=== PATIENT | male | born 1940 | race Caucasian/White ===

== ENCOUNTER 2017-07-27 12:05 | Outpatient (RCR) | payer MEDICARE, OTHER, SELFPAY ==
[2017-07-27 12:29] LABS: International Normalized Ratio 2.8; Prothrombin Time (Protime)PT. 28.4 SECONDS (11.7-14.9)
== END 2017-07-27 12:30 | disposition home or self-care (01) ==
LOC: LAB 12:05
PROVIDERS: Family Provider Internal Medicine; PCP Internal Medicine; Visit Provider Internal Medicine Cardiovascular Disease
DX: I49.01 Ventricular fibrillation (principal)
CPT/HCPCS: 36415; 85610

== ENCOUNTER 2017-09-13 13:35 | Outpatient (RCR) | payer MEDICARE, OTHER, SELFPAY ==
[2017-08-25 10:56] LABS: International Normalized Ratio 2.7; Prothrombin Time (Protime)PT. 27.6 SECONDS (11.7-14.9)
[2017-09-13 16:07] LABS: International Normalized Ratio 1.3; Prothrombin Time (Protime)PT. 15.9 SECONDS (11.7-14.9)
== END 2017-09-13 14:00 | disposition home or self-care (01) ==
LOC: LAB 13:35
PROVIDERS: Family Provider Internal Medicine; PCP Internal Medicine; Visit Provider Internal Medicine Cardiovascular Disease
DX: I49.01 Ventricular fibrillation (principal)
CPT/HCPCS: 36415; 85610

== ENCOUNTER 2017-09-27 10:41 | Outpatient (RCR) | payer MEDICARE, OTHER, SELFPAY ==
[2017-09-27 11:38] LABS: Hematocrit 42.4 % (40-54); Hemoglobin 14.6 g/dl (13.0-16.5); Mean Corp Hgb Conc 34.4 g/gl (32-36); Mean Corpuscular Hgb 34.8 pg (27.0-32.0); Mean Platelet Vol. 10.5 fl (6.2-12.0); Platelet Count 135 K/mm3 (150-450); RBC Distribution Width CV 12.1 % (11.6-14.6); RBC Distribution Width SD 44.3 fl (35.1-43.9); White Blood Count 7.7 K/mm3 (4.4-11.0)
[2017-09-27 11:40] LABS: Scan Indicated on CBC? Y/N NO
[2017-09-27 11:44] LABS: International Normalized Ratio 2.5; Prothrombin Time (Protime)PT. 27.4 SECONDS (11.7-14.9)
[2017-09-27 12:00] LABS: AST(SGOT) 21 U/L (15-37); Alanine Aminotransfer ALT/SGPT 38 U/L (16-61); Albumin, Serum 3.3 g/dL (3.2-5.0); Alkaline Phosphatase 119 U/L (45-117); Anion Gap 4 (5-15); BUN 12 mg/dL (7-18); BUN/Creat Ratio 12.9 RATIO (10-20); Bilirubin, Direct 0.22 mg/dL (0.00-0.30); Calcium,Total 8.1 mg/dL (8.5-10.1); Chloride 104 mmol/L (98-107); Cholesterol 126 mg/dL (200); Creatinine, Serum 0.93 mg/dL (0.70-1.30); EST Glomerular Filtration Rate 84 mL/min (>60); Est Glom Filt Rate - Afr Amer 101 mL/min (>60); Glucose 96 mg/dL (74-106); High Density Lipoprotein 45 mg/dL; Potassium 4.7 mmol/L (3.5-5.1); Protein, Total 6.3 g/dL (6.4-8.2); Sodium Level 137 mmol/L (136-145); Triglycerides 150 mg/dL; Very Low Density Lipoprotein 30 mg/dL (5-40)
== END 2017-09-27 11:00 | disposition home or self-care (01) ==
LOC: LAB 10:41
PROVIDERS: Family Provider Internal Medicine; PCP Internal Medicine; Visit Provider Internal Medicine Cardiovascular Disease
DX: Z79.899 Other long term (current) drug therapy (principal); R51 Headache; R42 Dizziness and giddiness; R53.83 Other fatigue; I49.01 Ventricular fibrillation
CPT/HCPCS: 36415; 80048; 80061; 80076; 85027; 85610

== ENCOUNTER 2017-11-14 11:05 | Outpatient (RCR) | payer MEDICARE, OTHER, SELFPAY ==
[2017-10-31 12:05] LABS: International Normalized Ratio 3.2; Prothrombin Time (Protime)PT. 32.7 SECONDS (11.7-14.9)
[2017-11-14 12:38] LABS: International Normalized Ratio 3.2; Prothrombin Time (Protime)PT. 33.2 SECONDS (11.7-14.9)
== END 2017-11-14 12:00 | disposition home or self-care (01) ==
LOC: LAB 11:05
PROVIDERS: Family Provider Internal Medicine; PCP Internal Medicine; Visit Provider Internal Medicine Cardiovascular Disease
DX: I49.01 Ventricular fibrillation (principal)
CPT/HCPCS: 36415; 85610

== ENCOUNTER → 2017-11-15 12:35 | Outpatient (CLI) | payer MEDICARE, OTHER, SELFPAY ==
--- NOTE | 2017-11-15 12:36 | CDU_ITS ---
Reason For Study: TIA Rt. Velocities/BP Lt. Velocities/BP Prox CCA 104.0/24.6 cm/sec. Prox CCA 125.0/24.4 cm/sec. Mid CCA 99.1/17.0 cm/sec. Mid CCA 108.0/23.6 cm/sec. Dist CCA 79.7/18.2 cm/sec. Dist CCA 86.4/20.4 cm/sec. Prox ICA 76.2/14.1 cm/sec. Prox ICA 87.4/26.4 cm/sec. Mid ICA 72.1/18.8 cm/sec. Mid ICA 90.9/25.8 cm/sec. Dist ICA 67.5/20.2 cm/sec. Dist ICA 90.9/27.0 cm/sec. Rt. ICA/CCA = .77. Lt. ICA/CCA = .84. Prox ECA 137.0/14.1 cm/sec. Prox ECA 95.1/15.7 cm/sec. Rt. Vert. 44.6/12.9 cm/sec. Lt. Vert. 39.9/13.5 cm/sec. Right Extracranial There is intimal thickening but no significant atherosclerotic plaque noted in the right common carotid artery. There is heterogeneous, irregular atherosclerotic plaque noted in the right internal carotid artery. There is heterogeneous, irregular atherosclerotic plaque noted in the right external carotid artery. Antegrade flow is noted in the right vertebral artery. Left Extracranial There is intimal thickening but no significant atherosclerotic plaque noted in the left common carotid artery. There is heterogeneous, irregular atherosclerotic plaque noted in the left internal carotid artery. There is no significant atherosclerotic plaque noted in the left external carotid artery. Antegrade flow is noted in the left vertebral artery. Procedure Carotid Duplex [id number]. Exam performed in department. Interpretation Summary Mild (<50%) stenosis right extracranial internal carotid. Mild (<50%) stenosis left extracranial internal carotid. Flow within the vertebral arteries is antegrade bilaterally. Ordering Physician: Rukhsana Abraham Referring Physician: Jose Wolfe M.D. Performed By: Maria Dolores Lewis RVT
== END ==
PROVIDERS: Family Provider Internal Medicine; PCP Internal Medicine; Visit Provider Physician Assistant Medical
DX: R42 Dizziness and giddiness (principal)
CPT/HCPCS: 93880

== ENCOUNTER 2017-12-08 10:22 | Outpatient (RCR) | payer MEDICARE, OTHER, SELFPAY ==
[2017-11-29 10:48] LABS: International Normalized Ratio 1.4
[2017-12-08 13:01] LABS: International Normalized Ratio 2.4; Prothrombin Time (Protime)PT. 26.2 SECONDS (11.7-14.9)
== END 2017-12-08 11:00 | disposition home or self-care (01) ==
LOC: LAB 10:22
PROVIDERS: Family Provider Internal Medicine; PCP Internal Medicine; Visit Provider Internal Medicine Cardiovascular Disease
DX: I49.01 Ventricular fibrillation (principal)
CPT/HCPCS: 36415; 85610

== ENCOUNTER 2017-12-08 17:58 | Emergency (ER) | payer MEDICARE, OTHER, SELFPAY ==
[2017-12-08 17:59] VITALS: BP 139/77; PULSE 66; RESP 18; TEMP 37.1; O2SAT 97; BMI 30.2
[2017-12-08 18:05] LABS: Bedside Glucose 76 mg/dL (70-110)
--- NOTE | 2017-12-08 18:12 | EKG12_ITS ---
Test Reason : NEURO S/SX Blood Pressure : / mmHG Vent. Rate : 064 BPM Atrial Rate : 064 BPM P-R Int : 166 ms QRS Dur : 086 ms QT Int : 446 ms P-R-T Axes : 020 025 052 degrees QTc Int : 460 ms Normal sinus rhythm Low voltage QRS (limb leads) Confirmed by FRANCISCO MEJIA, ARANZA ([id number]), news editor RENEA MANRIQUE ([id number]) on 12/14/2017 1:43:12 PM Referred By: LUIS ENRIQUE/SYED Confirmed By:ARANZA SINGH MD
--- NOTE | 2017-12-08 18:12 | CT_ITS ---
STUDY: CT BRAIN WITHOUT CONTRAST REASON FOR EXAM: Male, 77 years old. Left sided facial droop. Previous strokes. RADIATION DOSAGE (If Supplied By Facility): CTDIvol = ( 44.99 ) mGy, DLP = ( 796.11 ) mGycm TECHNIQUE: Transaxial CT imaging of the brain was performed without administration of intravenous contrast material. Individualized dose optimization techniques were used for this CT. COMPARISON: None. FINDINGS: Normal soft tissue structures. Normal calvarium. There is mild cerebral atrophy with widening of the extra-axial spaces and ventricular dilatation. There are areas of decreased attenuation within the white matter tracts of the supratentorial brain, consistent with microvascular disease changes. Stable prominent lacunar infarct in the mid left internal capsule. Normal brainstem. There is mild cerebellar atrophy. There is no intracranial hemorrhage. There are no findings of an acute ischemic infarction. Normal visualized paranasal sinuses. CT/Brain/Head without Contrast IMPRESSION: No acute abnormality or change. Atrophy, white matter disease, and previous lacunar infarcts. Electronically Signed: Martín Grimes MD at 19:26 EDT , Service support ,
--- NOTE | 2017-12-08 18:15 | ED.VISSUMM ---
- ER Visit Summary Date of Service: 12/08/17 Chief Complaint: Possible stroke History of Present Illness: The patient is a 77 M who presents with difficulty speaking that occurred when he woke up from a nap approximate 1 hour prior to arrival. Patient states he was normal when he laid down for a nap at approximately 3:00 PM today. Patient woke up approximately half hour ago and was having difficulty speaking. Patient states he knew what he wanted to say but was having difficulty expressing his words. Patient states this seems to be improved upon arrival to the emergency department. Patient denies any visual changes. Patient denies any numbness or weakness. Patient denies any chest pain or shortness of breath. Patient denies any nausea or vomiting. Patient denies any other symptoms. Physical Examination: Vital signs are stable. Patient is afebrile. Patient is in no acute distress. Cranial nerves II through XII are intact except for a slight facial weakness on the right. There are no visual field deficits noted. Sensation was intact to light touch in the bilateral upper and lower extremities. Patient stated there was a slight decrease sensation to light touch in the right side of his face. Strength is 5/5 bilaterally in the upper and lower extremities. There is good heel to olguin and finger to nose testing. There is no expressive aphasia noted. Patient has an NIH score of 1. Heart was regular rate and rhythm. Lungs are clear and equal bilaterally. There are no carotid bruits auscultated. Abdomen is soft and nontender. The remaining physical exam is within normal limits. Test Results: CT scan of the brain was obtained was negative. Chest x-ray does not show any acute cardiopulmonary process. CBC, metabolic profile, and troponin were obtained were all within normal limits. Emergency Department Course and Treatment: Patient was advised to be admitted for further evaluation of his TIA. Patient refuses. Patient was advised that he could have another TIA and a permanent stroke. Patient understands and does not want to be admitted to the hospital at this time. Patient will sign out AGAINST MEDICAL ADVICE. Disposition: Discharged AGAINST MEDICAL ADVICE Impression: TIA This note was generated with [employer] dictation software. It may contain incorrect words, spelling, and punctuation that were not noted in review of the chart prior to signing ED Disposition - Plan for ED Patient: Disposition: Against Medical Advice Chief Complaint: Neuro S/Sx Diagnosis: TIA (transient ischemic attack) Instructions: ED Transient Ischemic Attack Referrals: Jose Wolfe MD [Primary Care Provider] -
--- NOTE | 2017-12-08 18:20 | RAD_ITS ---
STUDY: X-RAY CHEST REASON FOR EXAM: Male, 77 years old. CVA. TECHNIQUE: Single AP portable view of the chest. COMPARISON: 10/07/2016. FINDINGS: The lungs are clear and expanded. There is no demonstrated pleural abnormality. Sternal cerclage wires and vascular clips are present from a prior sternotomy and coronary artery bypass graft procedure (CABG). Normal mediastinum and brit[place]. Normal visualized pulmonary arteries. Normal visualized aortic arch and descending thoracic aorta. Normal visualized thoracic spine. Normal visualized ribs, clavicles, and shoulders. There is no demonstrated abnormality of the visualized soft tissue structures of the upper abdomen. RAD/Chest 1 View IMPRESSION: No acute chest disease. Electronically Signed: Martín Grimes MD at 18:40 EDT , Service support ,
[2017-12-08 18:23] LABS: Absolute Lymphocyte Count 1.73 X10^3/ul (0.83-4.51); Absolute Neutrophil Count 5.9 X10^3/uL (2.0-7.7); Basophil# 0.01 X10^3/uL; Basophil% 0.1 % (0-1); Eosinophils% 2.2 % (0-5); Hematocrit 42.8 % (40-54); Lymphocyte # 1.73 X10^3/ul (4.0); Lymphocyte % 19.3 % (19-41); Mean Corpuscular Hgb 35.3 pg (27.0-32.0); Mean Corpuscular Volume 100.7 fL (80-94); Mean Platelet Vol. 10.8 fl (6.2-12.0); Monocyte# 1.09 X10^3/uL; Monocyte% 12.2 % (0-10); Neutrophil # 5.89 X10^3/uL (2.7-7.7); Neutrophil % 65.9 % (47-70); Platelet Count 148 K/mm3 (150-450); RBC Distribution Width CV 12.5 % (11.6-14.6); RBC Distribution Width SD 45.3 fl (35.1-43.9); Red Blood Count 4.25 M/mm3 (4.6-6.2)
[2017-12-08 18:24] LABS: POSITIVE COUNT NO; POSITIVE DIFFERENTIAL NO; POSITIVE MORPHOLOGY NO
[2017-12-08 18:28] LABS: International Normalized Ratio 2.4; Prothrombin Time (Protime)PT. 26.3 SECONDS (11.7-14.9)
[2017-12-08 18:29] LABS: Partial Thromboplast Time 35.3 Seconds (24.1-36.2)
[2017-12-08 18:37] VITALS: BP 109/65; PULSE 63; RESP 16; O2SAT 97
[2017-12-08 18:38] LABS: Anion Gap 6 (5-15); BUN 13 mg/dL (7-18); BUN/Creat Ratio 11.3 RATIO (10-20); Calcium,Total 8.6 mg/dL (8.5-10.1); Chloride 101 mmol/L (98-107); Creatinine, Serum 1.15 mg/dL (0.70-1.30); EST Glomerular Filtration Rate 65 mL/min (>60); Est Glom Filt Rate - Afr Amer 79 mL/min (>60); Estimated Creatinine Clearance 48.54 ml/min; Glucose 85 mg/dL (74-106); Potassium 4.4 mmol/L (3.5-5.1); Sodium Level 134 mmol/L (136-145)
[2017-12-08 19:10] VITALS: BP 123/81; PULSE 63; RESP 19; O2SAT 94
[2017-12-08 19:12] VITALS: BP 123/81; PULSE 66; RESP 19; O2SAT 95
[2017-12-08 20:49] VITALS: BP 118/80; PULSE 65; RESP 18; O2SAT 96
--- NOTE | 2017-12-08 20:50 | ED.RN ---
Pt chose to leave AMA. Dr. Marion talked with the patient at length about the risks. pt and state they understand the risks and plan to follow up with PCP.
== END 2017-12-08 20:50 | disposition left against medical advice (07) ==
PROVIDERS: Emergency Provider Emergency Medicine; Family Provider Internal Medicine; PCP Internal Medicine
DX: G45.9 Transient cerebral ischemic attack, unspecified (principal); E78.00 Pure hypercholesterolemia, unspecified; I48.91 Unspecified atrial fibrillation; I49.01 Ventricular fibrillation; Z79.01 Long term (current) use of anticoagulants; Z79.82 Long term (current) use of aspirin; Z79.899 Other long term (current) drug therapy
CPT/HCPCS: 36415; 70450; 71045; 80048; 82962; 84484; 85025; 85610; 85730; 93005; 99284; A4216

== ENCOUNTER 2018-01-10 10:37 | Outpatient (RCR) | payer MEDICARE, OTHER, SELFPAY ==
--- NOTE | 2017-12-26 11:07 | DT_ITS ---
This patient was seen during an EMR downtime December 19, 2017 - December 26, 2017. This patient may have a combination of paper and electronic documentation or all paper documentation. All documentation is viewable within the e-chart portion of [facility] for each patient visit.
[2017-12-26 11:50] LABS: Prothrombin Time (Protime)PT. 31.3 SECONDS (11.7-14.9)
== END 2018-01-10 11:00 | disposition home or self-care (01) ==
LOC: LAB 10:37
PROVIDERS: Family Provider Internal Medicine; PCP Internal Medicine; Visit Provider Internal Medicine Cardiovascular Disease
DX: I49.01 Ventricular fibrillation (principal)
CPT/HCPCS: 36415; 85610

== ENCOUNTER 2018-02-09 11:40 | Outpatient (RCR) | payer MEDICARE, OTHER, SELFPAY ==
[2018-02-09 12:11] LABS: Prothrombin Time (Protime)PT. 30.9 SECONDS (11.7-14.9)
== END 2018-02-09 13:00 | disposition home or self-care (01) ==
LOC: LAB 11:40
PROVIDERS: Family Provider Internal Medicine; PCP Internal Medicine; Visit Provider Internal Medicine Cardiovascular Disease
DX: I49.01 Ventricular fibrillation (principal)
CPT/HCPCS: 36415; 85610

== ENCOUNTER 2018-03-09 10:40 | Outpatient (RCR) | payer MEDICARE, OTHER, SELFPAY ==
[2018-03-09 11:31] LABS: Prothrombin Time (Protime)PT. 31.7 SECONDS (11.7-14.9)
== END 2018-03-21 10:52 | disposition home or self-care (01) ==
LOC: LAB 10:40
PROVIDERS: Family Provider Internal Medicine; PCP Internal Medicine; Visit Provider Internal Medicine Cardiovascular Disease
DX: I49.01 Ventricular fibrillation (principal)
CPT/HCPCS: 36415; 85610

== ENCOUNTER 2018-03-29 10:36 | Outpatient (RCR) | payer MEDICARE, OTHER, SELFPAY ==
[2018-03-21 11:21] LABS: International Normalized Ratio 1.4; Prothrombin Time (Protime)PT. 17.4 SECONDS (11.7-14.9)
[2018-03-29 11:18] LABS: International Normalized Ratio 1.8; Prothrombin Time (Protime)PT. 20.9 SECONDS (11.7-14.9)
[2018-03-29 11:42] LABS: AST(SGOT) 18 U/L (15-37); Alanine Aminotransfer ALT/SGPT 35 U/L (16-61); Albumin, Serum 3.4 g/dL (3.2-5.0); Alkaline Phosphatase 93 U/L (45-117); Bilirubin, Direct 0.22 mg/dL (0.00-0.30); Cholesterol 112 mg/dL (200); Globulin 3.2 g/dL (2.2-4.2); High Density Lipoprotein 43 mg/dL; Protein, Total 6.6 g/dL (6.4-8.2); Triglycerides 153 mg/dL; Very Low Density Lipoprotein 31 mg/dL (5-40)
== END 2018-03-29 12:00 | disposition home or self-care (01) ==
LOC: LAB 10:36
PROVIDERS: Family Provider Internal Medicine; PCP Internal Medicine; Visit Provider Internal Medicine Cardiovascular Disease
DX: I49.01 Ventricular fibrillation (principal); E78.5 Hyperlipidemia, unspecified; Z79.899 Other long term (current) drug therapy
CPT/HCPCS: 36415; 80061; 80076; 85610

== ENCOUNTER 2018-05-10 10:27 | Outpatient (RCR) | payer MEDICARE, OTHER, SELFPAY ==
[2018-04-20 13:27] LABS: International Normalized Ratio 3.1; Prothrombin Time (Protime)PT. 32.5 SECONDS (11.7-14.9)
[2018-05-10 11:03] LABS: International Normalized Ratio 3.2; Prothrombin Time (Protime)PT. 32.6 SECONDS (11.7-14.9)
== END 2018-05-10 12:00 | disposition home or self-care (01) ==
LOC: LAB 10:27
PROVIDERS: Family Provider Internal Medicine; PCP Internal Medicine; Referring Provider Internal Medicine Cardiovascular Disease; Visit Provider Internal Medicine Cardiovascular Disease
DX: I49.01 Ventricular fibrillation (principal)
CPT/HCPCS: 36415; 85610

== ENCOUNTER 2018-05-25 10:48 | Outpatient (RCR) | payer MEDICARE, OTHER, SELFPAY ==
[2018-05-25 11:48] LABS: International Normalized Ratio 2.6; Prothrombin Time (Protime)PT. 28.1 SECONDS (11.7-14.9)
== END 2018-06-19 10:56 | disposition home or self-care (01) ==
LOC: LAB 10:48
PROVIDERS: Family Provider Internal Medicine; PCP Internal Medicine; Referring Provider Internal Medicine Cardiovascular Disease; Visit Provider Internal Medicine Cardiovascular Disease
DX: I49.01 Ventricular fibrillation (principal)
CPT/HCPCS: 36415; 85610

== ENCOUNTER 2018-06-03 14:15 | Inpatient (IN) | payer MEDICARE, OTHER, SELFPAY ==
[2018-06-03] VITALS (13 sets, daily range): BP systolic 129–154; BP diastolic 70–90; PULSE 58–78; RESP 14–20; TEMP 36.4–36.8; O2SAT 95–98; BMI 31.4; BMI 32.0
[2018-06-03 14:41] LABS: Bedside Glucose 101 mg/dL (70-110)
--- NOTE | 2018-06-03 14:42 | CT_ITS ---
STUDY: CT BRAIN WITHOUT CONTRAST REASON FOR EXAM: Male, 78 years old. Slurred speech RADIATION DOSAGE (If Supplied By Facility): CTDIvol = ( 44.99 ) mGy, DLP = ( 812.98 ) mGycm TECHNIQUE: Transaxial CT imaging of the brain was performed without administration of intravenous contrast material. Individualized dose optimization techniques were used for this CT. COMPARISON: 12/08/2017 FINDINGS: There is stable old lacunar infarct in the left internal capsule. There is no acute bleed or infarct. There are stable chronic ischemic and atrophic changes. The ventricles are normal in configuration. There is no hydrocephalus. The visualized paranasal sinuses are clear. The mastoid air cells are well aerated. There is no skull fracture. CT/Brain/Head without Contrast IMPRESSION: Stable old lacunar infarct in the left internal capsule. Stable chronic ischemic and atrophic changes. No acute intracranial abnormality. Electronically Signed: Ezra Soriano, at 15:15 EST Tel , Service support ,
--- NOTE | 2018-06-03 14:42 | EKG12_ITS ---
Test Reason : NEURO S/SX Blood Pressure : / mmHG Vent. Rate : 061 BPM Atrial Rate : 061 BPM P-R Int : 188 ms QRS Dur : 082 ms QT Int : 466 ms P-R-T Axes : 028 027 067 degrees QTc Int : 469 ms Normal sinus rhythm Normal ECG Confirmed by TERRY MEJIA, STEFFI ([id number]), film editor supervisor RENEA MANRIQUE ([id number]) on 06/07/2018 11:43:07 AM Referred By: Steffi Jasso Confirmed By:STEFFI JASSO MD
--- NOTE | 2018-06-03 14:50 | RAD_ITS ---
STUDY: X-RAY CHEST REASON FOR EXAM: Male, 78 years old. Stroke symptoms. TECHNIQUE: Single AP portable view of the chest. COMPARISON: 12/08/2017. FINDINGS: The lungs are clear and expanded. There is no demonstrated pleural abnormality. Sternal cerclage wires and vascular clips are present from a prior sternotomy and coronary artery bypass graft procedure (CABG). Normal mediastinum and britany. Normal visualized pulmonary arteries. Normal visualized aortic arch and descending thoracic aorta. Normal visualized thoracic spine. Normal visualized ribs, clavicles, and shoulders. There is no demonstrated abnormality of the visualized soft tissue structures of the upper abdomen. RAD/Chest 1 View IMPRESSION: No acute chest disease. Electronically Signed: Martín Grimes MD at 16:05 EST , Service support ,
[2018-06-03 14:55] LABS: Absolute Lymphocyte Count 1.51 X10^3/ul (0.83-4.51); Absolute Neutrophil Count 4.3 X10^3/uL (2.0-7.7); Basophil# 0.02 X10^3/uL; Basophil% 0.3 % (0-1); Eosinophil# 0.12 X10^3/uL; Eosinophils% 1.7 % (0-5); Hematocrit 44.3 % (40-54); Hemoglobin 15.4 g/dl (13.0-16.5); Lymphocyte # 1.51 X10^3/ul (4.0); Lymphocyte % 21.6 % (19-41); Mean Corp Hgb Conc 34.8 g/gl (32-36); Mean Corpuscular Hgb 35.6 pg (27.0-32.0); Mean Corpuscular Volume 102.5 fL (80-94); Mean Platelet Vol. 10.7 fl (6.2-12.0); Monocyte% 14.3 % (0-10); Neutrophil # 4.33 X10^3/uL (2.7-7.7); Platelet Count 146 K/mm3 (150-450); RBC Distribution Width CV 12.3 % (11.6-14.6); Red Blood Count 4.32 M/mm3 (4.6-6.2)
[2018-06-03 15:00] LABS: POSITIVE COUNT NO; POSITIVE DIFFERENTIAL NO; POSITIVE MORPHOLOGY NO
[2018-06-03 15:09] LABS: Anion Gap 7 (5-15); BUN 11 mg/dL (7-18); BUN/Creat Ratio 10.3 RATIO (10-20); Calcium,Total 8.6 mg/dL (8.5-10.1); Chloride 101 mmol/L (98-107); Creatinine, Serum 1.07 mg/dL (0.70-1.30); EST Glomerular Filtration Rate 71 mL/min (>60); Est Glom Filt Rate - Afr Amer 86 mL/min (>60); Estimated Creatinine Clearance 51.34 ml/min; Glucose 75 mg/dL (74-106); Potassium 3.9 mmol/L (3.5-5.1); Sodium Level 136 mmol/L (136-145)
[2018-06-03 16:07] LABS: International Normalized Ratio 1.9; Prothrombin Time (Protime)PT. 21.9 SECONDS (11.7-14.9)
--- NOTE | 2018-06-03 16:37 | ED.VISSUMM ---
- ER Visit Summary Date of Service: 06/03/18 Chief Complaint: Aphasia History of Present Illness: The patient is a 78 M with aphasia greater than 24 hours of aphasia. He understands everything but cannot get all his words out. He has no weakness no ataxia no sensory deficits that he knows of. He has a history of a stroke with mostly resolved deficits as well as a recent TIA. Physical Examination: Not appear in acute distress. Moist mucous membranes, no obvious facial deformity No C-spine tenderness supple neck. Regular rate and rhythm without any obvious murmurs Clear lungs bilaterally speaking in full sentences without any obvious respiratory distress Abdomen soft and nontender no guarding or rebound Moves all extremities without any difficulty or pain. Skin does not show any obvious rashes or lesions, no trauma. NIH stroke scale is 2, he gets a point for expressive aphasia as well as 1 for decreased sensation on the right face. Emergency Department Course and Treatment: Patient has an unremarkable emergency workup, however he has obvious aphasia and will be admitted to hospital for further neurological studies. Admit in stable condition Impression: Expressive aphasia This note was generated with [employer] dictation software. It may contain incorrect words, spelling, and punctuation that were not noted in review of the chart prior to signing ED Disposition - Plan for ED Patient: Chief Complaint: Neuro S/Sx Referrals: Joes Wolfe MD [Primary Care Provider] -
--- NOTE | 2018-06-03 16:43 | ED.DCSUM_ITS ---
- ER Visit Summary Date of Service: 06/03/18 Chief Complaint: Aphasia History of Present Illness: The patient is a 78 M with aphasia greater than 24 hours of aphasia. He understands everything but cannot get all his words out. He has no weakness no ataxia no sensory deficits that he knows of. He has a hi story of a stroke with mostly resolved deficits as well as a recent TIA. Physical Examination: Not appear in acute distress. Moist mucous membranes, no obvious facial deformity No C-spine tenderness supple neck. Regular rate and rhythm without any obvious murmurs Clear lungs bilaterally speaking in full sentences without any obvious respiratory distress Abdomen soft and nontender no guarding or rebound Moves all extremities without any difficulty or pain. Skin does not show any obvious rashes or lesions, no trauma. NIH stroke scale is 2, he gets a point for expressive aphasia as well as 1 for decreased sensation on the right face. Emergency Department Course and Treatment: Patient has an unremarkable emergency workup, however he has obvious aphasia and will be admitted to hospital for further neurological studies. Admit in stable condition Impression: Expressive aphasia This note was generated with [employer] dictation software. It may contain incorrect words, spelling, and punctuation that were not noted in review of the chart prior to signing ED Disposition - Plan for ED Patient: Chief Complaint: Neuro S/Sx Referrals: Jose Wolfe MD [Primary Care Provider] -
--- NOTE | 2018-06-03 16:53 | PCM.HP.STD ---
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) Anticoagulant Ventricular fibrillation (Chronic) Atherosclerotic heart disease of [place] coronary artery without angina pectoris (Chronic) Atrial fibrillation (Chronic) Anticoagulant long-term use (Chronic) Hx of CABG (Chronic) Cerebrovascular disease (Chronic) Dyslipidemia (Chronic) HTN (hypertension) (Chronic) History of syncope (Chronic) history of right eye visual problems (Chronic) Medical History: Medical History (Last Updated 11/08/17 @ 10:19 by Andra Gifford) Ventricular fibrillation (Chronic) I49.01 Atherosclerotic heart disease of [place] coronary artery without angina pectoris (Chronic) I25.10 Acute coronary thrombosis not resulting in myocardial infarction (Resolved) I24.0 Atrial fibrillation (Chronic) I48.91 Anticoagulant long-term use (Chronic) Z79.01 Dyslipidemia (Chronic) E78.5 HTN (hypertension) (Chronic) I10 Chest discomfort R07.89 Allergies lisinopril Allergy (Verified 02/10/18 10:19) Unknown pravastatin Allergy (Verified 02/10/18 10:19) Unknown pregabalin [From Lyrica] Adverse Reaction (Verified 02/10/18 10:19) Other quinalone Allergy (Uncoded 12/08/17 18:03) Unknown Home Medications: Ambulatory Orders Medication Instructions Recorded Nitroglycerin [Nitrostat] 0.4 mg SUBLINGUAL Q5M PRN #30 tab 05/23/13 Tamsulosin HCl [Flomax] 0.4 mg PO DAILY 05/23/13 Aspirin [Aspirin, Baby] 81 mg PO DAILY 02/02/16 Furosemide [Lasix] 20 mg PO PRN PRN 02/02/16 Atorvastatin Calcium [Lipitor] 40 mg PO QHS 10/11/16 Pantoprazole Sodium [Protonix] 40 mg PO DAILY 10/11/16 Tramadol HCl [Ultram] 50 mg PO DAILY 10/11/16 Sotalol HCl [Betapace (Beta 120 mg PO BID 12/08/17 Sonia)] warfarin 5 mg tablet 5 mg PO .COMPLEX #90 tab 12/27/17 Surgical History: Surgical History (Last Updated 02/10/18 @ 10:20 by Sofia Nolt) Hx of hernia repair (Resolved) Z98.890, Z87.19 S/P CABG x 3 (Resolved) Z95.1 /04, CABG X 3, ACOSTA to LAD, SVG to DX branch of Anterior Descending and RCA H/O percutaneous transluminal coronary angioplasty (Resolved) Z98.61 08/04/12, LHC & subsequent PTCA & CHAD to RCA, unsuccessful angioplasty of CX with chronic total occlusion History of cholecystectomy Z90.49 History of tonsillectomy Z90.89 Surgical History: cholecystectomy, coronary bypass surgery, tonsillectomy Smoking Status: Former smoker - Physical Exam Vital Signs Temp Pulse Resp BP Pulse Ox 97.5 F L 58 L 20 H 139/80 H 98 06/03/18 14:16 06/03/18 16:05 06/03/18 16:05 06/03/18 16:05 06/03/18 16:05 Oxygen Delivery Method Room Air Weight: 88.451 kg Body Mass Index (BMI) 31.4 Finger Stick Blood Glucose 101 Laboratory Tests Past 24 Hrs 06/03/18 06/03/18 06/03/18 14:35 14:35 14:35 WBC 7.0 RBC 4.32 L Hgb 15.4 Hct 44.3 MCV 102.5 H MCH 35.6 H MCHC 34.8 RDW 12.3 RDW Differential 46.0 H Plt Count 146 L MPV 10.7 Immature Gran % (Auto) 0.100 Neut % (Auto) 62.0 Lymph % (Auto) 21.6 [place] % (Auto) 14.3 H Eos % (Auto) 1.7 Baso % (Auto) 0.3 Absolute Neuts (auto) 4.3 Absolute Lymphs (auto) 1.51 Total Counted Not Reportable PT 21.9 H INR 1.9 APTT 36.0 Sodium 136 Potassium 3.9 Chloride 101 Carbon Dioxide 28.0 Anion Gap 7 BUN 11 Creatinine 1.07 Estim Creat Clear Calc 51.34 Est GFR (MDRD) Af Amer 86 Est GFR (MDRD) Non-Af 71 BUN/Creatinine Ratio 10.3 Glucose 75 Calcium 8.6 Troponin I < 0.015 POC Glucose 06/03/18 14:24 POC Glucose 101 Assessment/Plan All Active Problems (Last Updated 11/08/17 @ 10:19 by Andra Gifford) Unstable angina (Acute) Other specified transient cerebral ischemias (Acute) Carotid bruit (Acute) Hx of hernia repair (Resolved) S/P CABG x 3 (Resolved) H/O percutaneous transluminal coronary angioplasty (Resolved) Acute coronary thrombosis not resulting in myocardial infarction (Resolved) Chest pain (Acute)
--- NOTE | 2018-06-03 17:13 | PCM.HP.STD ---
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 He has episodic periods where he is unable to formulate words correctly and they come out unintelligable. He states he can understand his and knows what he wants to say but cannot speak correctly. This has been waxing and waning all week. It became worse yesterday. He also had a headache associated with it. On interview he appears to be able to speak well. His feels he is slurring his speech somewhat. He feels overall more week. He has no worsening oh his chronic visual changes. No dizziness or LH. has not noticed facial droop. States last INR was 3 weeks ago and was 2.5. 1.9 in ER. He recently stopped taking aspirin. No new numbness or tingling. 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) Anticoagulant Ventricular fibrillation (Chronic) Atherosclerotic heart disease of andreafski coronary artery without angina pectoris (Chronic) Atrial fibrillation (Chronic) Anticoagulant long-term use (Chronic) Hx of CABG (Chronic) Cerebrovascular disease (Chronic) Dyslipidemia (Chronic) HTN (hypertension) (Chronic) History of syncope (Chronic) history of right eye visual problems (Chronic) Medical History: Medical History (Last Updated 11/08/17 @ 10:19 by Andra Gifford) Ventricular fibrillation (Chronic) I49.01 Atherosclerotic heart disease of andreafski coronary artery without angina pectoris (Chronic) I25.10 Acute coronary thrombosis not resulting in myocardial infarction (Resolved) I24.0 Atrial fibrillation (Chronic) I48.91 Anticoagulant long-term use (Chronic) Z79.01 Dyslipidemia (Chronic) E78.5 HTN (hypertension) (Chronic) I10 Chest discomfort R07.89 Allergies lisinopril Allergy (Verified 02/10/18 10:19) Unknown pravastatin Allergy (Verified 02/10/18 10:19) Unknown pregabalin [From Lyrica] Adverse Reaction (Verified 02/10/18 10:19) Other quinalone Allergy (Uncoded 12/08/17 18:03) Unknown Home Medications: Ambulatory Orders Medication Instructions Recorded Nitroglycerin [Nitrostat] 0.4 mg SUBLINGUAL Q5M PRN #30 tab 05/23/13 Tamsulosin HCl [Flomax] 0.4 mg PO DAILY 05/23/13 Furosemide [Lasix] 20 mg PO PRN PRN 02/02/16 Atorvastatin Calcium [Lipitor] 40 mg PO QHS 10/11/16 Pantoprazole Sodium [Protonix] 40 mg PO DAILY 10/11/16 Tramadol HCl [Ultram] 50 mg PO BID PRN 10/11/16 Sotalol HCl [Betapace (Beta 120 mg PO BID 12/08/17 Sonia)] Warfarin Sodium [Jantoven] 5 mg PO DAILY 06/03/18 Surgical History: Surgical History (Last Updated 02/10/18 @ 10:20 by Sofia Lyons) Hx of hernia repair (Resolved) Z98.890, Z87.19 S/P CABG x 3 (Resolved) Z95.1 /04, CABG X 3, ACOSTA to LAD, SVG to DX branch of Anterior Descending and RCA H/O percutaneous transluminal coronary angioplasty (Resolved) Z98.61 08/04/12, LHC & subsequent PTCA & CHAD to RCA, unsuccessful angioplasty of CX with chronic total occlusion History of cholecystectomy Z90.49 History of tonsillectomy Z90.89 Surgical History: cholecystectomy, coronary bypass surgery, tonsillectomy Smoking Status: Former smoker Tobacco Use: Non-smoker Alcohol: None Drugs: None - *Family History Maternal Family History: Family History (Last Updated 02/10/18 @ 10:21 by Sofia Lyons) Mother No problems noted. Father Cancer Sister Cancer History Items: Cancer Review of Systems Constitutional: Reports: Weakness - generalized. Denies: Chills, Fever, Weight Change HEENT: Denies: Head Aches, Sinus Congestion, Sinus Drainage Cardiovascular: Denies: Chest Pain, Palpitations Respiratory: Denies: Cough, Shortness of breath at rest, Sputum production Gastrointestinal: Denies: Abdominal Pain, Nausea, Vomiting Genitourinary: Denies: Dysuria Musculoskeletal: Denies: Joint Pain, Joint Tenderness Skin: Denies: Rash, Wounds Neurological: Reports: - - expressive aphasia, slurred speech. Denies: Focal weakness, Numbness, Tingling Psychiatric: Denies: Anxiety, Depression, Homicidal Ideations, Suicidal Ideations Hematologic/ Lymphatic: Denies: Easy Bruising, Easy Bleeding VTE Information - Inpt Only VTE Present on Admission: No VTE Mechan Device Prophylaxis: None VTE Pharm Prophylaxis ordered?: Yes Patient Problems: Active and Suspected Problems (Last Updated 11/08/17 @ 10:19 by Andra Gifford) CVA (cerebral vascular accident) (Acute) - Physical Exam General: Alert, Oriented x3, Cooperative HEENT: Atraumatic, PERRLA, EOMI, Normocephalic Neck: Supple, No JVD, Negative Carotid Bruits Lungs: Clear to auscultation, Normal air movement Cardiovascular: Regular rate, No murmurs Abdomen: Bowel Sounds Present, Soft, Non Tender Extremities: No edema, Capillary Refill Less than 3 Seconds Skin: No rashes, No breakdown Musculoskeletal: No Tenderness to Palpation of Joints or Extremities Neurological: Cranial nerves II-XII grossly intact Psych/Mental Status: Normal Affect, Appropriate Vital Signs Temp Pulse Resp BP Pulse Ox 97.5 F L 71 17 154/90 H 97 06/03/18 14:16 06/03/18 17:03 06/03/18 17:03 06/03/18 17:03 06/03/18 17:03 Oxygen Delivery Method Room Air Weight: 195 lb Body Mass Index (BMI) 31.4 Finger Stick Blood Glucose 101 Laboratory Tests Past 24 Hrs 06/03/18 06/03/18 06/03/18 14:35 14:35 14:35 WBC 7.0 RBC 4.32 L Hgb 15.4 Hct 44.3 MCV 102.5 H MCH 35.6 H MCHC 34.8 RDW 12.3 RDW Differential 46.0 H Plt Count 146 L MPV 10.7 Immature Gran % (Auto) 0.100 Neut % (Auto) 62.0 Lymph % (Auto) 21.6 Toombs % (Auto) 14.3 H Eos % (Auto) 1.7 Baso % (Auto) 0.3 Absolute Neuts (auto) 4.3 Absolute Lymphs (auto) 1.51 Total Counted Not Reportable PT 21.9 H INR 1.9 APTT 36.0 Sodium 136 Potassium 3.9 Chloride 101 Carbon Dioxide 28.0 Anion Gap 7 BUN 11 Creatinine 1.07 Estim Creat Clear Calc 51.34 Est GFR (MDRD) Af Amer 86 Est GFR (MDRD) Non-Af 71 BUN/Creatinine Ratio 10.3 Glucose 75 Calcium 8.6 Troponin I < 0.015 POC Glucose 06/03/18 14:24 POC Glucose 101 Assessment/Plan All Active Problems (Last Updated 11/08/17 @ 10:19 by Andra Gifford) CVA (cerebral vascular accident) (Acute) Unstable angina (Acute) Other specified transient cerebral ischemias (Acute) Carotid bruit (Acute) Hx of hernia repair (Resolved) S/P CABG x 3 (Resolved) H/O percutaneous transluminal coronary angioplasty (Resolved) Acute coronary thrombosis not resulting in myocardial infarction (Resolved) Chest pain (Acute) 1. CVA - new onset intermittent expressive aphasia, headache - CT brain with chronic changes and old lacunar infarct. MRI brain, MRA head and neck. Echo in AM. Neuro consult. INR subtherapeutic at 1.9. Recently stopped aspirin. Says he had dark stools, check Hemoccult. EKG SR. Maintain on tele. PT, OT, ST evals. Prior stroke with right sided deficits. Maximize statin therapy. 2. Hx PAfib - on coumadin. follow INR. EKG NSR. He does not feel when he goes into afib. 3. CAD - prior stent, CABG. Pt of Dr. Cao. 4. HTN - somewhat elevated on arrival. trend 5. HLD - statin 6. Mild thrombocytopenia - trend. 6. Legally blind DVT ppx: warfarin, trend INR DC planning: PT, OT, ST. This patient was seen by Gabriele Currie PA-C under the supervision of Doctor Mendoza. <Gema Mendoza - Last Filed: 06/03/18 18:02> History of Present Illness The patient is a 78 year old M [] Past Medical History Medical History: Medical History (Last Updated 11/08/17 @ 10:19 by Andra Gifford) Ventricular fibrillation (Chronic) I49.01 Atherosclerotic heart disease of [place]reafski coronary artery without angina pectoris (Chronic) I25.10 Acute coronary thrombosis not resulting in myocardial infarction (Resolved) I24.0 Atrial fibrillation (Chronic) I48.91 Anticoagulant long-term use (Chronic) Z79.01 Dyslipidemia (Chronic) E78.5 HTN (hypertension) (Chronic) I10 Chest discomfort R07.89 Allergies acetaminophen [From Percocet] Allergy (Verified 06/03/18 17:43) Other lisinopril Allergy (Verified 02/10/18 10:19) Unknown oxycodone [From Percocet] Allergy (Verified 06/03/18 17:43) Other pravastatin Allergy (Verified 02/10/18 10:19) Unknown pregabalin [From Lyrica] Adverse Reaction (Verified 02/10/18 10:19) Other quinalone Allergy (Uncoded 12/08/17 18:03) Unknown Surgical History: Surgical History (Last Updated 02/10/18 @ 10:20 by oSfia Lyons) Hx of hernia repair (Resolved) Z98.890, Z87.19 S/P CABG x 3 (Resolved) Z95.1 /04, CABG X 3, ACOSTA to LAD, SVG to DX branch of Anterior Descending and RCA H/O percutaneous transluminal coronary angioplasty (Resolved) Z98.61 08/04/12, C & subsequent PTCA & CHAD to RCA, unsuccessful angioplasty of CX with chronic total occlusion History of cholecystectomy Z90.49 History of tonsillectomy Z90.89 - *Family History Maternal Family History: Family History (Last Updated 02/10/18 @ 10:21 by Sofia Lyons) Mother No problems noted. Father Cancer Sister Cancer - Physical Exam Vital Signs Temp Pulse Resp BP Pulse Ox 97.5 F L 71 17 154/90 H 97 06/03/18 14:16 06/03/18 17:03 06/03/18 17:03 06/03/18 17:03 06/03/18 17:03 Oxygen Delivery Method Room Air Weight: 87.362 kg Body Mass Index (BMI) 32.0 Finger Stick Blood Glucose 101 Laboratory Tests Past 24 Hrs 06/03/18 06/03/18 06/03/18 14:35 14:35 14:35 WBC 7.0 RBC 4.32 L Hgb 15.4 Hct 44.3 MCV 102.5 H MCH 35.6 H MCHC 34.8 RDW 12.3 RDW Differential 46.0 H Plt Count 146 L MPV 10.7 Immature Gran % (Auto) 0.100 Neut % (Auto) 62.0 Lymph % (Auto) 21.6 Toombs % (Auto) 14.3 H Eos % (Auto) 1.7 Baso % (Auto) 0.3 Absolute Neuts (auto) 4.3 Absolute Lymphs (auto) 1.51 Total Counted Not Reportable PT 21.9 H INR 1.9 APTT 36.0 Sodium 136 Potassium 3.9 Chloride 101 Carbon Dioxide 28.0 Anion Gap 7 BUN 11 Creatinine 1.07 Estim Creat Clear Calc 51.34 Est GFR (MDRD) Af Amer 86 Est GFR (MDRD) Non-Af 71 BUN/Creatinine Ratio 10.3 Glucose 75 Calcium 8.6 Troponin I < 0.015 POC Glucose 06/03/18 14:24 POC Glucose 101 Assessment/Plan This patient was seen in conjunction with MATT Omer. I have independently interviewed and examined the patient and reviewed pertinent historical, laboratory, and other data. Please refer to MATT Omer note for his patient's presentation, findings, and recommendations. I have reviewed and his note and concur with his documentation 78-year-old male with past medical history of chronic atrial fibrillation, hypertension, hyperlipidemia, history of CVA in 1999 with residual right-sided weakness, walks without a cane or any assistive device. Patient comes in with a one-week history of intermittent expressive dysphasia/dysarthria. His noted that he is been having on and off problems trying to get his words out. His speech comes out slurred. Over the last 2 days he is been having headaches with persistent speech. He denies any weakness in any part of his body or numbness or tingling. He was on aspirin but stopped a couple of months ago. Is on Coumadin only. Last INR 3 weeks ago was therapeutic. Denies any chest pain or dizziness or palpitations PMHx: in addition to the above patient has history of CAD s/p RCA stent, status post CABG PSHx: CABG(2003), status post cholecystectomy, status post tonsillectomy, status post hernia repair, status post cardiac stent(2012) FHX: History of cancer in father and sister SHx: Denies any alcohol, smoking, use of illicit drugs Physical Exam: Vitals appears stable blood pressure of 129/87, heart rate 63, respiratory rate 17, SPO2 97% on room air, Temp 97.5F Gen: Appears comfortable, not pale, no jaundice, well hydrated CVS:HS I +II, regular, no murmurs RESP: Clinically clear to auscultation GI: Bowel sounds present, soft, nontender, no palpable organs EXT:No edema 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 Acute slurred speech, likely secondary to CVA/TIA 2. Chronic atrial fibrillation, rate controlled 3. Subtherapeutic INR 4. CAD status post CABG, status post stent 5. Hypertension, not on meds 6. Hyperlipidemia 7. BPH Imaging: Brain CT on admission showed stable old lacunar infarct in the left internal capsule, chronic ischemic and atrophic changes, no acute intracranial abnormality. Chest x-ray -no acute cardiopulmonary process Plan: Admit to PCU, monitor on telemetry, MRI of the head, MRA of the head and neck Neurology consult 2D echo, lipid profile, Hgb A1c Hold off aspirin for now until GI bleed has been ruled out Stool occult blood stat, H&H Continue Coumadin with daily INRs PT/OT/speech therapy consult Will continue sotalol for now even though patient has to have permissive hypertension; needed to control heart rate Code Visit Inpatient E&M: 09521 Init Hosp L3
--- NOTE | 2018-06-03 17:54 | ECHOD_ITS ---
Reason For Study: TIA/CVA Procedure This was a 2D Doppler, Color Flow transthoracic echocardiogram. Exam performed portable in patient room. Left Ventricle Normal LV size. Left ventricular systolic function is normal. The estimated ejection fraction is 55 %. No evidence for diastolic dysfunction. No regional wall motion abnormalities noted. Right Ventricle Normal RV size. Normal systolic function. Atria The left atrium is moderately enlarged. Normal right atrium. Bubble contrast study negative for right to left interatrial shunt. Mitral Valve Normal mitral valve. Tricuspid Valve Normal tricuspid valve. Mild (1+) tricuspid valve insufficiency. Pulmonary artery systolic pressure is 25 mmHg. Aortic Valve Normal aortic valve. Pulmonic Valve Normal pulmonic valve. Great Vessels Normal aortic root. The pulmonary artery is normal size. Normal inferior vena cava. Pericardium/Pleural No pericardial effusion. Medication Performed a rapid injection of agitated mix of 9 cc saline and 1cc air to assess for atrial septal defect. MMode/2D Measurements & Calculations LVIDd: 5.2 cm IVSd: 1.1 cm Ao root diam: 3.4 cm LVIDs: 3.2 cm LVPWd: 1.00 cm RVDd: 3.4 cm FS: 39.1 % LAV(MOD-bp): 74.7 ml LA A4 area: 26.6 cm2 LA dimension(2D): 5.0 cm LAV(MOD-bp) Indexed: 38.5 ml/m2 LAV(MOD-sp2): 65.4 ml LAV(MOD-sp4): 88.9 ml Time Measurements MV dec time: 0.16 sec Doppler Measurements & Calculations MV E max kj: 77.5 cm/sec Lat Peak E' Kj: 8.9 cm/sec Med Peak E' Kj: 5.9 cm/sec MV A max kj: 64.3 cm/sec E/E' lat: 8.7 E/E' med: 13.0 MV E/A: 1.2 Ao V2 max: 98.9 cm/sec LV V1 max: 82.1 cm/sec PA V2 max: 125.5 cm/sec Ao max P.9 mmHg LV V1 max P.7 mmHg TR max kj: 230.1 cm/sec TR max P.2 mmHg Interpretation Summary Normal LV size. Left ventricular systolic function is normal. The estimated ejection fraction is 55 %. No evidence for diastolic dysfunction. Bubble contrast study negative for right to left interatrial shunt. Ordering Physician: Gema Mendoza Referring Physician: Jose Wolfe Performed By: Joi Pineda RDCS, RVT
[2018-06-03 19:15] LABS: Hemoglobin A1c 5.5 % (4.2-6.3)
[2018-06-03] MEDS: Atorvastatin Calcium 40 MG Tablet PO (21:16)
[2018-06-03] MEDS: Sotalol Hydrochloride 80 MG Tablet 120 MG PO (21:16)
[2018-06-03] MEDS: Pantoprazole Sodium 40 MG Tablet PO (21:16)
[2018-06-03 21:21] LABS: Hematocrit 39.5 % (40-54); Hemoglobin 13.5 g/dl (13.0-16.5)
[2018-06-04] VITALS (11 sets, daily range): BP systolic 105–133; BP diastolic 53–79; PULSE 57–65; RESP 18; TEMP 36.2–36.7; O2SAT 93–97
[2018-06-04 06:07] LABS: International Normalized Ratio 1.9; Prothrombin Time (Protime)PT. 22.1 SECONDS (11.7-14.9)
[2018-06-04 06:29] LABS: Anion Gap 12 (5-15); BUN 9 mg/dL (7-18); BUN/Creat Ratio 8.9 RATIO (10-20); Calcium,Total 8.3 mg/dL (8.5-10.1); Chloride 102 mmol/L (98-107); Cholesterol 112 mg/dL (200); Creatinine, Serum 1.01 mg/dL (0.70-1.30); EST Glomerular Filtration Rate 76 mL/min (>60); Est Glom Filt Rate - Afr Amer 92 mL/min (>60); Estimated Creatinine Clearance 52.43 ml/min; Glucose 98 mg/dL (74-106); High Density Lipoprotein 38 mg/dL; Potassium 4.1 mmol/L (3.5-5.1); Sodium Level 139 mmol/L (136-145); Triglycerides 141 mg/dL; Very Low Density Lipoprotein 28 mg/dL (5-40)
--- NOTE | 2018-06-04 08:55 | MRI_ITS ---
STUDY: MRI BRAIN WITHOUT CONTRAST REASON FOR EXAM: Male, 78 years old. cva, slurred speech, hc prior cva with rt sided deficit. TECHNIQUE: Standardized multiplanar fat and water weighted pulse sequences were obtained. COMPARISON: 06/03/2018 CT of the head FINDINGS: There is mild cerebral atrophy with widening of the extra-axial spaces and ventricular dilatation. There are multiple white matter hyperintensities, distributed throughout the deep white matter tracts of the cerebral hemispheres, consistent with moderate chronic white matter ischemic changes. Left basal ganglia/rodriguez radiata chronic lacunar infarct is again noted. Normal thalami. There is no extra-axial fluid accumulation. Normal flow voids within the major intracranial circulation suggesting patency by spin echo criteria. Normal sella turcica, pituitary gland, infundibular stalk, optic chiasm and hypothalamus. Normal tectal plate and pineal gland. There are chronic white matter ischemic changes of the jose m. The midbrain and medulla are otherwise normal. Normal cerebellum. Normal basal cisterns. Normal bilateral temporal bones. Normal bilateral internal auditory canals. MRI/Brain without Contrast IMPRESSION: No acute intracranial abnormality. Chronic left rodriguez radiata infarct. Electronically Signed: Kip Bell MD at 12:25 EST Tel , Service support ,
[2018-06-04] MEDS: Pantoprazole Sodium 40 MG Tablet PO ×2 (09:26→23:10)
[2018-06-04] MEDS: Sotalol Hydrochloride 80 MG Tablet 120 MG PO ×2 (09:27→23:05)
--- NOTE | 2018-06-04 10:55 | MRI_ITS ---
STUDY: MRA NECK WITH AND WITHOUT CONTRAST REASON FOR EXAM: Male, 78 years old. cva, slurred speech, hc prior cva with rt sided deficit. TECHNIQUE: 3-D [id number] (TOF) imaging was performed in an 1.5 T MRI scanner. 9 ml of Gadavist was administered for the contrast enhanced images. COMPARISON: None. FINDINGS: RIGHT CAROTID ARTERIES: Normal right common carotid artery (CCA). Normal right common carotid bulb. Normal origin of the right internal carotid (ICA) artery without a hemodynamically significant stenosis. Normal visualized cervical portion of the right internal carotid artery. Normal origin of the right external carotid artery (ECA). LEFT CAROTID ARTERIES: Normal left common carotid artery (CCA). Normal left common carotid bulb. Normal origin of the left internal carotid (ICA) artery without a hemodynamically significant stenosis. Normal visualized cervical portion of the left internal carotid artery. Normal origin of the left external carotid artery (ECA). VERTEBRAL ARTERIES: Normal antegrade flow within the bilateral vertebral artery without a hemodynamically significant stenosis. MRI/MRA Neck WITH and W/O Contrast IMPRESSION: Normal bilateral cervical carotid and vertebral arteries. Electronically Signed: Kip Bell MD at 12:28 EST Tel , Service support ,
--- NOTE | 2018-06-04 10:55 | MRI_ITS ---
STUDY: MRA OF THE HEAD WITHOUT CONTRAST REASON FOR EXAM: Male, 78 years old. cva, slurred speech, hc prior cva with rt sided deficit. TECHNIQUE: 3-D [id number] (TOF) imaging was performed with MIPs. The study was performed unenhanced. COMPARISON: None. FINDINGS: Normal bilateral petrous carotid arteries. Normal right cavernous carotid artery with a normal supraclinoid bifurcation. Normal left cavernous carotid artery with a normal supraclinoid bifurcation. Normal right A1 segments of the anterior cerebral artery. Normal left A1 segments of the anterior cerebral artery. Normal intact anterior communicating artery (ACOM). Normal bilateral A2 segments of the anterior cerebral arteries. Normal right M1 and M2 segments of the middle cerebral arteries, with a normal M1 bifurcation. Normal left M1 and M2 segments of the middle cerebral arteries, with a normal M1 bifurcation. Normal right posterior communicating artery (PCOM). Normal left posterior communicating artery (PCOM). Normal bilateral vertebral arteries. Normal basilar artery with a normal basilar bifurcation. The visualized bilateral superior cerebellar (SCA) arteries are normal. Normal bilateral P1, P2 and visualized P3 segments of the posterior cerebral arteries. There is no demonstrated aneurysm of the [place] of [place]. There is no major vessel occlusion or hemodynamically significant stenosis. There is no demonstrated abnormality of the visualized brain. MRI/MRA Head ONLY without Contrast IMPRESSION: Normal MRA of the head Electronically Signed: Kip Bell MD at 12:26 EST Tel , Service support ,
--- NOTE | 2018-06-04 14:01 | PN_ITS ---
Patient Problems: Active and Suspected Problems (Last Updated 11/08/17 @ 10:19 by Andra Gifford) CVA (cerebral vascular accident) (Acute) Subjective: Patient reports no further issues with speaking, no slurred speech noticed by either. No change in vision, focal weakness, headache. Patient feels that his symptoms have resolved this morning. Patient is unsure why he is on Coumadin as opposed to 1 of the other oral anticoagulants, he is on warfarin for many years and has difficulty controlling his INR. - Physical Exam General: Alert, Oriented x3, Cooperative HEENT: Atraumatic, PERRLA, EOMI, Normocephalic Neck: Supple, No JVD, Negative Carotid Bruits Lungs: Clear to auscultation, Normal air movement Cardiovascular: Regular rate, No murmurs Abdomen: Bowel Sounds Present, Soft, Non Tender Extremities: No edema, Capillary Refill Less than 3 Seconds Skin: No rashes, No breakdown Musculoskeletal: No Tenderness to Palpation of Joints or Extremities Neurological: Cranial nerves II-XII grossly intact Psych/Mental Status: Normal Affect, Appropriate, Alert and oriented to time, place, person, mood and affect Vital Signs Temp Pulse Resp BP Pulse Ox 97.8 F 62 18 120/68 97 06/04/18 09:15 06/04/18 10:48 06/04/18 09:15 06/04/18 09:15 06/04/18 09:15 Oxygen Delivery Method Room Air Weight: 192 lb 9.6 oz Body Mass Index (BMI) 32.0 Finger Stick Blood Glucose 101 Intake and Output for Last 24 Hours 06/02/18 06/03/18 06/04/18 23:59 23:59 23:59 Intake Total 840 / 840 Balance 840 / 840 Laboratory Tests Past 24 Hrs 06/03/18 06/03/18 06/03/18 14:35 14:35 14:35 WBC 7.0 RBC 4.32 L Hgb 15.4 Hct 44.3 MCV 102.5 H MCH 35.6 H MCHC 34.8 RDW 12.3 RDW Differential 46.0 H Plt Count 146 L MPV 10.7 Immature Gran % (Auto) 0.100 Neut % (Auto) 62.0 Lymph % (Auto) 21.6 Crenshaw % (Auto) 14.3 H Eos % (Auto) 1.7 Baso % (Auto) 0.3 Absolute Neuts (auto) 4.3 Absolute Lymphs (auto) 1.51 Total Counted Not Reportable PT 21.9 H INR 1.9 APTT 36.0 Sodium 136 Potassium 3.9 Chloride 101 Carbon Dioxide 28.0 Anion Gap 7 BUN 11 Creatinine 1.07 Estim Creat Clear Calc 51.34 Est GFR (MDRD) Af Amer 86 Est GFR (MDRD) Non-Af 71 BUN/Creatinine Ratio 10.3 Glucose 75 Hemoglobin A1c Calcium 8.6 Troponin I < 0.015 Triglycerides Cholesterol LDL Cholesterol VLDL Cholesterol HDL Cholesterol 06/03/18 06/03/18 06/03/18 14:35 18:32 20:57 WBC RBC Hgb Hct MCV MCH MCHC RDW RDW Differential Plt Count MPV Immature Gran % (Auto) Neut % (Auto) Lymph % (Auto) Crenshaw % (Auto) Eos % (Auto) Baso % (Auto) Absolute Neuts (auto) Absolute Lymphs (auto) Total Counted PT INR APTT Sodium Potassium Chloride Carbon Dioxide Anion Gap BUN Creatinine Estim Creat Clear Calc Est GFR (MDRD) Af Amer Est GFR (MDRD) Non-Af BUN/Creatinine Ratio Glucose Hemoglobin A1c 5.5 Calcium Troponin I < 0.015 < 0.015 Triglycerides Cholesterol LDL Cholesterol VLDL Cholesterol HDL Cholesterol 06/03/18 06/04/18 06/04/18 20:57 05:35 05:35 WBC RBC Hgb 13.5 Hct 39.5 L MCV MCH MCHC RDW RDW Differential Plt Count MPV Immature Gran % (Auto) Neut % (Auto) Lymph % (Auto) Crenshaw % (Auto) Eos % (Auto) Baso % (Auto) Absolute Neuts (auto) Absolute Lymphs (auto) Total Counted PT 22.1 H INR 1.9 APTT Sodium 139 Potassium 4.1 Chloride 102 Carbon Dioxide 25.0 Anion Gap 12 BUN 9 Creatinine 1.01 Estim Creat Clear Calc 52.43 Est GFR (MDRD) Af Amer 92 Est GFR (MDRD) Non-Af 76 BUN/Creatinine Ratio 8.9 L Glucose 98 Hemoglobin A1c Calcium 8.3 L Troponin I Triglycerides 141 Cholesterol 112 LDL Cholesterol 46 VLDL Cholesterol 28 HDL Cholesterol 38 L POC Glucose 06/03/18 14:24 POC Glucose 101 Medical Necessity - Tobacco Use Smoking Status: Former smoker Tobacco Use: Non-smoker Assessment/Plan All Active Problems (Last Updated 11/08/17 @ 10:19 by Andra Gifford) CVA (cerebral vascular accident) (Acute) Unstable angina (Acute) Other specified transient cerebral ischemias (Acute) Carotid bruit (Acute) Hx of hernia repair (Resolved) S/P CABG x 3 (Resolved) H/O percutaneous transluminal coronary angioplasty (Resolved) Acute coronary thrombosis not resulting in myocardial infarction (Resolved) Chest pain (Acute) 1. CVA - new onset intermittent expressive aphasia, headache - CT brain with chronic changes and old lacunar infarct. MRI is negative for acute infarct. Neuro consult pending. Plan to change to eliquis/xarelto. Echo tomorrow. Hx CVA. 2. Hx PAfib - on coumadin. follow INR. EKG NSR. SR on tele. 3. CAD - prior stent, CABG. Pt of Dr. Cao. 4. HTN - somewhat elevated on arrival. trend 5. HLD - statin 6. Mild thrombocytopenia 6. Legally blind DVT ppx: warfarin, trend INR DC planning: PT, OT, ST. This patient was seen by Gabriele Currie PA-C under the supervision of Doctor Carranza.
[2018-06-04] MEDS: Tamsulosin HCl 0.4 MG Capsule PO (17:38)
[2018-06-04] MEDS: Atorvastatin Calcium 80 MG Tablet PO (23:05)
[2018-06-04] MEDS: APIXABAN 5 MG TABLET PO (23:05)
[2018-06-05] VITALS (7 sets, daily range): BP systolic 116–131; BP diastolic 68–71; PULSE 56–71; RESP 18; TEMP 36.4–36.9; O2SAT 97; BMI 32.0
[2018-06-05] MEDS: Sotalol Hydrochloride 80 MG Tablet 120 MG PO (09:11)
[2018-06-05] MEDS: APIXABAN 5 MG TABLET PO (09:11)
[2018-06-05] MEDS: Pantoprazole Sodium 40 MG Tablet PO (09:13)
--- NOTE | 2018-06-05 11:14 | CASEMGMT ---
NIVIA COLE assessment: Face to Face with pt for initial transition planning/care coordination assessment. NIVIA COLE introduced self and role at [facility], pt voices understanding and consents to assessment at this time. Pt is sitting up in chair in no distress at this time. Pt is A/O x4 at this time and answers all questions appropriately at this time. Pt's is at bedside during assessment. Care providers, pharmacy, and demographics verified at this time. PCP: Aiden Specialists: [facility] Preferred Pharmacy: [facility] mail order Insurance: MCR A/B, [employer] Prescription Benefit: [employer] Living Will/HPOA: Pt states has LW/HPOA and his is HPOA. Only the LW is on file at [facility] at this time. Pt is aware at this time, voices understanding. LNOK: Marilee Ramos, Living Arrangements: Pt states lives on main level of 2 story home with and states no concerns at home at this time. Transportation: Pt states drives and states no transportation concerns at this time. DME/HHC: Pt states does not have any current DME but is interested in possibly getting a white cane as he is legally blind. Pt states no hx of SNF or HHC in the past. Pt states no concerns with going home at time of discharge. Pt states does not smoke but does usually drink a couple beers/day. Per Francine HE, pt to be send home on Eliquis at discharge. Eliquis e-scribed to [facility] [place] and per pharmacist, pt has a $200 deductible and then the Eliquis will be $36.00/month. Pt provided with Eliquis 30 day free trial card previously and instructed on using at this time, voices understanding. Pt/ aware that the deductible will have to be paid at some point, voice understanding. Pt to be provided with contact number for [facility] [place] w/ disabilities to assist with white cane, etc. during f/u phone call by this NIVIA COLE on 06/06/18. Pt/ voice no further concerns/needs at this time. Advised pt/ to ask for CM if any further questions/concerns/needs arise, voice understanding. Plan: [place] NIVIA COLE
--- NOTE | 2018-06-05 11:58 | DCINST_ITS ---
- Discharge Diagnoses Current Active Problems: Current Active and Chronic Problems (Last Updated 11/08/17 @ 10:19 by Andra Gifford) CVA (cerebral vascular accident) (Acute) Paroxysmal A-fib (Chronic) CAD (coronary artery disease) (Chronic) HLD (hyperlipidemia) (Chronic) You will use the following diet at home:: Cardiac Your food should be the consistency of: Regular Your liquids should be the consistency of: Regular/Thin Discharge Activity: Return to Normal Activity Allergies/Adverse Reactions: Allergies acetaminophen [From Percocet] Allergy (Verified 06/03/18 17:43) Other lisinopril Allergy (Verified 02/10/18 10:19) Unknown oxycodone [From Percocet] Allergy (Verified 06/03/18 17:43) Other pravastatin Allergy (Verified 02/10/18 10:19) Unknown Quinolones Allergy (Verified 06/03/18 21:51) Unknown pregabalin [From Lyrica] Adverse Reaction (Verified 02/10/18 10:19) Other Medications to take at Discharge Nitroglycerin [Nitrostat] 0.4 mg SUBLINGUAL Q5M PRN #30 tab 05/23/13 Tamsulosin HCl [Flomax] 0.4 mg PO DAILY 05/23/13 Furosemide [Lasix] 20 mg PO PRN PRN 02/02/16 Pantoprazole Sodium [Protonix] 40 mg PO DAILY 10/11/16 Tramadol HCl [Ultram] 50 mg PO BID PRN 10/11/16 Sotalol HCl [Betapace (Beta Sonia)] 120 mg PO BID 12/08/17 Apixaban [Eliquis] 5 mg PO BID #60 tablet 06/05/18 Atorvastatin Calcium [Lipitor] 80 mg PO QHS #30 tablet 06/05/18 The following prescriptions were given: Apixaban [Eliquis] 5 mg PO BID #60 tablet Atorvastatin Calcium [Lipitor] 80 mg PO QHS #30 tablet Primary Care Physician: Jose Wolfe MD [Primary Care Provider] - Please follow up with your Primary Care Physician in: 1-2 weeks Test Results: Test results from this visit will be discussed in further detail at your follow- up appointment, if applicable. Please Follow Up With: Barney Jasso MD When: 3-4 weeks Please Follow Up With: Amandeep Leyva MD When: 3-4 weeks Proposed Discharge Date: 06/05/18
--- NOTE | 2018-06-05 12:26 | CON.PCM_ITS ---
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 Per patient he has some speech disturbances on Tuesday (06/02/18), his speech was gibberish per patient's , and per patient he was able to comprehend everything but could not get his words out, his speech was not fluent, it was associated with JAIMES, but denies any focal motor weakness, sensory loss, visual disturbances. Aphasia resolved lasted for few hours before his speech came back to baseline and at present denies any JAIMES. He lives with his , does not drive as is legally blind, denies any falls, does not use cane or walker to ambulate. Per ED documentation, his NIHSS was 2 on admission, INR was 1.9. MRI brain done on admission did not show any acute stroke, MRA head/neck did not show any hemodynamically significant stenosis or occlusion. Past Medical History Past Medical History (Chronic Problems): Chronic Problems (Last Updated 11/08/17 @ 10:19 by Andra Gifford) Paroxysmal A-fib (Chronic) CAD (coronary artery disease) (Chronic) HLD (hyperlipidemia) (Chronic) long-term use of drug (Chronic) Anticoagulant Ventricular fibrillation (Chronic) Atherosclerotic heart disease of [place] coronary artery without angina pectoris (Chronic) Atrial fibrillation (Chronic) Anticoagulant long-term use (Chronic) Hx of CABG (Chronic) Cerebrovascular disease (Chronic) Dyslipidemia (Chronic) HTN (hypertension) (Chronic) History of syncope (Chronic) history of right eye visual problems (Chronic) Medical History: Medical History (Last Updated 11/08/17 @ 10:19 by Andra Gifford) Ventricular fibrillation (Chronic) I49.01 Atherosclerotic heart disease of [place] coronary artery without angina pectoris (Chronic) I25.10 Acute coronary thrombosis not resulting in myocardial infarction (Resolved) I24.0 Atrial fibrillation (Chronic) I48.91 Anticoagulant long-term use (Chronic) Z79.01 Dyslipidemia (Chronic) E78.5 HTN (hypertension) (Chronic) I10 Chest discomfort R07.89 Allergies acetaminophen [From Percocet] Allergy (Verified 06/03/18 17:43) Other lisinopril Allergy (Verified 02/10/18 10:19) Unknown oxycodone [From Percocet] Allergy (Verified 06/03/18 17:43) Other pravastatin Allergy (Verified 02/10/18 10:19) Unknown Quinolones Allergy (Verified 06/03/18 21:51) Unknown pregabalin [From Lyrica] Adverse Reaction (Verified 02/10/18 10:19) Other Home Medications: Ambulatory Orders Medication Instructions Recorded Nitroglycerin [Nitrostat] 0.4 mg SUBLINGUAL Q5M PRN #30 tab 05/23/13 Tamsulosin HCl [Flomax] 0.4 mg PO DAILY 05/23/13 Furosemide [Lasix] 20 mg PO PRN PRN 02/02/16 Pantoprazole Sodium [Protonix] 40 mg PO DAILY 10/11/16 Tramadol HCl [Ultram] 50 mg PO BID PRN 10/11/16 Sotalol HCl [Betapace (Beta 120 mg PO BID 12/08/17 Sonia)] Apixaban [Eliquis] 5 mg PO BID #60 tablet 06/05/18 Atorvastatin Calcium [Lipitor] 80 mg PO QHS #30 tablet 06/05/18 Surgical History: Surgical History (Last Updated 02/10/18 @ 10:20 by Sofia Lyons) Hx of hernia repair (Resolved) Z98.890, Z87.19 S/P CABG x 3 (Resolved) Z95.1 /04, CABG X 3, ACOSTA to LAD, SVG to DX branch of Anterior Descending and RCA H/O percutaneous transluminal coronary angioplasty (Resolved) Z98.61 08/04/12, LHC & subsequent PTCA & CHAD to RCA, unsuccessful angioplasty of CX with chronic total occlusion History of cholecystectomy Z90.49 History of tonsillectomy Z90.89 Surgical History: cholecystectomy, coronary bypass surgery, tonsillectomy Lives: Spouse/ Significant Other Smoking Status: Former smoker Tobacco Use: Non-smoker Alcohol: None Drugs: None - *Family History Maternal Family History: Family History (Last Updated 02/10/18 @ 10:21 by Sofia Lyons) Mother No problems noted. Father Cancer Sister Cancer History Items: Cancer Review of Systems Constitutional: Reports: - - complete ROS negative except as documented in HPI Patient Problems: Active and Suspected Problems (Last Updated 11/08/17 @ 10:19 by Andra Gifford) CVA (cerebral vascular accident) (Acute) TIA (transient ischemic attack) (Acute) Aphasia (Acute) - Physical Exam General: Alert HEENT: Normocephalic Neck: Supple Lungs: Normal air movement Cardiovascular: Normal S1, Normal S2 Abdomen: Bowel Sounds Present Extremities: No cyanosis Neurological: - - consious, alert, AoAx3, CN 2-12 grossly intact, power 5/5 in all 4 extremities, no sensory loss, no cerebellar signs, no aphasia at present, Reflexes + B/L B/S/T/K/A, gait deferred. NIHSS 0 at present Psych/Mental Status: Normal Affect Vital Signs Temp Pulse Resp BP Pulse Ox 97.5 F L 59 L 18 131/71 H 97 06/05/18 09:17 06/05/18 10:59 06/05/18 09:17 06/05/18 09:17 06/05/18 09:17 Oxygen Delivery Method Room Air Weight: 87.362 kg Body Mass Index (BMI) 32.0 Finger Stick Blood Glucose 101 Intake and Output for Last 24 Hours 06/03/18 06/04/18 06/05/18 23:59 23:59 23:59 Intake Total 1280 / 1280 880 / 880 Balance 1280 / 1280 880 / 880 Assessment/Plan All Active Problems (Last Updated 11/08/17 @ 10:19 by Andra Gifford) CVA (cerebral vascular accident) (Acute) TIA (transient ischemic attack) (Acute) Aphasia (Acute) Unstable angina (Acute) Other specified transient cerebral ischemias (Acute) Carotid bruit (Acute) Hx of hernia repair (Resolved) S/P CABG x 3 (Resolved) H/O percutaneous transluminal coronary angioplasty (Resolved) Acute coronary thrombosis not resulting in myocardial infarction (Resolved) Chest pain (Acute) The patient is a 78 year old CM with PMH HTN, HLD, H/O CVA in 1999 with some mild residual right sided weakness, Afib on Coumadin (INR 1.9 on admission), CAD s/p stents, CABG [] admitted with aphasia. Per patient he has some speech disturbances on Tuesday (06/02/18), his speech was gibberish per patient's , and per patient he was able to comprehend everything but could not get his words out, his speech was not fluent, it was associated with JAIMES, but denies any focal motor weakness, sensory loss, visual disturbances. Aphasia resolved lasted for few hours before his speech came back to baseline and at present denies any JAIMES. He lives with his , does not drive as is legally blind, denies any falls, does not use cane or walker to ambulate. Per ED documentation, his NIHSS was 2 on admission, INR was 1.9. MRI brain done on admission did not show any acute stroke, MRA head/neck did not show any hemodynamically significant stenosis or occlusion. Impression TIA Expressive aphasia-resolved Plan -Coumadin changed to Eliquis 5 mg PO BID. Bleeding risk and S/E discussed with the patient. -On Statin -MRI brain and MRA head/neck reviewed -LDL-46, Zje5t-3.5% -TTE- EF 55%, moderately enlarged LA, no PFO, normal mitral valve -Stroke risk factors discussed and stroke education provided -GI/DVT prophylaxis -PT/OT and ST -Fall precautions -Further medical management per primary team -Follow up with Neurology in 2-3 weeks as outpatient -Please call with questions if any -Thank you for allowing us to participate in patient's care and management. Code Visit Inpatient E&M: 32754 Init Hosp L3
--- NOTE | 2018-06-05 12:43 | PCM.DC.SUM ---
<Gabriele Currie - Last Filed: 06/05/18 12:43> Discharge Date and Diagnosis - Problem List Patient Problems: Active and Suspected Problems (Last Updated 11/08/17 @ 10:19 by Andra Gifford) CVA (cerebral vascular accident) (Acute) TIA (transient ischemic attack) (Acute) Aphasia (Acute) Date of Admission: 06/03/18 Date of Discharge: 06/05/18 - Primary Discharge Diagnosis Active and Suspected Problems (Last Updated 11/08/17 @ 10:19 by Andra Gifford) TIA Hx prior CVA Paroxysmal Afib Subtherapeutic INR Hx CAD HTN HLD Mild Thrombocytopenia Legally Blind - Secondary Discharge Diagnosis Chronic Problems (Last Updated 11/08/17 @ 10:19 by Andra Gifford) Paroxysmal A-fib (Chronic) CAD (coronary artery disease) (Chronic) HLD (hyperlipidemia) (Chronic) custodial use of drug (Chronic) Anticoagulant Ventricular fibrillation (Chronic) Atherosclerotic heart disease of [place] coronary artery without angina pectoris (Chronic) Atrial fibrillation (Chronic) Anticoagulant long-term use (Chronic) Hx of CABG (Chronic) Cerebrovascular disease (Chronic) Dyslipidemia (Chronic) HTN (hypertension) (Chronic) History of syncope (Chronic) history of right eye visual problems (Chronic) Hospital Course and Treatment Imaging Results: Echo: Interpretation Summary Normal LV size. Left ventricular systolic function is normal. The estimated ejection fraction is 55 %. No evidence for diastolic dysfunction. Bubble contrast study negative for right to left interatrial shunt. CT/Brain/Head without Contrast IMPRESSION: Stable old lacunar infarct in the left internal capsule. Stable chronic ischemic and atrophic changes. No acute intracranial abnormality. RAD/Chest 1 View IMPRESSION: No acute chest disease. MRI/Brain without Contrast IMPRESSION: No acute intracranial abnormality. Chronic left rodriguez radiata infarct. MRI/MRA Head ONLY without Contrast IMPRESSION: Normal MRA of the head MRI/MRA Neck WITH and W/O Contrast IMPRESSION: Normal bilateral cervical carotid and vertebral arteries. Consults: Neuro - Gordon Operations: None Procedures: 2-D Echocardiogram Summary of Care Provided: Hospital Course: The patient is a 78 year old M with pmhx of prior stroke with mild right sided deficits, PAFib on warfarin, CAD, prior stent and CABG, HTN, HLD, thrombocytopenia who presented to the ER with c/o waxing and waning expressive aphasia for the past week. He was found to have negative CT brain and started recovering his speech in the ER. EKG was negative. INR was subtherapeutic. He was admitted for stroke work up and placed on the PCU on tele. No events on tele. Neuro was consulted. His speech completely resolved. MRI and MRAs were negative for stroke. Echo was unremarkable. Neuro felt that the patient had TIA. He was switched to eliquis therapy and his statin was maximized. He had no debility requiring further skilled therapy. He was discharged home in stable condition and will need to follow up with his PCP in 1-2 weeks, neuro and cardiology in 3-4 weeks. This patient was seen by Gabriele Currie PA-C under the supervision of Dr. Oneill [] Patient Problems: Active and Suspected Problems (Last Updated 11/08/17 @ 10:19 by Andra Gifford) CVA (cerebral vascular accident) (Acute) TIA (transient ischemic attack) (Acute) Aphasia (Acute) - Physical Exam General: Alert, Oriented x3, Cooperative HEENT: Atraumatic, PERRLA, EOMI, Normocephalic Neck: Supple, No JVD, Negative Carotid Bruits Lungs: Clear to auscultation, Normal air movement Cardiovascular: Regular rate, No murmurs Abdomen: Bowel Sounds Present, Soft, Non Tender Extremities: No edema, Capillary Refill Less than 3 Seconds Skin: No rashes, No breakdown Musculoskeletal: No Tenderness to Palpation of Joints or Extremities Neurological: Cranial nerves II-XII grossly intact Psych/Mental Status: Normal Affect, Appropriate Vital Signs Temp Pulse Resp BP Pulse Ox 97.5 F L 59 L 18 131/71 H 97 06/05/18 09:17 06/05/18 10:59 06/05/18 09:17 06/05/18 09:17 06/05/18 09:17 Oxygen Delivery Method Room Air Weight: 192 lb 9.6 oz Body Mass Index (BMI) 32.0 Finger Stick Blood Glucose 101 Intake and Output for Last 24 Hours 06/03/18 06/04/18 06/05/18 23:59 23:59 23:59 Intake Total 1280 / 1280 880 / 880 Balance 1280 / 1280 880 / 880 Discharge Diet: 1600 Calorie Control Diet, 4000 mg Sodium Diet Discharge Activity: Return to Normal Activity Home Medications: Medications to take at Discharge Nitroglycerin [Nitrostat] 0.4 mg SUBLINGUAL Q5M PRN #30 tab 05/23/13 Tamsulosin HCl [Flomax] 0.4 mg PO DAILY 05/23/13 Furosemide [Lasix] 20 mg PO PRN PRN 02/02/16 Pantoprazole Sodium [Protonix] 40 mg PO DAILY 10/11/16 Tramadol HCl [Ultram] 50 mg PO BID PRN 10/11/16 Sotalol HCl [Betapace (Beta Sonia)] 120 mg PO BID 12/08/17 Apixaban [Eliquis] 5 mg PO BID #60 tablet 06/05/18 Atorvastatin Calcium [Lipitor] 80 mg PO QHS #30 tablet 06/05/18 Following Prescrptions Were Given to Patient: Apixaban [Eliquis] 5 mg PO BID #60 tablet Atorvastatin Calcium [Lipitor] 80 mg PO QHS #30 tablet Primary Care Physician: Jose Wolfe MD [Primary Care Provider] - Please follow up with your Primary Care Physician in: 1-2 weeks Please Follow Up With: Barney Jasso MD When: 3-4 weeks Please Follow Up With: Amandeep Leyva MD When: 3-4 weeks Please Follow Up With: Jose Wolfe MD When: 1-2 Weeks Disposition: Home Minutes spent on discharge:: 35 Patient Condition:: Stable Medical Necessity - Tobacco Use Smoking Status: Former smoker Tobacco Use: Non-smoker Meaningful Use Info Meaningful Use Diagnoses (Choose all that apply): None applicable <Mati Oneill - Last Filed: 06/05/18 13:31> Discharge Date and Diagnosis - Primary Discharge Diagnosis Active and Suspected Problems (Last Updated 11/08/17 @ 10:19 by Andra Gifford) CVA (cerebral vascular accident) (Acute) TIA (transient ischemic attack) (Acute) Aphasia (Acute) - Secondary Discharge Diagnosis Chronic Problems (Last Updated 11/08/17 @ 10:19 by Andra Gifford) Paroxysmal A-fib (Chronic) CAD (coronary artery disease) (Chronic) HLD (hyperlipidemia) (Chronic) custodial use of drug (Chronic) Anticoagulant Ventricular fibrillation (Chronic) Atherosclerotic heart disease of [place] coronary artery without angina pectoris (Chronic) Atrial fibrillation (Chronic) Anticoagulant long-term use (Chronic) Hx of CABG (Chronic) Cerebrovascular disease (Chronic) Dyslipidemia (Chronic) HTN (hypertension) (Chronic) History of syncope (Chronic) history of right eye visual problems (Chronic) Hospital Course and Treatment Summary of Care Provided: This patient was seen in conjunction with Gabriele Currie PA-C . I have independently interviewed and examined the patient and reviewed pertinent historical, laboratory, and other data. Please refer to Gabriele Currie PA-C note for details of this patient's presentation, findings, and recommendations. I have reviewed Gabriele Currie PA-C note and concur with documented findings. In brief, patient is a 28-year-old gentleman with history of paroxysmal A. fib on Coumadin presented with symptoms consistent with TIA. Patient was apparently subtherapeutic on admission Hospital course: As documented above - Physical Exam Vital Signs Temp Pulse Resp BP Pulse Ox 97.5 F L 59 L 18 131/71 H 97 06/05/18 09:17 06/05/18 10:59 06/05/18 09:17 06/05/18 09:17 06/05/18 09:17 Oxygen Delivery Method Room Air Weight: 87.362 kg Body Mass Index (BMI) 32.0 Finger Stick Blood Glucose 101 Intake and Output for Last 24 Hours 06/03/18 06/04/18 06/05/18 23:59 23:59 23:59 Intake Total 1280 / 1280 880 / 880 Balance 1280 / 1280 880 / 880 Code Visit Inpatient E&M: 20744 Disch Hosp
--- NOTE | 2018-06-05 12:48 | DS.PCM_ITS ---
<Gabriele Currie - Last Filed: 06/05/18 12:43> Discharge Date and Diagnosis - Problem List Patient Problems: Active and Suspected Problems (Last Updated 11/08/17 @ 10:19 by Andra Gifford) CVA (cerebral vascular accident) (Acute) TIA (transient ischemic attack) (Acute) Aphasia (Acute) Date of Admission: 06/03/18 Date of Discharge: 06/05/18 - Primary Discharge Diagnosis Active and Suspected Problems (Last Updated 11/08/17 @ 10:19 by Andra Gifford) TIA Hx prior CVA Paroxysmal Afib Subtherapeutic INR Hx CAD HTN HLD Mild Thrombocytopenia Legally Blind - Secondary Discharge Diagnosis Chronic Problems (Last Updated 11/08/17 @ 10:19 by Andra Gifford) Paroxysmal A-fib (Chronic) CAD (coronary artery disease) (Chronic) HLD (hyperlipidemia) (Chronic) [facility] use of drug (Chronic) Anticoagulant Ventricular fibrillation (Chronic) Atherosclerotic heart disease of [place] coronary artery without angina pectoris (Chronic) Atrial fibrillation (Chronic) Anticoagulant long-term use (Chronic) Hx of CABG (Chronic) Cerebrovascular disease (Chronic) Dyslipidemia (Chronic) HTN (hypertension) (Chronic) History of syncope (Chronic) history of right eye visual problems (Chronic) Hospital Course and Treatment Imaging Results: Echo: Interpretation Summary Normal LV size. Left ventricular systolic function is normal. The estimated ejection fraction is 55 %. No evidence for diastolic dysfunction. Bubble contrast study negative for right to left interatrial shunt. CT/Brain/Head without Contrast IMPRESSION: Stable old lacunar infarct in the left internal capsule. Stable chronic ischemic and atrophic changes. No acute intracranial abnormality. RAD/Chest 1 View IMPRESSION: No acute chest disease. MRI/Brain without Contrast IMPRESSION: No acute intracranial abnormality. Chronic left rodriguez radiata infarct. MRI/MRA Head ONLY without Contrast IMPRESSION: Normal MRA of the head MRI/MRA Neck WITH and W/O Contrast IMPRESSION: Normal bilateral cervical carotid and vertebral arteries. Consults: Neuro - Gordon Operations: None Procedures: 2-D Echocardiogram Summary of Care Provided: Hospital Course: The patient is a 78 year old M with pmhx of prior stroke with mild right sided deficits, PAFib on warfarin, CAD, prior stent and CABG, HTN, HLD, thrombocytopenia who presented to the ER with c/o waxing and waning expressive aphasia for the past week. He was found to have negative CT brain and started recovering his speech in the ER. EKG was negative. INR was subtherapeutic. He was admitted for stroke work up and placed on the PCU on tele. No events on tele. Neuro was consulted. His speech completely resolved. MRI and MRAs were negative for stroke. Echo was unremarkable. Neuro felt that the patient had TIA. He was switched to eliquis therapy and his statin was maximized. He had no debility requiring further skilled therapy. He was discharged home in stable condition and will need to follow up with his PCP in 1-2 weeks, neuro and cardiology in 3-4 weeks. This patient was seen by Gabriele Currie PA-C under the supervision of Dr. Oneill [] Patient Problems: Active and Suspected Problems (Last Updated 11/08/17 @ 10:19 by Andra Gifford) CVA (cerebral vascular accident) (Acute) TIA (transient ischemic attack) (Acute) Aphasia (Acute) - Physical Exam General: Alert, Oriented x3, Cooperative HEENT: Atraumatic, PERRLA, EOMI, Normocephalic Neck: Supple, No JVD, Negative Carotid Bruits Lungs: Clear to auscultation, Normal air movement Cardiovascular: Regular rate, No murmurs Abdomen: Bowel Sounds Present, Soft, Non Tender Extremities: No edema, Capillary Refill Less than 3 Seconds Skin: No rashes, No breakdown Musculoskeletal: No Tenderness to Palpation of Joints or Extremities Neurological: Cranial nerves II-XII grossly intact Psych/Mental Status: Normal Affect, Appropriate Vital Signs Temp Pulse Resp BP Pulse Ox 97.5 F L 59 L 18 131/71 H 97 06/05/18 09:17 06/05/18 10:59 06/05/18 09:17 06/05/18 09:17 06/05/18 09:17 Oxygen Delivery Method Room Air Weight: 192 lb 9.6 oz Body Mass Index (BMI) 32.0 Finger Stick Blood Glucose 101 Intake and Output for Last 24 Hours 06/03/18 06/04/18 06/05/18 23:59 23:59 23:59 Intake Total 1280 / 1280 880 / 880 Balance 1280 / 1280 880 / 880 Discharge Diet: 1600 Calorie Control Diet, 4000 mg Sodium Diet Discharge Activity: Return to Normal Activity Home Medications: Medications to take at Discharge Nitroglycerin [Nitrostat] 0.4 mg SUBLINGUAL Q5M PRN #30 tab 05/23/13 Tamsulosin HCl [Flomax] 0.4 mg PO DAILY 05/23/13 Furosemide [Lasix] 20 mg PO PRN PRN 02/02/16 Pantoprazole Sodium [Protonix] 40 mg PO DAILY 10/11/16 Tramadol HCl [Ultram] 50 mg PO BID PRN 10/11/16 Sotalol HCl [Betapace (Beta Sonia)] 120 mg PO BID 12/08/17 Apixaban [Eliquis] 5 mg PO BID #60 tablet 06/05/18 Atorvastatin Calcium [Lipitor] 80 mg PO QHS #30 tablet 06/05/18 Following Prescrptions Were Given to Patient: Apixaban [Eliquis] 5 mg PO BID #60 tablet Atorvastatin Calcium [Lipitor] 80 mg PO QHS #30 tablet Primary Care Physician: Jose Wolfe MD [Primary Care Provider] - Please follow up with your Primary Care Physician in: 1-2 weeks Please Follow Up With: Barney Jasso MD When: 3-4 weeks Please Follow Up With: Amandeep Leyva MD When: 3-4 weeks Please Follow Up With: Jose Wolfe MD When: 1-2 Weeks Disposition: Home Minutes spent on discharge:: 35 Patient Condition:: Stable Medical Necessity - Tobacco Use Smoking Status: Former smoker Tobacco Use: Non-smoker Meaningful Use Info Meaningful Use Diagnoses (Choose all that apply): None applicable <Mati Oneill - Last Filed: 06/05/18 13:31> Discharge Date and Diagnosis - Primary Discharge Diagnosis Active and Suspected Problems (Last Updated 11/08/17 @ 10:19 by Andra Gifford) CVA (cerebral vascular accident) (Acute) TIA (transient ischemic attack) (Acute) Aphasia (Acute) - Secondary Discharge Diagnosis Chronic Problems (Last Updated 11/08/17 @ 10:19 by Andra Gifford) Paroxysmal A-fib (Chronic) CAD (coronary artery disease) (Chronic) HLD (hyperlipidemia) (Chronic) [facility]CI use of drug (Chronic) Anticoagulant Ventricular fibrillation (Chronic) Atherosclerotic heart disease of [place] coronary artery without angina pectoris (Chronic) Atrial fibrillation (Chronic) Anticoagulant long-term use (Chronic) Hx of CABG (Chronic) Cerebrovascular disease (Chronic) Dyslipidemia (Chronic) HTN (hypertension) (Chronic) History of syncope (Chronic) history of right eye visual problems (Chronic) Hospital Course and Treatment Summary of Care Provided: This patient was seen in conjunction with Gabriele Currie PA-C . I have independently interviewed and examined the patient and reviewed pertinent historical, laboratory, and other data. Please refer to Gabriele Currie PA-C note for details of this patient's presentation, findings, and recommendations. I have reviewed Gabriele Currie PA-C note and concur with documented findings. In brief, patient is a 28-year-old gentleman with history of paroxysmal A. fib on Coumadin presented with symptoms consistent with TIA. Patient was apparently subtherapeutic on admission Hospital course: As documented above - Physical Exam Vital Signs Temp Pulse Resp BP Pulse Ox 97.5 F L 59 L 18 131/71 H 97 06/05/18 09:17 06/05/18 10:59 06/05/18 09:17 06/05/18 09:17 06/05/18 09:17 Oxygen Delivery Method Room Air Weight: 87.362 kg Body Mass Index (BMI) 32.0 Finger Stick Blood Glucose 101 Intake and Output for Last 24 Hours 06/03/18 06/04/18 06/05/18 23:59 23:59 23:59 Intake Total 1280 / 1280 880 / 880 Balance 1280 / 1280 880 / 880 Code Visit Inpatient E&M: 97498 Disch Hosp
--- NOTE | 2018-06-06 15:14 | CASEMGMT ---
NIVIA COLE Discharge F/U Phone Call LACE: 11 Strata: 3 Discharge date: 06/05/18 Call date: 06/06/18 Call time: [id number] Duration: 6 minutes Admission dx: CVA Pt states has been doing 'pretty good' since discharge except being 'tired'. Pt states no questions regarding discharge instructions or medications at this time. Pt states that Dr. Wolfe's office called and moved up his appt that was scheduled for 06/23/18. Pt states that he used coupon for Eliquis and that he also spoke with Dr. Wolfe's office about covering script for Eliquis for 12 days until the first of the year so pt doesn't not have to pay full deductible back to back. Pt states no suggestions of [facility] at this time and states that the 'nurses were terrific and everything was satisfactory'. Pt states no further questions/concerns/needs at this time and was provided with the number for [employer] [facility] [place] [facility] so that pt can get assessment and possibly help with white cane as well as other resources. Pt/ voice gratitude at this time. S[place]en NIVIA COLE
== END 2018-06-05 14:13 | disposition home or self-care (01) | DRG 69 ==
LOC: ED 14:39 → PCU 17:24
PROVIDERS: Admitting Provider Internal Medicine; Emergency Provider Emergency Medicine; Family Provider Internal Medicine; PCP Internal Medicine; Visit Provider Internal Medicine
DX: G45.9 Transient cerebral ischemic attack, unspecified (principal); I69.351 Hemiplegia and hemiparesis following cerebral infarction affecting right dominant side; R29.702 NIHSS score 2; H54.8 Legal blindness, as defined in USA; D69.6 Thrombocytopenia, unspecified; E78.5 Hyperlipidemia, unspecified; I25.10 Atherosclerotic heart disease of native coronary artery without angina pectoris; Z95.5 Presence of coronary angioplasty implant and graft; Z95.1 Presence of aortocoronary bypass graft; Z79.01 Long term (current) use of anticoagulants; Z87.891 Personal history of nicotine dependence; I48.0 Paroxysmal atrial fibrillation; I10 Essential (primary) hypertension
CPT/HCPCS: 36415; 70450; 70544; 70549; 70551; 71045; 80048; 80061; 82962; 83036; 84484; 85014; 85018; 85025; 85610; 85730; 93005; 93306; 97162; 97166; 97530; 97802; 99283; A9585; Q9957; A4216

== ENCOUNTER 2018-08-10 11:05 | Inpatient (IN) | payer MEDICARE, OTHER, SELFPAY ==
[2018-06-30 10:37] VITALS: BMI 30.9
[2018-08-10] VITALS (17 sets, daily range): BP systolic 86–131; BP diastolic 55–82; PULSE 78–131; RESP 20–34; TEMP 36.8–38.6; O2SAT 90–99; BMI 33.3
--- NOTE | 2018-08-10 11:27 | RAD_ITS ---
STUDY: X-RAY CHEST REASON FOR EXAM: Male, 78 years old. Generalized weakness. Nausea and vomiting and chills. TECHNIQUE: Single AP portable view of the chest. COMPARISON: Comparison is made with prior study dated June 03, 2018. FINDINGS: EKG electrodes are seen. Mild degree of increased linear markings at the left lung base suggestive of left basilar atelectasis. There is no demonstrated pleural abnormality. Sternal cerclage wires and vascular clips are present from a prior sternotomy and coronary artery bypass graft procedure (CABG). Normal mediastinum and britany. Normal visualized pulmonary arteries. Normal visualized aortic arch and descending thoracic aorta. There are diffuse degenerative changes of the visualized thoracic spine. Normal visualized ribs, clavicles, and shoulders. There is no demonstrated abnormality of the visualized soft tissue structures of the upper abdomen. RAD/Chest 1 View (Portable) IMPRESSION: Mild degree of increased linear markings at the left lung base suggestive of linear atelectasis. Electronically Signed: Taz Evangelista MD at 12:25 EST , Service support ,
--- NOTE | 2018-08-10 11:28 | EKG12_ITS ---
Test Reason : GEN ILLNESS Blood Pressure : / mmHG Vent. Rate : 126 BPM Atrial Rate : 126 BPM P-R Int : 182 ms QRS Dur : 080 ms QT Int : 296 ms P-R-T Axes : 039 051 021 degrees QTc Int : 428 ms Sinus tachycardia with Premature atrial complexes Low voltage QRS (limb leads) Nonspecific ST abnormality Abnormal ECG Confirmed by FRANCISCO MEJIA, ARANZA ([id number]), image editor RENEA MANRIQUE ([id number]) on 08/15/2018 2:49:47 PM Referred By: JULIA Confirmed By:ARANZA SINGH MD
--- NOTE | 2018-08-10 12:15 | ED.VISSUMM ---
- ER Visit Summary Date of Service: 08/10/18 Chief Complaint: [Chills and generalized weakness] History of Present Illness: The patient is a 78 M [presents the emergency department complaint of chills and not feeling well this morning. states that she noted that patient was just shaking uncontrollably. Patient had 2 episodes of vomiting or dry heaves. He has not really had a cough. He denies any chest pain or shortness of breath. He denies any abdominal pain. His not had any diarrhea. Patient denies any sore throat. Patient does have a history of prior stroke, A. fib, hypertension, and coronary artery disease. He denies any sick contacts. He did receive a flu vaccine this year.] Physical Examination: [HEENT-PERRLA, EOMI. Cranial nerves II through XII grossly intact. TMs clear. Mucous membranes moist. No adenopathy. Cardiovascular-regular and tachycardic. No murmurs auscultated. Lungs-clear to auscultation, chest wall stable without crepitus or subcu emphysema Abdomen-normoactive bowel sounds, soft, nontender, no rebound or rigidity, no peritoneal signs. Extremities-intact ?4, normal range of motion, normal pulses, atraumatic] Test Results: [EKG obtained arrival shows sinus tachycardia with a ventricular rate of 126 bpm with occasional PACs. Patient had some nonspecific ST changes noted. CBC with differential shows a white count of 5.8, hemoglobin 15.7, hematocrit 44, platelets 107. Chemistries unremarkable. INR was 1.6. Troponin was less than 0.015. Lactate was 2.2. Influenza screen was negative. Urinalysis was normal. Chest x-ray showed some linear atelectasis left lung base.] Emergency Department Course and Treatment: [Patient was started on Zosyn empirically as I suspected sepsis although I do not have a source at this point] Treatment Plan: [Admit ] Disposition: [Admit] Impression: [Fever etiology uncertain Sepsis] This note was generated with [employer] dictation software. It may contain incorrect words, spelling, and punctuation that were not noted in review of the chart prior to signing ED Disposition - Plan for ED Patient: Chief Complaint: General Illness Referrals: Jose Wolfe MD [Primary Care Provider] -
[2018-08-10] MEDS: 0.9% Normal Saline 1,000 ML 150 ML IV (12:16)
[2018-08-10 12:44] LABS: Anion Gap 10 (5-15); BUN 11 mg/dL (7-18); BUN/Creat Ratio 10.6 RATIO (10-20); Calcium,Total 8.3 mg/dL (8.5-10.1); Chloride 102 mmol/L (98-107); Creatinine, Serum 1.04 mg/dL (0.70-1.30); EST Glomerular Filtration Rate 73 mL/min (>60); Est Glom Filt Rate - Afr Amer 89 mL/min (>60); Estimated Creatinine Clearance 49.02 ml/min; Glucose 104 mg/dL (74-106); Potassium 4.4 mmol/L (3.5-5.1); Sodium Level 137 mmol/L (136-145)
[2018-08-10 12:47] LABS: Absolute Lymphocyte Count 0.14 X10^3/ul (0.83-4.51); Absolute Neutrophil Count 5.6 X10^3/uL (2.0-7.7); Basophil# 0.01 X10^3/uL; Basophil% 0.2 % (0-1); Eosinophil# 0.03 X10^3/uL; Eosinophils% 0.5 % (0-5); Hematocrit 43.9 % (40-54); Hemoglobin 15.7 g/dl (13.0-16.5); Lymphocyte # 0.14 X10^3/ul (4.0); Lymphocyte % 2.4 % (19-41); Mean Corp Hgb Conc 35.8 g/gl (32-36); Mean Corpuscular Hgb 36.2 pg (27.0-32.0); Mean Corpuscular Volume 101.2 fL (80-94); Mean Platelet Vol. 11.2 fl (6.2-12.0); Monocyte# 0.06 X10^3/uL; Neutrophil # 5.57 X10^3/uL (2.7-7.7); Neutrophil % 95.7 % (47-70); Platelet Count 107 K/mm3 (150-450); RBC Distribution Width CV 11.7 % (11.6-14.6); Red Blood Count 4.34 M/mm3 (4.6-6.2); White Blood Count 5.8 K/mm3 (4.4-11.0)
[2018-08-10 12:48] LABS: Differential Indicated SCAN CRITERIA MET; POSITIVE COUNT NO; POSITIVE DIFFERENTIAL YES; POSITIVE MORPHOLOGY NO
[2018-08-10] MEDS: 0.9% Normal Saline 1,000 ML 999 ML IV ×3 (12:50→23:19)
[2018-08-10 12:51] LABS: International Normalized Ratio 1.6; Prothrombin Time (Protime)PT. 19.3 SECONDS (11.7-14.9)
[2018-08-10 12:59] LABS: Lactic Acid 2.2 mmol/L (0.4-2.0)
[2018-08-10 13:07] LABS: Differential Comment SCANNED
[2018-08-10] MEDS: Acetaminophen 325 MG Tablet 650 MG PO ×2 (13:13→20:31)
[2018-08-10 13:21] LABS: Bacteria 0 SEEN /hpf (None Seen); Mucous, Urine 0 SEEN /hpf (<or=2+); Squamous Epithelial Cells - UA 0 SEEN /hpf (0-5)
[2018-08-10 13:26] LABS: Color, Urine Yellow (Yellow); Glucose, Dipstick Normal (Normal); Ketone-Dipstick Negative (Negative); Leukocyte Esterase-Dipstick 25 /ul (Negative); Nitrite-Dipstick Positive (Negative); Occult Blood-Urine 10 /ul (Negative); Protein-Dipstick Negative (Negative); Specific Gravity, Urine 1.005 (1.002-1.030); Urine Bilirubin Dipstick Negative (Negative); Urine Clarity Sl. Cloudy (Clear); Urine Urobilinogen Normal (Normal)
[2018-08-10 13:36] LABS: Red Blood Cells-Urine 0-5 SEEN /hpf (0-5); White Blood Cells 0-5 SEEN /hpf (0-5)
--- NOTE | 2018-08-10 14:30 | HP.PCM_ITS ---
Problem List (1) Essential (primary) hypertension Status: Chronic (2) History of coronary artery stent placement Status: Chronic Comment: CHAD to RCA, unsuccessful angioplasty of CX with chronic total occlusion 08/04/12 (3) H/O coronary artery bypass surgery Status: Chronic Comment: CABG X 3, ACOSTA to LAD, SVG to DX branch of Anterior Descending and RCA 03/27/2004 (4) CVA (cerebral vascular accident) Status: Chronic (5) Paroxysmal A-fib Status: Chronic (6) HLD (hyperlipidemia) Status: Chronic History of Present Illness Date of Admission: 08/10/18 Chief Complaint: Fever, chills and weakness. The patient is a 78 year old M with past medical history as mentioned above presented to the emergency room because of fever, chills and weakness. His symptoms started today morning with fever, associated with rigors and chills as well as significant weakness and difficulty ambulating. He reported dry cough without sputum production. Yesterday, he was completely fine. He denies sore throat, sinus or nasal congestion. He denied abdominal pain, nausea or vomiting. He had one episode of diarrhea this morning. He reported occasional difficulty urinating, denies dysuria or hematuria. He denies flank pain or suprapubic pain. He denied skin rash or open wounds. He had a history of CAD status post CABG and stents and he has been on statins, beta-blockers and Xarelto. He had a history of paroxysmal atrial fibrillation and he has been on sotalol for rate control and Xarelto for anticoagulation and his heart rate has been stable. He had a history of hypertension which has been under controlled with sotalol and Lasix. In the emergency department, patient was febrile, tachycardic and tachypneic, blood pressure was stable. Pulse ox was 98% on 2 L. His routine blood work was unremarkable. Lactic acid was elevated at 2.2. EKG revealed sinus tachycardia with occasional PACs, no acute ischemic changes. Troponin was negative. Urinalysis revealed cloudy urine, positive for nitrite, negative for leukocyte esterase and there was no bacteria and there was only 0-5 WBCs. Chest x-ray showed left lower lobe atelectasis, no obvious infiltrate. Patient is being admitted for severe sepsis with unclear source of infection, probable or suspected acute cystitis. Past Medical History Past Medical History (Chronic Problems): Chronic Problems (Last Updated 08/10/18 @ 14:23 by Yary Virk MD) Essential (primary) hypertension (Chronic) History of coronary artery stent placement (Chronic 08/04/12) CHAD to RCA, unsuccessful angioplasty of CX with chronic total occlusion 08/04/12 H/O coronary artery bypass surgery (Chronic 03/27/04) CABG X 3, ACOSTA to LAD, SVG to DX branch of Anterior Descending and RCA 03/27/2004 CVA (cerebral vascular accident) (Chronic) Paroxysmal A-fib (Chronic) HLD (hyperlipidemia) (Chronic) Atherosclerotic heart disease of [place] coronary artery without angina pectoris (Chronic) Medical History: Medical History (Last Updated 08/10/18 @ 14:23 by Yary Virk MD) Essential (primary) hypertension (Chronic) I10 CVA (cerebral vascular accident) (Chronic) I63.9 Paroxysmal A-fib (Chronic) I48.0 HLD (hyperlipidemia) (Chronic) E78.5 Atherosclerotic heart disease of [place] coronary artery without angina pectoris (Chronic) I25.10 Cardiac arrest with ventricular fibrillation I46.9, I49.01 Syncope R55 Acute coronary thrombosis not resulting in myocardial infarction (Inactive) I24.0 HTN (hypertension) (Inactive) I10 Allergies acetaminophen [From Percocet] Allergy (Verified 06/30/18 10:37) Other lisinopril Allergy (Verified 06/30/18 10:37) Unknown oxycodone [From Percocet] Allergy (Verified 06/30/18 10:37) Other pravastatin Allergy (Verified 06/30/18 10:37) Unknown Quinolones Allergy (Verified 06/30/18 10:37) Unknown pregabalin [From Lyrica] Adverse Reaction (Verified 06/30/18 10:37) Other Home Medications: Ambulatory Orders Medication Instructions Recorded Nitroglycerin [Nitrostat] 0.4 mg SUBLINGUAL Q5M PRN #30 tab 05/23/13 Tamsulosin HCl [Flomax] 0.4 mg PO DAILY 05/23/13 Pantoprazole Sodium [Protonix] 40 mg PO DAILY 10/11/16 Sotalol HCl [Betapace (Beta 120 mg PO BID 12/08/17 Sonia)] atorvastatin 80 mg tablet 80 mg PO QHS #90 tab 06/10/18 rivaroxaban 20 mg tablet 20 mg PO DAILY #90 tab 07/17/18 Furosemide [Lasix] 20 mg PO DAILY PRN PRN 08/10/18 Vit C/E/Zn/Coppr/Lutein/Zeaxan 1 each PO BID 08/10/18 [Preservision Areds 2 Softgel] traMADol [Ultram] 50 mg PO PRN PRN 08/10/18 Surgical History: Surgical History (Last Updated 08/10/18 @ 14:23 by Yary Virk MD) History of coronary artery stent placement (Chronic) Onset Date: 08/04/12 Z95.5 CHAD to RCA, unsuccessful angioplasty of CX with chronic total occlusion 08/04/12 H/O coronary artery bypass surgery (Chronic) Onset Date: 03/27/04 Z95.1 CABG X 3, ACOSTA to LAD, SVG to DX branch of Anterior Descending and RCA 03/27/2004 History of cholecystectomy Z90.49 History of incisional hernia repair Z98.890, Z87.19 History of tonsillectomy Z90.89 Surgical History: cholecystectomy, coronary bypass surgery, tonsillectomy Psychiatric History: No pertinent psych hx Lives: Spouse/ Significant Other Smoking Status: Former smoker Alcohol: None Drugs: None - *Family History Maternal Family History: Family History (Last Reviewed 06/30/18 @ 11:02 by Barney Jasso MD) Mother No problems noted. Father Cancer Sister Cancer History Items: Cancer Review of Systems Constitutional: Reports: Anorexia, Chills, Fever, Weakness, Fatigue Eyes: Denies: Blurred vision, Double vision, Drainage, Redness HEENT: Denies: Difficulty Hearing, Ear Pain, Eye Pain, Nasal Congestion, Sore Throat Cardiovascular: Denies: Chest Pain, Chest Pressure, Chest Tightness, Edema, Heaviness, Palpitations, Syncope Respiratory: Reports: Cough. Denies: Hemoptysis, Pleuritic Pain, Shortness of Breath, Sputum production, Wheezing Gastrointestinal: Reports: Diarrhea, Vomiting. Denies: Abdominal Pain, Constipation, Nausea Genitourinary: Reports: Hesitancy. Denies: Dysuria, Frequency, Hematuria Musculoskeletal: Denies: Arm Pain, Back Pain, Foot Pain Skin: Denies: Dryness, Rash Neurological: Denies: Balance problems, Double vision, Change in Speech, Slurred speech, Headaches, Incoordination, Numbness Psychiatric: Denies: Anxiety, Depression Endocrine: Denies: Change in Body Habitus, Polydipsia VTE Information - Inpt Only VTE Present on Admission: No VTE Mechan Device Prophylaxis: None VTE Pharm Prophylaxis ordered?: No - Physical Exam General: Alert, Oriented x3, Cooperative, No apparent distress HEENT: Atraumatic, PERRLA, EOMI, Normocephalic Oral: Moist Mucosa, No Gingival or Mucosal Lesions/ Ulcerations Neck: Supple, No JVD, Negative Carotid Bruits, Trachea Midline, Thyroid Normal Size and Texture Lungs: Clear to auscultation, No rhonchi, No wheeze, No rales, Diminished Cardiovascular: Regular rate, Regular Rhythm, Normal S1, Normal S2, PMI Normal, Tachycardic Abdomen: Bowel Sounds Present, Soft, Non Tender, Non-Distended, No Hepato- splenomegaly Extremities: No clubbing, No cyanosis, No edema Skin: No rashes, No breakdown Lymphatic: No Cervical, Supraclavicular, or Inguinal Adenopathy Neurological: Cranial nerves II-XII grossly intact, Motor Exam 5/5 strength throughout Psych/Mental Status: Normal Affect, Appropriate, Alert and oriented to time, place, person, mood and affect Vital Signs Temp Pulse Resp BP Pulse Ox 100.6 F H 97 24 H 111/63 93 08/10/18 14:12 08/10/18 14:12 08/10/18 14:12 08/10/18 14:12 08/10/18 14:12 Oxygen Flow Rate (L/min) 2 Oxygen Delivery Method Nasal Cannula Weight: 193 lb 12.581 oz Body Mass Index (BMI) 33.3 Finger Stick Blood Glucose 101 Microbiology Past 72 Hours 08/10/18 11:43 Influenza Types A,B Direct FA (DANE) - Final Mucosa - Nose Laboratory Tests Past 24 Hrs 08/10/18 08/10/18 08/10/18 11:05 11:05 11:05 WBC 5.8 RBC 4.34 L Hgb 15.7 Hct 43.9 MCV 101.2 H MCH 36.2 H MCHC 35.8 RDW 11.7 RDW Differential 43.0 Plt Count 107 L MPV 11.2 Immature Gran % (Auto) 0.200 Neut % (Auto) 95.7 H Lymph % (Auto) 2.4 L [place] % (Auto) 1.0 Eos % (Auto) 0.5 Baso % (Auto) 0.2 Absolute Neuts (auto) 5.6 Absolute Lymphs (auto) 0.14 L Total Counted Not Reportable Differential Comment SCANNED PT 19.3 H INR 1.6 Sodium 137 Potassium 4.4 Chloride 102 Carbon Dioxide 25.0 Anion Gap 10 BUN 11 Creatinine 1.04 Estim Creat Clear Calc 49.02 Est GFR (MDRD) Af Amer 89 Est GFR (MDRD) Non-Af 73 BUN/Creatinine Ratio 10.6 Glucose 104 Lactic Acid Calcium 8.3 L Troponin I < 0.015 Urine Color Urine Clarity Urine pH Ur Specific [place] Urine Protein Urine Glucose (UA) Urine Ketones Urine Occult Blood Urine Nitrite Urine Bilirubin Urine Urobilinogen Ur Leukocyte Esterase Urine RBC Urine WBC Ur Squamous Epith Cells Urine Bacteria Urine Mucus 08/10/18 08/10/18 12:00 13:10 WBC RBC Hgb Hct MCV MCH MCHC RDW RDW Differential Plt Count MPV Immature Gran % (Auto) Neut % (Auto) Lymph % (Auto) [place] % (Auto) Eos % (Auto) Baso % (Auto) Absolute Neuts (auto) Absolute Lymphs (auto) Total Counted Differential Comment PT INR Sodium Potassium Chloride Carbon Dioxide Anion Gap BUN Creatinine Estim Creat Clear Calc Est GFR (MDRD) Af Amer Est GFR (MDRD) Non-Af BUN/Creatinine Ratio Glucose Lactic Acid 2.2 H Calcium Troponin I Urine Color Yellow Urine Clarity Sl. Cloudy Urine pH 7.0 Ur Specific [place] 1.005 Urine Protein Negative Urine Glucose (UA) Normal Urine Ketones Negative Urine Occult Blood 10 H Urine Nitrite Positive H Urine Bilirubin Negative Urine Urobilinogen Normal Ur Leukocyte Esterase 25 H Urine RBC 0-5 SEEN Urine WBC 0-5 SEEN Ur Squamous Epith Cells 0 SEEN Urine Bacteria 0 SEEN Urine Mucus 0 SEEN Clinical Impression(s) from Imaging Studies Chest X-Ray 08/10/18 11:27 IMPRESSION: Mild degree of increased linear markings at the left lung base suggestive of linear atelectasis. Electronically Signed: Taz Evangelista MD at 12:25 EST , Service support , Assessment/Plan This is a 78 years old male patient presented to the emergency room because of fever, chills, rigors and weakness and he was found to have severe sepsis without obvious source of infection and suspected acute cystitis. #1 severe sepsis: This is based on fever, tachycardia, leukocytosis and elevated lactic acid. Chest x-ray showed no obvious infiltrate or consolidation. Urinalysis revealed cloudy urine, positive for nitrite, 0-5 WBCs and no bacteria seen. Nasal swab for influenza a and B was negative. Plan: Admit to PCU, cardiac monitoring, blood culture, urine culture, respiratory panel for viruses, start empiric IV Zosyn, IV fluids, repeat chest x-ray tomorrow morning, repeat CBC and BMP tomorrow morning, Tylenol and Zofran as needed, PT OT evaluation and treatment. #2 suspected acute cystitis: Urine culture reviewed as above. Patient denies urinary symptoms except occasional difficulty urinating but he had a history of benign prostatic hypertrophy. Plan: Urine culture, empiric IV Zosyn, IV fluids. #3 CAD status post CABG and stents: EKG reviewed as above, stable. Continue Lipitor, sotalol and Xarelto. #4 paroxysmal atrial fibrillation: Initially, patient was tachycardic but improved with IV fluids. Plan to continue sotalol for rate control, continue Xarelto for anticoagulation #5 hypertension: Blood pressure stable, continue sotalol, hold Lasix. #6 hyperlipidemia: Continue statins. #7 history of CVA: Continue Lipitor and Xarelto. #8 DVT prophylaxis: Continue Xarelto. This note was generated with [employer] dictation software. It may contain incorrect words, spelling, and punctuation that were not noted in checking the note before signing. Code Visit Inpatient E&M: 03263 Init Hosp L3
[2018-08-10 16:24] LABS: Reflex Lactate? Y
[2018-08-10 17:14] LABS: M R Staph aureus DNA By PCR Negative (Negative); Probe Check PASS; Specimen Processing Control PASS
[2018-08-10 17:51] LABS: Lactic Acid 2.7 mmol/L (0.4-2.0)
[2018-08-10] MEDS: Tamsulosin HCl 0.4 MG Capsule PO (18:20)
[2018-08-10] MEDS: 0.9% Normal Saline 1,000 ML 125 ML IV (21:23)
[2018-08-10 22:13] LABS: Lactic Acid 4.9 mmol/L (0.4-2.0)
[2018-08-10] MEDS: Sotalol Hydrochloride 80 MG Tablet 120 MG PO (23:17)
[2018-08-10] MEDS: guaiFENesin 600 MG Tablet PO (23:17)
[2018-08-10] MEDS: Atorvastatin Calcium 80 MG Tablet PO (23:17)
[2018-08-10] MEDS: Piperacil/Tazobactam 3.375 GM/50 ML ML IV (23:26)
[2018-08-11] VITALS (19 sets, daily range): BP systolic 89–120; BP diastolic 53–67; PULSE 67–104; RESP 18–28; TEMP 36.9–38.4; O2SAT 94–99
[2018-08-11 01:40] LABS: Reflex Lactate? Y
[2018-08-11] MEDS: 0.9% Normal Saline 1,000 ML 999 ML IV (01:50)
[2018-08-11 03:36] LABS: Lactic Acid 2.8 mmol/L (0.4-2.0)
--- NOTE | 2018-08-11 04:49 | PCM.HOSP.N ---
Hospitalist Note Nurse called me concerning for low blood pressure, fever low-grade and patient lethargic. Blood pressure 89/55, in low 90s. 1 L of normal saline bolus ordered. Patient did not have urine output after admission. There is no documentation after straight cath in ED. Straight cath was ordered and patient had 225 mL urine output. Seen and examined. Air entry is diminished in lower lungs. Patient had about 4 L of normal saline bolus. Urine output 225 mL. preliminary blood culture shows gram-negative rods in both aerobic and anaerobic bottles. Trimble catheter ordered for accurate measurement of urine output. Initial lactic acid was 2.2 but repeat lactic acid came 4.9 suggestive of septic shock. Continue IV fluid normal saline, Zosyn, monitor intake and output, kidney function and electrolytes.
[2018-08-11 05:44] LABS: Absolute Lymphocyte Count 0.19 X10^3/ul (0.83-4.51); Absolute Neutrophil Count 10.2 X10^3/uL (2.0-7.7); Anion Gap 10 (5-15); BUN 14 mg/dL (7-18); BUN/Creat Ratio 12.7 RATIO (10-20); Basophil# 0.01 X10^3/uL; Basophil% 0.1 % (0-1); Calcium,Total 6.8 mg/dL (8.5-10.1); Chloride 110 mmol/L (98-107); EST Glomerular Filtration Rate 69 mL/min (>60); Est Glom Filt Rate - Afr Amer 83 mL/min (>60); Estimated Creatinine Clearance 46.34 ml/min; Glucose 104 mg/dL (74-106); Hematocrit 33.9 % (40-54); Hemoglobin 11.9 g/dl (13.0-16.5); Lymphocyte # 0.19 X10^3/ul (4.0); Lymphocyte % 1.7 % (19-41); Mean Corp Hgb Conc 35.1 g/gl (32-36); Mean Corpuscular Hgb 36.4 pg (27.0-32.0); Mean Corpuscular Volume 103.7 fL (80-94); Mean Platelet Vol. 10.7 fl (6.2-12.0); Monocyte# 0.51 X10^3/uL; Monocyte% 4.7 % (0-10); Neutrophil # 10.16 X10^3/uL (2.7-7.7); Platelet Count 83 K/mm3 (150-450); Potassium 4.2 mmol/L (3.5-5.1); RBC Distribution Width CV 11.8 % (11.6-14.6); RBC Distribution Width SD 43.8 fl (35.1-43.9); Red Blood Count 3.27 M/mm3 (4.6-6.2); Sodium Level 141 mmol/L (136-145); White Blood Count 10.9 K/mm3 (4.4-11.0)
[2018-08-11 05:48] LABS: Lactic Acid 1.9 mmol/L (0.4-2.0); Prothrombin Time (Protime)PT. 22.6 SECONDS (11.7-14.9)
[2018-08-11 05:52] LABS: Differential Indicated SCAN CRITERIA MET; POSITIVE COUNT NO; POSITIVE DIFFERENTIAL YES; POSITIVE MORPHOLOGY YES
[2018-08-11] MEDS: Piperacil/Tazobactam 3.375 GM/50 ML ML IV ×3 (05:56→21:18)
[2018-08-11 06:30] LABS: Differential Comment SCANNED
--- NOTE | 2018-08-11 08:30 | RAD_ITS ---
STUDY: X-RAY CHEST REASON FOR EXAM: Male, 78 years old. Fever TECHNIQUE: PA and lateral views of the chest. 3 images COMPARISON: 08/10/2018 FINDINGS: There are superimposed monitor leads. The lungs are clear and expanded. There is no demonstrated pleural abnormality. Sternal cerclage wires and vascular clips are present from a prior sternotomy and coronary artery bypass graft procedure (CABG). Normal mediastinum and brit[place]. Normal visualized pulmonary arteries. Normal visualized aortic arch and descending thoracic aorta. Age-appropriate thoracic spine. Normal visualized ribs, clavicles, and shoulders. There is no demonstrated abnormality of the visualized soft tissue structures of the upper abdomen. RAD/Chest PA and Lateral IMPRESSION: No pulmonary edema, congestive heart failure or confluent pneumonia. There is no significant interval change. Electronically Signed: Rosanne Noonan MD at 3:11 EST , Service support ,
[2018-08-11] MEDS: Acetaminophen 325 MG Tablet 650 MG PO ×2 (09:44→18:14)
[2018-08-11] MEDS: guaiFENesin 600 MG Tablet PO ×2 (09:44→21:18)
[2018-08-11] MEDS: Rivaroxaban 20 MG Tablet PO (09:44)
[2018-08-11] MEDS: Sotalol Hydrochloride 80 MG Tablet 120 MG PO ×2 (09:44→21:18)
[2018-08-11] MEDS: Pantoprazole Sodium 40 MG Tablet PO (09:44)
[2018-08-11] MEDS: 0.9% Normal Saline 1,000 ML 50 ML IV (09:47)
--- NOTE | 2018-08-11 10:31 | CASEMGMT ---
RN CM PURSE SEINING HAND CM to room to meet with patient for initial transition planning/care coordination assessment. RN KELSEY introduced self and role at [facility]. Pt voices understanding and consents to assessment at this time. Pt resting in bed in no distress at this time. Pt is A/O at this time and answers all questions appropriately. Care providers, pharmacy, and demographics verified/updated at this time. PCP: Aiden Specialists: Kiley Preferred Pharmacy: [facility] [place] Insurance: MCR, [employer]. Prescription Benefit: Yes Living Will/HPOA: Has both LW and HCPOA, who is his . LW found on chart. HCPOA not found. Pt states he will ask his if she can bring in paperwork. Living Arrangements: Lives in a story home with his . 9 steps to enter. States the 2nd story is just used for storage and he doesn't usually need to go up there. States he is independent with personal ADL's and his does most home mgmt tasks and financial mgmt. Transportation: Pt states he is legally blind and provides transportation. Denies transportation concerns. DME: States has the following DME: Shower chair, rails/grab bars. States just recently ordered a cane and that it should be delivered soon. States he is also getting a magnifier. Pt states no need for further DME at this time. HHC/SNF: Has never been to a SNF or used HHC. PT/OT evals pending. Pt states he is not sure if he would be agreeable to going to a SNF or having HHC, stating, Me and my are pretty independent. I'd have to talk things over with her. States he may be interested/agreeable in Out-pt therapy. Made aware PT/OT will be doing eval and he states wants to wait and see how he does and what they recommend. Pt states he would like to return home on discharge. Pt states he drinks 2 beers a day. Does not smoke. States he is legally blind. CM to follow for discharge planning/needs. Pt voices no further concerns/needs at this time. Advised pt to ask for CM if any further questions/concerns/needs arise. Voices understanding. PLAN: LUIS ANTONIO LABOY RN, CM
[2018-08-11] MEDS: Loperamide 2 MG Capsule PO ×2 (10:44→15:51)
--- NOTE | 2018-08-11 12:26 | PCM.PN.HOSP ---
Patient Problems: Active and Suspected Problems (Last Updated 08/10/18 @ 14:23 by Yary Virk MD) Severe sepsis (Acute) Bacteremia (Acute) Subjective: Feeling better overall. Was in his normal state of health until yesterday when he had nausea, vomiting and diarrhea. No vomiting here. Diarrhea improved. No abdominal pain. Vitals/I&O's: Vital Signs Temp Pulse Resp BP Pulse Ox 36.9 C 77 20 H 110/59 L 97 08/11/18 10:45 08/11/18 10:59 08/11/18 09:40 08/11/18 09:40 08/11/18 09:40 Oxygen Flow Rate (L/min) 1.5 Oxygen Delivery Method Room Air Weight: 87.9 kg Body Mass Index (BMI) 33.3 Finger Stick Blood Glucose 101 Intake and Output for Last 24 Hours 08/09/18 08/10/18 08/11/18 23:59 23:59 23:59 Intake Total 1727 / 1727 3437.4 / 3437.4 Output Total 500 / 500 Balance 1727 / 1727 2937.4 / 2937.4 General: Alert, No apparent distress HEENT: Atraumatic, Normocephalic Oral: Moist Mucosa, No Gingival or Mucosal Lesions/ Ulcerations Neck: No Nodes, Thyroid Normal Size and Texture Lungs: Clear to auscultation, Normal air movement Cardiovascular: Regular rate, Regular Rhythm, Normal S1, Normal S2, No murmurs Abdomen: Bowel Sounds Present, Soft, Non Tender, Non-Distended Extremities: No edema, No Calf Tenderness Skin: No rashes, No breakdown Psych/Mental Status: Normal Affect, Appropriate Microbiology Past 72 Hours 08/10/18 15:10 Mucosa - Nasopharyngeal Respiratory Panel (PCR) - Final 08/10/18 13:10 Urine Catheter - Catheter Urine Culture - Preliminary Gram positive organism 08/11/18 06:35 Stool C. difficile DNA Amplification - Final 08/10/18 12:05 Blood Culture (Wb) - Anticubital Right Blood Culture - Preliminary 08/10/18 12:00 Blood Culture (Wb) - Anticubital Left Blood Culture - Preliminary 08/10/18 11:43 Mucosa - Nose Influenza Types A,B Direct FA (DANE) - Final Laboratory Results 08/10/18 11:05: WBC 5.8, RBC 4.34 L, Hgb 15.7, Hct 43.9, MCV 101.2 H, MCH 36.2 H, MCHC 35.8, RDW 11.7, RDW Differential 43.0, Plt Count 107 L, MPV 11.2, Immature Gran % (Auto) 0.200, Neut % (Auto) 95.7 H, Lymph % (Auto) 2.4 L, [place] % (Auto) 1.0, Eos % (Auto) 0.5, Baso % (Auto) 0.2, Absolute Neuts (auto) 5.6, Absolute Lymphs (auto) 0.14 L, Total Counted Not Reportable, Differential Comment SCANNED 08/10/18 11:05: PT 19.3 H, INR 1.6 08/10/18 11:05: Sodium 137, Potassium 4.4, Chloride 102, Carbon Dioxide 25.0, Anion Gap 10, BUN 11, Creatinine 1.04, Estim Creat Clear Calc 49.02, Est GFR (MDRD) Af Amer 89, Est GFR (MDRD) Non-Af 73, BUN/Creatinine Ratio 10.6, Glucose 104, Calcium 8.3 L, Troponin I < 0.015 08/10/18 12:00: Lactic Acid 2.2 H 08/10/18 13:10: Urine Color Yellow, Urine Clarity Sl. Cloudy, Urine pH 7.0, Ur Specific [place] 1.005, Urine Protein Negative, Urine Glucose (UA) Normal, Urine Ketones Negative, Urine Occult Blood 10 H, Urine Nitrite Positive H, Urine Bilirubin Negative, Urine Urobilinogen Normal, Ur Leukocyte Esterase 25 H, Urine RBC 0-5 SEEN, Urine WBC 0-5 SEEN, Ur Squamous Epith Cells 0 SEEN, Urine Bacteria 0 SEEN, Urine Mucus 0 SEEN 08/10/18 15:35: MRSA (PCR) Negative 08/10/18 16:51: Lactic Acid 2.7 H 08/10/18 21:24: Lactic Acid 4.9 H* 08/11/18 02:00: Lactic Acid 2.8 H 08/11/18 05:00: Sodium 141, Potassium 4.2, Chloride 110 H, Carbon Dioxide 21.0, Anion Gap 10, BUN 14, Creatinine 1.10, Estim Creat Clear Calc 46.34, Est GFR (MDRD) Af Amer 83, Est GFR (MDRD) Non-Af 69, BUN/Creatinine Ratio 12.7, Glucose 104, Calcium 6.8 L 08/11/18 05:00: WBC 10.9, RBC 3.27 L, Hgb 11.9 L, Hct 33.9 L, MCV 103.7 H, MCH 36.4 H, MCHC 35.1, RDW 11.8, RDW Differential 43.8, Plt Count 83 L, MPV 10.7, Immature Gran % (Auto) 0.500, Neut % (Auto) 93.0 H, Lymph % (Auto) 1.7 L, [place] % (Auto) 4.7, Eos % (Auto) 0.0, Baso % (Auto) 0.1, Absolute Neuts (auto) 10.2 H, Absolute Lymphs (auto) 0.19 L, Total Counted Not Reportable, Differential Comment SCANNED 08/11/18 05:00: PT 22.6 H, INR 2.0 08/11/18 05:00: Lactic Acid 1.9 Current Medications Acetaminophen (Tylenol) 650 mg PO Q6H PRN PRN PRN Reason: Fever, headache, pain Last Admin: 08/11/18 09:44 Dose: 650 mg Atorvastatin Calcium (Lipitor) 80 mg PO QHS [facility] Last Admin: 08/10/18 23:17 Dose: 80 mg Guaifenesin (Mucinex) 600 mg PO BID [facility] Last Admin: 08/11/18 09:44 Dose: 600 mg Piperacillin Sod/Tazobactam Sod (Zosyn) 3.375 gm in 50 mls @ 12.5 mls/hr IV Q8 [facility] Last Admin: 08/11/18 05:56 Dose: 12.5 mls/hr Sodium Chloride () 1,000 mls @ 50 mls/hr IV .Q20H [facility] Last Admin: 08/11/18 09:47 Dose: 50 mls/hr Loperamide HCl (Imodium) 2 mg PO Q4H PRN PRN PRN Reason: Diarrhea Last Admin: 08/11/18 10:44 Dose: 2 mg Magnesium Hydroxide (Milk Of Magnesia) 30 ml PO DAILY PRN PRN Reason: Constipation Nutritional Formula (Lactose Free) (Ensure Enlive) 120 ml PO 4X/DAY [facility] Last Admin: 08/11/18 09:43 Dose: 120 ml Ondansetron HCl (Zofran) 4 mg IV Q8H PRN PRN PRN Reason: NAUSEA/VOMITING Pantoprazole Sodium (Protonix) 40 mg PO DAILY [facility] Last Admin: 08/11/18 09:44 Dose: 40 mg Rivaroxaban (Xarelto) 20 mg PO DAILY@0800 [facility] Last Admin: 08/11/18 09:44 Dose: 20 mg Sodium Chloride () 5 - 15 ml IV UD PRN PRN Reason: SALINE FLUSH Sotalol HCl (Betapace (G)) 120 mg PO BID [facility] Last Admin: 08/11/18 09:44 Dose: 120 mg Tamsulosin HCl (Flomax) 0.4 mg PO DAILY@1730 [facility] Last Admin: 08/10/18 18:20 Dose: 0.4 mg Medical Necessity - Tobacco Use Smoking Status: Former smoker Assessment/Plan All Active Problems (Last Updated 08/10/18 @ 14:23 by Yary Virk MD) Severe sepsis (Acute) Bacteremia (Acute) 1. severe sepsis POA etiology unclear: colitis v gastroenteritis v other. lactic acidosis resolved 2. bacteremia 2 BCx gram stains on the + for GNR UA negative (UCx showing GP organism, which is likely a contaminant and not an actual infection)--Cystitis ruled out. repeat blood cultures done and pending. Will need to verify sterility prior to discharge Source unknown, but favoring a colitis or translocation from a gastroenteritis Check CT abd/pelvis 3. pAfib rate-controlled continue sotalol and Xarelto 4. CAD: stable continue HIS 5. DVT proph: already on NOAC Discussed with patient's and family friend. Code Visit Inpatient E&M: 73643 Subs Hosp L2
--- NOTE | 2018-08-11 12:33 | PN_ITS ---
Patient Problems: Active and Suspected Problems (Last Updated 08/10/18 @ 14:23 by Yary Virk MD) Severe sepsis (Acute) Bacteremia (Acute) Subjective: Feeling better overall. Was in his normal state of health until yesterday when he had nausea, vomiting and diarrhea. No vomiting here. Diarrhea improved. No abdominal pain. Vitals/I&O's: Vital Signs Temp Pulse Resp BP Pulse Ox 36.9 C 77 20 H 110/59 L 97 08/11/18 10:45 08/11/18 10:59 08/11/18 09:40 08/11/18 09:40 08/11/18 09:40 Oxygen Flow Rate (L/min) 1.5 Oxygen Delivery Method Room Air Weight: 87.9 kg Body Mass Index (BMI) 33.3 Finger Stick Blood Glucose 101 Intake and Output for Last 24 Hours 08/09/18 08/10/18 08/11/18 23:59 23:59 23:59 Intake Total 1727 / 1727 3437.4 / 3437.4 Output Total 500 / 500 Balance 1727 / 1727 2937.4 / 2937.4 General: Alert, No apparent distress HEENT: Atraumatic, Normocephalic Oral: Moist Mucosa, No Gingival or Mucosal Lesions/ Ulcerations Neck: No Nodes, Thyroid Normal Size and Texture Lungs: Clear to auscultation, Normal air movement Cardiovascular: Regular rate, Regular Rhythm, Normal S1, Normal S2, No murmurs Abdomen: Bowel Sounds Present, Soft, Non Tender, Non-Distended Extremities: No edema, No Calf Tenderness Skin: No rashes, No breakdown Psych/Mental Status: Normal Affect, Appropriate Microbiology Past 72 Hours 08/10/18 15:10 Mucosa - Nasopharyngeal Respiratory Panel (PCR) - Final 08/10/18 13:10 Urine Catheter - Catheter Urine Culture - Preliminary Gram positive organism 08/11/18 06:35 Stool C. difficile DNA Amplification - Final 08/10/18 12:05 Blood Culture (Wb) - Anticubital Right Blood Culture - Preliminary 08/10/18 12:00 Blood Culture (Wb) - Anticubital Left Blood Culture - Preliminary 08/10/18 11:43 Mucosa - Nose Influenza Types A,B Direct FA ([facility]) - Final Laboratory Results 08/10/18 11:05: WBC 5.8, RBC 4.34 L, Hgb 15.7, Hct 43.9, MCV 101.2 H, MCH 36.2 H , MCHC 35.8, RDW 11.7, RDW Differential 43.0, Plt Count 107 L, MPV 11.2, Immature Gran % (Auto) 0.200, Neut % (Auto) 95.7 H, Lymph % (Auto) 2.4 L, [place] % (Auto) 1.0, Eos % (Auto) 0.5, Baso % (Auto) 0.2, Absolute Neuts (auto) 5.6, Absolute Lymphs (auto) 0.14 L, Total Counted Not Reportable, Differential Comment SCANNED 08/10/18 11:05: PT 19.3 H, INR 1.6 08/10/18 11:05: Sodium 137, Potassium 4.4, Chloride 102, Carbon Dioxide 25.0, Anion Gap 10, BUN 11, Creatinine 1.04, Estim Creat Clear Calc 49.02, Est GFR (MDRD) Af Amer 89, Est GFR (MDRD) Non-Af 73, BUN/Creatinine Ratio 10.6, Glucose 104, Calcium 8.3 L, Troponin I < 0.015 08/10/18 12:00: Lactic Acid 2.2 H 08/10/18 13:10: Urine Color Yellow, Urine Clarity Sl. Cloudy, Urine pH 7.0, Ur Specific [place] 1.005, Urine Protein Negative, Urine Glucose (UA) Normal, Urine Ketones Negative, Urine Occult Blood 10 H, Urine Nitrite Positive H, Urine Bilirubin Negative, Urine Urobilinogen Normal, Ur Leukocyte Esterase 25 H, Urine RBC 0-5 SEEN, Urine WBC 0-5 SEEN, Ur Squamous Epith Cells 0 SEEN, Urine Bacteria 0 SEEN, Urine Mucus 0 SEEN 08/10/18 15:35: MRSA (PCR) Negative 08/10/18 16:51: Lactic Acid 2.7 H 08/10/18 21:24: Lactic Acid 4.9 H* 08/11/18 02:00: Lactic Acid 2.8 H 08/11/18 05:00: Sodium 141, Potassium 4.2, Chloride 110 H, Carbon Dioxide 21.0, Anion Gap 10, BUN 14, Creatinine 1.10, Estim Creat Clear Calc 46.34, Est GFR (MDRD) Af Amer 83, Est GFR (MDRD) Non-Af 69, BUN/Creatinine Ratio 12.7, Glucose 104, Calcium 6.8 L 08/11/18 05:00: WBC 10.9, RBC 3.27 L, Hgb 11.9 L, Hct 33.9 L, MCV 103.7 H, MCH 36.4 H, MCHC 35.1, RDW 11.8, RDW Differential 43.8, Plt Count 83 L, MPV 10.7, Immature Gran % (Auto) 0.500, Neut % (Auto) 93.0 H, Lymph % (Auto) 1.7 L, [place] % (Auto) 4.7, Eos % (Auto) 0.0, Baso % (Auto) 0.1, Absolute Neuts (auto) 10.2 H, Absolute Lymphs (auto) 0.19 L, Total Counted Not Reportable, Differential Comment SCANNED 08/11/18 05:00: PT 22.6 H, INR 2.0 08/11/18 05:00: Lactic Acid 1.9 Current Medications Acetaminophen (Tylenol) 650 mg PO Q6H PRN PRN PRN Reason: Fever, headache, pain Last Admin: 08/11/18 09:44 Dose: 650 mg Atorvastatin Calcium (Lipitor) 80 mg PO QHS [facility] Last Admin: 08/10/18 23:17 Dose: 80 mg Guaifenesin (Mucinex) 600 mg PO BID [facility] Last Admin: 08/11/18 09:44 Dose: 600 mg Piperacillin Sod/Tazobactam Sod (Zosyn) 3.375 gm in 50 mls @ 12.5 mls/hr IV Q8 [facility] Last Admin: 08/11/18 05:56 Dose: 12.5 mls/hr Sodium Chloride () 1,000 mls @ 50 mls/hr IV .Q20H [facility] Last Admin: 08/11/18 09:47 Dose: 50 mls/hr Loperamide HCl (Imodium) 2 mg PO Q4H PRN PRN PRN Reason: Diarrhea Last Admin: 08/11/18 10:44 Dose: 2 mg Magnesium Hydroxide (Milk Of Magnesia) 30 ml PO DAILY PRN PRN Reason: Constipation Nutritional Formula (Lactose Free) (Ensure Enlive) 120 ml PO 4X/DAY [facility] Last Admin: 08/11/18 09:43 Dose: 120 ml Ondansetron HCl (Zofran) 4 mg IV Q8H PRN PRN PRN Reason: NAUSEA/VOMITING Pantoprazole Sodium (Protonix) 40 mg PO DAILY [facility] Last Admin: 08/11/18 09:44 Dose: 40 mg Rivaroxaban (Xarelto) 20 mg PO DAILY@0800 [facility] Last Admin: 08/11/18 09:44 Dose: 20 mg Sodium Chloride () 5 - 15 ml IV UD PRN PRN Reason: SALINE FLUSH Sotalol HCl (Betapace (G)) 120 mg PO BID [facility] Last Admin: 08/11/18 09:44 Dose: 120 mg Tamsulosin HCl (Flomax) 0.4 mg PO DAILY@1730 [facility] Last Admin: 08/10/18 18:20 Dose: 0.4 mg Medical Necessity - Tobacco Use Smoking Status: Former smoker Assessment/Plan All Active Problems (Last Updated 08/10/18 @ 14:23 by Yary Virk MD) Severe sepsis (Acute) Bacteremia (Acute) 1. severe sepsis POA etiology unclear: colitis v gastroenteritis v other. lactic acidosis resolved 2. bacteremia 2 BCx gram stains on the + for GNR UA negative (UCx showing GP organism, which is likely a contaminant and not an actual infection)--Cystitis ruled out. repeat blood cultures done and pending. Will need to verify sterility prior to discharge Source unknown, but favoring a colitis or translocation from a gastroenteritis Check CT abd/pelvis 3. pAfib rate-controlled continue sotalol and Xarelto 4. CAD: stable continue HIS 5. DVT proph: already on NOAC Discussed with patient's and family friend. Code Visit Inpatient E&M: 15460 Subs Hosp L2
--- NOTE | 2018-08-11 12:34 | CT_ITS ---
STUDY: CT ABDOMEN AND PELVIS WITH CONTRAST REASON FOR EXAM: Male, 78 years old. Vomiting. Diarrhea. RADIATION DOSAGE (If Supplied By Facility): CTDIvol = ( 14.24 ) mGy, DLP = ( 976.00 ) mGycm TECHNIQUE: Transaxial images were obtained from the dome of the diaphragm to the symphysis pubis with oral contrast. 100 ml of Isovue 300 contrast was administered. Sagittal and coronal images were reconstructed. Individualized dose optimization techniques were used for this CT. COMPARISON: 05/23/2014 FINDINGS: There are trace bilateral pleural effusions with overlying atelectasis. The visualized portions of the heart and pericardium are within normal limits. There are coronary artery calcifications noted. The patient is status post cholecystectomy. The liver is within normal limits. There are no suspicious hepatic lesions. The spleen is normal in size. The pancreas is within normal limits. The adrenal glands are within normal limits. There are no renal or ureteral stones. There is no hydronephrosis. There are no focal renal lesions. There is a Trimble catheter in place. There is urinary bladder wall thickening with adjacent stranding. This is consistent with cystitis. Normal visualized stomach. There is no bowel obstruction. There is bowel thickening in the sigmoid colon (for example image 80 series 1002). This likely represents focal colitis. However, follow-up is recommended to exclude an underlying mass. The appendix is visualized and appears normal. The aorta is normal in caliber. There is a small amount of free fluid. There is no free air, fluid collection or lymphadenopathy. There are no destructive osseous lesions. CT/Abdomen/Pelvis WITH Contrast IMPRESSION: Bowel wall thickening in the sigmoid colon which likely represents focal colitis. However, follow-up is recommended to exclude an underlying mass. Urinary bladder wall thickening with adjacent stranding. This is consistent with cystitis. Small amount of free fluid. Trace bilateral pleural effusions with overlying atelectasis. Coronary artery disease. Electronically Signed: Ezra Soriano, at 23:58 EST Tel , Service support ,
[2018-08-11] MEDS: 0.9% Normal Saline 1,000 ML 100 ML IV (13:33)
[2018-08-11] MEDS: 0.9% NaCl Peripheral Flush Adult/Peds IV ×2 (15:51→18:16)
[2018-08-11] MEDS: Albuterol 2.5 MG/3 ML VIAL.NEB. INHALATION ×2 (16:34→19:38)
[2018-08-11 17:51] LABS: Allen Test POS; Base Excess -8 mmol/L (-2 to +2); Bicarbonate 17.7 mmol/L (22-26); Blood Gas Specimen Type ART; O2 Delivery Device Nasal Can; PO2 88 mmHG (75-100); SITE R Brachial; SO2 97 % (95-99); Time Given 1745; Total Carbon Dioxide 19 mmol/L; pCO2 31.8 mmHg (35-45); pH 7.35 (7.35-7.45)
[2018-08-11] MEDS: Tamsulosin HCl 0.4 MG Capsule PO (18:14)
[2018-08-11 18:27] LABS: Lactic Acid 1.7 mmol/L (0.4-2.0)
[2018-08-11] MEDS: Atorvastatin Calcium 80 MG Tablet PO (21:18)
[2018-08-12] VITALS (15 sets, daily range): BP systolic 101–135; BP diastolic 52–73; PULSE 66–74; RESP 15–24; TEMP 36.9–37.2; O2SAT 93–96
[2018-08-12] MEDS: Piperacil/Tazobactam 3.375 GM/50 ML ML IV ×3 (05:16→21:46)
[2018-08-12 07:22] LABS: Absolute Lymphocyte Count 0.42 X10^3/ul (0.83-4.51); Absolute Neutrophil Count 5.3 X10^3/uL (2.0-7.7); Basophil# 0.01 X10^3/uL; Basophil% 0.2 % (0-1); Eosinophil# 0.06 X10^3/uL; Eosinophils% 0.9 % (0-5); Hematocrit 34.2 % (40-54); Hemoglobin 11.6 g/dl (13.0-16.5); Lymphocyte # 0.42 X10^3/ul (4.0); Lymphocyte % 6.5 % (19-41); Mean Corp Hgb Conc 33.9 g/gl (32-36); Mean Corpuscular Hgb 34.9 pg (27.0-32.0); Mean Platelet Vol. 10.7 fl (6.2-12.0); Monocyte% 10.8 % (0-10); Neutrophil # 5.29 X10^3/uL (2.7-7.7); Neutrophil % 81.4 % (47-70); Platelet Count 63 K/mm3 (150-450); RBC Distribution Width CV 12.4 % (11.6-14.6); RBC Distribution Width SD 46.6 fl (35.1-43.9); Red Blood Count 3.32 M/mm3 (4.6-6.2); White Blood Count 6.5 K/mm3 (4.4-11.0)
[2018-08-12 07:23] LABS: Differential Indicated SCAN CRITERIA MET; POSITIVE COUNT NO; POSITIVE DIFFERENTIAL YES; POSITIVE MORPHOLOGY NO
[2018-08-12] MEDS: Albuterol 2.5 MG/3 ML VIAL.NEB. INHALATION ×4 (07:25→19:39)
[2018-08-12 07:52] LABS: Anion Gap 9 (5-15); BUN 15 mg/dL (7-18); BUN/Creat Ratio 15.3 RATIO (10-20); Calcium,Total 7.3 mg/dL (8.5-10.1); Chloride 109 mmol/L (98-107); Creatinine, Serum 0.98 mg/dL (0.70-1.30); EST Glomerular Filtration Rate 78 mL/min (>60); Est Glom Filt Rate - Afr Amer 95 mL/min (>60); Estimated Creatinine Clearance 52.02 ml/min; Glucose 113 mg/dL (74-106); Potassium 3.8 mmol/L (3.5-5.1); Sodium Level 138 mmol/L (136-145)
[2018-08-12 08:01] LABS: Differential Comment SCANNED; Hypochromasia RARE; Macrocytosis 1+; Platelet Estimate MKD DEC (ADEQ)
[2018-08-12] MEDS: Pantoprazole Sodium 40 MG Tablet PO (10:02)
[2018-08-12] MEDS: Sotalol Hydrochloride 80 MG Tablet 120 MG PO ×2 (10:02→21:46)
[2018-08-12] MEDS: Rivaroxaban 20 MG Tablet PO (10:02)
[2018-08-12] MEDS: guaiFENesin 600 MG Tablet PO ×2 (10:04→21:46)
--- NOTE | 2018-08-12 11:49 | PCM.PN.HOSP ---
Patient Problems: Active and Suspected Problems (Last Updated 08/10/18 @ 14:23 by Yary Virk MD) Colitis (Acute) Bacteremia (Acute) Severe sepsis (Acute) Subjective: Feels better. Was short of breath last night, but improved today. States that aerosols helped. No further diarrhea. Vitals/I&O's: Vital Signs Temp Pulse Resp BP Pulse Ox 37.0 C 66 16 126/66 H 96 08/12/18 09:55 08/12/18 10:56 08/12/18 10:56 08/12/18 09:55 08/12/18 09:55 Oxygen Flow Rate (L/min) 2 Oxygen Delivery Method Room Air Weight: 87.9 kg Body Mass Index (BMI) 33.3 Finger Stick Blood Glucose 101 Intake and Output for Last 24 Hours 08/10/18 08/11/18 08/12/18 23:59 23:59 23:59 Intake Total 1727 / 1727 5872.6 / 5872.6 193.2 / 193.2 Output Total 1100 / 1100 250 / 250 Balance 1727 / 1727 4772.6 / 4772.6 -56.8 / -56.8 General: Alert, No apparent distress HEENT: Atraumatic, Normocephalic Oral: Moist Mucosa, No Gingival or Mucosal Lesions/ Ulcerations Neck: No Nodes, Thyroid Normal Size and Texture Lungs: Clear to auscultation, Normal air movement, No rhonchi, No wheeze Cardiovascular: Regular rate, Regular Rhythm, Normal S1, Normal S2, No murmurs Abdomen: Bowel Sounds Present, Soft, Non Tender, Non-Distended, No Hepato-splenomegaly Extremities: No edema, No Calf Tenderness Skin: No rashes, No breakdown Psych/Mental Status: Normal Affect, Appropriate Microbiology Past 72 Hours 08/10/18 12:00 Blood Culture (Wb) - Anticubital Left Blood Culture - Preliminary GNR non optical scientist GNR lactose optical scientist 08/10/18 12:05 Blood Culture (Wb) - Anticubital Right Blood Culture - Preliminary GNR lactose optical scientist 08/10/18 13:10 Urine Catheter - Catheter Urine Culture - Final Staphylococcus epidermidis 08/10/18 15:10 Mucosa - Nasopharyngeal Respiratory Panel (PCR) - Final 08/11/18 06:35 Stool C. difficile DNA Amplification - Final 08/10/18 11:43 Mucosa - Nose Influenza Types A,B Direct FA ([facility]) - Final Laboratory Results 08/11/18 17:34: Lactic Acid 1.7 08/11/18 17:44: Specimen Type ART, Sample Site R Brachial, pH 7.35, Bicarbonate Actual 17.7 L, POC Total CO2 19, Base Excess -8 L, O2 Saturation 97, ABG pCO2 31.8 L, ABG pO2 88, Mayo Test POS, O2 Delivery Device Nasal Can, Liter Flow 2.0, Blood Gas Notified Whom RN, Blood Gas Notified Time 5048 08/12/18 06:56: WBC 6.5, RBC 3.32 L, Hgb 11.6 L, Hct 34.2 L, MCV 103.0 H, MCH 34.9 H, MCHC 33.9, RDW 12.4, RDW Differential 46.6 H, Plt Count 63 L, MPV 10.7, Immature Gran % (Auto) 0.200, Neut % (Auto) 81.4 H, Lymph % (Auto) 6.5 L, [place] % (Auto) 10.8 H, Eos % (Auto) 0.9, Baso % (Auto) 0.2, Absolute Neuts (auto) 5.3, Absolute Lymphs (auto) 0.42 L, Total Counted Not Reportable, Differential Comment SCANNED, Platelet Estimate MKD DEC, Hypochromasia RARE, Macrocytosis 1+ 08/12/18 06:56: Sodium 138, Potassium 3.8, Chloride 109 H, Carbon Dioxide 20.0 L, Anion Gap 9, BUN 15, Creatinine 0.98, Estim Creat Clear Calc 52.02, Est GFR (MDRD) Af Amer 95, Est GFR (MDRD) Non-Af 78, BUN/Creatinine Ratio 15.3, Glucose 113 H, Calcium 7.3 L Current Medications Acetaminophen (Tylenol) 650 mg PO Q6H PRN PRN PRN Reason: Fever, headache, pain Last Admin: 08/11/18 18:14 Dose: 650 mg Albuterol Sulfate (Ventolin Aerosols) 2.5 mg INHALATION Q2H PRN PRN PRN Reason: SOB &/OR WHEEZING Last Admin: 08/12/18 10:56 Dose: 2.5 mg Atorvastatin Calcium (Lipitor) 80 mg PO QHS [facility] Last Admin: 08/11/18 21:18 Dose: 80 mg Guaifenesin (Mucinex) 600 mg PO BID [facility] Last Admin: 08/12/18 10:04 Dose: 600 mg Piperacillin Sod/Tazobactam Sod (Zosyn) 3.375 gm in 50 mls @ 12.5 mls/hr IV Q8 [facility] Last Admin: 08/12/18 05:16 Dose: 12.5 mls/hr Loperamide HCl (Imodium) 2 mg PO Q4H PRN PRN PRN Reason: Diarrhea Last Admin: 08/11/18 15:51 Dose: 2 mg Magnesium Hydroxide (Milk Of Magnesia) 30 ml PO DAILY PRN PRN Reason: Constipation Nutritional Formula (Lactose Free) (Ensure Enlive) 120 ml PO 4X/DAY [facility] Last Admin: 08/12/18 10:09 Dose: 120 ml Ondansetron HCl (Zofran) 4 mg IV Q8H PRN PRN PRN Reason: NAUSEA/VOMITING Pantoprazole Sodium (Protonix) 40 mg PO DAILY [facility] Last Admin: 08/12/18 10:02 Dose: 40 mg Rivaroxaban (Xarelto) 20 mg PO DAILY@0800 [facility] Last Admin: 08/12/18 10:02 Dose: 20 mg Sodium Chloride () 5 - 15 ml IV UD PRN PRN Reason: SALINE FLUSH Last Admin: 08/11/18 18:16 Dose: 10 ml Sotalol HCl (Betapace (G)) 120 mg PO BID [facility] Last Admin: 08/12/18 10:02 Dose: 120 mg Tamsulosin HCl (Flomax) 0.4 mg PO DAILY@1730 [facility] Last Admin: 08/11/18 18:14 Dose: 0.4 mg Medical Necessity - Tobacco Use Smoking Status: Former smoker Assessment/Plan All Active Problems (Last Updated 08/10/18 @ 14:23 by Yary Virk MD) Colitis (Acute) Bacteremia (Acute) Severe sepsis (Acute) 1. severe sepsis POA resolved etiology unclear: colitis and bacteremia lactic acidosis resolved 2. bacteremia 2 BCx gram stains on the 24 + for GNR UA negative (UCx showing GP organism, which is likely a contaminant and not an actual infection)--Cystitis ruled out. repeat blood cultures done and pending. Will need to verify sterility prior to discharge 2/2 Colitis. Doubt UTI as UA was negative. + UCx likely a contaminant and not a true infection. 3. Colitis Bacteria v viral Irregardless, he requires antibiotics due to the bacteremia 4. pAfib rate-controlled continue sotalol and Xarelto 5. CAD: stable continue HIS 6. DVT proph: already on NOAC Greater than 35 minutes, of which greater than 50% of the time was [id number] with patient and family discussing colitis, bacteremia, CT findings and overall plan. Code Visit Inpatient E&M: 86544 Subs Hosp L3
--- NOTE | 2018-08-12 11:55 | PN_ITS ---
Patient Problems: Active and Suspected Problems (Last Updated 08/10/18 @ 14:23 by Yary Virk MD) Colitis (Acute) Bacteremia (Acute) Severe sepsis (Acute) Subjective: Feels better. Was short of breath last night, but improved today. States that aerosols helped. No further diarrhea. Vitals/I&O's: Vital Signs Temp Pulse Resp BP Pulse Ox 37.0 C 66 16 126/66 H 96 08/12/18 09:55 08/12/18 10:56 08/12/18 10:56 08/12/18 09:55 08/12/18 09:55 Oxygen Flow Rate (L/min) 2 Oxygen Delivery Method Room Air Weight: 87.9 kg Body Mass Index (BMI) 33.3 Finger Stick Blood Glucose 101 Intake and Output for Last 24 Hours 08/10/18 08/11/18 08/12/18 23:59 23:59 23:59 Intake Total 1727 / 1727 5872.6 / 5872.6 193.2 / 193.2 Output Total 1100 / 1100 250 / 250 Balance 1727 / 1727 4772.6 / 4772.6 -56.8 / -56.8 General: Alert, No apparent distress HEENT: Atraumatic, Normocephalic Oral: Moist Mucosa, No Gingival or Mucosal Lesions/ Ulcerations Neck: No Nodes, Thyroid Normal Size and Texture Lungs: Clear to auscultation, Normal air movement, No rhonchi, No wheeze Cardiovascular: Regular rate, Regular Rhythm, Normal S1, Normal S2, No murmurs Abdomen: Bowel Sounds Present, Soft, Non Tender, Non-Distended, No Hepato- splenomegaly Extremities: No edema, No Calf Tenderness Skin: No rashes, No breakdown Psych/Mental Status: Normal Affect, Appropriate Microbiology Past 72 Hours 08/10/18 12:00 Blood Culture (Wb) - Anticubital Left Blood Culture - Preliminary GNR non medical tech GNR lactose medical tech 08/10/18 12:05 Blood Culture (Wb) - Anticubital Right Blood Culture - Preliminary GNR lactose medical tech 08/10/18 13:10 Urine Catheter - Catheter Urine Culture - Final Staphylococcus epidermidis 08/10/18 15:10 Mucosa - Nasopharyngeal Respiratory Panel (PCR) - Final 08/11/18 06:35 Stool C. difficile DNA Amplification - Final 08/10/18 11:43 Mucosa - Nose Influenza Types A,B Direct FA ([facility]) - Final Laboratory Results 08/11/18 17:34: Lactic Acid 1.7 08/11/18 17:44: Specimen Type ART, Sample Site R Brachial, pH 7.35, Bicarbonate Actual 17.7 L, POC Total CO2 19, Base Excess -8 L, O2 Saturation 97, ABG pCO2 31.8 L, ABG pO2 88, Mayo Test POS, O2 Delivery Device Nasal Can, Liter Flow 2.0, Blood Gas Notified Whom RN, Blood Gas Notified Time 2137 08/12/18 06:56: WBC 6.5, RBC 3.32 L, Hgb 11.6 L, Hct 34.2 L, MCV 103.0 H, MCH 34.9 H, MCHC 33.9, RDW 12.4, RDW Differential 46.6 H, Plt Count 63 L, MPV 10.7, Immature Gran % (Auto) 0.200, Neut % (Auto) 81.4 H, Lymph % (Auto) 6.5 L, [place] % (Auto) 10.8 H, Eos % (Auto) 0.9, Baso % (Auto) 0.2, Absolute Neuts (auto) 5.3, Absolute Lymphs (auto) 0.42 L, Total Counted Not Reportable, Differential Comment SCANNED, Platelet Estimate MKD DEC, Hypochromasia RARE, Macrocytosis 1+ 08/12/18 06:56: Sodium 138, Potassium 3.8, Chloride 109 H, Carbon Dioxide 20.0 L , Anion Gap 9, BUN 15, Creatinine 0.98, Estim Creat Clear Calc 52.02, Est GFR (MDRD) Af Amer 95, Est GFR (MDRD) Non-Af 78, BUN/Creatinine Ratio 15.3, Glucose 113 H, Calcium 7.3 L Current Medications Acetaminophen (Tylenol) 650 mg PO Q6H PRN PRN PRN Reason: Fever, headache, pain Last Admin: 08/11/18 18:14 Dose: 650 mg Albuterol Sulfate (Ventolin Aerosols) 2.5 mg INHALATION Q2H PRN PRN PRN Reason: SOB &/OR WHEEZING Last Admin: 08/12/18 10:56 Dose: 2.5 mg Atorvastatin Calcium (Lipitor) 80 mg PO QHS [facility] Last Admin: 08/11/18 21:18 Dose: 80 mg Guaifenesin (Mucinex) 600 mg PO BID [facility] Last Admin: 08/12/18 10:04 Dose: 600 mg Piperacillin Sod/Tazobactam Sod (Zosyn) 3.375 gm in 50 mls @ 12.5 mls/hr IV Q8 [facility] Last Admin: 08/12/18 05:16 Dose: 12.5 mls/hr Loperamide HCl (Imodium) 2 mg PO Q4H PRN PRN PRN Reason: Diarrhea Last Admin: 08/11/18 15:51 Dose: 2 mg Magnesium Hydroxide (Milk Of Magnesia) 30 ml PO DAILY PRN PRN Reason: Constipation Nutritional Formula (Lactose Free) (Ensure Enlive) 120 ml PO 4X/DAY [facility] Last Admin: 08/12/18 10:09 Dose: 120 ml Ondansetron HCl (Zofran) 4 mg IV Q8H PRN PRN PRN Reason: NAUSEA/VOMITING Pantoprazole Sodium (Protonix) 40 mg PO DAILY [facility] Last Admin: 08/12/18 10:02 Dose: 40 mg Rivaroxaban (Xarelto) 20 mg PO DAILY@0800 [facility] Last Admin: 08/12/18 10:02 Dose: 20 mg Sodium Chloride () 5 - 15 ml IV UD PRN PRN Reason: SALINE FLUSH Last Admin: 08/11/18 18:16 Dose: 10 ml Sotalol HCl (Betapace (G)) 120 mg PO BID [facility] Last Admin: 08/12/18 10:02 Dose: 120 mg Tamsulosin HCl (Flomax) 0.4 mg PO DAILY@1730 [facility] Last Admin: 08/11/18 18:14 Dose: 0.4 mg Medical Necessity - Tobacco Use Smoking Status: Former smoker Assessment/Plan All Active Problems (Last Updated 08/10/18 @ 14:23 by Yary Virk MD) Colitis (Acute) Bacteremia (Acute) Severe sepsis (Acute) 1. severe sepsis POA resolved etiology unclear: colitis and bacteremia lactic acidosis resolved 2. bacteremia 2 BCx gram stains on the 24 + for GNR UA negative (UCx showing GP organism, which is likely a contaminant and not an actual infection)--Cystitis ruled out. repeat blood cultures done and pending. Will need to verify sterility prior to discharge 2/2 Colitis. Doubt UTI as UA was negative. + UCx likely a contaminant and not a true infection. 3. Colitis Bacteria v viral Irregardless, he requires antibiotics due to the bacteremia 4. pAfib rate-controlled continue sotalol and Xarelto 5. CAD: stable continue HIS 6. DVT proph: already on NOAC Greater than 35 minutes, of which greater than 50% of the time was [id number] with patient and family discussing colitis, bacteremia, CT findings and overall plan. Code Visit Inpatient E&M: [id number] Subs Hosp L3
--- NOTE | 2018-08-12 14:18 | NURSING ---
Student nurse charting reviewed.
[2018-08-12] MEDS: Tamsulosin HCl 0.4 MG Capsule PO (17:07)
[2018-08-12] MEDS: Atorvastatin Calcium 80 MG Tablet PO (21:46)
[2018-08-12] MEDS: Zolpidem Tartrate 5 MG Tablet PO (21:47)
[2018-08-13] VITALS (15 sets, daily range): BP systolic 120–138; BP diastolic 67–91; PULSE 62–71; RESP 15–24; TEMP 36.3–37.1; O2SAT 92–97
[2018-08-13] MEDS: Albuterol 2.5 MG/3 ML VIAL.NEB. INHALATION (05:15)
[2018-08-13 05:21] LABS: Absolute Lymphocyte Count 0.56 X10^3/ul (0.83-4.51); Basophil# 0.01 X10^3/uL; Basophil% 0.2 % (0-1); Eosinophil# 0.11 X10^3/uL; Eosinophils% 2.1 % (0-5); Hematocrit 32.1 % (40-54); Hemoglobin 11.5 g/dl (13.0-16.5); Lymphocyte # 0.56 X10^3/ul (4.0); Lymphocyte % 10.6 % (19-41); Mean Corp Hgb Conc 35.8 g/gl (32-36); Mean Corpuscular Hgb 36.3 pg (27.0-32.0); Mean Corpuscular Volume 101.3 fL (80-94); Mean Platelet Vol. 10.9 fl (6.2-12.0); Monocyte% 11.3 % (0-10); Neutrophil % 75.6 % (47-70); Platelet Count 70 K/mm3 (150-450); RBC Distribution Width CV 11.5 % (11.6-14.6); RBC Distribution Width SD 41.9 fl (35.1-43.9); Red Blood Count 3.17 M/mm3 (4.6-6.2); White Blood Count 5.3 K/mm3 (4.4-11.0)
[2018-08-13 05:30] LABS: Anion Gap 8 (5-15); BUN 11 mg/dL (7-18); BUN/Creat Ratio 12.6 RATIO (10-20); Calcium,Total 7.5 mg/dL (8.5-10.1); Chloride 105 mmol/L (98-107); Creatinine, Serum 0.87 mg/dL (0.70-1.30); EST Glomerular Filtration Rate 90 mL/min (>60); Est Glom Filt Rate - Afr Amer 109 mL/min (>60); Glucose 100 mg/dL (74-106); Potassium 3.7 mmol/L (3.5-5.1); Sodium Level 138 mmol/L (136-145)
[2018-08-13 05:57] LABS: Differential Indicated SCAN CRITERIA MET; POSITIVE COUNT NO; POSITIVE DIFFERENTIAL YES; POSITIVE MORPHOLOGY NO
[2018-08-13] MEDS: Piperacil/Tazobactam 3.375 GM/50 ML ML IV ×3 (06:01→21:35)
[2018-08-13] MEDS: Rivaroxaban 20 MG Tablet PO (08:25)
[2018-08-13] MEDS: Sotalol Hydrochloride 80 MG Tablet 120 MG PO ×2 (10:50→21:35)
[2018-08-13] MEDS: guaiFENesin 600 MG Tablet PO ×2 (10:51→21:35)
[2018-08-13] MEDS: Pantoprazole Sodium 40 MG Tablet PO (10:51)
--- NOTE | 2018-08-13 13:32 | PCM.PN.HOSP ---
Patient Problems: Active and Suspected Problems (Last Updated 08/10/18 @ 14:23 by Yary Virk MD) Colitis (Acute) Bacteremia (Acute) Severe sepsis (Acute) Subjective: Feels good. Wants to go home. Vitals/I&O's: Vital Signs Temp Pulse Resp BP Pulse Ox 36.3 C L 68 17 128/67 H 95 08/13/18 08:22 08/13/18 11:28 08/13/18 08:22 08/13/18 08:22 08/13/18 08:22 Oxygen Flow Rate (L/min) 2 Oxygen Delivery Method Room Air Weight: 87.9 kg Body Mass Index (BMI) 33.3 Finger Stick Blood Glucose 101 Intake and Output for Last 24 Hours 08/11/18 08/12/18 08/13/18 23:59 23:59 23:59 Intake Total 5872.6 / 5872.6 1551.2 / 1551.2 725 / 725 Output Total 1100 / 1100 900 / 900 1000 / 1000 Balance 4772.6 / 4772.6 651.2 / 651.2 -275 / -275 General: Alert, No apparent distress HEENT: Atraumatic, Normocephalic Oral: Moist Mucosa, No Gingival or Mucosal Lesions/ Ulcerations Neck: No Nodes, Thyroid Normal Size and Texture Lungs: Clear to auscultation, Normal air movement, No rhonchi, No wheeze Cardiovascular: Regular rate, Regular Rhythm, Normal S1, Normal S2, No murmurs Abdomen: Bowel Sounds Present, Soft, Non Tender, Non-Distended, No Hepato-splenomegaly Extremities: No edema, No Calf Tenderness Skin: No rashes, No breakdown Psych/Mental Status: Normal Affect, Appropriate Microbiology Past 72 Hours 08/11/18 10:40 Blood Culture (Wb) - Anticubital Right Blood Culture - Preliminary No growth in 48 hours. 08/11/18 10:30 Blood Culture (Wb) - Anticubital Right Blood Culture - Preliminary No growth in 48 hours. 08/10/18 12:05 Blood Culture (Wb) - Anticubital Right Blood Culture - Preliminary Escherichia coli 08/10/18 12:00 Blood Culture (Wb) - Anticubital Left Blood Culture - Preliminary Pseudomonas aeroginosa Escherichia coli 08/10/18 13:10 Urine Catheter - Catheter Urine Culture - Final Staphylococcus epidermidis 08/10/18 15:10 Mucosa - Nasopharyngeal Respiratory Panel (PCR) - Final 08/11/18 06:35 Stool C. difficile DNA Amplification - Final 08/10/18 11:43 Mucosa - Nose Influenza Types A,B Direct FA (DANE) - Final Laboratory Results 08/13/18 04:50: WBC 5.3, RBC 3.17 L, Hgb 11.5 L, Hct 32.1 L, MCV 101.3 H, MCH 36.3 H, MCHC 35.8, RDW 11.5 L, RDW Differential 41.9, Plt Count 70 L, MPV 10.9, Immature Gran % (Auto) 0.200, Neut % (Auto) 75.6 H, Lymph % (Auto) 10.6 L, [place] % (Auto) 11.3 H, Eos % (Auto) 2.1, Baso % (Auto) 0.2, Absolute Neuts (auto) 4.0, Absolute Lymphs (auto) 0.56 L, Total Counted Not Reportable 08/13/18 04:50: Sodium 138, Potassium 3.7, Chloride 105, Carbon Dioxide 25.0, Anion Gap 8, BUN 11, Creatinine 0.87, Estim Creat Clear Calc 58.60, Est GFR (MDRD) Af Amer 109, Est GFR (MDRD) Non-Af 90, BUN/Creatinine Ratio 12.6, Glucose 100, Calcium 7.5 L Current Medications Acetaminophen (Tylenol) 650 mg PO Q6H PRN PRN PRN Reason: Fever, headache, pain Last Admin: 08/11/18 18:14 Dose: 650 mg Albuterol Sulfate (Ventolin Aerosols) 2.5 mg INHALATION Q2H PRN PRN PRN Reason: SOB &/OR WHEEZING Last Admin: 08/13/18 05:15 Dose: 2.5 mg Atorvastatin Calcium (Lipitor) 80 mg PO QHS AMANDA Last Admin: 08/12/18 21:46 Dose: 80 mg Guaifenesin (Mucinex) 600 mg PO BID [facility] Last Admin: 08/13/18 10:51 Dose: 600 mg Piperacillin Sod/Tazobactam Sod (Zosyn) 3.375 gm in 50 mls @ 12.5 mls/hr IV Q8 AMANDA Last Admin: 08/13/18 06:01 Dose: 12.5 mls/hr Loperamide HCl (Imodium) 2 mg PO Q4H PRN PRN PRN Reason: Diarrhea Last Admin: 08/11/18 15:51 Dose: 2 mg Magnesium Hydroxide (Milk Of Magnesia) 30 ml PO DAILY PRN PRN Reason: Constipation Nutritional Formula (Lactose Free) (Ensure Enlive) 120 ml PO 4X/DAY [facility] Last Admin: 08/13/18 10:50 Dose: 120 ml Ondansetron HCl (Zofran) 4 mg IV Q8H PRN PRN PRN Reason: NAUSEA/VOMITING Pantoprazole Sodium (Protonix) 40 mg PO DAILY [facility] Last Admin: 08/13/18 10:51 Dose: 40 mg Rivaroxaban (Xarelto) 20 mg PO DAILY@0800 [facility] Last Admin: 08/13/18 08:25 Dose: 20 mg Sodium Chloride () 5 - 15 ml IV UD PRN PRN Reason: SALINE FLUSH Last Admin: 08/11/18 18:16 Dose: 10 ml Sotalol HCl (Betapace (G)) 120 mg PO BID [facility] Last Admin: 08/13/18 10:50 Dose: 120 mg Tamsulosin HCl (Flomax) 0.4 mg PO DAILY@1730 [facility] Last Admin: 08/12/18 17:07 Dose: 0.4 mg Zolpidem Tartrate (Ambien (Generic)) 5 mg PO QHS PRN PRN PRN Reason: INSOMNIA Last Admin: 08/12/18 21:47 Dose: 5 mg Medical Necessity - Tobacco Use Smoking Status: Former smoker Assessment/Plan All Active Problems (Last Updated 08/10/18 @ 14:23 by Yary Virk MD) Colitis (Acute) Bacteremia (Acute) Severe sepsis (Acute) 1. severe sepsis POA resolved etiology unclear: colitis and bacteremia lactic acidosis resolved 2. bacteremia 2 BCx gram stains on the +, 1 for E. coli and the other for E. coli and Pseudomonas. UA negative (UCx showing GP organism, which is likely a contaminant and not an actual infection)--Cystitis ruled out. repeat blood cultures done and negative so far. 2/2 Colitis. Doubt UTI as UA was negative. + UCx likely a contaminant and not a true infection. DW Dr. Jacome of infectious disease inquiring about oral recommendations as fluoroquinolones are not an option as the patient is on Sotalol. He states that he was not comfortable giving recommendations over the phone and asked that his partner, Dr. Delarosa, be consulted. Therefore, patient to remain until seen by ID on 08/14. Continue Zosyn for now. 3. Colitis Bacteria v viral Irregardless, he requires antibiotics due to the bacteremia 4. pAfib rate-controlled continue sotalol and Xarelto 5. CAD: stable continue HIS 6. DVT proph: already on NOAC Code Visit Inpatient E&M: 98192 Subs Hosp L2
--- NOTE | 2018-08-13 13:36 | PN_ITS ---
Patient Problems: Active and Suspected Problems (Last Updated 08/10/18 @ 14:23 by Yary Virk MD) Colitis (Acute) Bacteremia (Acute) Severe sepsis (Acute) Subjective: Feels good. Wants to go home. Vitals/I&O's: Vital Signs Temp Pulse Resp BP Pulse Ox 36.3 C L 68 17 128/67 H 95 08/13/18 08:22 08/13/18 11:28 08/13/18 08:22 08/13/18 08:22 08/13/18 08:22 Oxygen Flow Rate (L/min) 2 Oxygen Delivery Method Room Air Weight: 87.9 kg Body Mass Index (BMI) 33.3 Finger Stick Blood Glucose 101 Intake and Output for Last 24 Hours 08/11/18 08/12/18 08/13/18 23:59 23:59 23:59 Intake Total 5872.6 / 5872.6 1551.2 / 1551.2 725 / 725 Output Total 1100 / 1100 900 / 900 1000 / 1000 Balance 4772.6 / 4772.6 651.2 / 651.2 -275 / -275 General: Alert, No apparent distress HEENT: Atraumatic, Normocephalic Oral: Moist Mucosa, No Gingival or Mucosal Lesions/ Ulcerations Neck: No Nodes, Thyroid Normal Size and Texture Lungs: Clear to auscultation, Normal air movement, No rhonchi, No wheeze Cardiovascular: Regular rate, Regular Rhythm, Normal S1, Normal S2, No murmurs Abdomen: Bowel Sounds Present, Soft, Non Tender, Non-Distended, No Hepato- splenomegaly Extremities: No edema, No Calf Tenderness Skin: No rashes, No breakdown Psych/Mental Status: Normal Affect, Appropriate Microbiology Past 72 Hours 08/11/18 10:40 Blood Culture (Wb) - Anticubital Right Blood Culture - Preliminary No growth in 48 hours. 08/11/18 10:30 Blood Culture (Wb) - Anticubital Right Blood Culture - Preliminary No growth in 48 hours. 08/10/18 12:05 Blood Culture (Wb) - Anticubital Right Blood Culture - Preliminary Escherichia coli 08/10/18 12:00 Blood Culture (Wb) - Anticubital Left Blood Culture - Preliminary Pseudomonas aeroginosa Escherichia coli 08/10/18 13:10 Urine Catheter - Catheter Urine Culture - Final Staphylococcus epidermidis 08/10/18 15:10 Mucosa - Nasopharyngeal Respiratory Panel (PCR) - Final 08/11/18 06:35 Stool C. difficile DNA Amplification - Final 08/10/18 11:43 Mucosa - Nose Influenza Types A,B Direct FA (DANE) - Final Laboratory Results 08/13/18 04:50: WBC 5.3, RBC 3.17 L, Hgb 11.5 L, Hct 32.1 L, MCV 101.3 H, MCH 36.3 H, MCHC 35.8, RDW 11.5 L, RDW Differential 41.9, Plt Count 70 L, MPV 10.9, Immature Gran % (Auto) 0.200, Neut % (Auto) 75.6 H, Lymph % (Auto) 10.6 L, [place] % (Auto) 11.3 H, Eos % (Auto) 2.1, Baso % (Auto) 0.2, Absolute Neuts (auto) 4.0, Absolute Lymphs (auto) 0.56 L, Total Counted Not Reportable 08/13/18 04:50: Sodium 138, Potassium 3.7, Chloride 105, Carbon Dioxide 25.0, Anion Gap 8, BUN 11, Creatinine 0.87, Estim Creat Clear Calc 58.60, Est GFR (MDRD) Af Amer 109, Est GFR (MDRD) Non-Af 90, BUN/Creatinine Ratio 12.6, Glucose 100, Calcium 7.5 L Current Medications Acetaminophen (Tylenol) 650 mg PO Q6H PRN PRN PRN Reason: Fever, headache, pain Last Admin: 08/11/18 18:14 Dose: 650 mg Albuterol Sulfate (Ventolin Aerosols) 2.5 mg INHALATION Q2H PRN PRN PRN Reason: SOB &/OR WHEEZING Last Admin: 08/13/18 05:15 Dose: 2.5 mg Atorvastatin Calcium (Lipitor) 80 mg PO QHS AMANDA Last Admin: 08/12/18 21:46 Dose: 80 mg Guaifenesin (Mucinex) 600 mg PO BID [facility] Last Admin: 08/13/18 10:51 Dose: 600 mg Piperacillin Sod/Tazobactam Sod (Zosyn) 3.375 gm in 50 mls @ 12.5 mls/hr IV Q8 AMANDA Last Admin: 08/13/18 06:01 Dose: 12.5 mls/hr Loperamide HCl (Imodium) 2 mg PO Q4H PRN PRN PRN Reason: Diarrhea Last Admin: 08/11/18 15:51 Dose: 2 mg Magnesium Hydroxide (Milk Of Magnesia) 30 ml PO DAILY PRN PRN Reason: Constipation Nutritional Formula (Lactose Free) (Ensure Enlive) 120 ml PO 4X/DAY [facility] Last Admin: 08/13/18 10:50 Dose: 120 ml Ondansetron HCl (Zofran) 4 mg IV Q8H PRN PRN PRN Reason: NAUSEA/VOMITING Pantoprazole Sodium (Protonix) 40 mg PO DAILY [facility] Last Admin: 08/13/18 10:51 Dose: 40 mg Rivaroxaban (Xarelto) 20 mg PO DAILY@0800 [facility] Last Admin: 08/13/18 08:25 Dose: 20 mg Sodium Chloride () 5 - 15 ml IV UD PRN PRN Reason: SALINE FLUSH Last Admin: 08/11/18 18:16 Dose: 10 ml Sotalol HCl (Betapace (G)) 120 mg PO BID [facility] Last Admin: 08/13/18 10:50 Dose: 120 mg Tamsulosin HCl (Flomax) 0.4 mg PO DAILY@1730 [facility] Last Admin: 08/12/18 17:07 Dose: 0.4 mg Zolpidem Tartrate (Ambien (Generic)) 5 mg PO QHS PRN PRN PRN Reason: INSOMNIA Last Admin: 08/12/18 21:47 Dose: 5 mg Medical Necessity - Tobacco Use Smoking Status: Former smoker Assessment/Plan All Active Problems (Last Updated 08/10/18 @ 14:23 by Yary Virk MD) Colitis (Acute) Bacteremia (Acute) Severe sepsis (Acute) 1. severe sepsis POA resolved etiology unclear: colitis and bacteremia lactic acidosis resolved 2. bacteremia 2 BCx gram stains on the +, 1 for E. coli and the other for E. coli and Pseudomonas. UA negative (UCx showing GP organism, which is likely a contaminant and not an actual infection)--Cystitis ruled out. repeat blood cultures done and negative so far. 2/2 Colitis. Doubt UTI as UA was negative. + UCx likely a contaminant and not a true infection. DW Dr. Jacome of infectious disease inquiring about oral recommendations as fluoroquinolones are not an option as the patient is on Sotalol. He states that he was not comfortable giving recommendations over the phone and asked that his partner, Dr. Delarosa, be consulted. Therefore, patient to remain until seen by ID on 08/14. Continue Zosyn for now. 3. Colitis Bacteria v viral Irregardless, he requires antibiotics due to the bacteremia 4. pAfib rate-controlled continue sotalol and Xarelto 5. CAD: stable continue HIS 6. DVT proph: already on NOAC Code Visit Inpatient E&M: 83340 Subs Hosp L2
[2018-08-13] MEDS: 0.9% NaCl Peripheral Flush Adult/Peds IV ×2 (13:39→21:35)
[2018-08-13] MEDS: Tamsulosin HCl 0.4 MG Capsule PO (17:53)
[2018-08-13] MEDS: Zolpidem Tartrate 5 MG Tablet PO (21:35)
[2018-08-13] MEDS: Atorvastatin Calcium 80 MG Tablet PO (21:35)
[2018-08-14] VITALS (8 sets, daily range): BP systolic 112–132; BP diastolic 67–69; PULSE 63–74; RESP 18–20; TEMP 36.6–36.8; O2SAT 94–97
[2018-08-14] MEDS: Albuterol 2.5 MG/3 ML VIAL.NEB. INHALATION (04:20)
[2018-08-14] MEDS: Piperacil/Tazobactam 3.375 GM/50 ML ML IV (05:27)
--- NOTE | 2018-08-14 08:30 | EKG12_ITS ---
Test Reason : TIMED WITH MEDICATIO Blood Pressure : / mmHG Vent. Rate : 063 BPM Atrial Rate : 063 BPM P-R Int : 170 ms QRS Dur : 086 ms QT Int : 466 ms P-R-T Axes : 020 029 041 degrees QTc Int : 476 ms Sinus rhythm with Premature supraventricular complexes Low voltage QRS Borderline ECG Confirmed by FRANCISCO MEJIA, ARANZA ([id number]), manager editorial RENEA MANRIQUE ([id number] on 08/17/2018 8:31:32 AM Referred By: CARRI Confirmed By:ARANZA SINGH MD
[2018-08-14] MEDS: guaiFENesin 600 MG Tablet PO (10:19)
[2018-08-14] MEDS: Pantoprazole Sodium 40 MG Tablet PO (10:19)
[2018-08-14] MEDS: Rivaroxaban 20 MG Tablet PO (10:19)
[2018-08-14] MEDS: Sotalol Hydrochloride 80 MG Tablet 120 MG PO (10:19)
--- NOTE | 2018-08-14 12:02 | PCM.HP.ID ---
Problem List (1) Bacteremia Status: Acute Reason for Consult: bacteremia Consulted by: Dr. Brown History of Present Illness: The patient is a 78 year old M who presented with sudden onset rigors, weakness, and diarrhea. No abd pain, no dysuria, no sick contacts. No blood in stool. Came to ED, bcxs sent, admitted on zosyn. Feeling better. Strength improved, no further fever. Tmax 101.4 on admission. Denies taking cipro or levaquin before. Full ROS performed and neg except as noted above. - Medical History Past Medical History (Chronic Problems): Chronic Problems (Last Updated 08/10/18 @ 14:23 by Yary Virk MD) Essential (primary) hypertension (Chronic) History of coronary artery stent placement (Chronic 08/04/12) CHAD to RCA, unsuccessful angioplasty of CX with chronic total occlusion 08/04/12 H/O coronary artery bypass surgery (Chronic 03/27/04) CABG X 3, ACOSTA to LAD, SVG to DX branch of Anterior Descending and RCA 03/27/2004 CVA (cerebral vascular accident) (Chronic) Paroxysmal A-fib (Chronic) HLD (hyperlipidemia) (Chronic) Atherosclerotic heart disease of [place] coronary artery without angina pectoris (Chronic) Allergies/Adverse Reactions: Allergies acetaminophen [From Percocet] Allergy (Verified 06/30/18 10:37) Other lisinopril Allergy (Verified 06/30/18 10:37) Unknown oxycodone [From Percocet] Allergy (Verified 06/30/18 10:37) Other pravastatin Allergy (Verified 06/30/18 10:37) Unknown Quinolones Allergy (Verified 06/30/18 10:37) Unknown pregabalin [From Lyrica] Adverse Reaction (Verified 06/30/18 10:37) Other Home Medications: Ambulatory Orders Medication Instructions Recorded Nitroglycerin [Nitrostat] 0.4 mg SUBLINGUAL Q5M PRN #30 tab 05/23/13 Tamsulosin HCl [Flomax] 0.4 mg PO DAILY 05/23/13 Pantoprazole Sodium [Protonix] 40 mg PO DAILY 10/11/16 Sotalol HCl [Betapace (Beta 120 mg PO BID 12/08/17 Sonia)] atorvastatin 80 mg tablet 80 mg PO QHS #90 tab 06/10/18 rivaroxaban 20 mg tablet 20 mg PO DAILY #90 tab 07/17/18 Furosemide [Lasix] 20 mg PO DAILY PRN PRN 08/10/18 Vit C/E/Zn/Coppr/Lutein/Zeaxan 1 each PO BID 08/10/18 [Preservision Areds 2 Softgel] traMADol [Ultram] 50 mg PO PRN PRN 08/10/18 Ciprofloxacin [Cipro] 500 mg PO BID #14 tablet 08/14/18 Metronidazole [Flagyl] 500 mg PO TID #21 tablet 08/14/18 - Social History SMOKING STATUS:: Former smoker Vital Signs Temp Pulse Resp BP Pulse Ox 98.0 F 66 18 132/67 H 95 08/14/18 10:13 08/14/18 10:13 08/14/18 10:13 08/14/18 10:13 08/14/18 10:13 Oxygen Flow Rate (L/min) 2 Oxygen Delivery Method Room Air Weight: 87.9 kg Body Mass Index (BMI) 33.3 Finger Stick Blood Glucose 101 Microbiology Past 72 Hours 08/10/18 12:00 Blood Culture - Final Blood Culture (Wb) - Anticubital Left Pseudomonas aeroginosa Escherichia coli 08/10/18 12:05 Blood Culture - Final Blood Culture (Wb) - Anticubital Right Escherichia coli 08/11/18 10:40 Blood Culture - Preliminary Blood Culture (Wb) - Anticubital Right No growth in 48 hours. 08/11/18 10:30 Blood Culture - Preliminary Blood Culture (Wb) - Anticubital Right No growth in 48 hours. 08/10/18 13:10 Urine Culture - Final Urine Catheter - Catheter Staphylococcus epidermidis 08/10/18 15:10 Respiratory Panel (PCR) - Final Mucosa - Nasopharyngeal 08/11/18 06:35 C. difficile DNA Amplification - Final Stool - Other Studies Radiology: [] reviewed Other Studies: [] Route of nutrition/ use of supplements: [] Nutritional Intake: [] IV Site: [] Trimble Catheter: [] - Physical Exam General: Alert, Oriented x3, Cooperative, No apparent distress HEENT: Atraumatic, PERRLA, EOMI Neck: Supple, No Nodes Lungs: Clear to auscultation, Normal air movement Cardiovascular: Regular rate, Regular Rhythm, No murmurs Abdomen: Soft, Non Tender, Non-Distended Extremities: No edema Skin: No rashes IV Site: Peripheral, without redness Musculoskeletal: No Tenderness to Palpation of Joints or Extremities Neurological: Cranial nerves II-XII grossly intact - Assessment/Plan Antibiotics: [] Assessment/Plan: [] severe sepsis due to acute colitis complicated by ecoli and Pseudomonas bacteremia - much improved. Bcx cleared. Cdiff was neg. On zosyn. Lactate now normal. UA without inflammation, ucx with staph epi likely contaminant. Discussed options re: picc vs po abx. EKG on admit with QTC of 425 and 475 this AM. Ok for d/c home on one week of po cipro and flagyl. Counseled re: signs of qtc prolongation and need to avoid etoh. Recommend repeat ekg for qtc monitoring in next 2-3 days. He follows with Dr. Jasso. Rx written, d/w primary team, thank you, will follow, I gave him my card.
--- NOTE | 2018-08-14 12:15 | DCINST_ITS ---
You will use the following diet at home:: Cardiac Your food should be the consistency of: Regular Your liquids should be the consistency of: Regular/Thin Discharge Activity: Return to Normal Activity Allergies/Adverse Reactions: Allergies acetaminophen [From Percocet] Allergy (Verified 06/30/18 10:37) Other lisinopril Allergy (Verified 06/30/18 10:37) Unknown oxycodone [From Percocet] Allergy (Verified 06/30/18 10:37) Other pravastatin Allergy (Verified 06/30/18 10:37) Unknown Quinolones Allergy (Verified 06/30/18 10:37) Unknown pregabalin [From Lyrica] Adverse Reaction (Verified 06/30/18 10:37) Other Medications to take at Discharge Nitroglycerin [Nitrostat] 0.4 mg SUBLINGUAL Q5M PRN #30 tab 05/23/13 Tamsulosin HCl [Flomax] 0.4 mg PO DAILY 05/23/13 Pantoprazole Sodium [Protonix] 40 mg PO DAILY 10/11/16 Sotalol HCl [Betapace (Beta Sonia)] 120 mg PO BID 12/08/17 atorvastatin 80 mg tablet 80 mg PO QHS #90 tab 06/10/18 rivaroxaban 20 mg tablet 20 mg PO DAILY #90 tab 07/17/18 Furosemide [Lasix] 20 mg PO DAILY PRN PRN 08/10/18 Vit C/E/Zn/Coppr/Lutein/Zeaxan [Preservision Areds 2 Softgel] 1 each PO BID 08/10/18 traMADol [Ultram] 50 mg PO PRN PRN 08/10/18 Ciprofloxacin [Cipro] 500 mg PO BID #14 tablet 08/14/18 Metronidazole [Flagyl] 500 mg PO TID #21 tablet 08/14/18 The following prescriptions were given: Ciprofloxacin [Cipro] 500 mg PO BID #14 tablet Metronidazole [Flagyl] 500 mg PO TID #21 tablet Orders to be completed after discharge: 12 Lead EKG [[facility]] Time Frame: 3 Days, Location: None Selected 12 Lead EKG [[facility]] Location: None Selected Primary Care Physician: Jose Wolfe MD [Primary Care Provider] - Please follow up with your Primary Care Physician in: 1-2 weeks Test Results: Test results from this visit will be discussed in further detail at your follow- up appointment, if applicable. Please Follow Up With: Barney Jasso MD When: 1-2 weeks Proposed Discharge Date: 08/14/18
[2018-08-14] MEDS: metroNIDAZOLE 500 MG Tablet PO (13:32)
[2018-08-14] MEDS: Ciprofloxacin 500 MG Tablet PO (13:33)
--- NOTE | 2018-08-14 14:11 | VDLE_ITS ---
Reason For Study: LLE Pain RIGHT LEFT CFV is compressible, spontaneous, phasic, GSV is normal. competent and demonstrates normal CFV is compressible, spontaneous, phasic, augmentation. competent, and demonstrates normal Procedure augmentation. Exam performed portable in patient room. FV is compressible, spontaneous, phasic, A preliminary report was called and/or faxed competent and demonstrates normal to PCU. augmentation. POP V is compressible, spontaneous, phasic, competent and demonstrates normal augmentation. T/P Trunk is compressible. PTV is compressible. LT PerV is compressible. Interpretation Summary There is no evidence of left lower extremity deep vein thrombosis. Left greater saphenous vein appears patent and compressible segmentally. Normal flow patterns right common femoral vein Ordering Physician: Khushboo Brown Referring Physician: Jose Wolfe M.D. Performed By: Maria Dolores Lewis RVT and Student
--- NOTE | 2018-08-14 15:26 | DS.PCM_ITS ---
Discharge Date and Diagnosis Date of Admission: 08/10/18 Date of Discharge: 08/14/18 - Primary Discharge Diagnosis Acute sepsis and bactermia 2/2 colitis, E coli, pseudomonas CAD, prior stent HTN Prior CVA PAfib HLD Long QT - Secondary Discharge Diagnosis Chronic Problems (Last Updated 08/10/18 @ 14:23 by Yary Virk MD) Essential (primary) hypertension (Chronic) History of coronary artery stent placement (Chronic 08/04/12) CHAD to RCA, unsuccessful angioplasty of CX with chronic total occlusion 08/04/12 H/O coronary artery bypass surgery (Chronic 03/27/04) CABG X 3, ACOSTA to LAD, SVG to DX branch of Anterior Descending and RCA 03/27/2004 CVA (cerebral vascular accident) (Chronic) Paroxysmal A-fib (Chronic) HLD (hyperlipidemia) (Chronic) Atherosclerotic heart disease of [place] coronary artery without angina pectoris (Chronic) Hospital Course and Treatment Imaging Results: RAD/Chest 1 View (Portable) IMPRESSION: Mild degree of increased linear markings at the left lung base suggestive of linear atelectasis. RAD/Chest PA and Lateral IMPRESSION: No pulmonary edema, congestive heart failure or confluent pneumonia. There is no significant interval change. CT/Abdomen/Pelvis WITH Contrast IMPRESSION: Bowel wall thickening in the sigmoid colon which likely represents focal colitis. However, follow-up is recommended to exclude an underlying mass. Urinary bladder wall thickening with adjacent stranding. This is consistent with cystitis. Small amount of free fluid. Trace bilateral pleural effusions with overlying atelectasis. Coronary artery disease. Consults: ID - [place] Operations: None Procedures: None Summary of Care Provided: Hospital course: The patient is a 78 year old M with pmhx of CAD with prior stent, paroxysmal Afib, HTN, prior CVA, HLD, who presented to the ER with c/o fevers chills and weakness, and diarrhea. He had an elevated lactate, fever, tachycardia, and tachypnea. Initial infectious testing was indeterminate. He was presumed septic and started on zosyn and admitted to the PCU. CT abdomen the following day showed colitis. Blood cultures showed pseudomonas and e coli. He had a prolonged QT so ID was consulted. Repeat cultures cleared and the patient became asymptomatic. ID recommended he complete 7 more days of Flagyl and Cipro. He will need an EKG in 1 week to monitor his QT and he will need f/u with cardiology. He should also follow up with his PCP in 1-2 weeks. This patient was seen by Gabriele Currie PA-C under the supervision of Doctor Stephanie. [] - Physical Exam General: Alert, Oriented x3, Cooperative HEENT: Atraumatic, PERRLA, EOMI, Normocephalic Neck: Supple, No JVD, Negative Carotid Bruits Lungs: Clear to auscultation, Normal air movement Cardiovascular: Regular rate, No murmurs Abdomen: Bowel Sounds Present, Soft, Non Tender Extremities: No edema, Capillary Refill Less than 3 Seconds Skin: No rashes, No breakdown Musculoskeletal: No Tenderness to Palpation of Joints or Extremities Neurological: Cranial nerves II-XII grossly intact Psych/Mental Status: Normal Affect, Appropriate, Alert and oriented to time, place, person, mood and affect Vital Signs Temp Pulse Resp BP Pulse Ox 98.2 F 63 18 129/69 H 97 08/14/18 13:34 08/14/18 13:34 08/14/18 13:34 08/14/18 13:34 08/14/18 13:34 Oxygen Flow Rate (L/min) 2 Oxygen Delivery Method Room Air Weight: 193 lb 12.581 oz Body Mass Index (BMI) 33.3 Finger Stick Blood Glucose 101 Intake and Output for Last 24 Hours 08/12/18 08/13/18 08/14/18 23:59 23:59 23:59 Intake Total 1551.2 / 1551.2 1900 / 1900 855 / 855 Output Total 900 / 900 1900 / 1900 275 / 275 Balance 651.2 / 651.2 0 / 0 580 / 580 Microbiology Past 72 Hours 08/10/18 12:00 Blood Culture - Final Blood Culture (Wb) - Anticubital Left Pseudomonas aeroginosa Escherichia coli 08/10/18 12:05 Blood Culture - Final Blood Culture (Wb) - Anticubital Right Escherichia coli 08/11/18 10:40 Blood Culture - Preliminary Blood Culture (Wb) - Anticubital Right No growth in 48 hours. 08/11/18 10:30 Blood Culture - Preliminary Blood Culture (Wb) - Anticubital Right No growth in 48 hours. 08/10/18 13:10 Urine Culture - Final Urine Catheter - Catheter Staphylococcus epidermidis 08/10/18 15:10 Respiratory Panel (PCR) - Final Mucosa - Nasopharyngeal Discharge Diet: Low fat/ Low Cholesterol, 2000 mg Sodium Diet Discharge Activity: Return to Normal Activity Home Medications: Medications to take at Discharge Nitroglycerin [Nitrostat] 0.4 mg SUBLINGUAL Q5M PRN #30 tab 05/23/13 Tamsulosin HCl [Flomax] 0.4 mg PO DAILY 05/23/13 Pantoprazole Sodium [Protonix] 40 mg PO DAILY 10/11/16 Sotalol HCl [Betapace (Beta Sonia)] 120 mg PO BID 12/08/17 atorvastatin 80 mg tablet 80 mg PO QHS #90 tab 06/10/18 rivaroxaban 20 mg tablet 20 mg PO DAILY #90 tab 07/17/18 Furosemide [Lasix] 20 mg PO DAILY PRN PRN 08/10/18 Vit C/E/Zn/Coppr/Lutein/Zeaxan [Preservision Areds 2 Softgel] 1 each PO BID 08/10/18 traMADol [Ultram] 50 mg PO PRN PRN 08/10/18 Ciprofloxacin [Cipro] 500 mg PO BID #14 tab 08/14/18 Metronidazole [Flagyl] 500 mg PO TID #21 tab 08/14/18 Following Prescrptions Were Given to Patient: Ciprofloxacin [Cipro] 500 mg PO BID #14 tab Metronidazole [Flagyl] 500 mg PO TID #21 tab Other Amb Orders: 12 Lead EKG [[facility]] Time Frame: 3 Days, Location: None Selected 12 Lead EKG [[facility]] Location: None Selected Primary Care Physician: Jose Wolfe MD [Primary Care Provider] - Please follow up with your Primary Care Physician in: 1-2 weeks Please Follow Up With: Barney Jasso MD When: 1-2 weeks Please Follow Up With: Jose Wolfe MD Disposition: Home Minutes spent on discharge:: 35 Patient Condition:: Stable Medical Necessity - Tobacco Use Smoking Status: Former smoker Meaningful Use Info Meaningful Use Diagnoses (Choose all that apply): None applicable
--- NOTE | 2018-08-15 14:50 | CASEMGMT ---
NIVIA COLE Discharge Follow-Up Phone Call. Mellissa: Rosalind Strata: 4 Discharge Date: 08-14-18 Adm Dx: Severe Sepsis, Unclear Source of Infection, Suspected Acute Cystitis. Call placed to pt inquire about how he has been doing since he returned home from the hospital. Pt states he is slowing recovering. Inquired if he has any questions re: discharge instructions and then stated his would be a better person to talk to about that and he put her on the phone. Pt's states she was made an appt for pt with Randy Bauer @ Dr Jasso's office for 08/[address] Wolfe on 08/29. states they were able to slate picker pt's new prescriptions and that they do not have any questions about his medications. Discussed Out-pt therapy vs C for therapy with and informed her that this would need to be set up through pt's PCP, Dr Wolfe, if pt decides on wanting to do therapy. voices understaing, stating she doesn't think he is going to need to do therapy at this time but that pt and she feels he would like to look into it, that she will call Dr Wolfe's office. denies having any other questions or concerns about discharge instructions. NIVIA COLE thanked pt for choosing [facility]. states You guys all did such a great job there at the hospital. Ja LABOY RN, CM
== END 2018-08-14 15:31 | disposition home or self-care (01) | DRG 871 ==
LOC: ED 12:11 → PCU 15:00
PROVIDERS: Internal Medicine; Admitting Provider Hospitalist; Emergency Provider Emergency Medicine; Family Provider Internal Medicine; PCP Internal Medicine; Visit Provider Family Medicine
DX: A41.51 Sepsis due to Escherichia coli [E. coli] (principal); R65.21 Severe sepsis with septic shock; A41.52 Sepsis due to Pseudomonas; K52.9 Noninfective gastroenteritis and colitis, unspecified; I48.0 Paroxysmal atrial fibrillation; I25.10 Atherosclerotic heart disease of native coronary artery without angina pectoris; E78.5 Hyperlipidemia, unspecified; I10 Essential (primary) hypertension; E66.9 Obesity, unspecified; N40.0 Benign prostatic hyperplasia without lower urinary tract symptoms; Z68.33 Body mass index [BMI] 33.0-33.9, adult; Z86.74 Personal history of sudden cardiac arrest; Z95.5 Presence of coronary angioplasty implant and graft; Z79.01 Long term (current) use of anticoagulants; Z95.1 Presence of aortocoronary bypass graft; Z86.73 Personal history of transient ischemic attack (TIA), and cerebral infarction without residual deficits; Z87.891 Personal history of nicotine dependence
CPT/HCPCS: 36415; 36600; 71045; 71046; 74177; 80048; 81001; 82803; 83605; 84484; 85025; 85610; 87040; 87077; 87086; 87088; 87186; 87493; 87633; 87641; 87804; 93005; 93971; 94640; 94667; 94668; 97110; 97162; 97165; 97530; 97535; 97802; 99285; J7030; J7040; P9612; Q9967; A4216; J2405

== ENCOUNTER → 2019-01-26 | Outpatient (CLI) | payer MEDICARE, OTHER, SELFPAY ==
[2019-01-09 12:52] VITALS: BMI 31.6
--- NOTE | 2019-01-26 09:47 | ART_ITS ---
Reason For Study: Atherosclerosis Procedure A bilateral lower extremity continuous wave Doppler with analog waveform analysis,segmental pressures,and ankle brachial indexes without exercise. Left Segmental Pressures Left brachial= 127mmHg. Left posterior tibial artery = 179mmHg. Left dorsalis pedis artery = 157mmHg. Left digit = 157 mmHg. Right Segmental Pressures Right brachial= 130mmHg. Right posterior tibial artery = 181mmHg. Right dorsalis pedis artery = 167mmHg. Right digit = 142 mmHg. The right dorsalis pedis waveforms are triphasic. The right posterior tibial artery waveforms are triphasic. Indices The right ankle brachial index by the dorsalis pedis is 1.28. The right ankle brachial index by the posterior tibial artery is 1.39. The right digital-brachial index is 1.09. The left ankle brachial index by the dorsalis pedis is 1.21. The left ankle brachial index by the posterior tibial artery is 1.38. The left digital-brachial index is 1.21. Interpretation Summary Triphasic Doppler waveforms are noted at ankle level bilaterally. Pulse-volume recording waveform amplitudes appear satisfactory at all levels bilaterally. Resting ankle-brachial indices are normal bilaterally. Digital-brachial indices are normal bilaterally. There is no evidence of significant arterial occlusive disease in the lower extremities bilaterally. Ordering Physician: Magui Rowe Referring Physician: Jose Wolfe M.D. Performed By: Nicole Bender RVT
== END | disposition home or self-care (01) ==
LOC: CVS 09:44
PROVIDERS: Family Provider Internal Medicine; PCP Internal Medicine; Referring Provider Podiatrist Foot & Ankle Surgery; Visit Provider Podiatrist Foot & Ankle Surgery
DX: I70.213 Atherosclerosis of native arteries of extremities with intermittent claudication, bilateral legs (principal)
CPT/HCPCS: 93923

== ENCOUNTER 2019-12-19 19:05 | Inpatient (IN) | payer MEDICARE, OTHER, SELFPAY ==
[2019-08-02 12:56] VITALS: BMI 31.9
[2019-12-19] VITALS (11 sets, daily range): BP systolic 130–169; BP diastolic 67–84; PULSE 61–71; RESP 12–19; TEMP 36.5–36.7; O2SAT 94–100; BMI 30.7; BMI 31.0
--- NOTE | 2019-12-19 19:30 | CT_ITS ---
STUDY: CT BRAIN WITHOUT CONTRAST REASON FOR EXAM: Male, 79 years old. LT ARM/FACE Weakness, numbness TODAY RADIATION DOSAGE (If Supplied By Facility): CTDIvol = ( 44.99 ) mGy, DLP = ( 812.98 ) mGycm TECHNIQUE: Transaxial CT imaging of the brain was performed without administration of intravenous contrast material. Individualized dose optimization techniques were used for this CT. COMPARISON: 06/03/2018 FINDINGS: Normal soft tissue structures. Normal calvarium. There is mild cerebral atrophy with widening of the extra-axial spaces and ventricular dilatation. There are areas of decreased attenuation within the white matter tracts of the supratentorial brain, consistent with microvascular disease changes. Stable 1.7 cm lacunar infarct of the left basal ganglia. Normal brainstem. There is mild cerebellar atrophy. There is no intracranial hemorrhage. There are no findings of an acute ischemic infarction. Normal visualized paranasal sinuses. CT/Brain/Head without Contrast IMPRESSION: No change. No acute abnormality. Mild atrophy and White matter disease. Left lacunar infarct. Electronically Signed: Martín Grimes MD at 20:14 EDT , Service support ,
--- NOTE | 2019-12-19 19:30 | EKG12_ITS ---
Test Reason : CP Blood Pressure : / mmHG Vent. Rate : 062 BPM Atrial Rate : 062 BPM P-R Int : 190 ms QRS Dur : 080 ms QT Int : 456 ms P-R-T Axes : 032 022 101 degrees QTc Int : 462 ms Sinus rhythm with Premature atrial complexes Nonspecific T wave abnormality Prolonged QT Abnormal ECG Confirmed by TERRY MEJIA, STEFFI ([id number]), medical editor RENEA MANRIQUE ([id number]) on 12/21/2019 9:16:39 AM Referred By: Khushboo Brown Confirmed By:STEFFI STEWART MD
--- NOTE | 2019-12-19 19:32 | ED.VIS.STROK ---
History of Present Illness Chief Complaint: Neuro S/Sx Informant: Patient Onset: Today Context: Sudden Onset - I was about to get into the shower Timing: Intermittent, Lasts - 1-1.5 hours Quality and Location: Left Face Parasthesia - Lower face, Left Arm Parasthesia, Left Arm Weakness, Slurred Speech Onset: Abrupt Current Severity: Gone Maximum Severity: Moderate Associated Symptoms: Headache - That started after the neurologic symptoms. Negative for: Nausea, Vomiting, Chest Pain Narrative: Patient had similar episode 2 days ago on Tuesday, he states that occurred for about 1.5-2 hours and felt worse than today's episode but it was in the same distribution and quality. Left arm numb and weak, started in his hand and his fingers were cramping up, went up his arm, and he then was tingling in his left lower face only. According to his there was no facial droop. He is legally blind, there were no changes in his vision. He was able to speak and understand others and say what he wanted to, but he was a little slurred. He felt the numbness in the left side of his mouth inside of it. He is on Xarelto and took his last dose this morning. It is for chronic atrial fibrillation. He has had a TIA long ago but it was right-sided symptoms. No strokes in the past. Currently feels a little lightheaded but the neurologic symptoms are all gone. Prior similar symptoms: Yes - Past Medical History (1) Atherosclerotic heart disease of [place] coronary artery without angina pectoris Status: Chronic (2) CVA (cerebral vascular accident) Status: Chronic (3) Essential (primary) hypertension Status: Chronic (4) H/O coronary artery bypass surgery Status: Chronic Comment: CABG X 3, ACOSTA to LAD, SVG to D1, SVG-RPDA 03/27/2004 (5) HLD (hyperlipidemia) Status: Chronic (6) History of coronary artery stent placement Status: Chronic Comment: [id number]-Vacl RCA w/ 3.5 x 12 mm Promus Stent 08/06/2012 (7) Paroxysmal A-fib Status: Chronic Past Medical History - Allergies and Home Meds Allergies/Adverse Reactions: Allergies acetaminophen [From Percocet] Allergy (Verified 12/19/19 19:12) Other lisinopril Allergy (Verified 06/03/20 19:12) Unknown oxycodone [From Percocet] Allergy (Verified 12/19/19 19:12) Other pravastatin Allergy (Verified 12/19/19 19:12) Unknown Quinolones Allergy (Verified 12/19/19 19:12) Unknown pregabalin [From Lyrica] Adverse Reaction (Verified 12/19/19 19:12) Other Primary Care Physician: Jose Wolfe MD [Primary Care Provider] - Surgical History: cholecystectomy, coronary bypass surgery, tonsillectomy Lives: Spouse/ Significant Other Smoking Status: Former smoker - Family History Maternal Family History: Family History (Last Reviewed 08/02/19 @ 13:[address] Barney Jasso MD) Mother No problems noted. Father Cancer Sister Cancer Family History: Reports: Cancer Review of Systems General: Denies: Chills, Fever, Sweats Eyes: Denies: Visual changes - bilaterally, Diplopia ENT: Denies: Rhinorrhea, Sore throat Cardiovascular: Denies: Chest pain, Palpitations Respiratory: Denies: Dyspnea, Cough, Dyspnea on exertion Gastrointestinal: Denies: Abdominal pain, Nausea, Vomiting, Diarrhea, Melena, Hematochezia Genitourinary: Denies: Dysuria, Hematuria, Frequency Musculoskeletal: Denies: Back pain, Swelling, Extremity Pain Skin: Denies: Rash, Wounds Neurological: Reports: Headache, Weakness, Numbness Hematologic: Reports: Easy bruising, Easy bleeding STROKE Vital Signs/Narrative: Vital Signs Temp Pulse Resp BP Pulse Ox 12/19/19 19:08 97.9 F 64 18 136/84 H 98 Inital Vital Signs reviewed: Yes - NIHSS Initial 1a Level of Consciousness: 0 1b LOC Questions (Score 2 if aphasic/stupor): 0 1c LOC Commands (Only score 1st attempt): 0 2 Best Gaze (If aphasic, use reflexive mvmts.): 0 3 Visual: 0 4 Facial Palsy: 0 5 Motor Arm Right (UN = amputation/fusion): 0 5 Motor Arm Left: 0 6 Motor Leg Right: 0 6 Motor Leg Left: 0 7 Limb ataxia (Only + if out of proportion): 0 8 Sensory (Aphasia/stupor=0 or 1, coma=2): 0 9 Best Language: 0 10 Dysarthria (mute, coma=2, intubated=UN): 0 11 Extinction and Inattention (only scored if +): 0 Total Score: 0 General: Well nourished, Well developed, - - NAD, keenly alert Head: Normocephalic, Atraumatic Eyes: Perrl, EOMI ENT: Moist mucous membranes, No rhinorrhea Neck: Supple, Nontender, No lymphadenopathy, - - no carotid bruits bilat Cardiovascular: Regular rate, Regular rhythm, No murmurs, Normal S1, Normal S2. Negative for: Tachycardia Respiratory: No distress, CTA bilaterally, Chest nontender Abdomen: Soft, Nontender, Nondistended, Normal bowel sounds Back: Nontender, Normal Inspection Extremities: Nontender, No edema. Negative for: Calf Tenderness Skin: Normal color, No rash, No Trauma Neurological: Alert, Oriented x3, Cranial nerves II-XII grossly intact, Normal Strength, Normal Sensation Psychological: Normal affect, Normal Mood Diagnostic/Tx/Re-eval Impressions Brain CT 12/19/19 19:30 IMPRESSION: No change. No acute abnormality. Mild atrophy and White matter disease. Left lacunar infarct. Electronically Signed: Martín Grimes MD at 20:14 EDT , Service support , Chest X-Ray 12/19/19 19:55 IMPRESSION: No definite acute or significant abnormality seen. Electronically Signed: Martín Grimes MD at 20:15 EDT , Service support , 12/19/19 19:30 Brain/Head without Contrast [CT] Stat 12/19/19 19:55 Chest 1 View [RAD] Stat Laboratory Results 12/19/19 12/19/19 12/19/19 19:13 19:13 19:13 WBC 6.2 RBC 3.71 L Hgb 13.5 Hct 38.9 L MCV 104.9 H MCH 36.4 H MCHC 34.7 RDW Std Deviation 45.1 H RDW Coeff of Randall 11.9 Plt Count 136 L MPV 11.2 Immature Gran % (Auto) 0.200 Neut % (Auto) 60.7 Lymph % (Auto) 26.0 [place] % (Auto) 11.1 H Eos % (Auto) 1.4 Baso % (Auto) 0.6 Absolute Neuts (auto) 3.8 Absolute Lymphs (auto) 1.62 Nucleated RBC % 0 PT 15.8 H INR 1.3 APTT 36.9 H Sodium 139 Potassium 4.0 Chloride 105 Carbon Dioxide 27.0 Anion Gap 7 BUN 10 Creatinine 1.15 Estim Creat Clear Calc 47.00 Est GFR (MDRD) Af Amer 79 Est GFR (MDRD) Non-Af 65 BUN/Creatinine Ratio 8.7 L Glucose 82 Calcium 8.6 Troponin I < 0.015 - Rhythm Strip Rhythm Strip: Sinus Rhythm Rate: 62 Ectopy: None - EKG Initial EKG Interpretation: Sinus Rhythm, No Acute Injury Pattern, Non-Specific ST Changes - diffuse flattening Prior: Unchanged - Medical Decision Making Stroke Team Activated: No - sx resolved Reviewed Inclusion/Exclusion criteria: Yes Was Patient considered for Endovascular Intervention?: No - resolved neuro sx now IV Alteplase (t-PA) Administered: No - resolved sx, recently took Xarelto Old lacunar infarct in the basal ganglia seen on prior CT scan 2018 and is stable. Patient has no acute findings. He developed no recurrent neurologic symptoms here in ER. Patient is not a candidate for IV TPA for several reasons, he took Xarelto earlier today and he has resolved symptoms, nor thrombectomy since again resolved symptoms, so CT angiography was not performed for that reason. Given the history which is concerning, especially on Xarelto, will admit him for possible TIA. Certainly migraine with neurologic symptoms and subclinical seizure (? September) are in the differential, however he does not have a history of migraines and I would not assume that until he has further testing. Discussed with hospitalist for PCU admission. ED Disposition - Plan for ED Patient: Disposition: Acute Care Hospital [facility] Diagnosis: TIA (transient ischemic attack) Referrals: Jose Wolfe MD [Primary Care Provider] -
[2019-12-19 19:43] LABS: Absolute Lymphocyte Count 1.62 X10^3/uL (0.83-4.51); Absolute Neutrophil Count 3.8 X10^3/uL (2.0-7.7); Basophil# 0.04 X10^3/uL; Basophil% 0.6 % (0-1); Eosinophil# 0.09 X10^3/uL; Eosinophils% 1.4 % (0-5); Hematocrit 38.9 % (40-54); Hemoglobin 13.5 g/dL (13.0-16.5); Lymphocyte # 1.62 X10^3/ul (4.0); Mean Corp Hgb Conc 34.7 g/dL (32-36); Mean Corpuscular Hgb 36.4 pg (27.0-32.0); Mean Corpuscular Volume 104.9 fL (80-94); Mean Platelet Vol. 11.2 fl (6.2-12.0); Monocyte# 0.69 X10^3/uL; Monocyte% 11.1 % (0-10); NRBC Flagged by Analyzer 0 % (0-5); Neutrophil # 3.77 X10^3/uL (2.7-7.7); Neutrophil % 60.7 % (47-70); Platelet Count 136 K/mm3 (150-450); RBC Distribution Width CV 11.9 % (11.6-14.6); RBC Distribution Width SD 45.1 fl (35.1-43.9); Red Blood Count 3.71 M/mm3 (4.6-6.2); White Blood Count 6.2 K/mm3 (4.4-11.0)
[2019-12-19] MEDS: 0.9% Normal Saline 1,000 ML 100 ML IV ×2 (19:48→22:25)
--- NOTE | 2019-12-19 19:55 | RAD_ITS ---
STUDY: X-RAY CHEST REASON FOR EXAM: Male, 79 years old. DIZZINESS, NEURO S/SX TECHNIQUE: Single AP portable view of the chest. COMPARISON: 08/11/2018. FINDINGS: The lungs are clear and expanded. There is no demonstrated pleural abnormality. Normal size heart. Previous CABG. Normal mediastinum and [place]. Normal visualized pulmonary arteries. Normal visualized aortic arch and descending thoracic aorta. Normal visualized thoracic spine. There is degenerative osteoarthritis of the bilateral shoulders. There is no demonstrated abnormality of the visualized soft tissue structures of the upper abdomen. RAD/Chest 1 View IMPRESSION: No definite acute or significant abnormality seen. Electronically Signed: Martín Grimes MD at 20:15 EDT , Service support ,
[2019-12-19 19:56] LABS: International Normalized Ratio 1.3; Prothrombin Time (Protime)PT. 15.8 SECONDS (11.7-14.9)
[2019-12-19 19:57] LABS: Partial Thromboplast Time 36.9 Seconds (24.1-36.2)
[2019-12-19 20:01] LABS: Anion Gap 7 (5-15); BUN 10 mg/dL (7-18); BUN/Creat Ratio 8.7 RATIO (10-20); Calcium,Total 8.6 mg/dL (8.5-10.1); Chloride 105 mmol/L (98-107); Creatinine, Serum 1.15 mg/dL (0.70-1.30); EST Glomerular Filtration Rate 65 mL/min (>60); Est Glom Filt Rate - Afr Amer 79 mL/min (>60); Glucose 82 mg/dL (74-106); Sodium Level 139 mmol/L (136-145)
--- NOTE | 2019-12-19 21:21 | PCM.HP.STD ---
Problem List (1) TIA (transient ischemic attack) Status: Acute (2) Atherosclerotic heart disease of [place] coronary artery without angina pectoris Status: Chronic Qualifiers: [place] vs. transplanted heart: [place] heart Qualified Code(s): I25.10 - Atherosclerotic heart disease of [place] coronary artery without angina pectoris (3) H/O coronary artery bypass surgery Status: Chronic Comment: CABG X 3, ACOSTA to LAD, SVG to D1, SVG-RPDA 03/27/2004 (4) History of coronary artery stent placement Status: Chronic Comment: [id number] RCA w/ 3.5 x 12 mm Promus Stent 08/06/2012 (5) Paroxysmal A-fib Status: Chronic (6) Essential (primary) hypertension Status: Chronic (7) HLD (hyperlipidemia) Status: Chronic Qualifiers: Hyperlipidemia type: unspecified Qualified Code(s): E78.5 - Hyperlipidemia, unspecified (8) CVA (cerebral vascular accident) Status: Chronic Qualifiers: CVA mechanism: unspecified Qualified Code(s): I63.9 - Cerebral infarction, unspecified History of Present Illness Date of Admission: 12/19/19 Chief Complaint: L hand paresthesias, headache, dizziness transiently The patient is a 79 y/o M w/ PMHx: PAF, Hx prior CVA/TIA, HTN, HLD, Hx Vfib w/ associated cardiac arrest, Hx TIA, CAD s/p CABG x3 and PCI, Hx Acute Coronary Thrombus with resulting MS who presents to the [facility] ED on 12/19/19 with history of onset left sided tempoparietal region 2/10 nagging constant dull headache starting Tuesday with episode on Tuesday of L sided hand and left upper extremity as well as left facial paresthesias as well as left hand and upper extremity contracture in addition to sensation that his tongue was heavy with difficulty speaking perceived slurred speech but no specific facial droop noted at that time lasting approximately 2 hours and resolved except patient notes ongoing headaches since with recurrent similar episode 1.5 hour prior to ED presentation with same pattern including onset L hand paresthesias extending upward with contracture onset and paresthesias extending up the lateral left side of his face, down his nasal bridge and into his mouth with again heaviness sensation to his tongue with slurred speech but no obvious witnessed facial droop per spouse with resolution upon ED presentation. 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 Work-up in the ED included T 97.9, heart rate 64, BP 136/84, respiratory rate 18, 98% on room air, CBC with WBC 6.2, hemoglobin 13.5, platelet 136 without market shift, coags with PT 15.8, INR 1.3, PTT 36.9, unremarkable BMP, troponin less than 0.015, CT brain with no acute cardiopulmonary findings with evidence of prior old left lacunar infarct and mild atrophy and white matter disease, x-rays no acute cardiopulmonary findings, EKG with sinus rhythm with no acute evidence of ischemia with chronic changes. Past Medical History Past Medical History (Chronic Problems): Chronic Problems (Last Reviewed 08/02/19 @ 13:[address] Barney Jasso MD) Atherosclerotic heart disease of [place] coronary artery without angina pectoris (Chronic) H/O coronary artery bypass surgery (Chronic 03/27/04) CABG X 3, ACOSTA to LAD, SVG to D1, SVG-RPDA 03/27/2004 History of coronary artery stent placement (Chronic 08/06/12) [id number] RCA w/ 3.5 x 12 mm Promus Stent 08/06/2012 Paroxysmal A-fib (Chronic) Essential (primary) hypertension (Chronic) HLD (hyperlipidemia) (Chronic) CVA (cerebral vascular accident) (Chronic 05/2018) Medical History: Medical History (Last Reviewed 08/02/19 @ 13:[address] Barney Jasso MD) Atherosclerotic heart disease of [place] coronary artery without angina pectoris (Chronic) I25.10 Paroxysmal A-fib (Chronic) I48.0 Essential (primary) hypertension (Chronic) I10 HLD (hyperlipidemia) (Chronic) E78.5 CVA (cerebral vascular accident) (Chronic) Onset Date: 05/2018 I63.9 Acute coronary thrombosis not resulting in myocardial infarction I24.0 Bacteremia R78.81 Cardiac arrest with ventricular fibrillation I46.9, I49.01 Colitis K52.9 Severe sepsis A41.9, R65.20 Syncope R55 Allergies acetaminophen [From Percocet] Allergy (Verified 12/19/19 19:12) Other lisinopril Allergy (Verified 12/19/19 19:12) Unknown oxycodone [From Percocet] Allergy (Verified 12/19/19 19:12) Other pravastatin Allergy (Verified 12/19/19 19:12) Unknown Quinolones Allergy (Verified 12/19/19 19:12) Unknown pregabalin [From Lyrica] Adverse Reaction (Verified 12/19/19 19:12) Other Home Medications: Ambulatory Orders Medication Instructions Recorded Tamsulosin HCl [Flomax] 0.4 mg PO DAILY 05/23/13 Pantoprazole Sodium [Protonix] 40 mg PO DAILY 10/11/16 traMADol [Ultram] 50 mg PO BID PRN PRN 08/10/18 nitroglycerin 0.4 mg sublingual 0.4 mg SUBLINGUAL Q5M PRN #30 tab 01/09/19 tablet sotalol 120 mg tablet 120 mg PO BID #180 tab 12/03/19 Atorvastatin Calcium [Lipitor] 80 mg PO DAILY 12/19/19 Furosemide [Lasix] 20 mg PO DAILY PRN PRN 12/19/19 Rivaroxaban [Xarelto] 20 mg PO DAILY 12/19/19 Surgical History: Surgical History (Last Reviewed 08/02/19 @ 13:[address] Barney Jasso MD) H/O coronary artery bypass surgery (Chronic) Onset Date: 03/27/04 Z95.1 CABG X 3, ACOSTA to LAD, SVG to D1, SVG-RPDA 03/27/2004 History of coronary artery stent placement (Chronic) Onset Date: 08/06/12 Z95.5 [id number] RCA w/ 3.5 x 12 mm Promus Stent 08/06/2012 History of cholecystectomy Z90.49 History of incisional hernia repair Z98.890, Z87.19 History of left heart catheterization Onset Date: 09/2016 Z98.890 2000, 2003, 2009, 2012 History of tonsillectomy Z90.89 Surgical History: cholecystectomy, coronary bypass surgery, tonsillectomy, - - CABG x3, PCI, umbilical hernia repair x2, tonsillectomy, cholecystectomy. Psychiatric History: No pertinent psych hx Lives: Spouse/ Significant Other Smoking Status: Former smoker - Patient quit cigarette tobacco usage in 1979 with prior to his 3 pack/day since he been 17 years old. Tobacco Use: Non-smoker Alcohol: Occasional - Patient notes 1-2 beers occasionally. Drugs: None - *Family History Maternal Family History: Family History (Last Reviewed 08/02/19 @ 13:[address] Barney Jasso MD) Mother No problems noted. Father Cancer Sister Cancer History Items: - - Patient denies any market maternal family history including heart disease, diabetes or cancer. Paternal Family History: Family History (Last Reviewed 08/02/19 @ 13:[address] Barney Jasso MD) Mother No problems noted. Father Cancer Sister Cancer History Items: Cancer - Patient believes his father to have had esophageal cancer. Review of Systems Constitutional: Reports: Malaise, Weakness, Fatigue. Denies: Chills, Fever, Weight Change HEENT: Denies: Head Aches, Sinus Congestion, Sinus Drainage Cardiovascular: Denies: Chest Pain, Palpitations Respiratory: Denies: Cough, Shortness of breath at rest, Sputum production Gastrointestinal: Denies: Abdominal Pain, Nausea, Vomiting Genitourinary: Denies: Dysuria Musculoskeletal: Reports: - - LUE contractures.. Denies: Joint Pain, Joint Tenderness Skin: Denies: Rash, Wounds Neurological: Reports: Slurred speech, Numbness, Tingling. Denies: Focal weakness Psychiatric: Denies: Anxiety, Depression, Homicidal Ideations, Suicidal Ideations Hematologic/ Lymphatic: Denies: Easy Bruising, Easy Bleeding VTE Information - Inpt Only VTE Present on Admission: No VTE Mechan Device Prophylaxis: SCD's VTE Pharm Prophylaxis ordered?: No Reason prophylaxis not ordered:: Treatment Not Indicated - On xarelto. Patient Problems: Active and Suspected Problems (Last Reviewed 08/02/19 @ 13:[address] Barney Jasso MD) TIA (transient ischemic attack) (Acute) Subjective: Patient seated upright in ED bed, no acute distress, complete resolution of prior symptoms except still mild dull headache 1 out of 10 in severity. Objective: Physical Examination: General: awake, alert, oriented x 3 and cooperative, seated upright in the ED bed in no apparent distress. Skin: normal color, turgor, no icterus, cyanosis. HEENT: AT/NC, EOMI, technically legally blind, wearing glasses, PERRLA, MMM, no carotid bruits or JVD noted. Lungs: CTA bilaterally, moderate effort, mild decrease BL bases, no rales, ronchi or wheezing. Heart: Regular rate and rhythm; no gallop, rub audible. Abdomen: soft, obese, NTTP, ND, normal BS, no HSM. Extremities: no cyanosis, clubbing, or edema. Neurological: patient awake, alert, oriented x 3; cognitive function appears baseline intact; pupils equally reactive to light and accomodation; cranial nerves II-XII grossly normal, moving all 4 extremities, no focal deficits, negative Babinski, appropriate [id number] and [id number], strength preserved, sensation appropriate. Psychiatric: affect appears normal, no acute evidence of depressive or anxiety feelings. - Physical Exam Vitals/I&O's: Vital Signs Temp Pulse Resp BP Pulse Ox 97.9 F 61 18 130/77 H 94 12/19/19 19:08 12/19/19 21:00 12/19/19 21:00 12/19/19 21:00 12/19/19 21:00 Oxygen Flow Rate (L/min) 2 Oxygen Delivery Method Room Air Weight: 190 lb 11.198 oz Body Mass Index (BMI) 30.7 Finger Stick Blood Glucose 74 Laboratory Results 12/19/19 19:13: WBC 6.2, RBC 3.71 L, Hgb 13.5, Hct 38.9 L, MCV 104.9 H, MCH 36.4 H, MCHC 34.7, RDW Std Deviation 45.1 H, RDW Coeff of Randall 11.9, Plt Count 136 L, MPV 11.2, Immature Gran % (Auto) 0.200, Neut % (Auto) 60.7, Lymph % (Auto) 26.0, Kings % (Auto) 11.1 H, Eos % (Auto) 1.4, Baso % (Auto) 0.6, Absolute Neuts (auto) 3.8, Absolute Lymphs (auto) 1.62, Nucleated RBC % 0 12/19/19 19:13: PT 15.8 H, INR 1.3, APTT 36.9 H 12/19/19 19:13: Sodium 139, Potassium 4.0, Chloride 105, Carbon Dioxide 27.0, Anion Gap 7, BUN 10, Creatinine 1.15, Estim Creat Clear Calc 47.00, Est GFR (MDRD) Af Amer 79, Est GFR (MDRD) Non-Af 65, BUN/Creatinine Ratio 8.7 L, Glucose 82, Calcium 8.6, Troponin I < 0.015 Current Medications Sodium Chloride () 1,000 mls @ 100 mls/hr IV .Q10H ONE Stop: 12/20/19 05:30 Last Admin: 12/19/19 19:48 Dose: 100 mls/hr Documented by: Labetalol HCl (Trandate) 20 mg IV X1 PRN PRN Reason: BLOOD PRESSURE Assessment/Plan All Active Problems (Last Reviewed 08/02/19 @ 13:[address] Barney Jasso MD) TIA (transient ischemic attack) (Acute) The patient is a 79 y/o M w/ PMHx: PAF, Hx prior CVA/TIA, HTN, HLD, Hx Vfib w/ associated cardiac arrest, Hx TIA, CAD s/p CABG x3 and PCI who presents to the [facility] ED on 12/19/19 with history of onset left sided tempoparietal region 2/10 nagging constant dull headache starting Tuesday with episode on Tuesday of L sided hand and left upper extremity as well as left facial paresthesias as well as left hand and upper extremity contracture in addition to sensation that his tongue was heavy with difficulty speaking perceived slurred speech but no specific facial droop with recurrent event on day of ED presentation. 1. Left-sided paresthesias, weakness, slurred speech, LUE contractures transiently concerning for TIA versus Complex migraine versus Seizure w/ Hx prior TIA: Will admit to PCU, will obtain MRI Brain, MRA Head and Neck, ECHO, PT/OT/Speech/Nutrition evaluation per protocol. Will allow permissive HTN, maintain on asa, xarelto, statin w/ AM FLP, fall precautions. Mag, TSH, FLP and HgbA1c pending. Given atypical LUE contracture description will also obtain EEG. Once these studies obtained including EEG would then plan consultation with Neurology at that time. 2. CAD: Status post CABG x3 and PCI as well as history of acute coronary thrombus with resulting MS, maintain on aspirin, Xarelto, statin, holding hypertensive regimen except sotalol given PAF history given acute presentation as noted. 3. Hypertension: We will maintain permissive hypertension given acute presentation as noted. 4. Hyperlipidemia: Continue home statin regimen. AM FLP. 5. PAF: We will continue patient home sotalol regimen as well as Xarelto. 6. GERD: We will continue patient home Protonix regimen. 7. DVT prophylaxis: SCDs, continue home Xarelto regimen. 8. CODE status: Patient SHAAN is his and living will is currently in place. Discussed CODE status at length including difference between FULL code, DNR-CCA and DNR-CC status. Following discussions about the differences in these status, requested full code status. Advanced Care Planning Face to Face Time: 16 minutes. OBSV E&M: 72784 Initial observation care L3 Procedures: 80869 Advncd Care Plan 30 Min
--- NOTE | 2019-12-19 22:25 | ECHOCS_ITS ---
Reason For Study: TIA/CVA Procedure This was a 2D Doppler, Color Flow transthoracic echocardiogram. The study was technically difficult. Contrast injection was performed. Exam performed portable in patient room. Left Ventricle Normal LV size. Left ventricular systolic function is normal. The estimated ejection fraction is 60 %. Diastolic function is indeterminate. No regional wall motion abnormalities noted. Right Ventricle Normal RV size. Normal systolic function. Atria The left atrium is mildly enlarged. Normal right atrium. No doppler evidence for ASD. Mitral Valve There is no mitral annular calcification. Mild focal mitral valve calcification of the anterior leaflet. Trivial mitral valve insufficiency. Tricuspid Valve Normal tricuspid valve. Trivial tricuspid valve insufficiency. Right ventricular systolic pressure estimated to be 31 mmHg. Aortic Valve Trisinus/trileaflet aortic valve. Normal aortic valve. Pulmonic Valve The pulmonic valve is not well visualized. Trivial pulmonic valve insufficiency. Great Vessels Normal sized aortic root. Pericardium/Pleural No pericardial effusion. Medication Diluted definity 1.5ml given slow IV push to enhance endocardial definition. MMode/2D Measurements & Calculations LVIDd: 4.9 cm IVSd: 0.71 cm Ao root diam: 3.7 cm LVIDs: 2.9 cm LVPWd: 1.0 cm RVDd: 4.0 cm FS: 40.3 % LAV(MOD-bp): 46.9 ml LVAd ap4: 26.7 cm2 SV(MOD-sp4): 55.4 ml LAV(MOD-bp) Indexed: 24.2 ml/m2 EDV(MOD-sp4): 85.7 ml LAV(MOD-sp2): 45.6 ml EDV(sp4-el): 88.0 ml LAV(MOD-sp4): 45.2 ml LVAs ap4: 14.9 cm2 ESV(MOD-sp4): 30.3 ml ESV(sp4-el): 31.4 ml EF(MOD-sp4): 64.6 % EF(sp4-el): 64.4 % SV(sp4-el): 56.7 ml LA A4 area: 18.1 cm2 LA dimension(2D): 5.1 cm RA A4 area: 16.6 cm2 Time Measurements MV dec time: 0.30 sec Doppler Measurements & Calculations MV E max kj: 55.9 cm/sec Lat Peak E' Kj: 7.3 cm/sec Med Peak E' Kj: 3.7 cm/sec MV A max kj: 57.2 cm/sec E/E' lat: 7.7 E/E' med: 15.2 MV E/A: 0.98 Ao V2 max: 107.2 cm/sec LV V1 max: 96.9 cm/sec PA V2 max: 125.0 cm/sec Ao max P.6 mmHg LV V1 max P.8 mmHg TR max kj: 263.7 cm/sec TR max P.8 mmHg Interpretation Summary The study was technically difficult. Contrast injection was performed. Left ventricular systolic function is normal. The estimated ejection fraction is 60 %. The left atrium is mildly enlarged. Mild focal mitral valve calcification of the anterior leaflet. Trivial mitral valve insufficiency. Trivial tricuspid valve insufficiency. Trivial pulmonic valve insufficiency. Right ventricular systolic pressure estimated to be 31 mmHg. Diastolic function is indeterminate. Ordering Physician: Khushboo Brown Referring Physician: AMY LANDIS Performed By: Dolly Inman, RDCS, RVT
[2019-12-19 22:57] LABS: Magnesium 2.1 mg/dL (1.6-2.6)
[2019-12-19] MEDS: Famotidine 20 MG Tablet PO (23:00)
[2019-12-20] VITALS (13 sets, daily range): BP systolic 119–159; BP diastolic 50–83; PULSE 57–68; RESP 16–18; TEMP 36.6–37.1; O2SAT 95–98; BMI 31.0
[2019-12-20 06:00] LABS: Absolute Lymphocyte Count 1.42 X10^3/uL (0.83-4.51); Absolute Neutrophil Count 4.3 X10^3/uL (2.0-7.7); Basophil# 0.03 X10^3/uL; Basophil% 0.5 % (0-1); Eosinophil# 0.14 X10^3/uL; Eosinophils% 2.2 % (0-5); Hematocrit 37.8 % (40-54); Hemoglobin 13.3 g/dL (13.0-16.5); Lymphocyte # 1.42 X10^3/ul (4.0); Lymphocyte % 21.9 % (19-41); Mean Corp Hgb Conc 35.2 g/dL (32-36); Mean Corpuscular Volume 102.4 fL (80-94); Mean Platelet Vol. 10.9 fl (6.2-12.0); Monocyte# 0.58 X10^3/uL; Monocyte% 8.9 % (0-10); NRBC Flagged by Analyzer 0 % (0-5); Neutrophil # 4.29 X10^3/uL (2.7-7.7); Platelet Count 115 K/mm3 (150-450); RBC Distribution Width CV 11.5 % (11.6-14.6); RBC Distribution Width SD 43.4 fl (35.1-43.9); Red Blood Count 3.69 M/mm3 (4.6-6.2); White Blood Count 6.5 K/mm3 (4.4-11.0)
[2019-12-20 06:47] LABS: ALB/GLOB Ratio 1.1 RATIO (0.9-2.4); AST(SGOT) 18 U/L (15-37); Alanine Aminotransfer ALT/SGPT 27 U/L (16-61); Albumin, Serum 2.9 g/dL (3.2-5.0); Alkaline Phosphatase 86 U/L (45-117); Anion Gap 7 (5-15); BUN 14 mg/dL (7-18); BUN/Creat Ratio 15.1 RATIO (10-20); Chloride 106 mmol/L (98-107); Cholesterol 90 mg/dL (200); Creatinine, Serum 0.93 mg/dL (0.70-1.30); EST Glomerular Filtration Rate 84 mL/min (>60); Est Glom Filt Rate - Afr Amer 101 mL/min (>60); Estimated Creatinine Clearance 56.03 ml/min; Globulin 2.6 g/dL (2.2-4.2); Glucose 104 mg/dL (74-106); High Density Lipoprotein 31 mg/dL; Potassium 3.8 mmol/L (3.5-5.1); Protein, Total 5.5 g/dL (6.4-8.2); Sodium Level 137 mmol/L (136-145); T4 Free Direct 0.99 ng/dL (0.76-1.46); Thyroid Stim Hormone (TSH) 2.31 uIU/mL (0.358-3.74); Triglycerides 113 mg/dL; Very Low Density Lipoprotein 23 mg/dL (5-40)
--- NOTE | 2019-12-20 08:00 | MRI_ITS ---
STUDY: MRA NECK WITHOUT CONTRAST REASON FOR EXAM: Male, 79 years old. cva, left weakness cva, left upper extremity contracture, left weakness, dizziness TECHNIQUE: Source images were obtained, MIPs were performed. The study was performed unenhanced. The axial sequences are degraded with motion artifact. COMPARISON: MRI of the brain dated December 20, 2019 FINDINGS: RIGHT CAROTID ARTERIES: Normal right common carotid artery (CCA). Normal right common carotid bulb. There is mild atherosclerotic plaque formation of the origin of the right internal carotid artery with less than 50% cross sectional diameter stenosis. Normal visualized cervical portion of the right internal carotid artery. There is mild atherosclerotic plaque formation of the origin of the right external carotid artery with less than 50% cross sectional diameter stenosis. LEFT CAROTID ARTERIES: Normal left common carotid artery (CCA). Normal left common carotid bulb. Normal origin of the left internal carotid (ICA) artery without a hemodynamically significant stenosis. There is mild atherosclerotic stenosis in the mid cervical portion of the left internal carotid artery. Normal origin of the left external carotid artery (ECA). VERTEBRAL ARTERIES: Normal antegrade flow within the bilateral vertebral artery without a hemodynamically significant stenosis. MRI/MRA Neck without Contrast IMPRESSION: 1. Mild bilateral atherosclerotic stenosis. 2. No demonstrated occlusion or hemodynamically significant stenosis of the bilateral cervical carotid and vertebral arteries. Electronically Signed: Matthias Carr MD at 15:15 EDT , Service support ,
--- NOTE | 2019-12-20 08:00 | MRI_ITS ---
STUDY: MRA OF THE HEAD WITHOUT CONTRAST REASON FOR EXAM: Male, 79 years old. cva, LUE contracture, left paresthesias TECHNIQUE: 3-D leei-dn-vzruqi (TOF) imaging was performed with MIPs. The study was performed unenhanced. COMPARISON: MRI of the brain dated December 20, 2019. FINDINGS: Normal bilateral petrous carotid arteries. Normal right cavernous carotid artery with a normal supraclinoid bifurcation. Normal left cavernous carotid artery with a normal supraclinoid bifurcation. Normal right A1 segments of the anterior cerebral artery. Normal left A1 segments of the anterior cerebral artery. Normal intact anterior communicating artery (ACOM). Normal bilateral A2 segments of the anterior cerebral arteries. Normal right M1 and M2 segments of the middle cerebral arteries, with a normal M1 bifurcation. Normal left M1 and M2 segments of the middle cerebral arteries, with a normal M1 bifurcation. Normal right posterior communicating artery (PCOM). Normal left posterior communicating artery (PCOM). Normal bilateral vertebral arteries. Normal basilar artery with a normal basilar bifurcation. The visualized bilateral superior cerebellar (SCA) arteries are normal. Normal bilateral P1, P2 and visualized P3 segments of the posterior cerebral arteries. There is no demonstrated aneurysm of the [place]. There is no major vessel occlusion or hemodynamically significant stenosis. MRI/MRA Head ONLY without Contrast IMPRESSION: 1. There is no demonstrated aneurysm of the [place]. There is no major vessel occlusion or hemodynamically significant stenosis. Electronically Signed: Matthias Carr MD at 14:09 EDT , Service support ,
--- NOTE | 2019-12-20 08:00 | MRI_ITS ---
STUDY: MRI BRAIN WITHOUT CONTRAST REASON FOR EXAM: Male, 79 years old. cva, left upper extremity contracture, left weakness, dizziness TECHNIQUE: Standardized multiplanar fat and water weighted pulse sequences were obtained. COMPARISON: Head CT dated December 19, 2019 FINDINGS: There is mild cerebral atrophy with widening of the extra-axial spaces and ventricular dilatation. There are multiple white matter hyperintensities, distributed throughout the deep white matter tracts of the cerebral hemispheres, consistent with mild to moderate chronic white matter ischemic changes. There is no evidence for recent intracranial ischemia or other cause of cytotoxic edema on diffusion weighted imaging (DWI). Normal T2* images of the brain without demonstrated susceptibility artifact. There is no demonstrated hemosiderin stain. A small old infarct is present in the mid aspect of the left periventricular white matter. Normal bilateral basal ganglia. Normal thalami. There is no extra-axial fluid accumulation. Normal flow voids within the major intracranial circulation suggesting patency by spin echo criteria. Normal sella turcica, pituitary gland, infundibular stalk, optic chiasm and hypothalamus. Normal tectal plate and pineal gland. Normal midbrain, jose m and medulla. Normal cerebellum. Normal basal cisterns. Normal bilateral temporal bones. Normal bilateral internal auditory canals. No demonstrated orbital abnormality, within the constraints of a routine brain study. Normal visualized paranasal sinuses. Normal calvarium and skull base. Normal visualized soft tissue structures. MRI/Brain without Contrast IMPRESSION: 1. Chronic mild to moderate ischemic and involutional changes of the brain, as described above. 2. 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 3. No demonstrated acute infarct or intracranial hemorrhage. Electronically Signed: Matthias Carr MD at 14:06 EDT , Service support ,
[2019-12-20 08:20] LABS: Hemoglobin A1c 5.3 % (3.8-5.6)
[2019-12-20] MEDS: Rivaroxaban 20 MG Tablet PO (10:00)
[2019-12-20] MEDS: Aspirin 81 MG TAB.CHEW PO (10:00)
[2019-12-20] MEDS: Tamsulosin HCl 0.4 MG Capsule PO (10:00)
[2019-12-20] MEDS: Pantoprazole Sodium 40 MG Tablet PO (10:00)
[2019-12-20] MEDS: Famotidine 20 MG Tablet PO ×2 (10:00→22:31)
[2019-12-20] MEDS: Sotalol Hydrochloride 80 MG Tablet 120 MG PO ×2 (10:00→22:31)
[2019-12-20] MEDS: LORazepam 2 MG/ML Syringe 1 MG IV (11:46)
--- NOTE | 2019-12-20 13:46 | PCM.PROGNOTE ---
<Carly Hughes - Last Filed: 12/20/19 14:02> Patient Problems: Active and Suspected Problems (Last Reviewed 08/02/19 @ 13:[address] Barney Jasso MD) TIA (transient ischemic attack) (Acute) Subjective: Patient seen and examined. Still has mild sensory changes left upper extremity and left face. Denies difficulty swallowing. No new neurologic symptoms or focal deficits. - Physical Exam Vitals/I&O's: Vital Signs Temp Pulse Resp BP Pulse Ox 98.1 F 59 L 18 136/50 H 97 12/20/19 09:54 12/20/19 11:07 12/20/19 09:54 12/20/19 09:54 12/20/19 09:54 Oxygen Flow Rate (L/min) 2 Oxygen Delivery Method Room Air Weight: 186 lb 8.177 oz Body Mass Index (BMI) 31.0 Finger Stick Blood Glucose 74 Intake and Output for Last 24 Hours 12/18/19 12/19/19 12/20/19 23:59 23:59 23:59 Intake Total 750 / 750 840 / 840 Output Total 600 / 600 400 / 400 Balance 150 / 150 440 / 440 General: Alert, Oriented x3, Cooperative HEENT: Atraumatic, PERRLA, EOMI, Normocephalic Neck: Supple, No JVD, Negative Carotid Bruits Lungs: Clear to auscultation, Normal air movement Cardiovascular: Regular rate, No murmurs Abdomen: Bowel Sounds Present, Soft, Non Tender, Non-Distended Extremities: No clubbing, No cyanosis, No edema, Capillary Refill Less than 3 Seconds Skin: No rashes, No breakdown Musculoskeletal: No Tenderness to Palpation of Joints or Extremities Neurological: Cranial nerves II-XII grossly intact, Neuro grossly intact, - - Mild sensory changes left upper extremity and left face. Psych/Mental Status: Normal Affect, Appropriate Laboratory Results 12/19/19 19:13: WBC 6.2, RBC 3.71 L, Hgb 13.5, Hct 38.9 L, MCV 104.9 H, MCH 36.4 H, MCHC 34.7, RDW Std Deviation 45.1 H, RDW Coeff of Randall 11.9, Plt Count 136 L, MPV 11.2, Immature Gran % (Auto) 0.200, Neut % (Auto) 60.7, Lymph % (Auto) 26.0, Catron % (Auto) 11.1 H, Eos % (Auto) 1.4, Baso % (Auto) 0.6, Absolute Neuts (auto) 3.8, Absolute Lymphs (auto) 1.62, Nucleated RBC % 0 12/19/19 19:13: PT 15.8 H, INR 1.3, APTT 36.9 H 12/19/19 19:13: Sodium 139, Potassium 4.0, Chloride 105, Carbon Dioxide 27.0, Anion Gap 7, BUN 10, Creatinine 1.15, Estim Creat Clear Calc 47.00, Est GFR (MDRD) Af Amer 79, Est GFR (MDRD) Non-Af 65, BUN/Creatinine Ratio 8.7 L, Glucose 82, Calcium 8.6, Troponin I < 0.015 12/19/19 19:13: Magnesium 2.1 12/20/19 05:30: WBC 6.5, RBC 3.69 L, Hgb 13.3, Hct 37.8 L, MCV 102.4 H, MCH 36.0 H, MCHC 35.2, RDW Std Deviation 43.4, RDW Coeff of Randall 11.5 L, Plt Count 115 L, MPV 10.9, Immature Gran % (Auto) 0.500, Neut % (Auto) 66.0, Lymph % (Auto) 21.9, Catron % (Auto) 8.9, Eos % (Auto) 2.2, Baso % (Auto) 0.5, Absolute Neuts (auto) 4.3, Absolute Lymphs (auto) 1.42, Nucleated RBC % 0 12/20/19 05:30: Sodium 137, Potassium 3.8, Chloride 106, Carbon Dioxide 24.0, Anion Gap 7, BUN 14, Creatinine 0.93, Estim Creat Clear Calc 56.03, Est GFR (MDRD) Af Amer 101, Est GFR (MDRD) Non-Af 84, BUN/Creatinine Ratio 15.1, Glucose 104, Calcium 8.0 L, Total Bilirubin 0.70, AST 18, ALT 27, Alkaline Phosphatase 86, Total Protein 5.5 L, Albumin 2.9 L, Globulin 2.6, Albumin/Globulin Ratio 1.1, Triglycerides 113, Cholesterol 90, LDL Cholesterol 36, VLDL Cholesterol 23, HDL Cholesterol 31 L, TSH 2.31, Free T4 0.99 12/20/19 05:30: Hemoglobin A1c 5.3 Current Medications Acetaminophen (Tylenol) 650 mg PO Q6H PRN PRN PRN Reason: Pain Score 1-10/Temp > 100.7 F Al Hydroxide/Mg Hydroxide (Mylanta Ii) 30 ml PO Q6H PRN PRN PRN Reason: Gastric Burning Albuterol Sulfate (Ventolin Aerosols) 2.5 mg INHALATION Q2H PRN PRN PRN Reason: Dyspnea, wheezing Aspirin (Aspirin, Baby) 81 mg PO DAILY@0800 [facility] Last Admin: 12/20/19 10:00 Dose: 81 mg Documented by: Atorvastatin Calcium (Lipitor) 80 mg PO QHS [facility] Dextrose (D50w Syringe) 0 gm IV X1 PRN; Protocol PRN Reason: Hypoglycemia Famotidine (Pepcid) 20 mg PO BID [facility] Last Admin: 12/20/19 10:00 Dose: 20 mg Documented by: Glucagon () 1 mg IM .X1 PRN PRN Reason: Hypoglycemia Guaifenesin (Robitussin) 20 ml PO Q4H PRN PRN PRN Reason: COUGH Hydralazine HCl (Apresoline Iv) 5 mg IV Q30M PRN PRN Reason: to maintain BP goals Sodium Chloride () 1,000 mls @ 100 mls/hr IV .Q10H [facility] Last Admin: 12/19/19 22:25 Dose: 100 mls/hr Documented by: Labetalol HCl (Trandate) 10 - 20 mg IV Q10M PRN PRN PRN Reason: to maintain BP goals Lorazepam (Ativan) 1 mg IV X1 PRN PRN Reason: Before MRI Last Admin: 12/20/19 11:46 Dose: 1 mg Documented by: Magnesium Hydroxide (Milk Of Magnesia) 30 ml PO DAILY PRN PRN PRN Reason: Constipation Melatonin (Melatonin) 3 mg PO QHS PRN PRN PRN Reason: INSOMNIA Nitroglycerin (Nitrostat) 0.4 mg SUBLINGUAL Q5M PRN PRN Reason: CARDIAC/CHEST PAIN Ondansetron HCl (Zofran) 4 mg IV Q8H PRN PRN PRN Reason: NAUSEA/VOMITING Pantoprazole Sodium (Protonix) 40 mg PO DAILY [facility] Last Admin: 12/20/19 10:00 Dose: 40 mg Documented by: Prochlorperazine Edisylate (Compazine Iv) 5 mg IV Q4H PRN PRN PRN Reason: Breakthrough Nausea/Vomiting Psyllium Hydrophilic Mucilloid (Metamucil) 1 packet PO DAILY PRN PRN PRN Reason: Constipation Rivaroxaban (Xarelto) 20 mg PO DAILYCM [facility] Last Admin: 12/20/19 10:00 Dose: 20 mg Documented by: Senna/Docusate Sodium (Senokot-S, Beverley-Colace) 2 tablet PO BID PRN PRN PRN Reason: Constipation Sodium Chloride () 10 - 40 ml IV UD PRN PRN Reason: SALINE FLUSH Sotalol HCl (Betapace (G)) 120 mg PO BID [facility] Last Admin: 12/20/19 10:00 Dose: 120 mg Documented by: Tamsulosin HCl (Flomax) 0.4 mg PO DAILY [facility] Last Admin: 12/20/19 10:00 Dose: 0.4 mg Documented by: Throat Lozenges (Cepacol Sore Throat Lozenge) 1 lozenge MUCOUS MEM Q2H PRN PRN PRN Reason: SORE THROAT Tramadol HCl (Ultram) 50 mg PO BID PRN PRN PRN Reason: Pain Score 1-10/10 Medical Necessity - Tobacco Use Smoking Status: Never smoker Tobacco Use: Non-smoker Assessment/Plan All Active Problems (Last Reviewed 08/02/19 @ 13:[address] Barney Jasso MD) TIA (transient ischemic attack) (Acute) 1. CVA vs TIA-brain CT unremarkable. Echocardiogram demonstrates an EF of 60%. EEG unremarkable. MRI of brain, MRA of head and neck pending. PT/OT/ST. Continue aspirin, statin. Will consult neurology when imaging has been read. 2. CAD s/p CABG and PCI-continue aspirin, Xarelto, statin. 3. Hypertension-stable. 4. Hyperlipidemia-continue statin. 5. Paroxysmal atrial fibrillation-continue sotalol, Xarelto. 6. GERD- continue PPI. DVT prophylaxis- Xarelto This patient was seen by TANGELA Alonso under the supervision of Dr. Edgar. <Marcus Edgar - Last Filed: 12/20/19 15:01> Subjective: Patient had TIA few years ago. Admitted yesterday with mild sensory deficit, numbness and mild weakness on the left upper and lower extremity along with mild weakness. Patient also noticed some change in speech but it got resolved. His weakness has resolved. - Physical Exam Vitals/I&O's: Vital Signs Temp Pulse Resp BP Pulse Ox 97.9 F 62 16 133/74 H 96 12/20/19 13:50 12/20/19 13:50 12/20/19 13:50 12/20/19 13:50 12/20/19 13:50 Oxygen Flow Rate (L/min) 2 Oxygen Delivery Method Room Air Weight: 186 lb 8.177 oz Body Mass Index (BMI) 31.0 Finger Stick Blood Glucose 74 Intake and Output for Last 24 Hours 12/18/19 12/19/19 12/20/19 23:59 23:59 23:59 Intake Total 750 / 750 840 / 840 Output Total 600 / 600 400 / 400 Balance 150 / 150 440 / 440 General: Alert, Oriented x3, Cooperative HEENT: Atraumatic, PERRLA, EOMI, Normocephalic Neck: Supple, No JVD, Negative Carotid Bruits Lungs: Clear to auscultation, Normal air movement, No rhonchi, No wheeze, No rales Cardiovascular: Regular rate, Regular Rhythm, Normal S1, Normal S2, No murmurs Abdomen: Bowel Sounds Present, Soft, Non Tender, Non-Distended Extremities: No edema, Capillary Refill Less than 3 Seconds Skin: No rashes, No breakdown Musculoskeletal: No Tenderness to Palpation of Joints or Extremities Neurological: Cranial nerves II-XII grossly intact, Deep Tendon Reflexes 2+/4 and Symmetrical, Neuro grossly intact, - - Mild sensory changes left upper extremity and left face. NIHSS 1 for mild sensory change. Strength is 5/5 at major joints. No speech/language deficit. No dysarthria/dysphagia or visual change. Psych/Mental Status: Normal Affect, Appropriate Laboratory Results 12/19/19 19:13: WBC 6.2, RBC 3.71 L, Hgb 13.5, Hct 38.9 L, MCV 104.9 H, MCH 36.4 H, MCHC 34.7, RDW Std Deviation 45.1 H, RDW Coeff of Randall 11.9, Plt Count 136 L, MPV 11.2, Immature Gran % (Auto) 0.200, Neut % (Auto) 60.7, Lymph % (Auto) 26.0, Catron % (Auto) 11.1 H, Eos % (Auto) 1.4, Baso % (Auto) 0.6, Absolute Neuts (auto) 3.8, Absolute Lymphs (auto) 1.62, Nucleated RBC % 0 12/19/19 19:13: PT 15.8 H, INR 1.3, APTT 36.9 H 12/19/19 19:13: Sodium 139, Potassium 4.0, Chloride 105, Carbon Dioxide 27.0, Anion Gap 7, BUN 10, Creatinine 1.15, Estim Creat Clear Calc 47.00, Est GFR (MDRD) Af Amer 79, Est GFR (MDRD) Non-Af 65, BUN/Creatinine Ratio 8.7 L, Glucose 82, Calcium 8.6, Troponin I < 0.015 12/19/19 19:13: Magnesium 2.1 12/20/19 05:30: WBC 6.5, RBC 3.69 L, Hgb 13.3, Hct 37.8 L, MCV 102.4 H, MCH 36.0 H, MCHC 35.2, RDW Std Deviation 43.4, RDW Coeff of Randall 11.5 L, Plt Count 115 L, MPV 10.9, Immature Gran % (Auto) 0.500, Neut % (Auto) 66.0, Lymph % (Auto) 21.9, Catron % (Auto) 8.9, Eos % (Auto) 2.2, Baso % (Auto) 0.5, Absolute Neuts (auto) 4.3, Absolute Lymphs (auto) 1.42, Nucleated RBC % 0 12/20/19 05:30: Sodium 137, Potassium 3.8, Chloride 106, Carbon Dioxide 24.0, Anion Gap 7, BUN 14, Creatinine 0.93, Estim Creat Clear Calc 56.03, Est GFR (MDRD) Af Amer 101, Est GFR (MDRD) Non-Af 84, BUN/Creatinine Ratio 15.1, Glucose 104, Calcium 8.0 L, Total Bilirubin 0.70, AST 18, ALT 27, Alkaline Phosphatase 86, Total Protein 5.5 L, Albumin 2.9 L, Globulin 2.6, Albumin/Globulin Ratio 1.1, Triglycerides 113, Cholesterol 90, LDL Cholesterol 36, VLDL Cholesterol 23, HDL Cholesterol 31 L, TSH 2.31, Free T4 0.99 12/20/19 05:30: Hemoglobin A1c 5.3 Current Medications Acetaminophen (Tylenol) 650 mg PO Q6H PRN PRN PRN Reason: Pain Score 1-10/Temp > 100.7 F Al Hydroxide/Mg Hydroxide (Mylanta Ii) 30 ml PO Q6H PRN PRN PRN Reason: Gastric Burning Albuterol Sulfate (Ventolin Aerosols) 2.5 mg INHALATION Q2H PRN PRN PRN Reason: Dyspnea, wheezing Aspirin (Aspirin, Baby) 81 mg PO DAILY@0800 [facility] Last Admin: 12/20/19 10:00 Dose: 81 mg Documented by: Atorvastatin Calcium (Lipitor) 80 mg PO QHS [facility] Dextrose (D50w Syringe) 0 gm IV X1 PRN; Protocol PRN Reason: Hypoglycemia Famotidine (Pepcid) 20 mg PO BID [facility] Last Admin: 12/20/19 10:00 Dose: 20 mg Documented by: Glucagon () 1 mg IM .X1 PRN PRN Reason: Hypoglycemia Guaifenesin (Robitussin) 20 ml PO Q4H PRN PRN PRN Reason: COUGH Hydralazine HCl (Apresoline Iv) 5 mg IV Q30M PRN PRN Reason: to maintain BP goals Sodium Chloride () 1,000 mls @ 100 mls/hr IV .Q10H [facility] Last Admin: 12/19/19 22:25 Dose: 100 mls/hr Documented by: Labetalol HCl (Trandate) 10 - 20 mg IV Q10M PRN PRN PRN Reason: to maintain BP goals Lorazepam (Ativan) 1 mg IV X1 PRN PRN Reason: Before MRI Last Admin: 12/20/19 11:46 Dose: 1 mg Documented by: Magnesium Hydroxide (Milk Of Magnesia) 30 ml PO DAILY PRN PRN PRN Reason: Constipation Melatonin (Melatonin) 3 mg PO QHS PRN PRN PRN Reason: INSOMNIA Nitroglycerin (Nitrostat) 0.4 mg SUBLINGUAL Q5M PRN PRN Reason: CARDIAC/CHEST PAIN Ondansetron HCl (Zofran) 4 mg IV Q8H PRN PRN PRN Reason: NAUSEA/VOMITING Pantoprazole Sodium (Protonix) 40 mg PO DAILY [facility] Last Admin: 12/20/19 10:00 Dose: 40 mg Documented by: Prochlorperazine Edisylate (Compazine Iv) 5 mg IV Q4H PRN PRN PRN Reason: Breakthrough Nausea/Vomiting Psyllium Hydrophilic Mucilloid (Metamucil) 1 packet PO DAILY PRN PRN PRN Reason: Constipation Last Admin: 12/20/19 13:58 Dose: 1 packet Documented by: Rivaroxaban (Xarelto) 20 mg PO DAILYCM [facility] Last Admin: 12/20/19 10:00 Dose: 20 mg Documented by: Senna/Docusate Sodium (Senokot-S, Beverley-Colace) 2 tablet PO BID PRN PRN PRN Reason: Constipation Sodium Chloride () 10 - 40 ml IV UD PRN PRN Reason: SALINE FLUSH Sotalol HCl (Betapace (G)) 120 mg PO BID [facility] Last Admin: 12/20/19 10:00 Dose: 120 mg Documented by: Tamsulosin HCl (Flomax) 0.4 mg PO DAILY [facility] Last Admin: 12/20/19 10:00 Dose: 0.4 mg Documented by: Throat Lozenges (Cepacol Sore Throat Lozenge) 1 lozenge MUCOUS MEM Q2H PRN PRN PRN Reason: SORE THROAT Tramadol HCl (Ultram) 50 mg PO BID PRN PRN PRN Reason: Pain Score 1-10/10 Assessment/Plan This patient was seen in conjunction with Carly CHING. I have independently interviewed and examined the patient and reviewed pertinent history, examination findings, laboratory and plan of management. I have reviewed the note and agree with the documented findings with the few additional points. In brief, patient is admitted for acute CVA/TIA: CT brain was unremarkable. Echo EF 65%. LA mildly enlarged. No evidence of ASD. MRI brain showed old small infarct in left periventricular white matter but no acute infarct or ICH. MRA head no major vessel occlusion or hemodynamically significant stenosis. On aspirin and statin. SOC neurology consult as mentioned above. Blood pressure is controlled. On aspirin and statin. Patient has other chronic comorbidities which include coronary artery status post CABG and PCI, hypertension, dyslipidemia, paroxysmal A. fib on Xarelto and sotalol and GERD. I have discussed my assessment with Carly CHING and orders have been reviewed. Clinical Impression(s) from Imaging Studies Brain CT 12/19/19 19:30 IMPRESSION: No change. No acute abnormality. Mild atrophy and White matter disease. Left lacunar infarct. Chest X-Ray 12/19/19 19:55 IMPRESSION: No definite acute or significant abnormality seen. Brain MRI 12/20/19 08:00 IMPRESSION: 1. Chronic mild to moderate ischemic and involutional changes of the brain, as described above. 2. 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 3. No demonstrated acute infarct or intracranial hemorrhage. Head MRA 12/20/19 08:00 IMPRESSION: 1. There is no demonstrated aneurysm of the [place]. There is no major vessel occlusion or hemodynamically significant stenosis. Laboratory Results 12/19/19 19:13: WBC 6.2, RBC 3.71 L, Hgb 13.5, Hct 38.9 L, MCV 104.9 H, MCH 36.4 H, MCHC 34.7, RDW Std Deviation 45.1 H, RDW Coeff of Randall 11.9, Plt Count 136 L, MPV 11.2, Immature Gran % (Auto) 0.200, Neut % (Auto) 60.7, Lymph % (Auto) 26.0, Catron % (Auto) 11.1 H, Eos % (Auto) 1.4, Baso % (Auto) 0.6, Absolute Neuts (auto) 3.8, Absolute Lymphs (auto) 1.62, Nucleated RBC % 0 12/19/19 19:13: PT 15.8 H, INR 1.3, APTT 36.9 H 12/19/19 19:13: Sodium 139, Potassium 4.0, Chloride 105, Carbon Dioxide 27.0, Anion Gap 7, BUN 10, Creatinine 1.15, Estim Creat Clear Calc 47.00, Est GFR (MDRD) Af Amer 79, Est GFR (MDRD) Non-Af 65, BUN/Creatinine Ratio 8.7 L, Glucose 82, Calcium 8.6, Troponin I < 0.015 12/19/19 19:13: Magnesium 2.1 12/20/19 05:30: WBC 6.5, RBC 3.69 L, Hgb 13.3, Hct 37.8 L, MCV 102.4 H, MCH 36.0 H, MCHC 35.2, RDW Std Deviation 43.4, RDW Coeff of Randall 11.5 L, Plt Count 115 L, MPV 10.9, Immature Gran % (Auto) 0.500, Neut % (Auto) 66.0, Lymph % (Auto) 21.9, Catron % (Auto) 8.9, Eos % (Auto) 2.2, Baso % (Auto) 0.5, Absolute Neuts (auto) 4.3, Absolute Lymphs (auto) 1.42, Nucleated RBC % 0 12/20/19 05:30: Sodium 137, Potassium 3.8, Chloride 106, Carbon Dioxide 24.0, Anion Gap 7, BUN 14, Creatinine 0.93, Estim Creat Clear Calc 56.03, Est GFR (MDRD) Af Amer 101, Est GFR (MDRD) Non-Af 84, BUN/Creatinine Ratio 15.1, Glucose 104, Calcium 8.0 L, Total Bilirubin 0.70, AST 18, ALT 27, Alkaline Phosphatase 86, Total Protein 5.5 L, Albumin 2.9 L, Globulin 2.6, Albumin/Globulin Ratio 1.1, Triglycerides 113, Cholesterol 90, LDL Cholesterol 36, VLDL Cholesterol 23, HDL Cholesterol 31 L, TSH 2.31, Free T4 0.99 12/20/19 05:30: Hemoglobin A1c 5.3 Inpatient E&M: 15840 Subs Hosp L2
[2019-12-20] MEDS: Psyllium 1 PACKET PO (13:58)
[2019-12-20] MEDS: 0.9% Normal Saline 1,000 ML 100 ML IV (16:06)
--- NOTE | 2019-12-20 16:25 | NURSING ---
Updated on patient status over the phone at this time.
[2019-12-20] MEDS: Atorvastatin Calcium 80 MG Tablet PO (22:31)
[2019-12-21] MEDS: 0.9% Normal Saline 1,000 ML 100 ML IV (02:45)
[2019-12-21 03:00] VITALS: PULSE 66
[2019-12-21 04:00] VITALS: BP 147/73; PULSE 58; RESP 16; TEMP 36.4; O2SAT 98
[2019-12-21 07:00] VITALS: PULSE 52
[2019-12-21 07:09] VITALS: O2SAT 97
[2019-12-21 08:08] VITALS: BP 152/67; PULSE 58; RESP 16; TEMP 36.5; O2SAT 99
[2019-12-21] MEDS: Aspirin 81 MG TAB.CHEW PO (08:11)
[2019-12-21] MEDS: Rivaroxaban 20 MG Tablet PO (08:12)
[2019-12-21] MEDS: Sotalol Hydrochloride 80 MG Tablet 120 MG PO (08:12)
[2019-12-21] MEDS: Pantoprazole Sodium 40 MG Tablet PO (08:14)
[2019-12-21] MEDS: Tamsulosin HCl 0.4 MG Capsule PO (08:14)
--- NOTE | 2019-12-21 09:22 | PCM.DC ---
- Discharge Diagnoses Current Active Problems: Current Active and Chronic Problems (Last Reviewed 08/02/19 @ 13:[address] Barney Jasso MD) TIA (transient ischemic attack) (Acute) You will use the following diet at home:: Cardiac Discharge Activity: Return to Normal Activity Call your doctor if you observe: Shortness of breath, Dizziness, Fainting spells, Chest pain Allergies/Adverse Reactions: Allergies acetaminophen [From Percocet] Allergy (Verified 12/19/19 19:12) Other lisinopril Allergy (Verified 12/19/19 19:12) Unknown oxycodone [From Percocet] Allergy (Verified 12/19/19 19:12) Other pravastatin Allergy (Verified 12/19/19 19:12) Unknown Quinolones Allergy (Verified 12/19/19 19:12) Unknown pregabalin [From Lyrica] Adverse Reaction (Verified 12/19/19 19:12) Other Medications to take at Discharge Tamsulosin HCl [Flomax] 0.4 mg PO DAILY 05/23/13 Pantoprazole Sodium [Protonix] 40 mg PO DAILY 10/11/16 traMADol [Ultram] 50 mg PO BID PRN PRN 08/10/18 nitroglycerin 0.4 mg sublingual tablet 0.4 mg SUBLINGUAL Q5M PRN #30 tab 01/09/19 sotalol 120 mg tablet 120 mg PO BID #180 tab 12/03/19 Atorvastatin Calcium [Lipitor] 80 mg PO DAILY 12/19/19 Furosemide [Lasix] 20 mg PO DAILY PRN PRN 12/19/19 Rivaroxaban [Xarelto] 20 mg PO DAILY 12/19/19 Amlodipine [Norvasc] 5 mg PO DAILY #30 tab 12/21/19 The following prescriptions were given: Amlodipine [Norvasc] 5 mg PO DAILY #30 tab Transmission Status: Pending to [id number] Primary Care Physician: Jose Wolfe MD [Primary Care Provider] - Please follow up with your Primary Care Physician in: 1 Week Test Results: Test results from this visit will be discussed in further detail at your follow-up appointment, if applicable. Please Follow Up With: Valeriano Concepcion MD When: 2 Weeks Proposed Discharge Date: 12/21/19
--- NOTE | 2019-12-21 09:28 | PCM.DC.SUM ---
<Carly Hughes - Last Filed: 12/21/19 09:37> Discharge Date and Diagnosis Date of Admission: 12/19/19 Date of Discharge: 12/21/19 - Primary Discharge Diagnosis Acute Problems: Active Problems (Last Reviewed 08/02/19 @ 13:[address] Barney Jasso MD) 1. TIA 2. CAD s/p CABG and PCI 3. Hypertension 4. Hyperlipidemia 5. Paroxysmal atrial fibrillation 6. GERD - Secondary Discharge Diagnosis Chronic Problems: Chronic Problems (Last Reviewed 08/02/19 @ 13:[address] Barney Jasso MD) Atherosclerotic heart disease of [place] coronary artery without angina pectoris (Chronic) H/O coronary artery bypass surgery (Chronic 03/27/04) CABG X 3, ACOSTA to LAD, SVG to D1, SVG-RPDA 03/27/2004 History of coronary artery stent placement (Chronic 08/06/12) [id number] RCA w/ 3.5 x 12 mm Promus Stent 08/06/2012 Paroxysmal A-fib (Chronic) Essential (primary) hypertension (Chronic) HLD (hyperlipidemia) (Chronic) CVA (cerebral vascular accident) (Chronic 05/2018) Hospital Course and Treatment Imaging Results: Diagnostic Data Brain CT 12/19/19 19:30 IMPRESSION: No change. No acute abnormality. Mild atrophy and White matter disease. Left lacunar infarct. Electronically Signed: Martín Grimes MD at 20:14 EDT , Service support , Chest X-Ray 12/19/19 19:55 IMPRESSION: No definite acute or significant abnormality seen. Electronically Signed: Martín Grimes MD at 20:15 EDT , Service support , Brain MRI 12/20/19 08:00 IMPRESSION: 1. Chronic mild to moderate ischemic and involutional changes of the brain, as described above. 2. 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 3. No demonstrated acute infarct or intracranial hemorrhage. Electronically Signed: Matthias Carr MD at 14:06 EDT , Service support , Head MRA 12/20/19 08:00 IMPRESSION: 1. There is no demonstrated aneurysm of the pauma of [place]. There is no major vessel occlusion or hemodynamically significant stenosis. Electronically Signed: Matthias Carr MD at 14:09 EDT , Service support , Neck MRA 12/20/19 08:00 IMPRESSION: 1. Mild bilateral atherosclerotic stenosis. 2. No demonstrated occlusion or hemodynamically significant stenosis of the bilateral cervical carotid and vertebral arteries. Electronically Signed: Matthias Carr MD at 15:15 EDT , Service support , SOC neurology Operations: None Procedures: 2-D Echocardiogram Summary of Care Provided: The patient is a 79 year old M admitted 12/19/2019 due to left hand paresthesias, headache and transient dizziness. 1. TIA- CVA ruled out. MRI of brain showed chronic mild to moderate ischemic changes. 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 No acute infarct. Neck MRA shows mild bilateral stenosis. No occlusion or hemodynamically significant stenosis. Head MRA normal. Echocardiogram demonstrated an ejection fraction of 60%. SOC neurology consult obtained. Recommended to continue Xarelto and high-dose statin. Outpatient follow-up with neurology. 2. CAD s/p CABG and PCI-continue aspirin, Xarelto, statin. 3. [id number] systolically during admission. Continue home sotalol regimen. Additionally started on amlodipine 5 mg daily with further outpatient monitoring. 4. Hyperlipidemia-continue high dose statin. 5. Paroxysmal atrial fibrillation-continue sotalol, Xarelto. 6. GERD- continue PPI. General: Alert, Oriented x3, Cooperative HEENT: Atraumatic, PERRLA, EOMI, Normocephalic Neck: Supple, No JVD, Negative Carotid Bruits Lungs: Clear to auscultation, Normal air movement Cardiovascular: Regular rate, No murmurs Abdomen: Bowel Sounds Present, Soft, Non Tender, Non-Distended Extremities: No clubbing, No cyanosis, No edema, Capillary Refill Less than 3 Seconds Skin: No rashes, No breakdown Musculoskeletal: No Tenderness to Palpation of Joints or Extremities Neurological: Cranial nerves II-XII grossly intact, Neuro grossly intact Psych/Mental Status: Normal Affect, Appropriate Patient seen and examined prior to discharge. Physical assessment as noted above. Patient is stable for discharge with follow up recommendations as noted above. This patient was seen by TANGELA Alonso under the supervision of Dr. Edgar. - Physical Exam Vitals/I&O's: Vital Signs Temp Pulse Resp BP Pulse Ox 97.7 F L 58 L 16 152/67 H 99 12/21/19 08:08 12/21/19 08:08 12/21/19 08:08 12/21/19 08:08 12/21/19 08:08 Oxygen Flow Rate (L/min) 2 Oxygen Delivery Method Room Air Weight: 186 lb 8.177 oz Body Mass Index (BMI) 31.0 Finger Stick Blood Glucose 74 Intake and Output for Last 24 Hours 12/19/19 12/20/19 12/21/19 23:59 23:59 23:59 Intake Total 750 / 750 3068.33 / 3068.33 760.00 / 760.00 Output Total 600 / 600 1100 / 1100 950 / 950 Balance 150 / 150 1968.33 / 1968.33 -190.00 / -190.00 Current Medications Acetaminophen (Tylenol) 650 mg PO Q6H PRN PRN PRN Reason: Pain Score 1-10/Temp > 100.7 F Al Hydroxide/Mg Hydroxide (Mylanta Ii) 30 ml PO Q6H PRN PRN PRN Reason: Gastric Burning Albuterol Sulfate (Ventolin Aerosols) 2.5 mg INHALATION Q2H PRN PRN PRN Reason: Dyspnea, wheezing Amlodipine Besylate (Norvasc) 5 mg PO X1 ONE Stop: 12/21/19 09:28 Aspirin (Aspirin, Baby) 81 mg PO DAILY@0800 [facility] Last Admin: 12/21/19 08:11 Dose: 81 mg Documented by: Atorvastatin Calcium (Lipitor) 80 mg PO QHS [facility] Last Admin: 12/20/19 22:31 Dose: 80 mg Documented by: Dextrose (D50w Syringe) 0 gm IV X1 PRN; Protocol PRN Reason: Hypoglycemia Famotidine (Pepcid) 20 mg PO BID [facility] Last Admin: 12/20/19 22:31 Dose: 20 mg Documented by: Glucagon () 1 mg IM .X1 PRN PRN Reason: Hypoglycemia Guaifenesin (Robitussin) 20 ml PO Q4H PRN PRN PRN Reason: COUGH Hydralazine HCl (Apresoline Iv) 5 mg IV Q30M PRN PRN Reason: to maintain BP goals Sodium Chloride () 1,000 mls @ 100 mls/hr IV .Q10H [facility] Last Infusion: 12/21/19 08:14 Dose: 100 mls/hr Documented by: Labetalol HCl (Trandate) 10 - 20 mg IV Q10M PRN PRN PRN Reason: to maintain BP goals Lorazepam (Ativan) 1 mg IV X1 PRN PRN Reason: Before MRI Last Admin: 12/20/19 11:46 Dose: 1 mg Documented by: Magnesium Hydroxide (Milk Of Magnesia) 30 ml PO DAILY PRN PRN PRN Reason: Constipation Melatonin (Melatonin) 3 mg PO QHS PRN PRN PRN Reason: INSOMNIA Nitroglycerin (Nitrostat) 0.4 mg SUBLINGUAL Q5M PRN PRN Reason: CARDIAC/CHEST PAIN Ondansetron HCl (Zofran) 4 mg IV Q8H PRN PRN PRN Reason: NAUSEA/VOMITING Pantoprazole Sodium (Protonix) 40 mg PO DAILY [facility] Last Admin: 12/21/19 08:14 Dose: 40 mg Documented by: Prochlorperazine Edisylate (Compazine Iv) 5 mg IV Q4H PRN PRN PRN Reason: Breakthrough Nausea/Vomiting Psyllium Hydrophilic Mucilloid (Metamucil) 1 packet PO DAILY PRN PRN PRN Reason: Constipation Last Admin: 12/20/19 13:58 Dose: 1 packet Documented by: Rivaroxaban (Xarelto) 20 mg PO DAILYCM [facility] Last Admin: 12/21/19 08:12 Dose: 20 mg Documented by: Senna/Docusate Sodium (Senokot-S, Beverley-Colace) 2 tablet PO BID PRN PRN PRN Reason: Constipation Sodium Chloride () 10 - 40 ml IV UD PRN PRN Reason: SALINE FLUSH Sotalol HCl (Betapace (G)) 120 mg PO BID [facility] Last Admin: 12/21/19 08:12 Dose: 120 mg Documented by: Tamsulosin HCl (Flomax) 0.4 mg PO DAILY [facility] Last Admin: 12/21/19 08:14 Dose: 0.4 mg Documented by: Throat Lozenges (Cepacol Sore Throat Lozenge) 1 lozenge MUCOUS MEM Q2H PRN PRN PRN Reason: SORE THROAT Tramadol HCl (Ultram) 50 mg PO BID PRN PRN PRN Reason: Pain Score 1-04/26 Discharge Diet: Low fat/ Low Cholesterol Discharge Activity: Return to Normal Activity Call your doctor if you observe: Shortness of breath, Dizziness, Fainting spells, Chest pain Home Medications: Medications to take at Discharge Tamsulosin HCl [Flomax] 0.4 mg PO DAILY 05/23/13 Pantoprazole Sodium [Protonix] 40 mg PO DAILY 10/11/16 traMADol [Ultram] 50 mg PO BID PRN PRN 08/10/18 nitroglycerin 0.4 mg sublingual tablet 0.4 mg SUBLINGUAL Q5M PRN #30 tab 01/09/19 sotalol 120 mg tablet 120 mg PO BID #180 tab 12/03/19 Atorvastatin Calcium [Lipitor] 80 mg PO DAILY 12/19/19 Furosemide [Lasix] 20 mg PO DAILY PRN PRN 12/19/19 Rivaroxaban [Xarelto] 20 mg PO DAILY 12/19/19 Amlodipine [Norvasc] 5 mg PO DAILY #30 tab 12/21/19 Following Prescrptions Were Given to Patient: Amlodipine [Norvasc] 5 mg PO DAILY #30 tab Transmission Status: Received by [id number] Primary Care Physician: Jose Wolfe MD [Primary Care Provider] - Please follow up with your Primary Care Physician in: 1 Week Please Follow Up With: Valeriano Concepcion MD When: 2 Weeks Disposition: Home Minutes spent on discharge:: 35 Patient Condition:: Stable Medical Necessity - Tobacco Use Smoking Status: Never smoker Tobacco Use: Non-smoker Meaningful Use Info Meaningful Use Diagnoses (Choose all that apply): None applicable <Marcus Edgar - Last Filed: 12/21/19 15:27> Discharge Date and Diagnosis - Secondary Discharge Diagnosis Chronic Problems: Chronic Problems (Last Reviewed 08/02/19 @ 13:[address] Barney Jsaso MD) Atherosclerotic heart disease of [place] coronary artery without angina pectoris (Chronic) H/O coronary artery bypass surgery (Chronic 03/27/04) CABG X 3, ACOSTA to LAD, SVG to D1, SVG-RPDA 03/27/2004 History of coronary artery stent placement (Chronic 08/06/12) [id number] RCA w/ 3.5 x 12 mm Promus Stent 08/06/2012 Paroxysmal A-fib (Chronic) Essential (primary) hypertension (Chronic) HLD (hyperlipidemia) (Chronic) CVA (cerebral vascular accident) (Chronic 05/2018) Hospital Course and Treatment Summary of Care Provided: This patient was seen in conjunction with Carly CHING. I have independently interviewed and examined the patient and reviewed pertinent history, examination findings, laboratory and plan of management. I have reviewed the note and agree with the documented findings with the few additional points. In brief, patient is admitted for acute CVA/TIA: CT brain was unremarkable. Echo EF 65%. LA mildly enlarged. No evidence of ASD. MRI brain showed old small infarct in left periventricular white matter but no acute infarct or ICH. MRA head no major vessel occlusion or hemodynamically significant stenosis. On aspirin and statin. SOC neurology consult as mentioned above. Blood pressure is controlled. Fasting profile HDL 31 otherwise within normal limit. TSH and free T4 normal range. Neurologist recommended only to continue Xarelto as added aspirin does not give any extra benefit but more bleeding complication. Patient has other chronic comorbidities which include coronary artery status post CABG and PCI, hypertension, dyslipidemia, paroxysmal A. fib on Xarelto and sotalol and GERD. Discharge medication reconciliation done. Discharge follow-up instructions completed. Discharge process discussed with the patient and all questions were answered to patient's satisfaction. Total time spent, exact 35 minutes on discharge meds reconciliation, examination, coordination of care with nurses and ancillary staff, review of imaging and blood test and discussion with the patient on follow-up instructions I have discussed my assessment with Carly CHING and orders have been reviewed. Clinical Impression(s) from Imaging Studies Brain CT 12/19/19 19:30 IMPRESSION: No change. No acute abnormality. Mild atrophy and White matter disease. Left lacunar infarct. Chest X-Ray 12/19/19 19:55 IMPRESSION: No definite acute or significant abnormality seen. Brain MRI 12/20/19 08:00 IMPRESSION: 1. Chronic mild to moderate ischemic and involutional changes of the brain, as described above. 2. 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 3. No demonstrated acute infarct or intracranial hemorrhage. Head MRA 12/20/19 08:00 IMPRESSION: 1. There is no demonstrated aneurysm of the pauma of [place]. There is no major vessel occlusion or hemodynamically significant stenosis. [] Objective: Seen and examined. Vital signs are stable. Heart rate controlled. Blood pressure in permissive hypertensive range. On physical exam General: Alert, Oriented x3, Cooperative HEENT: Atraumatic, PERRLA, EOMI, Normocephalic Neck: Supple, No JVD, Negative Carotid Bruits Lungs: Clear to auscultation, Normal air movement, No rhonchi, No wheeze, No rales Cardiovascular: Regular rate, Regular Rhythm, Normal S1, Normal S2, No murmurs Abdomen: Bowel Sounds Present, Soft, Non Tender, Non-Distended Extremities: No edema, Capillary Refill Less than 3 Seconds Skin: No rashes, No breakdown Musculoskeletal: No Tenderness to Palpation of Joints or Extremities Neurological: Cranial nerves II-XII grossly intact, Deep Tendon Reflexes 2+/4 and Symmetrical, Neuro grossly intact, NIH stroke scale 0. Strength is 5/5 at major joints. No speech/language deficit. No dysarthria/dysphagia or visual change. Psych/Mental Status: Normal Affect, Appropriate - Physical Exam Vitals/I&O's: Vital Signs Temp Pulse Resp BP Pulse Ox 97.7 F L 58 L 16 152/67 H 99 12/21/19 10:45 12/21/19 10:45 12/21/19 10:45 12/21/19 10:45 12/21/19 10:45 Oxygen Flow Rate (L/min) 2 Oxygen Delivery Method Room Air Weight: 186 lb 8.177 oz Body Mass Index (BMI) 31.0 Finger Stick Blood Glucose 74 Intake and Output for Last 24 Hours 12/19/19 12/20/19 12/21/19 23:59 23:59 23:59 Intake Total 750 / 750 3068.33 / 3068.33 760.00 / 760.00 Output Total 600 / 600 1100 / 1100 950 / 950 Balance 150 / 150 1968.33 / 1968.33 -190.00 / -190.00 Inpatient E&M: 16892 Disch Hosp
--- NOTE | 2019-12-21 10:04 | CASEMGMT ---
RN CM FEED BLENDER CM to room to meet with patient for initial transition planning/care coordination assessment. NIVIA COLE introduced self and role at [facility]. Pt voices understanding and consents to assessment at this time. Pt sitting up in chair in room in no distress at this time. Pt is A/O at this time and answers all questions appropriately. Care providers, pharmacy, and demographics verified/updated at this time. PCP: Dr Wolfe Specialists: Dr Jasso-cardiology Preferred Pharmacy: [facility] Insurance: [facility], [employer] Prescription Benefit: Yes Living Will/HPOA: Has both LW and Healthcare POA, who is his . Pt made aware LW is on file @ [facility] but POA is not. LNOK: , Ica Living Arrangements: Lives w/ in 2-story home w/basement. Usually ambulates independently, but does use white cane when needed on uneven surfaces. /pt share home mgmt tasks. manages his medications Transportation: . states no transportation concerns at this time. DME: States has the following DME: rails/grab bars, white cane for impaired vision, WW. Has other various adaptive equipment for visual impairment. Pt states no need for further DME at this time. HHC/SNF: No history of either and no needs identified. PT/OT notes reviewed and no additional therapy recommended. ST notes reviewed and no additional therapy recommended. Pt wishes to return home and states has no concerns with going home at time of discharge. CM to follow for any discharge planning/needs. Pt voices no concerns/needs at this time. Advised pt to ask for CM if any further questions/concerns/needs arise. Voices understanding. Pt given [facility] fact sheet with contact # so he/ can contact to see if they are able to provide any assistance or w/any adaptive equip. Pt voices understanding. PLAN: Home w/ and discharge plans in place. Ja LABOY RN, CM
--- NOTE | 2019-12-21 10:39 | PHA.DC.MC ---
Pharmacy Service has performed discharge medication reconciliation and counseling for this patient. The patient's discharge medication list was reviewed for discrepancies and discrepancies were resolved. The patient was counseled on the following discharge medications and changes in medications for homegoing were reviewed. 1. AMLODPINE The Reason for Use, instructions for use, and potential side effects were reviewed for all new medications. The patient's questions regarding all of their medications were answered. The patient was able to verbally demonstrate an understanding of their discharge medications. NOTE: Patient was also asking additional questions about his other home medications including Xarelto, sotalol. All questions answered at this time. Home Medications Tamsulosin HCl [Flomax] 0.4 mg PO DAILY 05/23/13 Pantoprazole Sodium [Protonix] 40 mg PO DAILY 10/11/16 traMADol [Ultram] 50 mg PO BID PRN PRN 08/10/18 nitroglycerin 0.4 mg sublingual tablet 0.4 mg SUBLINGUAL Q5M PRN #30 tab 01/09/19 sotalol 120 mg tablet 120 mg PO BID #180 tab 12/03/19 Atorvastatin Calcium [Lipitor] 80 mg PO DAILY 12/19/19 Furosemide [Lasix] 20 mg PO DAILY PRN PRN 12/19/19 Rivaroxaban [Xarelto] 20 mg PO DAILY 12/19/19 Amlodipine [Norvasc] 5 mg PO DAILY #30 tab 12/21/19
[2019-12-21 10:45] VITALS: BP 152/67; PULSE 58; RESP 16; TEMP 36.5; O2SAT 99
[2019-12-21] MEDS: amLODIPine 5 MG Tablet PO (10:45)
== END 2019-12-21 10:49 | disposition home or self-care (01) | DRG 69 ==
LOC: ED 20:46 → PCU 23:10
PROVIDERS: Admitting Provider Family Medicine; Emergency Provider Emergency Medicine; PCP Internal Medicine; Referring Provider Family Medicine; Visit Provider Internal Medicine
DX: G45.9 Transient cerebral ischemic attack, unspecified (principal); I25.10 Atherosclerotic heart disease of native coronary artery without angina pectoris; Z95.1 Presence of aortocoronary bypass graft; I10 Essential (primary) hypertension; E78.5 Hyperlipidemia, unspecified; I48.0 Paroxysmal atrial fibrillation; K21.9 Gastro-esophageal reflux disease without esophagitis; H54.8 Legal blindness, as defined in USA; Z79.02 Long term (current) use of antithrombotics/antiplatelets; Z86.73 Personal history of transient ischemic attack (TIA), and cerebral infarction without residual deficits; Z95.5 Presence of coronary angioplasty implant and graft; Z87.891 Personal history of nicotine dependence; Z79.899 Other long term (current) drug therapy
CPT/HCPCS: 36415; 70450; 70544; 70547; 70551; 71045; 80048; 80053; 80061; 83036; 83735; 84439; 84443; 84484; 85025; 85610; 85730; 92526; 92610; 93005; 93306; 94762; 95819; 97110; 97162; 97166; 97530; 97802; 99251; 99285; J7030; Q9957; A4216; C8929; G0463

== ENCOUNTER → 2020-02-07 | Outpatient (CLI) | payer MEDICARE, OTHER, SELFPAY ==
[2020-02-07 11:15] VITALS: BMI 31.6
[2020-02-07 13:26] LABS: Vitamin B12 355 pg/mL (211-911)
== END | disposition home or self-care (01) ==
LOC: LAB 12:27
PROVIDERS: PCP Internal Medicine; Referring Provider Nurse Practitioner Family; Visit Provider Nurse Practitioner Family
DX: D53.9 Nutritional anemia, unspecified (principal)
CPT/HCPCS: 36415; 82607; 82746

== ENCOUNTER 2020-09-15 10:18 | Outpatient (RCR) | payer MEDICARE, OTHER, SELFPAY ==
[2020-04-15 09:22] VITALS: BMI 31.6
== END 2020-09-15 23:59 ==
LOC: IMMUN 10:18
PROVIDERS: PCP Internal Medicine; Referring Provider Family Medicine; Visit Provider Family Medicine
DX: Z23 Encounter for immunization (principal)
CPT/HCPCS: 0011A; 0012A

== ENCOUNTER → 2020-09-16 16:05 | Outpatient (CLI) | payer MEDICARE, OTHER, SELFPAY ==
[2020-09-16 13:29] VITALS: BMI 32.5
[2020-09-16 17:14] LABS: BNP,B-Type NATRIURETIC PEPTIDE 154.9 pg/mL (0-100)
== END ==
PROVIDERS: PCP Internal Medicine; Referring Provider Internal Medicine Cardiovascular Disease; Visit Provider Internal Medicine Cardiovascular Disease
DX: I25.10 Atherosclerotic heart disease of native coronary artery without angina pectoris (principal)
CPT/HCPCS: 36415; 83880

== ENCOUNTER → 2020-10-08 10:27 | Outpatient (CLI) | payer MEDICARE, OTHER, SELFPAY ==
[2020-09-16 13:29] VITALS: BMI 32.5
[2020-10-08 11:16] LABS: Anion Gap 3 (5-15); BUN 10 mg/dL (7-18); BUN/Creat Ratio 8.3 RATIO (10-20); Calcium,Total 8.8 mg/dL (8.5-10.1); Chloride 101 mmol/L (98-107); EST Glomerular Filtration Rate 62 mL/min (>60); Est Glom Filt Rate - Afr Amer 75 mL/min (>60); Glucose 144 mg/dL (74-106); Potassium 4.3 mmol/L (3.5-5.1); Sodium Level 136 mmol/L (136-145)
== END ==
PROVIDERS: PCP Internal Medicine; Referring Provider Internal Medicine Cardiovascular Disease; Visit Provider Internal Medicine Cardiovascular Disease
DX: I25.10 Atherosclerotic heart disease of native coronary artery without angina pectoris (principal); I48.0 Paroxysmal atrial fibrillation; I11.0 Hypertensive heart disease with heart failure; I50.30 Unspecified diastolic (congestive) heart failure; Z95.1 Presence of aortocoronary bypass graft; Z95.5 Presence of coronary angioplasty implant and graft
CPT/HCPCS: 36415; 80048

== ENCOUNTER → 2021-12-25 | Outpatient (CLI) | payer MEDICARE, OTHER, SELFPAY ==
[2021-12-25 12:37] LABS: Hematocrit 36.7 % (40-54); Hemoglobin 12.6 g/dL (13.0-16.5); Mean Corp Hgb Conc 34.3 g/dL (32-36); Mean Corpuscular Volume 98.9 fL (80-94); Mean Platelet Vol. 11.4 fl (6.2-12.0); Platelet Count 139 K/mm3 (150-450); RBC Distribution Width CV 12.4 % (11.6-14.6); RBC Distribution Width SD 44.8 fl (35.1-43.9); Red Blood Count 3.71 M/mm3 (4.6-6.2); White Blood Count 5.3 K/mm3 (4.4-11.0)
[2021-12-25 13:09] LABS: ALB/GLOB Ratio 1.2 RATIO (0.9-2.4); AST(SGOT) 20 U/L (15-37); Alanine Aminotransfer ALT/SGPT 28 U/L (16-61); Albumin, Serum 3.4 g/dL (3.2-5.0); Alkaline Phosphatase 78 U/L (45-117); BUN 13 mg/dL (7-18); BUN/Creat Ratio 11.2 RATIO (10-20); Calcium,Total 8.4 mg/dL (8.5-10.1); Chloride 106 mmol/L (98-107); Cholesterol 86 mg/dL (200); Creatinine, Serum 1.16 mg/dL (0.70-1.30); EST Glomerular Filtration Rate 64 mL/min (>60); Est Glom Filt Rate - Afr Amer 78 mL/min (>60); Globulin 2.8 g/dL (2.2-4.2); Glucose 102 mg/dL (74-106); Potassium 4.4 mmol/L (3.5-5.1); Protein, Total 6.2 g/dL (6.4-8.2); Sodium Level 138 mmol/L (136-145); Triglycerides 97 mg/dL
[2021-12-25 13:10] LABS: Anion Gap 6 (5-15); High Density Lipoprotein 35 mg/dL; Thyroid Stim Hormone (TSH) 2.57 uIU/mL (0.358-3.74); Very Low Density Lipoprotein 19 mg/dL (5-40)
== END | disposition home or self-care (01) ==
LOC: LAB 11:30
PROVIDERS: PCP Internal Medicine; Referring Provider Psychiatry & Neurology Neurology; Visit Provider Psychiatry & Neurology Neurology
DX: I25.10 Atherosclerotic heart disease of native coronary artery without angina pectoris (principal); I48.0 Paroxysmal atrial fibrillation; G45.9 Transient cerebral ischemic attack, unspecified
CPT/HCPCS: 36415; 80053; 80061; 84443; 85027

== ENCOUNTER → 2022-01-01 | Outpatient (CLI) | payer MEDICARE, OTHER, SELFPAY ==
--- NOTE | 2022-01-01 12:48 | MRI_ITS ---
EXAM: MR HEAD WITHOUT AND WITH INTRAVENOUS CONTRAST CLINICAL INDICATION: TIA -- Triple bypass. TECHNIQUE: Multiplanar and multisequence MR images of the brain were obtained without and with intravenous contrast. This report was created using [employer] report [employer] technology. CONTRAST: 17mL IV Dotarem COMPARISON: December 20, 2019 FINDINGS: BRAIN AND EXTRA-AXIAL SPACES: Old lacunar infarct within the left basal ganglion again noted. Increased T2 signal intensity within the cerebral white matter suggestive of chronic microvascular change. No abnormal contrast enhancement. No intra- or extra-axial hemorrhage. No intracranial mass or mass effect. Posterior fossa structures are unremarkable. Ventricles are appropriate for age. No hydrocephalus. Basal cisterns are patent. SELLA: Unremarkable. Normal sella turcica, pituitary gland, infundibular stalk, optic chiasm and hypothalamus. AUDITORY SYSTEM: Unremarkable. The internal auditory canals are patent. BONES/JOINTS: Unremarkable. No discrete lytic or blastic abnormalities. SINUSES: Unremarkable as visualized. Clear. MASTOID AIR CELLS: Unremarkable as visualized. Clear. ORBITS: Unremarkable as visualized. Both globes, extraocular muscles, optic nerves and retrobulbar fat appear unremarkable. VASCULATURE: Unremarkable as visualized. Normal flow voids in the major intracranial circulation. MRI/Brain W/WO Contrast IMPRESSION: 1. No acute intracranial abnormality. 2. Stable chronic ischemic changes. Electronically Signed: Naeem Dyer MD at 14:43 EDT ,
== END | disposition home or self-care (01) ==
LOC: MRI 12:29
PROVIDERS: PCP Internal Medicine; Referring Provider Psychiatry & Neurology Neurology; Visit Provider Psychiatry & Neurology Neurology
DX: G45.9 Transient cerebral ischemic attack, unspecified (principal)
CPT/HCPCS: 70553; A9581

== ENCOUNTER → 2022-01-20 | Outpatient (CLI) | payer MEDICARE, OTHER, SELFPAY ==
--- NOTE | 2022-01-20 12:41 | CDU_ITS ---
Reason For Study: TIA, CVA, amaurosis fugax Rt. Velocities/BP Lt. Velocities/BP Prox CCA 81.2/9.5 cm/sec. Prox CCA 110.2/21.2 cm/sec. Mid CCA 63.0/8.2 cm/sec. Mid CCA 102.5/20.1 cm/sec. Dist CCA 68.2/14.7 cm/sec. Dist CCA 83.8/12.4 cm/sec. Prox ICA 79.0/13.9 cm/sec. Prox ICA 81.6/11.3 cm/sec. Mid ICA 99.8/17.6 cm/sec. Mid ICA 91.5/30.0 cm/sec. Dist ICA 69.1/18.8 cm/sec. Dist ICA 70.6/20.1 cm/sec. Rt. ICA/CCA = 1.6. Lt. ICA/CCA = .9. Prox ECA 154.0/7.9 cm/sec. Prox ECA 78.3/6.9 cm/sec. Rt. Vert. 34.4/11.3 cm/sec. Lt. Vert. 35.5/9.1 cm/sec. Right Extracranial There is homogeneous, smooth atherosclerotic plaque noted in the right common carotid artery. There is heterogeneous, irregular atherosclerotic plaque noted in the right internal carotid artery. There is heterogeneous, irregular atherosclerotic plaque noted in the right external carotid artery. Antegrade flow is noted in the right vertebral artery. Left Extracranial There is homogeneous, smooth atherosclerotic plaque noted in the left common carotid artery. There is heterogeneous, irregular atherosclerotic plaque noted in the left internal carotid artery. There is intimal thickening but no significant atherosclerotic plaque noted in the left external carotid artery. Antegrade flow is noted in the left vertebral artery. Procedure Carotid Duplex 99630. This is a Carotid Duplex examination using B-mode, color flow and specral Doppler. The exam was diagnostic. Exam performed in department. VL/Carotid Duplex Ultrasound Interpretation Summary Minimal irregular plaque at the proximal right internal carotid artery with les s than 50% stenosis Less than 50% stenosis right external carotid artery Irregular plaque at the proximal left internal carotid artery with less than 50 % stenosis Less than 50% stenosis left external carotid artery Patent and antegrade vertebral arteries bilaterally No change from a previous examination of November 15, 2017 Ordering Physician: Valeriano Concepcion Performed By: Mark Espinoza RVT
== END | disposition home or self-care (01) ==
LOC: CVS 12:41
PROVIDERS: PCP Internal Medicine; Referring Provider Psychiatry & Neurology Neurology; Visit Provider Psychiatry & Neurology Neurology
DX: I65.23 Occlusion and stenosis of bilateral carotid arteries (principal); Z86.73 Personal history of transient ischemic attack (TIA), and cerebral infarction without residual deficits
CPT/HCPCS: 93880

== ENCOUNTER → 2022-03-11 | Outpatient (CLI) | payer MEDICARE, OTHER, SELFPAY ==
--- NOTE | 2022-03-11 10:02 | RAD_ITS ---
STUDY: X-RAY CHEST REASON FOR EXAM: Male, 81 years old. Fever and cough TECHNIQUE: PA and lateral views of the chest. COMPARISON: 12/19/2019 FINDINGS: The lungs are clear and expanded. There is no demonstrated pleural abnormality. Sternal cerclage wires and vascular clips are present from a prior sternotomy and coronary artery bypass graft procedure (CABG). Normal mediastinum and britany. Normal visualized pulmonary arteries. Normal visualized aortic arch and descending thoracic aorta. Normal visualized thoracic spine. Normal visualized ribs, clavicles, and shoulders. There is no demonstrated abnormality of the visualized soft tissue structures of the upper abdomen. RAD/Chest PA and Lateral IMPRESSION: No acute pulmonary process, no interval change Electronically Signed: Nirav Diaz MD at 8:31 EDT ,
[2022-03-11 10:52] LABS: Hematocrit 34.8 % (40-54); Hemoglobin 11.4 g/dL (13.0-16.5); Mean Corp Hgb Conc 32.8 g/dL (32-36); Mean Corpuscular Hgb 31.8 pg (27.0-32.0); Mean Corpuscular Volume 97.2 fL (80-94); Mean Platelet Vol. 10.8 fl (6.2-12.0); Platelet Count 149 K/mm3 (150-450); RBC Distribution Width CV 12.9 % (11.6-14.6); RBC Distribution Width SD 45.9 fl (35.1-43.9); Red Blood Count 3.58 M/mm3 (4.6-6.2)
[2022-03-11 11:10] LABS: BNP,B-Type NATRIURETIC PEPTIDE 153.8 pg/mL (0-100)
[2022-03-11 11:11] LABS: Anion Gap 6 (5-15); BUN 17 mg/dL (7-18); BUN/Creat Ratio 14.3 RATIO (10-20); Calcium,Total 8.8 mg/dL (8.5-10.1); Chloride 102 mmol/L (98-107); Creatinine, Serum 1.19 mg/dL (0.70-1.30); EST Glomerular Filtration Rate 62 mL/min (>60); Est Glom Filt Rate - Afr Amer 75 mL/min (>60); Glucose 140 mg/dL (74-106); Potassium 4.6 mmol/L (3.5-5.1); Sodium Level 135 mmol/L (136-145)
== END | disposition home or self-care (01) ==
LOC: LAB 09:51
PROVIDERS: PCP Internal Medicine; Referring Provider Nurse Practitioner Family; Visit Provider Nurse Practitioner Family
DX: R06.02 Shortness of breath (principal); I50.30 Unspecified diastolic (congestive) heart failure; I48.0 Paroxysmal atrial fibrillation; I25.10 Atherosclerotic heart disease of native coronary artery without angina pectoris; Z95.1 Presence of aortocoronary bypass graft
CPT/HCPCS: 36415; 71046; 80048; 83880; 85027

== ENCOUNTER → 2022-03-19 | Outpatient (CLI) | payer MEDICARE, OTHER, SELFPAY ==
[2022-03-19 13:43] LABS: Anion Gap 6 (5-15); BUN 21 mg/dL (7-18); BUN/Creat Ratio 15.3 RATIO (10-20); Chloride 103 mmol/L (98-107); Creatinine, Serum 1.37 mg/dL (0.70-1.30); EST Glomerular Filtration Rate 53 mL/min (>60); Est Glom Filt Rate - Afr Amer 64 mL/min (>60); Glucose 97 mg/dL (74-106); Potassium 4.4 mmol/L (3.5-5.1); Sodium Level 137 mmol/L (136-145)
== END | disposition home or self-care (01) ==
LOC: LAB 12:06
PROVIDERS: PCP Internal Medicine; Referring Provider Nurse Practitioner Gerontology; Visit Provider Nurse Practitioner Gerontology
DX: R06.02 Shortness of breath (principal)
CPT/HCPCS: 36415; 80048

== ENCOUNTER → 2022-03-31 | Outpatient (CLI) | payer MEDICARE, OTHER, SELFPAY ==
--- NOTE | 2022-03-31 13:22 | ECHOCS_ITS ---
Reason For Study: Dyspnea/SOB, Chest tightness Procedure This was a 2D Doppler, Color Flow transthoracic echocardiogram. Contrast injection was performed. Exam performed in department. Left Ventricle Normal LV size. Mild concentric left ventricular hypertrophy. Left ventricular systolic function is normal. The estimated ejection fraction is 60 %. No regional wall motion abnormalities noted. Right Ventricle Normal RV size. Normal systolic function. Atria Normal left atrium. Normal right atrium. Mitral Valve Mild diffuse mitral valve thickening. Mild (1+) eccentric mitral valve insufficiency. Tricuspid Valve Normal tricuspid valve. Mild tricuspid valve insufficiency. Pulmonary artery systolic pressure is 23 mmHg. Aortic Valve The aortic valve is not well visualized. Pulmonic Valve The pulmonic valve is not well visualized. Great Vessels Normal aortic root. The pulmonary artery is normal size. Normal inferior vena cava. Pericardium/Pleural No pericardial effusion. Medication Diluted definity 3ml given slow IV push to enhance endocardial definition. MMode/2D Measurements & Calculations LVIDd: 4.4 cm IVSd: 1.3 cm Ao root diam: 3.4 cm LVIDs: 2.9 cm LVPWd: 1.3 cm RVDd: 3.4 cm FS: 33.8 % LAV(MOD-bp): 49.5 ml LVAd ap4: 25.7 cm2 SV(MOD-sp4): 50.1 ml LAV(MOD-bp) Indexed: 25.8 ml/m2 LVLd ap4: 7.1 cm LAV(MOD-sp2): 38.4 ml EDV(MOD-sp4): 76.9 ml LAV(MOD-sp4): 61.0 ml EDV(sp4-el): 78.7 ml LVAs ap4: 13.6 cm2 LVLs ap4: 6.1 cm ESV(MOD-sp4): 26.8 ml ESV(sp4-el): 25.9 ml EF(MOD-sp4): 65.2 % EF(sp4-el): 67.1 % SV(sp4-el): 52.9 ml LA A4 area: 21.9 cm2 LA dimension(2D): 5.1 cm RA A4 area: 12.8 cm2 Doppler Measurements & Calculations MV E max kj: 74.8 cm/sec Lat Peak E' Kj: 7.6 cm/sec Med Peak E' Kj: 5.2 cm/sec MV A max kj: 54.3 cm/sec E/E' lat: 9.9 E/E' med: 14.4 MV E/A: 1.4 Ao V2 max: 91.5 cm/sec LV V1 max: 70.7 cm/sec PA V2 max: 113.2 cm/sec Ao max P.3 mmHg LV V1 max P.0 mmHg Ao V2 mean: 60.8 cm/sec Ao mean P.6 mmHg Ao V2 VTI: 18.4 cm TR max kj: 227.5 cm/sec TR max P.7 mmHg ECHO/Echo Complete W/ Contrast Interpretation Summary Normal LV size. Left ventricular systolic function is normal. The estimated ejection fraction is 60 %. Mild concentric left ventricular hypertrophy. Contrast injection was performed. Ordering Physician: Marian Ko Referring Physician: Jose Wolfe Performed By: Adelaide Bauer RDCS, RVT
== END | disposition home or self-care (01) ==
PROVIDERS: PCP Internal Medicine; Referring Provider Nurse Practitioner Gerontology; Visit Provider Nurse Practitioner Gerontology
DX: R06.02 Shortness of breath (principal)
CPT/HCPCS: 93306; Q9957; A4216; C8929

== ENCOUNTER → 2022-05-24 | Outpatient (CLI) | payer MEDICARE, OTHER, SELFPAY ==
[2022-05-24 13:54] LABS: Troponin-I HS 9 pg/mL (3.0-78.0)
== END | disposition home or self-care (01) ==
PROVIDERS: PCP Internal Medicine; Referring Provider Nurse Practitioner Family; Visit Provider Nurse Practitioner Family
DX: R07.89 Other chest pain (principal)
CPT/HCPCS: 36415; 84484

== ENCOUNTER → 2022-06-04 | Outpatient (CLI) | payer MEDICARE, OTHER, SELFPAY ==
--- NOTE | 2022-06-07 13:38 | STRESSREP ---
Stress Test Report Pharmacologic myocardial perfusion stress test. 82-year-old man with a history of chest pain. Stress protocol: Resting EKG demonstrates sinus rhythm with a rate of 57 bpm normal intervals are noted resting blood pressure is 118/62 mmHg. 0.4 mg of regadenoson was infused per usual protocol followed by rapid intravenous saline flush injection continuous EKG monitoring was performed. The maximum heart rate attained was 74 bpm which was 53% of max impacted heart rate the maximum workload was 1 metabolic equivalent. At rest there were no ST or T wave changes noted to suggest abnormal flow reserve and at peak infusion nonspecific ST changes were noted we did not meet the criteria for ischemia. No clinical angina was noted. The maximum heart rate was 74 bpm with a workload of 1 metabolic equivalent. Myocardial perfusion protocol. 9.6 mCi of technetium 99m sestamibi was injected at rest. 0.4 mg of regadenoson was infused per usual protocol. At peak infusion 31.9 mCi of technetium 99m sestamibi was injected stress images were obtained stress and rest images were reconstructed in comparing the short axis vertical long and horizontal long axis. Gated images were also obtained Perfusion SPECT analysis: Review of the stress images demonstrate normal uptake of tracer noted in all areas of the myocardium. The resting images similar demonstrate normal uptake of tracer noted in all areas of the myocardium. No areas of reversibility are noted to suggest ischemia and no previous infarct is noted. Gated SPECT analysis: The gated ejection fraction is 72%. Conclusion: Normal pharmacologic myocardial perfusion stress test. Preserved ejection fraction.
== END | disposition home or self-care (01) ==
LOC: CVS 06:20
PROVIDERS: PCP Internal Medicine; Visit Provider Nurse Practitioner Family
DX: R07.9 Chest pain, unspecified (principal)
CPT/HCPCS: 78452; 93017; A9500; A4216; J2785

== ENCOUNTER 2022-07-12 11:01 | Inpatient (IN) | payer MEDICARE, OTHER, SELFPAY ==
[2022-07-12] VITALS (24 sets, daily range): BP systolic 110–135; BP diastolic 36–74; PULSE 63–91; RESP 16–24; TEMP 35.9–37.6; O2SAT 93–100; BMI 32.8
--- NOTE | 2022-07-12 11:39 | RAD_ITS ---
INDICATION: Worsening shortness of breath EXAMINATION/TECHNIQUE: X-RAY - PA and lateral views COMPARISON: 03/11/2022 FINDINGS: LINES/DEVICES: EKG leads overlie the chest LUNGS: Lungs are expanded, with development of interstitial edema and bilateral pleural effusions since previous study. Follow-up recommended to ensure resolution. MEDIASTINUM AND CARDIOVASCULAR STRUCTURES: Remote CABG BONES AND SOFT TISSUES: Unremarkable. RAD/Chest PA and Lateral IMPRESSION: Interstitial edema with bilateral pleural effusions. Follow-up recommended to ensure resolution Electronically Signed: Nirav Diaz MD at 12:35 EST ,
--- NOTE | 2022-07-12 11:42 | EDS_ITS ---
HPI History of Present Illness Chief Complaint: Shortness of Breath Onset/Context/Timing Onset: Weeks (2) Context: gradual and onset Timing: Continuous Quality: Positive for Dyspnea on exertion Current Severity: Severe Maximum Severity: Severe Worsened by: Exertion and Lying flat Relieved by: Rest Associated Symptoms cough Chest Pain: Positive for Intermittent and Tightness Narrative Narrative: Patient presents with 2 weeks of progressively worsening exertional chest tightness and dyspnea. He was seen early on in the course at his cardiology office who adjusted his isosorbide. He states now his symptoms are so bad that he can only walk a couple steps and he is useless and having significant increase in his lower extremity edema in the past week or so. He is orthopneic. He has a history of CAD status post CABG, he does not have a known history of congestive heart failure, his last echocardiogram was 12/2019, it showed normal systolic function with ejection fraction 60%, relatively mild valvular insuffic iencies, and the diastolic function was indeterminate. He states he does not feel like he has an illness although he has a minor cough, he denies any fevers, chills, nasal congestion, or sputum production. [facility] Medical History (HFpEF) heart failure with preserved ejection fraction Actinic skin damage Acute coronary thrombosis not resulting in myocardial infarction Atherosclerotic heart disease of [place] coronary artery without angina pectoris Bacteremia BPH with obstruction/lower urinary tract symptoms Cardiac arrest with ventricular fibrillation Colitis COPD (chronic obstructive pulmonary disease) CVA (cerebral vascular accident) (05/2018) DDD (degenerative disc disease), lumbar Esophageal reflux Essential (primary) hypertension HLD (hyperlipidemia) Insomnia Macular degeneration (senile) of retina, unspecified Mixed hyperlipidemia Paroxysmal A-fib Severe sepsis Syncope Thrombocytopenia TIA (transient ischemic attack) Home Medications tamsulosin 0.4 mg capsule 0.4 mg PO DAILY prostate 05/23/13 [History Last Taken 12/18/19] pantoprazole 40 mg tablet,delayed release 40 mg PO DAILY gerd/acid reflux 10/11/16 [History Last Taken 12/19/19] nitroglycerin 0.4 mg sublingual tablet 0.4 mg sublingual Q5M PRN Chest Pain #25 tabs 08/11/21 [Rx Last Taken Unknown] isosorbide mononitrate 30 mg tablet,extended release 24 hr 30 mg PO DAILY #90 tabs 08/31/21 [Rx Last Taken Unknown] sotalol 120 mg tablet 120 mg PO BID heart/blood pressure #180 tabs 11/19/21 [Rx Last Taken Unknown] aspirin 81 mg chewable tablet (Aspirin Childrens) 81 mg PO DAILY 12/24/21 [History Last Taken Unknown] fluticasone furoate 100 mcg-vilanterol 25 mcg/dose inhalation powder (Breo Ellipta) 1 inh inhalation DAILY 12/24/21 [History Last Taken Unknown] atorvastatin 80 mg tablet See Rx Instructions .Route .COMPLEX #90 tabs 05/14/22 [Rx Last Taken Unknown] apixaban 5 mg tablet (Eliquis) 5 mg PO BID #180 tabs 05/24/22 [Rx Last Taken Unknown] furosemide 40 mg tablet 40 mg PO Q OTHER DAY #90 tabs 06/25/22 [Rx Last Taken Unknown] Allergy/AdvReac Type Severity Reaction Status Date / Time lisinopril Allergy Cough Verified 06/25/22 11:25 oxycodone [From Percocet] Allergy Hallucinati Verified 06/25/22 11:25 ons pravastatin Allergy Myalgia Verified 06/25/22 11:25 Quinolones Allergy Unknown Verified 06/25/22 11:25 pregabalin [From Lyrica] AdvReac depression Verified 06/25/22 11:25 Family History Mother No problems noted. Father Cancer Sister Cancer Surgical History H/O coronary artery bypass surgery (03/27/04) History of cholecystectomy History of coronary artery stent placement (08/06/12) History of incisional hernia repair History of left heart catheterization (09/2016) History of tonsillectomy Social History Smoking Status: Former smoker pack-years: 37 Tobacco: How many years used: 25 how long ago did patient quit smokin quit status: has quit before alcohol intake: current alcohol intake frequency: 0-2 drinks per day Alcohol type: beer and hard liquor substance use type: does not use caffeine: Yes Type: coffee Number of servings: 2 what type of physical activity do you participate in: none seatbelt use: always do you feel safe at home: Yes ROS ROS ED Constitutional Constitutional ED: Denies chills or fever(s) Eyes Eyes: Denies change in vision or diplopia ENT ENT ED: Denies rhinorrhea or sore throat Cardiovascular Cardiovascular: Reports chest pain and orthopnea; Denies leg edema, palpitations, paroxysmal nocturnal dyspnea or racing heartbeat Respiratory/Chest Respiratory/Chest: Reports cough, dyspnea on exertion and orthopnea; Denies paroxysmal nocturnal dyspnea Gastrointestinal Gastrointestinal: Denies abdominal pain, diarrhea, melena, nausea or vomiting Genitourinary Genitourinary ED: Denies dysuria or hematuria Musculoskeletal Musculoskeletal: Denies back pain, myalgias or neck pain Integumentary Denies abscess or rash Neurologic Neurologic: Denies headache(s), paresthesias or weakness Psychiatric Psychiatric: Denies anxiety or suicidal thoughts EXAM Physical Exam Const Vital Signs: 07/12/22 11:02 07/12/22 11:14 Temperature 96.6 F L Temperature Source Temporal Pulse Rate 91 Respiratory Rate 16 Respiratory Effort Short of Breath Respiratory Depth Normal Respiratory Pattern Normal Pulse Ox 98 Oxygen Delivery Method Room Air Room Air Positive well nourished, well developed and obese General Appearance ED: well developed and NAD Nutritional Appearance: obese HEENT Reports moist mucous membranes normocephalic and atraumatic Eyes PERRL and EOMs intact bilaterally Neck full ROM and supple Neck Narrative: Mild JVD Resp normal respiratory effort and clear to auscultation bilaterally Cardio regular rate, regular rhythm and no murmurs GI non-tender and non-distended Auscultation: normoactive bowel sounds Palpation: soft Back/Spine no CVA tenderness General Back: other FROM Extremity normal to inspection General Extremety ED: Yes edema; Negative for pulses abnormal or tenderness General Extremity: edema bilateral lower extremity Details: moderate (Symmetric. No calf tenderness.); Negative for pulses abnormal Neuro oriented x3, CN's II-XII intact bilaterally and no sensory deficits noted Sensorium / Orientation: awake and alert Motor Exam: strength 5/5 throughout Skin no rashes or lesions noted and no wounds MDM MDM MDM Narrative Medical decision making narrative: Patient's hemoglobin came back at 5.0. This is a large change compared with February when he was 10-11. I did a Hemoccult, he did admit to having some black stools off and on but this was like a week ago or so. His Hemoccult is positive. He is on Eliquis. This is for paroxysmal atrial fibrillation which she is not in right now. Patient is doing well he was given Lasix empirically prior to his knowing any of the lab results, thinking this could be congestive heart failure-related, I am still not able to rule that out since he has an elevated BNP and mild interstitial edema on the 1 view chest x-ray on my interpretation, but the plan is to admit him and consult GI and cardiology. He sees Dr. Jasso as an outpatient. I discussed with GI they agree with putting him on Protonix bolus and drip. Patient was consented for blood after discussing pros and cons, 2 units were typed and crossed for him. Lab Data Attestation: I reviewed the patient's lab results. Labs: Laboratory Results - last 24 hr 07/12/22 07/12/22 07/12/22 11:53 11:53 11:53 WBC 7.4 RBC 2.04 L Hgb 5.0 L* Hct 17.7 L MCV 86.8 MCH 24.5 L MCHC 28.2 L RDW Std Deviation 50.1 H RDW Coeff of Randall 15.8 H Plt Count 188 MPV 9.8 Immature Gran % (Auto) 0.400 Neut % (Auto) 76.8 H Lymph % (Auto) 11.2 L Moody % (Auto) 9.6 Eos % (Auto) 1.6 Baso % (Auto) 0.4 Absolute Neuts (auto) 5.7 Absolute Lymphs (auto) 0.83 Nucleated RBC % 0.5 Platelet Estimate ADEQUATE Hypochromasia 1+ Poikilocytosis 1+ Ovalocytes 1+ Sodium 137 Potassium 3.4 L Chloride 102 Carbon Dioxide 27.0 Anion Gap 8 BUN 12 Creatinine 1.08 Estim Creat Clear Calc 45.87 Est GFR (MDRD) Af Amer 84 Est GFR (MDRD) Non-Af 70 BUN/Creatinine Ratio 11.1 Glucose 139 H Calcium 8.1 L Troponin I High Sens 15 B-Natriuretic Peptide 342.2 H Blood Type Antibody Screen Crossmatch 07/12/22 12:35 WBC RBC Hgb Hct MCV MCH MCHC RDW Std Deviation RDW Coeff of Randall Plt Count MPV Immature Gran % (Auto) Neut % (Auto) Lymph % (Auto) Moody % (Auto) Eos % (Auto) Baso % (Auto) Absolute Neuts (auto) Absolute Lymphs (auto) Nucleated RBC % Platelet Estimate Hypochromasia Poikilocytosis Ovalocytes Sodium Potassium Chloride Carbon Dioxide Anion Gap BUN Creatinine Estim Creat Clear Calc Est GFR (MDRD) Af Amer Est GFR (MDRD) Non-Af BUN/Creatinine Ratio Glucose Calcium Troponin I High Sens B-Natriuretic Peptide Blood Type A POSITIVE Antibody Screen NEGATIVE Crossmatch See Detail Radiography Diagnostic Testing: Clinical Impression(s) from Imaging Studies Chest X-Ray 07/12/22 11:39 IMPRESSION: Interstitial edema with bilateral pleural effusions. Follow-up recommended to ensure resolution Electronically Signed: Nirav Diaz MD at 12:35 EST , EKG Initial EKG: Attestation: I personally reviewed and interpreted this EKG as follows: Interpretation: Sinus Rhythm, No Acute Injury Pattern, AV Block (1st deg) and Non-Specific ST Changes (diffuse) Prior EKG tracings: available for review Prior: Unchanged (except slightly longer MT) Critical Care Time Critical Care Time: Yes Critical care time (excluding procedures): 30-74 minutes (35 min), Including time spent:, Discussing w/Patient &/or Family/College Professor, Discussing w/Consultants, Arranging Admission or Transfer and Performing Direct Patient C are at Bedside Discharge Plan Dx/Rx/DC Orders Clinical Impression: ABLA (acute blood loss anemia), Occult GI bleeding, MELVIN (dyspnea on exertion), Chest pain, exertional, Declining functional status, CHF (congestive heart failure) Disposition Disposition: Acute Care [facility]
[2022-07-12 12:02] LABS: Absolute Lymphocyte Count 0.83 X10^3/uL (0.83-4.51); Absolute Neutrophil Count 5.7 X10^3/uL (2.0-7.7); Basophil# 0.03 X10^3/uL; Basophil% 0.4 % (0-1); Eosinophil# 0.12 X10^3/uL; Eosinophils% 1.6 % (0-5); Hematocrit 17.7 % (40-54); Lymphocyte # 0.83 X10^3/ul (0.83-4.51); Lymphocyte % 11.2 % (19-41); Mean Corp Hgb Conc 28.2 g/dL (32-36); Mean Corpuscular Hgb 24.5 pg (27.0-32.0); Mean Corpuscular Volume 86.8 fL (80-94); Mean Platelet Vol. 9.8 fl (6.2-12.0); Monocyte# 0.71 X10^3/uL; Monocyte% 9.6 % (0-10); NRBC Flagged by Analyzer 0.5 % (0-5); Neutrophil # 5.68 X10^3/uL (2.7-7.7); Neutrophil % 76.8 % (47-70); POSITIVE COUNT YES; Platelet Count 188 K/mm3 (150-450); RBC Distribution Width CV 15.8 % (11.6-14.6); RBC Distribution Width SD 50.1 fl (35.1-43.9); Red Blood Count 2.04 M/mm3 (4.6-6.2); White Blood Count 7.4 K/mm3 (4.4-11.0)
[2022-07-12 12:17] LABS: Anion Gap 8 (5-15); BUN 12 mg/dL (7-18); BUN/Creat Ratio 11.1 RATIO (10-20); Calcium,Total 8.1 mg/dL (8.5-10.1); Chloride 102 mmol/L (98-107); Creatinine, Serum 1.08 mg/dL (0.70-1.30); EST Glomerular Filtration Rate 70 mL/min (>60); Est Glom Filt Rate - Afr Amer 84 mL/min (>60); Estimated Creatinine Clearance 45.87 ml/min; Glucose 139 mg/dL (74-106); Potassium 3.4 mmol/L (3.5-5.1); Sodium Level 137 mmol/L (136-145); Troponin-I HS 15 pg/mL (3.0-78.0)
[2022-07-12 12:28] LABS: BNP,B-Type NATRIURETIC PEPTIDE 342.2 pg/mL (0-100)
[2022-07-12 12:38] LABS: Hypochromasia 1+; Ovalocyte 1+; Platelet Estimate ADEQUATE (ADEQ); Poikilocytosis 1+
[2022-07-12] MEDS: Furosemide 40 MG/4 ML Vial IV (12:38)
--- NOTE | 2022-07-12 14:14 | HP.PCM.HOS_ITS ---
HPI - General General Date of Admission: 07/12/22 Date of Service: 07/12/22 Chief Complaint: Shortness of breath, weakness, fatigue HPI Narrative RO SWAN, is a 82 M who presented to the emergency department [facility] on 07/12/2022 complaining of shortness of breath, fatigue, and some intermittent worsening chest tightness. The patient reports that he has been having issues with this for approximately the last 2 to 3 weeks. He was seen by cardiology nurse practitioner on 06/25/2022 at which time they adjusted his isosorbide. He reported that his symptoms are so bad now he is useless and unable to do much at home. He had some increase in his lower extremity edema although his reports that it is better today. He has had worsening shortness of breath at rest and with exertion. He indicated coming into the hospital he could hardly walk down the hallway because his fatigue and shortness of breath were so severe. He reported some dark tarry stool. Denies any abdominal pain, hematochezia, or hematemesis. He is chronically anticoagulated on Eliquis and takes a daily baby aspirin. He has a known h istory of congestive heart failure and cardiology has also been adjusting his diuretics as an outpatient. He has had no respiratory or upper respiratory symptoms and denies any fever or chills. Upon presentation to the emergency department his temperature was 96.6, heart rate 91, blood pressure 110/72, respiratory rate 22 and oxygen saturation was 98% on room air. His CBC showed a normal leukocyte count however his hemoglobin was 5 (baseline 11.0-13). His platelet count was normal. His chemistry panel showed a mild hypokalemia with potassium of 3.4. His troponin was normal at 15 and his BNP was 342 but improving overall. His EKG showed no ST-T wave changes consistent with acute ischemia but did show some mild lateral ST depression. The patient was chest pain-free at the time of my evaluation. I suspect this was related to his severe anemia. In the emergency department upon initial presentation he was given Lasix 40 mg IV x1 dose and after his labs were obtained he was started on a Protonix drip and recommendation for admission was made. [facility] Medical History (HFpEF) heart failure with preserved ejection fraction Actinic skin damage Acute coronary thrombosis not resulting in myocardial infarction Anemia Atherosclerotic heart disease of [place] coronary artery without angina pectoris Atrial fibrillation Bacteremia BPH with obstruction/lower urinary tract symptoms Cardiac arrest with ventricular fibrillation Chest pain Colitis COPD (chronic obstructive pulmonary disease) Coronary artery disease CVA (cerebral vascular accident) (05/2018) DDD (degenerative disc disease), lumbar Esophageal reflux Essential (primary) hypertension Former smoker HLD (hyperlipidemia) Hypertension Insomnia Macular degeneration (senile) of retina, unspecified Mixed hyperlipidemia Paroxysmal A-fib Severe sepsis Syncope Thrombocytopenia TIA (transient ischemic attack) Home Medications tamsulosin 0.4 mg capsule 0.4 mg PO DAILY prostate 05/23/13 [History Last Taken 12/18/19] pantoprazole 40 mg tablet,delayed release 40 mg PO DAILY gerd/acid reflux 10/11/16 [History Last Taken 12/19/19] nitroglycerin 0.4 mg sublingual tablet 0.4 mg sublingual Q5M PRN Chest Pain #25 tabs 08/11/21 [Rx Last Taken Unknown] isosorbide mononitrate 30 mg tablet,extended release 24 hr 30 mg PO DAILY #90 tabs 08/31/21 [Rx Last Taken Unknown] sotalol 120 mg tablet 120 mg PO BID heart/blood pressure #180 tabs 11/19/21 [Rx Last Taken Unknown] aspirin 81 mg chewable tablet (Aspirin Childrens) 81 mg PO DAILY 12/24/21 [History Last Taken Unknown] fluticasone furoate 100 mcg-vilanterol 25 mcg/dose inhalation powder (Breo Ellipta) 1 inh inhalation DAILY 12/24/21 [History Last Taken Unknown] atorvastatin 80 mg tablet See Rx Instructions .Route .COMPLEX #90 tabs 05/14/22 [Rx Last Taken Unknown] apixaban 5 mg tablet (Eliquis) 5 mg PO BID #180 tabs 05/24/22 [Rx Last Taken Unknown] furosemide 40 mg tablet 40 mg PO Q OTHER DAY #90 tabs 06/25/22 [Rx Last Taken Unknown] Allergy/AdvReac Type Severity Reaction Status Date / Time lisinopril Allergy Cough Verified 06/25/22 11:25 oxycodone [From Percocet] Allergy Hallucinati Verified 06/25/22 11:25 ons pravastatin Allergy Myalgia Verified 06/25/22 11:25 Quinolones Allergy Unknown Verified 06/25/22 11:25 pregabalin [From Lyrica] AdvReac depression Verified 06/25/22 11:25 Family History Mother No problems noted. Father Cancer Sister Cancer Surgical History H/O coronary artery bypass surgery (03/27/04) History of cholecystectomy History of coronary artery stent placement (08/06/12) History of incisional hernia repair History of left heart catheterization (09/2016) History of tonsillectomy Social History Smoking Status: Former smoker pack-years: 37 Tobacco: How many years used: 25 how long ago did patient quit smokin quit status: has quit before alcohol intake: current alcohol intake frequency: 0-2 drinks per day Alcohol type: beer and hard liquor substance use type: does not use caffeine: Yes Type: coffee Number of servings: 2 what type of physical activity do you participate in: none seatbelt use: always do you feel safe at home: Yes ROS Constitutional Constitutional: Reports fatigue and weakness; Denies anorexia, change in weight, chills, fever(s), malaise, night sweats or other Eyes Eyes: Denies blurry vision, change in eye color, change in vision, discharge from eye(s), double vision, erythema, eye pain, loss of vision or other ENT HEENT: Reports abnormal hearing and hearing loss; Denies dysphagia, ear pain, epistaxis, headache(s), nasal congestion, nasal discharge, post nasal drip, sinus pressure, sore throat or other Cardiovascular Cardiovascular: Reports dyspnea on exertion; Denies chest pain, claudication, edema, lightheadedness, orthopnea, palpitations, paroxysmal nocturnal dyspnea, rapid heart rate, syncope or other Respiratory/Chest Respiratory/Chest: Reports shortness of breath at rest and shortness of breath with exertion; Denies cough, dyspnea, excessive phlegm production, hemoptysis, productive cough, wheezing or other Gastrointestinal Gastrointestinal: Reports melena; Denies abdominal pain, coffee ground emesis, constipation, diarrhea, dyspepsia, hematemesis, hematochezia, loose stools, nausea, vomiting or other Genitourinary Genitourinary: Denies burning urination, difficulty urinating, dysuria, hematuria, nocturia, urinary frequency, urinary hesitancy, urinary incontinence, urinary urgency or other Musculoskeletal Musculoskeletal: Denies arthralgias, back pain, joint pain, joint stiffness, joint swelling, myalgias, neck pain or other Neurologic Neurologic: Denies abnormal gait, abnormal speech, confusion, disequilibrium, dizziness, focal weakness, headache(s), numbness, paresthesias, seizure-like activity, seizures, syncope, tingling, tremor(s) or other Psychiatric Psychiatric: Denies anxiety, depression, homicidal ideation, suicidal ideation or other Endocrine Endocrinology: Denies change in body appearance, cold intolerance, excessive sweating, heat intolerance, polydipsia, polyuria or other Hematologic/Lymphatic Hematologic/Lymphatic: Denies anemia, easy bleeding, easy bruising, lymphadenopathy or other Allergic/Immunologic Allergic/Immunologic: Denies rhinitis, hives, eczemia, asthma or other Vital Signs Vital Signs Vital Signs: 07/12/22 11:02 07/12/22 11:14 Temperature 96.6 F L Temperature Source Temporal Pulse Rate 91 Respiratory Rate 16 Respiratory Effort Short of Breath Respiratory Depth Normal Respiratory Pattern Normal Pulse Ox 98 Oxygen Delivery Method Room Air Room Air Weight Weight: 89.358 kg Body Mass Index (BMI) 32.8 Physical Exam Const alert, oriented x3 and no apparent distress Constitutional Narrative: Elderly white male sitting up in bed, at bedside, patient appears comfortable and nontoxic General Appearance: cooperative HEENT normocephalic and head/scalp atraumatic HEENT Narrative: Moderate hearing loss, dentures in place -Mallampati 3, no thrush Eyes PERRL and EOMs intact bilaterally; Negative for conjunctivae normal Eyes Narrative: Significant conjunctival pallor bilaterally, no scleral icterus Neck no lymphadenopathy, supple, no JVD and no carotid bruits Resp normal respiratory effort, no retractions, no use of accessory muscles and clear to auscultation bilaterally Resp Narrative: Usually diminished but clear Auscultation: Negative for crackles, rhonchi or wheezes Cardio regular rate, regular rhythm, S1 normal heart sound, S2 normal heart sound, no murmurs, no rub, no gallops and no clicks GI normal to inspection, nondistended, normoactive bowel sounds, soft to palpation and non-tender Extremity Extremity Narrative: 2+ pedal pulses, no cyanosis or clubbing, trace to 1+ pitting edema bilateral lower extremities Skin no rashes or lesions noted, no wounds, skin turgor normal, no jaundice, no petechiae and no mottling Skin Narrative: Very pale palmar creases, very pale skin Neuro oriented x3, CN's II-XII intact bilaterally, moves all extremities and no focal motor deficits Neuro Narrative: Mild to moderate generalized weakness with no focal deficits Speech: speech normal Psych affect normal Psych Narrative: Pleasant, intermittent joking, appropriately interactive Results Lab / Micro Data Attestation: I reviewed the patient's lab results. Result Diagrams: 07/12/22 11:53 07/12/22 11:53 Labs: Laboratory Results - last 24 hr 07/12/22 11:53: WBC 7.4, RBC 2.04 L, Hgb 5.0 L*, Hct 17.7 L, MCV 86.8, MCH 24.5 L, MCHC 28.2 L, RDW Std Deviation 50.1 H, RDW Coeff of Randall 15.8 H, Plt Count 188, MPV 9.8, Immature Gran % (Auto) 0.400, Neut % (Auto) 76.8 H, Lymph % (Auto) 11.2 L, [place] % (Auto) 9.6, Eos % (Auto) 1.6, Baso % (Auto) 0.4, Absolute Neuts (auto) 5.7, Absolute Lymphs (auto) 0.83, Nucleated RBC % 0.5, Platelet Estimate ADEQUATE, Hypochromasia 1+, Poikilocytosis 1+, Ovalocytes 1+ 07/12/22 11:53: Sodium 137, Potassium 3.4 L, Chloride 102, Carbon Dioxide 27.0, Anion Gap 8, BUN 12, Creatinine 1.08, Estim Creat Clear Calc 45.87, Est GFR (MDRD) Af Amer 84, Est GFR (MDRD) Non-Af 70, BUN/Creatinine Ratio 11.1, Glucose 139 H, Calcium 8.1 L, Troponin I High Sens 15 07/12/22 11:53: B-Natriuretic Peptide 342.2 H 07/12/22 12:35: Blood Type A POSITIVE, Antibody Screen NEGATIVE, Crossmatch See Detail Micro: Microbiology 07/12/22 12:35 Stool Stool Occult Blood (DANE) - Final Occult Blood Positive Radiology Impression Chest X-Ray 07/12/22 11:39 IMPRESSION: Interstitial edema with bilateral pleural effusions. Follow-up recommended to ensure resolution Electronically Signed: Nirav Diaz MD at 12:35 EST Reading Location ID and State: [facility] / [place] , Service support , Assessment & Plan Assessment/Plan (1) Shortness of breath: (2) Fatigue: (3) Lightheadedness: (4) ABLA (acute blood loss anemia): (5) Occult GI bleeding: (6) Hypokalemia: PLAN: Plan GI bleed -Upper versus lower -BUN/creatinine ratio not significantly abnormal -Protonix drip -Hold home aspirin/Eliquis -Transfuse 2 units packed red blood cells -N.p.o. -Patient has not had colonoscopy since his last 1 they indicated he needed no further ones with his age -He is unable to recall what year that was performed -Consult gastroenterology--> Case was discussed Acute on chronic anemia -Current hemoglobin 5 -Baseline hemoglobin between 11 and 13 -Transfused 2 units packed red blood cells -Every 6 hour H&H with next 1 being after blood is transfused -Repeat CBC in a.m. -Treatment as above -Lasix given in ER--> may need Lasix with blood if develops any shortness of breath Hypokalemia -P.o. potassium supplementation -Repeat in a.m. -Check a.m. magnesium Lightheadedness/shortness of breath/generalized weakness -Suspect related to acute anemia -Stable on room air -Troponin is negative -No chest pain -BNP is improved from baseline -PT/OT consultation CAD -Previous CABG X 3, ACOSTA to LAD, SVG to D1, SVG-RPDA? 03/27/2004 -[id number] RCA w/ 3.5 x 12 mm Promus Stent 08/06/2012 -recent cardiac catheterization from 2017 demonstrated the ACOSTA to the LAD which was atretic, patent saphenous vein graft to the posterior descending artery, saphenous vein graft to diagonal vessel, and patent stenting in the right coronary artery -Troponin negative on admission -We will hold aspirin for now with anemia PAF -Eliquis on hold secondary to bleeding next normal sinus rhythm -Continue home sotalol Hypertension Continue home isosorbide mononitrate HFpEF -Most recent echo from 2019 shows EF of 60% with a right ventricular systolic pressure of 31 mmHg -Stress echo in 2021 with preserved EF -Continue home Lasix dosing -May need extra dose with blood transfusion -Monitor clinically History of stroke -Eliquis on hold secondary to GI bleed -Restart Eliquis as soon as safe per GI recommendations GERD -Hold home Protonix -IV Protonix drip for now BPH -Continue home Flomax COPD -As needed aerosols -Former smoker History of tobacco abuse -Recommend continued cessation Obesity -BMI 32.8 -Recommend weight loss -Complicates treatment, prognosis, outcomes DVT prophylaxis -SCDs -No chemoprophylaxis secondary to GI bleed CODE STATUS DNR TANNER [place] for short-term intubation Charges/Coding Visit Charges Inpatient E&M: 49209 Init Hosp L3
--- NOTE | 2022-07-12 14:51 | EX.PCM.CON.G ---
HPI Consult Data Date of Consult: 07/12/22 HPI Narrative Reason for Consultation: Anemia HPI Narrative: RO SWAN, is a 82 M who presents with 2 weeks of progressively worsening exertional chest tightness and dyspnea.? He was seen early on in the course at his cardiology office who adjusted his isosorbide.? He states now his symptoms are so bad that he can only walk a couple steps and he is useless and having significant increase in his lower extremity edema in the past week or so.? He is orthopneic. He has a history of coronary artery disease status post coronary bypass surgery in 2003 with a saphenous vein graft to diagonal branch, saphenous vein graft to posterior descending artery, and left internal mammary artery to the left anterior descending artery.? He did have stenting of his right coronary artery in 2012.? His cardiac catheterization in September 2016 demonstrated the ACOSTA to the LAD which was atretic, patent saphenous vein graft to the posterior descending artery, saphenous vein graft to diagonal vessel, and patent stenting in the right coronary artery.? He also has a history of paroxysmal atrial fibrillation, previous TIA, hypertension and hyperlipidemia.?? In the emergency room he was noted to have a hemoglobin of 5. He has no history of GI bleed. He he does take aspirin and Eliquis for atrial for lesion and history of CVA with residual deficit. He denies any dark stools. [facility] Medical History (HFpEF) heart failure with preserved ejection fraction Actinic skin damage Acute coronary thrombosis not resulting in myocardial infarction Atherosclerotic heart disease of [place] coronary artery without angina pectoris Bacteremia BPH with obstruction/lower urinary tract symptoms Cardiac arrest with ventricular fibrillation Colitis COPD (chronic obstructive pulmonary disease) CVA (cerebral vascular accident) (05/2018) DDD (degenerative disc disease), lumbar Esophageal reflux Essential (primary) hypertension HLD (hyperlipidemia) Insomnia Macular degeneration (senile) of retina, unspecified Mixed hyperlipidemia Paroxysmal A-fib Severe sepsis Syncope Thrombocytopenia TIA (transient ischemic attack) Home Medications tamsulosin 0.4 mg capsule 0.4 mg PO DAILY prostate 05/23/13 [History Last Taken 12/18/19] pantoprazole 40 mg tablet,delayed release 40 mg PO DAILY gerd/acid reflux 10/11/16 [History Last Taken 12/19/19] nitroglycerin 0.4 mg sublingual tablet 0.4 mg sublingual Q5M PRN Chest Pain #25 tabs 08/11/21 [Rx Last Taken Unknown] isosorbide mononitrate 30 mg tablet,extended release 24 hr 30 mg PO DAILY #90 tabs 08/31/21 [Rx Last Taken Unknown] sotalol 120 mg tablet 120 mg PO BID heart/blood pressure #180 tabs 11/19/21 [Rx Last Taken Unknown] aspirin 81 mg chewable tablet (Aspirin Childrens) 81 mg PO DAILY 12/24/21 [History Last Taken Unknown] fluticasone furoate 100 mcg-vilanterol 25 mcg/dose inhalation powder (Breo Ellipta) 1 inh inhalation DAILY 12/24/21 [History Last Taken Unknown] atorvastatin 80 mg tablet See Rx Instructions .Route .COMPLEX #90 tabs 05/14/22 [Rx Last Taken Unknown] apixaban 5 mg tablet (Eliquis) 5 mg PO BID #180 tabs 05/24/22 [Rx Last Taken Unknown] furosemide 40 mg tablet 40 mg PO Q OTHER DAY #90 tabs 06/25/22 [Rx Last Taken Unknown] Allergy/AdvReac Type Severity Reaction Status Date / Time lisinopril Allergy Cough Verified 06/25/22 11:25 oxycodone [From Percocet] Allergy Hallucinati Verified 06/25/22 11:25 ons pravastatin Allergy Myalgia Verified 06/25/22 11:25 Quinolones Allergy Unknown Verified 06/25/22 11:25 pregabalin [From Lyrica] AdvReac depression Verified 06/25/22 11:25 Family History Mother No problems noted. Father Cancer Sister Cancer Surgical History H/O coronary artery bypass surgery (03/27/04) History of cholecystectomy History of coronary artery stent placement (08/06/12) History of incisional hernia repair History of left heart catheterization (09/2016) History of tonsillectomy Social History Smoking Status: Former smoker pack-years: 37 Tobacco: How many years used: 25 how long ago did patient quit smokin quit status: has quit before alcohol intake: current alcohol intake frequency: 0-2 drinks per day Alcohol type: beer and hard liquor substance use type: does not use caffeine: Yes Type: coffee Number of servings: 2 what type of physical activity do you participate in: none seatbelt use: always do you feel safe at home: Yes ROS Review of Systems ROS Unobtainable: other Constitutional Constitutional: Denies fatigue, fever(s), poor appetite, weight gain or weight loss ENT HEENT: Denies mouth lesions Cardiovascular Cardiovascular: Denies abdominal bloating, abdominal edema or abdominal pain Respiratory/Chest Respiratory/Chest: Denies change in mental status, change in phlegm color, chest congestion or chest tightness Gastrointestinal Gastrointestinal: Denies belching, bloating, change in bowel habits, change in stool character, chewing difficulty, coffee ground emesis, constipation, cramping, diarrhea, dyspepsia, dysphagia, early satiety, excessive flatus, fecal incontinence, heartburn, hematemesis, hematochezia, hemorrhoids, loose stools, melena, nausea, odynophagia, rectal bleeding, tenesmus, vomiting or weight changes Genitourinary Genitourinary: Denies abdominal discomfort, burning urination or itching Musculoskeletal Musculoskeletal: Reports as per HPI; Denies muscle weakness or myalgias Integumentary Integumentary: Denies jaundice Neurologic Neurologic: Denies lack of coordination or weakness Psychiatric Psychiatric: Denies confusion, depression, memory loss, mood swings, paranoia or suicidal ideation Endocrine Endocrinology: Denies systems reviewed and no addt'l complaints, except as documented Hematologic/Lymphatic Hematologic/Lymphatic: Denies anemia, easy bleeding, easy bruising or lymphadenopathy Allergic/Immunologic Allergic/Immunologic: Denies systems reviewed and no addt'l complaints, except as documented Physical Exam Const alert General Appearance: cooperative Orientation / Consciousness: oriented to person HEENT hearing grossly normal bilaterally Head and Scalp: normal to inspection Face and Sinus: face symmetric Nose: external nose normal Mouth: oral and palatal mucosa normal Eyes conjunctivae normal General Eye: normal appearance of both eyes Neck full ROM General: normal visual inspection Lymph Lymphatic: no lymphadenopathy noted Chest inspection of chest normal and palpation of chest normal Chest: symmetrical chest wall rise Resp normal respiratory effort Effort and Inspection: able to speak in complete sentences Cardio regular rate GI non-distended Percussion: normal to percussion Rectal Exam: deferred Neuro Speech: speech normal Gait (Neuro): normal gait Lab / Micro Data Result Diagrams: 07/12/22 11:53 07/12/22 11:53 Labs: Laboratory Results - last 24 hr 07/12/22 11:53: WBC 7.4, RBC 2.04 L, Hgb 5.0 L*, Hct 17.7 L, MCV 86.8, MCH 24.5 L, MCHC 28.2 L, RDW Std Deviation 50.1 H, RDW Coeff of [place] 15.8 H, Plt Count 188, MPV 9.8, Immature Gran % (Auto) 0.400, Neut % (Auto) 76.8 H, Lymph % (Auto) 11.2 L, [place] % (Auto) 9.6, Eos % (Auto) 1.6, Baso % (Auto) 0.4, Absolute Neuts (auto) 5.7, Absolute Lymphs (auto) 0.83, Nucleated RBC % 0.5, Platelet Estimate ADEQUATE, Hypochromasia 1+, Poikilocytosis 1+, Ovalocytes 1+ 07/12/22 11:53: Sodium 137, Potassium 3.4 L, Chloride 102, Carbon Dioxide 27.0, Anion Gap 8, BUN 12, Creatinine 1.08, Estim Creat Clear Calc 45.87, Est GFR (MDRD) Af Amer 84, Est GFR (MDRD) Non-Af 70, BUN/Creatinine Ratio 11.1, Glucose 139 H, Calcium 8.1 L, Troponin I High Sens 15 07/12/22 11:53: B-Natriuretic Peptide 342.2 H 07/12/22 12:35: Blood Type A POSITIVE, Antibody Screen NEGATIVE, Crossmatch See Detail Micro: Microbiology 07/12/22 12:35 Stool Stool Occult Blood (DANE) - Final Occult Blood Positive Radiology Impression Chest X-Ray 07/12/22 11:39 IMPRESSION: Interstitial edema with bilateral pleural effusions. Follow-up recommended to ensure resolution Electronically Signed: Nirav Diaz MD at 12:35 EST Reading Location ID and State: [facility] , Service support , Assessment & Plan Assessment/Plan (1) Occult GI bleeding: PLAN: Differential diagnosis for worsening anemia in the setting of occult GI bleed would be peptic ulcer disease, angiodysplasia, Otis's erosions, gastric antral vascular ectasia, neoplasia. He should undergo endoscopic evaluation so we would be safe to put him back on anticoagulation and antiplatelet therapy. Recommend hold antiplatelets and anticoagulation at this time. Recommend 40 mg of IV Protonix twice a day. Charges/Coding Visit Charges Inpatient E&M: 22535 Init Hosp L2
[2022-07-12] MEDS: Albuterol 2.5 MG/3 ML VIAL.NEB. INHALATION (19:20)
[2022-07-12] MEDS: Budesonide Respules 0.5 MG/2 ML AMPUL.NEB. INHALATION (19:20)
[2022-07-12] MEDS: Sotalol Hydrochloride 80 MG Tablet 120 MG PO (21:43)
[2022-07-13] VITALS (27 sets, daily range): BP systolic 78–150; BP diastolic 45–81; PULSE 58–106; RESP 16–20; TEMP 36.2–36.9; O2SAT 94–100; BMI 33.0
[2022-07-13 02:18] LABS: Hematocrit 22.6 % (40-54); Hemoglobin 6.9 g/dL (13.0-16.5)
--- NOTE | 2022-07-13 04:03 | PCM.HOSP.N ---
Hospitalist Note Patient with repeat Hgb 6.9 following 2 u PRBC administration. Will request an additional 2 u PRBC. RN reporting stable respiratory status and tolerance of transfusions.
[2022-07-13] MEDS: Albuterol 2.5 MG/3 ML VIAL.NEB. INHALATION ×3 (06:56→20:49)
[2022-07-13] MEDS: Budesonide Respules 0.5 MG/2 ML AMPUL.NEB. INHALATION ×2 (06:56→20:49)
[2022-07-13 07:03] LABS: Absolute Lymphocyte Count 1.02 X10^3/uL (0.83-4.51); Absolute Neutrophil Count 4.6 X10^3/uL (2.0-7.7); Basophil# 0.03 X10^3/uL; Basophil% 0.5 % (0-1); Eosinophil# 0.11 X10^3/uL; Eosinophils% 1.7 % (0-5); Hematocrit 23.4 % (40-54); Hemoglobin 7.5 g/dL (13.0-16.5); Lymphocyte # 1.02 X10^3/ul (0.83-4.51); Lymphocyte % 15.5 % (19-41); Mean Corp Hgb Conc 32.1 g/dL (32-36); Mean Corpuscular Hgb 27.7 pg (27.0-32.0); Mean Corpuscular Volume 86.3 fL (80-94); Mean Platelet Vol. 9.6 fl (6.2-12.0); Monocyte% 12.1 % (0-10); NRBC Flagged by Analyzer 0.8 % (0-5); Neutrophil # 4.62 X10^3/uL (2.7-7.7); Neutrophil % 69.9 % (47-70); Platelet Count 156 K/mm3 (150-450); RBC Distribution Width CV 15.2 % (11.6-14.6); RBC Distribution Width SD 47.8 fl (35.1-43.9); Red Blood Count 2.71 M/mm3 (4.6-6.2); White Blood Count 6.6 K/mm3 (4.4-11.0)
[2022-07-13 07:22] LABS: International Normalized Ratio 1.4; Prothrombin Time (Protime)PT. 17.2 SECONDS (11.7-14.9)
[2022-07-13 07:23] LABS: Partial Thromboplast Time 36.7 Seconds (24.1-36.2)
[2022-07-13 07:26] LABS: ALB/GLOB Ratio 1.1 RATIO (0.9-2.4); AST(SGOT) 14 U/L (15-37); Alanine Aminotransfer ALT/SGPT 16 U/L (16-61); Albumin, Serum 3.1 g/dL (3.2-5.0); Alkaline Phosphatase 84 U/L (45-117); Anion Gap 7 (5-15); BUN 12 mg/dL (7-18); BUN/Creat Ratio 11.3 RATIO (10-20); Calcium,Total 8.2 mg/dL (8.5-10.1); Chloride 103 mmol/L (98-107); Creatinine, Serum 1.06 mg/dL (0.70-1.30); EST Glomerular Filtration Rate 71 mL/min (>60); Est Glom Filt Rate - Afr Amer 86 mL/min (>60); Estimated Creatinine Clearance 46.74 ml/min; Globulin 2.7 g/dL (2.2-4.2); Glucose 105 mg/dL (74-106); Magnesium 2.2 mg/dL (1.6-2.6); Phosphorus 2.8 mg/dL (2.5-4.9); Potassium 3.5 mmol/L (3.5-5.1); Protein, Total 5.8 g/dL (6.4-8.2); Sodium Level 136 mmol/L (136-145)
[2022-07-13] MEDS: Isosorbide Mononitrate 30 MG Tablet PO (09:37)
[2022-07-13] MEDS: Tamsulosin HCl 0.4 MG Capsule PO (09:37)
[2022-07-13] MEDS: Sotalol Hydrochloride 80 MG Tablet 120 MG PO ×2 (09:37→23:01)
[2022-07-13] MEDS: Furosemide 40 MG Tablet PO (09:37)
[2022-07-13] MEDS: Atorvastatin Calcium 80 MG Tablet PO (09:37)
--- NOTE | 2022-07-13 10:30 | CASEMGMT ---
RN KELSEY Face to Face with patient for initial transition planning/care coordination assessment. RN CM introduced self and role at [facility]. Patient sitting in chair, alert and oriented, at bedside. Patient willing to participate in assessment and is able to answer all questions appropriately. Care providers, pharmacy, and demographics verified. Patient wishes to discharge home, denies need for home health at this time. Patient states he has no further needs or concerns at this time. CM to follow for discharge planning needs that may arise. PCP: Aiden Specialists: Romero tour coordinator Preferred Pharmacy: [facility] Insurance: [employer]upp other Prescription Benefit: yes Living Will/HPOA: yes, Marilee BAKER: , daughter Living Arrangements: Patient lives with in a 2 story home with bed and bath on first floor. Patient has 9 steps and railing to enter the home. Patient states he is independent at home. Transportation: DME/HHC: Patient has walker, raised toilet, and grab bars at home. No previous HHC or SNF. Disposition Plan: Patient to discharge home with family support and follow-up plans in place. Nicole LABOY, RN, CM
--- NOTE | 2022-07-13 11:53 | OP.EGD_ITS ---
Patient Name: Damon Ramos Procedure Date: 07/13/2022 10:50 AM Date of : 1940 Age: 82 Procedure: Upper GI endoscopy Indications: Iron deficiency anemia Providers: Jama Benavidez DO Medicines: Monitored Anesthesia Care Patient Profile: This is an 82 year old male. Refer to note in patient chart for documentation of history and physical. Patient has symptoms of acute dyspepsia. Complications: No immediate complications. Procedure: Pre-Anesthesia Assessment: - Prior to the procedure, a History and Physical was performed, and patient medications and allergies were reviewed. The risks and benefits of the procedure and the sedation options and risks were discussed with the patient. All questions were answered and informed consent was obtained. Patient identification and proposed procedure were verified by the physician in the pre-procedure area. Mental Status Examination: alert and oriented. Airway Examination: normal oropharyngeal airway and neck mobility. Respiratory Examination: clear to auscultation. CV Examination: normal. Prophylactic Antibiotics: The patient does not require prophylactic antibiotics. Prior Anticoagulants: The patient has taken no previous anticoagulant or antiplatelet agents. After reviewing the risks and benefits, the patient was deemed in satisfactory condition to undergo the procedure. The anesthesia plan was to use monitored anesthesia care (MAC). Immediately prior to administration of medications, the patient was re-assessed for adequacy to receive sedatives. The heart rate, respiratory rate, oxygen saturations, blood pressure, adequacy of pulmonary ventilation, and response to care were monitored throughout the procedure. The physical status of the patient was re-assessed after the procedure. After obtaining informed consent, the endoscope was passed under direct vision. Throughout the procedure, the patient's blood pressure, pulse, and oxygen saturations were monitored continuously. The gastroscope was introduced through the mouth, and advanced to the second part of duodenum. The upper GI endoscopy was accomplished without difficulty. The patient tolerated the procedure well. Scope In: 11:41:24 AM Scope Out: 11:44:16 AM Total Procedure Duration Time 0 hours 2 minutes 52 seconds Findings: The upper third of the esophagus and middle third of the esophagus were normal. LA Grade A (one or more mucosal breaks less than 5 mm, not extending between tops of 2 mucosal folds) esophagitis with no bleeding was found 37 to 39 cm from the incisors. Biopsies were taken with a cold forceps for histology. Verification of patient identification for the specimen was done. Estimated blood loss was minimal. A small hiatal hernia was present. 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 The second portion of the duodenum was normal. Impression: - Normal upper third of esophagus and middle third of esophagus. - LA Grade A reflux esophagitis. Biopsied. - Small hiatal hernia. - Gastric antral vascular ectasia without bleeding. - Normal second portion of the duodenum. Recommendation: - Return patient to [facility] for [facility] care. - Advance diet as tolerated. - Colonoscopy with capsule endoscopy if colonoscopy is negative. If those studies are negative he will need APC with radiofrequency ablation of gastric antral vascular ectasia due to the fact that he needs ongoing anticoagulation and antiplatelet therapy. - Continue present medications. Procedure Code(s): --- Professional --- 89371, Esophagogastroduodenoscopy, flexible, transoral; with biopsy, single or multiple CPT copyright 2017 [employer]. All rights reserved. The codes documented in this report are preliminary and upon devops architect review may be revised to meet current compliance requirements. Jama Benavidez DO 07/13/2022 11:52:46 AM This report has been signed electronically. Number of Addenda: 0 Note Initiated On: 07/13/2022 10:50 AM
--- NOTE | 2022-07-13 11:54 | OP.CCLET_ITS ---
07/13/2022 Jose Wolfe [address] [place] [address] Re : Upper GI endoscopy procedure for Damon Richard Dear Dr. Wolfe This procedure was performed on Wednesday, July 13, 2022. My impressions and recommendations are as follows: Impressions : - Normal upper third of esophagus and middle third of esophagus. - LA Grade A reflux esophagitis. Biopsied. - Small hiatal hernia. - Gastric antral vascular ectasia without bleeding. - Normal second portion of the duodenum. Recommendations : - Return patient to [facility] for ongoing care. - Advance diet as tolerated. - Colonoscopy with capsule endoscopy if colonoscopy is negative. If those studies are negative he will need APC with radiofrequency ablation of gastric antral vascular ectasia due to the fact that he needs ongoing anticoagulation and antiplatelet therapy. - Continue present medications. My findings are described in the full procedure note, which is enclosed. If I can be of further assistance, please feel free to contact me at . Sincerely, Jama Benavidez, 07/13/2022 11:52:46 AM This report has been signed electronically.
[2022-07-13 12:57] LABS: Hematocrit 21.4 % (40-54); Hemoglobin 6.4 g/dL (13.0-16.5)
[2022-07-13] MEDS: Bisacodyl 5 MG Tablet 20 MG PO (14:00)
--- NOTE | 2022-07-13 15:30 | PN.HOSP_ITS ---
Subjective Subjective Patient states he is feeling better today after transfusion of blood. Plan is for EGD later today. No overnight issues. Objective Data Objective Data Vital Signs: Vital Signs Temp Pulse Resp BP Pulse Ox O2 Del Method O2 Flow Rate 98.1 F 68 16 99/51 L 100 Room Air 2 07/13/22 14:45 07/13/22 15:00 07/13/22 14:45 07/13/22 14:45 07/13/22 14:45 07/13/22 14:45 07/12/22 23:25 FiO2 99 07/12/22 16:20 Oxygen Flow Rate (L/min) 2 Oxygen Delivery Method Room Air Weight: 89.9 kg Body Mass Index (BMI) 33.0 Intake & Output: Intake and Output for Last 24 Hours 07/11/22 07/12/22 07/13/22 23:59 23:59 23:59 Intake Total 835 / 885 279.33 / 279.33 Output Total 600 / 1275 875 / 875 Balance 235 / -390 -595.67 / -595.67 Lab / Micro Data Result Diagrams: 07/13/22 12:47 07/13/22 06:40 Labs: Laboratory Results - last 24 hr 07/12/22 12:35: Blood Type A POSITIVE, Antibody Screen NEGATIVE, Crossmatch See Detail 07/12/22 12:35: Crossmatch See Detail 07/13/22 02:12: Hgb 6.9 L, Hct 22.6 L 07/13/22 06:40: WBC 6.6, RBC 2.71 L, Hgb 7.5 L, Hct 23.4 L, MCV 86.3, MCH 27.7, MCHC 32.1 D, RDW Std Deviation 47.8 H, RDW Coeff of Randall 15.2 H, Plt Count 156, MPV 9.6, Immature Gran % (Auto) 0.300, Neut % (Auto) 69.9, Lymph % (Auto) 15.5 L , Whitman % (Auto) 12.1 H, Eos % (Auto) 1.7, Baso % (Auto) 0.5, Absolute Neuts (auto) 4.6, Absolute Lymphs (auto) 1.02, Nucleated RBC % 0.8 07/13/22 06:40: Sodium 136, Potassium 3.5, Chloride 103, Carbon Dioxide 26.0, Anion Gap 7, BUN 12, Creatinine 1.06, Estim Creat Clear Calc 46.74, Est GFR (MDRD) Af Amer 86, Est GFR (MDRD) Non-Af 71, BUN/Creatinine Ratio 11.3, Glucose 105, Calcium 8.2 L, Phosphorus 2.8, Magnesium 2.2, Total Bilirubin 1.60 H, AST 14 L, ALT 16, Alkaline Phosphatase 84, Total Protein 5.8 L, Albumin 3.1 L, Globulin 2.7, Albumin/Globulin Ratio 1.1 07/13/22 06:40: PT 17.2 H, INR 1.4, APTT 36.7 H 07/13/22 12:47: Hgb 6.4 L, Hct 21.4 L Micro: Microbiology 07/12/22 12:35 Stool Stool Occult Blood (DANE) - Final Occult Blood Positive Physical Exam Const alert, oriented x3 and no apparent distress Constitutional Narrative: Elderly white male sitting up in a chair at the bedside, present, patient appears comfortable and nontoxic General Appearance: cooperative HEENT normocephalic and head/scalp atraumatic Head and Scalp: normocephalic Resp normal respiratory effort, no retractions, no use of accessory muscles and clear to auscultation bilaterally Resp Narrative: Usually diminished but clear Auscultation: Negative for crackles, rhonchi or wheezes Cardio regular rate, regular rhythm, S1 normal heart sound, S2 normal heart sound, no murmurs, no rub, no gallops and no clicks GI normal to inspection, nondistended, normoactive bowel sounds, soft to palpation and non-tender Extremity Extremity Narrative: 2+ pedal pulses, no cyanosis or clubbing, trace to 1+ pitting edema bilateral lower extremities Neuro oriented x3, moves all extremities and no focal motor deficits Speech: speech normal Assessment & Plan Assessment/Plan (1) Shortness of breath: (2) Fatigue: (3) Lightheadedness: (4) ABLA (acute blood loss anemia): (5) Occult GI bleeding: (6) Hypokalemia: PLAN: Plan GI bleed -Upper versus lower -BUN/creatinine ratio not significantly abnormal -Continue Protonix drip and await EGD results/recommendations -Hold home aspirin/Eliquis -Transfuse 2 units packed red blood cells -N.p.o. for EGD later today -If EGD unremarkable patient may need colonoscopy -Patient has not had colonoscopy since his last 1 they indicated he needed no further ones with his age -He is unable to recall what year that was performed -Consult gastroenterology--> Case was discussed Acute on chronic anemia -Current hemoglobin 7.5 -Baseline hemoglobin between 11 and 13 -Transfused 2 units packed red blood cells on admission -Continue every 6 hour H&H's and transfuse for less than 7 -Repeat CBC in a.m. -EGD pending -No clinical signs of heart failure at this time monitor closely for Lasix requirements with transfusions Hypokalemia -Resolved -Repeat in a.m. -Mag levels normal Lightheadedness/shortness of breath/generalized weakness -Suspect related to acute anemia -Better today after blood transfusion -Stable on room air -Troponin is negative -No chest pain -BNP is improved from baseline -PT/OT consulted CAD -Previous CABG X 3, ACOSTA to LAD, SVG to D1, SVG-RPDA? 03/27/2004 -WTN-GTI-Apkz RCA w/ 3.5 x 12 mm Promus Stent 08/06/2012 -recent cardiac catheterization from 2017 demonstrated the ACOSTA to the LAD which was atretic, patent saphenous vein graft to the posterior descending artery, saphenous vein graft to diagonal vessel, and patent stenting in the right rodriguez ry artery -Troponin negative on admission -We will hold aspirin for now with anemia PAF -Eliquis on hold secondary to bleeding next normal sinus rhythm -Would like to be able to restart prior to discharge but will need to discuss further with GI after studies are completed -Continue home sotalol Hypertension Continue home isosorbide mononitrate HFpEF -Most recent echo from 2019 shows EF of 60% with a right ventricular systolic pressure of 31 mmHg -Stress echo in 2021 with preserved EF -Continue home Lasix dosing -May need extra dose with blood transfusion -Monitor clinically History of stroke -Eliquis on hold secondary to GI bleed -Restart Eliquis as soon as safe per GI recommendations GERD -Hold home Protonix -IV Protonix drip for now BPH -Continue home Flomax COPD -As needed aerosols -Former smoker History of tobacco abuse -Recommend continued cessation Obesity -BMI 32.8 -Recommend weight loss -Complicates treatment, prognosis, outcomes DVT prophylaxis -SCDs -No chemoprophylaxis secondary to GI bleed CODE STATUS DNR CCA okay for short-term intubation Charges/Coding Visit Charges Inpatient E&M: 27122 Subs Hosp L2
[2022-07-13] MEDS: Polyethylene Glycol 3350 BOWEL PREP 1 BOTTLE PO (15:50)
[2022-07-14] VITALS (11 sets, daily range): BP systolic 92–150; BP diastolic 22–81; PULSE 60–95; RESP 17–18; TEMP 36.2–37.2; O2SAT 95–100; BMI 33.1
[2022-07-14 02:32] LABS: Hematocrit 28.8 % (40-54)
[2022-07-14 07:09] LABS: Absolute Lymphocyte Count 1.03 X10^3/uL (0.83-4.51); Absolute Neutrophil Count 4.7 X10^3/uL (2.0-7.7); Basophil# 0.03 X10^3/uL; Basophil% 0.5 % (0-1); Eosinophil# 0.15 X10^3/uL; Eosinophils% 2.3 % (0-5); Hematocrit 28.9 % (40-54); Hemoglobin 9.2 g/dL (13.0-16.5); Lymphocyte # 1.03 X10^3/ul (0.83-4.51); Lymphocyte % 15.6 % (19-41); Mean Corp Hgb Conc 31.8 g/dL (32-36); Mean Corpuscular Hgb 27.1 pg (27.0-32.0); Mean Corpuscular Volume 85.3 fL (80-94); Mean Platelet Vol. 9.5 fl (6.2-12.0); Monocyte% 10.6 % (0-10); NRBC Flagged by Analyzer 0 % (0-5); Neutrophil # 4.69 X10^3/uL (2.7-7.7); Neutrophil % 70.7 % (47-70); Platelet Count 130 K/mm3 (150-450); RBC Distribution Width CV 15.7 % (11.6-14.6); RBC Distribution Width SD 48.2 fl (35.1-43.9); Red Blood Count 3.39 M/mm3 (4.6-6.2); White Blood Count 6.6 K/mm3 (4.4-11.0)
[2022-07-14 07:53] LABS: Anion Gap 9 (5-15); BUN 10 mg/dL (7-18); BUN/Creat Ratio 10.4 RATIO (10-20); Calcium,Total 8.1 mg/dL (8.5-10.1); Chloride 103 mmol/L (98-107); Creatinine, Serum 0.96 mg/dL (0.70-1.30); EST Glomerular Filtration Rate 80 mL/min (>60); Est Glom Filt Rate - Afr Amer 97 mL/min (>60); Estimated Creatinine Clearance 51.61 ml/min; Glucose 97 mg/dL (74-106); Phosphorus 3.6 mg/dL (2.5-4.9); Potassium 3.3 mmol/L (3.5-5.1); Sodium Level 137 mmol/L (136-145)
[2022-07-14] MEDS: Potassium Chloride Oral Tablet 20 MEQ 40 MEQ PO (08:56)
--- NOTE | 2022-07-14 10:00 | CASEMGMT ---
Addendum entered by Nicole Lainez 07/14/22 14:13: [facility] is able to accept patient with start of care for 07/15/22. NIVIA COLE updated patient. Patient had no further questions or concerns at this time. Addendum entered by Nicole Lainez 07/14/22 13:39: NIVIA COLE back in to patient's room to inquire about HHC decision. Patient and agreeable to HHC and prefer [facility]. NIVIA COLE called Ariane at [facility] and awaiting acceptance. CM will continue to follow this patient and plan for a safe discharge. Original Note: NIVIA COLE reviewed therapy documentation, therapy recommending HHC at discharge. NIVIA COLE in to discuss HHC with patient and . Patient is not sure if he would like HHC. A list of HHC providers including quality and resource use data and consistent with the patient?s preferred geographical region, medical needs, and insurance network were provided from the [employer] Guide. Patient and to discuss possible HHC. CM will continue to follow this patient and plan for a safe discharge.
--- NOTE | 2022-07-14 11:20 | NURSING ---
Emergency documentation started at this time.
--- NOTE | 2022-07-14 11:30 | COLBX_PTH ---
PATIENT: RO SWAN LOC: [facility] U#:[id number] AGE/SX: 82/M ROOM: [facility] RE07/12/[address]: Dr. Kimi London DO : 1940 BED: 1 DIS: 07/14/2022 SPEC #: [id number] RECD: 07/14/22 13:50 STATUS: RAMY REAaliyah #: [id number] BRY: 07/14/22 11:[address]: Jama Benavidez DEPT: SURGICAL PATHOLOGY RECD BY: Kenisha Paul ENTERED: 07/15/22 10:08 SP TYPE: COLON BX DENZEL DR: DO Dr. Jose Polanco MD Tissues: Transverse colon Procedures: Surgery Specimen Level IV HEADER OPERATION: Colonoscopy (MAC) PRE-OP DIAGNOSIS: Acute blood loss anemia TISSUE SUBMITTED: Transverse colon polyp biopsy MICROSCOPIC DIAGNOSIS Transverse colon polyp, biopsy: Tubular adenoma. SJ:beau 07/16/2022 MICROSCOPIC DESCRIPTION Slides are reviewed. GROSS DESCRIPTION Received in fixative is one container labeled with the patient's name and designated transverse colon polyp biopsy. The specimen consists of one irregular fragment of light veliz soft tissue that measures 0.5 x 0.5 x 0.1 cm. The specimen is totally submitted in one cassette. / AM:beau 07/15/2022 TC:1 CPT: 39342
[2022-07-14] MEDS: Lactated Ringers 1,000 ML 15 ML IV (12:00)
--- NOTE | 2022-07-14 12:12 | OP.COLON_ITS ---
Patient Name: Damon Ramos Procedure Date: 07/14/2022 11:41 AM Date of : 1940 Age: 82 Procedure: Colonoscopy Indications: Iron deficiency anemia Providers: Jama Benavidez DO Medicines: Monitored Anesthesia Care Patient Profile: This is an 82 year old male. Refer to note in patient chart for documentation of history and physical. Last Colonoscopy: several years ago. Complications: No immediate complications. Procedure: Pre-Anesthesia Assessment: - Prior to the procedure, a History and Physical was performed, and patient medications and allergies were reviewed. The patient is competent. The risks and benefits of the procedure and the sedation options and risks were discussed with the patient. All questions were answered and informed consent was obtained. Patient identification and proposed procedure were verified by the physician. Mental Status Examination: alert and oriented. Airway Examination: normal oropharyngeal airway and neck mobility. Respiratory Examination: clear to auscultation. CV Examination: normal. Prophylactic Antibiotics: The patient does not require prophylactic antibiotics. Prior Anticoagulants: The patient has taken no previous anticoagulant or antiplatelet agents. ASA Grade Assessment: III - A patient with severe systemic disease. After reviewing the risks and benefits, the patient was deemed in satisfactory condition to undergo the procedure. The anesthesia plan was to use monitored anesthesia care (MAC). Immediately prior to administration of medications, the patient was re-assessed for adequacy to receive sedatives. The heart rate, respiratory rate, oxygen saturations, blood pressure, adequacy of pulmonary ventilation, and response to care were monitored throughout the procedure. The physical status of the patient was re-assessed after the procedure. After I obtained informed consent, the scope was passed under direct vision. Throughout the procedure, the patient's blood pressure, pulse, and oxygen saturations were monitored continuously. The Colonoscope was introduced through the anus and advanced to the terminal ileum. The colonoscopy was performed without difficulty. The patient tolerated the procedure well. The quality of the bowel preparation was adequate. Scope In: 11:51:15 AM Scope Withdrawal Time 0 hours 11 minutes 23 seconds Scope Out: 12:05:41 PM Total Procedure Duration Time 0 hours 14 minutes 26 seconds Findings: A 5 mm polyp was found in the transverse colon. The polyp was sessile. The polyp was removed with a cold snare. Resection and retrieval were complete. Verification of patient identification for the specimen was done. Estimated blood loss was minimal. Multiple small and large-mouthed diverticula were found in the recto-sigmoid colon, sigmoid colon and descending colon. No additional abnormalities were found on retroflexion. Non-bleeding external and internal hemorrhoids were found during retroflexion. The hemorrhoids were moderate and Grade II (internal hemorrhoids that prolapse but reduce spontaneously). The terminal ileum appeared normal. Impression: - One 5 mm polyp in the transverse colon, removed with a cold snare. Resected and retrieved. - Diverticulosis in the recto-sigmoid colon, in the sigmoid colon and in the descending colon. - Non-bleeding external and internal hemorrhoids. - The examined portion of the ileum was normal. Recommendation: - Discharge patient to home. - Resume previous diet. - Continue present medications. - Await pathology results. - Repeat colonoscopy in 5 years for surveillance. Procedure Code(s): --- Professional --- 81074, Colonoscopy, flexible; with removal of tumor(s), polyp(s), or other lesion(s) by snare technique CPT copyright 2017 [employer]. All rights reserved. The codes documented in this report are preliminary and upon head field hockey coach review may be revised to meet current compliance requirements. Jaam Benavidez DO 07/14/2022 12:12:14 PM This report has been signed electronically. Number of Addenda: 0 Note Initiated On: 07/14/2022 11:41 AM
--- NOTE | 2022-07-14 12:13 | OP.CCLET_ITS ---
07/14/2022 Jose Wolfe [address] [place] [address] Re : Colonoscopy procedure for Damon Ramos Dear Dr. Wolfe This procedure was performed on Thursday, July 14, 2022. My impressions and recommendations are as follows: Impressions : - One 5 mm polyp in the transverse colon, removed with a cold snare. Resected and retrieved. - Diverticulosis in the recto-sigmoid colon, in the sigmoid colon and in the descending colon. - Non-bleeding external and internal hemorrhoids. - The examined portion of the ileum was normal. Recommendations : - Discharge patient to home. - Resume previous diet. - Continue present medications. - Await pathology results. - Repeat colonoscopy in 5 years for surveillance. My findings are described in the full procedure note, which is enclosed. If I can be of further assistance, please feel free to contact me at . Sincerely, Jama Benavidez, 07/14/2022 12:12:14 PM This report has been signed electronically.
--- NOTE | 2022-07-14 12:23 | PCM.DC.SUM ---
Providers Date of Admission: 07/12/22 Primary Care Physician: Dr. Jose Wolfe MD Consultations 07/12/22 15:43 Consult: Gastroenterology Routine Consulting Provider: [facility] Reason for Consult: Severe anemia/GIB EMERGENT Consult: No MD Notified: Yes Date Notified: 07/12/22 Time Notified: 14:12 Method of Notification: Verbal Reason For Visit: GI BLEED /SEVERE ANEMIA Diagnosis Discharge Diagnosis (1) Shortness of breath: Status: Acute Code(s): R06.02 - Shortness of breath (2) Fatigue: Status: Acute Code(s): R53.83 - Other fatigue (3) Lightheadedness: Status: Acute Code(s): R42 - Dizziness and giddiness (4) ABLA (acute blood loss anemia): Status: Acute Code(s): D62 - Acute posthemorrhagic anemia (5) Occult GI bleeding: Status: Acute Code(s): R19.5 - Other fecal abnormalities (6) Hypokalemia: Status: Acute Code(s): E87.6 - Hypokalemia Plan GI bleed -Upper versus lower -BUN/creatinine ratio not significantly abnormal -Continue Protonix drip and await EGD results/recommendations -Hold home aspirin/Eliquis -Transfuse 2 units packed red blood cells -N.p.o. for EGD later today -If EGD unremarkable patient may need colonoscopy -Patient has not had colonoscopy since his last 1 they indicated he needed no further ones with his age -He is unable to recall what year that was performed -Consult gastroenterology--> Case was discussed Acute on chronic anemia -Current hemoglobin 7.5 -Baseline hemoglobin between 11 and 13 -Transfused 2 units packed red blood cells on admission -Continue every 6 hour H&H's and transfuse for less than 7 -Repeat CBC in a.m. -EGD pending -No clinical signs of heart failure at this time monitor closely for Lasix requirements with transfusions Hypokalemia -Resolved -Repeat in a.m. -Mag levels normal Lightheadedness/shortness of breath/generalized weakness -Suspect related to acute anemia -Better today after blood transfusion -Stable on room air -Troponin is negative -No chest pain -BNP is improved from baseline -PT/OT consulted CAD -Previous CABG X 3, ACOSTA to LAD, SVG to D1, SVG-RPDA? 03/27/2004 -ZPB-QMM-Damc RCA w/ 3.5 x 12 mm Promus Stent 08/06/2012 -recent cardiac catheterization from 2016 demonstrated the ACOSTA to the LAD which was atretic, patent saphenous vein graft to the posterior descending artery, saphenous vein graft to diagonal vessel, and patent stenting in the right coronary artery -Troponin negative on admission -We will hold aspirin for now with anemia PAF -Eliquis on hold secondary to bleeding next normal sinus rhythm -Would like to be able to restart prior to discharge but will need to discuss further with GI after studies are completed -Continue home sotalol Hypertension Continue home isosorbide mononitrate HFpEF -Most recent echo from 2019 shows EF of 60% with a right ventricular systolic pressure of 31 mmHg -Stress echo in 2021 with preserved EF -Continue home Lasix dosing -May need extra dose with blood transfusion -Monitor clinically History of stroke -Eliquis on hold secondary to GI bleed -Restart Eliquis as soon as safe per GI recommendations GERD -Hold home Protonix -IV Protonix drip for now BPH -Continue home Flomax COPD -As needed aerosols -Former smoker History of tobacco abuse -Recommend continued cessation Obesity -BMI 32.8 -Recommend weight loss -Complicates treatment, prognosis, outcomes DVT prophylaxis -SCDs -No chemoprophylaxis secondary to GI bleed CODE STATUS DNR CCA okay for short-term intubation Medications at Discharge Home Medications tamsulosin 0.4 mg capsule 0.4 mg PO DAILY prostate 05/23/13 nitroglycerin 0.4 mg sublingual tablet 0.4 mg sublingual Q5M PRN Chest Pain #25 tabs 08/11/21 isosorbide mononitrate 30 mg tablet,extended release 24 hr 30 mg PO DAILY #90 tabs 08/31/21 sotalol 120 mg tablet 120 mg PO BID heart/blood pressure #180 tabs 11/19/21 aspirin 81 mg chewable tablet (Aspirin Childrens) 81 mg PO DAILY 12/24/21 fluticasone furoate 100 mcg-vilanterol 25 mcg/dose inhalation powder (Breo Ellipta) 1 inh inhalation DAILY 12/24/21 atorvastatin 80 mg tablet See Rx Instructions .Route .COMPLEX #90 tabs 05/14/22 apixaban 5 mg tablet (Eliquis) 5 mg PO BID #180 tabs 05/24/22 furosemide 40 mg tablet 40 mg PO Q OTHER DAY #90 tabs 06/25/22 pantoprazole 40 mg tablet,delayed release (Protonix) 40 mg PO DAILY #60 tabs 07/14/22 Hospital Course Procedures Blood transfusion, Colonoscopy and EGD Summary of Care Provided Minutes Spent on Discharge: 37 Hospital Course: Mr. Ramos is an 82-year-old white male who presented to emergency department [facility] on 07/12/2022 complaining of shortness of breath, fatigue, and some intermittent worsening tightness in his chest. The patient reported that he had been having issues over the last 2 to 3 weeks. He was seen by cardiology nurse practitioner on 06/25/2022 at which time his isosorbide was adjusted however he has had no improvement in symptoms. He reported at the time of presentation that his symptoms were so bad that he was useless at home and not able to do much at all. He indicated coming into the hospital he could hardly walk down the hallway because his fatigue and shortness of breath were so severe.? He reported some dark tarry stool. He denied any abdominal pain, hematochezia, or hematemesis. He was chronically anticoagulated with aspirin and Eliquis. Upon presentation to the emergency department his temperature was 96.6, heart rate 91, blood pressure 110/72, respiratory rate 22 and oxygen saturation was 98% on room air.? His CBC showed a normal leukocyte count however his hemoglobin was 5 (baseline 11.0-13).? His platelet count was normal.? His chemistry panel showed a mild hypokalemia with potassium of 3.4.? His troponin was normal at 15 and his BNP was 342 but improving overall.? His EKG showed no ST-T wave changes consistent with acute ischemia but did show some mild lateral ST depression.? The patient was chest pain-free at the time of my evaluation.? I suspect this was related to his severe anemia.. He was given IV Lasix in the emergency department 40 mg x 1 dose and 2 units of packed red blood cells were ordered for his hemoglobin of 5. Protonix drip was also initiated and he was admitted to PCU with a consultation to gastroenterology. He was evaluated by gastroenterology later that day and an EGD was recommended. Through the night his repeat hemoglobin after transfusion resulted with a hemoglobin of 6.9 and he was therefore transfused with 2 additional units of blood for total of 4 units through his hospital stay. His Eliquis and aspirin were held on admission. His EGD showed normal esophagus in the upper third and middle esophagus, lower esophageal reflux esophagitis that was biopsied, small hiatal hernia, gastric antral vascular ectasia without bleeding, and a normal second portion of the duodenum. Given his severe hemoglobin drop and no significant satisfaction with the EGD, a colonoscopy was performed. Colonoscopy showed 1 5 mm polyp in the transverse colon that was removed with a cold snare and sent for pathology, diverticulosis in the rectosigmoid, sigmoid, and descending colon, and nonbleeding internal and external hemorrhoids. I discussed the case with gastroenterology and with his previous stroke and history of paroxysmal atrial fibrillation he is at high risk with an elevated Chads Vasc score for concurrent cardioembolic events. Dr. Benavidez felt we could restart his aspirin and Plavix, discharged him on Protonix p.o. 40 mg twice daily and follow him up as an outpatient for capsule endoscopy. We would like him to get a follow-up CBC in the next week and have instructed him to call his primary care physician to obtain a follow-up CBC to be done within the next 7 days. His prescription for Protonix was sent to the pharmacy and he was discharged home in stable condition. Hemoglobin at discharge was stable over 48 hours at 9.2 and the patient was feeling much improved compared to the symptoms he had on presentation. He is to follow-up with his primary care physician in the next [address] Benavidez within the next 2 weeks. We will be discharged home with home health care Discharge diagnoses: GI bleed Gave syndrome Colonic polyp Reflux esophagitis Nonbleeding internal and external hemorrhoids Acute on chronic anemia Hypokalemia-resolved Lightheadedness-resolved Shortness of breath-resolved Dentalized weakness-improved after transfusion CAD PAF Hypertension HFpEF History of stroke GERD BPH COPD History of tobacco abuse Obesity Physical Exam Const alert, oriented x3, no apparent distress and well nourished Constitutional Narrative: Elderly white male sitting up in a chair at the bedside, present, patient appears comfortable and nontoxic General Appearance: cooperative, comfortable, well kempt and well developed Orientation / Consciousness: awake, oriented to person, oriented to place and oriented to time Exam Limitations: no limitations Nutritional Appearance: obese HEENT normocephalic, head/scalp atraumatic and moist oral mucous membranes; Negative for hearing grossly normal bilaterally HEENT Narrative: Moderate hearing loss, Mallampati 2-3, no thrush, dentures in place Eyes PERRL and EOMs intact bilaterally; Negative for conjunctivae normal Eyes Narrative: Still with conjunctival pallor however improved since admission, no scleral icterus Neck no lymphadenopathy, supple and no JVD Neck Narrative: Trachea midline, no thyroid enlargement Resp normal respiratory effort, no retractions, no use of accessory muscles and clear to auscultation bilaterally Resp Narrative: Diminished but clear Auscultation: Negative for crackles, rhonchi or wheezes Cardio regular rate, regular rhythm, S1 normal heart sound, S2 normal heart sound, no murmurs, no rub, no gallops and no clicks GI normal to inspection, nondistended, normoactive bowel sounds, soft to palpation and non-tender Extremity Extremity Narrative: 2+ pedal pulses, no cyanosis or clubbing, trace to 1+ pitting edema bilateral lower extremities Skin no rashes or lesions noted, no wounds, skin turgor normal, no jaundice, no petechiae and no mottling Skin Narrative: Palmar creases still light, skin is pale Neuro oriented x3, CN's II-XII intact bilaterally, moves all extremities and no focal motor deficits Neuro Narrative: Mild generalized weakness with no focal deficits Speech: speech normal Psych affect normal Psych Narrative: Extremely pleasant and appropriately interactive Weight / BMI Weight Weight: 90.4 kg Body Mass Index (BMI) 33.1 ABG / Lab / Microbiology Data Result Diagrams: 07/14/22 06:22 07/14/22 06:22 Laboratory: Laboratory Results - last 24 hr 07/12/22 12:35: Crossmatch See Detail 07/13/22 12:47: Hgb 6.4 L, Hct 21.4 L 07/14/22 02:23: Hgb 9.0 L, Hct 28.8 L 07/14/22 06:22: WBC 6.6, RBC 3.39 L, Hgb 9.2 L, Hct 28.9 L, MCV 85.3, MCH 27.1, MCHC 31.8 L, RDW Std Deviation 48.2 H, RDW Coeff of Randall 15.7 H, Plt Count 130 L, MPV 9.5, Immature Gran % (Auto) 0.300, Neut % (Auto) 70.7 H, Lymph % (Auto) 15.6 L, [place] % (Auto) 10.6 H, Eos % (Auto) 2.3, Baso % (Auto) 0.5, Absolute Neuts (auto) 4.7, Absolute Lymphs (auto) 1.03, Nucleated RBC % 0 07/14/22 06:22: Sodium 137, Potassium 3.3 L, Chloride 103, Carbon Dioxide 25.0, Anion Gap 9, BUN 10, Creatinine 0.96, Estim Creat Clear Calc 51.61, Est GFR (MDRD) Af Amer 97, Est GFR (MDRD) Non-Af 80, BUN/Creatinine Ratio 10.4, Glucose 97, Calcium 8.1 L, Phosphorus 3.6 Microbiology: Microbiology 07/12/22 12:35 Stool Stool Occult Blood (DANE) - Final Occult Blood Positive D/C Instructions Discharge Diet: Low fat / Low cholesterol Discharge Activity: Return to Normal Activity Meaningful Use Info Meaningful Use Diagnoses (Choose all that apply): None applicable Discharge Plan Admission Admit Date/Time: 07/12/22 14:06 Primary Reason for Your Visit: Shortness of breath/weakness/fatigue Attending Provider: Kimi London Primary Care Provider: Jose Wolfe Instructions Additional Instructions / Restrictions: 1. Please take Protonix twice daily as prescribed 2. Okay to restart aspirin and Eliquis per Dr. Benavidez however watch closely for any dark tarry stools and call his office immediately if this reoccurs 3. Please call primary care physician (Dr. Wolfe) later today or tomorrow to obtain an order for a complete blood count to be done within the next 5 to 7 days to recheck your hemoglobin for stability Discharge Orders/Prescriptions Prescriptions: New pantoprazole [Protonix] 40 mg tablet,delayed release (DR/EC) 40 mg PO DAILY Qty: 60 1RF Continued fluticasone furoate-vilanterol [Breo Ellipta] 100-25 mcg/dose blister with device 1 inh inhalation DAILY aspirin [Aspirin Childrens] 81 mg tablet,chewable 81 mg PO DAILY furosemide 40 mg tablet 40 mg PO Q OTHER DAY Qty: 90 3RF tamsulosin 0.4 MG capsule 0.4 mg PO DAILY nitroglycerin 0.4 mg tablet, sublingual 0.4 mg SUBLINGUAL Q5M PRN (Reason: Chest Pain) Qty: 25 4RF Rx Instructions: Place one tab under tongue every 5 minutes x 3 doses as needed isosorbide mononitrate 30 mg tablet extended release 24 hr 30 mg PO DAILY Qty: 90 4RF sotalol 120 mg tablet 120 mg PO BID Qty: 180 3RF atorvastatin 80 mg tablet See Rx Instructions .ROUTE .COMPLEX Qty: 90 3RF Dose Instruction: TAKE 1 TABLET DAILY FOR CHOLESTEROL Rx Instructions: TAKE 1 TABLET DAILY FOR CHOLESTEROL Eliquis 5 mg tablet 5 mg PO BID Qty: 180 4RF Discontinued pantoprazole 40 MG tablet 40 mg PO DAILY Referrals / Follow Up: Jama Benavidez DO [Med Staff - Active Staff] - 07/23/22 8:00 am (Call later today or tomorrow to make a follow-up appointment to be seen within the next 2 weeks for hospital follow-up) Jose Wolfe MD [Primary Care Provider] - 07/28/22 11:20 am (Call office Tuesday07-20-22 to make sure the order was place for a follow-up CBC. ) Disposition Disposition (needs filled in before D/C Order can be placed): Home Health Service Charges/Coding Visit Charges Inpatient E&M: 71783 Disch Hosp
[2022-07-14] MEDS: Sotalol Hydrochloride 80 MG Tablet 120 MG PO (13:28)
[2022-07-14] MEDS: Atorvastatin Calcium 80 MG Tablet PO (13:28)
[2022-07-14] MEDS: Tamsulosin HCl 0.4 MG Capsule PO (13:28)
[2022-07-14] MEDS: Isosorbide Mononitrate 30 MG Tablet PO (13:28)
[2022-07-14] MEDS: Pantoprazole Sodium 40 MG Tablet PO (13:34)
== END 2022-07-14 15:05 | disposition home health service (06) | DRG 378 ==
LOC: ED 13:58 → PCU 14:21
PROVIDERS: Anesthesiology; Internal Medicine Gastroenterology; Admitting Provider Internal Medicine; Emergency Provider Emergency Medicine; PCP Internal Medicine; Visit Provider Internal Medicine
PROC: 0DJ08ZZ Inspection of Upper Intestinal Tract, Via Natural or Artificial Opening Endoscopic (ICD-10-PCS; CPT 43235; principal; 2022-07-13 11:25)
PROC: 0DJD8ZZ Inspection of Lower Intestinal Tract, Via Natural or Artificial Opening Endoscopic (ICD-10-PCS; CPT 45378; principal; 2022-07-14 11:25)
DX: K57.31 Diverticulosis of large intestine without perforation or abscess with bleeding (principal); I50.32 Chronic diastolic (congestive) heart failure; D62 Acute posthemorrhagic anemia; I11.0 Hypertensive heart disease with heart failure; D69.6 Thrombocytopenia, unspecified; I48.0 Paroxysmal atrial fibrillation; J44.9 Chronic obstructive pulmonary disease, unspecified; K31.819 Angiodysplasia of stomach and duodenum without bleeding; I25.10 Atherosclerotic heart disease of native coronary artery without angina pectoris; E78.2 Mixed hyperlipidemia; E87.6 Hypokalemia; K21.00 Gastro-esophageal reflux disease with esophagitis, without bleeding; K44.9 Diaphragmatic hernia without obstruction or gangrene; K64.1 Second degree hemorrhoids; D12.3 Benign neoplasm of transverse colon; N40.0 Benign prostatic hyperplasia without lower urinary tract symptoms; E66.9 Obesity, unspecified; Z68.32 Body mass index [BMI] 32.0-32.9, adult; Z66 Do not resuscitate; Z95.1 Presence of aortocoronary bypass graft; Z95.5 Presence of coronary angioplasty implant and graft; Z90.49 Acquired absence of other specified parts of digestive tract; Z79.82 Long term (current) use of aspirin; Z79.01 Long term (current) use of anticoagulants; Z79.891 Long term (current) use of opiate analgesic; Z79.899 Other long term (current) drug therapy; Z86.73 Personal history of transient ischemic attack (TIA), and cerebral infarction without residual deficits; Z86.74 Personal history of sudden cardiac arrest; Z87.891 Personal history of nicotine dependence
CPT/HCPCS: 36415; 71046; 80048; 80053; 82274; 83735; 83880; 84100; 84484; 85014; 85018; 85025; 85610; 85730; 86850; 86900; 86901; 86920; 86922; 88305; 93005; 94640; 97162; 97166; 99284; J7040; J7120; P9016; A4216; J1940; J2405; J3490

== ENCOUNTER → 2022-07-20 | Outpatient (CLI) | payer MEDICARE, OTHER, SELFPAY ==
[2022-07-20 11:36] LABS: Absolute Lymphocyte Count 0.97 X10^3/uL (0.83-4.51); Absolute Neutrophil Count 3.8 X10^3/uL (2.0-7.7); Basophil# 0.03 X10^3/uL; Basophil% 0.5 % (0-1); Eosinophil# 0.13 X10^3/uL; Eosinophils% 2.3 % (0-5); Hematocrit 33.4 % (40-54); Hemoglobin 10.5 g/dL (13.0-16.5); Lymphocyte # 0.97 X10^3/ul (0.83-4.51); Lymphocyte % 17.3 % (19-41); Mean Corp Hgb Conc 31.4 g/dL (32-36); Mean Corpuscular Hgb 27.5 pg (27.0-32.0); Mean Corpuscular Volume 87.4 fL (80-94); Mean Platelet Vol. 9.5 fl (6.2-12.0); Monocyte# 0.66 X10^3/uL; Monocyte% 11.7 % (0-10); NRBC Flagged by Analyzer 0 % (0-5); Neutrophil % 67.7 % (47-70); Platelet Count 158 K/mm3 (150-450); RBC Distribution Width CV 15.8 % (11.6-14.6); RBC Distribution Width SD 49.8 fl (35.1-43.9); Red Blood Count 3.82 M/mm3 (4.6-6.2); White Blood Count 5.6 K/mm3 (4.4-11.0)
== END | disposition home or self-care (01) ==
LOC: LAB 11:01
PROVIDERS: PCP Internal Medicine; Referring Provider Nurse Practitioner Adult Health; Visit Provider Nurse Practitioner Adult Health
DX: D62 Acute posthemorrhagic anemia (principal); K31.819 Angiodysplasia of stomach and duodenum without bleeding
CPT/HCPCS: 36415; 85025

== ENCOUNTER 2022-09-02 08:55 | Day surgery (SDC) | payer MEDICARE, OTHER, SELFPAY ==
[2022-09-02] VITALS (8 sets, daily range): BP systolic 91–131; BP diastolic 59–82; PULSE 54–66; RESP 16; TEMP 36.1–36.2; O2SAT 95–99; BMI 32.3
[2022-09-02] MEDS: Lactated Ringers 1,000 ML 15 ML IV (09:38)
--- NOTE | 2022-09-02 10:10 | PCM.HP.BLA ---
History and Physical Date of Admission: 09/02/22 RO SWAN, is a 82 M who presents to the office today for hospital follow up. [facility] hospitalization 08.10.18-08.14.18 for sepsis with E/Coli and pseudomonas in blood cultures with origination suspected to be r/t colitis seen on CT scan. C.difficile stool negative. He was treated with cipro and flagyl with improvement and discharged home.? CT abd/pel 08.11.18?noting bowel thickening of sigmoid colon, colitis versus underlying mass; small amount of free fluid; urinary bladder thickening, cystitis.? ? Ro established with this clinic through [facility] hospitalization 07.12.22-07.14.22. ED presentation for chest tightness and dyspnea with a history of CAD s/p CABG and AFib utilizing Eliquis. Biochemical workup found hgb 5.0 and hemoccult + and he was admitted. 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 ? Colonoscopy 07.14.22?one 5mm TA polyp; diverticulosis RS, sigmoid and descending colons; nonbleeding internal/external hemorrhoids. Ileum WNL.? He was discharged following 2 units PRBC and a hgb of 9.2 on 07.14.22.? ? Pt states he has been doing well since the hospital visit. Still having some SOB and intermittent chest discomfort. Is taking an pantoprazole 40mg BID which is doing well at controlling sx of heartburn. Bowels have been normal with atleast one movement a day. Denies any blood or dark colored stools. States he was diagnosed with Anemia many years ago. Does not see a expenditure requisition clerk at this time. ? ROS Const Constitutional: Positive for fatigue ENT ENT: No difficulty swallowing Gastro GI: Positive for abdominal pain and constipation; No belching, bloating, change in bowel habits, change in stool character, coffee ground emesis, cramping, diarrhea, heartburn, difficulty swallowing, feeling full early, excessive flatus, incontinent of stools, Vomiting blood/hematemesis, Blood in stool, loose stools, Black,tarry stools, nausea/dyspepsia, pain with swallowing, vomiting or other Musc Musculoskeletal: Positive for joint pain, back pain, joint swelling, stiffness, Arthritis and sciatica Skin Skin: No yellowing of the eye or itchy eyes Psych Psychiatric: No anxiety and No depression Endo Endocrine: Positive for fatigue Aller/Imm Allergy/Immunologic: No itchy eyes Heladio/Lymp Hematologic/Lymphatic: No easy bleeding or easy bruising Exam Const General: cooperative and comfortable Nutritional Appearance: average body habitus and well nourished HENDC Head: normal to inspection Ears: hearing grossly normal bilaterally Nose: external nose normal Face and sinus: normal facial exam Mouth: oral mucosae normal Throat: posterior oropharynx normal Eyes General: appearance normal, both eyes and all related structures Neck Neck: normal visual inspection Chest Chest palpation & inspection: normal inspection of the chest and normal palpation of entire chest wall Resp Effort & Inspection: normal respiratory effort Auscultation: Bilateral: Clear to Auscultation Cardio Palpation: normal PMI Rate: regular rate Rhythm: regular rhythm GI Inspection: normal to inspection Auscultation: normal bowel sounds Percussion: normal to percussion Palpation: no hepatosplenomegaly Skin General: no rashes or lesions noted Neuro General: patient alert Extrem General: normal to inspection Psych Affect: normal affect Office Procedures Procedure Administration Route: PO Administration Location: [facility] Dispensed Units: 1 Capsule Lot Number: [id number] Expiration Date: 04/14/23 Capsule ID Number: [id number] Consent Form Signed: Yes Reason for Pill Capsule Endoscopy: GAVE Comments: Pt tolerated procedure well. All questions were awnsered. Pill Cam Billing-In Office: [id number] GI TRACT CAPSULE ENDOSCOPY Quality Reporting Tobacco Screening ([facility] 138) Smoking Status: Former smoker Assessment and Plan Assessment and Plan (1) GAVE (gastric antral vascular ectasia): ?Status:?Acute ?Plan: He has been on iron therapy and has had APC for treatment of his gastric antral vascular ectasia as a possible cause of his blood loss anemia.? He will undergo radiofrequency ablation for refractory anemia (2) Anemia: ?Status:?Acute ?Plan: .? We will also perform a capsule endoscopy to look at his small bowel for any signs of GI blood loss.? Thus far his studies for celiac disease are negative also his hemoglobin has increased to 10.5 from 5.8 with iron transfusions blood transfusion. I have examined the patient and the H&P has been reviewed. There are no clinical changes since date of exam.
--- NOTE | 2022-09-02 10:38 | OP.EGD_ITS ---
Patient Name: Damon Ramos Procedure Date: 09/02/2022 10:03 AM Date of : 1940 Age: 82 Procedure: Upper GI endoscopy Indications: Iron deficiency anemia Providers: DO Ivis Arizmendi MD: Jose Wolfe Medicines: Monitored Anesthesia Care Patient Profile: This is an 82 year old male. Refer to note in patient chart for documentation of history and physical. Patient has symptoms of acute dyspepsia. Complications: No immediate complications. Procedure: Pre-Anesthesia Assessment: - Prior to the procedure, a History and Physical was performed, and patient medications and allergies were reviewed. The patient is competent. The risks and benefits of the procedure and the sedation options and risks were discussed with the patient. All questions were answered and informed consent was obtained. Patient identification and proposed procedure were verified by the physician. Mental Status Examination: alert and oriented. Airway Examination: normal oropharyngeal airway and neck mobility. Respiratory Examination: clear to auscultation. CV Examination: normal. Prophylactic Antibiotics: The patient does not require prophylactic antibiotics. Prior Anticoagulants: The patient has taken no previous anticoagulant or antiplatelet agents. ASA Grade Assessment: II - A patient with mild systemic disease. After reviewing the risks and benefits, the patient was deemed in satisfactory condition to undergo the procedure. The anesthesia plan was to use monitored anesthesia care (MAC). Immediately prior to administration of medications, the patient was re-assessed for adequacy to receive sedatives. The heart rate, respiratory rate, oxygen saturations, blood pressure, adequacy of pulmonary ventilation, and response to care were monitored throughout the procedure. The physical status of the patient was re-assessed after the procedure. After obtaining informed consent, the endoscope was passed under direct vision. Throughout the procedure, the patient's blood pressure, pulse, and oxygen saturations were monitored continuously. The gastroscope was introduced through the mouth, and advanced to the second part of duodenum. The upper GI endoscopy was accomplished without difficulty. The patient tolerated the procedure well. Scope In: 10:15:30 AM Scope Out: 10:24:56 AM Total Procedure Duration Time 0 hours 9 minutes 26 seconds Findings: The examined esophagus was normal. 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 Focal radiofrequency ablation of gastric antral vascular ectasia in the gastric antrum was performed. Ablation sites were located at 45 cm from the incisors. With the endoscope in place, the position and extent of the abnormal mucosa and appropriate anatomic landmarks were noted. The abnormal mucosa was irrigated with saline. Gastric contents were suctioned. The endoscope was then removed from the patient. The Barrx-90 Ultra radiofrequency ablation catheter was attached to the tip of the endoscope. The endoscope with the attached radiofrequency ablation catheter was then passed under direct vision and advanced to the areas of abnormal mucosa. The radiofrequency ablation catheter was placed in contact with the surface of the abnormal mucosa under direct visualization and energy was applied twice at 12 J/cm2. Ablation was repeated in a likewise fashion to all visible abnormal mucosa. The ablation zone was cleaned of coagulative debris. The ablation catheter and endoscope were then removed and the catheter was cleaned. The catheter and endoscope were reinserted. A second round of ablation was then performed. Energy was applied twice at 12 J/cm2 to retreat the areas of abnormal mucosa that had been treated with the first series of ablations. The areas where abnormal mucosa had been ablated were examined. Areas of abnormal mucosa appeared completely ablated. Whitish changes of ablated mucosa were present. No gross lesions were noted in the first portion of the duodenum. Impression: - Normal esophagus. - Gastric antral vascular ectasia with bleeding. Treated with radiofrequency ablation. - No gross lesions in the first portion of the duodenum. - No specimens collected. Recommendation: - Discharge patient to home. - Resume previous diet. - Continue present medications. Procedure Code(s): --- Professional --- 76305, Esophagogastroduodenoscopy, flexible, transoral; with control of bleeding, any method CPT copyright 2017 [employer]. All rights reserved. The codes documented in this report are preliminary and upon station jailer review may be revised to meet current compliance requirements. Jama Benavidez DO 09/02/2022 10:38:34 AM This report has been signed electronically. Number of Addenda: 0 Note Initiated On: 09/02/2022 10:03 AM
--- NOTE | 2022-09-02 10:39 | OP.CCLET_ITS ---
09/02/2022 Jose Wolfe [address] [place] [address] Re : Upper GI endoscopy procedure for Damon Ramos Dear Dr. Wolfe This procedure was performed on August. My impressions and recommendations are as follows: Impressions : - Normal esophagus. - Gastric antral vascular ectasia with bleeding. Treated with radiofrequency ablation. - No gross lesions in the first portion of the duodenum. - No specimens collected. Recommendations : - Discharge patient to home. - Resume previous diet. - Continue present medications. My findings are described in the full procedure note, which is enclosed. If I can be of further assistance, please feel free to contact me at . Sincerely, Jama Benavidez, 09/02/2022 10:38:34 AM This report has been signed electronically.
== END 2022-09-02 13:02 | disposition home or self-care (01) ==
LOC: EN 08:55 → AC 08:57
PROVIDERS: PCP Internal Medicine; Referring Provider Internal Medicine; Visit Provider Internal Medicine Gastroenterology
PROC: 0DJ08ZZ Inspection of Upper Intestinal Tract, Via Natural or Artificial Opening Endoscopic (ICD-10-PCS; CPT 43235; principal; 2022-09-02 10:10)
DX: K31.811 Angiodysplasia of stomach and duodenum with bleeding (principal); J44.9 Chronic obstructive pulmonary disease, unspecified; I50.32 Chronic diastolic (congestive) heart failure; I11.0 Hypertensive heart disease with heart failure; I48.0 Paroxysmal atrial fibrillation; D50.0 Iron deficiency anemia secondary to blood loss (chronic); Z87.891 Personal history of nicotine dependence; I25.10 Atherosclerotic heart disease of native coronary artery without angina pectoris; Z79.01 Long term (current) use of anticoagulants; Z86.010 Personal history of colon polyps; Z87.19 Personal history of other diseases of the digestive system; E78.00 Pure hypercholesterolemia, unspecified; Z79.899 Other long term (current) drug therapy
CPT/HCPCS: 43270; J7120

== ENCOUNTER → 2023-02-08 | Outpatient (CLI) | payer MEDICARE, OTHER, SELFPAY ==
[2023-02-08 10:47] LABS: Hematocrit 36.1 % (40-54); Hemoglobin 11.5 g/dL (13.0-16.5); Mean Corp Hgb Conc 31.9 g/dL (32-36); Mean Corpuscular Hgb 29.3 pg (27.0-32.0); Mean Corpuscular Volume 92.1 fL (80-94); Mean Platelet Vol. 10.4 fl (6.2-12.0); Platelet Count 159 K/mm3 (150-450); Red Blood Count 3.92 M/mm3 (4.6-6.2); White Blood Count 5.7 K/mm3 (4.4-11.0)
[2023-02-08 11:21] LABS: Vitamin B12 355 pg/mL (211-911)
[2023-02-08 11:35] LABS: ALB/GLOB Ratio 1.1 RATIO (0.9-2.4); AST(SGOT) 16 U/L (15-37); Alanine Aminotransfer ALT/SGPT 23 U/L (16-61); Albumin, Serum 3.3 g/dL (3.2-5.0); Alkaline Phosphatase 95 U/L (45-117); Anion Gap 4 (5-15); BUN 13 mg/dL (7-18); Calcium,Total 8.8 mg/dL (8.5-10.1); Chloride 107 mmol/L (98-107); Cholesterol 87 mg/dL (200); Creatinine, Serum 1.18 mg/dL (0.70-1.30); EST Glomerular Filtration Rate 63 mL/min (>60); Est Glom Filt Rate - Afr Amer 76 mL/min (>60); Ferritin 13 ng/mL (26-388); Glucose 113 mg/dL (74-106); High Density Lipoprotein 35 mg/dL; Potassium 4.4 mmol/L (3.5-5.1); Protein, Total 6.3 g/dL (6.4-8.2); Sodium Level 138 mmol/L (136-145); Triglycerides 116 mg/dL; Very Low Density Lipoprotein 23 mg/dL (5-40)
== END | disposition home or self-care (01) ==
PROVIDERS: PCP Internal Medicine; Referring Provider Psychiatry & Neurology Neurology; Visit Provider Psychiatry & Neurology Neurology
DX: E78.5 Hyperlipidemia, unspecified (principal); G45.9 Transient cerebral ischemic attack, unspecified; D64.9 Anemia, unspecified
CPT/HCPCS: 80053; 80061; 82607; 82728; 82746; 85027

== ENCOUNTER → 2023-02-14 | Outpatient (CLI) | payer MEDICARE, OTHER, SELFPAY ==
--- NOTE | 2023-02-14 14:41 | CDU_ITS ---
Reason For Study: TIA Rt. Velocities/BP Lt. Velocities/BP Prox CCA 76/9 cm/sec. Prox CCA 118/10 cm/sec. Mid CCA 91/15 cm/sec. Mid CCA 78/13 cm/sec. Dist CCA 78/14 cm/sec. Dist CCA 86/18 cm/sec. Prox ICA 70/16 cm/sec. Prox ICA 91/14 cm/sec. Mid ICA 105/28 cm/sec. Mid ICA 81/25 cm/sec. Dist ICA 81/23 cm/sec. Dist ICA 85/20 cm/sec. Rt. ICA/CCA = 1.2. Lt. ICA/CCA = 1.2. Prox ECA 219 cm/sec. Prox ECA 71 cm/sec. Rt. Vert. 37/10 cm/sec. Lt. Vert. 40/10 cm/sec. Right Extracranial There is heterogeneous, irregular atherosclerotic plaque noted in the right common carotid artery. There is heterogeneous, irregular atherosclerotic plaque noted in the right internal carotid artery. There is heterogeneous, irregular atherosclerotic plaque noted in the right external carotid artery. Antegrade flow is noted in the right vertebral artery. Left Extracranial There is intimal thickening but no significant atherosclerotic plaque noted in the left common carotid artery. There is heterogeneous, irregular atherosclerotic plaque noted in the left internal carotid artery. There is intimal thickening but no significant atherosclerotic plaque noted in the left external carotid artery. Antegrade flow is noted in the left vertebral artery. Procedure Carotid Duplex [id number]. This is a Carotid Duplex examination using B-mode, color flow and specral Doppler. Exam performed in department. VL/Carotid Duplex Ultrasound Interpretation Summary Irregular calcific plaque with shadowing at the proximal right internal carotid artery with less than 50% stenosis Greater than 50% stenosis right external carotid artery Minimal irregular plaque at the proximal left internal carotid artery with less than 50% stenosis Less than 50% stenosis left external carotid artery Patent and antegrade vertebral arteries bilaterally Only change from January 20, 2022 is increased degree of stenosis involving the rig ht external carotid artery. Ordering Physician: Valeriano Concepcion Referring Physician: Jose Wolfe Performed By: Adelaide Bauer, NANI, RVT
--- NOTE | 2023-02-14 15:21 | MRI_ITS ---
STUDY: MRI BRAIN WITHOUT CONTRAST REASON FOR EXAM: Male, 82 years old. Recurrent TIAs; episodes of speech difficulty and confusion TECHNIQUE: Standardized multiplanar fat and water weighted pulse sequences were obtained. COMPARISON: MRI of the brain January 01, 2022 FINDINGS: Mild atrophy and periventricular white matter ischemic changes without evidence for acute infarct.. Old lacunar infarct in left basal ganglia.. Normal thalami. There is no extra-axial fluid accumulation. Normal flow voids within the major intracranial circulation suggesting patency by spin echo criteria. Normal sella turcica, pituitary gland, infundibular stalk, optic chiasm and hypothalamus. Normal tectal plate and pineal gland. Normal midbrain, jose m and medulla. Normal cerebellum. Normal basal cisterns. Normal bilateral temporal bones. Normal bilateral internal auditory canals. Postsurgical changes of the orbits. Normal visualized paranasal sinuses. Normal calvarium and skull base. Normal visualized soft tissue structures. Normal visualized upper cervical spine. No significant change since prior study MRI/Brain without Contrast IMPRESSION: Mild atrophy and periventricular white matter ischemic change. No evidence for acute infarction. Old left lacunar infarct. Electronically Signed: Joe Miner MD at 16:42 EDT ,
== END | disposition home or self-care (01) ==
LOC: CVS 14:39
PROVIDERS: PCP Internal Medicine; Referring Provider Psychiatry & Neurology Neurology; Visit Provider Psychiatry & Neurology Neurology
DX: R42 Dizziness and giddiness (principal); I69.322 Dysarthria following cerebral infarction
CPT/HCPCS: 70551; 93880

== ENCOUNTER 2023-09-24 17:44 | Inpatient (IN) | payer MEDICARE, OTHER, SELFPAY ==
[2023-09-24] VITALS (8 sets, daily range): BP systolic 125–193; BP diastolic 66–95; PULSE 64–78; RESP 18–26; TEMP 35.2–37.5; O2SAT 89–95; BMI 27.7
--- NOTE | 2023-09-24 20:26 | EKG12_ITS ---
Test Reason : DYSRHYTHMIA Blood Pressure : / mmHG Vent. Rate : 065 BPM Atrial Rate : 065 BPM P-R Int : 216 ms QRS Dur : 084 ms QT Int : 378 ms P-R-T Axes : 018 035 120 degrees QTc Int : 393 ms Sinus rhythm with marked sinus arrhythmia with 1st degree A-V block T wave abnormality, consider anterolateral ischemia Abnormal ECG Confirmed by Rufus Harry ([id number]), city editor FUNMI AMES ([id number]) on 09/27/2023 7:31:48 AM Referred By: Confirmed By:Rufus Harry
--- NOTE | 2023-09-24 20:27 | CT_ITS ---
INDICATION: headache EXAMINATION: CT BRAIN - CT Head or Brain W/O Contrast Injection TECHNIQUE: Multiple axial images were obtained of the head with sagittal and coronal reconstructed images. Individualized dose optimization techniques were used for this CT. IV contrast dosage and agent: None. COMPARISON: 02/14/2023 MRI. FINDINGS: BRAIN PARENCHYMA: No evidence of an acute infarct or intracranial hemorrhage. No evidence of a mass. Chronic bilateral basal ganglia infarcts. Chronic left cerebellar infarct. White matter changes consistent with mild to moderate chronic microvascular disease. CSF SPACES: The ventricles, sulci and subarachnoid cisterns are appropriate for age. CALVARIUM, SKULL BASE, PARANASAL SINUSES AND MASTOID AIR CELLS: No fracture. Mastoid air cells are clear. Visualized paranasal sinuses are unremarkable. ORBITS: The globes, extraocular muscles, optic nerves and retrobulbar fat are unremarkable. CT/Brain/Head without Contrast IMPRESSION: No acute intracranial abnormality. Electronically Signed: Joe Chauhan DO at 22:27 EST ,
--- NOTE | 2023-09-24 20:30 | EX.ED.DYSGE1 ---
HPI <TANGELA Dixon - Last Filed: 09/24/23 21:53> History of Present Illness Chief Complaint: General Illness Narrative Narrative: Patient is a 83-year-old male with history of CABG, CVA who is on Eliquis who presents to the [facility] for 2 weeks of worsening cough, fatigue, patient states he now feels weak, had a near syncopal episode and is here for evaluation. Patient does live with his who is at bedside. Patient denies any chest pain, patient states he does feel intermittently short of breath. Patient states he does have a productive cough with clear sputum. His also has a cough, however she is not fever or chills or sick as he is. Per the , patient is more weak and she is having trouble taking care of him. [facility] <TANGELA Dixon - Last Filed: 09/24/23 21:53> [facility] Medical History (Updated 09/24/23 @ 23:[address] Khushboo Brown MD) (HFpEF) heart failure with preserved ejection fraction Actinic skin damage Acute coronary thrombosis not resulting in myocardial infarction Anemia Arthritis Atrial fibrillation BPH (benign prostatic hyperplasia) Cardiac arrest with ventricular fibrillation Cardiology follow-up encounter COPD (chronic obstructive pulmonary disease) Coronary artery disease CVA (cerebral vascular accident) (05/2018) DDD (degenerative disc disease), lumbar Esophageal reflux Essential (primary) hypertension Fatigue Fatigue Former smoker Gastric reflux High cholesterol History of atrial fibrillation History of echocardiogram History of stress test HLD (hyperlipidemia) Hypertension Insomnia Lower extremity edema Macular degeneration (senile) of retina, unspecified Mixed hyperlipidemia Paroxysmal A-fib Sleep apnea Syncope Thrombocytopenia TIA (transient ischemic attack) Wears dentures Wears glasses Wears hearing aid Home Medications tamsulosin 0.4 mg capsule 0.4 mg PO DAILY prostate 05/23/13 [History Last Taken 12/18/19] fluticasone furoate 100 mcg-vilanterol 25 mcg/dose inhalation powder (Breo Ellipta) 1 inh inhalation DAILY 12/24/21 [History Last Taken 09/02/22 07:30] pantoprazole 40 mg tablet,delayed release (Protonix) 40 mg PO DAILY #60 tabs 07/14/22 [Rx Last Taken Unknown] alprazolam 1 mg tablet 1 mg PO ONCE #1 TAB 02/01/23 [Rx Last Taken Unknown] isosorbide mononitrate 30 mg tablet,extended release 24 hr 30 mg PO DAILY #90 tabs 02/23/23 [Rx Last Taken Unknown] nitroglycerin 0.4 mg sublingual tablet 0.4 mg sublingual Q5M PRN Chest Pain #25 tabs 02/23/23 [Rx Last Taken Unknown] sotalol 120 mg tablet 120 mg PO BID heart/blood pressure #180 tabs 02/23/23 [Rx Last Taken Unknown] furosemide 40 mg tablet 40 mg PO DAILY #90 tabs 03/23/23 [Rx Last Taken Unknown] atorvastatin 80 mg tablet See Rx Instructions .Route .COMPLEX #90 tabs 05/09/23 [Rx Last Taken Unknown] apixaban 5 mg tablet (Eliquis) 5 mg PO BID #180 tabs 06/07/23 [Rx Last Taken Unknown] ferrous sulfate 325 mg (65 mg iron) tablet 325 mg PO DAILY #30 tabs 06/14/23 [Rx Last Taken Unknown] albuterol sulfate 90 mcg/actuation aerosol inhaler 1 puff inhalation Q4H PRN shortness of breath or wheezing 09/24/23 [History Last Taken Unknown] bupropion HCl 100 mg tablet,12 hr sustained-release 100 mg PO DAILY 09/24/23 [History Last Taken Unknown] Allergy/AdvReac Type Severity Reaction Status Date / Time lisinopril Allergy Severe Cough Verified 09/24/23 17:46 oxycodone [From Percocet] Allergy Severe Hallucinati Verified 09/24/23 17:46 ons pravastatin Allergy Intermediate Myalgia Verified 09/24/23 17:46 Quinolones Allergy Unknown Unknown Verified 09/24/23 17:46 pregabalin [From Lyrica] AdvReac Severe depression Verified 09/24/23 17:46 Family History Mother No problems noted. Father Cancer Sister Cancer Surgical History H/O coronary artery bypass surgery (03/27/04) History of cardiac catheterization History of cholecystectomy History of coronary artery stent placement (08/06/12) History of incisional hernia repair History of left heart catheterization (09/2016) History of tonsillectomy Hx of colonoscopy Hx of hernia repair Social History Smoking Status: Former smoker pack-years: 37 Tobacco: How many years used: 25 how long ago did patient quit smokin quit status: has quit before alcohol intake: current alcohol intake frequency: 0-2 drinks per day Alcohol type: beer and hard liquor substance use type: does not use caffeine: Yes Type: coffee Number of servings: 2 what type of physical activity do you participate in: none seatbelt use: always do you feel safe at home: Yes ROS <TANGELA Dixon - Last Filed: 09/24/23 21:53> ROS ED ROS Narrative Constitutional: Negative for weight loss, weakness. Positive fever and chills Eyes: Negative for vision loss, vision change, double vision ENT: Negative for any sore throat, ear pain. Positive for chest congestion Cardiovascular: Negative for any chest pain, tightness, palpitations Respiratory: Negative for any hemoptysis, dyspnea on exertion, orthopnea. Positive for cough, sputum production, dyspnea Gastrointestinal: Negative for any abdominal pain, nausea, vomiting, diarrhea, constipation, blood in stool, blood in vomit : Negative for any dysuria, retention, blood in urine. Positive for urine frequency, incontinence which is chronic Muscle skeletal: Negative for any neck pain, back pain Neurological: Negative for any headache, syncope. Positive for feeling of dizziness Skin: Negative for any rashes, itching, abrasions, lacerations Psychiatric: Negative for any depression, anxiety, stress, suicidal ideation, homicidal ideation Hematologic: Negative for any excessive bruising, easy bleeding EXAM <TANGELA Dixon - Last Filed: 09/24/23 21:53> Physical Exam Narrative Exam Narrative: Vital signs reviewed. Patient does look like he does not feel well, patient's blood pressure is unremarkable, heart rate was unremarkable, patient was 92 to 93% on room air. HEET: Head normocephalic atraumatic, TMs clear bilaterally. Posterior pharynx is clear, moist mucous membranes. Nares clear bilaterally. Pupils equal round reactive to light. Neck: Supple with no lymphadenopathy or tenderness. No signs of meningismus. Cardiac: Regular rate and rhythm no murmurs gallops or rubs, equal peripheral pulses bilaterally. Respiratory: Diminished lung sounds however expiratory wheezes throughout. No chest tenderness. Abdomen: Soft, nontender, nondistended. No abdominal bruit or pulsatile masses. No hepatosplenomegaly Extremities: No peripheral edema, no signs of gross trauma or deformity. Active full range of motion of all extremities. Neuro: Cranial nerves II through XII intact, no focal neurological deficits. NIH stroke scale 0 Skin: Clean dry and intact with no rash, purpura, petechiae, vesicles or pustules. Backs/flank: No CVA tenderness, no midline spinal tenderness, no deformity. Psych: Normal mood and affect. No SI, HI or acute psychosis. Const Vital Signs: 09/24/23 17:45 09/24/23 20:07 09/24/23 20:08 Temperature 95.4 F L 99.4 F H 99.4 F H Temperature Source Temporal Oral Oral Pulse Rate 70 64 72 Respiratory Rate 20 H 18 18 Respiratory Pattern Blood Pressure 193/85 H 176/95 H 176/95 H Blood Pressure Mean 121 122 122 Pulse Ox 95 93 93 Oxygen Delivery Method Room Air Room Air Room Air 09/24/23 20:13 09/24/23 20:43 09/24/23 21:45 Temperature 99.5 F H Temperature Source Pulse Rate 78 70 Respiratory Rate 26 H 22 H Respiratory Pattern Normal Tachypnea Blood Pressure 138/74 H Blood Pressure Mean 95 Pulse Ox 94 Oxygen Delivery Method Positive well nourished and well developed; Negative for obese, cachectic, contractures or unkempt General Appearance ED: well developed; Negative for unkempt, cachectic or contractures Nutritional Appearance: Negative for cachectic or obese Psych Appearance: Negative for unkempt <Dr. David Sevilla, DO - Last Filed: 09/25/23 00:09> Physical Exam Const Vital Signs: 09/24/23 17:45 09/24/23 20:07 09/24/23 20:08 Temperature 95.4 F L 99.4 F H 99.4 F H Temperature Source Temporal Oral Oral Pulse Rate 70 64 72 Respiratory Rate 20 H 18 18 Respiratory Pattern Blood Pressure 193/85 H 176/95 H 176/95 H Blood Pressure Mean 121 122 122 Pulse Ox 95 93 93 Oxygen Delivery Method Room Air Room Air Room Air 09/24/23 20:13 09/24/23 20:43 09/24/23 21:45 Temperature 99.5 F H Temperature Source Pulse Rate 78 70 Respiratory Rate 26 H 22 H Respiratory Pattern Normal Tachypnea Blood Pressure 138/74 H Blood Pressure Mean 95 Pulse Ox 94 Oxygen Delivery Method MDM <Arsh DukeTANGELA leach - Last Filed: 09/24/23 21:53> [facility] Lab Data Labs: Laboratory Results - last 24 hr 09/24/23 09/24/23 20:25 20:50 WBC 6.0 RBC 4.59 L Hgb 15.4 Hct 44.9 MCV 97.8 H MCH 33.6 H MCHC 34.3 RDW Std Deviation 47.4 H RDW Coeff of Randall 13.2 Plt Count 124 L MPV 10.7 Immature Gran % (Auto) 0.300 Neut % (Auto) 72.3 H Lymph % (Auto) 13.6 L [place] % (Auto) 13.3 H Eos % (Auto) 0.2 Baso % (Auto) 0.3 Absolute Neuts (auto) 4.3 Absolute Lymphs (auto) 0.81 L Nucleated RBC % 0 ESR 6 D-Dimer Quant (PE/DVT) 0.32 Sodium 134 L Potassium 4.1 Chloride 102 Carbon Dioxide 26.0 Anion Gap 6 BUN 14 Creatinine 1.09 Estim Creat Clear Calc 50.46 Est GFR (MDRD) Af Amer 83 Est GFR (MDRD) Non-Af 69 BUN/Creatinine Ratio 12.8 Glucose 100 Lactic Acid 1.1 Calcium 8.7 Magnesium 2.2 Ferritin 75 Total Bilirubin 1.40 H AST 21 ALT 26 Alkaline Phosphatase 121 H Lactate Dehydrogenase 207 Total Creatine Kinase 141 Troponin I High Sens 11 C-React Prot Ext Range 11.70 H B-Natriuretic Peptide 109.0 H Total Protein 6.8 Albumin 3.6 Globulin 3.2 Albumin/Globulin Ratio 1.1 Lipase 47 Urine Color Yellow Urine Clarity Sl. Cloudy Urine pH 6.0 Ur Specific [place] 1.015 Urine Protein 30 H Urine Glucose (UA) Normal Urine Ketones 15 H Urine Occult Blood 50 H Urine Nitrite Positive H Urine Bilirubin Negative Urine Urobilinogen 8 H Ur Leukocyte Esterase 100 H Urine RBC 10-25 SEEN Urine WBC 10-25 SEEN Ur Squamous Epith Cells 0 SEEN Urine Bacteria 2+ Urine Mucus 0 SEEN Radiography Diagnostic Testing: Clinical Impression(s) from Imaging Studies Brain CT 09/24/23 20:27 IMPRESSION: No acute intracranial abnormality. Electronically Signed: Joe Chauhan DO at 22:27 EST , Chest X-Ray 09/24/23 21:11 IMPRESSION: Poor inspiration with some bibasilar atelectasis. Electronically Signed: Ronnie Gonzalez MD at 21:55 EST , Treatment and Re-Evaluation :: Differential diagnosis includes however is not limited to: Viral symptoms such as COVID-19, RSV, influenza, community-acquired pneumonia, CVA, to cranial hemorrhage, electrolyte abnormality, UTI Patient appears to be in no obvious respiratory distress, patient alert and orient x 4. Patient does appear that he does not feel well, however he does look nontoxic. Patient on my evaluation is not encephalopathic at this time. Patient does look to feel weak. Basic laboratory values will be drawn including EKG, troponin. Patient received a chest x-ray, CT scan of the brain, as well as urinalysis. COVID-19/influenza, RSV swab will be completed, patient received breathing treatments. All radiologic examinations were read, reviewed by the emergency department attending. From these reads, a plan of care will be put in place. Patient will be reevaluated after treatments. Patient at rest is 91 and 92%. Patient's CBC was unremarkable, no leukocytosis, no anemia. Lactic acid was negative. Chemistries showed a total bilirubin of 1.4, patient has been elevated before. Patient's creatinine is 1.09. Lipase was negative. 2 sets of blood cultures was completed. Patient was positive for COVID-19. Chest x-ray was unremarkable, CT scan of the brain was unremarkable. Patient's urinalysis was positive for infection with 2+ bacteria 10-25 white blood cells, 10-25 red blood cells, 100 leukocytes, positive nitrites. At this time, patient has multiple reasons for his weakness and fatigue and difficulty ambulating and taking care of himself at home. Patient will need to be admitted to the hospital, the patient is unable to be cared for by his . Patient will be admitted for COVID-19, UTI, metabolic encephalopathy, dizziness. Patient and are agreeable to plan. I will speak with hospitalist. Patient stable for admission. <Dr. David Sevilla, DO - Last Filed: 09/25/23 00:09> [facility] Narrative Medical decision making narrative: I have personally performed a face to face assessment of the patient and have reviewed the IBIS Note. I performed a substantive portion of the visit including all aspects of the following. My chin findings include: History is [patient presents with generalized weakness and not feeling well. states has not felt well for about 2 weeks. Patient complains of intermittent lightheadedness with standing and walking. Today he was too weak for the to get into the car so he had to have a neighbor helped him and they had a hard time getting him out of the car. Has had a cough for several weeks. Bringing up some phlegm. He has had low-grade fevers tonight. He denies dysuria or urgency or frequency. He denies chest pain. He denies shortness of breath.] Exam is [HEENT-PERRLA, EOMI. Cranial nerves II through XII grossly intact. TMs clear. Mucous membranes moist. No adenopathy. Cardiovascular-regular rate and rhythm without murmur or ectopy Lungs-clear to auscultation, chest wall stable without crepitus or subcu emphysema Abdomen-normoactive bowel sounds, soft, nontender, no rebound or rigidity, no peritoneal signs. Extremities-intact ?4, normal range of motion, normal pulses, atraumatic] Medical Decison Making [patient presents with generalized weakness and cough. Workup significant for normal white count of 6.0 with hemoglobin 15 and platelet count of 124. Chemistries unremarkable. Lactate normal at 1.1. Urinalysis positive for UTI and a urine culture was sent. Patient also positive for COVID-19. Chest x-ray was unremarkable. CT scan of the brain without contrast was unremarkable.] Other additions or changes: [None] Lab Data Attestation: I reviewed the patient's lab results. Labs: Laboratory Results - last 24 hr 09/24/23 09/24/23 20:25 20:50 WBC 6.0 RBC 4.59 L Hgb 15.4 Hct 44.9 MCV 97.8 H MCH 33.6 H MCHC 34.3 RDW Std Deviation 47.4 H RDW Coeff of Randall 13.2 Plt Count 124 L MPV 10.7 Immature Gran % (Auto) 0.300 Neut % (Auto) 72.3 H Lymph % (Auto) 13.6 L [place] % (Auto) 13.3 H Eos % (Auto) 0.2 Baso % (Auto) 0.3 Absolute Neuts (auto) 4.3 Absolute Lymphs (auto) 0.81 L Nucleated RBC % 0 ESR 6 D-Dimer Quant (PE/DVT) 0.32 Sodium 134 L Potassium 4.1 Chloride 102 Carbon Dioxide 26.0 Anion Gap 6 BUN 14 Creatinine 1.09 Estim Creat Clear Calc 50.46 Est GFR (MDRD) Af Amer 83 Est GFR (MDRD) Non-Af 69 BUN/Creatinine Ratio 12.8 Glucose 100 Lactic Acid 1.1 Calcium 8.7 Magnesium 2.2 Ferritin 75 Total Bilirubin 1.40 H AST 21 ALT 26 Alkaline Phosphatase 121 H Lactate Dehydrogenase 207 Total Creatine Kinase 141 Troponin I High Sens 11 C-React Prot Ext Range 11.70 H B-Natriuretic Peptide 109.0 H Total Protein 6.8 Albumin 3.6 Globulin 3.2 Albumin/Globulin Ratio 1.1 Lipase 47 Urine Color Yellow Urine Clarity Sl. Cloudy Urine pH 6.0 Ur Specific [place] 1.015 Urine Protein 30 H Urine Glucose (UA) Normal Urine Ketones 15 H Urine Occult Blood 50 H Urine Nitrite Positive H Urine Bilirubin Negative Urine Urobilinogen 8 H Ur Leukocyte Esterase 100 H Urine RBC 10-25 SEEN Urine WBC 10-25 SEEN Ur Squamous Epith Cells 0 SEEN Urine Bacteria 2+ Urine Mucus 0 SEEN Radiography Diagnostic Testing: Clinical Impression(s) from Imaging Studies Brain CT 09/24/23 20:27 IMPRESSION: No acute intracranial abnormality. Electronically Signed: Joe Chauhan DO at 22:27 EST , Chest X-Ray 09/24/23 21:11 IMPRESSION: Poor inspiration with some bibasilar atelectasis. Electronically Signed: Ronnie Gonzalez MD at 21:55 EST , 1 view chest x-ray obtained interpreted by myself as no evidence of infiltrate or acute disease process. Radiology felt there was some bibasilar atelectasis. EKG Initial EKG: Attestation: I personally reviewed and interpreted this EKG as follows: Comments: Sinus rhythm with PACs and nonspecific ST changes Discharge Plan Dx/Rx/DC Orders Clinical Impression: COVID-19, Acute metabolic encephalopathy, Acute UTI Disposition Disposition: Acute Care Hospital [facility]
[2023-09-24] MEDS: 0.9% Normal Saline (1000mL) 1,000 ML 1000 ML IV (20:43)
[2023-09-24] MEDS: Ondansetron 4 MG/2 ML Vial IV (20:43)
[2023-09-24] MEDS: MethylPREDNISolone 125 MG/2 ML Vial 60 MG IV (20:43)
[2023-09-24] MEDS: Ipratropium/Albuterol Sulfate 3 ML AMPUL.NEB INHALATION (20:43)
[2023-09-24] MEDS: Albuterol 2.5 MG/3 ML VIAL.NEB. INHALATION (20:43)
[2023-09-24 20:48] LABS: Mucous, Urine 0 SEEN /hpf (<or=2+); Squamous Epithelial Cells - UA 0 SEEN /hpf (0-5)
[2023-09-24 20:51] LABS: Absolute Lymphocyte Count 0.81 X10^3/uL (0.83-4.51); Absolute Neutrophil Count 4.3 X10^3/uL (2.0-7.7); Basophil# 0.02 X10^3/uL; Basophil% 0.3 % (0-1); Eosinophil# 0.01 X10^3/uL; Eosinophils% 0.2 % (0-5); Hematocrit 44.9 % (40-54); Hemoglobin 15.4 g/dL (13.0-16.5); Lymphocyte # 0.81 X10^3/ul (0.83-4.51); Lymphocyte % 13.6 % (19-41); Mean Corp Hgb Conc 34.3 g/dL (32-36); Mean Corpuscular Hgb 33.6 pg (27.0-32.0); Mean Corpuscular Volume 97.8 fL (80-94); Mean Platelet Vol. 10.7 fl (6.2-12.0); Monocyte# 0.79 X10^3/uL; Monocyte% 13.3 % (0-10); NRBC Flagged by Analyzer 0 % (0-5); Neutrophil # 4.31 X10^3/uL (2.7-7.7); Neutrophil % 72.3 % (47-70); Platelet Count 124 K/mm3 (150-450); RBC Distribution Width CV 13.2 % (11.6-14.6); RBC Distribution Width SD 47.4 fl (35.1-43.9); Red Blood Count 4.59 M/mm3 (4.6-6.2)
[2023-09-24 20:58] LABS: Color, Urine Yellow (Yellow); Glucose, Dipstick Normal (Normal); Ketone-Dipstick 15 mg/dl (Negative); Leukocyte Esterase-Dipstick 100 /ul (Negative); Nitrite-Dipstick Positive (Negative); Occult Blood-Urine 50 /ul (Negative); Protein-Dipstick 30 mg/dl (Negative); Specific Gravity, Urine 1.015 (1.002-1.030); Urine Bilirubin Dipstick Negative (Negative); Urine Clarity Sl. Cloudy (Clear); Urine Urobilinogen 8 mg/dl (Normal)
--- NOTE | 2023-09-24 21:00 | CPS ---
x1 Albuterol given to pt. in ER as well
[2023-09-24 21:03] LABS: Red Blood Cells-Urine 10-25 SEEN /hpf (0-5); White Blood Cells 10-25 SEEN /hpf (0-5)
[2023-09-24 21:04] LABS: Bacteria 2+ /hpf (None Seen)
--- NOTE | 2023-09-24 21:11 | RAD_ITS ---
STUDY: X-RAY CHEST REASON FOR EXAM: Male, 83 years old. cough TECHNIQUE: Single AP portable view of the chest. COMPARISON: 07/12/2022 FINDINGS: Status post median sternotomy. Poor inspiration with some bibasilar atelectasis. There is no demonstrated pleural abnormality. Normal size heart. Normal mediastinum and [place]. Normal visualized pulmonary arteries. Normal visualized aortic arch and descending thoracic aorta. Normal visualized thoracic spine. Normal visualized ribs, clavicles, and shoulders. There is no demonstrated abnormality of the visualized soft tissue structures of the upper abdomen. RAD/Chest 1 View (Portable) IMPRESSION: Poor inspiration with some bibasilar atelectasis. Electronically Signed: Ronnie Gonzalez MD at 21:55 EST ,
[2023-09-24 21:12] LABS: ALB/GLOB Ratio 1.1 RATIO (0.9-2.4); AST(SGOT) 21 U/L (15-37); Alanine Aminotransfer ALT/SGPT 26 U/L (16-61); Albumin, Serum 3.6 g/dL (3.2-5.0); Alkaline Phosphatase 121 U/L (45-117); Anion Gap 6 (5-15); BUN 14 mg/dL (7-18); BUN/Creat Ratio 12.8 RATIO (10-20); Calcium,Total 8.7 mg/dL (8.5-10.1); Chloride 102 mmol/L (98-107); Creatinine, Serum 1.09 mg/dL (0.70-1.30); EST Glomerular Filtration Rate 69 mL/min (>60); Est Glom Filt Rate - Afr Amer 83 mL/min (>60); Estimated Creatinine Clearance 50.46 ml/min; Globulin 3.2 g/dL (2.2-4.2); Glucose 100 mg/dL (74-106); Lipase 47 U/L (13-75); Potassium 4.1 mmol/L (3.5-5.1); Protein, Total 6.8 g/dL (6.4-8.2); Sodium Level 134 mmol/L (136-145); Troponin-I HS 11 pg/mL (3.0-78.0)
--- OUTSIDE RECORDS SUMMARY | 2023-09-24 21:26 | XMS RPT_ITS | CCD ---
Author Name Unknown Address [id number] [place] [address] Organization [facility] Care Team Providers Care Software Support Analyst Name Role Phone Aiden MJEIA, Jose Anaya Primary Care Provider [phone] Dylon RN, Tristian Laureano Unavailable Unavailbreezy Wolfe MD, Jose Anaya Primary Care Provider [phone] Tristian RN, Dylon Laureano Unavailable Unavailbreezy Lubin RN, Dylon Laureano Unavailable UnavailSUN Ledezma Referring Unavailable JOSE WOLFE Primary Care Unavailable JOSE WOLFE Primary Care Unavailable SUN DORSEY Attending Unavailable JOSE WOLFE Primary Care Unavailable SUN DORSEY Referring Unavailable JOSE WOLFE Primary Care Unavailable SUN DORSEY Attending Unavailable JOSE WOLFE Primary Care Unavailable AIDEN, JOSE Anaya Primary Care Unavailable BARRERA SYKES Referring Unavailable AIDEN, JOSE Anaya Primary Care Unavailable SOHA AKHTAR Referring Unavailable AIDEN, JOSE Anaya Primary Care Unavailable SUZAN VILLALPANDO Attending Unavailable SOHA AKHTAR Referring Unavailable JOSE WOLFE Primary Care Unavailable SOHA AKHTAR Referring Unavailable YAMILEX HSIEH Referring Unavailable YAMILEX HSIEH Attending Unavailable JOSE WOLFE Primary Care Unavailable SUN DORSEY Referring Unavailable AIDEN, JOSE Anaya Primary Care Unavailable AIDEN, JOSE Anaya Attending Unavailable AIDEN, JOSE Anaya Primary Care Unavailable WOLFE, JOSE Anaya Attending Unavailable AIDEN, JOSE Anaya Primary Care Unavailable AIDEN, JOSE Anaya Primary Care Unavailable SOHA AKHTAR Referring Unavailable AIDEN, JOSE Anaya Referring Unavailable AIDEN, JOSE Anaya Primary Care Unavailable SUN DORSEY Attending Unavailable JOSE WOLFE Primary Care Unavailable JOSE WOLFE Referring Unavailable JOSE WOLFE Primary Care Unavailable JOSE WOLFE Attending Unavailable JOSE WOLFE Primary Care Unavailable JOSE WOLFE H Referring Unavailable JOSE WOLFE Primary Care Unavailable SUN DORESY Referring Unavailable JOSE WOLFE Primary Care Unavailable JOSE WOLFE Primary Care Unavailable SUN DORSEY Referring Unavailable SUN DORSEY Attending Unavailable JOSE WOLFE H Primary Care Unavailable Allergies Allergy Classification Reported Allergen(s) Allergy Type Date of Onset Reaction(s) Facility (20 sources) Acetaminophen / oxyCODONE; Translations: [OXYCODONE-ACETAM INOPHEN] Drug Allergy 0 Mental Status Change [facility] (9 sources) Angiotensin-conve rting enzyme inhibitor agent; Translations: [KEITH INHIBITORS] Drug Intolerance 3 Cough [facility] Work Phone: (20 sources) pregabalin; Translations: [PREGABALIN] Drug Allergy 5 Mental Status Change [facility] (20 sources) Angiotensin-conve rting enzyme inhibitor agent Drug Intolerance 3 Cough [facility] Work Phone: Medications Current Medications Medication Drug Class(es) Dates Sig (Normalized) Sig (Original) benzonatate 100 mg oral capsule (4 sources) Non-narcotic Antitussive Start: 04-11-2023 End: 04-26-2023 take 1 capsule by mouth every eight hours as needed for cough and cough benzonatate (TESSALON PERLE) 100 mg capsule Indications: Acute cough Take 1 capsule by mouth every 8 hours as needed for cough for up to 15 days. 30 capsule 0 04/11/2023 04/26/2023 Active Completed/Discontinued Medications Medication Drug Class(es) Dates Sig (Normalized) Sig (Original) [id number] 200 actuat albuterol 0.09 mg/actuat metered dose inhaler (20 sources) beta2-Adrenergic Agonist Start: 09-17-2021 End: 01-10-2023 take 2 puff(s) by inhalation every four hours as needed for wheezing albuterol HFA (PROVENTIL HFA) 90 mcg/actuation inhaler Indications: COPD with chronic bronchitis (HCC) Inhale 2 Puffs as instructed every 4 hours as needed for wheezing/shortnes s of breath. 1 Each 01/10/2023 Active Problems Active Problems Problem Classification Problem Date Documented Date Episodic/Chronic Anxiety disorders (1 source) Claustrophobia; Translations: [Claustrophobia] 06-06-2023 Chronic Cardiac dysrhythmias (20 sources) Atrial fibrillation; Translations: [Unspecified atrial fibrillation] Onset: 11-24-2009 07-13-2021 Chronic Chronic obstructive pulmonary disease and bronchiectasis (20 sources) Emphysematous bronchitis; Translations: [Chronic obstructive pulmonary disease, unspecified] Onset: 08-15-2006 10-17-2015 Chronic Coagulation and hemorrhagic disorders (20 sources) Platelet count below reference range; Translations: [Thrombocytopenia, unspecified] Onset: 09-26-2014 09-26-2014 Chronic Coronary atherosclerosis and other heart disease (20 sources) Coronary atherosclerosis; Translations: [Atherosclerotic heart disease of [place] coronary artery without angina pectoris] Onset: 03-25-2005 07-13-2021 Chronic Deficiency and other anemia (3 sources) Anemia; Translations: [Anemia, unspecified] Episodic Disorders of lipid metabolism (20 sources) Mixed hyperlipidemia; Translations: [Mixed hyperlipidemia] Onset: 08-15-2006 05-26-2010 Chronic Esophageal disorders (20 sources) Gastroesophageal reflux disease; Translations: [Gastro-esophageal reflux disease without esophagitis] Onset: 08-15-2006 10-08-2010 Chronic Essential hypertension (20 sources) Essential hypertension; Translations: [Essential (primary) hypertension] Onset: 12-26-2019 12-26-2019 Chronic Hyperplasia of prostate (20 sources) Benign prostatic hypertrophy with outflow obstruction; Translations: [Benign prostatic hyperplasia with lower urinary tract symptoms] Onset: 08-15-2006 10-17-2015 Chronic Mood disorders (3 sources) Dysthymia; Translations: [Dysthymic disorder] Onset: 06-28-2023 06-28-2023 Chronic Nutritional deficiencies (2 sources) Vitamin D deficiency; Translations: [Vitamin D deficiency, unspecified] Onset: 05-25-2023 05-25-2023 Chronic Occlusion or stenosis of precerebral arteries (20 sources) Bilateral carotid artery occlusion; Translations: [Occlusion and stenosis of bilateral carotid arteries] Onset: 01-22-2022 10-15-2022 Chronic Other connective tissue disease (3 sources) Pain in right foot; Translations: [Pain in right foot] Episodic Other connective tissue disease (3 sources) Plantar fascial fibromatosis; Translations: [Plantar fascial fibromatosis] Episodic Other lower respiratory disease (1 source) Dyspnea; Translations: [Shortness of breath] Episodic Other lower respiratory disease (1 source) Cough; Translations: [Acute cough] Episodic Other lower respiratory disease (1 source) Chronic cough; Translations: [Chronic cough] 04-15-2023 Episodic Other nervous system disorders (2 sources) Difficulty walking; Translations: [Difficulty in walking, not elsewhere classified] Chronic Other nutritional; endocrine; and metabolic disorders (12 sources) Obesity; Translations: [Obesity, unspecified] Onset: 08-15-2006 05-26-2010 Chronic Other nutritional; endocrine; and metabolic disorders (20 sources) Obese class I; Translations: [Obesity, unspecified] Onset: 11-04-2020 11-04-2020 Chronic Other upper respiratory disease (20 sources) Rhinitis; Translations: [Chronic rhinitis] Onset: 09-25-2012 09-25-2012 Chronic Other upper respiratory disease (2 sources) Chronic rhinitis; Translations: [Chronic rhinitis] Chronic Residual codes; unclassified (1 source) Disorders of excessive somnolence; Translations: [Hypersomnia, unspecified] 06-28-2023 Chronic Residual codes; unclassified (1 source) Hypersomnia, unspecified; 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] Onset: 06-28-2023 Chronic Residual codes; unclassified (1 source) Alcohol-induced flushing; Translations: [Flushing] Episodic Residual codes; unclassified (2 sources) Acute confusion; Translations: [Disorientation, unspecified] 05-16-2023 Episodic Residual codes; unclassified (3 sources) Altered mental status; Translations: [Altered mental status, unspecified] 05-25-2023 Episodic Residual codes; unclassified (2 sources) Altered mental status, unspecified; Translations: [Altered mental status, unspecified altered mental status type] Onset: 06-15-2023 Episodic Retinal detachments; defects; vascular occlusion; and retinopathy (20 sources) Age related macular degeneration; Translations: [Unspecified macular degeneration] Onset: 08-15-2006 05-26-2010 Chronic Screening and history of mental health and substance abuse codes (1 source) Ex-smoker; Translations: [Personal history of nicotine dependence] 04-15-2023 Episodic Spondylosis; intervertebral disc disorders; other back problems (20 sources) Degeneration of lumbar intervertebral disc; Translations: [Other intervertebral disc degeneration, lumbar region] Onset: 07-18-2013 07-13-2021 Chronic Transient cerebral ischemia (3 sources) Transient cerebral ischemia; Translations: [Transient cerebral ischemic attack, unspecified] Onset: 06-15-2023 05-25-2023 Chronic Unclassified (1 source) Acute cough; Translations: [Acute cough] Onset: 04-11-2023 Past or Other Problems Problem Classification Problem Date Documented Da te Episodic/Chronic Allergic reactions (20 sources) Solar degeneration; Translations: [Other skin changes due to chronic exposure to nonionizing radiation] Onset: 4 02-13-2014 Episodic Deficiency and other anemia (1 source) Anemia, unspecified; Translations: [Anemia, unspecified type] Onset: 3 Episodic Diabetes mellitus without complication (20 sources) Impaired fasting glycemia; Translations: [Impaired fasting glucose] Onset: 6 08-08-2020 Episodic Gastrointestinal hemorrhage (20 sources) Gastrointestinal hemorrhage; Translations: [Gastrointestinal hemorrhage, unspecified] Onset: 3 Episodic Immunizations and screening for infectious disease (5 sources) Patient encounter status; Translations: [Encounter for immunization] Onset: 3 Episodic Malaise and fatigue (20 sources) Asthenia; Translations: [Weakness] Onset: 3 Episodic Other aftercare (20 sources) Drug therapy finding; Translations: [alf (current) use of anticoagulants] Onset: 6 10-15-2022 Episodic Other and unspecified benign neoplasm (20 sources) Adenomatous polyp of colon ; Translations: [Benign neoplasm of transverse colon] Onset: 3 Episodic Other diseases of kidney and ureters (1 source) Other obstructive and reflux uropathy; Translations: [BPH with obstruction/lower urinary tract symptoms] Onset: 6 Episodic Other disorders of stomach and duodenum (20 sources) Vascular ectasia of gastric antrum; Translations: [Angiodysplasia of stomach and duodenum without bleeding] Onset: 3 Episodic Other lower respiratory disease (1 source) Hemoptysis; Translations: [Hemoptysis] Onset: 3 Episodic Pleurisy; pneumothorax; pulmonary collapse (3 sources) Pleural effusion; Translations: [Pleural effusion, not elsewhere classified] Onset: 3 Episodic Residual codes; unclassified (20 sources) Bilateral lower limb edema; Translations: [Localized edema] Onset: 5 10-03-2014 Episodic Residual codes; unclassified (20 sources) Insomnia; Translations: [Insomnia, unspecified] Onset: 5 10-03-2014 Episodic Residual codes; unclassified (1 source) Disorientation, unspecified; Translations: [Acute confusion] Onset: 3 Episodic Spondylosis; intervertebral disc disorders; other back problems (20 sources) Cervical radiculopathy; Translations: [Radiculopathy, cervical region] Onset: 1 10-15-2022 Episodic Syncope (20 sources) Syncope; Translations: [Syncope and collapse] Onset: 3 10-15-2022 Episodic Urinary tract infections (3 sources) Acute cystitis; Translations: [Acute cystitis without hematuria] Onset: 3 Episodic Results Test Name Value Interpretation Reference Range Facil ity Vital Signs Date Time Vital Sign Value Performing Clinician Faci lity 06-28-2023 11:36-0500 Body temperature 97.11 [degF] Jose Wolfe MD Work Phone: [facility] 06-28-2023 11:36-0500 Body weight 84.82 kg Jose Wolfe MD Work Phone: [facility] 06-28-2023 11:36-0500 Diastolic blood pressure 66 mm[Hg] Jose Wolfe MD Work Phone: [facility] 06-28-2023 11:36-0500 Heart rate 64 /min Jose Wolfe MD Work Phone: [facility] 06-28-2023 11:36-0500 Respiratory rate 18 /min Jose Wolfe MD Work Phone: [facility] 06-28-2023 11:36-0500 SaO2% (BldA) [Mass fraction] 97 % Jose Wolfe MD Work Phone: [facility] 06-28-2023 11:36-0500 Systolic blood pressure 126 mm[Hg] Jose Wolfe MD Work Phone: [facility] 05-25-2023 10:54-0500 Body weight 84.82 kg Sun Older WATER OPERATOR.SAND ANALYST Work Phone: [facility] 05-25-2023 10:54-0500 Diastolic blood pressure 70 mm[Hg] Sun Older WATER OPERATOR.SAND ANALYST Work Phone: [facility] 05-25-2023 10:54-0500 Heart rate 60 /min Sun Older WATER OPERATOR.SAND ANALYST Work Phone: [facility] 05-25-2023 10:54-0500 Systolic blood pressure 124 mm[Hg] Sun Older WATER OPERATOR.SAND ANALYST Work Phone: [facility] 05-16-2023 12:12-0400 Body temperature 97.59 [degF] Sun Older WATER OPERATOR.SAND ANALYST Work Phone: [facility] 05-16-2023 12:12-0400 Body weight 86.64 kg Sun Older WATER OPERATOR.SAND ANALYST Work Phone: [facility] 05-16-2023 12:12-0400 Diastolic blood pressure 66 mm[Hg] Sun Older WATER OPERATOR.SAND ANALYST Work Phone: [facility] 05-16-2023 12:12-0400 Heart rate 68 /min Sun Older WATER OPERATOR.SAND ANALYST Work Phone: [facility] 05-16-2023 12:12-0400 Respiratory rate 16 /min Sun Older WATER OPERATOR.SAND ANALYST Work Phone: [facility] 05-16-2023 12:12-0400 Systolic blood pressure 124 mm[Hg] Sun Older WATER OPERATOR.SAND ANALYST Work Phone: [facility] 04-15-2023 10:17-0400 Diastolic blood pressure 82 mm[Hg] Suzan Villalpando MD Work Phone: [facility] 04-15-2023 10:17-0400 Systolic blood pressure 122 mm[Hg] Suzan Villalpando MD Work Phone: [facility] 04-15-2023 09:50-0400 Body height 163.8 cm Pulm Wstr Work Phone: [facility] 04-15-2023 09:50-0400 Body weight 85.28 kg Pulm Wstr Work Phone: [facility] 04-15-2023 09:50-0400 Heart rate 61 /min Pulm Wstr Work Phone: [facility] 04-15-2023 09:50-0400 Respiratory rate 12 /min Pulm Wstr Work Phone: [facility] 04-15-2023 09:50-0400 SaO2% (BldA) [Mass fraction] 99 % Pulm Wstr Work Phone: [facility] 01-10-2023 15:00-0400 Body weight 86.64 kg Jose Wolfe MD Work Phone: [facility] 01-10-2023 15:00-0400 Diastolic blood pressure 66 mm[Hg] Jose Wolfe MD Work Phone: [facility] 01-10-2023 15:00-0400 Heart rate 64 /min Jose Wolfe MD Work Phone: [facility] 01-10-2023 15:00-0400 Respiratory rate 16 /min Jose Wolfe MD Work Phone: [facility] 01-10-2023 15:00-0400 Systolic blood pressure 124 mm[Hg] Jose Wolfe MD Work Phone: [facility] 11-22-2022 11:15-0400 Body height 163.8 cm Sun Gan APRN.CNP Work Phone: [facility] 11-22-2022 11:15-0400 Body temperature 96.4 [degF] Sun Older WATER OPERATOR.SAND ANALYST Work Phone: [facility] 11-22-2022 11:15-0400 Body weight 87.41 kg Sun Older WATER OPERATOR.SAND ANALYST Work Phone: [facility] 11-22-2022 11:15-0400 Diastolic blood pressure 64 mm[Hg] Sun Older WATER OPERATOR.SAND ANALYST Work Phone: [facility] 11-22-2022 11:15-0400 Heart rate 65 /min Sun Older WATER OPERATOR.SAND ANALYST Work Phone: [facility] 11-22-2022 11:15-0400 Respiratory rate 16 /min Sun Older WATER OPERATOR.SAND ANALYST Work Phone: [facility] 11-22-2022 11:15-0400 SaO2% (BldA) [Mass fraction] 99 % Sun Older WATER OPERATOR.SAND ANALYST Work Phone: [facility] 11-22-2022 11:15-0400 Systolic blood pressure 122 mm[Hg] Sun Older WATER OPERATOR.SAND ANALYST Work Phone: [facility] 10-15-2022 10:35-0400 Body weight 88.36 kg Yamilex Jessee PA-C Work Phone: [facility] 10-15-2022 10:35-0400 Diastolic blood pressure 64 mm[Hg] Yamilex Jessee PA-C Work Phone: [facility] 10-15-2022 10:35-0400 Heart rate 58 /min Yamilex Jessee PA-C Work Phone: [facility] 10-15-2022 10:35-0400 SaO2% (BldA) [Mass fraction] 98 % Yamilex Jessee PA-C Work Phone: [facility] 10-15-2022 10:35-0400 Systolic blood pressure 106 mm[Hg] Yamilex Jessee PA-C Work Phone: [facility] 01-11-2023 11:46-0500 Body temperature 96.91 [degF] Jose Wolfe MD Work Phone: [facility] 07-28-2022 11:46-0500 Body weight 86.18 kg Jose Wolfe MD Work Phone: [facility] 07-28-2022 11:46-0500 Diastolic blood pressure 66 mm[Hg] Jose Wolfe MD Work Phone: [facility] 07-28-2022 11:46-0500 Heart rate 68 /min Jose Wolfe MD Work Phone: [facility] 07-28-2022 11:46-0500 Respiratory rate 16 /min Jose Wolfe MD Work Phone: [facility] 07-28-2022 11:46-0500 Systolic blood pressure 114 mm[Hg] Jose Wolfe MD Work Phone: [facility] 05-24-2022 10:39-0500 Body temperature 97.39 [degF] Rin Bogner PA-C Work Phone: [facility] 05-24-2022 10:39-0500 Body weight 87.54 kg Rin Bogner PA-C Work Phone: [facility] 05-24-2022 10:39-0500 Diastolic blood pressure 64 mm[Hg] Rin Bogner PA-C Work Phone: [facility] 05-24-2022 10:39-0500 Heart rate 70 /min Rin Bogner PA-C Work Phone: [facility] 05-24-2022 10:39-0500 Respiratory rate 16 /min Rin Bogner PA-C Work Phone: [facility] 05-24-2022 10:39-0500 SaO2% (BldA) [Mass fraction] 97 % Rin Bogner PA-C Work Phone: [facility] 05-24-2022 10:39-0500 Systolic blood pressure 112 mm[Hg] Rin Bogner PA-C Work Phone: [facility] Encounters Encounter Date Encounter Type Care Provider Facility Start: 09-21-2023 ambulatory Dylon Lubin RN Am bulatory Care Management Procedures Date Procedure Procedure Detail Performing Clinician Start: 05-16-2023 PFIZER-BIONTECH COVI D-19 VACCINE ( SEASON) AGE 12+ YR Sun Older WATER OPERATOR.SAND ANALYST Work Phone: Start: 05-16-2023 INFLUENZA VACCINE, P RSV FREE, AGE 65+ YR, HIGH DOSE, QUADRIVALENT (FLUZONE HIGH-DOSE) Sun Older WATER OPERATOR.SAND ANALYST Work Phone: Start: 05-10-2023 Ct head/brain w/o co ntrast material Sun Older WATER OPERATOR.SAND ANALYST Work Phone: Start: 04-15-2023 Co diffusing capacity A susannah Akhtar WATER OPERATOR.SAND ANALYST Work Phone: Start: 01-10-2023 Urnls dip stick/tabl et rgnt auto w/o microscopy Jose Wolfe MD Work Phone: Start: 11-22-2022 PFIZER-BIONTECH COVI D-19 BIVALENT VACCINE, AGE 12+ YR Sun Older WATER OPERATOR.[facility] Work Phone: Start: 10-15-2022 Radiologic exam ches t 2 views Soha Akhtar WATER OPERATOR.SAND ANALYST Work Phone: Plan of Treatment Date Care Activity Detail Author Start: 06-28-2026 Diabetes Screening Diabetes Screenin [facility] Start: 05-09-2026 Diabetes Screening Diabetes Screenin g [facility] Start: 11-15-2025 DIABETES SCREEN DIABETES SCREEN [facility] Start: 11-15-2025 Diabetes Screening Diabetes Screenin g [facility] Start: 08-05-2024 DIABETES SCREEN DIABETES SCREEN [facility] Start: 05-25-2024 RSV Vaccine (1 - 1-d ose 60+ series) RSV Vaccine (1 - 1-dose 60+ series) [facility] Immunizations Immunization Date Immunization Notes Care Provider Fa cility 05-16-2023 COVID-19 vaccine, ag e 12+ yr, season (PFIZER-BIONTECH) Sun Older WATER OPERATOR.[facility] Work Phone: [facility] Work Phone: 05-16-2023 influenza (HD-IIV4) vaccine, age 65+ yr, high dose, quadrivalent, PF (FLUZONE HIGH-DOSE) Sun Older WATER OPERATOR.[facility] Work Phone: [facility] Work Phone: 11-22-2022 COVID-19 vaccine, ag e 12+ yr, bivalent (PFIZER-BIONTECH) Sun Older WATER OPERATOR.[facility] Work Phone: [facility] 05-17-2022 influenza virus vacc ine, unspecified formulation Dylon Lubin RN [facility] 05-26-2021 influenza (aIIV4) vaccine, age 65+ yr, quadrivalent, PF (FLUAD QUADRIVALENT) Tristian Monique RN [facility] Work Phone: 10-13-2020 COVID-19 vaccine, fu ll dose (MODERNA) Tristian Monique [facility] Work Phone: 09-15-2020 COVID-19 vaccine, fu ll dose (MODERNA) Tristian Monique [facility] Work Phone: 04-09-2020 influenza, high dose seasonal, preservative-free Tristian Monique RN [facility] Work Phone: 04-09-2020 influenza, high-dose , quadrivalent vaccine (FLUZONE HIGH DOSE QUADRIVALENT) Tristian Monique RN [facility] Work Phone: 05-04-2019 influenza, high dose seasonal, preservative-free Tristian Monique RN [facility] Work Phone: 04-04-2018 influenza, high dose seasonal, preservative-free Tristian Monique RN [facility] Work Phone: 04-02-2017 influenza, high dose seasonal, preservative-free Tristian Monique RN [facility] 03-31-2016 influenza, high dose seasonal, preservative-free Tristian Monique RN [facility] Work Phone: 10-17-2015 pneumococcal polysaccharide vaccine, 23 valent Tristian Monique RN [facility] Work Phone: 05-21-2015 influenza, high dose seasonal, preservative-free Tristian Monique RN [facility] 10-03-2014 pneumococcal conjuga te vaccine, 13 valent Tristian Monique RN [facility] 04-22-2014 influenza, high dose seasonal, preservative-free Tristian Monique RN [facility] 06-28-2012 zoster vaccine, live Tristian Monique RN [facility] Work Phone: 04-26-2012 influenza virus vacc ine, unspecified formulation Tristian Monique RN [facility] Work Phone: 04-09-2011 tetanus and diphther ia toxoids, adsorbed, preservative free, for adult use (2 Lf of tetanus toxoid and 2 Lf of diphtheria toxoid) Tristian Monique RN [facility] 04-12-2009 influenza virus vacc ine, unspecified formulation Tristian Monique RN [facility] 05-22-2007 influenza virus vacc ine, unspecified formulation Tristian Monique RN [facility] Work Phone: 05-11-2006 influenza virus vacc ine, unspecified formulation Tristian Monique RN [facility] Work Phone: 05-18-2005 influenza virus vacc ine, unspecified formulation Tristian Monique RN [facility] Work Phone: 04-17-2004 pneumococcal polysaccharide vaccine, 23 valent Tristian Monique RN [facility] 11-19-1994 hepatitis B vaccine, pediatric or pediatric/adolescent dosage Tristian Monique RN [facility] Work Phone: 06-23-1994 hepatitis B vaccine, pediatric or pediatric/adolescent dosage Tristian Monique RN [facility] Work Phone: 05-21-1994 hepatitis B vaccine, pediatric or pediatric/adolescent dosage Tristian Monique RN [facility] Work Phone: Payers Date Payer Category Payer Unknown HOSPITAL/MEDICAL GENERIC MEDICAL GENERIC [id number] 2021-Present [phone] [address] [address] [place] [address] Indemnity [id number] 2021 Unknown [id number] 1998 Medicare MEDICARE MEDICAR E A AND B [id number] 1998-Present [phone] [place] [address] Medicare [id number] 1998 Medicare MEDICARE MEDICAR E A AND B [id number] 1998-Present [phone] [place] [address] Medicare [id number] 1998 Medicare [id number] Social History Date Type Detail Facility Start: 12-09-2020 End: 05-24-2022 Tobacco smoking status NHIS Ex-smoker [facility] Start: 1958 End: 03-11-1981 History of tobacco use Current smoker [facility] Start: 1958 End: 03-11-1981 History of tobacco use Cigarette Smoker [facility] Start: 09-17-2021 End: 10-15-2022 Alcohol intake Current drinker of alcohol (finding) [facility] Start: 09-17-2021 End: 11-22-2022 Alcohol intake [facility] Work Phone: Start: 12-09-2020 End: 05-24-2022 Tobacco Comment No household ETS. [facility] Start: 1940 Sex Assigned At Not on file C [facility] Start: 12-09-2020 End: 05-24-2022 Tobacco use and exposure Smokeless tobacco non-user [facility] Work Phone: Start: 04-18-2022 End: 05-24-2022 Exposure to SARS-CoV-2 (event) Not sure [facility] Start: 11-22-2022 End: 01-10-2023 Tobacco use panel [facility] Work Phone: Adult Depression Screening Assessment 0 [facility] Work Phone: Start: 05-25-2023 End: 08-02-2023 Alcohol intake Ex-drinker (finding) [facility] Start: 05-25-2023 Alcohol Comment 1-2 beers a day [facility] Goals Date Patient Goal Desired Activity /State Personal health goal Clinical Notes 12-09-2017 to 09-21-2023 Dylon Lubin RN - 09/21/2023 3:35 PM ESTTelephone Encounter - Henrique Pss, Thelma - 09/19/2023 3:53 PM ESTTelephone Encounter - Henrique Pss, Thelma - 09/19/2023 3:52 PM ESTPatient Instructions Note Date & Type Note Facility 09-21-2023 Note HNO ID: [id number] Author: DYLON LUBIN RN Service: ? Author Type: Registered Nurse Type: Progress Notes Filed: 09/21/2023 15:57 Note Text: CDM Telephonic Outreach Provider Action/FYI CDM: COPD Spk with spouse Ica she reported Damon is recently more tired with possible memory issues He is being evaluated by [facility], Ica noted Damon completed a CT, MRI, and labs tests. Ica denies new or worsening COPD symptoms, or illness. Damon has a 09/30/[address] Levine and 10/17/[address] Villalpando [facility] Contacted for: Routine Telephonic Outreach Contact made with patient: Yes Patient identified by name and date of . Discussed care with spouse Are you experiencing any new or worsening symptoms you need to talk about today? Yes Based on art editor, the following disposition is advised: No symptoms or symptoms present, not severe. Routed to: No Action Needed ELIA Education Provided this Outreach: No Dylon Lubin RN September 21, 2023 3:36 PM [facility] 09-21-2023 History of Presen t illness Narrative CDM Telephonic Outreach Provider Action/FYI CDM: COPD Spk with spouse Ica she reported Damon is recently more tired with possible memory issues He is being evaluated by [facility], Ica noted Damon completed a CT, MRI, and labs tests. Ica denies new or worsening COPD symptoms, or illness. Damon has a 09/30/[address] Levine and 10/17/[address] Villalpando Pulmonology Contacted for: Routine Telephonic Outreach Contact made with patient: Yes Patient identified by name and date of . Discussed care with spouse Are you experiencing any new or worsening symptoms you need to talk about today? Yes Based on art editor, the following disposition is advised: No symptoms or symptoms present, not severe. Routed to: No Action Needed ELIA Education Provided this Outreach: No Dylon Lubin RN September 21, 2023 3:36 PM documented in this encounter [facility] 09-21-2023 Note Patient Outreach [place] DAMON SWAN ([id number]) 1940 M Date Time Provider Department 09/21/23 DYLON LUBIN [facility] [place] During your visit today, we recorded the following information about you: Dylon Lubin RN 09/21/2023 3:57 PM Signed CDM Telephonic Outreach Provider Action/FYI CDM: COPD Spk with spouse Ica she reported Damon is recently more tired with possible memory issues He is being evaluated by [facility], Ica noted Damon completed a CT, MRI, and labs tests. Ica denies new or worsening COPD symptoms, or illness. Damon has a 09/30/[address] Levine and 10/17/[address] Villalpando Pul[facility] Contacted for: Routine Telephonic Outreach Contact made with patient: Yes Patient identified by name and date of . Discussed care with spouse Are you experiencing any new or worsening symptoms you need to talk about today? Yes Based on art editor, the following disposition is advised: No symptoms or symptoms present, not severe. Routed to: No Action Needed ELIA Education Provided this Outreach: Ronit Lubin RN September 21, 2023 3:36 PM Allergies As of Date: 09/21/2023 Noted Allergy Reaction KEITH INHIBITORS 01/12/2013 3 - Cough LYRICA (PREGABALIN) 10/03/2014 1 - Mental Status Change Comments: Causes depression PERCOCET (OXYCODONE-ACETAMINOPHEN) 010 1 - Mental Status Change Date Reviewed: 08/02/2023 Reviewed by: Arely Mckenna LPN - Fully Assessed Reason for Visit: Community Monitoring Outreach [Other] Prescriptions as of 09/21/2023 - buPROPion SR (WELLBUTRIN SR) 100 mg 12 hr tablet Take 1 tablet by mouth every morning. - pantoprazole DR (PROTONIX) 40 mg tablet Take 1 tablet by mouth once daily. - FEROSUL 325 mg (65 mg iron) tablet Take 1 tablet by mouth every afternoon. - albuterol HFA (PROVENTIL HFA) 90 mcg/actuation inhaler Inhale 2 Puffs as instructed every 4 hours as needed for wheezing/shortness of breath. - BREO ELLIPTA 100-25 mcg/dose inhaler USE 1 INHALATION ORALLY ONCE DAILY INSTRUCTED - tamsulosin (FLOMAX) 0.4 mg Take 1 capsule by mouth every evening. - apixaban (ELIQUIS) 5 mg tab(s) Take by mouth twice daily. - nitroglycerin sublingual (NITROQUICK) 0.4 mg SL tablet Dissolve 1 tablet under the tongue every 5 minutes as needed for chest pain. - furosemide (LASIX) 40 mg tablet Take 40 mg by mouth once daily. - isosorbide mononitrate ER (IMDUR) 30 mg 24 hr tablet Take 30 mg by mouth once daily. - atorvastatin (LIPITOR) 80 mg tablet Take 80 mg by mouth daily at bedtime. - sotalol 120 mg ORAL tablet Take 1 tablet by mouth twice daily. Meds Comments as of 01/09/2016: Currently on coumadin - unsure of current dose Pt does not take the Vit b. KB 01/09 Problem List As Of Date 09/21/2023 Noted Resolved Chest pain, unspecified [R07.9] 10/08/2010 Cough [R05.9] 06/07/2006 10/08/2010 COPD (chronic obstructive pulmonary disease) wi*08/15/2006 MIXED HYPERLIPIDEMIA [E78.2] 08/15/2006 MACULAR DEGENERATION NOS [H35.30] 08/15/2006 Personal history of colonic polyps [Z86.010] 08/15/2006 04/04/2018 Esophageal reflux [K21.9] 08/15/2006 BPH with obstruction/lower urinary tract sympto*08/15/2006 OVERWEIGHT [E66.9] 08/15/2006 03/10/2022 Acute, but ill-defined, cerebrovascular disease*12/29/2006 09/20/2011 Headache [R51] 12/29/2006 03/24/2010 Abdominal Pain, Right Upper Quadrant [R10.11] 05/15/2008 03/24/2010 FLATUL/ERUCTAT/GAS PAIN [R14.3, R14.1, R14.2] 05/15/2008 10/16/2008 SCREENING MAL NEOP-COLON [Z12.11] 05/15/2008 10/16/2008 HYPERGLYCEMIA [R79.89] 10/16/2008 09/25/2012 Atrial fibrillation (HCC) [I48.91] 11/24/2009 Insomnia [G47.00] 11/24/2009 09/25/2012 Depression [F32.A] 06/09/2011 09/25/2012 Actinic Keratosis: Premalignant AK [L57.0] 11/18/2011 10/03/2014 Skin tag [L91.8] 11/18/2011 09/25/2012 Intradermal nevus [D23.9] 11/18/2011 09/25/2012 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] 11/18/2011 09/25/2012 Actinic skin damage [L57.8] 11/18/2011 09/25/2012 Solar lentigo [L81.4] 11/18/2011 09/25/2012 Rhinitis [J31.0] 09/25/2012 Hyponatremia [E87.1] 09/28/2012 10/03/2014 Irritated//Inflamed Seborrheic Keratosis [L82.0]02/13/2014 10/03/2014 Pigmented Lentiginous Neoplasm Uncertain Behavi*02/13/2014 04/02/2017 Solar lentigo [L81.4] 02/13/2014 04/02/2017 Actinic skin damage [L57.8] 02/13/2014 Melanocytic nevus of trunk [D22.5] 02/13/2014 04/02/2017 Thrombocytopenia (HCC) [D69.6] 09/26/2014 05/25/2023 DDD (degenerative disc disease), lumbar [M51.36]07/18/2013 Edema of both legs [R60.0] 10/03/2014 Insomnia [G47.00] 10/03/2014 Orthostatic dizziness [R42] 04/02/2017 09/28/2017 Transient cerebral ischemia [G45.9] 12/09/2017 04/04/2018 Essential hypertension [I10] 12/26/2019 Impaired fasting glucose [R73.01] 10/17/2015 Obesity, Class I, BMI 30-34.9 [E66.9] 11/04/2020 Adenomatous polyp of (more content not included)... [facility] 09-19-2023 Miscellaneous Notes Patient's wants to know if this rx can be written for a 90 day supply. Patient has been identified by name and date of : Yes, Provider Aiden Spouse phones for refill(s): Requested Prescriptions Pending Prescriptions Disp Refills buPROPion SR (WELLBUTRIN SR) 100 mg 12 hr tablet Sig: Take 1 tablet by mouth every morning. Date of last office visit in primary care: 08/02/2023 Date of next office visit in primary care: 09/30/2023 Please advise. Thank you. Thelma Alex. documented in this encounter [facility] 08-19-2023 Note HNO ID: [id number] Author: DYLON LUBIN RN Service: ? Author Type: Registered Nurse Type: Progress Notes Filed: 08/19/2023 16:12 Note Text: CDM Telephonic Outreach Provider Action/FYI CDM: COPD Pt reports has some congestion, denies CP, Sob, wheezing or coughing, denies fever or chills or other symptom changes or concerns. Pt reports he is taking Coricidin, and may try Mucinex, instructed to contact PCP for any symptom or condition changes or concerns. He verbalized understanding and appreciation for the call Pt reported he was started on Wellbutrin for depression, denies the need to spk to [facility], will contact PCP office for changes in symptoms, concerns or needs. Contacted for: Routine Telephonic Outreach Contact made with patient: Yes Patient identified by name and date of . Discussed care with patient Are you experiencing any new or worsening symptoms you need to talk about today? Yes Based on art editor, the following disposition is advised: No symptoms or symptoms present, not severe. Routed to: No Action Needed ELIA Education Provided this Outreach: No Dylon Lubin RN August 19, 2023 3:34 PM [facility] 08-19-2023 History of Presen t illness Narrative CDM Telephonic Outreach Provider Action/FYI CDM: COPD Pt reports has some congestion, denies CP, Sob, wheezing or coughing, denies fever or chills or other symptom changes or concerns. Pt reports he is taking Coricidin, and may try Mucinex, instructed to contact PCP for any symptom or condition changes or concerns. He verbalized understanding and appreciation for the call Pt reported he was started on Wellbutrin for depression, denies the need to spk to [facility], will contact PCP office for changes in symptoms, concerns or needs. Contacted for: Routine Telephonic Outreach Contact made with patient: Yes Patient identified by name and date of . Discussed care with patient Are you experiencing any new or worsening symptoms you need to talk about today? Yes Based on art editor, the following disposition is advised: No symptoms or symptoms present, not severe. Routed to: No Action Needed ELIA Education Provided this Outreach: No Dylon Lubin RN August 19, 2023 3:34 PM CDM Telephonic Outreach Provider Action/FYI CDM: COPD Left a message to verify symptom status and needs. Instructed to call PCP with any symptom or condition changes. Contacted for: Routine Telephonic Outreach Contact made with patient: No, left message. Dylon Lubin RN August 18, 2023 2:09 PM documented in this encounter [facility] 08-18-2023 Note HNO ID: [id number] Author: DYLON LUBIN RN Service: ? Author Type: Registered Nurse Type: Progress Notes Filed: 08/19/2023 16:12 Note Text: CDM Telephonic Outreach Provider Action/FYI CDM: COPD Left a message to verify symptom status and needs. Instructed to call PCP with any symptom or condition changes. Contacted for: Routine Telephonic Outreach Contact made with patient: No, left message. Dylon Lubin RN August 18, 2023 2:09 PM [facility] 08-18-2023 Note Patient Outreach ([facility] DAMON SWAN ([id number]) 1940 M Date Time Provider Department 08/18/23 DYLON LUBIN [facility] [place] During your visit today, we recorded the following information about you: Dylon Lubin RN 08/19/2023 4:12 PM Signed CDM Telephonic Outreach Provider Action/FYI CDM: COPD Left a message to verify symptom status and needs. Instructed to call PCP with any symptom or condition changes. Contacted for: Routine Telephonic Outreach Contact made with patient: No, left message. Dylon Lubin RN August 18, 2023 2:09 PM Dylon Lubin RN 08/19/2023 4:12 PM Signed CDM Telephonic Outreach Provider Action/FYI CDM: COPD Pt reports has some congestion, denies CP, Sob, wheezing or coughing, denies fever or chills or other symptom changes or concerns. Pt reports he is taking Coricidin, and may try Mucinex, instructed to contact PCP for any symptom or condition changes or concerns. He verbalized understanding and appreciation for the call Pt reported he was started on Wellbutrin for depression, denies the need to spk to [facility], will contact PCP office for changes in symptoms, concerns or needs. Contacted for: Routine Telephonic Outreach Contact made with patient: Yes Patient identified by name and date of . Discussed care with patient Are you experiencing any new or worsening symptoms you need to talk about today? Yes Based on art editor, the following disposition is advised: No symptoms or symptoms present, not severe. Routed to: No Action Needed ELIA Education Provided this Outreach: No Dylon Lubin RN August 19, 2023 3:34 PM Allergies As of Date: 08/18/2023 Noted Allergy Reaction KEITH INHIBITORS 01/12/2013 3 - Cough LYRICA (PREGABALIN) 10/03/2014 1 - Mental Status Change Comments: Causes depression PERCOCET (OXYCODONE-ACETAMINOPHEN) 010 1 - Mental Status Change Date Reviewed: 08/02/2023 Reviewed by: Arely Mckenna LPN - Fully Assessed Reason for Visit: Community Monitoring Outreach [Other] Prescriptions as of 08/19/2023 - pantoprazole DR (PROTONIX) 40 mg tablet Take 1 tablet by mouth once daily. - buPROPion SR (WELLBUTRIN SR) 100 mg 12 hr tablet Take 1 tablet by mouth every morning. - FEROSUL 325 mg (65 mg iron) tablet Take 1 tablet by mouth every afternoon. - albuterol HFA (PROVENTIL HFA) 90 mcg/actuation inhaler Inhale 2 Puffs as instructed every 4 hours as needed for wheezing/shortness of breath. - BREO ELLIPTA 100-25 mcg/dose inhaler USE 1 INHALATION ORALLY ONCE DAILY INSTRUCTED - tamsulosin (FLOMAX) 0.4 mg Take 1 capsule by mouth every evening. - apixaban (ELIQUIS) 5 mg tab(s) Take by mouth twice daily. - nitroglycerin sublingual (NITROQUICK) 0.4 mg SL tablet Dissolve 1 tablet under the tongue every 5 minutes as needed for chest pain. - furosemide (LASIX) 40 mg tablet Take 40 mg by mouth once daily. - isosorbide mononitrate ER (IMDUR) 30 mg 24 hr tablet Take 30 mg by mouth once daily. - atorvastatin (LIPITOR) 80 mg tablet Take 80 mg by mouth daily at bedtime. - sotalol 120 mg ORAL tablet Take 1 tablet by mouth twice daily. Meds Comments as of 01/09/2016: Currently on coumadin - unsure of current dose Pt does not take the Vit b. KB 01/09 Problem List As Of Date 08/18/2023 Noted Resolved Chest pain, unspecified [R07.9] 10/08/2010 Cough [R05.9] 06/07/2006 10/08/2010 COPD (chronic obstructive pulmonary disease) wi*08/15/2006 MIXED HYPERLIPIDEMIA [E78.2] 08/15/2006 MACULAR DEGENERATION NOS [H35.30] 08/15/2006 Personal history of colonic polyps [Z86.010] 08/15/2006 04/04/2018 Esophageal reflux [K21.9] 08/15/2006 BPH with obstruction/lower urinary tract sympto*08/15/2006 OVERWEIGHT [E66.9] 08/15/2006 03/10/2022 Acute, but ill-defined, cerebrovascular disease*12/29/2006 09/20/2011 Headache [R51] 12/29/2006 03/24/2010 Abdominal Pain, Right Upper Quadrant [R10.11] 05/15/2008 03/24/2010 FLATUL/ERUCTAT/GAS PAIN [R14.3, R14.1, R14.2] 05/15/2008 10/16/2008 SCREENING MAL NEOP-COLON [Z12.11] 05/15/2008 10/16/2008 HYPERGLYCEMIA [R79.89] 10/16/2008 09/25/2012 Atrial fibrillation (HCC) [I48.91] 11/24/2009 Insomnia [G47.00] 11/24/2009 09/25/2012 Depression [F32.A] 06/09/2011 09/25/2012 Actinic Keratosis: Premalignant AK [L57.0] 11/18/2011 10/03/2014 Skin tag [L91.8] 11/18/2011 09/25/2012 Intradermal nevus [D23.9] 11/18/2011 09/25/2012 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 [facility] 08-02-2023 Note HNO ID: [id number] Author: JOSE WOLFE MD Service: ? Author Type: Physician Type: Progress Notes Filed: 08/02/2023 18:14 Note Text: This note was created using Shope[employer]. Subjective Patient presents with: 5 week follow-up Damon Swan is a 83 year old male here with . His labs were okay, and he had no symptoms of urinary tract infection. His fatigue, somnolence, and confusion improved. His mood continued to be flat. He still fell asleep during the day, and had less sleep at night. Blood pressure was low today, but he had no symptoms. indicated fluid intake was low. He noticed for a few weeks, that his gait sped up the longer he walked. He like his feet were trying to catch up with his head. He denied any falls. He had occasional tremors. Review of Systems Constitutional: Positive for fatigue. Negative for appetite change and fever. HENT: Negative for congestion and sore throat. Respiratory: Negative for shortness of breath. Cardiovascular: Negative for chest pain, palpitations and leg swelling. Gastrointestinal: Negative for diarrhea, nausea and vomiting. Genitourinary: Negative for difficulty urinating and dysuria. Neurological: Negative for dizziness, light-headedness and headaches. Psychiatric/Behavioral: Positive for dysphoric mood and sleep disturbance. 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 pantoprazole DR (PROTONIX) 40 mg tablet Take 40 mg by mouth once daily. albuterol HFA (PROVENTIL HFA) 90 mcg/actuation inhaler Inhale 2 Puffs as instructed every 4 hours as needed for wheezing/shortness of breath. BREO ELLIPTA 100-25 mcg/dose inhaler USE 1 INHALATION ORALLY ONCE DAILY INSTRUCTED tamsulosin (FLOMAX) 0.4 mg Take 1 capsule by mouth every evening. apixaban (ELIQUIS) 5 mg tab(s) Take by mouth twice daily. nitroglycerin sublingual (NITROQUICK) 0.4 mg SL tablet Dissolve 1 tablet under the tongue every 5 minutes as needed for chest pain. furosemide (LASIX) 40 mg tablet Take 40 mg by mouth once daily. isosorbide mononitrate ER (IMDUR) 30 mg 24 hr tablet Take 30 mg by mouth once daily. atorvastatin (LIPITOR) 80 mg tablet Take 80 mg by mouth daily at bedtime. sotalol 120 mg ORAL tablet Take 1 tablet by mouth twice daily. No current facility-administered medications for this visit. Objective BP 98/64 (BP Site: Left Arm, BP Position: Sitting, BP Cuff Size: Large Adult) Pulse 64 Temp 36.5 ?C (97.7 ?F) (Temporal) Wt 85.3 kg (188 lb) SpO2 97% BMI (P) 31.77 kg/m? Physical Exam Constitutional: Appearance: He is not ill-appearing. HENT: Head: Normocephalic. Eyes: Extraocular Movements: Extraocular movements intact. Cardiovascular: Rate and Rhythm: Normal rate and regular rhythm. Heart sounds: No murmur heard. No gallop. Pulmonary: Effort: No respiratory distress. Breath sounds: No wheezing or rales. Abdominal: Tenderness: There is no abdominal tenderness. Musculoskeletal: Right lower leg: No edema. Left lower leg: No edema. Neurological: General: No focal deficit present. Cranial Nerves: Cranial nerves 2-12 are intact. Sensory: Sensation is intact. Motor: No weakness, tremor or abnormal muscle tone. Coordination: Coordination is intact. Gait: Gait abnormal. Comments: Festinating gait. Psychiatric: Attention and Perception: Attention normal. Mood and Affect: Affect is flat. Speech: Speech is delayed. Behavior: Behavior is cooperative. Thought Content: Thought content normal. Cognition and Memory: Cognition is impaired. Assessment and Plan 1. Dysthymia - ICD9: 300.4, ICD10: F34.1 (primary diagnosis) Take only in the morning. Discussed medication dosage, usage, goals of therapy, and side effects. - BUPROPION HCL SR 100 MG TABLET,12 HR SUSTAINED-RELEASE 2. COPD with chronic bronchitis - ICD9: 491.20, ICD10: J44.89 Stable. 3. Atherosclerosis of coronary artery of [place] heart with angina pectoris, unspecified vessel or lesion type (HCC) - ICD9: 414.01, 413.9, ICD10: I25.119 Stable. 4. Atrial fibrillation (HCC) - ICD9: 427.31, ICD10: I48.91 Controlled. 5. Essential hypertension - ICD9: (more content not included)... [facility] 07-17-2023 Note HNO ID: [id number] Author: Dylon Lubin RN Service: ? Author Type: Registered Nurse Type: Progress Notes Filed: 07/17/2023 1:27 PM Note Text: CDM Telephonic Outreach Provider Action/FYI CDM: COPD Called Pt to verify symptoms and needs, line was busy, unable to leave a message. Contacted for: Routine Telephonic Outreach Contact made with patient: No, unable to leave message. Will reattempt call Dylon Lubin RN July 17, 2023 1:25 PM [facility] 07-17-2023 History of Presen t illness Narrative CDM Telephonic Outreach Provider Action/FYI CDM: COPD Called Pt to verify symptoms and needs, line was busy, unable to leave a message. Contacted for: Routine Telephonic Outreach Contact made with patient: No, unable to leave message. Will reattempt call Dylon Lubin RN July 17, 2023 1:25 PM CDM Telephonic Outreach Provider Action/FYI CDM: COPD Left a message to verify symptom status, instructed to call PCP with any changes in condition or needs. Contacted for: Routine Telephonic Outreach Contact made with patient: No, left message. Dylon Lubin RN July 14, 2023 11:03 AM documented in this encounter [facility] 07-14-2023 Note Patient Outreach [place] DAMON SWAN ([id number]) 1940 M Date Time Provider Department 07/14/23 DYLON LUBIN [facility] [place] During your visit today, we recorded the following information about you: Dylon Lubin RN 07/17/2023 1:27 PM Signed CDM Telephonic Outreach Provider Action/FYI CDM: COPD Left a message to verify symptom status, instructed to call PCP with any changes in condition or needs. Contacted for: Routine Telephonic Outreach Contact made with patient: No, left message. Dylon Lubin RN July 14, 2023 11:03 AM Dylon Lubin RN 07/17/2023 1:27 PM Signed CDM Telephonic Outreach Provider Action/FYI CDM: COPD Called Pt to verify symptoms and needs, line was busy, unable to leave a message. Contacted for: Routine Telephonic Outreach Contact made with patient: No, unable to leave message. Will reattempt call Dylon Lubin RN July 17, 2023 1:25 PM Allergies As of Date: 07/14/2023 Noted Allergy Reaction KEITH INHIBITORS 01/12/2013 3 - Cough LYRICA (PREGABALIN) 10/03/2014 1 - Mental Status Change Comments: Causes depression PERCOCET (OXYCODONE-ACETAMINOPHEN) 010 1 - Mental Status Change Date Reviewed: 06/28/2023 Reviewed by: Arely Mckenna LPN - Fully Assessed Reason for Visit: Community Monitoring Outreach [Other] Prescriptions as of 07/17/2023 - FEROSUL 325 mg (65 mg iron) tablet Take 1 tablet by mouth every afternoon. - pantoprazole DR (PROTONIX) 40 mg tablet Take 40 mg by mouth once daily. - albuterol HFA (PROVENTIL HFA) 90 mcg/actuation inhaler Inhale 2 Puffs as instructed every 4 hours as needed for wheezing/shortness of breath. - BREO ELLIPTA 100-25 mcg/dose inhaler USE 1 INHALATION ORALLY ONCE DAILY INSTRUCTED - tamsulosin (FLOMAX) 0.4 mg Take 1 capsule by mouth every evening. - apixaban (ELIQUIS) 5 mg tab(s) Take by mouth twice daily. - nitroglycerin sublingual (NITROQUICK) 0.4 mg SL tablet Dissolve 1 tablet under the tongue every 5 minutes as needed for chest pain. - furosemide (LASIX) 40 mg tablet Take 40 mg by mouth once daily. - isosorbide mononitrate ER (IMDUR) 30 mg 24 hr tablet Take 30 mg by mouth once daily. - atorvastatin (LIPITOR) 80 mg tablet Take 80 mg by mouth daily at bedtime. - sotalol 120 mg ORAL tablet Take 1 tablet by mouth twice daily. Meds Comments as of 01/09/2016: Currently on coumadin - unsure of current dose Pt does not take the Vit b. KB 01/09 Problem List As Of Date 07/14/2023 Noted Resolved Chest pain, unspecified [R07.9] 10/08/2010 Cough [R05.9] 06/07/2006 10/08/2010 COPD (chronic obstructive pulmonary disease) wi*08/15/2006 MIXED HYPERLIPIDEMIA [E78.2] 08/15/2006 MACULAR DEGENERATION NOS [H35.30] 08/15/2006 Personal history of colonic polyps [Z86.010] 08/15/2006 04/04/2018 Esophageal reflux [K21.9] 08/15/2006 BPH with obstruction/lower urinary tract sympto*08/15/2006 OVERWEIGHT [E66.9] 08/15/2006 03/10/2022 Acute, but ill-defined, cerebrovascular disease*12/29/2006 09/20/2011 Headache [R51] 12/29/2006 03/24/2010 Abdominal Pain, Right Upper Quadrant [R10.11] 05/15/2008 03/24/2010 FLATUL/ERUCTAT/GAS PAIN [R14.3, R14.1, R14.2] 05/15/2008 10/16/2008 SCREENING MAL NEOP-COLON [Z12.11] 05/15/2008 10/16/2008 HYPERGLYCEMIA [R79.89] 10/16/2008 09/25/2012 Atrial fibrillation (HCC) [I48.91] 11/24/2009 Insomnia [G47.00] 11/24/2009 09/25/2012 Depression [F32.A] 06/09/2011 09/25/2012 Actinic Keratosis: Premalignant AK [L57.0] 11/18/2011 10/03/2014 Skin tag [L91.8] 11/18/2011 09/25/2012 Intradermal nevus [D23.9] 11/18/2011 09/25/2012 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] 11/18/2011 09/25/2012 Actinic skin damage [L57.8] 11/18/2011 09/25/2012 Solar lentigo [L81.4] 11/18/2011 09/25/2012 Rhinitis [J31.0] 09/25/2012 Hyponatremia [E87.1] 09/28/2012 10/03/2014 Irritated//Inflamed Seborrheic Keratosis [L82.0]02/13/2014 10/03/2014 Pigmented Lentiginous Neoplasm Uncertain Behavi*02/13/2014 04/02/2017 Solar lentigo [L81.4] 02/13/2014 04/02/2017 Actinic skin damage [L57.8] 02/13/2014 Melanocytic nevus of trunk [D22.5] 02/13/2014 04/02/2017 Thrombocytopenia (HCC) [D69.6] 09/26/2014 05/25/2023 DDD (degenerative disc disease), lumbar [M51.36]07/18/2013 Edema of both legs [R60.0] 10/03/2014 Insomnia [G47.00] 10/03/2014 Orthostatic dizziness [R42] 04/02/2017 09/28/2017 Transient cerebral ischemia [G45.9] 12/09/2017 04/04/2018 Essential hypertension [I10] 12/26/2019 Impaired fasting glucose [R73.01] 10/17/2015 Obesity, Class I, BMI 30-34.9 [E66.9] 11/04/2020 Adenomatous polyp of transverse colon [D12.3] 07/28/2022 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 [facility] 07-14-2023 Note HNO ID: [id number] Author: Dylon Lubin RN Service: ? Author Type: Registered Nurse Type: Progress Notes Filed: 07/17/2023 1:27 PM Note Text: CDM Telephonic Outreach Provider Action/FYI CDM: COPD Left a message to verify symptom status, instructed to call PCP with any changes in condition or needs. Contacted for: Routine Telephonic Outreach Contact made with patient: No, left message. Dylon Lubin RN July 14, 2023 11:03 AM [facility] 07-01-2023 Miscellaneous Notes Pt called in and scheduled to come in on Tuesday and do urine culture. Patient returns call and provider message reviewed. Spoke to Therese with lab to verify that new urine specimen is needed. Message left for patient to return call. Please notify patient that he needs to schedule a lab appointment for urine culture. Rosa Elena Mccarty RN Unable to reach patient. Left VM to return call to office. Please read below and advise. Courtnye Thomas MA ----- Message from Jose Wolfe MD sent at 06/30/2023 5:27 PM EST ----- Test results are okay EXCEPT urinalysis abnormal. Do urine culture & sensitivity. Submit a new specimen properly collected if needed. documented in this encounter [facility] 06-28-2023 Note HNO ID: [id number] Author: Jose Wolfe MD Service: ? Author Type: Physician Type: Progress Notes Filed: 06/28/2023 10:58 PM Note Text: This note was created using Ulympixriter. Subjective Damon Swan is a 83 year old male here for excessive sleepiness fatigue, confusion. Mental status varied, and this had been ongoing for 2 months. He had been followed regularly by Dr. Concepcion, [facility] due to his history of TIA, CVA with residual effects, anemia, and fatigue. He had been empirically treated for B12 deficiency without significant improvement. He was seen for this issue last month, and an MRI of the brain showed no acute findings. He was also treated for urinary tract infection with improvement. Review of Systems Constitutional: Positive for fatigue. Negative for appetite change, chills, diaphoresis, fever and unexpected weight change. HENT: Negative for congestion. Respiratory: Negative for cough, shortness of breath and wheezing. Cardiovascular: Negative for chest pain and leg swelling. Gastrointestinal: Negative for abdominal pain, blood in stool, diarrhea, nausea and vomiting. Genitourinary: Negative for difficulty urinating, dysuria and hematuria. Musculoskeletal: Negative for arthralgias and myalgias. Skin: Negative for rash and wound. Neurological: Negative for dizziness, facial asymmetry and headaches. Psychiatric/Behavioral: Positive for dysphoric mood. Crying for happy endings or minor inconveniences. 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, Unspecified Esophageal Reflux Bph With Obstruction/Lower Urinary Tract Symptoms Atrial Fibrillation (Hcc) Rhinitis Actinic Skin Damage Ddd (Degenerative Disc Disease), Lumbar Edema of Both Legs Insomnia Essential Hypertension Impaired Fasting Glucose Obesity, Class I, Bmi 30-34.9 Adenomatous Polyp of Transverse Colon Gave (Gastric Antral Vascular Ectasia) Generalized Weakness Radiculopathy, Cervical Region Occlusion and Stenosis of Bilateral Carotid Arteries Anticoagulated 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 Substance Use Topics Alcohol use: Not Currently Alcohol/week: 14.0 standard drinks of alcohol Types: 14 Cans of Beer (12oz) per week Comment: 1-2 beers a day Drug use: No Current Outpatient Medications Medication Sig FEROSUL 325 mg (65 mg iron) tablet Take 1 tablet by mouth every afternoon. pantoprazole DR (PROTONIX) 40 mg tablet Take 40 mg by mouth once daily. albuterol HFA (PROVENTIL HFA) 90 mcg/actuation inhaler Inhale 2 Puffs as instructed every 4 hours as needed for wheezing/shortness of breath. BREO ELLIPTA 100-25 mcg/dose inhaler USE 1 INHALATION ORALLY ONCE DAILY INSTRUCTED tamsulosin (FLOMAX) 0.4 mg Take 1 capsule by mouth every evening. apixaban (ELIQUIS) 5 mg tab(s) Take by mouth twice daily. nitroglycerin sublingual (NITROQUICK) 0.4 mg SL tablet Dissolve 1 tablet under the tongue every 5 minutes as needed for chest pain. furosemide (LASIX) 40 mg tablet Take 40 mg by mouth once daily. isosorbide mononitrate ER (IMDUR) 30 mg 24 hr tablet Take 30 mg by mouth once daily. atorvastatin (LIPITOR) 80 mg tablet Take 80 mg by mouth daily at bedtime. sotalol 120 mg ORAL tablet Take 1 tablet by mouth twice daily. No current facility-administered medications for this visit. Objective BP 126/66 (BP Site: Left Arm, BP Position: Sitting, BP Cuff Size: Large Adult) Pulse 64 Temp 36.2 ?C (97.1 ?F) (Temporal) Resp 18 Wt 84.8 kg (187 lb) BMI (P) 31.60 kg/m? Physical Exam Constitutional: General: He is not in acute distress. HENT: Head: Normocephalic. Nose: No congestion. Mouth/Throat: Mouth: Mucous membranes are moist. Pharynx: Oropharynx is clear. Eyes: General: No scleral icterus. Extraocular Movements: Extraocular movements intact. Conjunctiva/sclera: Conjunctivae normal. Cardiovascular: Rate and Rhythm: Normal rate and regular rhythm. Heart sounds: No murmur heard. No gallop. Pulmonary: Effort: No respiratory distress. Breath sounds: No wheezing or rales. Abdominal: Palpations: Abdomen is soft. Tenderness: There is no abdominal tenderness. Lymphadenopathy: Cervical: No cervical adenopathy. Neurological: General: No focal deficit present. Mental Status: He is alert. Psychiatric: Attention and Perception: He is inattentive. Mood and Affect: Mood is depressed. Speech: Speech is delayed. Speech is not slurred. Behavior: Behavior is cooperative. Cognit (more content not included)... [facility] 06-28-2023 History of Presen t illness Narrative This note was created using Ulympixriter. Subjective Damon Swan is a 83 year old male here for excessive sleepiness fatigue, confusion. Mental status varied, and this had been ongoing for 2 months. He had been followed regularly by Dr. Concepcion, [facility] due to his history of TIA, CVA with residual effects, anemia, and fatigue. He had been empirically treated for B12 deficiency without significant improvement. He was seen for this issue last month, and an MRI of the brain showed no acute findings. He was also treated for urinary tract infection with improvement. Review of Systems Constitutional: Positive for fatigue. Negative for appetite change, chills, diaphoresis, fever and unexpected weight change. HENT: Negative for congestion. Respiratory: Negative for cough, shortness of breath and wheezing. Cardiovascular: Negative for chest pain and leg swelling. Gastrointestinal: Negative for abdominal pain, blood in stool, diarrhea, nausea and vomiting. Genitourinary: Negative for difficulty urinating, dysuria and hematuria. Musculoskeletal: Negative for arthralgias and myalgias. Skin: Negative for rash and wound. Neurological: Negative for dizziness, facial asymmetry and headaches. Psychiatric/Behavioral: Positive for dysphoric mood. Crying for happy endings or minor inconveniences. 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, Unspecified Esophageal Reflux Bph With Obstruction/Lower Urinary Tract Symptoms Atrial Fibrillation (Hcc) Rhinitis Actinic Skin Damage Ddd (Degenerative Disc Disease), Lumbar Edema of Both Legs Insomnia Essential Hypertension Impaired Fasting Glucose Obesity, Class I, Bmi 30-34.9 Adenomatous Polyp of Transverse Colon Gave (Gastric Antral Vascular Ectasia) Generalized Weakness Radiculopathy, Cervical Region Occlusion and Stenosis of Bilateral Carotid Arteries Anticoagulated 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 Substance Use Topics Alcohol use: Not Currently Alcohol/week: 14.0 standard drinks of alcohol Types: 14 Cans of Beer (12oz) per week Comment: 1-2 beers a day Drug use: No Current Outpatient Medications Medication Sig FEROSUL 325 mg (65 mg iron) tablet Take 1 tablet by mouth every afternoon. pantoprazole DR (PROTONIX) 40 mg tablet Take 40 mg by mouth once daily. albuterol HFA (PROVENTIL HFA) 90 mcg/actuation inhaler Inhale 2 Puffs as instructed every 4 hours as needed for wheezing/shortness of breath. BREO ELLIPTA 100-25 mcg/dose inhaler USE 1 INHALATION ORALLY ONCE DAILY INSTRUCTED tamsulosin (FLOMAX) 0.4 mg Take 1 capsule by mouth every evening. apixaban (ELIQUIS) 5 mg tab(s) Take by mouth twice daily. nitroglycerin sublingual (NITROQUICK) 0.4 mg SL tablet Dissolve 1 tablet under the tongue every 5 minutes as needed for chest pain. furosemide (LASIX) 40 mg tablet Take 40 mg by mouth once daily. isosorbide mononitrate ER (IMDUR) 30 mg 24 hr tablet Take 30 mg by mouth once daily. atorvastatin (LIPITOR) 80 mg tablet Take 80 mg by mouth daily at bedtime. sotalol 120 mg ORAL tablet Take 1 tablet by mouth twice daily. No current facility-administered medications for this visit. Objective BP 126/66 (BP Site: Left Arm, BP Position: Sitting, BP Cuff Size: Large Adult) Pulse 64 Temp 36.2 C (97.1 F) (Temporal) Resp 18 Wt 84.8 kg (187 lb) BMI (P) 31.60 kg/m Physical Exam Constitutional: General: He is not in acute distress. HENT: Head: Normocephalic. Nose: No congestion. Mouth/Throat: Mouth: Mucous membranes are moist. Pharynx: Oropharynx is clear. Eyes: General: No scleral icterus. Extraocular Movements: Extraocular movements intact. Conjunctiva/sclera: Conjunctivae normal. Cardiovascular: Rate and Rhythm: Normal rate and regular rhythm. Heart sounds: No murmur heard. No gallop. Pulmonary: Effort: No respiratory distress. Breath sounds: No wheezing or rales. Abdominal: Palpations: Abdomen is soft. Tenderness: There is no abdominal tenderness. Lymphadenopathy: Cervical: No cervical adenopathy. Neurological: General: No focal deficit present. Mental Status: He is alert. Psychiatric: Attention and Perception: He is inattentive. Mood and Affect: Mood is depressed. Speech: Speech is delayed. Speech is not slurred. Behavior: Behavior is cooperative. Cognition and Memory: Cognition is impaired. 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 - CBC - BASIC METABOLIC PNL - TSH BLD 2. Altered mental status, unspecified altered mental status type - ICD9: 780.97, ICD10: R41.82 Etiology TBD - TSH BLD - UA DIP, URINE (POC) 3. Dysthymia - ICD9: 300.4, ICD10: F34.1 Mood labile. Pseudobulbar? - If work up negative, consider medication for mood. 4. Anemia, unspecified type - ICD9: 285.9, ICD10: D64.9 Recheck. 5. BPH with obstruction/lower urinary tract symptoms - ICD9: 600.01, 599.69, ICD10: N40.1, N13.8 Check for urinary tract infection. - URINALYSIS, WITH MICROSCOPIC Jose Wolfe MD documented in this encounter [facility] 06-21-2023 Miscellaneous Notes Patient Ica calling for MRI results, she said no one had called with them, her did not remember talking to anyone. Went over results, notes below from Sun Gan HYPERTRICHOLOGIST with understanding. said went to Neurology appt on 06/14/2023. Patient notified of provider's message below. Pt states yes, he did see Neurology on 06/14. Pt is waiting public transportation inspector from them after they review his recent Brain MRI result, as well. NIVIA Jewell APRN.CNP 06/16/2023 11:16 AM EST Please let the patient know there were not acute findings on the MRI. It did however show multiple past infarcts (ischemic strokes). Did he follow-up with his neurologist on 06/14? Sun Gan APRN.SAND ANALYST documented in this encounter [facility] 06-15-2023 Note HNO ID: [id number] Author: Derik Martinez, SAMIRA Service: Radiology Author Type: Technologist Type: Progress Notes Filed: 06/15/2023 4:24 PM Note Text: Radiology Service Progress Note PATIENT NAME: Damon Swan DATE OF SERVICE: June 15, 2023 TIME: 4:14 PM PATIENT IDENTITY VERIFICATION COMPLETED USING TWO (2) IDENTIFIERS: Name and Date of confirmed by patient verbally. FALL SCREENING: Has the patient had 2 falls in the last year or 1 fall with injury or currently using an Ambulatory Assistive Device (Walker, Cane, Wheelchair, Crutches, etc.)? No PATIENT GENDER DATA: Male PATIENT RELEVANT IMPLANT DATA REVIEWED: Yes RADIOLOGY DEPARTMENT: MR; Exam(s) Completed: Head: Routine Brain PERIPHERAL IV DATA: Not applicable SIGNED BY: SAMIRA Akins June 15, 2023 4:14 PM [facility] 06-15-2023 History of Presen t illness Narrative Radiology Service Progress Note PATIENT NAME: Damon Swan DATE OF SERVICE: June 15, 2023 TIME: 4:14 PM PATIENT IDENTITY VERIFICATION COMPLETED USING TWO (2) IDENTIFIERS: Name and Date of confirmed by patient verbally. FALL SCREENING: Has the patient had 2 falls in the last year or 1 fall with injury or currently using an Ambulatory Assistive Device (Walker, Cane, Wheelchair, Crutches, etc.)? No PATIENT GENDER DATA: Male PATIENT RELEVANT IMPLANT DATA REVIEWED: Yes RADIOLOGY DEPARTMENT: MR; Exam(s) Completed: Head: Routine Brain PERIPHERAL IV DATA: Not applicable SIGNED BY: SAMIRA Akins June 15, 2023 4:14 PM documented in this encounter [facility] 06-06-2023 Miscellaneous Notes Patient returned call and went over notes below from Sun Gan HYPERTRICHOLOGIST with understanding. Aware rx sent to pharmacy. Left vm for patient to return call to nurse for provider message. Ativan 0.5 mg sent, take at least one hour prior to MRI appointment time. Please make sure patient is aware this can cause drowsiness and he should not drive himself for the MRI Sun Gan APRN.SAND ANALYST Patient calls and states that he has MRI scheduled on 06/15/2023. Patient asking if provider can send him prescription into [facility] for medication to help calm him while doing MRI? Please review and advise, Renée Kelly RN documented in this encounter [facility] 06-01-2023 Miscellaneous Notes Patient notified of below results, verbalized understanding. Arely Mckenna LPN Urine negative for infection. Anemia has improved. B12, Vitamin D, iron levels normal Sun Gan APRN.DEON Pt asking for lab results from 05/25/2023. Annetta Young LPN documented in this encounter [facility] 05-30-2023 Note HNO ID: [id number] Author: Dylon Lubin RN Service: ? Author Type: Registered Nurse Type: Progress Notes Filed: 06/01/2023 12:14 PM Note Text: CDM Telephonic Outreach Provider Action/FYI CDM: COPD Spk with she reports Damon had a recent UTI, treated with antibiotics, with improved symptoms, denies fever or chills. Instructed to hydrate well 64 Oz or more daily, Pt's noted he is drinking a lot, is waiting on 2nd urine lab results to determine if the UTI is resolved. Pt had loose stools which has mostly resolved. Denies needs or concerns . Contacted for: Routine Telephonic Outreach Contact made with patient: Yes Patient identified by name and date of . Discussed care with spouse Are you experiencing any new or worsening symptoms you need to talk about today? No Disease Specific Do you check your blood pressure at home? Yes, Enter readings: Do you have new or worsening shortness of breath with activity? No Do you feel like you are dehydrated for any reason, including not being able to eat or drink normally, or having less urine/much darker urine than normal for you? No Do you check your daily weight at home? No and Do you have new or worsening cough? No Do you have new or worsening wheezing? No Do you need to use your rescue (Albuterol) inhaler or nebulizer more often than normal? No Based on art editor, the following disposition is advised: No symptoms or symptoms present, not severe. Routed to: No Action Needed ELIA Education Provided this Outreach: No Dylon Lubin RN May 30, 2023 5:39 PM [facility] 05-30-2023 History of Presen t illness Narrative CDM Telephonic Outreach Provider Action/FYI CDM: COPD Spk with she reports Damon had a recent UTI, treated with antibiotics, with improved symptoms, denies fever or chills. Instructed to hydrate well 64 Oz or more daily, Pt's noted he is drinking a lot, is waiting on 2nd urine lab results to determine if the UTI is resolved. Pt had loose stools which has mostly resolved. Denies needs or concerns . Contacted for: Routine Telephonic Outreach Contact made with patient: Yes Patient identified by name and date of . Discussed care with spouse Are you experiencing any new or worsening symptoms you need to talk about today? No Disease Specific Do you check your blood pressure at home? Yes, Enter readings: Do you have new or worsening shortness of breath with activity? No Do you feel like you are dehydrated for any reason, including not being able to eat or drink normally, or having less urine/much darker urine than normal for you? No Do you check your daily weight at home? No and Do you have new or worsening cough? No Do you have new or worsening wheezing? No Do you need to use your rescue (Albuterol) inhaler or nebulizer more often than normal? No Based on art editor, the following disposition is advised: No symptoms or symptoms present, not severe. Routed to: No Action Needed ELIA Education Provided this Outreach: No Dylon Lubin RN May 30, 2023 5:39 PM documented in this encounter [facility] 05-30-2023 Note Patient Outreach [place] [facility] DAMON SWAN ([id number]) 1940 M Date Time Provider Department 05/30/23 DYLON LUBIN [facility] [place] During your visit today, we recorded the following information about you: Dylon Lubin RN 06/01/2023 12:14 PM Signed CDM Telephonic Outreach Provider Action/FYI CDM: COPD Spk with she reports Damon had a recent UTI, treated with antibiotics, with improved symptoms, denies fever or chills. Instructed to hydrate well 64 Oz or more daily, Pt's noted he is drinking a lot, is waiting on 2nd urine lab results to determine if the UTI is resolved. Pt had loose stools which has mostly resolved. Denies needs or concerns . Contacted for: Routine Telephonic Outreach Contact made with patient: Yes Patient identified by name and date of . Discussed care with spouse Are you experiencing any new or worsening symptoms you need to talk about today? No Disease Specific Do you check your blood pressure at home? Yes, Enter readings: Do you have new or worsening shortness of breath with activity? No Do you feel like you are dehydrated for any reason, including not being able to eat or drink normally, or having less urine/much darker urine than normal for you? No Do you check your daily weight at home? No and Do you have new or worsening cough? No Do you have new or worsening wheezing? No Do you need to use your rescue (Albuterol) inhaler or nebulizer more often than normal? No Based on art editor, the following disposition is advised: No symptoms or symptoms present, not severe. Routed to: No Action Needed ELIA Education Provided this Outreach: No Dylon Lubin RN May 30, 2023 5:39 PM Allergies As of Date: 05/30/2023 Noted Allergy Reaction KEITH INHIBITORS 01/12/2013 3 - Cough LYRICA (PREGABALIN) 10/03/2014 1 - Mental Status Change Comments: Causes depression PERCOCET (OXYCODONE-ACETAMINOPHEN) 010 1 - Mental Status Change Date Reviewed: 05/25/2023 Reviewed by: Sun Gan APRN.SAND ANALYST - Fully Assessed Reason for Visit: Community Monitoring Outreach [Other] Prescriptions as of 06/01/2023 - albuterol HFA (PROVENTIL HFA) 90 mcg/actuation inhaler Inhale 2 Puffs as instructed every 4 hours as needed for wheezing/shortness of breath. - BREO ELLIPTA 100-25 mcg/dose inhaler USE 1 INHALATION ORALLY ONCE DAILY INSTRUCTED - tamsulosin (FLOMAX) 0.4 mg Take 1 capsule by mouth every evening. - apixaban (ELIQUIS) 5 mg tab(s) Take by mouth twice daily. - nitroglycerin sublingual (NITROQUICK) 0.4 mg SL tablet Dissolve 1 tablet under the tongue every 5 minutes as needed for chest pain. - furosemide (LASIX) 40 mg tablet Take 40 mg by mouth once daily. - isosorbide mononitrate ER (IMDUR) 30 mg 24 hr tablet Take 30 mg by mouth once daily. - atorvastatin (LIPITOR) 80 mg tablet Take 80 mg by mouth daily at bedtime. - sotalol 120 mg ORAL tablet Take 1 tablet by mouth twice daily. Meds Comments as of 01/09/2016: Currently on coumadin - unsure of current dose Pt does not take the Vit b. 01/09 Problem List As Of Date 05/30/2023 Noted Resolved Chest pain, unspecified [R07.9] 10/08/2010 Cough [R05.9] 06/07/2006 10/08/2010 COPD (chronic obstructive pulmonary disease) wi*08/15/2006 MIXED HYPERLIPIDEMIA [E78.2] 08/15/2006 MACULAR DEGENERATION NOS [H35.30] 08/15/2006 Personal history of colonic polyps [Z86.010] 08/15/2006 04/04/2018 Esophageal reflux [K21.9] 08/15/2006 BPH with obstruction/lower urinary tract sympto*08/15/2006 OVERWEIGHT [E66.9] 08/15/2006 03/10/2022 Acute, but ill-defined, cerebrovascular disease*12/29/2006 09/20/2011 Headache [R51] 12/29/2006 03/24/2010 Abdominal Pain, Right Upper Quadrant [R10.11] 05/15/2008 03/24/2010 FLATUL/ERUCTAT/GAS PAIN [R14.3, R14.1, R14.2] 05/15/2008 10/16/2008 SCREENING MAL NEOP-COLON [Z12.11] 05/15/2008 10/16/2008 HYPERGLYCEMIA [R79.89] 10/16/2008 09/25/2012 Atrial fibrillation (HCC) [I48.91] 11/24/2009 Insomnia [G47.00] 11/24/2009 09/25/2012 Depression [F32.A] 06/09/2011 09/25/2012 Actinic Keratosis: Premalignant AK [L57.0] 11/18/2011 10/03/2014 Skin tag [L91.8] 11/18/2011 09/25/2012 Intradermal nevus [D23.9] 11/18/2011 09/25/2012 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] 11/18/2011 09/25/2012 Actinic skin damage [L57.8] 11/18/2011 09/25/2012 Solar lentigo [L81.4] 11/18/2011 09/25/2012 Rhinitis [J31.0] 09/25/2012 Hyponatremia [E87.1] 09/28/2012 10/03/2014 Irritated//Inflamed Seborrheic Keratosis [L82.0]02/13/2014 10/03/2014 Pigmented Lentiginous Neoplasm Uncertain Behavi*02/13/2014 04/02/2017 Solar lentigo [L81.4] 02/13/2014 04/02/2017 Actinic skin damage [L57.8] 02/13/2014 Melanocytic nevus of trunk [D22.5] 02/13/2014 04/02/2017 Thrombocytopenia (HCC) [D69.6] 09/26/2014 05/25/2023 DDD (degenerative disc disease), lumbar [M51.36]07/18/2013 Edema of both legs [R60.0] 10/03 (more content not included)... [facility] 05-25-2023 Note HNO ID: [id number] Author: Sun Gan APRN.DEON Service: ? Author Type: Nurse Practitioner Type: Progress Notes Filed: 05/25/2023 11:54 AM Note Text: CC: Patient presents with: F/U 6 months HPI Damon Swan is a 83 year old male who presents today for above. He is here with his whose main concern today is ongoing confusion and disorientation. He was seen for this 05/09 and 05/16, treated with Bactrim for UTI. No acute findings on CT brain or labs. There was improvement noted at follow-up on 05/16 however symptoms have persisted from there. Fatigue and decreased appetite also remain a concern however he is eating more consistently now. Denies any new or worsening symptoms. Taking all medications as prescribed. Does not check BP at home. Medications for Afib and CAD managed by Dr. Jasso. He has a history of B12 deficiency, receiving monthly injections. This is managed by neurology Dr. Concepcion whom he has an appointment with on 06/15. Review of Systems Constitutional: Positive for activity change, appetite change and fatigue. Negative for chills, diaphoresis, fever and unexpected weight change. HENT: Negative for trouble swallowing. Eyes: Negative for visual disturbance. Respiratory: Negative for cough, choking, chest tightness, shortness of breath and wheezing. Cardiovascular: Negative for chest pain and leg swelling. Gastrointestinal: Negative for abdominal pain, blood in stool, diarrhea and vomiting. Genitourinary: Negative for decreased urine volume, difficulty urinating, dysuria, flank pain, frequency and urgency. Musculoskeletal: Negative for arthralgias, back pain, gait problem, myalgias, neck pain and neck stiffness. Skin: Negative for rash. Neurological: Positive for weakness. Negative for dizziness, tremors, syncope, speech difficulty, light-headedness, numbness and headaches. Hematological: Negative for adenopathy. Does not bruise/bleed easily. Psychiatric/Behavioral: Positive for confusion. Negative for agitation, behavioral problems, hallucinations and sleep disturbance. The patient is not nervous/anxious. PAST MEDICAL HISTORY Diagnosis Date Abdominal pain, right upper quadrant Acute gastritis without mention of hemorrhage Acute, but ill-defined, cerebrovascular disease 02/2007 ASTHMA UNSPECIFIED 08/15/2006 Atrial fibrillation (HCC) 11/24/2009 Chest pain, unspecified CHRONIC AIRWAY OBSTRUCTION NEC 08/15/2006 CORONARY ATHEROSCLER UNSPEC VESSEL 03/25/2005 Coronary atherosclerosis of [place] coronary artery CVA (cerebral vascular accident) (HCC) 1999 DDD (degenerative disc disease), lumbar 07/18/2013 Dr. Gates, [facility]. Dr. Mondragon. Pain Management. Depression 06/09/2011 External hemorrhoids without mention of complication Flatulence, eructation, and gas pain Hypertrophy of prostate with urinary obstruction and other lower urinary tract symptoms (LUTS) Impaired fasting glucose 10/17/2015 Incisional hernia without mention of obstruction or gangrene 11/2007 Legal blindness, as defined in [place] Reflux esophagitis Thrombocytopenia ([facility]) 09/26/2014 Transient cerebral ischemia 12/09/2017 Unspecified constipation Unspecified hyperplasia of prostate with urinary obstruction and other lower urinary tract symptoms (LUTS) 08/15/2006 PAST SURGICAL HISTORY Procedure Laterality Date ANGIOPLASTY 08/04/2012 Circumflex unsuccessful CABG, ARTERIAL, THREE 03/31/2004 COLONOSCOPY 07/14/2022 + adenomatous polyp COLONOSCOPY - DIAGNOSTIC 06/1998, 10/2002 COLONOSCOPY FLX DX W/COLLJ SPEC WHEN PFRMD 05/15/2008 COLONOSCOPY W/BIOPSY SINGLE/MULTIPLE 10/26/2018 Dr. Nicole Fonseca. Negative for microscopic colitis. ECHO STRESS 10/2007 EGD TRANSORAL BIOPSY SINGLE/MULTIPLE 05/15/2008 EGD W/O BRSH SPEC VARICIES INJ 07/13/2022 ESOPHAGOGASTRODUODENOSCOPY TRANSORAL DIAGNOSTIC 06/07/2001 EGD ESOPHAGOGASTRODUODENOSCOPY TRANSORAL DIAGNOSTIC 02/13/2007 EGD ESOPHAGOGASTRODUODENOSCOPY TRANSORAL DIAGNOSTIC 11/10/2011 EGD IMPLANT MESH OPN HERNIA RPR/DEBRIDEMENT CLOSURE 12/18/2007 LAPAROSCOPY SURG CHOLECYSTECTOMY 03/2006 Cholecystectomy, lap AND umbilical hernia repair LAPS SURG CHOLECYSTECTOMY W/CHOLANGIOGRAPHY 04/04/2006 LEFT HEART CATH 08/04/2012 subsequent PTCA and CHAD to RCA( [facility]) LEFT HEART CATH,PERCUTANEOUS 05/11/2006 Cardiac cath, L heart LEFT HEART CATH,PERCUTANEOUS October2009 Cardiac cath, L heart PULMONARY FUNCTION TEST 07/02/2004 REPAIR FIRST ABDOMINAL WALL HERNIA 12/18/2007 ALLERGIES Keith Inhibitors, Lyrica [Pregabalin], and Percocet [Oxycodone-Acetaminophen] MEDICATIONS albuterol HFA (PROVENTIL HFA) 90 mcg/actuation inhaler Inhale 2 Puffs as instructed every 4 hours as needed for wheezing/shortness of breath. BREO ELLIPTA 100-25 mcg/dose inhaler USE 1 INHALATION ORALLY ONCE DAILY INSTRUCTED tamsulosin (FLOMAX) 0.4 mg Take 1 capsule by mouth every evening. apixaban (ELIQUIS) (more content not included)... [facility] 05-25-2023 History of Presen t illness Narrative CC: Patient presents with: F/U 6 months HPI Damon Moran Sosa is a 83 year old male who presents today for above. He is here with his whose main concern today is ongoing confusion and disorientation. He was seen for this 05/09 and 05/16, treated with Bactrim for UTI. No acute findings on CT brain or labs. There was improvement noted at follow-up on 05/16 however symptoms have persisted from there. Fatigue and decreased appetite also remain a concern however he is eating more consistently now. Denies any new or worsening symptoms. Taking all medications as prescribed. Does not check BP at home. Medications for Afib and CAD managed by Dr. Jasso. He has a history of B12 deficiency, receiving monthly injections. This is managed by neurology Dr. Concepcion whom he has an appointment with on 06/15. Review of Systems Constitutional: Positive for activity change, appetite change and fatigue. Negative for chills, diaphoresis, fever and unexpected weight change. HENT: Negative for trouble swallowing. Eyes: Negative for visual disturbance. Respiratory: Negative for cough, choking, chest tightness, shortness of breath and wheezing. Cardiovascular: Negative for chest pain and leg swelling. Gastrointestinal: Negative for abdominal pain, blood in stool, diarrhea and vomiting. Genitourinary: Negative for decreased urine volume, difficulty urinating, dysuria, flank pain, frequency and urgency. Musculoskeletal: Negative for arthralgias, back pain, gait problem, myalgias, neck pain and neck stiffness. Skin: Negative for rash. Neurological: Positive for weakness. Negative for dizziness, tremors, syncope, speech difficulty, light-headedness, numbness and headaches. Hematological: Negative for adenopathy. Does not bruise/bleed easily. Psychiatric/Behavioral: Positive for confusion. Negative for agitation, behavioral problems, hallucinations and sleep disturbance. The patient is not nervous/anxious. PAST MEDICAL HISTORY Diagnosis Date Abdominal pain, right upper quadrant Acute gastritis without mention of hemorrhage Acute, but ill-defined, cerebrovascular disease 02/2007 ASTHMA UNSPECIFIED 08/15/2006 Atrial fibrillation (HCC) 11/24/2009 Chest pain, unspecified CHRONIC AIRWAY OBSTRUCTION NEC 08/15/2006 CORONARY ATHEROSCLER UNSPEC VESSEL 03/25/2005 Coronary atherosclerosis of [place] coronary artery CVA (cerebral vascular accident) ([facility]) 1999 DDD (degenerative disc disease), lumbar 07/18/2013 Dr. Gates, [facility]. Dr. Mondragon. Pain Management. Depression 06/09/2011 External hemorrhoids without mention of complication Flatulence, eructation, and gas pain Hypertrophy of prostate with urinary obstruction and other lower urinary tract symptoms (LUTS) Impaired fasting glucose 10/17/2015 Incisional hernia without mention of obstruction or gangrene 11/2007 Legal blindness, as defined in [place] Reflux esophagitis Thrombocytopenia ([facility]) 09/26/2014 Transient cerebral ischemia 12/09/2017 Unspecified constipation Unspecified hyperplasia of prostate with urinary obstruction and other lower urinary tract symptoms (LUTS) 08/15/2006 PAST SURGICAL HISTORY Procedure Laterality Date ANGIOPLASTY 08/04/2012 Circumflex unsuccessful CABG, ARTERIAL, THREE 03/31/2004 COLONOSCOPY 07/14/2022 + adenomatous polyp COLONOSCOPY - DIAGNOSTIC 06/1998, 10/2002 COLONOSCOPY FLX DX W/COLLJ SPEC WHEN PFRMD 05/15/2008 COLONOSCOPY W/BIOPSY SINGLE/MULTIPLE 10/26/2018 Dr. Nicole Fonseca. Negative for microscopic colitis. ECHO STRESS 10/2007 EGD TRANSORAL BIOPSY SINGLE/MULTIPLE 05/15/2008 EGD W/O BRSH SPEC VARICIES INJ 07/13/2022 ESOPHAGOGASTRODUODENOSCOPY TRANSORAL DIAGNOSTIC 06/07/2001 EGD ESOPHAGOGASTRODUODENOSCOPY TRANSORAL DIAGNOSTIC 02/13/2007 EGD ESOPHAGOGASTRODUODENOSCOPY TRANSORAL DIAGNOSTIC 11/10/2011 EGD IMPLANT MESH OPN HERNIA RPR/DEBRIDEMENT CLOSURE 12/18/2007 LAPAROSCOPY SURG CHOLECYSTECTOMY 03/2006 Cholecystectomy, lap & umbilical hernia repair LAPS SURG CHOLECYSTECTOMY W/CHOLANGIOGRAPHY 04/04/2006 LEFT HEART CATH 08/04/2012 subsequent PTCA and CHAD to RCA( [facility]) LEFT HEART CATH,PERCUTANEOUS 05/11/2006 Cardiac cath, L heart LEFT HEART CATH,PERCUTANEOUS October2009 Cardiac cath, L heart PULMONARY FUNCTION TEST 07/02/2004 REPAIR FIRST ABDOMINAL WALL HERNIA 12/18/2007 ALLERGIES Keith Inhibitors, Lyrica [Pregabalin], and Percocet [Oxycodone-Acetaminophen] MEDICATIONS albuterol HFA (PROVENTIL HFA) 90 mcg/actuation inhaler Inhale 2 Puffs as instructed every 4 hours as needed for wheezing/shortness of breath. BREO ELLIPTA 100-25 mcg/dose inhaler USE 1 INHALATION ORALLY ONCE DAILY INSTRUCTED tamsulosin (FLOMAX) 0.4 mg Take 1 capsule by mouth every evening. apixaban (ELIQUIS) 5 mg tab(s) Take by mouth twice daily. nitroglycerin sublingual (NITROQUICK) 0.4 mg SL tablet Dissolve 1 tablet under the tongue every 5 minutes as needed for chest pain. furosemide (LASIX) 40 mg tablet Take 40 mg by mouth once daily. isosorbide mononitrate ER (IMDUR) 30 mg 24 hr tablet Take 30 mg by mouth once daily. atorvastatin (LIPITOR) 80 mg tablet Take 80 mg by mouth daily at bedtime. sotalol 120 mg ORAL tablet Take 1 tablet by mouth twice daily. FAMILY HISTORY Problem Relation Age of Onset Cancer Sister lymphoma other (stomach cancer [Other]) Father other (dementia [Other]) Mother age 93 Social History Tobacco Use Smoking status: Former Packs/day: 1.50 Years: 23.00 Additional pack years: 0.00 Total pack years: 34.50 Types: Cigarettes Start date: 1958 Quit date: 03/11/1981 Years since quittin.2 Smokeless tobacco: Never Tobacco comments: No household ETS. Substance Use Topics Alcohol use: Yes Alcohol/week: 35.0 standard drinks of alcohol Types: 14 Cans of Beer (12oz) per week Drug use: No BP 124/70 (BP Site: Left Arm, BP Position: Sitting, BP Cuff Size: Large Adult) Pulse 60 Wt 84.8 kg (187 lb) BMI (P) 31.60 kg/m Physical Exam Vitals reviewed. Constitutional: Appearance: Normal appearance. HENT: Head: Normocephalic and atraumatic. Eyes: Conjunctiva/sclera: Conjunctivae normal. Neck: Vascular: No carotid bruit. Cardiovascular: Rate and Rhythm: Normal rate and regular rhythm. Pulses: Normal pulses. Heart sounds: Normal heart sounds. No murmur heard. Pulmonary: Effort: Pulmonary effort is normal. Breath sounds: Normal breath sounds. No wheezing, rhonchi or rales. Abdominal: General: Bowel sounds are normal. Palpations: Abdomen is soft. Tenderness: There is no abdominal tenderness. There is no right CVA tenderness or left CVA tenderness. Musculoskeletal: Cervical back: Neck supple. Right lower leg: No edema. Left lower leg: No edema. Lymphadenopathy: Cervical: No cervical adenopathy. Skin: General: Skin is warm and dry. Neurological: Mental Status: He is alert. Gait: Gait is intact. Comments: Slow to answer most questions. Affect is labile. Stares straight ahead in the middle of the conversation, poor eye contact at times. Psychiatric: Attention and Perception: He is inattentive. Mood and Affect: Affect is labile. Speech: Speech is delayed. Behavior: Behavior is slowed and withdrawn. Thought Content: Thought content normal. Cognition and Memory: Cognition is impaired. Judgment: Judgment normal. Health maintenance reviewed with patient: RSV Vaccine(1 - 1-dose 60+ series) Never done DTaP,Tdap,Td Vaccine(1 - Tdap) due on 11/23/2023 LDL Cholesterol due on 11/16/2023 Diabetes Screening due on 05/09/2026 Influenza Vaccine Completed Advance Directive Discussion Completed Depression Assessment Completed Shingrix Vaccine Completed Covid-19 Vaccine Completed Pneumococcal Vaccine: 65+ Completed Spirometry Discontinued Colonoscopy Discontinued DATA REVIEWED: Most recent labs and imaging ASSESSMENT/PLAN: 1. Altered mental status, unspecified altered mental status type - ICD9: 780.97, ICD10: R41.82 (primary diagnosis) Ongoing. History of similar symptoms however significantly worse this time. - MRI BRAIN WO IVCON - recheck urine - recheck iron studies and B12 - follow-up with neurology as scheduled on 06/15 2. Anemia, unspecified type - ICD9: 285.9, ICD10: D64.9 Needs rechecked - CBC + DIFF - IRON + TIBC - FERRITIN BLD - VITAMIN B12 BLOOD - FOLATE SERUM 3. Vitamin D deficiency - ICD9: 268.9, ICD10: E55.9 See #1 - VITAMIN D 25 HYDROXY 4. TIA (transient ischemic attack) - ICD9: 435.9, ICD10: G45.9 See #1 - MRI BRAIN WO IVCON 5. Atherosclerosis of coronary artery of [place] heart with angina pectoris, unspecified vessel or lesion type (HCC) - ICD9: 414.01, 413.9, ICD10: I25.119 Stable. Medications and monitoring per Dr. Jasso 6. Atrial fibrillation, unspecified type (HCC) - ICD9: 427.31, ICD10: I48.91 Stable 7. COPD (chronic obstructive pulmonary disease) with chronic bronchitis - ICD9: 491.20, ICD10: J44.89 Stable. Medications and monitoring per [facility] pulmonology 8. BPH with obstruction/lower urinary tract symptoms - ICD9: 600.01, 599.69, ICD10: N40.1, N13.8 Stable 9. Essential hypertension - ICD9: 401.9, ICD10: I10 - Controlled - Continue current medications - Recommend home blood pressure monitoring, to bring results to next visit - Encouraged sodium restriction, DASH or Mediterranean diet Prescription instructions reviewed with patient as applicable. Potential red flag symptoms discussed with the patient. Reviewed appropriate action plan to take if red flag symptoms occur. Patient agreeable to treatment plan. Sun Gan APRN.DEON documented in this encounter [facility] 05-16-2023 Note HNO ID: [id number] Author: Sun Gan APRN.CNP Service: ? Author Type: Nurse Practitioner Type: Progress Notes Filed: 05/16/2023 1:27 PM Note Text: CC: Patient presents with: Recheck Immunizations: Flu vaccination HPI Damon Swan is a 83 year old male who presents today for above. He was seen one week ago for acute confusion, malaise, and poor appetite. Work-up with CT brain, CBC and CMP were negative. Urine culture was positive for UTI and he was started on Bactrim DS. He has one more day left of antibiotics. Patient states he is feeling better but still very tired, napping a lot. Confusion has greatly improved over the past two days, concurs. Appetite is much better as well. Denies any new or worsening symptoms. Review of Systems See HPI PAST MEDICAL HISTORY Diagnosis Date Abdominal pain, right upper quadrant Acute gastritis without mention of hemorrhage Acute, but ill-defined, cerebrovascular disease 02/2007 ASTHMA UNSPECIFIED 08/15/2006 Atrial fibrillation (HCC) 11/24/2009 Chest pain, unspecified CHRONIC AIRWAY OBSTRUCTION NEC 08/15/2006 CORONARY ATHEROSCLER UNSPEC VESSEL 03/25/2005 Coronary atherosclerosis of [place] coronary artery CVA (cerebral vascular accident) (HCC) 1999 DDD (degenerative disc disease), lumbar 07/18/2013 Dr. Gates, [facility]. Dr. Mondragon. Pain Management. Depression 06/09/2011 External hemorrhoids without mention of complication Flatulence, eructation, and gas pain Hypertrophy of prostate with urinary obstruction and other lower urinary tract symptoms (LUTS) Impaired fasting glucose 10/17/2015 Incisional hernia without mention of obstruction or gangrene 11/2007 Legal blindness, as defined in [place] Reflux esophagitis Thrombocytopenia ([facility]) 09/26/2014 Transient cerebral ischemia 12/09/2017 Unspecified constipation Unspecified hyperplasia of prostate with urinary obstruction and other lower urinary tract symptoms (LUTS) 08/15/2006 PAST SURGICAL HISTORY Procedure Laterality Date ANGIOPLASTY 08/04/2012 Circumflex unsuccessful CABG, ARTERIAL, THREE 03/31/2004 COLONOSCOPY 07/14/2022 + adenomatous polyp COLONOSCOPY - DIAGNOSTIC 06/1998, 10/2002 COLONOSCOPY FLX DX W/COLLJ SPEC WHEN PFRMD 05/15/2008 COLONOSCOPY W/BIOPSY SINGLE/MULTIPLE 10/26/2018 Dr. Nicole Fonseca. Negative for microscopic colitis. ECHO STRESS 10/2007 EGD TRANSORAL BIOPSY SINGLE/MULTIPLE 05/15/2008 EGD W/O BRSH SPEC VARICIES INJ 07/13/2022 ESOPHAGOGASTRODUODENOSCOPY TRANSORAL DIAGNOSTIC 06/07/2001 EGD ESOPHAGOGASTRODUODENOSCOPY TRANSORAL DIAGNOSTIC 02/13/2007 EGD ESOPHAGOGASTRODUODENOSCOPY TRANSORAL DIAGNOSTIC 11/10/2011 EGD IMPLANT MESH OPN HERNIA RPR/DEBRIDEMENT CLOSURE 12/18/2007 LAPAROSCOPY SURG CHOLECYSTECTOMY 03/2006 Cholecystectomy, lap AND umbilical hernia repair LAPS SURG CHOLECYSTECTOMY W/CHOLANGIOGRAPHY 04/04/2006 LEFT HEART CATH 08/04/2012 subsequent PTCA and CHAD to RCA( [place]) LEFT HEART CATH,PERCUTANEOUS 05/11/2006 Cardiac cath, L heart LEFT HEART CATH,PERCUTANEOUS October2009 Cardiac cath, L heart PULMONARY FUNCTION TEST 07/02/2004 REPAIR FIRST ABDOMINAL WALL HERNIA 12/18/2007 ALLERGIES Keith Inhibitors, Lyrica [Pregabalin], and Percocet [Oxycodone-Acetaminophen] MEDICATIONS sulfamethoxazole-trimethoprim (BACTRIM DS) 800-160 mg per tablet Take 1 tablet by mouth two times a day for 7 days. albuterol HFA (PROVENTIL HFA) 90 mcg/actuation inhaler Inhale 2 Puffs as instructed every 4 hours as needed for wheezing/shortness of breath. BREO ELLIPTA 100-25 mcg/dose inhaler USE 1 INHALATION ORALLY ONCE DAILY INSTRUCTED tamsulosin (FLOMAX) 0.4 mg Take 1 capsule by mouth every evening. apixaban (ELIQUIS) 5 mg tab(s) Take by mouth twice daily. nitroglycerin sublingual (NITROQUICK) 0.4 mg SL tablet Dissolve 1 tablet under the tongue every 5 minutes as needed for chest pain. furosemide (LASIX) 40 mg tablet Take 40 mg by mouth once daily. isosorbide mononitrate ER (IMDUR) 30 mg 24 hr tablet Take 30 mg by mouth once daily. atorvastatin (LIPITOR) 80 mg tablet Take 80 mg by mouth daily at bedtime. sotalol 120 mg ORAL tablet Take 1 tablet by mouth twice daily. FAMILY HISTORY Problem Relation Age of Onset Cancer Sister lymphoma other (stomach cancer [Other]) Father other (dementia [Other]) Mother age 93 Social History Tobacco Use Smoking status: Former Packs/day: 1.50 Years: 23.00 Additional pack years: 0.00 Total pack years: 34.50 Types: Cigarettes Start date: 1958 Quit date: 03/11/1981 Years since quittin.2 Smokeless tobacco: Never Tobacco comments: No household ETS. Substance Use Topics Alcohol use: Yes Alcohol/week: 35.0 standard drinks of alcohol Types: 14 Cans of Beer (12oz) per week Drug use: No BP 124/66 (BP Site: Left Arm, BP Position: Sitting, BP Cuff Size: Large Adult) Pulse 68 Temp 36.4 ?C (97.6 ?F) (Left Tympanic) Re (more content not included)... [facility] 05-16-2023 History of Presen t illness Narrative CC: Patient presents with: Recheck Immunizations: Flu vaccination HPI Damon D Frary is a 83 year old male who presents today for above. He was seen one week ago for acute confusion, malaise, and poor appetite. Work-up with CT brain, CBC and CMP were negative. Urine culture was positive for UTI and he was started on Bactrim DS. He has one more day left of antibiotics. Patient states he is feeling better but still very tired, napping a lot. Confusion has greatly improved over the past two days, concurs. Appetite is much better as well. Denies any new or worsening symptoms. Review of Systems See HPI PAST MEDICAL HISTORY Diagnosis Date Abdominal pain, right upper quadrant Acute gastritis without mention of hemorrhage Acute, but ill-defined, cerebrovascular disease 02/2007 ASTHMA UNSPECIFIED 08/15/2006 Atrial fibrillation (HCC) 11/24/2009 Chest pain, unspecified CHRONIC AIRWAY OBSTRUCTION NEC 08/15/2006 CORONARY ATHEROSCLER UNSPEC VESSEL 03/25/2005 Coronary atherosclerosis of [place] coronary artery CVA (cerebral vascular accident) ([facility]) 1999 DDD (degenerative disc disease), lumbar 07/18/2013 Dr. Gates, [facility]. Dr. Mondragon. Pain Management. Depression 06/09/2011 External hemorrhoids without mention of complication Flatulence, eructation, and gas pain Hypertrophy of prostate with urinary obstruction and other lower urinary tract symptoms (LUTS) Impaired fasting glucose 10/17/2015 Incisional hernia without mention of obstruction or gangrene 11/2007 Legal blindness, as defined in [place] Reflux esophagitis Thrombocytopenia (HCC) 09/26/2014 Transient cerebral ischemia 12/09/2017 Unspecified constipation Unspecified hyperplasia of prostate with urinary obstruction and other lower urinary tract symptoms (LUTS) 08/15/2006 PAST SURGICAL HISTORY Procedure Laterality Date ANGIOPLASTY 08/04/2012 Circumflex unsuccessful CABG, ARTERIAL, THREE 03/31/2004 COLONOSCOPY 07/14/2022 + adenomatous polyp COLONOSCOPY - DIAGNOSTIC 06/1998, 10/2002 COLONOSCOPY FLX DX W/COLLJ SPEC WHEN PFRMD 05/15/2008 COLONOSCOPY W/BIOPSY SINGLE/MULTIPLE 10/26/2018 Dr. Nicole Fonseca. Negative for microscopic colitis. ECHO STRESS 10/2007 EGD TRANSORAL BIOPSY SINGLE/MULTIPLE 05/15/2008 EGD W/O BRSH SPEC VARICIES INJ 07/13/2022 ESOPHAGOGASTRODUODENOSCOPY TRANSORAL DIAGNOSTIC 06/07/2001 EGD ESOPHAGOGASTRODUODENOSCOPY TRANSORAL DIAGNOSTIC 02/13/2007 EGD ESOPHAGOGASTRODUODENOSCOPY TRANSORAL DIAGNOSTIC 11/10/2011 EGD IMPLANT MESH OPN HERNIA RPR/DEBRIDEMENT CLOSURE 12/18/2007 LAPAROSCOPY SURG CHOLECYSTECTOMY 03/2006 Cholecystectomy, lap & umbilical hernia repair LAPS SURG CHOLECYSTECTOMY W/CHOLANGIOGRAPHY 04/04/2006 LEFT HEART CATH 08/04/2012 subsequent PTCA and CHAD to RCA( [facility]) LEFT HEART CATH,PERCUTANEOUS 05/11/2006 Cardiac cath, L heart LEFT HEART CATH,PERCUTANEOUS October2009 Cardiac cath, L heart PULMONARY FUNCTION TEST 07/02/2004 REPAIR FIRST ABDOMINAL WALL HERNIA 12/18/2007 ALLERGIES Keith Inhibitors, Lyrica [Pregabalin], and Percocet [Oxycodone-Acetaminophen] MEDICATIONS sulfamethoxazole-trimethoprim (BACTRIM DS) 800-160 mg per tablet Take 1 tablet by mouth two times a day for 7 days. albuterol HFA (PROVENTIL HFA) 90 mcg/actuation inhaler Inhale 2 Puffs as instructed every 4 hours as needed for wheezing/shortness of breath. BREO ELLIPTA 100-25 mcg/dose inhaler USE 1 INHALATION ORALLY ONCE DAILY INSTRUCTED tamsulosin (FLOMAX) 0.4 mg Take 1 capsule by mouth every evening. apixaban (ELIQUIS) 5 mg tab(s) Take by mouth twice daily. nitroglycerin sublingual (NITROQUICK) 0.4 mg SL tablet Dissolve 1 tablet under the tongue every 5 minutes as needed for chest pain. furosemide (LASIX) 40 mg tablet Take 40 mg by mouth once daily. isosorbide mononitrate ER (IMDUR) 30 mg 24 hr tablet Take 30 mg by mouth once daily. atorvastatin (LIPITOR) 80 mg tablet Take 80 mg by mouth daily at bedtime. sotalol 120 mg ORAL tablet Take 1 tablet by mouth twice daily. FAMILY HISTORY Problem Relation Age of Onset Cancer Sister lymphoma other (stomach cancer [Other]) Father other (dementia [Other]) Mother age 93 Social History Tobacco Use Smoking status: Former Packs/day: 1.50 Years: 23.00 Additional pack years: 0.00 Total pack years: 34.50 Types: Cigarettes Start date: 1958 Quit date: 03/11/1981 Years since quittin.2 Smokeless tobacco: Never Tobacco comments: No household ETS. Substance Use Topics Alcohol use: Yes Alcohol/week: 35.0 standard drinks of alcohol Types: 14 Cans of Beer (12oz) per week Drug use: No BP 124/66 (BP Site: Left Arm, BP Position: Sitting, BP Cuff Size: Large Adult) Pulse 68 Temp 36.4 C (97.6 F) (Left Tympanic) Resp 16 Wt 86.6 kg (191 lb) BMI (P) 32.28 kg/m Physical Exam Vitals reviewed. Constitutional: General: He is not in acute distress. Appearance: He is not ill-appearing. Cardiovascular: Rate and Rhythm: Normal rate and regular rhythm. Pulses: Normal pulses. Heart sounds: No murmur heard. Pulmonary: Effort: Pulmonary effort is normal. Breath sounds: Normal breath sounds. No wheezing, rhonchi or rales. Skin: General: Skin is warm and dry. Neurological: Mental Status: He is alert. Psychiatric: Mood and Affect: Mood normal. Speech: Speech normal. Behavior: Behavior normal. Behavior is cooperative. Thought Content: Thought content normal. Cognition and Memory: Cognition normal. DATA REVIEWED: Most recent labs and imaging results. ASSESSMENT/PLAN: 1. Urinary tract infection without hematuria, site unspecified - ICD9: 599.0, ICD10: N39.0 (primary diagnosis) Symptoms improving. No new or worsening symptoms. Complete antibiotics and recheck urine. - URINALYSIS, WITH MICROSCOPIC - URINE CULTURE Follow-up in one week as scheduled or sooner if symptoms persist or worsen 2. Acute confusion - ICD9: 293.0, ICD10: R41.0 As above 3. Malaise - ICD9: 780.79, ICD10: R53.81 As above 4. Need for influenza vaccination - ICD9: V04.81, ICD10: Z23 - INFLUENZA VACCINE, PRSV FREE, AGE 65+ YR, HIGH DOSE, QUADRIVALENT (FLUZONE HIGH-DOSE) 5. Encounter for immunization - ICD9: V03.89, ICD10: Z23 - [employer] COVID-19 VACCINE ( SEASON) AGE 12+ YR Prescription instructions reviewed with patient as applicable. Potential red flag symptoms discussed with the patient. Reviewed appropriate action plan to take if red flag symptoms occur. Patient agreeable to treatment plan. Sun Older, WATER OPERATOR.SAND ANALYST documented in this encounter [facility] 05-11-2023 Miscellaneous Notes Ica/spouse notified of below results/recommendations, verbalized understanding. Patient scheduled for 05/16/2023 for follow-up. Arely Mckenna LPN ----- Message from Sun Gan APRN.CNP sent at 05/11/2023 11:17 AM EDT ----- Urine culture positive, start antibiotics as soon as possible. Follow-up on Tuesday. Go to ER for any worsening symptoms Sun Gan APRN.CNP documented in this encounter [facility] 05-10-2023 Miscellaneous Notes notified of below results/recommendation, verbalized understanding. Arely Mckenna LPN ----- Message from Sun Gan APRN.SAND ANALYST sent at 05/10/2023 1:45 PM EDT ----- There were no acute findings on the CT scan of the brain to suggest stroke or other cause of symptoms. If urine testing is normal and symptoms don't improve recommend MRI of the brain Sun Gan APRN.SAND ANALYST documented in this encounter [facility] 05-10-2023 Note HNO ID: [id number] Author: Mary Moreno RT(R) Service: ? Author Type: Armored Car Driver Type: Progress Notes Filed: 05/10/2023 2:14 PM Note Text: Radiology Service Progress Note PATIENT NAME: Damon Swan DATE OF SERVICE: May 10, 2023 TIME: 2:14 PM PATIENT IDENTITY VERIFICATION COMPLETED USING TWO (2) IDENTIFIERS: Name and Date of confirmed by patient verbally. FALL SCREENING: Has the patient had 2 falls in the last year or 1 fall with injury or currently using an Ambulatory Assistive Device (Walker, Cane, Wheelchair, Crutches, etc.)? No PATIENT GENDER DATA: Male PATIENT RELEVANT IMPLANT DATA REVIEWED: Yes RADIOLOGY DEPARTMENT: CT; Exam(s) Completed: Brain PERIPHERAL IV DATA: Not applicable SIGNED BY: RT Horace(R) May 10, 2023 2:14 PM [facility] 05-10-2023 History of Presen t illness Narrative Radiology Service Progress Note PATIENT NAME: Damon Swan DATE OF SERVICE: May 10, 2023 TIME: 2:14 PM PATIENT IDENTITY VERIFICATION COMPLETED USING TWO (2) IDENTIFIERS: Name and Date of confirmed by patient verbally. FALL SCREENING: Has the patient had 2 falls in the last year or 1 fall with injury or currently using an Ambulatory Assistive Device (Walker, Cane, Wheelchair, Crutches, etc.)? No PATIENT GENDER DATA: Male PATIENT RELEVANT IMPLANT DATA REVIEWED: Yes RADIOLOGY DEPARTMENT: CT; Exam(s) Completed: Brain PERIPHERAL IV DATA: Not applicable SIGNED BY: RT Horace(R) May 10, 2023 2:14 PM documented in this encounter [facility] 05-10-2023 Miscellaneous Notes notified of below results, verbalized understanding. Arely Mckenna LPN ----- Message from Sun Gan APRN.CNP sent at 05/10/2023 8:08 AM EDT ----- Labs overall were stable, no acute findings. Chest x-ray was normal. Urinalysis and culture have not resulted yet Sun Older, WATER OPERATOR.SAND ANALYST documented in this encounter [facility] 05-09-2023 Note HNO ID: [id number] Author: Dylon Lynch RT(R) Service: Radiology Author Type: Technologist Type: Progress Notes Filed: 05/09/2023 3:50 PM Note Text: Radiology Service Progress Note PATIENT NAME: Damon Swan DATE OF SERVICE: May 09, 2023 TIME: 3:40 PM PATIENT IDENTITY VERIFICATION COMPLETED USING TWO (2) IDENTIFIERS: Name and Date of confirmed by patient verbally. FALL SCREENING: Has the patient had 2 falls in the last year or 1 fall with injury or currently using an Ambulatory Assistive Device (Walker, Cane, Wheelchair, Crutches, etc.)? No PATIENT GENDER DATA: Male PATIENT RELEVANT IMPLANT DATA REVIEWED: Not Applicable RADIOLOGY DEPARTMENT: General X-ray: Exam(s) Completed: Chest X-Ray PERIPHERAL IV DATA: Not applicable SIGNED BY: RT Zach(R) May 09, 2023 3:40 PM [facility] 05-09-2023 Note HNO ID: [id number] Author: Sun Gan APRN.SAND ANALYST Service: ? Author Type: Nurse Practitioner Type: Progress Notes Filed: 05/09/2023 3:43 PM Note Text: CC: Patient presents with: Fatigue HPI Damon Swan is a 83 year old male who presents today with his for above. Patient's reports sudden onset acute confusion, malaise, weakness and stool incontinence starting about five days ago. Patient states he has been feeling very tired and admits to feeling disoriented at times. states he has been sleeping a lot, eating and drinking very little. 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 He asked his how many of their kids were at home alone that day even though they are adults. There have been no falls or head injuries. He does feel a little lightheaded at times. He had URI about one month ago, was negative for COVID and chest x-ray was normal. Still has lingering cough but all other symptoms resolved. No new medications or dose changes. He was doing well prior to this. Review of Systems Constitutional: Positive for activity change, appetite change (decreased) and fatigue. Negative for chills, diaphoresis, fever and unexpected weight change. HENT: Negative for congestion, ear pain, rhinorrhea, sinus pressure, sore throat and trouble swallowing. Eyes: Negative for visual disturbance (legally blind). Respiratory: Positive for cough (chronic). Negative for chest tightness, shortness of breath and wheezing. Cardiovascular: Negative for chest pain, palpitations and leg swelling. Gastrointestinal: Positive for diarrhea (with incontinence). Negative for abdominal pain, blood in stool, nausea and vomiting. Genitourinary: Negative for decreased urine volume, difficulty urinating, dysuria, frequency, hematuria and urgency. Neurological: Negative for tremors, seizures, syncope, facial asymmetry, speech difficulty, numbness and headaches. Psychiatric/Behavioral: Negative for agitation, behavioral problems, dysphoric mood and hallucinations. The patient is not nervous/anxious. PAST MEDICAL HISTORY Diagnosis Date Abdominal pain, right upper quadrant Acute gastritis without mention of hemorrhage Acute, but ill-defined, cerebrovascular disease 02/2007 ASTHMA UNSPECIFIED 08/15/2006 Atrial fibrillation (HCC) 11/24/2009 Chest pain, unspecified CHRONIC AIRWAY OBSTRUCTION NEC 08/15/2006 CORONARY ATHEROSCLER UNSPEC VESSEL 03/25/2005 Coronary atherosclerosis of [place] coronary artery CVA (cerebral vascular accident) ([facility]) 1999 DDD (degenerative disc disease), lumbar 07/18/2013 Dr. Gates, [facility]. Dr. Mondragon. Pain Management. Depression 06/09/2011 External hemorrhoids without mention of complication Flatulence, eructation, and gas pain Hypertrophy of prostate with urinary obstruction and other lower urinary tract symptoms (LUTS) Impaired fasting glucose 10/17/2015 Incisional hernia without mention of obstruction or gangrene 11/2007 Legal blindness, as defined in [place] Reflux esophagitis Thrombocytopenia (HCC) 09/26/2014 Transient cerebral ischemia 12/09/2017 Unspecified constipation Unspecified hyperplasia of prostate with urinary obstruction and other lower urinary tract symptoms (LUTS) 08/15/2006 PAST SURGICAL HISTORY Procedure Laterality Date ANGIOPLASTY 08/04/2012 Circumflex unsuccessful CABG, ARTERIAL, THREE 03/31/2004 COLONOSCOPY 07/14/2022 + adenomatous polyp COLONOSCOPY - DIAGNOSTIC 06/1998, 10/2002 COLONOSCOPY FLX DX W/COLLJ SPEC WHEN PFRMD 05/15/2008 COLONOSCOPY W/BIOPSY SINGLE/MULTIPLE 10/26/2018 Dr. Nicole Fonseca. Negative for microscopic colitis. ECHO STRESS 10/2007 EGD TRANSORAL BIOPSY SINGLE/MULTIPLE 05/15/2008 EGD W/O BRSH SPEC VARICIES INJ 07/13/2022 ESOPHAGOGASTRODUODENOSCOPY TRANSORAL DIAGNOSTIC 06/07/2001 EGD ESOPHAGOGASTRODUODENOSCOPY TRANSORAL DIAGNOSTIC 02/13/2007 EGD ESOPHAGOGASTRODUODENOSCOPY TRANSORAL DIAGNOSTIC 11/10/2011 EGD IMPLANT MESH OPN HERNIA RPR/DEBRIDEMENT CLOSURE 12/18/2007 LAPAROSCOPY SURG CHOLECYSTECTOMY 03/2006 Cholecystectomy, lap AND umbilical hernia repair LAPS SURG CHOLECYSTECTOMY W/CHOLANGIOGRAPHY 04/04/2006 LEFT HEART CATH 08/04/2012 subsequent PTCA and CHAD to RCA( [facility]) LEFT HEART CATH,PERCUTANEOUS 05/11/2006 Cardiac cath, L heart LEFT HEART CATH,PERCUTANEOUS October2009 Cardiac cath, L heart PULMONARY FUNCTION TEST 07/02/2004 REPAIR FIRST ABDOMINAL WALL HERNIA 12/18/2007 ALLERGIES Keith Inhibitors, Lyrica [Pregabalin], and Percocet [Oxycodone-Acetaminophen] MEDICATIONS albuterol HFA (PROVENTIL HFA) 90 mcg/actuation inhaler Inhale 2 Puffs as instructed every 4 hours as needed for wheezing/shortness of breath. BREO ELLIPTA 100-25 mcg/dose inhaler USE 1 INHALATION ORALLY ONCE DAILY INSTRUCTED tamsulosin (FLOMAX) 0.4 mg Take 1 capsule by mouth every evening. apixaban (ELIQUIS) 5 mg tab(s) Take by antony (more content not included)... [facility] 04-29-2023 Note HNO ID: [id number] Author: Dylon Lubin RN Service: ? Author Type: Registered Nurse Type: Progress Notes Filed: 04/29/2023 12:10 PM Note Text: CDM Telephonic Outreach Provider Action/FYI CDM: COPD Pt reported 04/11/23 seen in [facility] [place] ordered, Pt denies Sob, wheezing or coughing, fever or chills. Denies symptom concerns, or needs,feels improved Contacted for: Routine Telephonic Outreach Contact made with patient: Yes Patient identified by name and date of . Discussed care with patient Are you experiencing any new or worsening symptoms you need to talk about today? No Disease Specific Do you check your blood pressure at home? Yes, Enter readings: Not available Do you have new or worsening shortness of breath with activity? No Do you have new or worsening cough? No Do you have new or worsening wheezing? No Do you need to use your rescue (Albuterol) inhaler or nebulizer more often than normal? No Based on art editor, the following disposition is advised: No symptoms or symptoms present, not severe. Routed to: No Action Needed ELIA Education Provided this Outreach: No Dylon Lubin RN April 29, 2023 12:04 PM [facility] 04-29-2023 Note Patient Outreach [place] [facility] DAMON SWAN ([id number]) 1940 M Date Time Provider Department 04/29/23 DYLON LUBIN [facility] [place] During your visit today, we recorded the following information about you: Dylon Lubin RN 04/29/2023 12:10 PM Signed CDM Telephonic Outreach Provider Action/I CDM: COPD Pt reported 04/11/23 seen in [facility] [place], Pt denies Sob, wheezing or coughing, fever or chills. Denies symptom concerns, or needs,feels improved Contacted for: Routine Telephonic Outreach Contact made with patient: Yes Patient identified by name and date of . Discussed care with patient Are you experiencing any new or worsening symptoms you need to talk about today? No Disease Specific Do you check your blood pressure at home? Yes, Enter readings: Not available Do you have new or worsening shortness of breath with activity? No Do you have new or worsening cough? No Do you have new or worsening wheezing? No Do you need to use your rescue (Albuterol) inhaler or nebulizer more often than normal? No Based on art editor, the following disposition is advised: No symptoms or symptoms present, not severe. Routed to: No Action Needed ELIA Education Provided this Outreach: No Dylon Lubin RN April 29, 2023 12:04 PM Allergies As of Date: 04/29/2023 Noted Allergy Reaction KEITH INHIBITORS 01/12/2013 3 - Cough LYRICA (PREGABALIN) 10/03/2014 1 - Mental Status Change Comments: Causes depression PERCOCET (OXYCODONE-ACETAMINOPHEN) 010 1 - Mental Status Change Date Reviewed: 04/15/2023 Reviewed by: Suzan Villlapando MD - Fully Assessed Reason for Visit: Community Monitoring Outreach [Other] Prescriptions as of 04/29/2023 - albuterol HFA (PROVENTIL HFA) 90 mcg/actuation inhaler Inhale 2 Puffs as instructed every 4 hours as needed for wheezing/shortness of breath. - apixaban (ELIQUIS) 5 mg tab(s) Take by mouth twice daily. - aspirin, enteric coated (ASPIRIN, ENTERIC COATED) 81 mg EC tablet Take 1 tablet by mouth once daily. - atorvastatin (LIPITOR) 80 mg tablet Take 80 mg by mouth daily at bedtime. - BREO ELLIPTA 100-25 mcg/dose inhaler USE 1 INHALATION ORALLY ONCE DAILY INSTRUCTED - furosemide (LASIX) 40 mg tablet Take 40 mg by mouth once daily. - isosorbide mononitrate ER (IMDUR) 30 mg 24 hr tablet Take 30 mg by mouth once daily. - nitroglycerin sublingual (NITROQUICK) 0.4 mg SL tablet Dissolve 1 tablet under the tongue every 5 minutes as needed for chest pain. - sotalol 120 mg ORAL tablet Take 1 tablet by mouth twice daily. - tamsulosin (FLOMAX) 0.4 mg Take 1 capsule by mouth every evening. Meds Comments as of 01/09/2016: Currently on coumadin - unsure of current dose Pt does not take the Vit b. KB 01/09 Problem List As Of Date 04/29/2023 Noted Resolved Coronary atherosclerosis [I25.10] 03/25/2005 Chest pain, unspecified [R07.9] 10/08/2010 Cough [R05.9] 06/07/2006 10/08/2010 COPD (chronic obstructive pulmonary disease) wi*08/15/2006 MIXED HYPERLIPIDEMIA [E78.2] 08/15/2006 MACULAR DEGENERATION NOS [H35.30] 08/15/2006 Personal history of colonic polyps [Z86.010] 08/15/2006 04/04/2018 Esophageal reflux [K21.9] 08/15/2006 BPH with obstruction/lower urinary tract sympto*08/15/2006 OVERWEIGHT [E66.9] 08/15/2006 03/10/2022 Acute, but ill-defined, cerebrovascular disease*12/29/2006 09/20/2011 Headache [R51] 12/29/2006 03/24/2010 Abdominal Pain, Right Upper Quadrant [R10.11] 05/15/2008 03/24/2010 FLATUL/ERUCTAT/GAS PAIN [R14.3, R14.1, R14.2] 05/15/2008 10/16/2008 SCREENING MAL NEOP-COLON [Z12.11] 05/15/2008 10/16/2008 HYPERGLYCEMIA [R79.89] 10/16/2008 09/25/2012 Atrial fibrillation (HCC) [I48.91] 11/24/2009 Insomnia [G47.00] 11/24/2009 09/25/2012 Depression [F32.A] 06/09/2011 09/25/2012 Actinic Keratosis: Premalignant AK [L57.0] 11/18/2011 10/03/2014 Skin tag [L91.8] 11/18/2011 09/25/2012 Intradermal nevus [D23.9] 11/18/2011 09/25/2012 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] 11/18/2011 09/25/2012 Actinic skin damage [L57.8] 11/18/2011 09/25/2012 Solar lentigo [L81.4] 11/18/2011 09/25/2012 Rhinitis [J31.0] 09/25/2012 Hyponatremia [E87.1] 09/28/2012 10/03/2014 Irritated//Inflamed Seborrheic Keratosis [L82.0]02/13/2014 10/03/2014 Pigmented Lentiginous Neoplasm Uncertain Behavi*02/13/2014 04/02/2017 Solar lentigo [L81.4] 02/13/2014 04/02/2017 Actinic skin damage [L57.8] 02/13/2014 Melanocytic nevus of trunk [D22.5] 02/13/2014 04/02/2017 Thrombocytopenia (HCC) [D69.6] 09/26/2014 DDD (degenerative disc disease), lumbar [M51.36]07/18/2013 Edema of both legs [R60.0] 10/03/2014 Insomnia [G47.00] 10/03/2014 Orthostatic dizziness [R42] 04/02/2017 09/28/2017 Transient cerebral ischemia [G45.9] 12/09/2017 04/04/2018 Essential hypertension [I10] 12/26/2019 Impaired fasting glucose [R73.01] 10/17/2015 Obesity, Class (more content not included)... [facility] 04-29-2023 History of Presen t illness Narrative CDM Telephonic Outreach Provider Action/FYI CDM: COPD Pt reported 04/11/23 seen in [facility] [place], Pt denies Sob, wheezing or coughing, fever or chills. Denies symptom concerns, or needs,feels improved Contacted for: Routine Telephonic Outreach Contact made with patient: Yes Patient identified by name and date of . Discussed care with patient Are you experiencing any new or worsening symptoms you need to talk about today? No Disease Specific Do you check your blood pressure at home? Yes, Enter readings: Not available Do you have new or worsening shortness of breath with activity? No Do you have new or worsening cough? No Do you have new or worsening wheezing? No Do you need to use your rescue (Albuterol) inhaler or nebulizer more often than normal? No Based on art editor, the following disposition is advised: No symptoms or symptoms present, not severe. Routed to: No Action Needed ELIA Education Provided this Outreach: No Dylon Lubin, NIVIA April 29, 2023 12:04 PM documented in this encounter [facility] 04-15-2023 Note HNO ID: [id number] Author: Suzan Villalpando MD Service: ? Author Type: Physician Type: Progress Notes Filed: 04/15/2023 4:17 PM Note Text: . Respiratory [place] Note Patient name: Damon Swan PCP: Jose Wolfe MD CC: asthma COPD HPI: Damon Swan 82 year old obese male former 47-bstb-froy smoker, quitting 1980 with PMH significant for chronic cough, CAD s/p CABG, CVA, AF on AC and sotalol, GERD, history of GI bleed, h/o pleural effusions, former patient of , new to me. Current therapy consists of Breo Ellipta and as needed albuterol. Reviewing patient's chart, he first presented to clinic in 2003 with chronic cough. At that time he was on KEITH inhibitor and cough actually improved once this was discontinued but he had recrudescence of his cough. Dr. Hummel started him on Advair at that time for asthma related cough. He was lost to follow-up until he saw Dr. Lo in 2020. Treated for chronic bronchitis related to COPD. Pulmonary function test did not show significant obstruction, however, cough resolved with use of Breo Ellipta. Recently developed at upper respiratory infection, symptoms of mild fever, severe cough, no chest congestion or shortness of breath. Seen in urgent care, negative for COVID, CXR without acute process, prescribed cough medication and patient has improved. Prior to his upper respiratory infection he had no cough, wheezing, chest pain, shortness of breath. Has an albuterol inhaler which he has not used in many years. Pulmonary function test today are normal. DATA: PFT Review of spirometry shows no obstruction. Normal diffusing capacity. Labs: Component Ref Range AND Units 4 d ago SARS-CoV-2 (Agent of COVID-19) See comment Not detected Imaging / Diagnostic Studies: DATE OF EXAM: Apr 11 2023 11:19AM WOX [id number] - XR CHEST 2V FRONTAL/LAT / CLINICAL HISTORY: Acute cough Hemoptysis MQ: [id number] EXAM DATE/TIME: 04/11/2023 11:19 AM COMPARISON: Chest x-ray 10/15/2022 RESULT: Lines, tubes, and devices: None. Lungs and pleura: No consolidation. Stable nodular density overlying the left lower lung. No lung mass. No pleural effusion. No pneumothorax. Cardiomediastinal silhouette: Stable cardiomediastinal silhouette. Bones and soft tissues: Median sternotomy wires are noted. Degenerative disease of the thoracic spine. Resolution of pleural effusions I personally reviewed the images which show no major abnormalities Chest CT report from [facility] does not mention emphysema changes PAST MEDICAL HISTORY Diagnosis Date Abdominal pain, right upper quadrant Acute gastritis without mention of hemorrhage Acute, but ill-defined, cerebrovascular disease 02/2007 ASTHMA UNSPECIFIED 08/15/2006 Atrial fibrillation (HCC) 11/24/2009 Chest pain, unspecified CHRONIC AIRWAY OBSTRUCTION NEC 08/15/2006 CORONARY ATHEROSCLER UNSPEC VESSEL 03/25/2005 Coronary atherosclerosis of [place] coronary artery CVA (cerebral vascular accident) ([facility]) 1999 DDD (degenerative disc disease), lumbar 07/18/2013 Dr. Gates, [facility]. Dr. Mondragon. Pain Management. Depression 06/09/2011 External hemorrhoids without mention of complication Flatulence, eructation, and gas pain Hypertrophy of prostate with urinary obstruction and other lower urinary tract symptoms (LUTS) Impaired fasting glucose 10/17/2015 Incisional hernia without mention of obstruction or gangrene 11/2007 Legal blindness, as defined in [place] Reflux esophagitis Thrombocytopenia (HCC) 09/26/2014 Transient cerebral ischemia 12/09/2017 Unspecified constipation Unspecified hyperplasia of prostate with urinary obstruction and other lower urinary tract symptoms (LUTS) 08/15/2006 ALLERGIES Allergen Reactions Keith Inhibitors Cough Lyrica [Pregabalin] Mental Status Change Causes depression Percocet [Oxycodone* Mental Status Change BREO ELLIPTA 100-25 mcg/dose inhaler USE 1 INHALATION ORALLY ONCE DAILY INSTRUCTED tamsulosin (FLOMAX) 0.4 mg Take 1 capsule by mouth every evening. apixaban (ELIQUIS) 5 mg tab(s) Take by mouth twice daily. nitroglycerin sublingual (NITROQUICK) 0.4 mg SL tablet Dissolve 1 tablet under the tongue every 5 minutes as needed for chest pain. furosemide (LASIX) 40 mg tablet Take 40 mg by mouth once daily. isosorbide mononitrate ER (IMDUR) 30 mg 24 hr tablet Take 30 mg by mouth once daily. atorvastatin (LIPITOR) 80 mg tablet Take 80 mg by mouth daily at bedtime. sotalol 120 mg ORAL tablet Take 1 tablet by mouth twice daily. benzonatate (TESSALON PERLE) 100 mg capsule Take 1 capsule by mouth every 8 hours as needed for cough for up to 15 days. albuterol HFA (PROVENTIL HFA) 90 mcg/actuation inhaler Inhale 2 Puffs as instructed every 4 hours as needed for wheezing/shortness of breath. aspirin, enteric coated (ASPIRIN, ENTERIC COATED) 81 mg EC tablet Take 1 tablet by mouth once daily. (Avril (more content not included)... [facility] 04-15-2023 Note HNO ID: [id number] Author: Ashley Russell RPFT Service: ? Author Type: Respiratory Therapist Type: Progress Notes Filed: 04/15/2023 10:17 AM Note Text: PULM FUNCTION SMARTBLOCK: Provider: Soha Akhtar APRN.SAND ANALYST Assisting Tech: Ashley Russell RPFT Spirometry: 1 DLCO: 1 [facility] 04-15-2023 History of Presen t illness Narrative Images from the original note were not included. . [facility] [place] Note Patient name: Damon Swan PCP: Jose Wolfe MD CC: asthma COPD HPI: Damon Swan 82 year old obese male former [id number] smoker, quitting 1980 with PMH significant for chronic cough, CAD s/p CABG, CVA, AF on AC and sotalol, GERD, history of GI bleed, h/o pleural effusions, former patient of , new to me. Current therapy consists of Breo Ellipta and as needed albuterol. Reviewing patient's chart, he first presented to clinic in 2003 with chronic cough. At that time he was on KEITH inhibitor and cough actually improved once this was discontinued but he had recrudescence of his cough. Dr. Hummel started him on Advair at that time for asthma related cough. He was lost to follow-up until he saw Dr. Lo in 2020. Treated for chronic bronchitis related to COPD. Pulmonary function test did not show significant obstruction, however, cough resolved with use of Breo Ellipta. Recently developed at upper respiratory infection, symptoms of mild fever, severe cough, no chest congestion or shortness of breath. Seen in urgent care, negative for COVID, CXR without acute process, prescribed cough medication and patient has improved. Prior to his upper respiratory infection he had no cough, wheezing, chest pain, shortness of breath. Has an albuterol inhaler which he has not used in many years. Pulmonary function test today are normal. DATA: PFT Review of spirometry shows no obstruction. Normal diffusing capacity. Labs: Component Ref Range & Units 4 d ago SARS-CoV-2 (Agent of COVID-19) See comment Not detected Imaging / Diagnostic Studies: DATE OF EXAM: Apr 11 2023 11:19AM WOX [id number] - XR CHEST 2V FRONTAL/LAT / CLINICAL HISTORY: Acute cough Hemoptysis MQ: [id number]_6 EXAM DATE/TIME: 04/11/2023 11:19 AM COMPARISON: Chest x-ray 10/15/2022 RESULT: Lines, tubes, and devices: None. Lungs and pleura: No consolidation. Stable nodular density overlying the left lower lung. No lung mass. No pleural effusion. No pneumothorax. Cardiomediastinal silhouette: Stable cardiomediastinal silhouette. Bones and soft tissues: Median sternotomy wires are noted. Degenerative disease of the thoracic spine. Resolution of pleural effusions I personally reviewed the images which show no major abnormalities Chest CT report from [facility] does not mention emphysema changes PAST MEDICAL HISTORY Diagnosis Date Abdominal pain, right upper quadrant Acute gastritis without mention of hemorrhage Acute, but ill-defined, cerebrovascular disease 02/2007 ASTHMA UNSPECIFIED 08/15/2006 Atrial fibrillation (HCC) 11/24/2009 Chest pain, unspecified CHRONIC AIRWAY OBSTRUCTION NEC 08/15/2006 CORONARY ATHEROSCLER UNSPEC VESSEL 03/25/2005 Coronary atherosclerosis of [place] coronary artery CVA (cerebral vascular accident) ([facility]) 1999 DDD (degenerative disc disease), lumbar 07/18/2013 Dr. Gates, [facility]. Dr. Mondragon. Pain Management. Depression 06/09/2011 External hemorrhoids without mention of complication Flatulence, eructation, and gas pain Hypertrophy of prostate with urinary obstruction and other lower urinary tract symptoms (LUTS) Impaired fasting glucose 10/17/2015 Incisional hernia without mention of obstruction or gangrene 11/2007 Legal blindness, as defined in [place] Reflux esophagitis Thrombocytopenia (HCC) 09/26/2014 Transient cerebral ischemia 12/09/2017 Unspecified constipation Unspecified hyperplasia of prostate with urinary obstruction and other lower urinary tract symptoms (LUTS) 08/15/2006 ALLERGIES Allergen Reactions Keith Inhibitors Cough Lyrica [Pregabalin] Mental Status Change Causes depression Percocet [Oxycodone* Mental Status Change BREO ELLIPTA 100-25 mcg/dose inhaler USE 1 INHALATION ORALLY ONCE DAILY INSTRUCTED tamsulosin (FLOMAX) 0.4 mg Take 1 capsule by mouth every evening. apixaban (ELIQUIS) 5 mg tab(s) Take by mouth twice daily. nitroglycerin sublingual (NITROQUICK) 0.4 mg SL tablet Dissolve 1 tablet under the tongue every 5 minutes as needed for chest pain. furosemide (LASIX) 40 mg tablet Take 40 mg by mouth once daily. isosorbide mononitrate ER (IMDUR) 30 mg 24 hr tablet Take 30 mg by mouth once daily. atorvastatin (LIPITOR) 80 mg tablet Take 80 mg by mouth daily at bedtime. sotalol 120 mg ORAL tablet Take 1 tablet by mouth twice daily. benzonatate (TESSALON PERLE) 100 mg capsule Take 1 capsule by mouth every 8 hours as needed for cough for up to 15 days. albuterol HFA (PROVENTIL HFA) 90 mcg/actuation inhaler Inhale 2 Puffs as instructed every 4 hours as needed for wheezing/shortness of breath. aspirin, enteric coated (ASPIRIN, ENTERIC COATED) 81 mg EC tablet Take 1 tablet by mouth once daily. (Patient not taking: Reported on 04/15/2023) Social History Tobacco Use Smoking status: Former Packs/day: 1.50 Years: 23.00 Additional pack years: 0.00 Total pack years: 34.50 Types: Cigarettes Start date: 1958 Quit date: 03/11/1981 Years since quittin.1 Smokeless tobacco: Never Tobacco comments: No household ETS. Substance Use Topics Alcohol use: Yes Alcohol/week: 35.0 standard drinks of alcohol Types: 14 Cans of Beer (12oz) per week Drug use: No FAMILY HISTORY Problem Relation Age of Onset Cancer Sister lymphoma other (stomach cancer [Other]) Father other (dementia [Other]) Mother age 93 PAST SURGICAL HISTORY Procedure Laterality Date ANGIOPLASTY 08/04/2012 Circumflex unsuccessful CABG, ARTERIAL, THREE 03/31/2004 COLONOSCOPY 07/14/2022 + adenomatous polyp COLONOSCOPY - DIAGNOSTIC 06/1998, 10/2002 COLONOSCOPY FLX DX W/COLLJ SPEC WHEN PFRMD 05/15/2008 COLONOSCOPY W/BIOPSY SINGLE/MULTIPLE 10/26/2018 Dr. Nicole Fonseca. Negative for microscopic colitis. ECHO STRESS 10/2007 EGD TRANSORAL BIOPSY SINGLE/MULTIPLE 05/15/2008 EGD W/O BRSH SPEC VARICIES INJ 07/13/2022 ESOPHAGOGASTRODUODENOSCOPY TRANSORAL DIAGNOSTIC 06/07/2001 EGD ESOPHAGOGASTRODUODENOSCOPY TRANSORAL DIAGNOSTIC 02/13/2007 EGD ESOPHAGOGASTRODUODENOSCOPY TRANSORAL DIAGNOSTIC 11/10/2011 EGD IMPLANT MESH OPN HERNIA RPR/DEBRIDEMENT CLOSURE 12/18/2007 LAPAROSCOPY SURG CHOLECYSTECTOMY 03/2006 Cholecystectomy, lap & umbilical hernia repair LAPS SURG CHOLECYSTECTOMY W/CHOLANGIOGRAPHY 04/04/2006 LEFT HEART CATH 08/04/2012 subsequent PTCA and CHAD to RCA( [facility]) LEFT HEART CATH,PERCUTANEOUS 05/11/2006 Cardiac cath, L heart LEFT HEART CATH,PERCUTANEOUS October2009 Cardiac cath, L heart PULMONARY FUNCTION TEST 07/02/2004 REPAIR FIRST ABDOMINAL WALL HERNIA 12/18/2007 PMH, Social history, family history and surgical history reviewed and updated EMR REVIEW OF SYSTEMS: CONSTITUTIONAL: No fevers, chills, nightsweats, unintended weight loss HEENT: Denies nasal congestion/sinus symptoms, allergy problems. CARDIOVASCULAR: No chest pain, dyspnea, palpitations, orthopnea, PND. Mild left leg edema PULM: See HPI NEURO: No new balance problems, peripheral weakness/paresthesias or numbness of concern. INTEGUMENTARY: No new skin changes, rashes or bruising PHYSICAL EXAMINATION: BP 122/82 BP 122/82, P 61, RR 12, SpO2 99% on RA General Appearance: Obese male, NAD. Skin: Skin color, texture, turgor normal, no suspicious rashes or lesions. Head: Normocephalic, no masses, lesions, tenderness or abnormalities. Oropharynx: Dentures, no oral lesions. Neck: No JVD, no masses, no adenopathy. Lungs: Not labored, normal to percussion, no wheezes or crackles. Heart: RRR, no murmur. Extremities: No edema, no clubbing. Assessment/Plan: Chronic cough -Review of history and pulmonary function testing more consistent with cough related to asthma. Despite his smoking history, patient does not have obstruction on pulmonary function test which excludes COPD. -Once patient recovers from his current upper respiratory infection, he will hold his Breo Ellipta. He was instructed to contact the office if his cough recurs and restart his Breo Ellipta Former cigarette smoker -Former [id number] smoker having quit in 1980 without sequelae of COPD -Patient does not meet criteria for lung cancer screening based on his age and duration of smoking cessation Suzan Villalpando MD [facility] [place] documented in this encounter [facility] 04-15-2023 Nurse Note Intake information documented in the prior visit with BERNA Parra today. documented in this encounter [facility] 04-15-2023 History of Presen t illness Narrative PULM FUNCTION SMARTBLOCK: Provider: Soha Akhtar APRN.SAND ANALYST Assisting Tech: Ashley Russell RPFT Spirometry: 1 DLCO: 1 documented in this encounter [facility] 04-12-2023 Miscellaneous Notes Patient given results and verbalized understanding of instructions given. Dede Marie ----- Message from Aleah Lawson APRN.SAND ANALYST sent at 04/12/2023 7:23 AM EDT ----- Please advise patient the COVID test was negative. documented in this encounter [facility] 04-11-2023 Note HNO ID: [id number] Author: Kayla Fermin RT(R) Service: Radiology Author Type: Technologist Type: Progress Notes Filed: 04/11/2023 11:25 AM Note Text: Radiology Service Progress Note PATIENT NAME: Damon Swan DATE OF SERVICE: April 11, 2023 TIME: 11:14 AM PATIENT IDENTITY VERIFICATION COMPLETED USING TWO (2) IDENTIFIERS: Name and Date of confirmed by patient verbally. FALL SCREENING: Has the patient had 2 falls in the last year or 1 fall with injury or currently using an Ambulatory Assistive Device (Walker, Cane, Wheelchair, Crutches, etc.)? No PATIENT GENDER DATA: Male PATIENT RELEVANT IMPLANT DATA REVIEWED: Yes RADIOLOGY DEPARTMENT: General X-ray: Exam(s) Completed: Chest X-Ray PERIPHERAL IV DATA: Not applicable SIGNED BY: Kayla Fermin, RT(R) April 11, 2023 11:14 AM [facility] 04-11-2023 Note HNO ID: [id number] Author: Barrera Sykes MD Service: ? Author Type: Physician Type: Progress Notes Filed: 04/11/2023 11:46 AM Note Text: Patient presents with: Chest Congestion: cough x 5-6 days HPI: Feeling sick for about 1 week. His is sick with cough also. Positive symptoms: cough, Wheezing one day (resolved), Chest tightness, red flecks in sputum a couple times, Nasal Congestion, Rhinorrhea, diarrhea Negative symptoms: Shortness of breath, Chest pain, Fever, Chills, Body Aches, Vomiting, OTC: Mucinex DM, inhaler PAST MEDICAL HISTORY Diagnosis Date Abdominal pain, right upper quadrant Acute gastritis without mention of hemorrhage Acute, but ill-defined, cerebrovascular disease 02/2007 ASTHMA UNSPECIFIED 08/15/2006 Atrial fibrillation (HCC) 11/24/2009 Chest pain, unspecified CHRONIC AIRWAY OBSTRUCTION NEC 08/15/2006 CORONARY ATHEROSCLER UNSPEC VESSEL 03/25/2005 Coronary atherosclerosis of [place] coronary artery CVA (cerebral vascular accident) ([facility]) 1999 DDD (degenerative disc disease), lumbar 07/18/2013 Dr. Gates, [facility]. Dr. Mondragon. Pain Management. Depression 06/09/2011 Diaphragmatic hernia without mention of obstruction or gangrene Diaphragmatic hernia without mention of obstruction or gangrene External hemorrhoids without mention of complication Flatulence, eructation, and gas pain Hypertrophy of prostate with urinary obstruction and other lower urinary tract symptoms (LUTS) Impaired fasting glucose 10/17/2015 Incisional hernia without mention of obstruction or gangrene 11/22 Legal blindness, as defined in [place] Reflux esophagitis Thrombocytopenia (HCC) 09/26/2014 Transient cerebral ischemia 12/09/2017 Unspecified constipation Unspecified hyperplasia of prostate with urinary obstruction and other lower urinary tract symptoms (LUTS) 08/15/2006 MEDICATIONS: Current Outpatient Medications Medication Sig albuterol HFA (PROVENTIL HFA) 90 mcg/actuation inhaler Inhale 2 Puffs as instructed every 4 hours as needed for wheezing/shortness of breath. BREO ELLIPTA 100-25 mcg/dose inhaler USE 1 INHALATION ORALLY ONCE DAILY INSTRUCTED tamsulosin (FLOMAX) 0.4 mg Take 1 capsule by mouth every evening. aspirin, enteric coated (ASPIRIN, ENTERIC COATED) 81 mg EC tablet Take 1 tablet by mouth once daily. apixaban (ELIQUIS) 5 mg tab(s) Take by mouth twice daily. nitroglycerin sublingual (NITROQUICK) 0.4 mg SL tablet Dissolve 1 tablet under the tongue every 5 minutes as needed for chest pain. furosemide (LASIX) 40 mg tablet Take 40 mg by mouth once daily. isosorbide mononitrate ER (IMDUR) 30 mg 24 hr tablet Take 30 mg by mouth once daily. atorvastatin (LIPITOR) 80 mg tablet Take 80 mg by mouth daily at bedtime. sotalol 120 mg ORAL tablet Take 1 tablet by mouth twice daily. No current facility-administered medications for this visit. ALLERGIES: ALLERGIES Allergen Reactions Keith Inhibitors Cough Lyrica [Pregabalin] Mental Status Change Causes depression Percocet [Oxycodone* Mental Status Change VITALS: BP 118/72 Pulse 74 Temp 36.4 ?C (97.6 ?F) Resp 16 Wt 85.7 kg (189 lb) SpO2 95% BMI 31.94 kg/m? PHYSICAL EXAM: GEN: mildly ill appearing HEENT: PERRL, EOMI, conjunctiva lightly injected Ears: canals clear. TMs without erythema, bulge, or effusion Sinuses: non-tender frontal sinus, non-tender maxillary sinuses Throat: moist mucous membranes, mild erythema, no exudate Neck: supple, no thyromegaly, no lymphadenopathy HEART: regular rate and rhythm, no murmurs LUNGS: clear to auscultation, no wheezes or crackles, no increased WOB ASSESSMENT/PLAN: 1. Acute cough - ICD9: 786.2, ICD10: R05.1 (primary diagnosis) - XR CHEST 2V FRONTAL/LAT - negative. - suspect viral URI, differential includes COVID-19. - Discussed supportive care treatment with rest, cough and cold medicine, and analgesia. - Red flags to seek further treatment include chest pain, shortness of breath, and lethargy; in the ER if severe. - COVID NAAT, UPPER RESPIRATORY, ROUTINE - BENZONATATE 100 MG CAPSULE 2. Hemoptysis - ICD9: 786.30, ICD10: R04.2 Probably benign irritation from bronchitis with harsh cough and anticoagulation. - XR CHEST 2V FRONTAL/LAT - no masses. Follow up if presists. Barrera Sykes MD [facility] 04-06-2023 Note HNO ID: [id number] Author: Dylon Lubin RN Service: ? Author Type: Registered Nurse Type: Progress Notes Filed: 04/06/2023 5:43 PM Note Text: CD Telephonic Outreach Provider Action/FYI: Routed updates to Dr. Aiden Ku with Pt, he noted has a cold, Pt reports mild Sob with exertion, intermittent productive cough with clear to colored sputum, denies wheezes, denies fever or chill or other symptoms.. Instructed and encouraged Pt to schedule PCP/ SAND ANALYST Appt or Urgent Care for symptom or condition changes. Pt noted he has an 04/15/[address] Villalpando Pulmonology Contacted for: Routine Telephonic Outreach Contact made with patient: Yes Patient identified by name and date of . Discussed care with patient Are you experiencing any new or worsening symptoms you need to talk about today? Yes Based on art editor, the following disposition is advised: No symptoms or symptoms present, not severe. Routed to: No Action Needed ELIA Education Provided this Outreach: No Dylon Lubin RN April 06, 2023 5:24 PM [facility] 04-06-2023 History of Presen t illness Narrative [facility] Telephonic Outreach Provider Action/FYI: Routed updates to Dr. Aiden Ku with Pt, he noted has a cold, Pt reports mild Sob with exertion, intermittent productive cough with clear to colored sputum, denies wheezes, denies fever or chill or other symptoms.. Instructed and encouraged Pt to schedule PCP/ SAND ANALYST Appt or Urgent Care for symptom or condition changes. Pt noted he has an 04/15/[address] Villalpando Pulmonology Contacted for: Routine Telephonic Outreach Contact made with patient: Yes Patient identified by name and date of . Discussed care with patient Are you experiencing any new or worsening symptoms you need to talk about today? Yes Based on art editor, the following disposition is advised: No symptoms or symptoms present, not severe. Routed to: No Action Needed ELIA Education Provided this Outreach: No yDlon Lubin RN April 06, 2023 5:24 PM CDM Telephonic Outreach Provider Action/FYI CDM: COPD Left a message to verify symptom status, Instructed to contact PCP for condition changes and needs. Contacted for: Routine Telephonic Outreach Contact made with patient: No, left message. Dylon Lubin RN April 05, 2023 2:09 PM documented in this encounter [facility] 04-05-2023 Note HNO ID: [id number] Author: Dylon Lubin RN Service: ? Author Type: Registered Nurse Type: Progress Notes Filed: 04/06/2023 5:43 PM Note Text: CDM Telephonic Outreach Provider Action/FYI CDM: COPD Left a message to verify symptom status, Instructed to contact PCP for condition changes and needs. Contacted for: Routine Telephonic Outreach Contact made with patient: No, left message. Dylon Lubin RN April 05, 2023 2:09 PM [facility] 04-05-2023 Note Patient Outreach ([facility] DAMON SWAN ([id number]) 1940 M Date Time Provider Department 04/05/23 [facility]UBIN [facility] During your visit today, we recorded the following information about you: Dylon Lubin RN 04/06/2023 5:43 PM Signed CDM Telephonic Outreach Provider Action/FYI CDM: COPD Left a message to verify symptom status, Instructed to contact PCP for condition changes and needs. Contacted for: Routine Telephonic Outreach Contact made with patient: No, left message. Dylon Lubin RN April 05, 2023 2:09 PM Dylon Lubin RN 04/06/2023 5:43 PM Signed CDM Telephonic Outreach Provider Action/FYI: Routed updates to Dr. Aiden Ku with Pt, he noted has a cold, Pt reports mild Sob with exertion, intermittent productive cough with clear to colored sputum, denies wheezes, denies fever or chill or other symptoms.. Instructed and encouraged Pt to schedule PCP/ SAND ANALYST Appt or Urgent Care for symptom or condition changes. Pt noted he has an 04/15/[address] Villalpando Pulmonology Contacted for: Routine Telephonic Outreach Contact made with patient: Yes Patient identified by name and date of . Discussed care with patient Are you experiencing any new or worsening symptoms you need to talk about today? Yes Based on art editor, the following disposition is advised: No symptoms or symptoms present, not severe. Routed to: No Action Needed ELIA Education Provided this Outreach: No Dylon Lubin RN April 06, 2023 5:24 PM Allergies As of Date: 04/05/2023 Noted Allergy Reaction KEITH INHIBITORS 01/12/2013 3 - Cough LYRICA (PREGABALIN) 10/03/2014 1 - Mental Status Change Comments: Causes depression PERCOCET (OXYCODONE-ACETAMINOPHEN) 010 1 - Mental Status Change Date Reviewed: 01/10/2023 Reviewed by: Arely Mckenna LPN - Fully Assessed Reason for Visit: Community Monitoring Outreach [Other] Prescriptions as of 04/06/2023 - loratadine (CLARITIN) 10 mg tablet Take 1 tablet by mouth once daily as needed for cold/allergy symptoms. FOR ALLERGY SYMPTOMS - albuterol HFA (PROVENTIL HFA) 90 mcg/actuation inhaler Inhale 2 Puffs as instructed every 4 hours as needed for wheezing/shortness of breath. - BREO ELLIPTA 100-25 mcg/dose inhaler USE 1 INHALATION ORALLY ONCE DAILY INSTRUCTED - tamsulosin (FLOMAX) 0.4 mg Take 1 capsule by mouth every evening. - aspirin, enteric coated (ASPIRIN, ENTERIC COATED) 81 mg EC tablet Take 1 tablet by mouth once daily. - apixaban (ELIQUIS) 5 mg tab(s) Take by mouth twice daily. - nitroglycerin sublingual (NITROQUICK) 0.4 mg SL tablet Dissolve 1 tablet under the tongue every 5 minutes as needed for chest pain. - furosemide (LASIX) 40 mg tablet Take 40 mg by mouth once daily. - isosorbide mononitrate ER (IMDUR) 30 mg 24 hr tablet Take 30 mg by mouth once daily. - atorvastatin (LIPITOR) 80 mg tablet Take 80 mg by mouth daily at bedtime. - sotalol 120 mg ORAL tablet Take 1 tablet by mouth twice daily. Meds Comments as of 01/09/2016: Currently on coumadin - unsure of current dose Pt does not take the Vit b. KB 01/09 Problem List As Of Date 04/05/2023 Noted Resolved Coronary atherosclerosis [I25.10] 03/25/2005 Chest pain, unspecified [R07.9] 10/08/2010 Cough [R05.9] 06/07/2006 10/08/2010 COPD (chronic obstructive pulmonary disease) wi*08/15/2006 MIXED HYPERLIPIDEMIA [E78.2] 08/15/2006 MACULAR DEGENERATION NOS [H35.30] 08/15/2006 Personal history of colonic polyps [Z86.010] 08/15/2006 04/04/2018 Esophageal reflux [K21.9] 08/15/2006 BPH with obstruction/lower urinary tract sympto*08/15/2006 OVERWEIGHT [E66.9] 08/15/2006 03/10/2022 Acute, but ill-defined, cerebrovascular disease*12/29/2006 09/20/2011 Headache [R51] 12/29/2006 03/24/2010 Abdominal Pain, Right Upper Quadrant [R10.11] 05/15/2008 03/24/2010 FLATUL/ERUCTAT/GAS PAIN [R14.3, R14.1, R14.2] 05/15/2008 10/16/2008 SCREENING MAL NEOP-COLON [Z12.11] 05/15/2008 10/16/2008 HYPERGLYCEMIA [R79.89] 10/16/2008 09/25/2012 Atrial fibrillation (HCC) [I48.91] 11/24/2009 Insomnia [G47.00] 11/24/2009 09/25/2012 Depression [F32.A] 06/09/2011 09/25/2012 Actinic Keratosis: Premalignant [place] [L57.0] 11/18/2011 10/03/2014 Skin tag [L91.8] 11/18/2011 09/25/2012 Intradermal nevus [D23.9] 11/18/2011 09/25/2012 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 [facility] 03-07-2023 Note HNO ID: [id number] Author: Dylon Lubin RN Service: ? Author Type: Registered Nurse Type: Progress Notes Filed: 03/07/2023 4:51 PM Note Text: CDM Telephonic Outreach Provider Action/FYI CDM: COPD Spk with Pt's spouse Ica she denies Damon has any new or worsening symptoms or needs. Contacted for: Routine Telephonic Outreach Contact made with patient: Yes Patient identified by name and date of . Discussed care with spouse Are you experiencing any new or worsening symptoms you need to talk about today? No Disease Specific Do you check your blood pressure at home? Yes, Enter readings: Not available Do you have new or worsening shortness of breath with activity? No Do you have new or worsening cough? No Do you have new or worsening wheezing? No Do you need to use your rescue (Albuterol) inhaler or nebulizer more often than normal? No Based on art editor, the following disposition is advised: No symptoms or symptoms present, not severe. Routed to: No Action Needed ELIA Education Provided this Outreach: No Dylon Lubin RN March 07, 2023 4:33 PM [facility] 03-07-2023 History of Presen t illness Narrative CDM Telephonic Outreach Provider Action/KALA CDM: COPD Spk with Pt's spouse Ica she denies Damon has any new or worsening symptoms or needs. Contacted for: Routine Telephonic Outreach Contact made with patient: Yes Patient identified by name and date of . Discussed care with spouse Are you experiencing any new or worsening symptoms you need to talk about today? No Disease Specific Do you check your blood pressure at home? Yes, Enter readings: Not available Do you have new or worsening shortness of breath with activity? No Do you have new or worsening cough? No Do you have new or worsening wheezing? No Do you need to use your rescue (Albuterol) inhaler or nebulizer more often than normal? No Based on art editor, the following disposition is advised: No symptoms or symptoms present, not severe. Routed to: No Action Needed ELIA Education Provided this Outreach: No Dylon Lubin RN March 07, 2023 4:33 PM documented in this encounter [facility] 03-07-2023 Note Patient Outreach ([facility] DAMON SWAN ([id number]) 1940 M Date Time Provider Department 03/07/23 DYLON LUBINAnna During your visit today, we recorded the following information about you: Dylon Lubin, RN 03/07/2023 4:51 PM Signed CDM Telephonic Outreach Provider Action/FYI CDM: COPD Spk with Pt's spouse Ica she denies Damon has any new or worsening symptoms or needs. Contacted for: Routine Telephonic Outreach Contact made with patient: Yes Patient identified by name and date of . Discussed care with spouse Are you experiencing any new or worsening symptoms you need to talk about today? No Disease Specific Do you check your blood pressure at home? Yes, Enter readings: Not available Do you have new or worsening shortness of breath with activity? No Do you have new or worsening cough? No Do you have new or worsening wheezing? No Do you need to use your rescue (Albuterol) inhaler or nebulizer more often than normal? No Based on art editor, the following disposition is advised: No symptoms or symptoms present, not severe. Routed to: No Action Needed ELIA Education Provided this Outreach: No Dylon Lubin RN March 07, 2023 4:33 PM Allergies As of Date: 03/07/2023 Noted Allergy Reaction KEITH INHIBITORS 01/12/2013 3 - Cough LYRICA (PREGABALIN) 10/03/2014 1 - Mental Status Change Comments: Causes depression PERCOCET (OXYCODONE-ACETAMINOPHEN) 010 1 - Mental Status Change Date Reviewed: 01/10/2023 Reviewed by: Arely Mckenna LPN - Fully Assessed Reason for Visit: Community Monitoring Outreach [Other] Prescriptions as of 03/07/2023 - loratadine (CLARITIN) 10 mg tablet Take 1 tablet by mouth once daily as needed for cold/allergy symptoms. FOR ALLERGY SYMPTOMS - albuterol HFA (PROVENTIL HFA) 90 mcg/actuation inhaler Inhale 2 Puffs as instructed every 4 hours as needed for wheezing/shortness of breath. - BREO ELLIPTA 100-25 mcg/dose inhaler USE 1 INHALATION ORALLY ONCE DAILY INSTRUCTED - tamsulosin (FLOMAX) 0.4 mg Take 1 capsule by mouth every evening. - aspirin, enteric coated (ASPIRIN, ENTERIC COATED) 81 mg EC tablet Take 1 tablet by mouth once daily. - apixaban (ELIQUIS) 5 mg tab(s) Take by mouth twice daily. - nitroglycerin sublingual (NITROQUICK) 0.4 mg SL tablet Dissolve 1 tablet under the tongue every 5 minutes as needed for chest pain. - furosemide (LASIX) 40 mg tablet Take 40 mg by mouth once daily. - isosorbide mononitrate ER (IMDUR) 30 mg 24 hr tablet Take 30 mg by mouth once daily. - atorvastatin (LIPITOR) 80 mg tablet Take 80 mg by mouth daily at bedtime. - sotalol 120 mg ORAL tablet Take 1 tablet by mouth twice daily. Meds Comments as of 01/09/2016: Currently on coumadin - unsure of current dose Pt does not take the Vit b. KB 01/09 Problem List As Of Date 03/07/2023 Noted Resolved Coronary atherosclerosis [I25.10] 03/25/2005 Chest pain, unspecified [R07.9] 10/08/2010 Cough [R05.9] 06/07/2006 10/08/2010 COPD (chronic obstructive pulmonary disease) wi*08/15/2006 MIXED HYPERLIPIDEMIA [E78.2] 08/15/2006 MACULAR DEGENERATION NOS [H35.30] 08/15/2006 Personal history of colonic polyps [Z86.010] 08/15/2006 04/04/2018 Esophageal reflux [K21.9] 08/15/2006 BPH with obstruction/lower urinary tract sympto*08/15/2006 OVERWEIGHT [E66.9] 08/15/2006 03/10/2022 Acute, but ill-defined, cerebrovascular disease*12/29/2006 09/20/2011 Headache [R51] 12/29/2006 03/24/2010 Abdominal Pain, Right Upper Quadrant [R10.11] 05/15/2008 03/24/2010 FLATUL/ERUCTAT/GAS PAIN [R14.3, R14.1, R14.2] 05/15/2008 10/16/2008 SCREENING MAL NEOP-COLON [Z12.11] 05/15/2008 10/16/2008 HYPERGLYCEMIA [R79.89] 10/16/2008 09/25/2012 Atrial fibrillation (HCC) [I48.91] 11/24/2009 Insomnia [G47.00] 11/24/2009 09/25/2012 Depression [F32.A] 06/09/2011 09/25/2012 Actinic Keratosis: Premalignant AK [L57.0] 11/18/2011 10/03/2014 Skin tag [L91.8] 11/18/2011 09/25/2012 Intradermal nevus [D23.9] 11/18/2011 09/25/2012 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] 11/18/2011 09/25/2012 Actinic skin damage [L57.8] 11/18/2011 09/25/2012 Solar lentigo [L81.4] 11/18/2011 09/25/2012 Rhinitis [J31.0] 09/25/2012 Hyponatremia [E87.1] 09/28/2012 10/03/2014 Irritated//Inflamed Seborrheic Keratosis [L82.0]02/13/2014 10/03/2014 Pigmented Lentiginous Neoplasm Uncertain Behavi*02/13/2014 04/02/2017 Solar lentigo [L81.4] 02/13/2014 04/02/2017 Actinic skin damage [L57.8] 02/13/2014 Melanocytic nevus of trunk [D22.5] 02/13/2014 04/02/2017 Thrombocytopenia (HCC) [D69.6] 09/26/2014 DDD (degenerative disc disease), lumbar [M51.36]07/18/2013 Edema of both legs [R60.0] 10/03/2014 Insomnia [G47.00] 10/03/2014 Orthostatic dizziness [R42] 04/02/2017 09/28/2017 Transient cerebral ischemia [G45.9] 12/09/2017 04/04/2018 Essential hypertension [I10] 12/26/2019 Impaired fasting g (more content not included)... [facility] 02-03-2023 Note HNO ID: [id number] Author: Dylon Lubin RN Service: ? Author Type: Registered Nurse Type: Progress Notes Filed: 02/03/2023 2:25 PM Note Text: CDM Telephonic Outreach Provider Action/FYI CDM: COPD 2nd Call, left a message, Instructed to call PCP with any symptom or condition changes. Contacted for: Routine Telephonic Outreach Contact made with patient: No, left message. Dylon Lubin RN February 03, 2023 2:23 PM [facility] 02-01-2023 Note HNO ID: [id number] Author: Dylon Lubin RN Service: ? Author Type: Registered Nurse Type: Progress Notes Filed: 02/03/2023 2:25 PM Note Text: CDM Telephonic Outreach Provider Action/FYI CDM: COPD Left a message, Instructed to call PCP with any symptom or condition changes. Contacted for: Routine Telephonic Outreach Contact made with patient: No, left message. Dylon Lubin RN February 01, 2023 3:33 PM [facility] 02-01-2023 Note Patient Outreach (AM [facility]) DAMON SWAN ([id number]) 1940 M Date Time Provider Department 02/01/23 DYLON LUBIN [facility] [place] During your visit today, we recorded the following information about you: Dylon Lubin RN 02/03/2023 2:25 PM Signed CDM Telephonic Outreach Provider Action/FYI CDM: COPD Left a message, Instructed to call PCP with any symptom or condition changes. Contacted for: Routine Telephonic Outreach Contact made with patient: No, left message. Dylon Lubin RN February 01, 2023 3:33 PM Dylon Lubin RN 02/03/2023 2:25 PM Signed CDM Telephonic Outreach Provider Action/FYI CDM: COPD 2nd Call, left a message, Instructed to call PCP with any symptom or condition changes. Contacted for: Routine Telephonic Outreach Contact made with patient: No, left message. Dylon Lubin RN February 03, 2023 2:23 PM Allergies As of Date: 02/01/2023 Noted Allergy Reaction KEITH INHIBITORS 01/12/2013 3 - Cough LYRICA (PREGABALIN) 10/03/2014 1 - Mental Status Change Comments: Causes depression PERCOCET (OXYCODONE-ACETAMINOPHEN) 010 1 - Mental Status Change Date Reviewed: 01/10/2023 Reviewed by: Arely Mckenna LPN - Fully Assessed Reason for Visit: Community Monitoring Outreach [Other] Prescriptions as of 02/03/2023 - loratadine (CLARITIN) 10 mg tablet Take 1 tablet by mouth once daily as needed for cold/allergy symptoms. FOR ALLERGY SYMPTOMS - albuterol HFA (PROVENTIL HFA) 90 mcg/actuation inhaler Inhale 2 Puffs as instructed every 4 hours as needed for wheezing/shortness of breath. - BREO ELLIPTA 100-25 mcg/dose inhaler USE 1 INHALATION ORALLY ONCE DAILY INSTRUCTED - tamsulosin (FLOMAX) 0.4 mg Take 1 capsule by mouth every evening. - aspirin, enteric coated (ASPIRIN, ENTERIC COATED) 81 mg EC tablet Take 1 tablet by mouth once daily. - apixaban (ELIQUIS) 5 mg tab(s) Take by mouth twice daily. - nitroglycerin sublingual (NITROQUICK) 0.4 mg SL tablet Dissolve 1 tablet under the tongue every 5 minutes as needed for chest pain. - furosemide (LASIX) 40 mg tablet Take 40 mg by mouth once daily. - isosorbide mononitrate ER (IMDUR) 30 mg 24 hr tablet Take 30 mg by mouth once daily. - atorvastatin (LIPITOR) 80 mg tablet Take 80 mg by mouth daily at bedtime. - sotalol 120 mg ORAL tablet Take 1 tablet by mouth twice daily. Meds Comments as of 01/09/2016: Currently on coumadin - unsure of current dose Pt does not take the Vit b. KB 01/09 Problem List As Of Date 02/01/2023 Noted Resolved Coronary atherosclerosis [I25.10] 03/25/2005 Chest pain, unspecified [R07.9] 10/08/2010 Cough [R05.9] 06/07/2006 10/08/2010 COPD (chronic obstructive pulmonary disease) wi*08/15/2006 MIXED HYPERLIPIDEMIA [E78.2] 08/15/2006 MACULAR DEGENERATION NOS [H35.30] 08/15/2006 Personal history of colonic polyps [Z86.010] 08/15/2006 04/04/2018 Esophageal reflux [K21.9] 08/15/2006 BPH with obstruction/lower urinary tract sympto*08/15/2006 OVERWEIGHT [E66.9] 08/15/2006 03/10/2022 Acute, but ill-defined, cerebrovascular disease*12/29/2006 09/20/2011 Headache [R51] 12/29/2006 03/24/2010 Abdominal Pain, Right Upper Quadrant [R10.11] 05/15/2008 03/24/2010 FLATUL/ERUCTAT/GAS PAIN [R14.3, R14.1, R14.2] 05/15/2008 10/16/2008 SCREENING MAL NEOP-COLON [Z12.11] 05/15/2008 10/16/2008 HYPERGLYCEMIA [R79.89] 10/16/2008 09/25/2012 Atrial fibrillation (HCC) [I48.91] 11/24/2009 Insomnia [G47.00] 11/24/2009 09/25/2012 Depression [F32.A] 06/09/2011 09/25/2012 Actinic Keratosis: Premalignant AK [L57.0] 11/18/2011 10/03/2014 Skin tag [L91.8] 11/18/2011 09/25/2012 Intradermal nevus [D23.9] 11/18/2011 09/25/2012 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] 11/18/2011 09/25/2012 Actinic skin damage [L57.8] 11/18/2011 09/25/2012 Solar lentigo [L81.4] 11/18/2011 09/25/2012 Rhinitis [J31.0] 09/25/2012 Hyponatremia [E87.1] 09/28/2012 10/03/2014 Irritated//Inflamed Seborrheic Keratosis [L82.0]02/13/2014 10/03/2014 Pigmented Lentiginous Neoplasm Uncertain Behavi*02/13/2014 04/02/2017 Solar lentigo [L81.4] 02/13/2014 04/02/2017 Actinic skin damage [L57.8] 02/13/2014 Melanocytic nevus of trunk [D22.5] 02/13/2014 04/02/2017 Thrombocytopenia (HCC) [D69.6] 09/26/2014 DDD (degenerative disc disease), lumbar [M51.36]07/18/2013 Edema of both legs [R60.0] 10/03/2014 Insomnia [G47.00] 10/03/2014 Orthostatic dizziness [R42] 04/02/2017 09/28/2017 Transient cerebral ischemia [G45.9] 12/09/2017 04/04/2018 Essential hypertension [I10] 12/26/2019 Impaired fasting glucose [R73.01] 10/17/2015 Obesity, Class I, BMI 30-34.9 [E66.9] 11/04/2020 Adenomatous polyp of transverse colon [D12.3] 07/28/2022 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 [facility] 01-10-2023 Note HNO ID: [id number] Author: Jose Wolfe MD Service: ? Author Type: Physician Type: Progress Notes Filed: 01/10/2023 3:33 PM Note Text: This note was created using NoteWriter. Subjective Damon Swan is a 82 year old male here with acute urinary frequency and urge incontinence for 4 days. He started taking Azo with temporary relief. He did not feel ill. He gave a history of facial flushing only with alcohol noted recently, regardless of alcohol beverage consumed. Review of Systems Constitutional: Negative for chills and fever. Gastrointestinal: Negative for abdominal pain, nausea and vomiting. Genitourinary: Negative for difficulty urinating, dysuria and flank pain. Skin: See HPI. ACTIVE PROBLEM LIST Coronary Atherosclerosis Copd (Chronic Obstructive Pulmonary Disease) With Chronic Bronchitis (Hcc) Mixed Hyperlipidemia Macular Degeneration (Senile) of Retina, Unspecified Esophageal Reflux Bph With Obstruction/Lower Urinary Tract Symptoms Atrial Fibrillation (Hcc) Rhinitis Actinic Skin Damage Thrombocytopenia (Hcc) Ddd (Degenerative Disc Disease), Lumbar Edema of Both Legs Insomnia Essential Hypertension Impaired Fasting Glucose Obesity, Class I, Bmi 30-34.9 Adenomatous Polyp of Transverse Colon Gave (Gastric Antral Vascular Ectasia) Acute Upper GI Bleed Generalized Weakness Radiculopathy, Cervical Region Occlusion and Stenosis of Bilateral Carotid Arteries Syncope Anticoagulated Current Outpatient Medications Medication Sig BREO ELLIPTA 100-25 mcg/dose inhaler USE 1 INHALATION ORALLY ONCE DAILY INSTRUCTED tamsulosin (FLOMAX) 0.4 mg Take 1 capsule by mouth every evening. aspirin, enteric coated (ASPIRIN, ENTERIC COATED) 81 mg EC tablet Take 1 tablet by mouth once daily. apixaban (ELIQUIS) 5 mg tab(s) Take by mouth twice daily. nitroglycerin sublingual (NITROQUICK) 0.4 mg SL tablet Dissolve 1 tablet under the tongue every 5 minutes as needed for chest pain. furosemide (LASIX) 40 mg tablet Take 40 mg by mouth once daily. isosorbide mononitrate ER (IMDUR) 30 mg 24 hr tablet Take 30 mg by mouth once daily. atorvastatin (LIPITOR) 80 mg tablet Take 80 mg by mouth daily at bedtime. sotalol 120 mg ORAL tablet Take 1 tablet by mouth twice daily. loratadine (CLARITIN) 10 mg tablet Take 1 tablet by mouth once daily as needed for cold/allergy symptoms. FOR ALLERGY SYMPTOMS albuterol HFA (PROVENTIL HFA) 90 mcg/actuation inhaler Inhale 2 Puffs as instructed every 4 hours as needed for wheezing/shortness of breath. No current facility-administered medications for this visit. Objective BP 124/66 (BP Site: Left Arm, BP Position: Sitting, BP Cuff Size: Large Adult) Pulse 64 Resp 16 Wt 86.6 kg (191 lb) BMI 32.28 kg/m? Physical Exam Constitutional: General: He is not in acute distress. Appearance: He is not ill-appearing or diaphoretic. Pulmonary: Effort: Pulmonary effort is normal. Abdominal: Palpations: Abdomen is soft. Tenderness: There is no abdominal tenderness. There is no right CVA tenderness or left CVA tenderness. Skin: General: Skin is dry. Neurological: Mental Status: He is alert. Component Latest Ref Rng AND Units 01/10/2023 GLUCOSE UA (POCT) Negative mg/dL Negative BILIRUBIN UA (POCT) Negative Negative KETONE UA (POCT) Negative mg/dL Negative SPECIFIC GRAVITY UA (POCT) 1.005 - 1.030 1.015 HEMOGLOBIN/BLOOD UA (POCT) Negative Small (A) PH UA (POCT) 4.5 - 8.0 6.5 PROTEIN UA (POCT) Negative mg/dL 30 (A) UROBILINOGEN UA (POCT) Normal E.U./dL 2.0 (A) NITRITE UA (POCT) Negative Positive (A) LEUKOCYTES UA (POCT) Negative Moderate (A) COLOR UA (POCT) Yellow CLARITY UA (POCT) Clear Assessment and Plan 1. Acute cystitis without hematuria - ICD9: 595.0, ICD10: N30.00 (primary diagnosis) Fluids. Cranberry juice. Antibiotic will depend on culture in 2 days. However, call for illness, fever, chills. - URINE CULTURE 2. Chronic rhinitis - ICD9: 472.0, ICD10: J31.0 Refilled. - LORATADINE 10 MG TABLET 3. COPD with chronic bronchitis (HCC) - ICD9: 491.20, ICD10: J44.9 Refilled. - ALBUTEROL SULFATE HFA 90 MCG/ACTUATION AEROSOL INHALER 4. 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 - ICD9: 782.62, ICD10: R23.2 This was discussed. Avoid alcohol consumption. Jose Wolfe MD [facility] 01-10-2023 History of Presen t illness Narrative This note was created using Ulympixriter. Subjective Damon Swan is a 82 year old male here with acute urinary frequency and urge incontinence for 4 days. He started taking Azo with temporary relief. He did not feel ill. He gave a history of facial flushing only with alcohol noted recently, regardless of alcohol beverage consumed. Review of Systems Constitutional: Negative for chills and fever. Gastrointestinal: Negative for abdominal pain, nausea and vomiting. Genitourinary: Negative for difficulty urinating, dysuria and flank pain. Skin: See HPI. ACTIVE PROBLEM LIST Coronary Atherosclerosis Copd (Chronic Obstructive Pulmonary Disease) With Chronic Bronchitis (Hcc) Mixed Hyperlipidemia Macular Degeneration (Senile) of Retina, Unspecified Esophageal Reflux Bph With Obstruction/Lower Urinary Tract Symptoms Atrial Fibrillation (Hcc) Rhinitis Actinic Skin Damage Thrombocytopenia (Hcc) Ddd (Degenerative Disc Disease), Lumbar Edema of Both Legs Insomnia Essential Hypertension Impaired Fasting Glucose Obesity, Class I, Bmi 30-34.9 Adenomatous Polyp of Transverse Colon Gave (Gastric Antral Vascular Ectasia) Acute Upper GI Bleed Generalized Weakness Radiculopathy, Cervical Region Occlusion and Stenosis of Bilateral Carotid Arteries Syncope Anticoagulated Current Outpatient Medications Medication Sig BREO ELLIPTA 100-25 mcg/dose inhaler USE 1 INHALATION ORALLY ONCE DAILY INSTRUCTED tamsulosin (FLOMAX) 0.4 mg Take 1 capsule by mouth every evening. aspirin, enteric coated (ASPIRIN, ENTERIC COATED) 81 mg EC tablet Take 1 tablet by mouth once daily. apixaban (ELIQUIS) 5 mg tab(s) Take by mouth twice daily. nitroglycerin sublingual (NITROQUICK) 0.4 mg SL tablet Dissolve 1 tablet under the tongue every 5 minutes as needed for chest pain. furosemide (LASIX) 40 mg tablet Take 40 mg by mouth once daily. isosorbide mononitrate ER (IMDUR) 30 mg 24 hr tablet Take 30 mg by mouth once daily. atorvastatin (LIPITOR) 80 mg tablet Take 80 mg by mouth daily at bedtime. sotalol 120 mg ORAL tablet Take 1 tablet by mouth twice daily. loratadine (CLARITIN) 10 mg tablet Take 1 tablet by mouth once daily as needed for cold/allergy symptoms. FOR ALLERGY SYMPTOMS albuterol HFA (PROVENTIL HFA) 90 mcg/actuation inhaler Inhale 2 Puffs as instructed every 4 hours as needed for wheezing/shortness of breath. No current facility-administered medications for this visit. Objective BP 124/66 (BP Site: Left Arm, BP Position: Sitting, BP Cuff Size: Large Adult) Pulse 64 Resp 16 Wt 86.6 kg (191 lb) BMI 32.28 kg/m Physical Exam Constitutional: General: He is not in acute distress. Appearance: He is not ill-appearing or diaphoretic. Pulmonary: Effort: Pulmonary effort is normal. Abdominal: Palpations: Abdomen is soft. Tenderness: There is no abdominal tenderness. There is no right CVA tenderness or left CVA tenderness. Skin: General: Skin is dry. Neurological: Mental Status: He is alert. Component Latest Ref Rng & Units 01/10/2023 GLUCOSE UA (POCT) Negative mg/dL Negative BILIRUBIN UA (POCT) Negative Negative KETONE UA (POCT) Negative mg/dL Negative SPECIFIC GRAVITY UA (POCT) 1.005 - 1.030 1.015 HEMOGLOBIN/BLOOD UA (POCT) Negative Small (A) PH UA (POCT) 4.5 - 8.0 6.5 PROTEIN UA (POCT) Negative mg/dL 30 (A) UROBILINOGEN UA (POCT) Normal E.U./dL 2.0 (A) NITRITE UA (POCT) Negative Positive (A) LEUKOCYTES UA (POCT) Negative Moderate (A) COLOR UA (POCT) Yellow CLARITY UA (POCT) Clear Assessment and Plan 1. Acute cystitis without hematuria - ICD9: 595.0, ICD10: N30.00 (primary diagnosis) Fluids. Cranberry juice. Antibiotic will depend on culture in 2 days. However, call for illness, fever, chills. - URINE CULTURE 2. Chronic rhinitis - ICD9: 472.0, ICD10: J31.0 Refilled. - LORATADINE 10 MG TABLET 3. COPD with chronic bronchitis (HCC) - ICD9: 491.20, ICD10: J44.9 Refilled. - ALBUTEROL SULFATE HFA 90 MCG/ACTUATION AEROSOL INHALER 4. 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 - ICD9: 782.62, ICD10: R23.2 This was discussed. Avoid alcohol consumption. Jose Wolfe MD documented in this encounter [facility] 12-30-2022 Note HNO ID: [id number] Author: Dylon Lubin RN Service: ? Author Type: Registered Nurse Type: Progress Notes Filed: 12/30/2022 8:11 PM Note Text: CDM Telephonic Outreach Provider Action/FYI CDM: COPD Pt denies new or worsening symptoms, instructed to call PCP with any changes in symptoms, concerns or needs. Pt verbalized understanding, and noted appreciation for the call. Contacted for: Routine Telephonic Outreach Contact made with patient: Yes Patient identified by name and date of . Discussed care with patient Are you experiencing any new or worsening symptoms you need to talk about today? No Disease Specific Do you check your blood pressure at home? Yes, Enter readings: Not taken Do you have new or worsening shortness of breath with activity? No Do you have new or worsening cough? No Do you have new or worsening wheezing? No Do you need to use your rescue (Albuterol) inhaler or nebulizer more often than normal? No Based on art editor, the following disposition is advised: No symptoms or symptoms present, not severe. Routed to: No Action Needed ELIA Education Provided this Outreach: No Dylon Lubin RN December 30, 2022 8:05 PM [facility] 12-30-2022 History of Presen t illness Narrative CDM Telephonic Outreach Provider Action/FYI CDM: COPD Pt denies new or worsening symptoms, instructed to call PCP with any changes in symptoms, concerns or needs. Pt verbalized understanding, and noted appreciation for the call. Contacted for: Routine Telephonic Outreach Contact made with patient: Yes Patient identified by name and date of . Discussed care with patient Are you experiencing any new or worsening symptoms you need to talk about today? No Disease Specific Do you check your blood pressure at home? Yes, Enter readings: Not taken Do you have new or worsening shortness of breath with activity? No Do you have new or worsening cough? No Do you have new or worsening wheezing? No Do you need to use your rescue (Albuterol) inhaler or nebulizer more often than normal? No Based on art editor, the following disposition is advised: No symptoms or symptoms present, not severe. Routed to: No Action Needed ELIA Education Provided this Outreach: No Dylon Lubin RN December 30, 2022 8:05 PM CDM Telephonic Outreach Provider Action/FYI CDM: COPD Called home number, unable to leave a message to verify symptom status and needs. Contacted for: Routine Telephonic Outreach Contact made with patient: No, unable to leave message. Will reattempt call Dylon Luibn RN December 29, 2022 3:45 PM documented in this encounter [facility] 12-29-2022 Note HNO ID: [id number] Author: Dylon Lubin RN Service: ? Author Type: Registered Nurse Type: Progress Notes Filed: 12/30/2022 8:11 PM Note Text: CDM Telephonic Outreach Provider Action/FYI CDM: COPD Called home number, unable to leave a message to verify symptom status and needs. Contacted for: Routine Telephonic Outreach Contact made with patient: No, unable to leave message. Will reattempt call Dylon Lubin RN December 29, 2022 3:45 PM [facility] 12-29-2022 Note Patient Outreach (AM [facility]) DAMON SWAN ([id number]) 1940 M Date Time Provider Department 12/29/22 DYLON LUBIN During your visit today, we recorded the following information about you: Dylon Lubin RN 12/30/2022 8:11 PM Signed CDM Telephonic Outreach Provider Action/FYI CDM: COPD Called home number, unable to leave a message to verify symptom status and needs. Contacted for: Routine Telephonic Outreach Contact made with patient: No, unable to leave message. Will reattempt call Dylon Lbuin RN December 29, 2022 3:45 PM Dylon Lubin RN 12/30/2022 8:11 PM Signed CDM Telephonic Outreach Provider Action/FYI CDM: COPD Pt denies new or worsening symptoms, instructed to call PCP with any changes in symptoms, concerns or needs. Pt verbalized understanding, and noted appreciation for the call. Contacted for: Routine Telephonic Outreach Contact made with patient: Yes Patient identified by name and date of . Discussed care with patient Are you experiencing any new or worsening symptoms you need to talk about today? No Disease Specific Do you check your blood pressure at home? Yes, Enter readings: Not taken Do you have new or worsening shortness of breath with activity? No Do you have new or worsening cough? No Do you have new or worsening wheezing? No Do you need to use your rescue (Albuterol) inhaler or nebulizer more often than normal? No Based on art editor, the following disposition is advised: No symptoms or symptoms present, not severe. Routed to: No Action Needed ELIA Education Provided this Outreach: No Dylon Lubin RN December 30, 2022 8:05 PM Allergies As of Date: 12/29/2022 Noted Allergy Reaction KEITH INHIBITORS 01/12/2013 3 - Cough LYRICA (PREGABALIN) 10/03/2014 1 - Mental Status Change Comments: Causes depression PERCOCET (OXYCODONE-ACETAMINOPHEN) 010 1 - Mental Status Change Date Reviewed: 11/22/2022 Reviewed by: Sun Gan APRN.SAND ANALYST - Fully Assessed Reason for Visit: Community Monitoring Outreach [Other] Prescriptions as of 12/30/2022 - BREO ELLIPTA 100-25 mcg/dose inhaler USE 1 INHALATION ORALLY ONCE DAILY INSTRUCTED - tamsulosin (FLOMAX) 0.4 mg Take 1 capsule by mouth every evening. - loratadine (CLARITIN) 10 mg tablet Take 1 tablet by mouth once daily as needed for cold/allergy symptoms. FOR ALLERGY SYMPTOMS - aspirin, enteric coated (ASPIRIN, ENTERIC COATED) 81 mg EC tablet Take 1 tablet by mouth once daily. - apixaban (ELIQUIS) 5 mg tab(s) Take by mouth twice daily. - albuterol HFA (PROVENTIL HFA) 90 mcg/actuation inhaler Inhale 2 Puffs as instructed every 4 hours as needed for wheezing/shortness of breath. - nitroglycerin sublingual (NITROQUICK) 0.4 mg SL tablet Dissolve 1 tablet under the tongue every 5 minutes as needed for chest pain. - furosemide (LASIX) 40 mg tablet Take 40 mg by mouth once daily. - isosorbide mononitrate ER (IMDUR) 30 mg 24 hr tablet Take 30 mg by mouth once daily. - atorvastatin (LIPITOR) 80 mg tablet Take 80 mg by mouth daily at bedtime. - sotalol 120 mg ORAL tablet Take 1 tablet by mouth twice daily. Meds Comments as of 01/09/2016: Currently on coumadin - unsure of current dose Pt does not take the Vit b. KB 01/09 Problem List As Of Date 12/29/2022 Noted Resolved Coronary atherosclerosis [I25.10] 03/25/2005 Chest pain, unspecified [R07.9] 10/08/2010 Cough [R05.9] 06/07/2006 10/08/2010 COPD (chronic obstructive pulmonary disease) wi*08/15/2006 MIXED HYPERLIPIDEMIA [E78.2] 08/15/2006 MACULAR DEGENERATION NOS [H35.30] 08/15/2006 Personal history of colonic polyps [Z86.010] 08/15/2006 04/04/2018 Esophageal reflux [K21.9] 08/15/2006 BPH with obstruction/lower urinary tract sympto*08/15/2006 OVERWEIGHT [E66.9] 08/15/2006 03/10/2022 Acute, but ill-defined, cerebrovascular disease*12/29/2006 09/20/2011 Headache [R51] 12/29/2006 03/24/2010 Abdominal Pain, Right Upper Quadrant [R10.11] 05/15/2008 03/24/2010 FLATUL/ERUCTAT/GAS PAIN [R14.3, R14.1, R14.2] 05/15/2008 10/16/2008 SCREENING MAL NEOP-COLON [Z12.11] 05/15/2008 10/16/2008 HYPERGLYCEMIA [R79.89] 10/16/2008 09/25/2012 Atrial fibrillation (HCC) [I48.91] 11/24/2009 Insomnia [G47.00] 11/24/2009 09/25/2012 Depression [F32.A] 06/09/2011 09/25/2012 Actinic Keratosis: Premalignant AK [L57.0] 11/18/2011 10/03/2014 Skin tag [L91.8] 11/18/2011 09/25/2012 Intradermal nevus [D23.9] 11/18/2011 09/25/2012 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 [facility] 12-06-2022 Note HNO ID: [id number] Author: Dylon Lubin RN Service: ? Author Type: Registered Nurse Type: Progress Notes Filed: 12/06/2022 5:23 PM Note Text: CDM Telephonic Outreach Provider Action/FYI: Routed updates to Dr. Wolfe CDM: COPD Spk with Marilee she noted Damon has sciatic type nerve pain in his leg, he is seeing a Chiropractor this week, instructed to schedule with PCP/ SAND ANALYST for pain, Ica noted if the treatment does not help, he will schedule an appt with PCP . Denies other symptom concerns or needs. Contacted for: Routine Telephonic Outreach Contact made with patient: Yes Patient identified by name and date of . Discussed care with spouse Are you experiencing any new or worsening symptoms you need to talk about today? Yes Based on art editor, the following disposition is advised: No symptoms or symptoms present, not severe. Routed to: No Action Needed ELIA Education Provided this Outreach: No Dylon Lubin RN December 06, 2022 5:20 PM [facility] 12-03-2022 Note HNO ID: [id number] Author: Dylon Lubin RN Service: ? Author Type: Registered Nurse Type: Progress Notes Filed: 12/06/2022 5:23 PM Note Text: CDM Telephonic Outreach Provider Action/FYI CDM: COPD Called Pt left a message to verify symptom status and needs. Instructed to call PCP with any symptom or condition changes. Contacted for: Routine Telephonic Outreach Contact made with patient: No, left message. Dylon Lubin RN December 03, 2022 1:51 PM [facility] 12-03-2022 Note Patient Outreach (AM [facility]) DAMON SWAN ([id number]) 1940 M Date Time Provider Department 12/03/22 DYLON LUBIN During your visit today, we recorded the following information about you: Dylon Lubin RN 12/06/2022 5:23 PM Signed CDM Telephonic Outreach Provider Action/FYI CDM: COPD Called Pt left a message to verify symptom status and needs. Instructed to call PCP with any symptom or condition changes. Contacted for: Routine Telephonic Outreach Contact made with patient: No, left message. Dylon Lubin RN December 03, 2022 1:51 PM Dylon Lubin RN 12/06/2022 5:23 PM Signed CDM Telephonic Outreach Provider Action/FYI: Routed updates to Dr. Wolfe CDM: COPD Spk with Ica she noted Damon has sciatic type nerve pain in his leg, he is seeing a Chiropractor this week, instructed to schedule with PCP/ SAND ANALYST for pain, Ica noted if the treatment does not help, he will schedule an appt with PCP . Denies other symptom concerns or needs. Contacted for: Routine Telephonic Outreach Contact made with patient: Yes Patient identified by name and date of . Discussed care with spouse Are you experiencing any new or worsening symptoms you need to talk about today? Yes Based on art editor, the following disposition is advised: No symptoms or symptoms present, not severe. Routed to: No Action Needed ELIA Education Provided this Outreach: No Dylon Lubin RN December 06, 2022 5:20 PM Allergies As of Date: 12/03/2022 Noted Allergy Reaction KEITH INHIBITORS 01/12/2013 3 - Cough LYRICA (PREGABALIN) 10/03/2014 1 - Mental Status Change Comments: Causes depression PERCOCET (OXYCODONE-ACETAMINOPHEN) 010 1 - Mental Status Change Date Reviewed: 11/22/2022 Reviewed by: Sun Gna APRN.SAND ANALYST - Fully Assessed Reason for Visit: Community Monitoring Outresach [Other] Prescriptions as of 12/06/2022 - BREO ELLIPTA 100-25 mcg/dose inhaler USE 1 INHALATION ORALLY ONCE DAILY INSTRUCTED - tamsulosin (FLOMAX) 0.4 mg Take 1 capsule by mouth every evening. - loratadine (CLARITIN) 10 mg tablet Take 1 tablet by mouth once daily as needed for cold/allergy symptoms. FOR ALLERGY SYMPTOMS - aspirin, enteric coated (ASPIRIN, ENTERIC COATED) 81 mg EC tablet Take 1 tablet by mouth once daily. - apixaban (ELIQUIS) 5 mg tab(s) Take by mouth twice daily. - albuterol HFA (PROVENTIL HFA) 90 mcg/actuation inhaler Inhale 2 Puffs as instructed every 4 hours as needed for wheezing/shortness of breath. - nitroglycerin sublingual (NITROQUICK) 0.4 mg SL tablet Dissolve 1 tablet under the tongue every 5 minutes as needed for chest pain. - furosemide (LASIX) 40 mg tablet Take 40 mg by mouth once daily. - isosorbide mononitrate ER (IMDUR) 30 mg 24 hr tablet Take 30 mg by mouth once daily. - atorvastatin (LIPITOR) 80 mg tablet Take 80 mg by mouth daily at bedtime. - sotalol 120 mg ORAL tablet Take 1 tablet by mouth twice daily. Meds Comments as of 01/09/2016: Currently on coumadin - unsure of current dose Pt does not take the Vit b. 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 OVERWEIGHT [E66.9] 08/15/2006 03/10/2022 Acute, but ill-defined, cerebrovascular disease*12/29/2006 09/20/2011 Headache [R51] 12/29/2006 03/24/2010 Abdominal Pain, Right Upper Quadrant [R10.11] 05/15/2008 03/24/2010 FLATUL/ERUCTAT/GAS PAIN [R14.3, R14.1, R14.2] 05/15/2008 10/16/2008 SCREENING MAL NEOP-COLON [Z12.11] 05/15/2008 10/16/2008 HYPERGLYCEMIA [R79.89] 10/16/2008 09/25/2012 Atrial fibrillation (HCC) [I48.91] 11/24/2009 Insomnia [G47.00] 11/24/2009 09/25/2012 Depression [F32.A] 06/09/2011 09/25/2012 Actinic Keratosis: Premalignant AK [L57.0] 11/18/2011 10/03/2014 Skin tag [L91.8] 11/18/2011 09/25/2012 Intradermal nevus [D23.9] 11/18/2011 09/25/2012 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 [facility] 11-22-2022 Note HNO ID: [id number] Author: Sun Gan APRN.CNP Service: ? Author Type: Nurse Practitioner Type: Progress Notes Filed: 11/22/2022 12:09 PM Note Text: Damon Swan is a 82 year old male here for a Medicare Subsequent Annual Wellness Visit Health Risk Assessment In general, health is: Good Concerns with balance:Several days Concerns with teeth or dentures:Not at all Concerns with sexual function:Not at all Floyd anxious, stressed, angry, irritable, lonely, isolated, or had thoughts of hurting themself: insomnia Has little interest or pleasure in doing things: Not at all Bothered by feeling down, depressed, or hopeless: Not at all Needs help with grocery shopping, cooking, housework, bathing, grooming, dressing, eating, sitting or standing, walking, using the toilet, handling finances, taking medications, using the telephone, or driving: No except does not drive due to being legally blind Following safety precautions in the home environment and vehicle: removed throw rugs from floors, installed grab bars in the bathroom, handrails in stairwells, having adequate lighting, wearing seatbelt at all times?: Yes Smokes cigarettes, vapes, or chew tobacco: No Eats healthy foods including fruits, vegetables, whole grains, and fiber-rich foods: Several days Number of days per week engages in exercise: sedentary Average alcohol consumption: 2 beers a night Current Providers Specialists: I have reviewed specialist-related care of the patient in the medical record. Current care team: Patient Care Team: Jose Wolfe MD as PCP - General (Internal Medicine) Outside specialists seen: air conditioning installer supervisor- Dr. Jasso Wrist Hemmer- RICHARD Ivan, flask carrier- Dr. Lazaro Medical/Family history review Reviewed and updated problem list, medical/surgical/family/social history, medications, and allergies. Opioid use review Patient is not currently using opioids. Depression screening Depression Screening PHQ-2 Score 11/22/2022 0 Depression screening tool completed and reviewed. Based on score and interview, patient is not at risk for depression. Screening tool discussed with patient, and I recommended no further intervention at this time. Cognitive screening Mini Cog Score: Score: 3 (patient legally blind-unable to do Clock Draw) Cognitive screening reviewed and no further action needed (score 3-5) Functional Observation Was the patient's timed Up AND Go test unsteady or ? 12 seconds? No Advance Care Planning End of Life planning discussed, including patient's advanced directive wishes: Yes Measurements BP 122/64 Pulse 65 Temp (Src) 96.4 (Left Tympanic) Resp 16 Ht 5' 4.5 (1.64m) Wt 192 lb 11.2 oz (87.4kg) SpO2 99% BMI 32.58 kg/(m2). Visual acuity (required for Welcome to Medicare): follows with optometry/ophthalmology and legally blind Hearing Evaluation: within normal limits ASSESSMENT/PLAN: 1. Medicare annual wellness visit, subsequent - ICD9: V70.0, ICD10: Z00.00 (primary diagnosis) The following prevention plan was discussed during the office visit and provided to the patient: - fall risk reduction - Counseled on healthy diet and regular exercise - Discussed need for and benefit of weight loss. BMI 32.57 kg/(m2) - Counseled on limiting alcohol intake to 2 drinks per day - Patient was counseled [id number] by myself (the billing provider) for the following immunizations and vaccine components, including side effects: COVID-19. Patient consents for immunization and understands risks and benefits. A VIS sheet on each immunization was given to the patient. - follow-up for medicare annual exam in one year 2. Anemia, unspecified type - ICD9: 285.9, ICD10: D64.9 Recheck labs in two months - CBC + DIFF - IRON + TIBC - FERRITIN BLD - VITAMIN B12 BLOOD - FOLATE SERUM 3. Encounter for immunization - ICD9: V03.89, ICD10: Z23 - PFIZER-BIONTECH COVID-19 BIVALENT VACCINE, AGE 12+ YR Sun Older, WATER OPERATOR.SAND ANALYST [facility] 11-22-2022 Instructions Sun Older, WATER OPERATOR.SAND ANALYST - 11/22/2022 11:27 AM EDT Recombinant shingles vaccine (Shingrix) is recommended; 2 doses 2-6 months apart. Please read information, check with your insurance, and schedule vaccination at your local pharmacy. A prescription is not required. If you are certain you have coverage to receive this vaccine in the office, we can schedule this for you. WHAT YOU CAN DO TO PREVENT FALLS Many falls can be prevented. By making some changes, you can lower your chances of falling. Four things YOU can do to prevent falls for you* and your caregiver 1. Begin a regular exercise program Exercise is one of the most important ways to lower your chances of falling. It makes you stronger and helps you feel better. Exercises that improve balance and coordination (like Venkatesh Chi) are the most helpful. Lack of exercise leads to weakness and increases your chances of falling. Ask your doctor or health care provider about the best type of exercise program for you. 2. Have your health care provider review your medicines Have your doctor or pharmacist review all the medicines you take, even [id number] medicines. As you get older, the way medicines work in your body can change. Some medicines, or combinations of medicines, can make you sleepy or dizzy and can cause you to fall. 3. Have your vision checked Have your eyes checked by an eye doctor at least once a year. You may be wearing the wrong glasses or have a condition like glaucoma or cataracts that limits your vision. Poor vision can increase your chances of falling. 4. Make your home safer About half of all falls happen at home. To make your home safer: Remove things you can trip over (like papers, books, clothes, and shoes) from stairs and places where you walk. Remove small throw rugs or use double-sided tape to keep the rugs from slipping. Keep items you use often in cabinets you can reach easily without using a step stool. Have grab bars put in next to your toilet and in the tub or shower. Use non-slip mats in the bathtub and on shower floors. Improve the lighting in your home. As you get older, you need brighter lights to see well. Hang light-weight curtains or shades to reduce glare. Have handrails and lights put in on all staircases. Wear shoes both inside and outside the house. Avoid going barefoot or wearing slippers. For more information, contact: Centers for Disease Control and Prevention www.cdc.gov/injury * This information may not apply if you have certain medical conditions. documented in this encounter [facility] 11-22-2022 History of Presen t illness Narrative Damon Swan is a 82 year old male here for a Medicare Subsequent Annual Wellness Visit Health Risk Assessment In general, health is: Good Concerns with balance:Several days Concerns with teeth or dentures:Not at all Concerns with sexual function:Not at all Floyd anxious, stressed, angry, irritable, lonely, isolated, or had thoughts of hurting themself: insomnia Has little interest or pleasure in doing things: Not at all Bothered by feeling down, depressed, or hopeless: Not at all Needs help with grocery shopping, cooking, housework, bathing, grooming, dressing, eating, sitting or standing, walking, using the toilet, handling finances, taking medications, using the telephone, or driving: No except does not drive due to being legally blind Following safety precautions in the home environment and vehicle: removed throw rugs from floors, installed grab bars in the bathroom, handrails in stairwells, having adequate lighting, wearing seatbelt at all times?: Yes Smokes cigarettes, vapes, or chew tobacco: No Eats healthy foods including fruits, vegetables, whole grains, and fiber-rich foods: Several days Number of days per week engages in exercise: sedentary Average alcohol consumption: 2 beers a night Current Providers Specialists: I have reviewed specialist-related care of the patient in the medical record. Current care team: Patient Care Team: Jose Wolfe MD as PCP - General (Internal Medicine) Outside specialists seen: air conditioning installer supervisor- Dr. Jasso Wrist Hemmer- RICHARD Ivan, flask carrier- Dr. Lazaro Medical/Family history review Reviewed and updated problem list, medical/surgical/family/social history, medications, and allergies. Opioid use review Patient is not currently using opioids. Depression screening Depression Screening PHQ-2 Score 11/22/2022 0 Depression screening tool completed and reviewed. Based on score and interview, patient is not at risk for depression. Screening tool discussed with patient, and I recommended no further intervention at this time. Cognitive screening Mini Cog Score: Score: 3 (patient legally blind-unable to do Clock Draw) Cognitive screening reviewed and no further action needed (score 3-5) Functional Observation Was the patient's timed Up & Go test unsteady or ? 12 seconds? No Advance Care Planning End of Life planning discussed, including patient's advanced directive wishes: Yes Measurements BP 122/64 Pulse 65 Temp (Src) 96.4 (Left Tympanic) Resp 16 Ht 5' 4.5 (1.64m) Wt 192 lb 11.2 oz (87.4kg) SpO2 99% BMI 32.58 kg/(m^2). Visual acuity (required for Welcome to Medicare): follows with optometry/ophthalmology and legally blind Hearing Evaluation: within normal limits ASSESSMENT/PLAN: 1. Medicare annual wellness visit, subsequent - ICD9: V70.0, ICD10: Z00.00 (primary diagnosis) The following prevention plan was discussed during the office visit and provided to the patient: - fall risk reduction - Counseled on healthy diet and regular exercise - Discussed need for and benefit of weight loss. BMI 32.57 kg/(m^2) - Counseled on limiting alcohol intake to 2 drinks per day - Patient was counseled [id number] by myself (the billing provider) for the following immunizations and vaccine components, including side effects: COVID-19. Patient consents for immunization and understands risks and benefits. A VIS sheet on each immunization was given to the patient. - follow-up for medicare annual exam in one year 2. Anemia, unspecified type - ICD9: 285.9, ICD10: D64.9 Recheck labs in two months - CBC + DIFF - IRON + TIBC - FERRITIN BLD - VITAMIN B12 BLOOD - FOLATE SERUM 3. Encounter for immunization - ICD9: V03.89, ICD10: Z23 - PFIZER-BIONTECH COVID-19 BIVALENT VACCINE, AGE 12+ YR Sun Gan APRN.CNP documented in this encounter [facility] 11-12-2022 Note HNO ID: [id number] Author: Dylon Lubin RN Service: ? Author Type: Registered Nurse Type: Progress Notes Filed: 11/12/2022 1:06 PM Note Text: CDM Telephonic Outreach Provider Action/FYI CDM: COPD Pt denies new or worsening symptoms, BP 120/60, Wt 190 lbs, Pt denies needs or concerns. Instructed to call PCP with any changes in symptoms or concerns. Pt verbalized understanding. Pt noted appreciation for call. Contacted for: Routine Telephonic Outreach Contact made with patient: Yes Patient identified by name and date of . Discussed care with patient Are you experiencing any new or worsening symptoms you need to talk about today? No Disease Specific Do you check your blood pressure at home? Yes, Enter readings: 120/60 Do you have new or worsening shortness of breath with activity? No Do you have new or worsening cough? No Do you have new or worsening wheezing? No Do you need to use your rescue (Albuterol) inhaler or nebulizer more often than normal? No Based on art editor, the following disposition is advised: N/A Routed to: No Action Needed ELIA Education Provided this Outreach: No Dylon Lubin RN November 12, 2022 1:00 PM [facility] 11-12-2022 Note Patient Outreach [place] DAMON SWAN ([id number]) 1940 M Date Time Provider Department 11/12/22 DYLON LUBINAnna During your visit today, we recorded the following information about you: Dylon Lubin RN 11/12/2022 1:06 PM Signed CDM Telephonic Outreach Provider Action/I CDM: COPD Pt denies new or worsening symptoms, BP 120/60, Wt 190 lbs, Pt denies needs or concerns. Instructed to call PCP with any changes in symptoms or concerns. Pt verbalized understanding. Pt noted appreciation for call. Contacted for: Routine Telephonic Outreach Contact made with patient: Yes Patient identified by name and date of . Discussed care with patient Are you experiencing any new or worsening symptoms you need to talk about today? No Disease Specific Do you check your blood pressure at home? Yes, Enter readings: 120/60 Do you have new or worsening shortness of breath with activity? No Do you have new or worsening cough? No Do you have new or worsening wheezing? No Do you need to use your rescue (Albuterol) inhaler or nebulizer more often than normal? No Based on art editor, the following disposition is advised: N/A Routed to: No Action Needed ELIA Education Provided this Outreach: No Dylon Lubin RN November 12, 2022 1:00 PM Allergies As of Date: 11/12/2022 Noted Allergy Reaction KEITH INHIBITORS 01/12/2013 3 - Cough LYRICA (PREGABALIN) 10/03/2014 1 - Mental Status Change Comments: Causes depression PERCOCET (OXYCODONE-ACETAMINOPHEN) 010 1 - Mental Status Change Date Reviewed: 10/15/2022 Reviewed by: Soha Akhtar APRN.SAND ANALYST - Fully Assessed Reason for Visit: Community Monitoring Outreach [Other] Prescriptions as of 11/12/2022 - tamsulosin (FLOMAX) 0.4 mg Take 1 capsule by mouth every evening. - fluticasone-vilanterol (BREO ELLIPTA) 100-25 mcg/dose inhaler Inhale 1 Inhalation as instructed once daily. - loratadine (CLARITIN) 10 mg tablet Take 1 tablet by mouth once daily as needed for cold/allergy symptoms. FOR ALLERGY SYMPTOMS - pantoprazole DR (PROTONIX) 40 mg tablet Take 1 tablet by mouth twice daily. - aspirin, enteric coated (ASPIRIN, ENTERIC COATED) 81 mg EC tablet Take 1 tablet by mouth once daily. - apixaban (ELIQUIS) 5 mg tab(s) Take by mouth twice daily. - albuterol HFA (PROVENTIL HFA) 90 mcg/actuation inhaler Inhale 2 Puffs as instructed every 4 hours as needed for wheezing/shortness of breath. - nitroglycerin sublingual (NITROQUICK) 0.4 mg SL tablet Dissolve 1 tablet under the tongue every 5 minutes as needed for chest pain. - furosemide (LASIX) 40 mg tablet Take 40 mg by mouth once daily. - isosorbide mononitrate ER (IMDUR) 30 mg 24 hr tablet Take 30 mg by mouth once daily. - atorvastatin (LIPITOR) 80 mg tablet Take 80 mg by mouth daily at bedtime. - sotalol 120 mg ORAL tablet Take 1 tablet by mouth twice daily. Meds Comments as of 01/09/2016: Currently on coumadin - unsure of current dose Pt does not take the Vit b. 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 OVERWEIGHT [E66.9] 08/15/2006 03/10/2022 Acute, but ill-defined, cerebrovascular disease*12/29/2006 09/20/2011 Headache [R51] 12/29/2006 03/24/2010 Abdominal Pain, Right Upper Quadrant [R10.11] 05/15/2008 03/24/2010 FLATUL/ERUCTAT/GAS PAIN [R14.3, R14.1, R14.2] 05/15/2008 10/16/2008 SCREENING MAL NEOP-COLON [Z12.11] 05/15/2008 10/16/2008 HYPERGLYCEMIA [R79.89] 10/16/2008 09/25/2012 Atrial fibrillation (HCC) [I48.91] 11/24/2009 Insomnia [G47.00] 11/24/2009 09/25/2012 Depression [F32.A] 06/09/2011 09/25/2012 Actinic Keratosis: Premalignant AK [L57.0] 11/18/2011 10/03/2014 Skin tag [L91.8] 11/18/2011 09/25/2012 Intradermal nevus [D23.9] 11/18/2011 09/25/2012 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] 11/18/2011 09/25/2012 Actinic skin damage [L57.8] 11/18/2011 09/25/2012 Solar lentigo [L81.4] 11/18/2011 09/25/2012 Rhinitis [J31.0] 09/25/2012 Hyponatremia [E87.1] 09/28/2012 10/03/2014 Irritated//Inflamed Seborrheic Keratosis [L82.0]02/13/2014 10/03/2014 Pigmented Lentiginous Neoplasm Uncertain Behavi*02/13/2014 04/02/2017 Solar lentigo [L81.4] 02/13/2014 04/02/2017 Actinic skin damage [L57.8] 02/13/2014 Melanocytic nevus of trunk [D22.5] 02/13/2014 04/02/2017 Thrombocytopenia (HCC) [D69.6] 09/26/2014 DDD (degenerative disc disease), lumbar [M51.36]07/18/2013 Edema of both legs [R60.0] 10/03/2014 Insomnia [G4 (more content not included)... [facility] 11-12-2022 History of Presen t illness Narrative CDM Telephonic Outreach Provider Action/FYI CDM: COPD Pt denies new or worsening symptoms, BP 120/60, Wt 190 lbs, Pt denies needs or concerns. Instructed to call PCP with any changes in symptoms or concerns. Pt verbalized understanding. Pt noted appreciation for call. Contacted for: Routine Telephonic Outreach Contact made with patient: Yes Patient identified by name and date of . Discussed care with patient Are you experiencing any new or worsening symptoms you need to talk about today? No Disease Specific Do you check your blood pressure at home? Yes, Enter readings: 120/60 Do you have new or worsening shortness of breath with activity? No Do you have new or worsening cough? No Do you have new or worsening wheezing? No Do you need to use your rescue (Albuterol) inhaler or nebulizer more often than normal? No Based on art editor, the following disposition is advised: N/A Routed to: No Action Needed ELIA Education Provided this Outreach: No Dylon Lubin RN November 12, 2022 1:00 PM documented in this encounter [facility] 11-04-2022 Miscellaneous Notes patient notified and verbalized understanding. Perla Taylor LPN Fasting labs ordered for next week. Patient calling has Medicare Wellness appt with Sun Older on November 22, asking for lab orders. Patient said he has been fatigued. Last labs were done 07/2021 for lipids, etc, last CBC was done 07/2022. Pending orders if wanted, needs diagnosis. Please advise documented in this encounter [facility] 10-20-2022 Note HNO ID: [id number] Author: Dylon Lubin RN Service: ? Author Type: Registered Nurse Type: Progress Notes Filed: 10/20/2022 5:28 PM Note Text: INSIGHT CDM TELEPHONIC OUTREACH Provider Action/FYI: CDM: COPD Spk with Ica spouse, Damon completed Appt 10/15/22 with Yamilex GUTIERREZ Pulmonology Pt's noted he feels stronger, was doing yard work and is napping now, denies any new or worsening symptoms, concerns or needs. Instructed to call PCP with any changes in condition Ica verbalized understanding and appreciation for call. Contact made with patient: Yes Patient identified by name and . Discussed care with spouse It?s nice talking to you again. As a reminder, this is our bi-weekly check-in where I will be asking you questions about your health. This will only take a few minutes of your time. Is this a good time? Yes Symptoms What Chronic Disease(s) does the patient have: COPD Do you check your blood pressures at home? Yes, Enter readings: 106/? Do you have new or worse shortness of breath with activity? No Do you have new or worsening cough? No Do you have new or worsening wheezing? No Do you need to use your rescue (Albuterol) inhaler or nebulizer more often than normal? No Are you having any other symptoms that your PCP needs to know about? No Symptoms: Symptom Escalation ELIA Education Ordered -: No The patient required an escalation for symptom(s)? No Medications Do you have any questions about taking your medication or which medications you should be on? No Do you need any medication refills at this time, including any of the medications you might take only when needed? No Social We would like to make sure you have what you need so that your basic needs are met- including your personal safety, food, housing, transportation and medications? Would you like to speak with a social work wall steamer to help give you support for any of these needs? No It can be normal to feel anxious or down during a time like this. Would you like to talk to a mental health professional about how you have been feeling? No Closing Thank you for taking the time to talk with me today. We want to work with you to ensure that we are keeping your medical condition(s) well-controlled and to keep you healthy and out of the doctor's office or hospital. It?s also not too late for me to sign you up for automated weekly questionnaires through [employer]. This is an easy way for us to stay connected each week. Are you interested? No, I understand. We can always sign you up in the future if you change your mind. Just as a reminder, will continue to call you every other week to check in on your health. Our calls should take 10-15 minutes or less. Remember, if you have concerns in between our calls, please call your PCP's office right away. Thank you. Enter next patient outreach date for two weeks on the same day of the week as today in the Track Pt Outreach and End outreach. Dylon Lubin RN October 20, 2022 3:29 PM [facility] 10-20-2022 History of Presen t illness Narrative INSIGHT CDM TELEPHONIC OUTREACH Provider Action/FYI: CDM: COPD Spk with Ica spouseDamon completed Appt 10/15/22 with Yamilex GUTIERREZ Pulmonology Pt's noted he feels stronger, was doing yard work and is napping now, denies any new or worsening symptoms, concerns or needs. Instructed to call PCP with any changes in condition Ica verbalized understanding and appreciation for call. Contact made with patient: Yes Patient identified by name and . Discussed care with spouse It s nice talking to you again. As a reminder, this is our bi-weekly check-in where I will be asking you questions about your health. This will only take a few minutes of your time. Is this a good time? Yes Symptoms What Chronic Disease(s) does the patient have: COPD Do you check your blood pressures at home? Yes, Enter readings: 106/? Do you have new or worse shortness of breath with activity? No Do you have new or worsening cough? No Do you have new or worsening wheezing? No Do you need to use your rescue (Albuterol) inhaler or nebulizer more often than normal? No Are you having any other symptoms that your PCP needs to know about? No Symptoms: Symptom Escalation ELIA Education Ordered -: No The patient required an escalation for symptom(s)? No Medications Do you have any questions about taking your medication or which medications you should be on? No Do you need any medication refills at this time, including any of the medications you might take only when needed? No Social We would like to make sure you have what you need so that your basic needs are met- including your personal safety, food, housing, transportation and medications? Would you like to speak with a social work wall steamer to help give you support for any of these needs? No It can be normal to feel anxious or down during a time like this. Would you like to talk to a mental health professional about how you have been feeling? No Closing Thank you for taking the time to talk with me today. We want to work with you to ensure that we are keeping your medical condition(s) well-controlled and to keep you healthy and out of the doctor's office or hospital. It s also not too late for me to sign you up for automated weekly questionnaires through [employer]. This is an easy way for us to stay connected each week. Are you interested? No, I understand. We can always sign you up in the future if you change your mind. Just as a reminder, will continue to call you every other week to check in on your health. Our calls should take 10-15 minutes or less. Remember, if you have concerns in between our calls, please call your PCP's office right away. Thank you. Enter next patient outreach date for two weeks on the same day of the week as today in the Track Pt Outreach and End outreach. Dylon Lubin RN October 20, 2022 3:29 PM documented in this encounter [facility] 10-20-2022 Note Patient Outreach [place] [facility] SIMIGULSHANDAMON ([id number]) 1940 M Date Time Provider Department 10/20/22 DYLON LUBIN During your visit today, we recorded the following information about you: Dylon Lubin RN 10/20/2022 5:28 PM Signed INSIGHT CDM TELEPHONIC OUTREACH Provider Action/FYI: CDM: COPD Spk with Ica spouseDamon completed Appt 10/15/22 with Yamilex GUTIERREZ Pulmonology Pt's noted he feels stronger, was doing yard work and is napping now, denies any new or worsening symptoms, concerns or needs. Instructed to call PCP with any changes in condition Ica verbalized understanding and appreciation for call. Contact made with patient: Yes Patient identified by name and . Discussed care with spouse It?s nice talking to you again. As a reminder, this is our bi-weekly check-in where I will be asking you questions about your health. This will only take a few minutes of your time. Is this a good time? Yes Symptoms What Chronic Disease(s) does the patient have: COPD Do you check your blood pressures at home? Yes, Enter readings: 106/? Do you have new or worse shortness of breath with activity? No Do you have new or worsening cough? No Do you have new or worsening wheezing? No Do you need to use your rescue (Albuterol) inhaler or nebulizer more often than normal? No Are you having any other symptoms that your PCP needs to know about? No Symptoms: Symptom Escalation ELIA Education Ordered -: No The patient required an escalation for symptom(s)? No Medications Do you have any questions about taking your medication or which medications you should be on? No Do you need any medication refills at this time, including any of the medications you might take only when needed? No Social We would like to make sure you have what you need so that your basic needs are met- including your personal safety, food, housing, transportation and medications? Would you like to speak with a social work wall steamer to help give you support for any of these needs? No It can be normal to feel anxious or down during a time like this. Would you like to talk to a mental health professional about how you have been feeling? No Closing Thank you for taking the time to talk with me today. We want to work with you to ensure that we are keeping your medical condition(s) well-controlled and to keep you healthy and out of the doctor's office or hospital. It?s also not too late for me to sign you up for automated weekly questionnaires through [employer]. This is an easy way for us to stay connected each week. Are you interested? No, I understand. We can always sign you up in the future if you change your mind. Just as a reminder, will continue to call you every other week to check in on your health. Our calls should take 10-15 minutes or less. Remember, if you have concerns in between our calls, please call your PCP's office right away. Thank you. Enter next patient outreach date for two weeks on the same day of the week as today in the Track Pt Outreach and End outreach. Dylon Lubin RN October 20, 2022 3:29 PM Allergies As of Date: 10/20/2022 Noted Allergy Reaction KEITH INHIBITORS 01/12/2013 3 - Cough LYRICA (PREGABALIN) 10/03/2014 1 - Mental Status Change Comments: Causes depression PERCOCET (OXYCODONE-ACETAMINOPHEN) 010 1 - Mental Status Change Date Reviewed: 10/15/2022 Reviewed by: Soha Akhtar APRN.SAND ANALYST - Fully Assessed Reason for Visit: Community Monitoring Outreach [Other] Prescriptions as of 10/20/2022 - fluticasone-vilanterol (BREO ELLIPTA) 100-25 mcg/dose inhaler Inhale 1 Inhalation as instructed once daily. - loratadine (CLARITIN) 10 mg tablet Take 1 tablet by mouth once daily as needed for cold/allergy symptoms. FOR ALLERGY SYMPTOMS - pantoprazole DR (PROTONIX) 40 mg tablet Take 1 tablet by mouth twice daily. - aspirin, enteric coated (ASPIRIN, ENTERIC COATED) 81 mg EC tablet Take 1 tablet by mouth once daily. - apixaban (ELIQUIS) 5 mg tab(s) Take by mouth twice daily. - tamsulosin (FLOMAX) 0.4 mg Take 1 capsule by mouth every evening. - albuterol HFA (PROVENTIL HFA) 90 mcg/actuation inhaler Inhale 2 Puffs as instructed every 4 hours as needed for wheezing/shortness of breath. - nitroglycerin sublingual (NITROQUICK) 0.4 mg SL tablet Dissolve 1 tablet under the tongue every 5 minutes as needed for chest pain. - furosemide (LASIX) 40 mg tablet Take 40 mg by mouth once daily. - isosorbide mononitrate ER (IMDUR) 30 mg 24 hr tablet Take 30 mg by mouth once daily. - atorvastatin (LIPITOR) 80 mg tablet Take 80 mg by mouth daily at bedtime. - sotalol 120 mg ORAL tablet Take 1 tablet by mouth twice daily. Meds Comments as of 01/09/2016: Currently on coumadin - unsure of current dose Pt does not take the Vit b. KB 01/09 Problem List As (more content not included)... [facility] documented as of this encounter (statuses as of 06/29/2023) [facility]03-31-2023 History of Past illness Narrative* Problem Noted Date Diagnosed Date Resolved Date Syncope 10/15/2022 06/28/2023 Acute upper GI bleed 07/28/2022 023 Transient cerebral ischemia 12/09/2017 04/04/2018 Orthostatic dizziness 04/02/20172017 Thrombocytopenia 09/26/2014 05/25/2023 Irritated//Inflamed Seborrheic Keratosis 02/13/2014 10/03/2014 Pigmented Lentiginous Neopla sm Uncertain Behavior(NUB): R/O Lentigo Maligna at right hinduism//cheek face 02/13/2014 04/02/2017 Solar lentigo 02/13/2014 04/02/2017 Melanocytic nevus of trunk 02/13/2014 0 04/02/2017 Hyponatremia 09/28/2012 10/03/2014 Actinic Keratosis: Premalignant AK 11/18/2011 10/03/2014 Skin tag 11/18/2011 09/25/2012 Intradermal nevus 11/18/2011 09/25/2012 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05/2013 Actinic skin damage 11/18/2011 09/26/19 13 Solar lentigo 11/18/2011 09/25/2012 Depression 06/09/2011 09/25/2012 Insomnia 11/24/2009 09/25/2012 HYPERGLYCEMIA 10/16/2008 09/25/2012 Abdominal pain, right upper quadrant 05/15/2008 03/24/2010 Flatulence, eructation, and gas pain 05/15/2008 10/16/2008 Special screening for malign ant neoplasms, colon 05/15/2008 10/16/2008 Acute, but ill-defined, cere brovascular disease 12/29/2006 09/20/2011 Headache(784.0) 12/29/2006 03/24/2010 Personal history of colonic polyps 08/15/2006 04/04/2018 Overview: Colonoscopy - 15 May 2008 per [facility] 08/15/2006 03/10/2022 Cough 06/07/2006 10/08/2010 Chest pain, unspecified 09/16 Overview: [facility] adm 03/17-03/18/10- Nuclear stress test no ischemia or ST changes, EF 70%. F/u with cardiology CABG 2003 @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 Active CP in office 04/2010- to [facility] ED for eval- abn EKG, t-wave inversion documented as of this encounter (statuses as of 07/02/2023) [facility] History of Past illness Narrative* Problem Noted Date Diagnosed Date Resolved Date Syncope 10/15/2022 06/28/2023 Acute upper GI bleed 07/28/2022 023 Transient cerebral ischemia 12/09/2017 04/04/2018 Orthostatic dizziness 04/02/20172017 Thrombocytopenia 09/26/2014 05/25/2023 Irritated//Inflamed Seborrheic Keratosis 02/13/2014 10/03/2014 Pigmented Lentiginous Neopla sm Uncertain Behavior(NUB): R/O Lentigo Maligna at right hinduism//cheek face 02/13/2014 04/02/2017 Solar lentigo 02/13/2014 04/02/2017 Melanocytic nevus of trunk 02/13/2014 0 04/02/2017 Hyponatremia 09/28/2012 10/03/2014 Actinic Keratosis: Premalignant AK 11/18/2011 10/03/2014 Skin tag 11/18/2011 09/25/2012 Intradermal nevus 11/18/2011 09/25/2012 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05/2013 Actinic skin damage 11/18/2011 09/26/19 13 Solar lentigo 11/18/2011 09/25/2012 Depression 06/09/2011 09/25/2012 Insomnia 11/24/2009 09/25/2012 HYPERGLYCEMIA 10/16/2008 09/25/2012 Abdominal pain, right upper quadrant 05/15/2008 03/24/2010 Flatulence, eructation, and gas pain 05/15/2008 10/16/2008 Special screening for malign ant neoplasms, colon 05/15/2008 10/16/2008 Acute, but ill-defined, cere brovascular disease 12/29/2006 09/20/2011 Headache(784.0) 12/29/2006 03/24/2010 Personal history of colonic polyps 08/15/2006 04/04/2018 Overview: Colonoscopy - 15 May 2008 per [facility] OVERWEIGHT 08/15/2006 03/10/2022 Cough 06/07/2006 10/08/2010 Chest pain, unspecified 09/16 Overview: [facility] adm 03/17-03/18/10- Nuclear stress test no ischemia or ST changes, EF 70%. F/u with cardiology CABG 2003 @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 Active CP in office 04/2010- to [facility] ED for eval- abn EKG, t-wave inversion documented as of this encounter (statuses as of 07/17/2023) [facility] History of Past illness Narrative* Problem Noted Date Diagnosed Date Resolved Date Syncope 10/15/2022 06/28/2023 Acute upper GI bleed 07/28/2022 023 Transient cerebral ischemia 12/09/2017 04/04/2018 Orthostatic dizziness 04/02/20172017 Thrombocytopenia 09/26/2014 05/25/2023 Irritated//Inflamed Seborrheic Keratosis 02/13/2014 10/03/2014 Pigmented Lentiginous Neopla sm Uncertain Behavior(NUB): R/O Lentigo Maligna at right hinduism//cheek face 02/13/2014 04/02/2017 Solar lentigo 02/13/2014 04/02/2017 Melanocytic nevus of trunk 02/13/2014 0 04/02/2017 Hyponatremia 09/28/2012 10/03/2014 Actinic Keratosis: Premalignant AK 11/18/2011 10/03/2014 Skin tag 11/18/2011 09/25/2012 Intradermal nevus 11/18/2011 09/25/2012 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05/2013 Actinic skin damage 11/18/2011 09/26/19 13 Solar lentigo 11/18/2011 09/25/2012 Depression 06/09/2011 09/25/2012 Insomnia 11/24/2009 09/25/2012 HYPERGLYCEMIA 10/16/2008 09/25/2012 Abdominal pain, right upper quadrant 05/15/2008 03/24/2010 Flatulence, eructation, and gas pain 05/15/2008 10/16/2008 Special screening for malign ant neoplasms, colon 05/15/2008 10/16/2008 Acute, but ill-defined, cere brovascular disease 12/29/2006 09/20/2011 Headache(784.0) 12/29/2006 03/24/2010 Personal history of colonic polyps 08/15/2006 04/04/2018 Overview: Colonoscopy - 15 May 2008 per [facility] 08/15/2006 03/10/2022 Cough 06/07/2006 10/08/2010 Chest pain, unspecified 09/16 Overview: [facility] adm 03/17-03/18/10- Nuclear stress test no ischemia or ST changes, EF 70%. F/u with cardiology CABG 2003 @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 Active CP in office 04/2010- to [facility] ED for eval- abn EKG, t-wave inversion documented as of this encounter (statuses as of 08/19/2023) [facility] History of Past illness Narrative* Problem Noted Date Diagnosed Date Resolved Date Syncope 10/15/2022 06/28/2023 Acute upper GI bleed 07/28/2022 023 Transient cerebral ischemia 12/09/2017 04/04/2018 Orthostatic dizziness 04/02/20172017 Thrombocytopenia 09/26/2014 05/25/2023 Irritated//Inflamed Seborrheic Keratosis 02/13/2014 10/03/2014 Pigmented Lentiginous Neopla sm Uncertain Behavior(NUB): R/O Lentigo Maligna at right hinduism//cheek face 02/13/2014 04/02/2017 Solar lentigo 02/13/2014 04/02/2017 Melanocytic nevus of trunk 02/13/2014 0 04/02/2017 Hyponatremia 09/28/2012 10/03/2014 Actinic Keratosis: Premalignant AK 11/18/2011 10/03/2014 Skin tag 11/18/2011 09/25/2012 Intradermal nevus 11/18/2011 09/25/2012 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05/2013 Actinic skin damage 11/18/2011 09/26/19 13 Solar lentigo 11/18/2011 09/25/2012 Depression 06/09/2011 09/25/2012 Insomnia 11/24/2009 09/25/2012 HYPERGLYCEMIA 10/16/2008 09/25/2012 Abdominal pain, right upper quadrant 05/15/2008 03/24/2010 Flatulence, eructation, and gas pain 05/15/2008 10/16/2008 Special screening for malign ant neoplasms, colon 05/15/2008 10/16/2008 Acute, but ill-defined, cere brovascular disease 12/29/2006 09/20/2011 Headache(784.0) 12/29/2006 03/24/2010 Personal history of colonic polyps 08/15/2006 04/04/2018 Overview: Colonoscopy - 15 May 2008 per [facility] 08/15/2006 03/10/2022 Cough 06/07/2006 10/08/2010 Chest pain, unspecified 09/16 Overview: [facility] adm 03/17-03/18/10- Nuclear stress test no ischemia or ST changes, EF 70%. F/u with cardiology CABG 2003 @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 Active CP in office 04/2010- to [facility] ED for eval- abn EKG, t-wave inversion documented as of this encounter (statuses as of 09/20/2023) [facility] History of Past illness Narrative* Problem Noted Date Diagnosed Date Resolved Date Syncope 10/15/2022 06/28/2023 Acute upper GI bleed 07/28/2022 023 Transient cerebral ischemia 12/09/2017 04/04/2018 Orthostatic dizziness 04/02/20172017 Thrombocytopenia 09/26/2014 05/25/2023 Irritated//Inflamed Seborrheic Keratosis 02/13/2014 10/03/2014 Pigmented Lentiginous Neopla sm Uncertain Behavior(NUB): R/O Lentigo Maligna at right hinduism//cheek face 02/13/2014 04/02/2017 Solar lentigo 02/13/2014 04/02/2017 Melanocytic nevus of trunk 02/13/2014 0 04/02/2017 Hyponatremia 09/28/2012 10/03/2014 Actinic Keratosis: Premalignant AK 11/18/2011 10/03/2014 Skin tag 11/18/2011 09/25/2012 Intradermal nevus 11/18/2011 09/25/2012 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05/2013 Actinic skin damage 11/18/2011 09/26/19 13 Solar lentigo 11/18/2011 09/25/2012 Depression 06/09/2011 09/25/2012 Insomnia 11/24/2009 09/25/2012 HYPERGLYCEMIA 10/16/2008 09/25/2012 Abdominal pain, right upper quadrant 05/15/2008 03/24/2010 Flatulence, eructation, and gas pain 05/15/2008 10/16/2008 Special screening for malign ant neoplasms, colon 05/15/2008 10/16/2008 Acute, but ill-defined, cere brovascular disease 12/29/2006 09/20/2011 Headache(784.0) 12/29/2006 03/24/2010 Personal history of colonic polyps 08/15/2006 04/04/2018 Overview: Colonoscopy - 15 May 2008 per [facility] OVERWE[facility] 08/15/2006 03/10/2022 Cough 06/07/2006 10/08/2010 Chest pain, unspecified 09/16 Overview: [facility] adm 03/17-03/18/10- Nuclear stress test no ischemia or ST changes, EF 70%. F/u with cardiology CABG 2003 @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 Active CP in office 04/2010- to [facility] ED for eval- abn EKG, t-wave inversion documented as of this encounter (statuses as of 09/21/2023) [facility]03-31-2023 NoteHNO ID: [id number] Author: RT Jl(R) Service: ? Author Type: Armored Car Driver Type: Progress Notes Filed: 10/15/2022 11:35 AM Note Text: Radiology Service Progress Note PATIENT NAME: Damon Swan DATE OF SERVICE: October 15, 2022 TIME: 11:26 AM PATIENT IDENTITY VERIFICATION COMPLETED USING TWO (2) IDENTIFIERS: Name and Date of confirmed by patient verbally. FALL SCREENING: Has the patient had 2 falls in the last year or 1 fall with injury or currently using an Ambulatory Assistive Device (Walker, Cane, Wheelchair, Crutches, etc.)? No PATIENT GENDER DATA: Male PATIENT RELEVANT IMPLANT DATA REVIEWED: Yes RADIOLOGY DEPARTMENT: General X-ray: Exam(s) Completed: Chest X-Ray PERIPHERAL IV DATA: Not applicable SIGNED BY: RT Jl(R) October 15, 2022 11:26 [facility]03-31-2023 NoteHNO ID: [id number] Author: Yamilex Hsieh PA-C Service: ? Author Type: Physician Razor Grinder Type: Progress Notes Filed: 10/15/2022 12:56 PM Note Text: Patient: Damon Swan PCP: Jose Wolfe MD CC: COPD follow up HPI: Damon Swan 82 year old male former smoker, quitting in 1980 with PMH significant for CAD s/p CABG 2003 which was complicated by left-sided pleural effusion, Afib on Xarelto, CAD, CVA, legally blind, GI bleed, and COPD here for pulmonary follow up. He is accompanied by his . Since the last Pulmonary Clinic visit 09/17/2021, the patient has not required ED care for exacerbation. There has been no hospital admission for exacerbation. Claims to be consistently compliant with prescribed maintenance Breo inhaler. Uses rescue bronchodilator 1x every few weeks. Has episodes where he will cough, triggered by throat being itchy or dy. No sputum volume. No wheezing. No dyspnea at rest. Exertional dyspnea has not changed. Was recently hospitalized in June 2022 for GI bleed. Denies any blood in his stool at this time. No heartburn or indigestion. CXR at that time revealed bilateral pleural effusions that did not require thoracentesis. Patient has not had a follow-up CXR to evaluate resolution. He has a history of pleural effusions following CABG in March 2004. PAST MEDICAL HISTORY Diagnosis Date Abdominal pain, right upper quadrant Acute gastritis without mention of hemorrhage Acute, but ill-defined, cerebrovascular disease 02/2007 ASTHMA UNSPECIFIED 08/15/2006 Atrial fibrillation (HCC) 11/24/2009 Chest pain, unspecified CHRONIC AIRWAY OBSTRUCTION NEC 08/15/2006 CORONARY ATHEROSCLER UNSPEC VESSEL 03/25/2005 Coronary atherosclerosis of [place] coronary artery CVA (cerebral vascular accident) (HCC) 1999 DDD (degenerative disc disease), lumbar 07/18/2013 Dr. Gates, [facility]. Dr. Mondragon. Pain Management. Depression 06/09/2011 Diaphragmatic hernia without mention of obstruction or gangrene Diaphragmatic hernia without mention of obstruction or gangrene External hemorrhoids without mention of complication Flatulence, eructation, and gas pain Hypertrophy of prostate with urinary obstruction and other lower urinary tract symptoms (LUTS) Impaired fasting glucose 10/17/2015 Incisional hernia without mention of obstruction or gangrene 11/22 Legal blindness, as defined in [place] Reflux esophagitis Thrombocytopenia (HCC) 09/26/2014 Transient cerebral ischemia 12/09/2017 Unspecified constipation Unspecified hyperplasia of prostate with urinary obstruction and other lower urinary tract symptoms (LUTS) 08/15/2006 Allergies: Keith Inhibitors Cough Lyrica [Pregabalin] Mental Status Change Comment:Causes depression Percocet [Oxycodone* Mental Status Change fluticasone-vilanterol (BREO ELLIPTA) 100-25 mcg/dose inhaler Inhale 1 Inhalation as instructed once daily. pantoprazole DR (PROTONIX) 40 mg tablet Take 1 tablet by mouth twice daily. pantoprazole DR (PROTONIX) 40 mg tablet Take 1 tablet by mouth twice daily. aspirin, enteric coated (ASPIRIN, ENTERIC COATED) 81 mg EC tablet Take 1 tablet by mouth once daily. apixaban (ELIQUIS) 5 mg tab(s) Take by mouth twice daily. tamsulosin (FLOMAX) 0.4 mg Take 1 capsule by mouth every evening. albuterol HFA (PROVENTIL HFA) 90 mcg/actuation inhaler Inhale 2 Puffs as instructed every 4 hours as needed for wheezing/shortness of breath. nitroglycerin sublingual (NITROQUICK) 0.4 mg SL tablet Dissolve 1 tablet under the tongue every 5 minutes as needed for chest pain. furosemide (LASIX) 40 mg tablet Take 40 mg by mouth once daily. isosorbide mononitrate ER (IMDUR) 30 mg 24 hr tablet Take 30 mg by mouth once daily. atorvastatin (LIPITOR) 80 mg tablet Take 80 mg by mouth daily at bedtime. sotalol 120 mg ORAL tablet Take 1 tablet by mouth twice daily. Social History Tobacco Use Smoking status: Former Packs/day: 1.50 Years: 23.00 Pack years: 34.50 Types: Cigarettes Start date: 1958 Quit date: 03/11/1981 Years since quittin.6 Smokeless tobacco: Never Tobacco comments: No household ETS. Substance Use Topics Alcohol use: Yes Alcohol/week: 35.0 standard drinks Types: 14 Cans of Beer (12oz) per week Drug use: No Family History Problem Relation Age of Onset Cancer Sister lymphoma other (stomach cancer [Other]) Father other (dementia [Other]) Mother age 93 PAST SURGICAL HISTORY Procedure Laterality Date ANGIOPLASTY 08/04/2012 Circumflex unsuccessful CABG, ARTERIAL, THREE 03/31/2004 COLONOSCOPY 07/14/2022 + adenomatous polyp COLONOSCOPY - DIAGNOSTIC 06/1998, 10/2002 COLONOSCOPY FLX DX W/COLLJ SPEC WHEN PFRMD 05/15/2008 COLONOSCOPY W/BIOPSY SINGLE/MULTIPLE 10/26/2018 Dr. Nicole Fonseca. Negative for microscopic colitis. ECHO STRESS 10/2007 EGD TRANSORAL BIOPSY SINGLE/MULTIPLE 05/15/2008 EGD W/O BRSH SPEC VARIC (more content not included)...[facility] 10-15-2022 Miscellaneous Notes* Result Encounter Note - Yamilex Hsieh PA-C - 10/15/2022 11:30 AM EDT Please call Damon to alert him that his CXR is normal. Pleural effusions resolved. [facility] in [facility] encounterA[facility] History of Present illness Narrative* Yamilex Hsieh PA-C - 10/15/2022 11:00 AM EDT Patient: Damon Swan PCP: Jose Wolfe MD CC: COPD follow up HPI: Damon Swan 82 year old male former smoker, quitting in 1980 with PMH significant for CAD s/p CABG 2003 which was complicated by left-sided pleural effusion, Afib on Xarelto, CAD, CVA, legallyblind, GI bleed, and COPD here for pulmonary follow up. He is accompanied by his . Since the last Pulmonary Clinic visit 09/17/2021, the patient has not required ED care for exacerbation. There has been no hospital admission for exacerbation. Claims to be consistently compliant with prescribed maintenance Breo inhaler. Uses rescue bronchodilator 1x every few weeks. Has episodes where he will cough, triggered by throat being itchy or dy. No sputum volume. No wheezing. No dyspnea at rest. Exertional dyspnea has not changed. Was recently hospitalized in June 2022 for GI bleed. Denies any blood in his stool at this time. No heartburn or indigestion. CXR at that time revealed bilateral pleural effusions that did not require thoracentesis. Patient has not had a follow-up CXR to evaluate resolution. 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 PAST MEDICAL HISTORY Diagnosis Date Abdominal pain, right upper quadrant Acute gastritis without mention of hemorrhage Acute, but ill-defined, cerebrovascular disease 02/2007 ASTHMA UNSPECIFIED 08/15/2006 Atrial fibrillation (HCC) 11/24/2009 Chest pain, unspecified CHRONIC AIRWAY OBSTRUCTION NEC 08/15/2006 CORONARY ATHEROSCLER UNSPEC VESSEL 03/25/2005 Coronary atherosclerosis of [place] coronary artery CVA (cerebral vascular accident) ([facility]) 1999 DDD (degenerative disc disease), lumbar 07/18/2013 Dr. Gates, [facility]. Dr. Mondragon. Pain Management. Depression 06/09/2011 Diaphragmatic hernia without mention of obstruction or gangrene Diaphragmatic hernia without mention of obstruction or gangrene External hemorrhoids without mention of complication Flatulence, eructation, and gas pain Hypertrophy of prostate with urinary obstruction and other lower urinary tract symptoms (LUTS) Impaired fasting glucose 10/17/2015 Incisional hernia without mention of obstruction or gangrene 11/22 Legal blindness, as defined in [place] Reflux esophagitis Thrombocytopenia ([facility]) 09/26/2014 Transient cerebral ischemia 12/09/2017 Unspecified constipation Unspecified hyperplasia of prostate with urinary obstruction and other lower urinary tract symptoms(LUTS) 08/15/2006 Allergies: Keith Inhibitors Cough Lyrica [Pregabalin] Mental Status Change Comment:Causes depression Percocet [Oxycodone* Mental Status Change fluticasone-vilanterol (BREO ELLIPTA) 100-25 mcg/dose inhaler Inhale 1 Inhalation as instructed once daily. pantoprazole DR (PROTONIX) 40 mg tablet Take 1 tablet by mouth twice daily. pantoprazole DR (PROTONIX) 40 mg tablet Take 1 tablet by mouth twice daily. aspirin, enteric coated (ASPIRIN, ENTERIC COATED) 81 mg EC tablet Take 1 tablet by mouth once daily. apixaban (ELIQUIS) 5 mg tab(s) Take by mouth twice daily. tamsulosin (FLOMAX) 0.4 mg Take 1 capsule by mouth every evening. albuterol HFA (PROVENTIL HFA) 90 mcg/actuation inhaler Inhale 2 Puffs as instructed every 4 hours as needed for wheezing/shortness of breath. nitroglycerin sublingual (NITROQUICK) 0.4 mg SL tablet Dissolve 1 tablet under the tongue every 5 minutes as needed for chest pain. furosemide (LASIX) 40 mg tablet Take 40 mg by mouth once daily. isosorbide mononitrate ER (IMDUR) 30 mg 24 hr tablet Take 30 mg by mouth once daily. atorvastatin (LIPITOR) 80 mg tablet Take 80 mg by mouth daily at bedtime. sotalol 120 mg ORAL tablet Take 1 tablet by mouth twice daily. Social History Tobacco Use Smoking status: Former Packs/day: 1.50 Years: 23.00 Pack years: 34.50 Types: Cigarettes Start date: 1958 Quit date: 03/11/1981 Years since quittin.6 Smokeless tobacco: Never Tobacco comments: No household ETS. Substance Use Topics Alcohol use: Yes Alcohol/week: 35.0 standard drinks Types: 14 Cans of Beer (12oz) per week Drug use: No Family History Problem Relation Age of Onset Cancer Sister lymphoma other (stomach cancer [Other]) Father other (dementia [Other]) Mother age 93 PAST SURGICAL HISTORY Procedure Laterality Date ANGIOPLASTY 08/04/2012 Circumflex unsuccessful CABG, ARTERIAL, THREE 03/31/2004 COLONOSCOPY 07/14/2022 + adenomatous polyp COLONOSCOPY - DIAGNOSTIC 06/1998, 10/2002 COLONOSCOPY FLX DX W/COLLJ SPEC WHEN PFRMD 05/15/2008 COLONOSCOPY W/BIOPSY SINGLE/MULTIPLE 10/26/2018 Dr. Nicole Fonseca. Negative for microscopic colitis. ECHO STRESS 10/2007 EGD TRANSORAL BIOPSY SINGLE/MULTIPLE 05/15/2008 EGD W/O BRSH SPEC VARICIES INJ 07/13/2022 ESOPHAGOGASTRODUODENOSCOPY TRANSORAL DIAGNOSTIC 06/07/2001 EGD ESOPHAGOGASTRODUODENOSCOPY TRANSORAL DIAGNOSTIC 02/13/2007 EGD ESOPHAGOGASTRODUODENOSCOPY TRANSORAL DIAGNOSTIC 11/10/2011 EGD IMPLANT MESH OPN HERNIA RPR/DEBRIDEMENT CLOSURE 12/18/2007 LAPAROSCOPY SURG CHOLECYSTECTOMY 03/2006 Cholecystectomy, lap & umbilical hernia repair LAPS SURG CHOLECYSTECTOMY W/CHOLANGIOGRAPHY 04/04/2006 LEFT HEART CATH 08/04/2012 subsequent PTCA and CHAD to RCA( [facility]) LEFT HEART CATH,PERCUTANEOUS 05/11/2006 Cardiac cath, L heart LEFT HEART CATH,PERCUTANEOUS October2009 Cardiac cath, L heart PULMONARY FUNCTION TEST 07/02/2004 REPAIR FIRST ABDOMINAL WALL HERNIA 12/18/2007 BP 106/64 Pulse (!) 58 Wt 88.4 kg (194 lb 12.8 oz) SpO2 98% BMI 32.92 kg/m I reviewed the past medical history, family history, social history and surgical history with changes noted above and updated in EMR. IMMUNIZATIONS Prevnar - 10/03/2014 Pneumovax 23 - 10/17/2015, 04/17/2004 Influenza - 01/19/2022 COVID-19 - 05/26/2021, 10/13/2020, 09/15/2020 ROS: General: Generally feels good. Appetite good. Eyes, Ears, nose, throat: Occasional post nasal drip and itchy/dry throat. Occasion rhinorrhea. Denies purulent nasal discharge. Denies epistaxis, hoarseness. Denies vision changes. Cardiac: Denies angina, edema, orthopnea. Resp: See HPI. GI: Denies heartburn, dysphagia, diarrhea. Musculoskeletal: Denies pain. Neuro: Denies headache, focal weakness, tremor. Occasional dizziness with position changes that self-resolves. Skin: Denies rash. Otherwise negative. PHYSICAL EXAMINATION: Gen: No acute distress. Cooperative with examination. HEENT: Normocephalic. Sclera, conjunctiva clear. Oral hygeine and dentition good, dentures in place. No thrush. Resp: No stridor, accessory respiratory muscle use, supra-sternal or intercostal retractions. No wheezes, crackles. CV: Regular rythm. Heart tones S1S2. No carotid bruit. Radial pulses normal. Abd: Not distended. MSK: No kyphoscoliosis. Ext: Warm and well perfused. No clubbing, cyanosis. Mild LE edema. Skin: No rash, ecchymoses. Neuro: Mental status normal. Affect normal. No tremor. DATA: Latest Reference Range & Units 07/26/22 10:07 WBC 3.70 - 11.00 k/uL 7.04 RBC 4.20 - 6.00 m/uL 4.05 (L) Hemoglobin 13.0 - 17.0 g/dL 10.6 (L) Hematocrit 39.0 - 51.0 % 35.4 (L) Platelet Count 150 - 400 k/uL 223 MCV 80.0 - 100.0 fL 87.4 MCH 26.0 - 34.0 pg 26.2 MCHC 30.5 - 36.0 g/dL 29.9 (L) MPV 9.0 - 12.7 fL 10.3 RDW-CV 11.5 - 15.0 % 15.9 (H) (L): Data is abnormally low (H): Data is abnormally high PFT 09/17/2021 PRE-BRONCH POST-BRONCH Pred LLN ULN Actual %Pred Actual %Chng SPIROMETRY FVC (L) 3.16 2.27 4.06 2.85 90 FEV1 (L) 2.36 1.63 3.04 2.01 84 FEV1/FVC 0.75 0.60 0.89 0.71 93 FEF25 (L/sec) 4.34 FEF50 (L/sec) 2.69 0.56 4.81 1.72 64 FEF75 (L/sec) 0.41 0.13 1.17 0.29 72 RMC51-99 (L/sec) 1.72 0.64 3.33 1.04 60 PEF L/s (L/sec) 5.86 3.90 7.83 4.55 77 FIVC (L) 2.74 FIF50 (L/sec) 3.39 PIF (L/sec) 3.53 Time (sec) 8.24 PORFIRIO (L) 0.08 FET PEF (sec) 0.15 CXR 07/12/2022 Interstitial edema with bilateral pleural effusions. Repeat CXR ordered today. Pending 10/15/2022. CT chest 08/11/2017 Curvilinear opacities are visible at the lung bases are probably related to pulmonary fibrosis and/or submental atelectasis. There are no demonstrated pleural abnormality . Echocardiogram 03/31/2022 Normal LV and RV function. EF 60%. Assessment and Plan: 1. Chronic rhinitis - Added loratadine (CLARITIN) 10 mg tablet; Take 1 tablet by mouth once daily as needed for cold/allergy symptoms. FOR ALLERGY SYMPTOMS Dispense: 90 tablet; Refill: 3 2. Chronic bilateral pleural effusions - Shown on CXR from June when he was hospitalized for GI bleed, will repeat CXR today - XR CHEST 2V FRONTAL/LAT; Future 3. COPD with chronic bronchitis (HCC) Patient with a history of chronic bronchitis with normal PFTs. Symptomatically doing well on Breo. - Stable on maintenance Breo Ellipta and as needed albuterol - Will repeat spirometry and diffusion prior to next visit with Dr. Villalpando in 6 months - Instructed patient to call with any issues prior to then - SPIROMETRY BASELINE ONLY; Future - LUNG DIFFUSION CAPACITY (DLCO); Future 4. Gastroesophageal reflux disease, unspecified whether esophagitis present - Continue pantoprazole 6. Edema of both legs - Continue lasix daily as needed - Elevate legs, decrease sodium intake 7. Atrial fibrillation, unspecified type (HCC) - Continue isosorbide and sotalol - Follow up with cardiology in November [facility] in [address] Villalpando and pulmonary function testing This was a shared visit with myself and Susanna Hsieh PA-C. All questions were addressed with the patient and his . CHRIS Jaramillo PA-C documented in this encounterAdena [facility]03-31-2023 Instructions* Patient Instructions* Soha Akhtar APRN.SAND ANALYST - 10/15/2022 10:45 AM EDT Take a Claritin OTC once daily for itchy throat and allergy symptoms. Follow up in [address] Villalpando, PFTs prior. Please stop and get a CXR today before you leave, we will call you if anything is abnormal. We will see you in 6 months, please call us if you need anything before that! It was a pleasure taking care of you! documented in this encounterAdena [facility]03-17-2023 Miscellaneous Notes* Telephone Encounter - Ingrid Prince Pss - 10/01/2022 2:22 PM EDT Spoke to patient who has been scheduled for with Yamilex Hsieh. Patient voiced understanding. * Telephone Encounter - Renée Chavira APRN.SAND ANALYST - 10/01/2022 1:09 PM EDT Patient given one refill. Please assist patient with scheduling an appointment with Susanna for furtherrefills. * Telephone Encounter - Norma Guerrero RN - 10/01/2022 11:33 AM EDT Patient phones requesting refills as follows: Requested Prescriptions Pending Prescriptions Disp Refills fluticasone-vilanterol (BREO ELLIPTA) 100-25 mcg/dose inhaler 3 Each 3 Advised patient he may need appointment first. CAPRICE 09/17/21. Please review and advise. Norma Guerrero RN documented in this encounterAdena [facility]03-09-2023 NoteHNO ID: [id number] Author: Dylon Lubin, NIVIA Service: ? Author Type: Registered Nurse Type: Progress Notes Filed: 09/23/2022 7:01 PM Note Text: INSIGHT CDM TELEPHONIC OUTREACH Provider Action/FYI: CDM: COPD Spk with Pt denies symptoms, or needs. Instructed to call PCP with any changes in condition Pt verbalized understanding and appreciation for call. Contact made with patient: Yes Patient identified by name and . Discussed care with patient It?s nice talking to you again. As a reminder, this is our bi-weekly check-in where I will be asking you questions about your health. This will only take a few minutes of your time. Is this a good time? Yes Symptoms What Chronic Disease(s) does the patient have: COPD Do you check your blood pressures at home? Yes, Enter readings: reported as good Do you have new or worse shortness of breath with activity? No Do you have new or worsening cough? No Do you have new or worsening wheezing? No Do you need to use your rescue (Albuterol) inhaler or nebulizer more often than normal? No Are you having any other symptoms that your PCP needs to know about? No Symptoms: Symptom Escalation ELIA Education Ordered -: No The patient required an escalation for symptom(s)? No Medications Do you have any questions about taking your medication or which medications you should be on? No Do you need any medication refills at this time, including any of the medications you might take only when needed? No Social We would like to make sure you have what you need so that your basic needs are met- including your personal safety, food, housing, transportation and medications? Would you like to speak with a social work wall steamer to help give you support for any of these needs? No It can be normal to feel anxious or down during a time like this. Would you like to talk to a mental health professional about how you have been feeling? No Closing Thank you for taking the time to talk with me today. We want to work with you to ensure that we are keeping your medical condition(s) well-controlled and to keep you healthy and out of the doctor's office or hospital. It?s also not too late for me to sign you up for automated weekly questionnaires through [employer]. This is an easy way for us to stay connected each week. Are you interested? No, I understand. We can always sign you up in the future if you change your mind. Just as a reminder, will continue to call you every other week to check in on your health. Our calls should take 10-15 minutes or less. Remember, if you have concerns in between our calls, please call your PCP's office right away. Thank you. Enter next patient outreach date for two weeks on the same day of the week as today in the Track Pt Outreach and End outreach. Dylon Lubin RN September 23, 2022 6:56 [facility]03-09-2023 NotePatient Outreach ([facility]) DAMON SWAN ([id number]) 1940 Date Time Provider Department 09/23/22 [facility] During your visit today, we recorded the following information about you: Dylon Lubin RN 09/23/2022 7:01 PM Signed INSIGHT CDM TELEPHONIC OUTREACH Provider Action/FYI: CDM: COPD Spk with Pt denies symptoms, or needs. Instructed to call PCP with any changes in condition Pt verbalized understanding and appreciation for call. Contact made with patient: Yes Patient identified by name and . Discussed care with patient It?s nice talking to you again. As a reminder, this is our bi-weekly check-in where I will be asking you questions about your health. This will only take a few minutes of your time. Is this a good time? Yes Symptoms What Chronic Disease(s) does the patient have: COPD Do you check your blood pressures at home? Yes, Enter readings: reported as good Do you have new or worse shortness of breath with activity? No Do you have new or worsening cough? No Do you have new or worsening wheezing? No Do you need to use your rescue (Albuterol) inhaler or nebulizer more often than normal? No Are you having any other symptoms that your PCP needs to know about? No Symptoms: Symptom Escalation ELIA Education Ordered -: No The patient required an escalation for symptom(s)? No Medications Do you have any questions about taking your medication or which medications you should be on? No Do you need any medication refills at this time, including any of the medications you might take only when needed? No Social We would like to make sure you have what you need so that your basic needs are met- including your personal safety, food, housing, transportation and medications? Would you like to speak with a social work wall steamer to help give you support for any of these needs? No It can be normal to feel anxious or down during a time like this. Would you like to talk to a mental health professional about how you have been feeling? No Closing Thank you for taking the time to talk with me today. We want to work with you to ensure that we are keeping your medical condition(s) well-controlled and to keep you healthy and out of the doctor's office or hospital. It?s also not too late for me to sign you up for automated weekly questionnaires through [employer]. This is an easy way for us to stay connected each week. Are you interested? No, I understand. We can always sign you up in the future if you change your mind. Just as a reminder, will continue to call you every other week to check in on your health. Our calls should take 10-15 minutes or less. Remember, if you have concerns in between our calls, please call your PCP's office right away. Thank you. Enter next patient outreach date for two weeks on the same day of the week as today in the Track Pt Outreach and End outreach. Dylon Lubin RN September 23, 2022 6:56 PM Allergies As of Date: 09/23/2022 Noted Allergy Reaction KEITH INHIBITORS 01/12/2013 3 - Cough LYRICA (PREGABALIN) 10/03/2014 1 - Mental Status Change Comments: Causes depression PERCOCET (OXYCODONE-ACETAMINOPHEN)02/27/2010 1 - Mental Status Change Date Reviewed: 07/28/2022 Reviewed by: Arely Mckenna LPN - Fully Assessed Reason for Visit: Community Monitoring Outreach [Other] Prescriptions as of 09/23/2022 - pantoprazole DR (PROTONIX) 40 mg tablet Take 1 tablet by mouth twice daily. - pantoprazole DR (PROTONIX) 40 mg tablet Take 1 tablet by mouth twice daily. - aspirin, enteric coated (ASPIRIN, ENTERIC COATED) 81 mg EC tablet Take 1 tablet by mouth once daily. - apixaban (ELIQUIS) 5 mg tab(s) Take by mouth twice daily. - BREO ELLIPTA 100-25 mcg/dose inhaler USE 1 INHALATION ORALLY ONCE DAILY INSTRUCTED - tamsulosin (FLOMAX) 0.4 mg Take 1 capsule by mouth every evening. - albuterol HFA (PROVENTIL HFA) 90 mcg/actuation inhaler Inhale 2 Puffs as instructed every 4 hours as needed for wheezing/shortness of breath. - nitroglycerin sublingual (NITROQUICK) 0.4 mg SL tablet Dissolve 1 tablet under the tongue every 5 minutes as needed for chest pain. - furosemide (LASIX) 40 mg tablet Take 40 mg by mouth once daily. - isosorbide mononitrate ER (IMDUR) 30 mg 24 hr tablet Take 30 mg by mouth once daily. - atorvastatin (LIPITOR) 80 mg tablet Take 80 mg by mouth daily at bedtime. - sotalol 120 mg ORAL tablet Take 1 tablet by mouth twice daily. Meds Comments as of 01/09/2016: Currently on coumadin - unsure of current dose Pt does not take the Vit b. 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 Contact made with patient: No - Left message Charlee my name is Dylon Lubin RN your Demolition Expert from the [facility] I am callingtoday for your bi-weekly check in. I am sorry I missed your call. I will reach out to you again tomorrow. (if the third call I will reach out to you again next week) Enter next patient outreach date for the following business day using the Track Pt Outreach. End outreach. Dylon Lubin RN September 21, 2022 4:36 PM * Dylon Lubin RN - 09/17/2022 3:04 PM EST [facility]IGHT [facility] TELEPHONIC OUTREACH Provider Action/FYI: CDM: COPD Left a message to verify symptom status, instructed to call PCP with any changes in condition or needs. Contact made with patient: No - Left message Charlee my name is Dylon Lubin RN your Demolition Expert from the [facility] I am callingtoday for your bi-weekly check in. I am sorry I missed your call. I will reach out to you again tomorrow. (if the third call I will reach out to you again next week) Enter next patient outreach date for the following business day using the Track Pt Outreach. End outreach. yDlon Lubin RN September 17, 2022 3:04 PM documented in this encounterAdena [facility]ike [facility] Center02-14-2023 Miscellaneous Notes* Telephone Encounter - Arely Mckenna LPN - 08/31/2022 3:39 PM EST Patient has been identified by name and date of : Yes, Patient phones for refill(s): Requested Prescriptions Pending Prescriptions Disp Refills pantoprazole (PROTONIX) 40 mg tablet 30 tablet 0 Sig: Take 1 tablet by mouth twice daily. Date of last office visit in primary care: 07/28/2022 Medicare Wellness: 11/22/2022 Last 2 Encounter Wt Readings: Date: Wt: 07/28/2022 86.2 kg (190 lb) 05/24/2022 87.5 kg (193 lb) Previous labs/tests for medication: Not applicable Please advise. Thank you. Arely Mckenna LPN * Telephone Encounter - [facility] - 08/31/2022 3:28 PM EST Patient has been identified by name and date of : Yes Requested Prescriptions Pending Prescriptions Disp Refills pantoprazole DR (PROTONIX) 40 mg tablet 30 tablet 0 Sig: Take 1 tablet by mouth twice daily. RX INSTRUCTIONS: Patient aware RX will be sent to pharmacy. No need to notify patient. [facility] documented in this encounterAdena [facility]ike [facility] Center02-10-2023 Miscellaneous Notes* Telephone Encounter - Georgina Snell LPN - 08/27/2022 10:08 AM EST Message left to pts home number with info. In review it appears pt did a get this message already. * Telephone Encounter - Annetta Lepe LPN - 08/26/2022 12:41 PM EST Attempted calling both numbers on file. Preferred number would not go through and alt number after 2 rings phone didn't ring any longer and no answer or message noted. Attempt to call again later. * Telephone Encounter - Annetta Lepe LPN - 08/26/2022 12:40 PM EST ----- Message from Jose Wolfe MD sent at 08/26/2022 12:27 PM EST ----- Anemia improving. Continue care. documented in this encounterAdena Pike Medical Center02-09-2023 History of Present illness Narrative* Dylon Lubin, RN - 08/26/2022 3:10 PM EST INSIGHT CDM TELEPHONIC OUTREACH Provider Action/FYI: Routed updates to Dr. Wolfe Spk with Pt he has intermittent cough, denies Sob or wheezing, or fevers, Pt noted sometimes forgets to take Breo Ellipta Recent Hx Acute GIB, Pt noted he is feeling stronger, Pt reported is scheduled 09/02/22 for GI Ablation, 08/10/22 H/H 11.3/36.[address] Pramod DUNCAN Pt had an episode of dizziness, current BP 120/64, Instructed on fall prevention, and importance offollow up Appt with PCP/ SAND ANALYST for symptom/ condition changes. Pt verbalized understanding. Denies needs. Contact made with patient: Yes Patient identified by name and . Discussed care with patient It s nice talking to you again. As a reminder, this is our bi-weekly check-in where I will be asking you questions about your health. This will only take a few minutes of your time. Is this a good time? Yes Symptoms What Chronic Disease(s) does the patient have: COPD Do you check your blood pressures at home? Yes, Enter readings: 120/64 Do you have new or worse shortness of breath with activity? No Do you have new or worsening cough? Yes Intermittent when he forgets to take his Breo Ellipta inhaler Do you have new or worsening wheezing? No Do you need to use your rescue (Albuterol) inhaler or nebulizer more often than normal? No Are you having any other symptoms that your PCP needs to know about? Yes Symptoms: Episode of Dizziness Symptom Escalation ELIA Education Ordered -: No The patient required an escalation for symptom(s)? No Medications Do you have any questions about taking your medication or which medications you should be on? No Do you need any medication refills at this time, including any of the medications you might take only when needed? No Social We would like to make sure you have what you need so that your basic needs are met- including your personal safety, food, housing, transportation and medications? Would you like to speak with a social work wall steamer to help give you support for any of these needs? No It can be normal to feel anxious or down during a time like this. Would you like to talk to a mental health professional about how you have been feeling? No Closing Thank you for taking the time to talk with me today. We want to work with you to ensure that we arekeeping your medical condition(s) well-controlled and to keep you healthy and out of the doctor's office or hospital. It s also not too late for me to sign you up for automated weekly questionnaires through [employer]. This is an easy way for us to stay connected each week. Are you interested? No, I understand. We can always sign you up in the future if you change your mind. Just as a reminder, will continue to call you every other week to check in on your health. Our calls should take 10-15 minutes or less. Remember, if you have concerns in between our calls, please call your PCP's office right away. Thank you. Enter next patient outreach date for two weeks on the same day of the week as today in the Track PtOutreach and End outreach. Dylon Lubin RN August 26, 2022 3:10 PM documented in this encounterAdena Pike Medical Center01-23-2023 NoteHNO ID: [id number] Author: Christina Diallo PT Service: ? Author Type: Physical Therapist Type: Progress Notes Filed: 08/09/2022 3:25 PM Note Text: 08/09/2022 [facility] PHYSICAL THERAPY DISCONTINUANCE OF CARE Plan of Care Period: Start of Care Date: 04/28/22 Last Visit Date: 05/13/2022 Therapy Program: The following is a summary of the interventions provided for this episode of care; Therapeutic exercise, Neuromuscular re-education, Manual therapy, Therapeutic activities, Gait training, and Patient/Family/Caregiver Education Assessment: Based on most recent visit, patient was progressing as expected toward functional goals based on home exercise program compliance, pain levels, documented subjective information on progress, and documented objective information regarding flexibility, gait, independence in exercise, overall function, and strength . Unable to formally assess goal achievement, as patient has not returned to therapy or scheduled additional follow-up appointments. Reason for Discontinuation of Care: Patient has not returned to therapy or scheduled additional follow-up appointments. Christina Diallo [facility]01-11-2023 History of Present illness Narrative* Jose Wolef MD - 07/28/2022 12:02 PM EST This note was created using NoteWriter. Subjective Damon Swan is a 82 year old male was here with spouse. He became very weak, dyspneic, with what sounded like amaurosis fugax. He was admitted 07/12-07/14 at [facility] for profound anemia from GI blood loss. His aspirin and apixiban were held. Protonix drip was started and he ended up with 4 units of PRBC transfusion. 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 He resumed anticoagulants and discharged on oral pantoprazole twice daily.Capsule endoscopy as an outpatient was planned. Review of Systems Constitutional: Positive for fatigue. Negative for appetite change, chills and fever. Eyes: Negative for visual disturbance. Respiratory: Negative. Cardiovascular: Negative. Gastrointestinal: Negative. Genitourinary: Negative. Neurological: Negative. ACTIVE PROBLEM LIST Coronary Atherosclerosis Copd (Chronic Obstructive Pulmonary Disease) With Chronic Bronchitis (Hcc) Mixed Hyperlipidemia Macular Degeneration (Senile) of Retina, Unspecified Esophageal Reflux Bph With Obstruction/Lower Urinary Tract Symptoms Atrial Fibrillation (Hcc) Rhinitis Actinic Skin Damage Thrombocytopenia (Hcc) Ddd (Degenerative Disc Disease), Lumbar Edema of Both Legs Insomnia Essential Hypertension Impaired Fasting Glucose Obesity, Class I, Bmi 30-34.9 PAST SURGICAL HISTORY Procedure Laterality Date ANGIOPLASTY 08/04/12 Circumflex unsuccessful CABG, ARTERIAL, THREE 03/31/2004 COLONOSCOPY - DIAGNOSTIC 06/1998, 10/2002 COLONOSCOPY FLX DX W/COLLJ SPEC WHEN PFRMD 05/15/08 COLONOSCOPY W/BIOPSY SINGLE/MULTIPLE 10/26/2018 Dr. Nicole Fonseca. Negative for microscopic colitis. ECHO STRESS 10/2007 EGD TRANSORAL BIOPSY SINGLE/MULTIPLE 05/15/08 ESOPHAGOGASTRODUODENOSCOPY TRANSORAL DIAGNOSTIC 06/07/2001 EGD ESOPHAGOGASTRODUODENOSCOPY TRANSORAL DIAGNOSTIC 02/13/2007 EGD ESOPHAGOGASTRODUODENOSCOPY TRANSORAL DIAGNOSTIC 11/10/2011 EGD IMPLANT MESH OPN HERNIA RPR/DEBRIDEMENT CLOSURE 12/18/07 LAPAROSCOPY SURG CHOLECYSTECTOMY 03/2006 Cholecystectomy, lap & umbilical hernia repair LAPS SURG CHOLECYSTECTOMY W/CHOLANGIOGRAPHY 04/04/06 LEFT HEART CATH 08/04/12 subsequent PTCA and CHAD to RCA( [facility]) LEFT HEART CATH,PERCUTANEOUS 05/11/2006 Cardiac cath, L heart LEFT HEART CATH,PERCUTANEOUS October2009 Cardiac cath, L heart PULMONARY FUNCTION TEST 07/02/2004 REPAIR FIRST ABDOMINAL WALL HERNIA 12/18/07 Social History Tobacco Use Smoking status: Former Packs/day: 1.50 Years: 23.00 Pack years: 34.50 Types: Cigarettes Start date: 1958 Quit date: 03/11/1981 Years since quittin.4 Smokeless tobacco: Never Tobacco comments: No household ETS. Substance Use Topics Alcohol use: Yes Alcohol/week: 35.0 standard drinks Types: 14 Cans of Beer (12oz) per week Drug use: No Current Outpatient Medications Medication Sig BREO ELLIPTA 100-25 mcg/dose inhaler USE 1 INHALATION ORALLY ONCE DAILY INSTRUCTED tamsulosin (FLOMAX) 0.4 mg Take 1 capsule by mouth every evening. albuterol HFA (PROVENTIL HFA) 90 mcg/actuation inhaler Inhale 2 Puffs as instructed every 4 hours as needed for wheezing/shortness of breath. nitroglycerin sublingual (NITROQUICK) 0.4 mg SL tablet Dissolve 1 tablet under the tongue every 5 minutes as needed for chest pain. furosemide (LASIX) 40 mg tablet Take 40 mg by mouth once daily. isosorbide mononitrate ER (IMDUR) 30 mg 24 hr tablet Take 30 mg by mouth once daily. atorvastatin (LIPITOR) 80 mg tablet Take 80 mg by mouth daily at bedtime. sotalol 120 mg ORAL tablet Take 1 tablet by mouth twice daily. pantoprazole DR (PROTONIX) 40 mg tablet Take 1 tablet by mouth twice daily. aspirin, enteric coated (ASPIRIN, ENTERIC COATED) 81 mg EC tablet Take 1 tablet by mouth once daily. apixaban (ELIQUIS) 5 mg tab(s) Take by mouth twice daily. No current facility-administered medications for this visit. Objective BP 114/66 (BP Site: Left Arm, BP Position: Sitting, BP Cuff Size: Large Adult) Pulse 68 Temp 36.1 C (96.9 F) (Temporal) Resp 16 Wt 86.2 kg (190 lb) BMI 32.11 kg/m Physical Exam Constitutional: General: He is not in acute distress. Appearance: He is not diaphoretic. HENT: Mouth/Throat: Mouth: Mucous membranes are moist. Eyes: General: No scleral icterus. Conjunctiva/sclera: Conjunctivae normal. Cardiovascular: Rate and Rhythm: Normal rate. Rhythm irregular. Heart sounds: No murmur heard. No gallop. Pulmonary: Effort: Pulmonary effort is normal. Breath sounds: Normal breath sounds. Abdominal: General: There is no distension. Palpations: Abdomen is soft. Tenderness: There is no abdominal tenderness. Musculoskeletal: Right lower leg: No edema. Left lower leg: No edema. Neurological: General: No focal deficit present. Mental Status: He is alert. Motor: Weakness present. Gait: Gait normal. Component Latest Ref Rng & Units 07/26/2022 WBC 3.70 - 11.00 k/uL 7.04 RBC 4.20 - 6.00 m/uL 4.05 (L) Hemoglobin 13.0 - 17.0 g/dL 10.6 (L) Hematocrit 39.0 - 51.0 % 35.4 (L) MCV 80.0 - 100.0 fL 87.4 MCH 26.0 - 34.0 pg 26.2 MCHC 30.5 - 36.0 g/dL 29.9 (L) RDW-CV 11.5 - 15.0 % 15.9 (H) Platelet Count 150 - 400 k/uL 223 MPV 9.0 - 12.7 fL 10.3 Absolute nRBC <0.01 k/uL <0.01 Assessment and Plan 1. Acute upper GI bleed - ICD9: 578.9, ICD10: K92.2 (primary diagnosis) Treated. - CBC 2. GAVE (gastric antral vascular ectasia) - ICD9: 537.82, ICD10: K31.[address] Anais Benavidez. 3. Adenomatous polyp of transverse colon - ICD9: 211.3, ICD10: D12.[address] Benavidez 4. Atrial fibrillation, unspecified type (HCC) - ICD9: 427.31, ICD10: I48.91 Patient was switched to apixiban few months ago, patient assistance. 5. Generalized weakness - ICD9: 780.79, ICD10: R53.1 Home PT ongoing. Jose Wolfe MD documented in this encounterAdena Pike Medical Center01-11-2023 Miscellaneous Notes* Telephone Encounter - Jose Wolfe MD - 07/28/2022 7:04 AM EST Noted. * Telephone Encounter - Maria L Davis LPN - 07/27/2022 2:48 PM EST Magui from [facility] calling with change in PT plan of care. Patient had missed 2 visits last week so adding a week, 2 visits weekly for this week and next week. documented in this encounterAdena Pike Medical Center01-06-2023 History of Present illness Narrative* Dylon Lubin RN - 07/23/2022 3:54 PM EST INSIGHT CDM TELEPHONIC OUTREACH Provider Action/FYI: Routed updates to Dr. Aiden Ku with Pt he reports Admitted to [facility] 07/12/22 for Anemia, GI Bleed, Pt reports received 4 units of blood for Hgb 5.0, after infusion Hgb 10.5. Capsule endoscopy completed today Pt denies CP, Sob, denies lightheadedness or dizziness, denies bleeding from any site, BP 120/60 s,awaiting schedule for IV Iron infusions. Pt reports improved from discharge, denies needs 07/28/[address] Wolfe Contact made with patient: Yes Patient identified by name and . Discussed care with patient It s nice talking to you again. As a reminder, this is our bi-weekly check-in where I will be asking you questions about your health. This will only take a few minutes of your time. Is this a good time? Yes Symptoms What Chronic Disease(s) does the patient have: COPD Do you check your blood pressures at home? Yes, Enter readings: 120/60's Do you have new or worse shortness of breath with activity? No Do you have new or worsening cough? No Do you have new or worsening wheezing? No Do you need to use your rescue (Albuterol) inhaler or nebulizer more often than normal? No Are you having any other symptoms that your PCP needs to know about? Yes Symptoms: N/A Symptom Escalation ELIA Education Ordered -: No The patient required an escalation for symptom(s)? No Medications Do you have any questions about taking your medication or which medications you should be on? No Do you need any medication refills at this time, including any of the medications you might take only when needed? No Social We would like to make sure you have what you need so that your basic needs are met- including your personal safety, food, housing and medications? Would you like to speak with a social work wall steamer to help give you support for any of these needs? No It can be normal to feel anxious or down during a time like this. Would you like to talk to a mental health professional about how you have been feeling? No Closing Thank you for taking the time to talk with me today. We want to work with you to ensure that we arekeeping your medical condition(s) well-controlled and to keep you healthy and out of the doctor's office or hospital. It s also not too late for me to sign you up for automated weekly questionnaires through [employer]. This is an easy way for us to stay connected each week. Are you interested? No, I understand. We can always sign you up in the future if you change your mind. Just as a reminder, will continue to call you every other week to check in on your health. Our calls should take 10-15 minutes or less. Remember, if you have concerns in between our calls, please call your PCP's office right away. Thank you. Enter next patient outreach date for two weeks on the same day of the week as today in the Track PtOutreach and End outreach. Dylon Lubin RN July 23, 2022 3:54 PM documented in this encounterAdena Pike Medical Center12-30-2022 Miscellaneous Notes* Telephone Encounter - Alessandra Chao RN - 07/16/2022 3:54 PM EST Magui from [facility] called and is notified of providers message. She voices understanding. Alessandra Chao RN * Telephone Encounter - Jose Wolfe MD - 07/16/2022 3:15 PM EST Okay. * Telephone Encounter - Maria L Davis LPN - 07/15/2022 1:43 PM EST Magui from [facility] calling with PT plan of care, 1 visit weekly for 1 week, then 2 visits weekly for 2 weeks working on lower extremity strengthening, endurance, functional mobility trainingand balance. documented in this encounterAdena Pike Medical Center12-28-2022 Miscellaneous Notes* Telephone Encounter - Coreen Escoto LPN - 07/14/2022 2:41 PM EST Patient notified and voiced his understanding. * Telephone Encounter - Jose Wolfe MD - 07/14/2022 2:18 PM EST ASSESSMENT/PLAN: 1. Gastrointestinal hemorrhage, unspecified gastrointestinal hemorrhage type - ICD9: 578.9, ICD10: K92.2 - CBC next week. Jose Wolfe MD * Telephone Encounter - BRICE Hamilton - 07/14/2022 12:39 PM EST [facility] reached out to make a hospital follow up for patient, and he needs a CBC recheck for next week.Patient was in hospital from 07/12-07/14 for a GI Bleed and anemia. Please follow up with patient once order is placed for CBC. BRICE Hamilton July 14, 2022 12:40 PM documented in this encounterAdena Pike Medical Center12-07-2022 Miscellaneous Notes* Telephone Encounter - Sunita Dunn LPN - 06/23/2022 8:53 AM EST Spoke with pt and information listed below given. Pt verbalizes understanding. Transferred to director of primary to get Wellness apt booked. Sunita Dunn LPN * Telephone Encounter - Sun Gan APRN.CNP - 06/22/2022 11:45 AM EST Patient due for Medicare wellness and routine follow-up in July, please schedule Sun Gan APRN.CNP * Telephone Encounter - Arely Mckenna LPN - 06/21/2022 7:06 PM EST Patient has been identified by name and date of : Yes Patient phones for refill(s): Requested Prescriptions Pending Prescriptions Disp Refills pantoprazole DR (PROTONIX) 40 mg tablet 90 tablet 3 Sig: Take 1 tablet by mouth once daily. Discontinue ranitidine, omeprazole Date of last office visit in primary care: 03/19/2022 No future appt scheduled. Last 2 Encounter Wt Readings: Date: Wt: 05/24/2022 87.5 kg (193 lb) 09/17/2021 88.9 kg (196 lb) Previous labs/tests for medication: Not applicable Please advise. Thank you. Arely Mckenna LPN * Telephone Encounter - Jessica Bearden [facility] - 06/21/2022 3:38 PM EST Patient has been identified by name and date of : Yes Requested Prescriptions Pending Prescriptions Disp Refills pantoprazole DR (PROTONIX) 40 mg tablet 90 tablet 3 Sig: Take 1 tablet by mouth once daily. Discontinue ranitidine, omeprazole RX INSTRUCTIONS: Patient aware RX will be sent to pharmacy. No need to notify patient. Jessica Bearden [facility] Electronically signed by Jessica [facility] at 06/21/2022 3:41 PM EST documented in this encounterAdena Pike Medical Center12-06-2022 History of Present illness Narrative* Dylon Lubin RN - 06/22/2022 1:26 PM EST INSIGHT CDM TELEPHONIC OUTREACH Provider Action/FYI: CDM: COPD Spk with Pt he noted chronic unchanged Sob, Am seems to be more pronounced when he wakes up with mucous in his chest which clears after coughing, denies wheezing or fever, denies illness. Instructed to make Appt with PCP/ Pulmonology for new or worsening symptoms or condition changes, Pt verbalized understanding and appreciation for the call. Contact made with patient: Yes Patient identified by name and . Discussed care with patient It s nice talking to you again. As a reminder, this is our bi-weekly check-in where I will be asking you questions about your health. This will only take a few minutes of your time. Is this a good time? Yes Symptoms What Chronic Disease(s) does the patient have: COPD Do you check your blood pressures at home? Yes, Enter readings: Not available Do you have new or worse shortness of breath with activity? No Do you have new or worsening cough? No Do you have new or worsening wheezing? No Do you need to use your rescue (Albuterol) inhaler or nebulizer more often than normal? No Are you having any other symptoms that your PCP needs to know about? No Symptom Escalation The patient required an escalation for symptom(s)? No Medications Do you have any questions about taking your medication or which medications you should be on? No Do you need any medication refills at this time, including any of the medications you might take only when needed? No Social We would like to make sure you have what you need so that your basic needs are met- including your personal safety, food, housing and medications? Would you like to speak with a social work wall steamer to help give you support for any of these needs? No It can be normal to feel anxious or down during a time like this. Would you like to talk to a mental health professional about how you have been feeling? No Closing Thank you for taking the time to talk with me today. We want to work with you to ensure that we arekeeping your medical condition(s) well-controlled and to keep you healthy and out of the doctor's office or hospital. It s also not too late for me to sign you up for automated weekly questionnaires through [employer]. This is an easy way for us to stay connected each week. Are you interested? No, I understand. We can always sign you up in the future if you change your mind. Just as a reminder, will continue to call you every other week to check in on your health. Our calls should take 10-15 minutes or less. Remember, if you have concerns in between our calls, please call your PCP's office right away. Thank you. Enter next patient outreach date for two weeks on the same day of the week as today in the Track PtOutreach and End outreach. Dylon Lubin RN June 22, 2022 1:26 PM documented in this encounterAdena Pike Medical Center11-08-2022 Miscellaneous Notes* Telephone Encounter - Dede Marie - 05/25/2022 8:09 AM EST Patient given results and verbalized understanding of instructions given. Dede Marie * Telephone Encounter - Cara Adan APRN.CNP - 05/25/2022 7:46 AM EST Negative for flu and COVID please notify thank you documented in this encounterAdena Pike Medical Center11-07-2022 History of Present illness Narrative* Rin Dixon PA-C - 05/24/2022 10:42 AM EST 05/24/2022 Patient presents with: Chest Congestion: cough x last night SUBJECTIVE: This is a 82 year old with PMH COPD that is here today for Complaint(s) of cough and chest congestion x last night. Described feeling some heartburn last night. He does take protonix daily. Denies changes in diet. States when he got up out of bed and walked around it improved. Denies any chest pain with exertion. Noted some SOB last night when he was having coughing episode. He also noticed some wheezing. Denies fever/chills, vomiting, diarrhea, leg swelling different than baseline,no calf pain. + PMH CAD and afib. 2003 had a bypass. Currently on Xarelto and follows with Dr. Jasso for cardiology. Denies any chest pain, pressure, SOB. Did not take nitro. Denies any symptoms with exertion. Mild cough and rhinorrhea persist. PAST MEDICAL HISTORY Diagnosis Date Abdominal pain, right upper quadrant Acute gastritis without mention of hemorrhage Acute, but ill-defined, cerebrovascular disease 02/2007 ASTHMA UNSPECIFIED 08/15/2006 Atrial fibrillation (HCC) 11/24/2009 Chest pain, unspecified CHRONIC AIRWAY OBSTRUCTION NEC 08/15/2006 CORONARY ATHEROSCLER UNSPEC VESSEL 03/25/2005 Coronary atherosclerosis of [place] coronary artery CVA (cerebral vascular accident) (HCC) 1999 DDD (degenerative disc disease), lumbar 07/18/2013 Dr. Gates, [facility]. Dr. Mondragon. Pain Management. Depression 06/09/2011 Diaphragmatic hernia without mention of obstruction or gangrene Diaphragmatic hernia without mention of obstruction or gangrene External hemorrhoids without mention of complication Flatulence, eructation, and gas pain Hypertrophy of prostate with urinary obstruction and other lower urinary tract symptoms (LUTS) Impaired fasting glucose 10/17/2015 Incisional hernia without mention of obstruction or gangrene 11/22 Legal blindness, as defined in [place] Reflux esophagitis Thrombocytopenia (HCC) 09/26/2014 Transient cerebral ischemia 12/09/2017 Unspecified constipation Unspecified hyperplasia of prostate with urinary obstruction and other lower urinary tract symptoms(LUTS) 08/15/2006 ALLERGIES Keith Inhibitors, Lyrica [Pregabalin], and Percocet [Oxycodone-Acetaminophen] MEDICATIONS Current Outpatient Medications Medication Sig BREO ELLIPTA 100-25 mcg/dose inhaler USE 1 INHALATION ORALLY ONCE DAILY INSTRUCTED tamsulosin (FLOMAX) 0.4 mg Take 1 capsule by mouth every evening. albuterol HFA (PROVENTIL HFA) 90 mcg/actuation inhaler Inhale 2 Puffs as instructed every 4 hours as needed for wheezing/shortness of breath. nitroglycerin sublingual (NITROQUICK) 0.4 mg SL tablet Dissolve 1 tablet under the tongue every 5 minutes as needed for chest pain. pantoprazole DR (PROTONIX) 40 mg tablet Take 1 tablet by mouth once daily. Discontinue ranitidine, omeprazole furosemide (LASIX) 40 mg tablet Take 40 mg by mouth once daily. isosorbide mononitrate ER (IMDUR) 30 mg 24 hr tablet Take 30 mg by mouth once daily. rivaroxaban (XARELTO) 20 mg tablet Take 20 mg by mouth daily with dinner. atorvastatin (LIPITOR) 80 mg tablet Take 80 mg by mouth daily at bedtime. sotalol 120 mg ORAL tablet Take 1 tablet by mouth twice daily. No current facility-administered medications for this visit. SOCIAL HISTORY Social History Tobacco Use Smoking status: Former Packs/day: 1.50 Years: 23.00 Pack years: 34.50 Types: Cigarettes Start date: 1958 Quit date: 03/11/1981 Years since quittin.2 Smokeless tobacco: Never Tobacco comments: No household ETS. Substance Use Topics Alcohol use: Yes Alcohol/week: 35.0 standard drinks Types: 14 Cans of Beer (12oz) per week Drug use: No REVIEW OF SYSTEMS See HPI OBJECTIVE: BP 112/64 Pulse 70 Temp 36.3 C (97.4 F) Resp 16 Wt 87.5 kg (193 lb) SpO2 97% BMI 32.62kg/m APPEARANCE Well appearing, alert, in no acute distress, well-hydrated, well nourished. EYES PERRLA, conjunctiva and sclera normal. EARS External ears normal, canals clear. TMs normal WALDO . Mucosa normal. No drainage or sinus tenderness. THROAT normal, no erythema NECK Supple, no adenopathy; HEART RRR with normal S1 and S2, LUNG clear to auscultation, No wheezing, rhonchi, rales. EXTREMITIES No edema, no Calf TTP. Negative Homans'. ASSESSMENT/PLAN: 1. SOB (shortness of breath) - ICD9: 786.05, ICD10: R06.02 (primary diagnosis) ECG today with some nonspecific ST T wave changes anterolateral leads Reviewed with Patient's cardiology office, HYPERTRICHOLOGIST, slight change form previous ECG- Advised that they will assume care and order stat troponins, patient to have completed today after our OV. Patient is asymptomatic other than slight cough. No chest pain, SOB, dizziness. will drive him to lab at [facility] Reviewed red flags and when to seek care sooner in ER The patient indicates understanding of these issues and agrees with the plan. Will schedule f/u with cardiology office to discuss stress testing if troponin negative, their office will refer to ED ifposiitve. Patient understands. - ECG COMPLETE - COVID WITH FLUA+B, ROUTINE 2. Acute cough - ICD9: 786.2, ICD10: R05.1 Possible viral etiology Discussed GERD, continue protonix, f/u with PCP if symptoms persisting - COVID WITH FLUA+B, ROUTINE The patient indicates understanding of these issues and agrees with the plan. Rin Dixon PA-C documented in this encounterA[facility]11[facility] History of Present illness Narrative* Tristian Monique RN - 05/21/2022 2:36 PM EDT INSIGHT [facility] TELEPHONIC OUTREACH Provider Action/FYI: Call to Pt left a message to verify COPD symptom status and needs. Contact made with patient: No - Left message Hello my name is Dylon Lubin RN your Demolition Expert from the [facility] I am callingtoday for your bi-weekly check in. I am sorry I missed your call. I will reach out to you again tomorrow. (if the third call I will reach out to you again next week) Enter next patient outreach date for the following business day using the Track Pt Outreach. End outreach. Dylon Lubin RN May 21, 2022 2:36 PM documented in this encounterAdena [facility]10-27-2022 History of Present illness Narrative* Christina Diallo, PT - 05/13/2022 11:46 AM EDT Episode Visit Count: 4 Therapist That Will Accept/Oversee The Plan Of Care: Christina Jones Start of Care Date: 04/28/22 Onset Date: 03/29/22 Plan of Care Certification Date: 04/28/22 Next Certification Due Date: 06/23/22 REHABILITATION AND SPORTS THERAPY PHYSICAL THERAPY TREATMENT NOTE ASSESSMENT: Damon Parrgulshan tolerated the session with decreased symptoms. He demonstrated improvements in ROM, flexibility, gait and activity tolerance. The patient will continue to benefit from ongoing skilled physical therapy to progress toward set goals. PLAN FOR NEXT VISIT: reassess if pt returns SUBJECTIVE: Patient Reason for Visit: still doing well, reports minimal pain foot pain over the past few days (even in the morning). thinks he's probably ready to be done with PT (we agreed to leave chart open for a month of 2 if he needs to return) Pain: Pain Pain Level: 3 Pain Location: Heel - Right Description: Aching Frequency: Intermittent OBJECTIVE MEASURES WITH LEVEL OF FUNCTION: LE AROM R Ankle Dorsiflexion: 5 Degrees L Ankle Dorsiflexion: 5 Degrees LE Flexibility R Hamstring Flexibility: mild tightness, 75-80 degrees SLR L Hamstring Flexibility: mild tightness, 75-80 degrees SLR R Gastrocnemius Flexibility: mild tightness R > L LE Strength R LE Strength: grossly 4+ to 5/5 L LE Strength: grossly 4+ to 5/5 Functional Strength R Single Leg Heel Raise: 10 L Single Leg Heel Raise: 10 Gait Gait: Independent Gait Device: None Gait Observation: normal gait Stairs: Independent Stairs: 10 steps reciprocal without pain or difficulty Balance Static Standing Balance: Narrow Base of Support;Tandem Stance;Single Leg Stance Narrow Base of Support: Good Tandem Stance: > 30 seconds Single Leg Stance: 20-30 seconds R/L Functional Performance Test Results Assistive Device: None Timed Up and Go (sec): 10 sec TREATMENT: Therapeutic Exercise: 1: recheck. discussed progress & deficits, plans & options for PT 2: HS stretch supine L/R 3: standing heel raises 10xB, SL 10xR/L 4: B calf stretch on slant board x1' 5: reviewed standing calf stretch 6: HS stretch long-sit L/R 7: reviewed HEP Skilled Intervention: Patient was educated in proper exercise technique and purpose for exercises. Skilled judgment was provided in selection of appropriate interventions. Correct performance of therapeutic exercises was facilitated with verbal and visual cuing. Educated patient on rationale for performing exercises in regards to increase ease of ADL and ROM and function . Patient education as noted. Neuromuscular Re-Education: 1: static stance with manual perturbations: normal AGATA & narrow AGATA 2: tandem & SLS activities Skilled Intervention: Skilled judgment used to assess appropriate program for balance and coordination activity. Billing Therapeutic Exercise Treatment Minutes: 35 Neuromuscular Re-Education Treatment Minutes: 5 Total Treatment Time Minutes (timed/untimed): 40 Christina Diallo PT documented in this encounterAdena [facility]10-18-2022 History of Present illness Narrative* Nolan Carney, ASSET PROTECTION PROFESSIONAL - 05/04/2022 1:35 PM EDT Episode Visit Count: 2 Therapist That Will Accept/Oversee The Plan Of Care: Christina Jones Start of Care Date: 04/28/22 Onset Date: 03/29/22 Plan of Care Certification Date: 04/28/22 Next Certification Due Date: 06/23/22 Patient Identified by Name and Date of : Yes REHABILITATION AND SPORTS THERAPY PHYSICAL THERAPY TREATMENT NOTE ASSESSMENT: Damon Parrgulshan tolerated the session with decreased symptoms and expected muscle soreness. He demonstrated improvements in gait with heel strike and toe off with verbal cues . The patient will continue to benefit from ongoing skilled physical therapy to progress toward set goals. PLAN FOR NEXT VISIT: promote increased heel strike and toe off bilaterally, check str in plantar surface right SUBJECTIVE: Patient Reason for Visit: new shoes helped my right foot pain Pain: Pain Pain Level: 4 Pain Location: Foot - Right Description: Aching;Sore;Tightness Frequency: Intermittent;Walking Post Treatment Pain Post Treatment Pain Level: 2 Post Treatment Pain Location: Foot - Right Post Treatment Pain Description: Aching Post Treatment Symptoms: looser OBJECTIVE MEASURES WITH LEVEL OF FUNCTION: TREATMENT: Therapeutic Exercise: 1: long sitting manual calf and heel cord stretches 30 sec x 2 each 2: long sitting 4 way right ankle PF/DF inversion /eversion green tb 10 x each 3: *standing doorway calf stretch right /left 15 sec x 21 4: *standing toe scrunch with eversion to increase arch 5 second hold x 5 x 2 5: *standing back to wall bilateral great toe extension with ankle dorsiflexion 10 x 2 Skilled Intervention: Patient was educated in proper exercise technique and purpose for exercises. Reviewed and educated patient on additions/changes for home exercise program as above (*). Skilled judgment was provided in selection of appropriate interventions. Provided written instruction for home exercise program to facilitate proper performance and compliance. Patient education as noted. Manual Therapy: 1: stm of right plantar fascia 5 min Skilled Intervention: Manual skills to improve joint mobility, ROM, and decrease pain. Utilized anatomy knowledge of the therapist, and assessment of patient's response to intervention. Gait Trainin: gait with increased stride length to promote heel strike and toe off bilaterrally 2: educated patient on foot mechanics through gait cycle Skilled Intervention: verbal cues Billing Therapeutic Exercise Treatment Minutes: 30 Therapeutic Activity Treatment Minutes: 5 Gait Training Treatment Minutes: 10 Total Treatment Time Minutes (timed/untimed): 45 Nolan Carney PTA documented in this encounterAdena [facility]10-17-2022 History of Present illness Narrative* Tristian Monique RN - 05/03/2022 10:07 AM EDT [facility] TELEPHONIC OUTREACH Provider Action/FYI: Call from Pt he denies new or worsening COPD or other symptoms or needs Contact made with patient: Yes Patient identified by name and . Discussed care with patient It s nice talking to you again. As a reminder, this is our bi-weekly check-in where I will be asking you questions about your health. This will only take a few minutes of your time. Is this a good time? Yes Symptoms What Chronic Disease(s) does the patient have: COPD Do you check your blood pressures at home? Yes, Enter readings: Not available Do you have new or worse shortness of breath with activity? No Do you have new or worsening cough? No Do you have new or worsening wheezing? No Do you need to use your rescue (Albuterol) inhaler or nebulizer more often than normal? No Are you having any other symptoms that your PCP needs to know about? No Symptom Escalation The patient required an escalation for symptom(s)? No Medications Do you have any questions about taking your medication or which medications you should be on? No Do you need any medication refills at this time, including any of the medications you might take only when needed? No Social We would like to make sure you have what you need so that your basic needs are met- including your personal safety, food, housing and medications? Would you like to speak with a social work wall steamer to help give you support for any of these needs? No It can be normal to feel anxious or down during a time like this. Would you like to talk to a mental health professional about how you have been feeling? No Closing Thank you for taking the time to talk with me today. We want to work with you to ensure that we arekeeping your medical condition(s) well-controlled and to keep you healthy and out of the doctor's office or hospital. It s also not too late for me to sign you up for automated weekly questionnaires through [employer]. This is an easy way for us to stay connected each week. Are you interested? No, I understand. We can always sign you up in the future if you change your mind. Just as a reminder, will continue to call you every other week to check in on your health. Our calls should take 10-15 minutes or less. Remember, if you have concerns in between our calls, please call your PCP's office right away. Thank you. Enter next patient outreach date for two weeks on the same day of the week as today in the Track PtOutreach and End outreach. Dlyon Lubin RN May 03, 2022 10:07 AM * Tristian Monique RN - 05/03/2022 8:25 AM EDT INSIGHT [facility] TELEPHONIC OUTREACH Provider Action/FYI: Called Pt related to COPD or other symptoms, unable to leave a message. Contact made with patient: No - Unable to leave message Entered next patient outreach date for the following business day, if third call please enter next outreach date for one week in the Track Pt. 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 He presents with impairments in balance, coordination, flexibility, gait, joint mobility, overall function, and patient reported outcome measures. PROMIS (Patient-Reported Outcomes Measurement Information System) scores were reviewed and physical function domain identified as a rehabilitation concern. Prognosis for therapy is Good due to: current objective clinical presentation;good overall health status;positive past response to therapy;within-session changes;good support system/ coping skills . He will benefit from skilled therapy services to meet the goals established for this plan of care as noted below and return to PLOF with decreased pain. Goals for Episode of Care: created on 04/28/22 through 06/23/22 [place] in home exercise program. Patient will increase active ROM of R DF to 0 to allow pt to to improve gait mechanics / gait pattern . Patient will demonstrate increase in R DF/PF/INV/EV strength to 5/5 during manual muscle testing inorder to improve function for leisure / recreation skills and ambulation. Patient will increase flexibility of hamstrings and gastrocnemius to equal unaffected extremity/side and WNL to improve mechanics and decrease pain. Perform ambulation with decreased report of symptoms/pain in 4 weeks. Patient will Improve Timed Up and Go to 14 seconds to demonstrate decreased risk of falling. Patient Goals: Be able to walk again without this foot hurting so bad. Planned Interventions, Frequency, and Duration: Current Frequency: 2x/week Duration: 8 weeks Total Number of Visits Planned: 16 Planned Treatment Interventions: Therapeutic exercise (38187);Neuromuscular re- education (37421);Manual therapy (49515);Therapeutic activities (61957);Self- nursing home management (87014);Gait Training (01512);Patient/Family/Caregiver Education;Body Mechanics Training;Orthosis / DME PLAN FOR NEXT VISIT: ROM/strengthening/ manual therapy as tolerated to R foot/ankle, discuss footwear and insoles Patient demonstrates good understanding of plan of care and treatment. The above goals and plan of care were discussed and agreed upon by patient/family. SUBJECTIVE: Damon Swan is a 82 year old male seen today for patient reports that one morning he woke up with sharp R foot pain. No mechanism of injury. Reports significant difficulty walking, unable to walk without shoes. Went to doctor who recommended PT to decrease pain. Patient Goals: Be able to walk again without this foot hurting so bad. Functional Limitations: walking;walking in the house;walking in the community;stair negotiation;physical activities;recreational activities;weight bearing Prior Level of Function: Independent without limitations Relevant History Past Relevant Medical Conditions: Atrial Fibrillation;Anemia;Arthritis;Cancer;Cardiac;Cerebral Vascular Accident;Falls;Hypertension;Headaches Right or Left Handed: Right Employment: Retired Hobbies / Interests: Yardwork Home Environment Patient Lives With: Spouse Assistance Available: 24 Hour Intake Information: Prescription present Previous Treatment: Exercises per physician;Ice Falls Interview: Two or more falls in the last year Falls Intervention: More thorough falls assessment to be performed Aquatic Screen: No Pain: Pain Pain Level: 5 Pain Location: Foot - Right Description: Sore;Aching;Shooting;Throbbing;Sharp Frequency: Walking (with any weight bearing) Post Treatment Pain Post Treatment Pain Level: 4 Post Treatment Pain Location: Foot - Right Post Treatment Pain Description: Aching Post Treatment Symptoms: Improved pain with addition of arch supports. Recommendation for one 1/2 size bigger footwear to accommodate for insoles given to patient by doctor. PROMIS Scales Higher is Better 06/08/2021 04/28/2022 Phys Func - Score 44 (mild dysfunction) 38 (moderate dysfunction) Phys Func - Percentile 27 % 12 % Social Roles - Score 45 (within normal limits) - Social Role - Percentile 31 % - GH Physical - Score 37.4 (Fair) Incomplete GH Physical - Percentile 10 % - GH Mental - Score 43.5 (Good) 43.5 (Good) GH Mental - Percentile 26 % 26 % Self-Eff Symptom - Score 45 (Average) 40 (Average) Self-Eff Symptom - Percentile 31 % 16 % T-scores: mean of general population = 50. 5 points is clinically meaningfully difference Percentiles provide an indication of how the patient's score ranks in relation to the general population. Higher percentile rankings indicate better function/quality of life. 50th percentile is the average of the general population and indicates half of respondents had a worse score. Lower is Better 06/08/2021 Fatigue - Score 55 (within normal limits) Fatigue - Percentile 31 % T-scores: mean of general population = 50. 5 points is clinically meaningfully difference Percentiles provide an indication of how the patient's score ranks in relation to the general population. Higher percentile rankings indicate better function/quality of life. 50th percentile is the average of the general population and indicates half of respondents had a worse score. OBJECTIVE MEASURES WITH LEVEL OF FUNCTION: Posture / Alignment Posture: Forward head;Rounded shoulders Ankle Observations Weight Bearing Status: WBAT R Ankle Palpation Tenderness: Plantar fascia;Comments R Ankle Palpation Tenderness Comments: Calcaneus, gastrocnemius insertion point R Foot Observations: No obvious swelling, redness noted. Tenderness between the 2nd and 3rd metatarsal heads, tenderness along the sesamoid bones of the first metatarsal. No tenderness to palpation on the digits Sensation - Lower Extremity LE Light Touch Sensation: Grossly Intact LE AROM R LE AROM: Grossly WFL, limited hamstring length, gastrocnemius length with pain at end ranges L LE AROM: WFL R Ankle Dorsiflexion: -11 Degrees R Ankle Plantar Flexion: 40 Degrees R Ankle Inversion: 18 R Ankle Eversion: 16 L Ankle Dorsiflexion: -6 Degrees L Ankle Plantar Flexion: 40 Degrees L Ankle Inversion: 20 L Ankle Eversion: 16 LE PROM R LE PROM: Painful end range hip flexion, no pain with ER/IR, knee flexion R Ankle Dorsiflexion: -5 Degrees R Ankle Inversion: 18 Degrees R Ankle Eversion: 16 Degrees L Ankle Dorsiflexion: 0 Degrees L Ankle Inversion: 22 Degrees L Ankle Eversion: 18 Degrees LE Flexibility Flexibility: Hamstring Flexibility;Gastrocnemius Flexibility;Ankle Dorsiflexion;Hip Adductor R Hamstring Flexibility: Moderate limitation L Hamstring Flexibility: moderate limitation R Adductor Flexibility: minor limitation L Adductor Flexibility: minor limitation R Gastrocnemius Flexibility: moderate limitation L Gastrocnemius Flexibility: mild limitation R Ankle Dorsiflexion Flexibility: moderate limitation L Ankle Dorsiflexion Flexibility: mild limitation LE Joint Mobility Joint Mobility Comment: WFL joint play for R foot, good first ray movement without pain, metatarsaljoint play appears WFL. LE Strength R Hip Flexion (L2): 4-/5 R Hip ABduction: 4-/5 R Hip ADduction: 4+/5 R Knee Extension (L3): 5/5 R Knee Flexion: 5/5 R Ankle Dorsiflexion (L4): 4/5 (limited by pain) R Ankle Plantar Flexion: 5/5 R Ankle Plantarflexion Functional Strength (S1): (unable to perform single limb heel raise) R Ankle Inversion: 4/5 R Ankle Eversion: 4/5 R Great Toes Extension (L5, S1): 4+/5 Functional Strength R Single Leg Heel Raise: unable due to pain/weakness L Single Leg Heel Raise: unable Gait Gait: Modified Independent Gait Distance (feet): 50 Gait Device: None Gait Deviations: Right Lower Extremity Gait Deviations Right Lower Extremity: Heel strike during initial stance decreased;Hip Hike (decreased anterior translation of the tibia during stance) Gait Observation: Increased R out-toeing during stance, L trunk lean during R swing/ hip hiking R, able to maintain longitudinal arch during WB Balance Dynamic Standing Balance: Comments (Increased difficulty with single limb tasks and ambulation without footwear du eto pain) Functional Performance Test Results Assistive Device: None Timed Up and Go (sec): 40 sec Education: Education Learning Preferences: Demonstration;Performance Barriers: None Learning/educational needs: Safety;Home exercise program;Gait Training;Plan of Care Education Provided: Yes, see treatment interventions for education provided Education Provided To: Patient;Family Education Mode/Type: Demonstration;Explanation/Discussion Response to Education/Teach Back: States/Identifies TREATMENT: PT Treatment Interventions: Therapeutic Exercise;Manual Therapy;Therapeutic Activity Evaluation Evaluation Therapeutic Exercise: 1: *Long sitting hamstring stretching to R side, left LE off bed, x 30 seconds x 3 bouts 2: *Ankle 4-way green t-band x 10 reps each direction 3: *Towel calf self-stretch x 30 seconds x 3 4: *Education regarding progression of HEP as tolerated Skilled Intervention: Patient was educated in proper exercise technique and purpose for exercises. Reviewed and educated patient on additions/changes for home exercise program as above (*). Reviewed and educated patient on additions/changes for home exercise program including hamstring and gastrocnemius stretching and beginning strengthening of the ankle complex. Skilled judgment was provided in selection of appropriate interventions. Patient education as noted. Therapeutic Activity: 1: Discussion regarding POC, proper footwear that supports the arch as well as fits his insoles given to him by his doctor. Current toe box on shoes is too tight causing disruption of digit placement, and the shoes are too tight for placement of insoles. Recommendation for patient to be fitted by specialty shoe store in [place] that accommodates his insoles. Recommendation for New Balance, [employer]ics,or [employer] for new footwear. 2: Continued use of frozen water bottle massage in AM/ PM and after exercises. Tennis ball for targeted tissue mobilization. Skilled Intervention: Education for need for purchase of new footwear that fit his insoles due to significant improvement in R foot pain when therapist applied size 4 insoles this date. Billing * Evaluation Low Complexity: 1 Unit Therapeutic Exercise Treatment Minutes: 10 Therapeutic Activity Treatment Minutes: 5 Total Treatment Time Minutes (timed/untimed): 58 Yamilex Fonseca PT documented in this encounterAdena [facility]08-22-2022 History of Present illness Narrative* Tristian Monique RN - 03/08/2022 3:46 PM EDT INSIGHT [facility] TELEPHONIC OUTREACH Provider Action/FYI: Spk with Pt, he denies new or worsening COPD symptoms or needs. Contact made with patient: Yes Patient identified by name and . Discussed care with patient It s nice talking to you again. As a reminder, this is our bi-weekly check-in where I will be asking you questions about your health. This will only take a few minutes of your time. Is this a good time? Yes Symptoms What Chronic Disease(s) does the patient have: COPD Do you check your blood pressures at home? Yes, Enter readings: 115/75 Do you have new or worse shortness of breath with activity? No Do you have new or worsening cough? No Do you have new or worsening wheezing? No Do you need to use your rescue (Albuterol) inhaler or nebulizer more often than normal? No Are you having any other symptoms that your PCP needs to know about? No Symptom Escalation The patient required an escalation for symptom(s)? No Medications Do you have any questions about taking your medication or which medications you should be on? No Do you need any medication refills at this time, including any of the medications you might take only when needed? No Social We would like to make sure you have what you need so that your basic needs are met- including your personal safety, food, housing and medications? Would you like to speak with a social work wall steamer to help give you support for any of these needs? No It can be normal to feel anxious or down during a time like this. Would you like to talk to a mental health professional about how you have been feeling? No Closing Thank you for taking the time to talk with me today. We want to work with you to ensure that we arekeeping your medical condition(s) well-controlled and to keep you healthy and out of the doctor's office or hospital. It s also not too late for me to sign you up for automated weekly questionnaires through [employer]. This is an easy way for us to stay connected each week. Are you interested? No, I understand. We can always sign you up in the future if you change your mind. Just as a reminder, will continue to call you every other week to check in on your health. Our calls should take 10-15 minutes or less. Remember, if you have concerns in between our calls, please call your PCP's office right away. Thank you. Enter next patient outreach date for two weeks on the same day of the week as today in the Track PtOutreach and End outreach. Dylon Lubin RN March 08, 2022 3:46 PM documented in this encounterA[facility] History of Present illness Narrative* Tristian Monique RN - 02/19/2022 2:07 PM EDT INSIGHT [facility] TELEPHONIC OUTREACH Provider Action/FYI: Spk with the Pt's Ica she noted no new or worsening COPD or other symptoms or needs. Contact made with patient: Yes Patient identified by name and . Discussed care with spouse It s nice talking to you again. As a reminder, this is our bi-weekly check-in where I will be asking you questions about your health. This will only take a few minutes of your time. Is this a good time? Yes Symptoms What Chronic Disease(s) does the patient have: COPD Do you check your blood pressures at home? Yes, Enter readings: Not available Do you have new or worse shortness of breath with activity? No Do you have new or worsening cough? No Do you have new or worsening wheezing? No Do you need to use your rescue (Albuterol) inhaler or nebulizer more often than normal? No Are you having any other symptoms that your PCP needs to know about? No Symptom Escalation The patient required an escalation for symptom(s)? No Medications Do you have any questions about taking your medication or which medications you should be on? No Do you need any medication refills at this time, including any of the medications you might take only when needed? No Social We would like to make sure you have what you need so that your basic needs are met- including your personal safety, food, housing and medications? Would you like to speak with a social work wall steamer to help give you support for any of these needs? No It can be normal to feel anxious or down during a time like this. Would you like to talk to a mental health professional about how you have been feeling? No Closing Thank you for taking the time to talk with me today. We want to work with you to ensure that we arekeeping your medical condition(s) well-controlled and to keep you healthy and out of the doctor's office or hospital. It s also not too late for me to sign you up for automated weekly questionnaires through [employer]. This is an easy way for us to stay connected each week. Are you interested? No, I understand. We can always sign you up in the future if you change your mind. Just as a reminder, will continue to call you every other week to check in on your health. Our calls should take 10-15 minutes or less. Remember, if you have concerns in between our calls, please call your PCP's office right away. Thank you. Enter next patient outreach date for two weeks on the same day of the week as today in the Track PtOutreach and End outreach. Dylon Lubin RN February 19, 2022 2:07 PM documented in this encounterAden[facility]07-[facility]22 Miscellaneous Notes* Telephone Encounter - Arely Mckenna LPN - 02/04/2022 2:45 PM EDT Patient notified of below recommendation, verbalized understanding. 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 He can stop the tamsulosin from us and see if he feels better off the medication. Restart for difficulty emptying the bladder. * Telephone Encounter - Alessandra Chao RN - 02/01/2022 3:48 PM EDT Pt is asking if provider would go over his medications and see if any of them interact with on another, and if all of them are necessary. Pt reports he has been having problems with coughing, lightheadedness, and being tired. Please call and advise. documented in this encounterAdena [facility]07-21-2022 History of Present illness Narrative* Tristian Monique RN - 02/04/2022 11:05 AM EDT INSIGHT [facility] TELEPHONIC OUTREACH Provider Action/FYI: Call to Pt left a message to verify COPD or other symptom status and needs. Contact made with patient: No - Left message Charlee my name is Dylon Lubin RN your Demolition Expert from the [facility] I am callingtoday for your bi-weekly check in. I am sorry I missed your call. I will reach out to you again tomorrow. (if the third call I will reach out to you again next week) Enter next patient outreach date for the following business day using the Track Pt Outreach. End outreach. Dylon Lubin RN February 04, 2022 11:05 AM documented in this encounterAdena [facility]07-01-2022 History of Present illness Narrative* Tristian Monique RN - 01/15/2022 12:43 PM EDT [facility] TELEPHONIC OUTREACH Provider Action/FYI: Call to Pt left a message to verify COPD or other symptom status and needs. Contact made with patient: No - Left message Hello my name is Dylon Lubin RN your Demolition Expert [facility] the [facility] I am callingtoday for your bi-weekly check in. I am sorry I missed your call. I will reach out to you again tomorrow. (if the third call I will reach out to you again next week) Enter next patient outreach date for the following business day using the Track Pt Outreach. End outreach. Dylon Lubin RN January 15, 2022 12:43 PM documented in this encounterAdena [facility]06-16-2022 History of Present illness Narrative* Tristian Monique RN - 12/31/2021 12:22 PM EDT [facility] TELEPHONIC OUTREACH Provider Action/FYI: Spk with Pt he reports occasional mild cough feels it is due to the air conditioner, he reports unchanged Sob with exertion, denies wheezing, fever or chills or other symptoms. Pt notes occasionally uses his Albuterol inhaler. Denies needs or concerns. Contact made with patient: Yes Patient identified by name and . Discussed care with patient It s nice talking to you again. As a reminder, this is our bi-weekly check-in where I will be asking you questions about your health. This will only take a few minutes of your time. Is this a good time? Yes Symptoms What Chronic Disease(s) does the patient have: COPD Do you check your blood pressures at home? Yes, Enter readings: 123/66 Do you have new or worse shortness of breath with activity? No Do you have new or worsening cough? No Do you have new or worsening wheezing? No Do you need to use your rescue (Albuterol) inhaler or nebulizer more often than normal? No Are you having any other symptoms that your PCP needs to know about? No Symptom Escalation The patient required an escalation for symptom(s)? No Medications Do you have any questions about taking your medication or which medications you should be on? No Do you need any medication refills at this time, including any of the medications you might take only when needed? No Social We would like to make sure you have what you need so that your basic needs are met- including your personal safety, food, housing and medications? Would you like to speak with a social work wall steamer to help give you support for any of these needs? No It can be normal to feel anxious or down during a time like this. Would you like to talk to a mental health professional about how you have been feeling? No Closing Thank you for taking the time to talk with me today. We want to work with you to ensure that we arekeeping your medical condition(s) well-controlled and to keep you healthy and out of the doctor's office or hospital. It s also not too late for me to sign you up for automated weekly questionnaires through [employer]. This is an easy way for us to stay connected each week. Are you interested? No, I understand. We can always sign you up in the future if you change your mind. Just as a reminder, will continue to call you every other week to check in on your health. Our calls should take 10-15 minutes or less. Remember, if you have concerns in between our calls, please call your PCP's office right away. Thank you. Enter next patient outreach date for two weeks on the same day of the week as today in the Track PtOutreach and End outreach. Dylon Lubin RN December 31, 2021 12:22 PM * Tristian Monique RN - 12/30/2021 2:45 PM EDT [facility] TELEPHONIC OUTREACH Provider Action/FYI: Call to Pt left a message to verify COPD status and needs. Contact made with patient: No - Left message Charlee my name is Dylon Lubin RN your Demolition Expert [facility] the [facility] I am callingtoday for your bi-weekly check in. I am sorry I missed your call. I will reach out to you again tomorrow. (if the third call I will reach out to you again next week) Enter next patient outreach date for the following business day using the Track Pt Outreach. End outreach. Dylon Lubin RN December 30, 2021 2:45 PM documented in this encounterAdena [facility]05-31-2022 History of Present illness Narrative* Tristian Monique RN - 12/15/2021 10:54 AM EDT [facility] TELEPHONIC OUTREACH Provider Action/FYI: Spk with Pt's she denies new or worsening COPD or other symptoms, Ica noted she is keeping himout of the heat, he is hydrating well. Damon uses Albuterol inhaler approximately 1x week, denies needs or concerns. Contact made with patient: Yes Patient identified by name and . Discussed care with spouse It s nice talking to you again. As a reminder, this is our bi-weekly check-in where I will be asking you questions about your health. This will only take a few minutes of your time. Is this a good time? Yes Symptoms What Chronic Disease(s) does the patient have: COPD Do you check your blood pressures at home? Yes, Enter readings: Not available Do you have new or worse shortness of breath with activity? No Do you have new or worsening cough? No Do you have new or worsening wheezing? No Do you need to use your rescue (Albuterol) inhaler or nebulizer more often than normal? No Are you having any other symptoms that your PCP needs to know about? No Symptom Escalation The patient required an escalation for symptom(s)? No Medications Do you have any questions about taking your medication or which medications you should be on? No Do you need any medication refills at this time, including any of the medications you might take only when needed? No Social We would like to make sure you have what you need so that your basic needs are met- including your personal safety, food, housing and medications? Would you like to speak with a social work wall steamer to help give you support for any of these needs? No It can be normal to feel anxious or down during a time like this. Would you like to talk to a mental health professional about how you have been feeling? No Closing Thank you for taking the time to talk with me today. We want to work with you to ensure that we arekeeping your medical condition(s) well-controlled and to keep you healthy and out of the doctor's office or hospital. It s also not too late for me to sign you up for automated weekly questionnaires through [employer]. This is an easy way for us to stay connected each week. Are you interested? No, I understand. We can always sign you up in the future if you change your mind. Just as a reminder, will continue to call you every other week to check in on your health. Our calls should take 10-15 minutes or less. Remember, if you have concerns in between our calls, please call your PCP's office right away. Thank you. Enter next patient outreach date for two weeks on the same day of the week as today in the Track PtOutreach and End outreach. Dylon Lubin RN December 15, 2021 10:54 AM documented in this encounterAdena [facility]05-12-2022 History of Present illness Narrative* Tristian Monique RN - 11/26/2021 9:46 AM EDT INSIGHT [facility] TELEPHONIC OUTREACH Provider Action/FYI: Call to Pt unable to leave a message to verify COPD status and needs. Contact made with patient: No - Unable to leave message Entered next patient outreach date for the following business day, if third call please enter next outreach date for one week in the Track Pt. Outreach - End Outreach Dylon Lubin RN November 26, 2021 9:46 AM documented in this encounterAdena [facility]05-05-2022 Miscellaneous Notes* Telephone Encounter - Krista Jett - 11/19/2021 11:54 AM EDT Pharmacy faxed requesting the following refill. Pending Prescriptions Disp Refills BREO ELLIPTA 100 MCG-25 MCG/DOSE POWDER FOR INHALATION 3 Sig: USE 1 INHALATION ORALLY ONCE DAILY INSTRUCTED WILIAM: Yes Patient last appointment: 09/17/2021 In [place] with Maryam GUTIERREZ Patient Phone numbers: [phone] (home) Request is for script(s) to be escript to pharmacy. Krista Jett documented in this encounterAdena [facility]04-27-2022 History of Present illness Narrative* Tristian Monique RN - 11/11/2021 9:40 AM EDT [facility] TELEPHONIC OUTREACH Provider Action/FYI: Spk with Pt who denies new or worsening COPD symptoms or needs Contact made with patient: Yes Patient identified by name and . Discussed care with patient It s nice talking to you again. As a reminder, this is our bi-weekly check-in where I will be asking you questions about your health. This will only take a few minutes of your time. Is this a good time? Yes Symptoms What Chronic Disease(s) does the patient have: COPD Do you check your blood pressures at home? Yes, Enter readings: 134/80 Do you have new or worse shortness of breath with activity? No Do you have new or worsening cough? No Do you have new or worsening wheezing? No Do you need to use your rescue (Albuterol) inhaler or nebulizer more often than normal? No Are you having any other symptoms that your PCP needs to know about? No Symptom Escalation The patient required an escalation for symptom(s)? No Medications Do you have any questions about taking your medication or which medications you should be on? No Do you need any medication refills at this time, including any of the medications you might take only when needed? No Social We would like to make sure you have what you need so that your basic needs are met- including your personal safety, food, housing and medications? Would you like to speak with a social work wall steamer to help give you support for any of these needs? No It can be normal to feel anxious or down during a time like this. Would you like to talk to a mental health professional about how you have been feeling? No Closing Thank you for taking the time to talk with me today. We want to work with you to ensure that we arekeeping your medical condition(s) well-controlled and to keep you healthy and out of the doctor's office or hospital. It s also not too late for me to sign you up for automated weekly questionnaires through [employer]. This is an easy way for us to stay connected each week. Are you interested? No, I understand. We can always sign you up in the future if you change your mind. Just as a reminder, will continue to call you every other week to check in on your health. Our calls should take 10-15 minutes or less. Remember, if you have concerns in between our calls, please call your PCP's office right away. Thank you. Enter next patient outreach date for two weeks on the same day of the week as today in the Track PtOutreach and End outreach. Dylon Lubin RN November 11, 2021 9:41 AM documented in this encounterAdena [facility]04-12-2022 Miscellaneous Notes* Telephone Encounter - Arely Mckenna LPN - 10/27/2021 2:36 PM EDT Patient has been identified by name and date of : Yes Patient phones for refill(s): Pending Prescriptions Disp Refills TAMSULOSIN 0.4 MG CAPSULE 90 capsule 3 Sig: Take 1 capsule by mouth every evening. WILIAM: No Date of last office visit in primary care: 08/12/2021 7 month follow-up: 03/12/2022 Last 2 Encounter Wt Readings: Date: Wt: 09/17/2021 88.9 kg (196 lb) 09/17/2021 88.9 kg (196 lb) Previous labs/tests for medication: Not applicable Please advise. Thank you. Arely Mckenna LPN * Telephone Encounter - Celsa Noland Pss - 10/27/2021 10:16 AM EDT Patient has been identified by name and date of : Yes Pending Prescriptions Disp Refills TAMSULOSIN 0.4 MG CAPSULE 90 capsule 3 Sig: Take 1 capsule by mouth every evening. WILIAM: No RX INSTRUCTIONS: Patient aware RX escripted to mail away pharmacy. No need to notify patient. Celsa Alex documented in this encounterAdena [facility]04-12-2022 History of Present illness Narrative* Tristian Monique RN - 10/27/2021 10:57 AM EDT INS[facility] TELEPHONIC OUTREACH Provider Action/FYI: Spk with Pt who denies new or worsening COPD symptoms, or needs. Contact made with patient: Yes Patient identified by name and . Discussed care with patient It s nice talking to you again. As a reminder, this is our bi-weekly check-in where I will be asking you questions about your health. This will only take a few minutes of your time. Is this a good time? Yes Symptoms What Chronic Disease(s) does the patient have: COPD Do you check your blood pressures at home? Yes, Enter readings: No recent reading Do you have new or worse shortness of breath with activity? No Do you have new or worsening cough? No Do you have new or worsening wheezing? No Do you need to use your rescue (Albuterol) inhaler or nebulizer more often than normal? No Are you having any other symptoms that your PCP needs to know about? No Symptom Escalation The patient required an escalation for symptom(s)? No Medications Do you have any questions about taking your medication or which medications you should be on? No Do you need any medication refills at this time, including any of the medications you might take only when needed? No Social We would like to make sure you have what you need so that your basic needs are met- including your personal safety, food, housing and medications? Would you like to speak with a social work wall steamer to help give you support for any of these needs? No It can be normal to feel anxious or down during a time like this. Would you like to talk to a mental health professional about how you have been feeling? No Closing Thank you for taking the time to talk with me today. We want to work with you to ensure that we arekeeping your medical condition(s) well-controlled and to keep you healthy and out of the doctor's office or hospital. It s also not too late for me to sign you up for automated weekly questionnaires through [employer]. This is an easy way for us to stay connected each week. Are you interested? No, I understand. We can always sign you up in the future if you change your mind. Just as a reminder, will continue to call you every other week to check in on your health. Our calls should take 10-15 minutes or less. Remember, if you have concerns in between our calls, please call your PCP's office right away. Thank you. Enter next patient outreach date for two weeks on the same day of the week as today in the Track PtOutreach and End outreach. Dylon Lubin RN October 27, 2021 10:57 AM documented in this encounterAdena [facility]05-25-2018 History of Past illness Narrative* Problem Noted Date Resolved Date Transient cerebral ischemia 12/09/201703/18 Orthostatic dizziness 04/02/2017 09/28/2017 Irritated//Inflamed Seborrheic Keratosis 014 10/03/2014 Pigmented Lentiginous Neopla sm Uncertain Behavior(NUB): R/O Lentigo Maligna at right hinduism//cheek face 02/13/2014 04/02/2017 Solar lentigo 02/13/2014 04/02/2017 Melanocytic nevus of trunk 02/13/201404/02 Hyponatremia 09/28/2012 10/03/2014 Actinic Keratosis: Premalignant AK 11/18/2011 10/03/2014 Skin tag 11/18/2011 09/25/2012 Intradermal nevus 11/18/2011 09/25/2012 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 013 Actinic skin damage 11/18/2011 09/25/2012 Solar lentigo 11/18/2011 09/25/2012 Depression 06/09/2011 09/25/2012 Insomnia 11/24/2009 09/25/2012 HYPERGLYCEMIA 10/16/2008 09/25/2012 Abdominal pain, right upper quadrant 05/15/2008 03/24/2010 Flatulence, eructation, and gas pain 05/15/2008 10/16/2008 Special screening for malignant neoplasms, colon 05/15/2008 10/16/2008 Acute, but ill-defined, cerebrovascular disease 12/29/2006 09/20/2011 Headache(784.0) 12/29/2006 03/24/2010 Personal history of colonic polyps 08/15/2006 04/04/2018 Overview: Colonoscopy - 15 May 2008 per [facility] Cough 06/07/2006 10/08/2010 Chest pain, unspecified 10/09/19 11 Overview: [facility] adm 03/17-03/18/10- Nuclear stress test no ischemia or ST changes, EF 70%. F/u with cardiology CABG 2003 @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 Active CP in office 04/2010- to [facility] ED for eval- abn EKG, t-wave inversion documented as of this encounter (statuses as of 10/27/2021) [facility] of Past illness Narrative* Problem Noted Date Resolved Date Transient cerebral ischemia 12/09/201703/18 Orthostatic dizziness 04/02/2017 09/28/2017 Irritated//Inflamed Seborrheic Keratosis 014 10/03/2014 Pigmented Lentiginous Neopla sm Uncertain Behavior(NUB): R/O Lentigo Maligna at right hinduism//cheek face 02/13/2014 04/02/2017 Solar lentigo 02/13/2014 04/02/2017 Melanocytic nevus of trunk 02/13/201404/02 Hyponatremia 09/28/2012 10/03/2014 Actinic Keratosis: Premalignant AK 11/18/2011 10/03/2014 Skin tag 11/18/2011 09/25/2012 Intradermal nevus 11/18/2011 09/25/2012 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 013 Actinic skin damage 11/18/2011 09/25/2012 Solar lentigo 11/18/2011 09/25/2012 Depression 06/09/2011 09/25/2012 Insomnia 11/24/2009 09/25/2012 HYPERGLYCEMIA 10/16/2008 09/25/2012 Abdominal pain, right upper quadrant 05/15/2008 03/24/2010 Flatulence, eructation, and gas pain 05/15/2008 10/16/2008 Special screening for malignant neoplasms, colon 05/15/2008 10/16/2008 Acute, but ill-defined, cerebrovascular disease 12/29/2006 09/20/2011 Headache(784.0) 12/29/2006 03/24/2010 Personal history of colonic polyps 08/15/2006 04/04/2018 Overview: Colonoscopy - 15 May 2008 per [place] Cough 06/07/2006 10/08/2010 Chest pain, unspecified 10/09/19 11 Overview: [facility] [facility] adm 03/17-03/18/10- Nuclear stress test no ischemia or ST changes, EF 70%. F/u with cardiology CABG 2003 @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 Active CP in office 04/2010- to [facility] ED for eval- abn EKG, t-wave inversion documented as of this encounter (statuses as of 10/28/2021) [facility]05-[facility]-2018 History of Past illness Narrative* Problem Noted Date Resolved Date Transient cerebral ischemia 12/09/201703/18 Orthostatic dizziness 04/02/2017 09/28/2017 Irritated//Inflamed Seborrheic Keratosis 014 10/03/2014 Pigmented Lentiginous Neopla sm Uncertain Behavior(NUB): R/O Lentigo Maligna at right hinduism//cheek face 02/13/2014 04/02/2017 Solar lentigo 02/13/2014 04/02/2017 Melanocytic nevus of trunk 02/13/201404/02 Hyponatremia 09/28/2012 10/03/2014 Actinic Keratosis: Premalignant AK 11/18/2011 10/03/2014 Skin tag 11/18/2011 09/25/2012 Intradermal nevus 11/18/2011 09/25/2012 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 013 Actinic skin damage 11/18/2011 09/25/2012 Solar lentigo 11/18/2011 09/25/2012 Depression 06/09/2011 09/25/2012 Insomnia 11/24/2009 09/25/2012 HYPERGLYCEMIA 10/16/2008 09/25/2012 Abdominal pain, right upper quadrant 05/15/2008 03/24/2010 Flatulence, eructation, and gas pain 05/15/2008 10/16/2008 Special screening for malignant neoplasms, colon 05/15/2008 10/16/2008 Acute, but ill-defined, cerebrovascular disease 12/29/2006 09/20/2011 Headache(784.0) 12/29/2006 03/24/2010 Personal history of colonic polyps 08/15/2006 04/04/2018 Overview: Colonoscopy - 15 May 2008 per Bayron Cough 06/07/2006 10/08/2010 Chest pain, unspecified 10/09/19 11 Overview: [facility] adm 03/17-03/18/10- Nuclear stress test no ischemia or ST changes, EF 70%. F/u with cardiology CABG 2003 @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 Active CP in office 04/2010- to [facility] ED for eval- abn EKG, t-wave inversion documented as of this encounter (statuses as of 11/11/2021) [facility]05-[facility]2018 History of Past illness Narrative* Problem Noted Date Resolved Date Transient cerebral ischemia 12/09/201703/18 Orthostatic dizziness 04/02/2017 09/28/2017 Irritated//Inflamed Seborrheic Keratosis 014 10/03/2014 Pigmented Lentiginous Neopla sm Uncertain Behavior(NUB): R/O Lentigo Maligna at right hinduism//cheek face 02/13/2014 04/02/2017 Solar lentigo 02/13/2014 04/02/2017 Melanocytic nevus of trunk 02/13/201404/02 Hyponatremia 09/28/2012 10/03/2014 Actinic Keratosis: Premalignant AK 11/18/2011 10/03/2014 Skin tag 11/18/2011 09/25/2012 Intradermal nevus 11/18/2011 09/25/2012 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 013 Actinic skin damage 11/18/2011 09/25/2012 Solar lentigo 11/18/2011 09/25/2012 Depression 06/09/2011 09/25/2012 Insomnia 11/24/2009 09/25/2012 HYPERGLYCEMIA 10/16/2008 09/25/2012 Abdominal pain, right upper quadrant 05/15/2008 03/24/2010 Flatulence, eructation, and gas pain 05/15/2008 10/16/2008 Special screening for malignant neoplasms, colon 05/15/2008 10/16/2008 Acute, but ill-defined, cerebrovascular disease 12/29/2006 09/20/2011 Headache(784.0) 12/29/2006 03/24/2010 Personal history of colonic polyps 08/15/2006 04/04/2018 Overview: Colonoscopy - 15 May 2008 per Bayron Cough 06/07/2006 10/08/2010 Chest pain, unspecified 10/09/19 11 Overview: [facility] adm 03/17-03/18/10- Nuclear stress test no ischemia or ST changes, EF 70%. F/u with cardiology CABG 2003 @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 Active CP in office 04/2010- to [facility] ED for eval- abn EKG, t-wave inversion documented as of this encounter (statuses as of 11/19/2021) [facility]05[facility]2018 History of Past illness Narrative* Problem Noted Date Resolved Date Transient cerebral ischemia 12/09/201703/18 Orthostatic dizziness 04/02/2017 09/28/2017 Irritated//Inflamed Seborrheic Keratosis 014 10/03/2014 Pigmented Lentiginous Neopla sm Uncertain Behavior(NUB): R/O Lentigo Maligna at right hinduism//cheek face 02/13/2014 04/02/2017 Solar lentigo 02/13/2014 04/02/2017 Melanocytic nevus of trunk 02/13/201404/02 Hyponatremia 09/28/2012 10/03/2014 Actinic Keratosis: Premalignant AK 11/18/2011 10/03/2014 Skin tag 11/18/2011 09/25/2012 Intradermal nevus 11/18/2011 09/25/2012 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 013 Actinic skin damage 11/18/2011 09/25/2012 Solar lentigo 11/18/2011 09/25/2012 Depression 06/09/2011 09/25/2012 Insomnia 11/24/2009 09/25/2012 HYPERGLYCEMIA 10/16/2008 09/25/2012 Abdominal pain, right upper quadrant 05/15/2008 03/24/2010 Flatulence, eructation, and gas pain 05/15/2008 10/16/2008 Special screening for malignant neoplasms, colon 05/15/2008 10/16/2008 Acute, but ill-defined, cerebrovascular disease 12/29/2006 09/20/2011 Headache(784.0) 12/29/2006 03/24/2010 Personal history of colonic polyps 08/15/2006 04/04/2018 Overview: Colonoscopy - 15 May 2008 per [facility] Cough 06/07/2006 10/08/2010 Chest pain, unspecified 10/09/19 11 Overview: [facility] adm 03/17-03/18/10- Nuclear stress test no ischemia or ST changes, EF 70%. F/u with cardiology CABG 2003 @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 Active CP in office 04/2010- to [facility] ED for eval- abn EKG, t-wave inversion documented as of this encounter (statuses as of 11/27/2021) [facility]2018 History of Past illness Narrative* Problem Noted Date Resolved Date Transient cerebral ischemia 12/09/201703/18 Orthostatic dizziness 04/02/2017 09/28/2017 Irritated//Inflamed Seborrheic Keratosis 014 10/03/2014 Pigmented Lentiginous Neopla sm Uncertain Behavior(NUB): R/O Lentigo Maligna at right hinduism//cheek face 02/13/2014 04/02/2017 Solar lentigo 02/13/2014 04/02/2017 Melanocytic nevus of trunk 02/13/201404/02 Hyponatremia 09/28/2012 10/03/2014 Actinic Keratosis: Premalignant AK 11/18/2011 10/03/2014 Skin tag 11/18/2011 09/25/2012 Intradermal nevus 11/18/2011 09/25/2012 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 013 Actinic skin damage 11/18/2011 09/25/2012 Solar lentigo 11/18/2011 09/25/2012 Depression 06/09/2011 09/25/2012 Insomnia 11/24/2009 09/25/2012 HYPERGLYCEMIA 10/16/2008 09/25/2012 Abdominal pain, right upper quadrant 05/15/2008 03/24/2010 Flatulence, eructation, and gas pain 05/15/2008 10/16/2008 Special screening for malignant neoplasms, colon 05/15/2008 10/16/2008 Acute, but ill-defined, cerebrovascular disease 12/29/2006 09/20/2011 Headache(784.0) 12/29/2006 03/24/2010 Personal history of colonic polyps 08/15/2006 04/04/2018 Overview: Colonoscopy - 15 May 2008 per Bayron Cough 06/07/2006 10/08/2010 Chest pain, unspecified 10/09/19 11 Overview: [facility] adm 03/17-03/18/10- Nuclear stress test no ischemia or ST changes, EF 70%. F/u with cardiology CABG 2003 @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 Active CP in office 04/2010- to [facility] ED for eval- abn EKG, t-wave inversion documented as of this encounter (statuses as of 12/15/2021) [facility]2018 History of Past illness Narrative* Problem Noted Date Resolved Date Transient cerebral ischemia 12/09/201703/18 Orthostatic dizziness 04/02/2017 09/28/2017 Irritated//Inflamed Seborrheic Keratosis 014 10/03/2014 Pigmented Lentiginous Neopla sm Uncertain Behavior(NUB): R/O Lentigo Maligna at right hinduism//cheek face 02/13/2014 04/02/2017 Solar lentigo 02/13/2014 04/02/2017 Melanocytic nevus of trunk 02/13/201404/02 Hyponatremia 09/28/2012 10/03/2014 Actinic Keratosis: Premalignant AK 11/18/2011 10/03/2014 Skin tag 11/18/2011 09/25/2012 Intradermal nevus 11/18/2011 09/25/2012 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 013 Actinic skin damage 11/18/2011 09/25/2012 Solar lentigo 11/18/2011 09/25/2012 Depression 06/09/2011 09/25/2012 Insomnia 11/24/2009 09/25/2012 HYPERGLYCEMIA 10/16/2008 09/25/2012 Abdominal pain, right upper quadrant 05/15/2008 03/24/2010 Flatulence, eructation, and gas pain 05/15/2008 10/16/2008 Special screening for malignant neoplasms, colon 05/15/2008 10/16/2008 Acute, but ill-defined, cerebrovascular disease 12/29/2006 09/20/2011 Headache(784.0) 12/29/2006 03/24/2010 Personal history of colonic polyps 08/15/2006 04/04/2018 Overview: Colonoscopy - 15 May 2008 per Bayron Cough 06/07/2006 10/08/2010 Chest pain, unspecified 10/09/19 11 Overview: [facility] adm 03/17-03/18/10- Nuclear stress test no ischemia or ST changes, EF 70%. F/u with cardiology CABG 2003 @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 Active CP in office 04/2010- to [facility] ED for eval- abn EKG, t-wave inversion documented as of this encounter (statuses as of 12/31/2021) [facility]05-[facility]2018 History of Past illness Narrative* Problem Noted Date Resolved Date Transient cerebral ischemia 12/09/201703/18 Orthostatic dizziness 04/02/2017 09/28/2017 Irritated//Inflamed Seborrheic Keratosis 014 10/03/2014 Pigmented Lentiginous Neopla sm Uncertain Behavior(NUB): R/O Lentigo Maligna at right hinduism//cheek face 02/13/2014 04/02/2017 Solar lentigo 02/13/2014 04/02/2017 Melanocytic nevus of trunk 02/13/201404/02 Hyponatremia 09/28/2012 10/03/2014 Actinic Keratosis: Premalignant AK 11/18/2011 10/03/2014 Skin tag 11/18/2011 09/25/2012 Intradermal nevus 11/18/2011 09/25/2012 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 013 Actinic skin damage 11/18/2011 09/25/2012 Solar lentigo 11/18/2011 09/25/2012 Depression 06/09/2011 09/25/2012 Insomnia 11/24/2009 09/25/2012 HYPERGLYCEMIA 10/16/2008 09/25/2012 Abdominal pain, right upper quadrant 05/15/2008 03/24/2010 Flatulence, eructation, and gas pain 05/15/2008 10/16/2008 Special screening for malignant neoplasms, colon 05/15/2008 10/16/2008 Acute, but ill-defined, cerebrovascular disease 12/29/2006 09/20/2011 Headache(784.0) 12/29/2006 03/24/2010 Personal history of colonic polyps 08/15/2006 04/04/2018 Overview: Colonoscopy - 15 May 2008 per Bayron Cough 06/07/2006 10/08/2010 Chest pain, unspecified 10/09/19 11 Overview: [facility] adm 03/17-03/18/10- Nuclear stress test no ischemia or ST changes, EF 70%. F/u with cardiology CABG 2003 @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 Active CP in office 04/2010- to [facility] ED for eval- abn EKG, t-wave inversion documented as of this encounter (statuses as of 01/15/2022) [facility] History of Past illness Narrative* Problem Noted Date Resolved Date Transient cerebral ischemia 12/09/201703/18 Orthostatic dizziness 04/02/2017 09/28/2017 Irritated//Inflamed Seborrheic Keratosis 014 10/03/2014 Pigmented Lentiginous Neopla sm Uncertain Behavior(NUB): R/O Lentigo Maligna at right hinduism//cheek face 02/13/2014 04/02/2017 Solar lentigo 02/13/2014 04/02/2017 Melanocytic nevus of trunk 02/13/201404/02 Hyponatremia 09/28/2012 10/03/2014 Actinic Keratosis: Premalignant AK 11/18/2011 10/03/2014 Skin tag 11/18/2011 09/25/2012 Intradermal nevus 11/18/2011 09/25/2012 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 013 Actinic skin damage 11/18/2011 09/25/2012 Solar lentigo 11/18/2011 09/25/2012 Depression 06/09/2011 09/25/2012 Insomnia 11/24/2009 09/25/2012 HYPERGLYCEMIA 10/16/2008 09/25/2012 Abdominal pain, right upper quadrant 05/15/2008 03/24/2010 Flatulence, eructation, and gas pain 05/15/2008 10/16/2008 Special screening for malignant neoplasms, colon 05/15/2008 10/16/2008 Acute, but ill-defined, cerebrovascular disease 12/29/2006 09/20/2011 Headache(784.0) 12/29/2006 03/24/2010 Personal history of colonic polyps 08/15/2006 04/04/2018 Overview: Colonoscopy - 15 May 2008 per Bayron Cough 06/07/2006 10/08/2010 Chest pain, unspecified 10/09/19 11 Overview: [facility] adm 03/17-03/18/10- Nuclear stress test no ischemia or ST changes, EF 70%. F/u with cardiology CABG 2003 @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 Active CP in office 04/2010- to [facility] ED for eval- abn EKG, t-wave inversion documented as of this encounter (statuses as of 02/04/2022) [facility] History of Past illness Narrative* Problem Noted Date Resolved Date Transient cerebral ischemia 12/09/201703/18 Orthostatic dizziness 04/02/2017 09/28/2017 Irritated//Inflamed Seborrheic Keratosis 014 10/03/2014 Pigmented Lentiginous Neopla sm Uncertain Behavior(NUB): R/O Lentigo Maligna at right hinduism//cheek face 02/13/2014 04/02/2017 Solar lentigo 02/13/2014 04/02/2017 Melanocytic nevus of trunk 02/13/201404/02 Hyponatremia 09/28/2012 10/03/2014 Actinic Keratosis: Premalignant AK 11/18/2011 10/03/2014 Skin tag 11/18/2011 09/25/2012 Intradermal nevus 11/18/2011 09/25/2012 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 013 Actinic skin damage 11/18/2011 09/25/2012 Solar lentigo 11/18/2011 09/25/2012 Depression 06/09/2011 09/25/2012 Insomnia 11/24/2009 09/25/2012 HYPERGLYCEMIA 10/16/2008 09/25/2012 Abdominal pain, right upper quadrant 05/15/2008 03/24/2010 Flatulence, eructation, and gas pain 05/15/2008 10/16/2008 Special screening for malignant neoplasms, colon 05/15/2008 10/16/2008 Acute, but ill-defined, cerebrovascular disease 12/29/2006 09/20/2011 Headache(784.0) 12/29/2006 03/24/2010 Personal history of colonic polyps 08/15/2006 04/04/2018 Overview: Colonoscopy - 15 May 2008 per [facility] Cough 06/07/2006 10/08/2010 Chest pain, unspecified 10/09/19 11 Overview: [facility] adm 03/17-03/18/10- Nuclear stress test no ischemia or ST changes, EF 70%. F/u with cardiology CABG 2003 @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 Active CP in office 04/2010- to [facility] ED for eval- abn EKG, t-wave inversion documented as of this encounter (statuses as of 02/19/2022) [facility] History of Past illness Narrative* Problem Noted Date Resolved Date Transient cerebral ischemia 12/09/201703/18 Orthostatic dizziness 04/02/2017 09/28/2017 Irritated//Inflamed Seborrheic Keratosis 014 10/03/2014 Pigmented Lentiginous Neopla sm Uncertain Behavior(NUB): R/O Lentigo Maligna at right hinduism//cheek face 02/13/2014 04/02/2017 Solar lentigo 02/13/2014 04/02/2017 Melanocytic nevus of trunk 02/13/201404/02 Hyponatremia 09/28/2012 10/03/2014 Actinic Keratosis: Premalignant AK 11/18/2011 10/03/2014 Skin tag 11/18/2011 09/25/2012 Intradermal nevus 11/18/2011 09/25/2012 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 013 Actinic skin damage 11/18/2011 09/25/2012 Solar lentigo 11/18/2011 09/25/2012 Depression 06/09/2011 09/25/2012 Insomnia 11/24/2009 09/25/2012 HYPERGLYCEMIA 10/16/2008 09/25/2012 Abdominal pain, right upper quadrant 05/15/2008 03/24/2010 Flatulence, eructation, and gas pain 05/15/2008 10/16/2008 Special screening for malignant neoplasms, colon 05/15/2008 10/16/2008 Acute, but ill-defined, cerebrovascular disease 12/29/2006 09/20/2011 Headache(784.0) 12/29/2006 03/24/2010 Personal history of colonic polyps 08/15/2006 04/04/2018 Overview: Colonoscopy - 15 May 2008 per [facility] Cough 06/07/2006 10/08/2010 Chest pain, unspecified 10/09/19 11 Overview: [facility] adm 03/17-03/18/10- Nuclear stress test no ischemia or ST changes, EF 70%. F/u with cardiology CABG 2003 @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 Active CP in office 04/2010- to [facility] ED for eval- abn EKG, t-wave inversion documented as of this encounter (statuses as of 03/08/2022) [facility] History of Past illness Narrative* Problem Noted Date Resolved Date Transient cerebral ischemia 12/09/201703/18 Orthostatic dizziness 04/02/2017 09/28/2017 Irritated//Inflamed Seborrheic Keratosis 014 10/03/2014 Pigmented Lentiginous Neopla sm Uncertain Behavior(NUB): R/O Lentigo Maligna at right hinduism//cheek face 02/13/2014 04/02/2017 Solar lentigo 02/13/2014 04/02/2017 Melanocytic nevus of trunk 02/13/201404/02 Hyponatremia 09/28/2012 10/03/2014 Actinic Keratosis: Premalignant AK 11/18/2011 10/03/2014 Skin tag 11/18/2011 09/25/2012 Intradermal nevus 11/18/2011 09/25/2012 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 013 Actinic skin damage 11/18/2011 09/25/2012 Solar lentigo 11/18/2011 09/25/2012 Depression 06/09/2011 09/25/2012 Insomnia 11/24/2009 09/25/2012 HYPERGLYCEMIA 10/16/2008 09/25/2012 Abdominal pain, right upper quadrant 05/15/2008 03/24/2010 Flatulence, eructation, and gas pain 05/15/2008 10/16/2008 Special screening for malignant neoplasms, colon 05/15/2008 10/16/2008 Acute, but ill-defined, cerebrovascular disease 12/29/2006 09/20/2011 Headache(784.0) 12/29/2006 03/24/2010 Personal history of colonic polyps 08/15/2006 04/04/2018 Overview: Colonoscopy - 15 May 2008 per [facility] OVERWEIGHT 08/15/2006 03/10/2022 Cough 06/07/2006 10/08/2010 Chest pain, unspecified 10/09/19 11 Overview: [facility] adm 03/17-03/18/10- Nuclear stress test no ischemia or ST changes, EF 70%. F/u with cardiology CABG 2003 @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 Active CP in office 04/2010- to [facility] ED for eval- abn EKG, t-wave inversion documented as of this encounter (statuses as of 04/28/2022) [facility] History of Past illness Narrative* Problem Noted Date Resolved Date Transient cerebral ischemia 12/09/201703/18 Orthostatic dizziness 04/02/2017 09/28/2017 Irritated//Inflamed Seborrheic Keratosis 014 10/03/2014 Pigmented Lentiginous Neopla sm Uncertain Behavior(NUB): R/O Lentigo Maligna at right hinduism//cheek face 02/13/2014 04/02/2017 Solar lentigo 02/13/2014 04/02/2017 Melanocytic nevus of trunk 02/13/201404/02 Hyponatremia 09/28/2012 10/03/2014 Actinic Keratosis: Premalignant AK 11/18/2011 10/03/2014 Skin tag 11/18/2011 09/25/2012 Intradermal nevus 11/18/2011 09/25/2012 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 013 Actinic skin damage 11/18/2011 09/25/2012 Solar lentigo 11/18/2011 09/25/2012 Depression 06/09/2011 09/25/2012 Insomnia 11/24/2009 09/25/2012 HYPERGLYCEMIA 10/16/2008 09/25/2012 Abdominal pain, right upper quadrant 05/15/2008 03/24/2010 Flatulence, eructation, and gas pain 05/15/2008 10/16/2008 Special screening for malignant neoplasms, colon 05/15/2008 10/16/2008 Acute, but ill-defined, cerebrovascular disease 12/29/2006 09/20/2011 Headache(784.0) 12/29/2006 03/24/2010 Personal history of colonic polyps 08/15/2006 04/04/2018 Overview: Colonoscopy - 15 May 2008 per [facility] OVERWEIGHT 08/15/2006 03/10/2022 Cough 06/07/2006 10/08/2010 Chest pain, unspecified 10/09/19 11 Overview: [facility] adm 03/17-03/18/10- Nuclear stress test no ischemia or ST changes, EF 70%. F/u with cardiology CABG 2003 @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 Active CP in office 04/2010- to [facility] ED for eval- abn EKG, t-wave inversion documented as of this encounter (statuses as of 05/03/2022) [facility] History of Past illness Narrative* Problem Noted Date Resolved Date Transient cerebral ischemia 12/09/201703/18 Orthostatic dizziness 04/02/2017 09/28/2017 Irritated//Inflamed Seborrheic Keratosis 014 10/03/2014 Pigmented Lentiginous Neopla sm Uncertain Behavior(NUB): R/O Lentigo Maligna at right hinduism//cheek face 02/13/2014 04/02/2017 Solar lentigo 02/13/2014 04/02/2017 Melanocytic nevus of trunk 02/13/201404/02 Hyponatremia 09/28/2012 10/03/2014 Actinic Keratosis: Premalignant AK 11/18/2011 10/03/2014 Skin tag 11/18/2011 09/25/2012 Intradermal nevus 11/18/2011 09/25/2012 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 013 Actinic skin damage 11/18/2011 09/25/2012 Solar lentigo 11/18/2011 09/25/2012 Depression 06/09/2011 09/25/2012 Insomnia 11/24/2009 09/25/2012 HYPERGLYCEMIA 10/16/2008 09/25/2012 Abdominal pain, right upper quadrant 05/15/2008 03/24/2010 Flatulence, eructation, and gas pain 05/15/2008 10/16/2008 Special screening for malignant neoplasms, colon 05/15/2008 10/16/2008 Acute, but ill-defined, cerebrovascular disease 12/29/2006 09/20/2011 Headache(784.0) 12/29/2006 03/24/2010 Personal history of colonic polyps 08/15/2006 04/04/2018 Overview: Colonoscopy - 15 May 2008 per [facility]ron OVERWEIGHT 08/15/2006 03/10/2022 Cough 06/07/2006 10/08/2010 Chest pain, unspecified 10/09/19 11 Overview: [facility] adm 03/17-03/18/10- Nuclear stress test no ischemia or ST changes, EF 70%. F/u with cardiology CABG 2003 @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 Active CP in office 04/2010- to [facility] ED for eval- abn EKG, t-wave inversion documented as of this encounter (statuses as of 05/04/2022) [facility] History of Past illness Narrative* Problem Noted Date Resolved Date Transient cerebral ischemia 12/09/201703/18 Orthostatic dizziness 04/02/2017 09/28/2017 Irritated//Inflamed Seborrheic Keratosis 014 10/03/2014 Pigmented Lentiginous Neopla sm Uncertain Behavior(NUB): R/O Lentigo Maligna at right hinduism//cheek face 02/13/2014 04/02/2017 Solar lentigo 02/13/2014 04/02/2017 Melanocytic nevus of trunk 02/13/201404/02 Hyponatremia 09/28/2012 10/03/2014 Actinic Keratosis: Premalignant AK 11/18/2011 10/03/2014 Skin tag 11/18/2011 09/25/2012 Intradermal nevus 11/18/2011 09/25/2012 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 013 Actinic skin damage 11/18/2011 09/25/2012 Solar lentigo 11/18/2011 09/25/2012 Depression 06/09/2011 09/25/2012 Insomnia 11/24/2009 09/25/2012 HYPERGLYCEMIA 10/16/2008 09/25/2012 Abdominal pain, right upper quadrant 05/15/2008 03/24/2010 Flatulence, eructation, and gas pain 05/15/2008 10/16/2008 Special screening for malignant neoplasms, colon 05/15/2008 10/16/2008 Acute, but ill-defined, cerebrovascular disease 12/29/2006 09/20/2011 Headache(784.0) 12/29/2006 03/24/2010 Personal history of colonic polyps 08/15/2006 04/04/2018 Overview: Colonoscopy - 15 May 2008 per [facility]ron OVERWEIGHT 08/15/2006 03/10/2022 Cough 06/07/2006 10/08/2010 Chest pain, unspecified 10/09/19 11 Overview: [facility] adm 03/17-03/18/10- Nuclear stress test no ischemia or ST changes, EF 70%. F/u with cardiology CABG 2003 @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 Active CP in office 04/2010- to [facility] ED for eval- abn EKG, t-wave inversion documented as of this encounter (statuses as of 05/13/2022) [facility] History of Past illness Narrative* Problem Noted Date Resolved Date Transient cerebral ischemia 12/09/201703/18 Orthostatic dizziness 04/02/2017 09/28/2017 Irritated//Inflamed Seborrheic Keratosis 014 10/03/2014 Pigmented Lentiginous Neopla sm Uncertain Behavior(NUB): R/O Lentigo Maligna at right hinduism//cheek face 02/13/2014 04/02/2017 Solar lentigo 02/13/2014 04/02/2017 Melanocytic nevus of trunk 02/13/201404/02 Hyponatremia 09/28/2012 10/03/2014 Actinic Keratosis: Premalignant AK 11/18/2011 10/03/2014 Skin tag 11/18/2011 09/25/2012 Intradermal nevus 11/18/2011 09/25/2012 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 013 Actinic skin damage 11/18/2011 09/25/2012 Solar lentigo 11/18/2011 09/25/2012 Depression 06/09/2011 09/25/2012 Insomnia 11/24/2009 09/25/2012 HYPERGLYCEMIA 10/16/2008 09/25/2012 Abdominal pain, right upper quadrant 05/15/2008 03/24/2010 Flatulence, eructation, and gas pain 05/15/2008 10/16/2008 Special screening for malignant neoplasms, colon 05/15/2008 10/16/2008 Acute, but ill-defined, cerebrovascular disease 12/29/2006 09/20/2011 Headache(784.0) 12/29/2006 03/24/2010 Personal history of colonic polyps 08/15/2006 04/04/2018 Overview: Colonoscopy - 15 May 2008 per [facility] OVERWEIGHT 08/15/2006 03/10/2022 Cough 06/07/2006 10/08/2010 Chest pain, unspecified 10/09/19 11 Overview: [facility] adm 03/17-03/18/10- Nuclear stress test no ischemia or ST changes, EF 70%. F/u with cardiology CABG 2003 @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 Active CP in office 04/2010- to [facility] ED for eval- abn EKG, t-wave inversion documented as of this encounter (statuses as of 05/21/2022) [facility]2018 History of Past illness Narrative* Problem Noted Date Resolved Date Transient cerebral ischemia 12/09/201703/18 Orthostatic dizziness 04/02/2017 09/28/2017 Irritated//Inflamed Seborrheic Keratosis 014 10/03/2014 Pigmented Lentiginous Neopla sm Uncertain Behavior(NUB): R/O Lentigo Maligna at right hinduism//cheek face 02/13/2014 04/02/2017 Solar lentigo 02/13/2014 04/02/2017 Melanocytic nevus of trunk 02/13/201404/02 Hyponatremia 09/28/2012 10/03/2014 Actinic Keratosis: Premalignant AK 11/18/2011 10/03/2014 Skin tag 11/18/2011 09/25/2012 Intradermal nevus 11/18/2011 09/25/2012 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 013 Actinic skin damage 11/18/2011 09/25/2012 Solar lentigo 11/18/2011 09/25/2012 Depression 06/09/2011 09/25/2012 Insomnia 11/24/2009 09/25/2012 HYPERGLYCEMIA 10/16/2008 09/25/2012 Abdominal pain, right upper quadrant 05/15/2008 03/24/2010 Flatulence, eructation, and gas pain 05/15/2008 10/16/2008 Special screening for malignant neoplasms, colon 05/15/2008 10/16/2008 Acute, but ill-defined, cerebrovascular disease 12/29/2006 09/20/2011 Headache(784.0) 12/29/2006 03/24/2010 Personal history of colonic polyps 08/15/2006 04/04/2018 Overview: Colonoscopy - 15 May 2008 per [facility] 08/15/2006 03/10/2022 Cough 06/07/2006 10/08/2010 Chest pain, unspecified 10/09/19 11 Overview: [facility] adm 03/17-03/18/10- Nuclear stress test no ischemia or ST changes, EF 70%. F/u with cardiology CABG 2003 @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 Active CP in office 04/2010- to [facility] ED for eval- abn EKG, t-wave inversion documented as of this encounter (statuses as of 05/24/2022) [facility]2018 History of Past illness Narrative* Problem Noted Date Resolved Date Transient cerebral ischemia 12/09/201703/18 Orthostatic dizziness 04/02/2017 09/28/2017 Irritated//Inflamed Seborrheic Keratosis 014 10/03/2014 Pigmented Lentiginous Neopla sm Uncertain Behavior(NUB): R/O Lentigo Maligna at right hinduism//cheek face 02/13/2014 04/02/2017 Solar lentigo 02/13/2014 04/02/2017 Melanocytic nevus of trunk 02/13/201404/02 Hyponatremia 09/28/2012 10/03/2014 Actinic Keratosis: Premalignant AK 11/18/2011 10/03/2014 Skin tag 11/18/2011 09/25/2012 Intradermal nevus 11/18/2011 09/25/2012 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 013 Actinic skin damage 11/18/2011 09/25/2012 Solar lentigo 11/18/2011 09/25/2012 Depression 06/09/2011 09/25/2012 Insomnia 11/24/2009 09/25/2012 HYPERGLYCEMIA 10/16/2008 09/25/2012 Abdominal pain, right upper quadrant 05/15/2008 03/24/2010 Flatulence, eructation, and gas pain 05/15/2008 10/16/2008 Special screening for malignant neoplasms, colon 05/15/2008 10/16/2008 Acute, but ill-defined, cerebrovascular disease 12/29/2006 09/20/2011 Headache(784.0) 12/29/2006 03/24/2010 Personal history of colonic polyps 08/15/2006 04/04/2018 Overview: Colonoscopy - 15 May 2008 per [facility] 08/15/2006 03/10/2022 Cough 06/07/2006 10/08/2010 Chest pain, unspecified 10/09/19 11 Overview: [facility] adm 03/17-03/18/10- Nuclear stress test no ischemia or ST changes, EF 70%. F/u with cardiology CABG 2003 @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 Active CP in office 04/2010- to [facility] ED for eval- abn EKG, t-wave inversion documented as of this encounter (statuses as of 06/22/2022) [facility] History of Past illness Narrative* Problem Noted Date Resolved Date Transient cerebral ischemia 12/09/201703/18 Orthostatic dizziness 04/02/2017 09/28/2017 Irritated//Inflamed Seborrheic Keratosis 014 10/03/2014 Pigmented Lentiginous Neopla sm Uncertain Behavior(NUB): R/O Lentigo Maligna at right hinduism//cheek face 02/13/2014 04/02/2017 Solar lentigo 02/13/2014 04/02/2017 Melanocytic nevus of trunk 02/13/201404/02 Hyponatremia 09/28/2012 10/03/2014 Actinic Keratosis: Premalignant AK 11/18/2011 10/03/2014 Skin tag 11/18/2011 09/25/2012 Intradermal nevus 11/18/2011 09/25/2012 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 013 Actinic skin damage 11/18/2011 09/25/2012 Solar lentigo 11/18/2011 09/25/2012 Depression 06/09/2011 09/25/2012 Insomnia 11/24/2009 09/25/2012 HYPERGLYCEMIA 10/16/2008 09/25/2012 Abdominal pain, right upper quadrant 05/15/2008 03/24/2010 Flatulence, eructation, and gas pain 05/15/2008 10/16/2008 Special screening for malignant neoplasms, colon 05/15/2008 10/16/2008 Acute, but ill-defined, cerebrovascular disease 12/29/2006 09/20/2011 Headache(784.0) 12/29/2006 03/24/2010 Personal history of colonic polyps 08/15/2006 04/04/2018 Overview: Colonoscopy - 15 May 2008 per [facility] 08/15/2006 03/10/2022 Cough 06/07/2006 10/08/2010 Chest pain, unspecified 10/09/19 11 Overview: [facility] adm 03/17-03/18/10- Nuclear stress test no ischemia or ST changes, EF 70%. F/u with cardiology CABG 2003 @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 Active CP in office 04/2010- to [facility] ED for eval- abn EKG, t-wave inversion documented as of this encounter (statuses as of 06/23/2022) [facility]2018 History of Past illness Narrative* Problem Noted Date Resolved Date Transient cerebral ischemia 12/09/201703/18 Orthostatic dizziness 04/02/2017 09/28/2017 Irritated//Inflamed Seborrheic Keratosis 014 10/03/2014 Pigmented Lentiginous Neopla sm Uncertain Behavior(NUB): R/O Lentigo Maligna at right hinduism//cheek face 02/13/2014 04/02/2017 Solar lentigo 02/13/2014 04/02/2017 Melanocytic nevus of trunk 02/13/201404/02 Hyponatremia 09/28/2012 10/03/2014 Actinic Keratosis: Premalignant AK 11/18/2011 10/03/2014 Skin tag 11/18/2011 09/25/2012 Intradermal nevus 11/18/2011 09/25/2012 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 013 Actinic skin damage 11/18/2011 09/25/2012 Solar lentigo 11/18/2011 09/25/2012 Depression 06/09/2011 09/25/2012 Insomnia 11/24/2009 09/25/2012 HYPERGLYCEMIA 10/16/2008 09/25/2012 Abdominal pain, right upper quadrant 05/15/2008 03/24/2010 Flatulence, eructation, and gas pain 05/15/2008 10/16/2008 Special screening for malignant neoplasms, colon 05/15/2008 10/16/2008 Acute, but ill-defined, cerebrovascular disease 12/29/2006 09/20/2011 Headache(784.0) 12/29/2006 03/24/2010 Personal history of colonic polyps 08/15/2006 04/04/2018 Overview: Colonoscopy - 15 May 2008 per [facility]WE[facility] 08/15/2006 03/10/2022 Cough 06/07/2006 10/08/2010 Chest pain, unspecified 10/09/19 11 Overview: [facility] adm 03/17-03/18/10- Nuclear stress test no ischemia or ST changes, EF 70%. F/u with cardiology CABG 2003 @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 Active CP in office 04/2010- to [facility] ED for eval- abn EKG, t-wave inversion documented as of this encounter (statuses as of 07/11/2022) [facility] History of Past illness Narrative* Problem Noted Date Resolved Date Transient cerebral ischemia 12/09/201703/18 Orthostatic dizziness 04/02/2017 09/28/2017 Irritated//Inflamed Seborrheic Keratosis 014 10/03/2014 Pigmented Lentiginous Neopla sm Uncertain Behavior(NUB): R/O Lentigo Maligna at right hinduism//cheek face 02/13/2014 04/02/2017 Solar lentigo 02/13/2014 04/02/2017 Melanocytic nevus of trunk 02/13/201404/02 Hyponatremia 09/28/2012 10/03/2014 Actinic Keratosis: Premalignant AK 11/18/2011 10/03/2014 Skin tag 11/18/2011 09/25/2012 Intradermal nevus 11/18/2011 09/25/2012 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 013 Actinic skin damage 11/18/2011 09/25/2012 Solar lentigo 11/18/2011 09/25/2012 Depression 06/09/2011 09/25/2012 Insomnia 11/24/2009 09/25/2012 HYPERGLYCEMIA 10/16/2008 09/25/2012 Abdominal pain, right upper quadrant 05/15/2008 03/24/2010 Flatulence, eructation, and gas pain 05/15/2008 10/16/2008 Special screening for malignant neoplasms, colon 05/15/2008 10/16/2008 Acute, but ill-defined, cerebrovascular disease 12/29/2006 09/20/2011 Headache(784.0) 12/29/2006 03/24/2010 Personal history of colonic polyps 08/15/2006 04/04/2018 Overview: Colonoscopy - 15 May 2008 per [facility]WE[facility] 08/15/2006 03/10/2022 Cough 06/07/2006 10/08/2010 Chest pain, unspecified 10/09/19 11 Overview: [facility] adm 03/17-03/18/10- Nuclear stress test no ischemia or ST changes, EF 70%. F/u with cardiology CABG 2003 @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 Active CP in office 04/2010- to [facility] ED for eval- abn EKG, t-wave inversion documented as of this encounter (statuses as of 07/20/2022) [facility]2018 History of Past illness Narrative* Problem Noted Date Resolved Date Transient cerebral ischemia 12/09/201703/18 Orthostatic dizziness 04/02/2017 09/28/2017 Irritated//Inflamed Seborrheic Keratosis 014 10/03/2014 Pigmented Lentiginous Neopla sm Uncertain Behavior(NUB): R/O Lentigo Maligna at right hinduism//cheek face 02/13/2014 04/02/2017 Solar lentigo 02/13/2014 04/02/2017 Melanocytic nevus of trunk 02/13/201404/02 Hyponatremia 09/28/2012 10/03/2014 Actinic Keratosis: Premalignant AK 11/18/2011 10/03/2014 Skin tag 11/18/2011 09/25/2012 Intradermal nevus 11/18/2011 09/25/2012 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 013 Actinic skin damage 11/18/2011 09/25/2012 Solar lentigo 11/18/2011 09/25/2012 Depression 06/09/2011 09/25/2012 Insomnia 11/24/2009 09/25/2012 HYPERGLYCEMIA 10/16/2008 09/25/2012 Abdominal pain, right upper quadrant 05/15/2008 03/24/2010 Flatulence, eructation, and gas pain 05/15/2008 10/16/2008 Special screening for malignant neoplasms, colon 05/15/2008 10/16/2008 Acute, but ill-defined, cerebrovascular disease 12/29/2006 09/20/2011 Headache(784.0) 12/29/2006 03/24/2010 Personal history of colonic polyps 08/15/2006 04/04/2018 Overview: Colonoscopy - 15 May 2008 per [facility] OVERWEIGHT 08/15/2006 03/10/2022 Cough 06/07/2006 10/08/2010 Chest pain, unspecified 10/09/19 11 Overview: [facility] adm 03/17-03/18/10- Nuclear stress test no ischemia or ST changes, EF 70%. F/u with cardiology CABG 2003 @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 Active CP in office 04/2010- to [facility] ED for eval- abn EKG, t-wave inversion documented as of this encounter (statuses as of 07/21/2022) [facility] History of Past illness Narrative* Problem Noted Date Resolved Date Transient cerebral ischemia 12/09/201703/18 Orthostatic dizziness 04/02/2017 09/28/2017 Irritated//Inflamed Seborrheic Keratosis 014 10/03/2014 Pigmented Lentiginous Neopla sm Uncertain Behavior(NUB): R/O Lentigo Maligna at right hinduism//cheek face 02/13/2014 04/02/2017 Solar lentigo 02/13/2014 04/02/2017 Melanocytic nevus of trunk 02/13/201404/02 Hyponatremia 09/28/2012 10/03/2014 Actinic Keratosis: Premalignant AK 11/18/2011 10/03/2014 Skin tag 11/18/2011 09/25/2012 Intradermal nevus 11/18/2011 09/25/2012 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 013 Actinic skin damage 11/18/2011 09/25/2012 Solar lentigo 11/18/2011 09/25/2012 Depression 06/09/2011 09/25/2012 Insomnia 11/24/2009 09/25/2012 HYPERGLYCEMIA 10/16/2008 09/25/2012 Abdominal pain, right upper quadrant 05/15/2008 03/24/2010 Flatulence, eructation, and gas pain 05/15/2008 10/16/2008 Special screening for malignant neoplasms, colon 05/15/2008 10/16/2008 Acute, but ill-defined, cerebrovascular disease 12/29/2006 09/20/2011 Headache(784.0) 12/29/2006 03/24/2010 Personal history of colonic polyps 08/15/2006 04/04/2018 Overview: Colonoscopy - 15 May 2008 per [facility] 08/15/2006 03/10/2022 Cough 06/07/2006 10/08/2010 Chest pain, unspecified 10/09/19 11 Overview: [facility] adm 03/17-03/18/10- Nuclear stress test no ischemia or ST changes, EF 70%. F/u with cardiology CABG 2003 @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 Active CP in office 04/2010- to [facility] ED for eval- abn EKG, t-wave inversion documented as of this encounter (statuses as of 07/24/2022) [facility] History of Past illness Narrative* Problem Noted Date Resolved Date Transient cerebral ischemia 12/09/201703/18 Orthostatic dizziness 04/02/2017 09/28/2017 Irritated//Inflamed Seborrheic Keratosis 014 10/03/2014 Pigmented Lentiginous Neopla sm Uncertain Behavior(NUB): R/O Lentigo Maligna at right hinduism//cheek face 02/13/2014 04/02/2017 Solar lentigo 02/13/2014 04/02/2017 Melanocytic nevus of trunk 02/13/201404/02 Hyponatremia 09/28/2012 10/03/2014 Actinic Keratosis: Premalignant AK 11/18/2011 10/03/2014 Skin tag 11/18/2011 09/25/2012 Intradermal nevus 11/18/2011 09/25/2012 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 013 Actinic skin damage 11/18/2011 09/25/2012 Solar lentigo 11/18/2011 09/25/2012 Depression 06/09/2011 09/25/2012 Insomnia 11/24/2009 09/25/2012 HYPERGLYCEMIA 10/16/2008 09/25/2012 Abdominal pain, right upper quadrant 05/15/2008 03/24/2010 Flatulence, eructation, and gas pain 05/15/2008 10/16/2008 Special screening for malignant neoplasms, colon 05/15/2008 10/16/2008 Acute, but ill-defined, cerebrovascular disease 12/29/2006 09/20/2011 Headache(784.0) 12/29/2006 03/24/2010 Personal history of colonic polyps 08/15/2006 04/04/2018 Overview: Colonoscopy - 15 May 2008 per [facility]WE[facility] 08/15/2006 03/10/2022 Cough 06/07/2006 10/08/2010 Chest pain, unspecified 10/09/19 11 Overview: [facility] adm 03/17-03/18/10- Nuclear stress test no ischemia or ST changes, EF 70%. F/u with cardiology CABG 2003 @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 Active CP in office 04/2010- to [facility] ED for eval- abn EKG, t-wave inversion documented as of this encounter (statuses as of 07/28/2022) [facility] History of Past illness Narrative* Problem Noted Date Resolved Date Transient cerebral ischemia 12/09/201703/18 Orthostatic dizziness 04/02/2017 09/28/2017 Irritated//Inflamed Seborrheic Keratosis 014 10/03/2014 Pigmented Lentiginous Neopla sm Uncertain Behavior(NUB): R/O Lentigo Maligna at right hinduism//cheek face 02/13/2014 04/02/2017 Solar lentigo 02/13/2014 04/02/2017 Melanocytic nevus of trunk 02/13/201404/02 Hyponatremia 09/28/2012 10/03/2014 Actinic Keratosis: Premalignant AK 11/18/2011 10/03/2014 Skin tag 11/18/2011 09/25/2012 Intradermal nevus 11/18/2011 09/25/2012 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 013 Actinic skin damage 11/18/2011 09/25/2012 Solar lentigo 11/18/2011 09/25/2012 Depression 06/09/2011 09/25/2012 Insomnia 11/24/2009 09/25/2012 HYPERGLYCEMIA 10/16/2008 09/25/2012 Abdominal pain, right upper quadrant 05/15/2008 03/24/2010 Flatulence, eructation, and gas pain 05/15/2008 10/16/2008 Special screening for malignant neoplasms, colon 05/15/2008 10/16/2008 Acute, but ill-defined, cerebrovascular disease 12/29/2006 09/20/2011 Headache(784.0) 12/29/2006 03/24/2010 Personal history of colonic polyps 08/15/2006 04/04/2018 Overview: Colonoscopy - 15 May 2008 per [facility] 08/15/2006 03/10/2022 Cough 06/07/2006 10/08/2010 Chest pain, unspecified 10/09/19 11 Overview: [facility] adm 03/17-03/18/10- Nuclear stress test no ischemia or ST changes, EF 70%. F/u with cardiology CABG 2003 @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 Active CP in office 04/2010- to [facility] ED for eval- abn EKG, t-wave inversion documented as of this encounter (statuses as of 07/28/2022) [facility] History of Past illness Narrative* Problem Noted Date Resolved Date Transient cerebral ischemia 12/09/201703/18 Orthostatic dizziness 04/02/2017 09/28/2017 Irritated//Inflamed Seborrheic Keratosis 014 10/03/2014 Pigmented Lentiginous Neopla sm Uncertain Behavior(NUB): R/O Lentigo Maligna at right hinduism//cheek face 02/13/2014 04/02/2017 Solar lentigo 02/13/2014 04/02/2017 Melanocytic nevus of trunk 02/13/201404/02 Hyponatremia 09/28/2012 10/03/2014 Actinic Keratosis: Premalignant AK 11/18/2011 10/03/2014 Skin tag 11/18/2011 09/25/2012 Intradermal nevus 11/18/2011 09/25/2012 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 013 Actinic skin damage 11/18/2011 09/25/2012 Solar lentigo 11/18/2011 09/25/2012 Depression 06/09/2011 09/25/2012 Insomnia 11/24/2009 09/25/2012 HYPERGLYCEMIA 10/16/2008 09/25/2012 Abdominal pain, right upper quadrant 05/15/2008 03/24/2010 Flatulence, eructation, and gas pain 05/15/2008 10/16/2008 Special screening for malignant neoplasms, colon 05/15/2008 10/16/2008 Acute, but ill-defined, cerebrovascular disease 12/29/2006 09/20/2011 Headache(784.0) 12/29/2006 03/24/2010 Personal history of colonic polyps 08/15/2006 04/04/2018 Overview: Colonoscopy - 15 May 2008 per [facility] OVERWEIGHT 08/15/2006 03/10/2022 Cough 06/07/2006 10/08/2010 Chest pain, unspecified 10/09/19 11 Overview: [facility] adm 03/17-03/18/10- Nuclear stress test no ischemia or ST changes, EF 70%. F/u with cardiology CABG 2003 @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 Active CP in office 04/2010- to [facility] ED for eval- abn EKG, t-wave inversion documented as of this encounter (statuses as of 08/26/2022) [facility] History of Past illness Narrative* Problem Noted Date Resolved Date Transient cerebral ischemia 12/09/201703/18 Orthostatic dizziness 04/02/2017 09/28/2017 Irritated//Inflamed Seborrheic Keratosis 014 10/03/2014 Pigmented Lentiginous Neopla sm Uncertain Behavior(NUB): R/O Lentigo Maligna at right hinduism//cheek face 02/13/2014 04/02/2017 Solar lentigo 02/13/2014 04/02/2017 Melanocytic nevus of trunk 02/13/201404/02 Hyponatremia 09/28/2012 10/03/2014 Actinic Keratosis: Premalignant AK 11/18/2011 10/03/2014 Skin tag 11/18/2011 09/25/2012 Intradermal nevus 11/18/2011 09/25/2012 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 013 Actinic skin damage 11/18/2011 09/25/2012 Solar lentigo 11/18/2011 09/25/2012 Depression 06/09/2011 09/25/2012 Insomnia 11/24/2009 09/25/2012 HYPERGLYCEMIA 10/16/2008 09/25/2012 Abdominal pain, right upper quadrant 05/15/2008 03/24/2010 Flatulence, eructation, and gas pain 05/15/2008 10/16/2008 Special screening for malignant neoplasms, colon 05/15/2008 10/16/2008 Acute, but ill-defined, cerebrovascular disease 12/29/2006 09/20/2011 Headache(784.0) 12/29/2006 03/24/2010 Personal history of colonic polyps 08/15/2006 04/04/2018 Overview: Colonoscopy - 15 May 2008 per [facility] OVERWEIGHT 08/15/2006 03/10/2022 Cough 06/07/2006 10/08/2010 Chest pain, unspecified 10/09/19 11 Overview: [facility] adm 03/17-03/18/10- Nuclear stress test no ischemia or ST changes, EF 70%. F/u with cardiology CABG 2003 @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 Active CP in office 04/2010- to [facility] ED for eval- abn EKG, t-wave inversion documented as of this encounter (statuses as of 08/27/2022) [facility] History of Past illness Narrative* Problem Noted Date Resolved Date Transient cerebral ischemia 12/09/201703/18 Orthostatic dizziness 04/02/2017 09/28/2017 Irritated//Inflamed Seborrheic Keratosis 014 10/03/2014 Pigmented Lentiginous Neopla sm Uncertain Behavior(NUB): R/O Lentigo Maligna at right hinduism//cheek face 02/13/2014 04/02/2017 Solar lentigo 02/13/2014 04/02/2017 Melanocytic nevus of trunk 02/13/201404/02 Hyponatremia 09/28/2012 10/03/2014 Actinic Keratosis: Premalignant AK 11/18/2011 10/03/2014 Skin tag 11/18/2011 09/25/2012 Intradermal nevus 11/18/2011 09/25/2012 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 013 Actinic skin damage 11/18/2011 09/25/2012 Solar lentigo 11/18/2011 09/25/2012 Depression 06/09/2011 09/25/2012 Insomnia 11/24/2009 09/25/2012 HYPERGLYCEMIA 10/16/2008 09/25/2012 Abdominal pain, right upper quadrant 05/15/2008 03/24/2010 Flatulence, eructation, and gas pain 05/15/2008 10/16/2008 Special screening for malignant neoplasms, colon 05/15/2008 10/16/2008 Acute, but ill-defined, cerebrovascular disease 12/29/2006 09/20/2011 Headache(784.0) 12/29/2006 03/24/2010 Personal history of colonic polyps 08/15/2006 04/04/2018 Overview: Colonoscopy - 15 May 2008 per [facility] OVERWEIGHT 08/15/2006 03/10/2022 Cough 06/07/2006 10/08/2010 Chest pain, unspecified 10/09/19 11 Overview: [facility] adm 03/17-03/18/10- Nuclear stress test no ischemia or ST changes, EF 70%. F/u with cardiology CABG 2003 @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 Active CP in office 04/2010- to [facility] ED for eval- abn EKG, t-wave inversion documented as of this encounter (statuses as of 09/01/2022) [facility] History of Past illness Narrative* Problem Noted Date Resolved Date Transient cerebral ischemia 12/09/201703/18 Orthostatic dizziness 04/02/2017 09/28/2017 Irritated//Inflamed Seborrheic Keratosis 014 10/03/2014 Pigmented Lentiginous Neopla sm Uncertain Behavior(NUB): R/O Lentigo Maligna at right hinduism//cheek face 02/13/2014 04/02/2017 Solar lentigo 02/13/2014 04/02/2017 Melanocytic nevus of trunk 02/13/201404/02 Hyponatremia 09/28/2012 10/03/2014 Actinic Keratosis: Premalignant AK 11/18/2011 10/03/2014 Skin tag 11/18/2011 09/25/2012 Intradermal nevus 11/18/2011 09/25/2012 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 013 Actinic skin damage 11/18/2011 09/25/2012 Solar lentigo 11/18/2011 09/25/2012 Depression 06/09/2011 09/25/2012 Insomnia 11/24/2009 09/25/2012 HYPERGLYCEMIA 10/16/2008 09/25/2012 Abdominal pain, right upper quadrant 05/15/2008 03/24/2010 Flatulence, eructation, and gas pain 05/15/2008 10/16/2008 Special screening for malignant neoplasms, colon 05/15/2008 10/16/2008 Acute, but ill-defined, cerebrovascular disease 12/29/2006 09/20/2011 Headache(784.0) 12/29/2006 03/24/2010 Personal history of colonic polyps 08/15/2006 04/04/2018 Overview: Colonoscopy - 15 May 2008 per [facility] OVERWEIGHT 08/15/2006 03/10/2022 Cough 06/07/2006 10/08/2010 Chest pain, unspecified 10/09/19 11 Overview: [facility] adm 03/17-03/18/10- Nuclear stress test no ischemia or ST changes, EF 70%. F/u with cardiology CABG 2003 @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 Active CP in office 04/2010- to [facility] ED for eval- abn EKG, t-wave inversion documented as of this encounter (statuses as of 09/22/2022) [facility]05-25-2018 History of Past illness Narrative* Problem Noted Date Resolved Date Transient cerebral ischemia 12/09/201703/18 Orthostatic dizziness 04/02/2017 09/28/2017 Irritated//Inflamed Seborrheic Keratosis 014 10/03/2014 Pigmented Lentiginous Neopla sm Uncertain Behavior(NUB): R/O Lentigo Maligna at right hinduism//cheek face 02/13/2014 04/02/2017 Solar lentigo 02/13/2014 04/02/2017 Melanocytic nevus of trunk 02/13/201404/02 Hyponatremia 09/28/2012 10/03/2014 Actinic Keratosis: Premalignant AK 11/18/2011 10/03/2014 Skin tag 11/18/2011 09/25/2012 Intradermal nevus 11/18/2011 09/25/2012 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 013 Actinic skin damage 11/18/2011 09/25/2012 Solar lentigo 11/18/2011 09/25/2012 Depression 06/09/2011 09/25/2012 Insomnia 11/24/2009 09/25/2012 HYPERGLYCEMIA 10/16/2008 09/25/2012 Abdominal pain, right upper quadrant 05/15/2008 03/24/2010 Flatulence, eructation, and gas pain 05/15/2008 10/16/2008 Special screening for malignant neoplasms, colon 05/15/2008 10/16/2008 Acute, but ill-defined, cerebrovascular disease 12/29/2006 09/20/2011 Headache(784.0) 12/29/2006 03/24/2010 Personal history of colonic polyps 08/15/2006 04/04/2018 Overview: Colonoscopy - 15 May 2008 per [facility] 08/15/2006 03/10/2022 Cough 06/07/2006 10/08/2010 Chest pain, unspecified 10/09/19 11 Overview: [facility] adm 03/17-03/18/10- Nuclear stress test no ischemia or ST changes, EF 70%. F/u with cardiology CABG 2003 @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 Active CP in office 04/2010- to [facility] ED for eval- abn EKG, t-wave inversion documented as of this encounter (statuses as of 10/01/2022) [facility]05-[facility]2018 History of Past illness Narrative* Problem Noted Date Resolved Date Transient cerebral ischemia 12/09/201703/18 Orthostatic dizziness 04/02/2017 09/28/2017 Irritated//Inflamed Seborrheic Keratosis 014 10/03/2014 Pigmented Lentiginous Neopla sm Uncertain Behavior(NUB): R/O Lentigo Maligna at right hinduism//cheek face 02/13/2014 04/02/2017 Solar lentigo 02/13/2014 04/02/2017 Melanocytic nevus of trunk 02/13/201404/02 Hyponatremia 09/28/2012 10/03/2014 Actinic Keratosis: Premalignant AK 11/18/2011 10/03/2014 Skin tag 11/18/2011 09/25/2012 Intradermal nevus 11/18/2011 09/25/2012 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 013 Actinic skin damage 11/18/2011 09/25/2012 Solar lentigo 11/18/2011 09/25/2012 Depression 06/09/2011 09/25/2012 Insomnia 11/24/2009 09/25/2012 HYPERGLYCEMIA 10/16/2008 09/25/2012 Abdominal pain, right upper quadrant 05/15/2008 03/24/2010 Flatulence, eructation, and gas pain 05/15/2008 10/16/2008 Special screening for malignant neoplasms, colon 05/15/2008 10/16/2008 Acute, but ill-defined, cerebrovascular disease 12/29/2006 09/20/2011 Headache(784.0) 12/29/2006 03/24/2010 Personal history of colonic polyps 08/15/2006 04/04/2018 Overview: Colonoscopy - 15 May 2008 per [facility] 08/15/2006 03/10/2022 Cough 06/07/2006 10/08/2010 Chest pain, unspecified 10/09/19 11 Overview: [facility] adm 03/17-03/18/10- Nuclear stress test no ischemia or ST changes, EF 70%. F/u with cardiology CABG 2003 @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 Active CP in office 04/2010- to [facility] ED for eval- abn EKG, t-wave inversion documented as of this encounter (statuses as of 10/15/2022) [facility]2018 History of Past illness Narrative* Problem Noted Date Resolved Date Transient cerebral ischemia 12/09/201703/18 Orthostatic dizziness 04/02/2017 09/28/2017 Irritated//Inflamed Seborrheic Keratosis 014 10/03/2014 Pigmented Lentiginous Neopla sm Uncertain Behavior(NUB): R/O Lentigo Maligna at right hinduism//cheek face 02/13/2014 04/02/2017 Solar lentigo 02/13/2014 04/02/2017 Melanocytic nevus of trunk 02/13/201404/02 Hyponatremia 09/28/2012 10/03/2014 Actinic Keratosis: Premalignant AK 11/18/2011 10/03/2014 Skin tag 11/18/2011 09/25/2012 Intradermal nevus 11/18/2011 09/25/2012 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 013 Actinic skin damage 11/18/2011 09/25/2012 Solar lentigo 11/18/2011 09/25/2012 Depression 06/09/2011 09/25/2012 Insomnia 11/24/2009 09/25/2012 HYPERGLYCEMIA 10/16/2008 09/25/2012 Abdominal pain, right upper quadrant 05/15/2008 03/24/2010 Flatulence, eructation, and gas pain 05/15/2008 10/16/2008 Special screening for malignant neoplasms, colon 05/15/2008 10/16/2008 Acute, but ill-defined, cerebrovascular disease 12/29/2006 09/20/2011 Headache(784.0) 12/29/2006 03/24/2010 Personal history of colonic polyps 08/15/2006 04/04/2018 Overview: Colonoscopy - 15 May 2008 per [facility] 08/15/2006 03/10/2022 Cough 06/07/2006 10/08/2010 Chest pain, unspecified 10/09/19 11 Overview: [facility] adm 03/17-03/18/10- Nuclear stress test no ischemia or ST changes, EF 70%. F/u with cardiology CABG 2003 @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 Active CP in office 04/2010- to [facility] ED for eval- abn EKG, t-wave inversion documented as of this encounter (statuses as of 10/21/2022) [facility]05-[facility]2018 History of Past illness Narrative* Problem Noted Date Resolved Date Transient cerebral ischemia 12/09/201703/18 Orthostatic dizziness 04/02/2017 09/28/2017 Irritated//Inflamed Seborrheic Keratosis 014 10/03/2014 Pigmented Lentiginous Neopla sm Uncertain Behavior(NUB): R/O Lentigo Maligna at right hinduism//cheek face 02/13/2014 04/02/2017 Solar lentigo 02/13/2014 04/02/2017 Melanocytic nevus of trunk 02/13/201404/02 Hyponatremia 09/28/2012 10/03/2014 Actinic Keratosis: Premalignant AK 11/18/2011 10/03/2014 Skin tag 11/18/2011 09/25/2012 Intradermal nevus 11/18/2011 09/25/2012 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 013 Actinic skin damage 11/18/2011 09/25/2012 Solar lentigo 11/18/2011 09/25/2012 Depression 06/09/2011 09/25/2012 Insomnia 11/24/2009 09/25/2012 HYPERGLYCEMIA 10/16/2008 09/25/2012 Abdominal pain, right upper quadrant 05/15/2008 03/24/2010 Flatulence, eructation, and gas pain 05/15/2008 10/16/2008 Special screening for malignant neoplasms, colon 05/15/2008 10/16/2008 Acute, but ill-defined, cerebrovascular disease 12/29/2006 09/20/2011 Headache(784.0) 12/29/2006 03/24/2010 Personal history of colonic polyps 08/15/2006 04/04/2018 Overview: Colonoscopy - 15 May 2008 per [facility] 08/15/2006 03/10/2022 Cough 06/07/2006 10/08/2010 Chest pain, unspecified 10/09/19 11 Overview: [facility] adm 03/17-03/18/10- Nuclear stress test no ischemia or ST changes, EF 70%. F/u with cardiology CABG 2003 @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 Active CP in office 04/2010- to [facility] ED for eval- abn EKG, t-wave inversion documented as of this encounter (statuses as of 11/04/2022) [facility]2018 History of Past illness Narrative* Problem Noted Date Resolved Date Transient cerebral ischemia 12/09/201703/18 Orthostatic dizziness 04/02/2017 09/28/2017 Irritated//Inflamed Seborrheic Keratosis 014 10/03/2014 Pigmented Lentiginous Neopla sm Uncertain Behavior(NUB): R/O Lentigo Maligna at right hinduism//cheek face 02/13/2014 04/02/2017 Solar lentigo 02/13/2014 04/02/2017 Melanocytic nevus of trunk 02/13/201404/02 Hyponatremia 09/28/2012 10/03/2014 Actinic Keratosis: Premalignant AK 11/18/2011 10/03/2014 Skin tag 11/18/2011 09/25/2012 Intradermal nevus 11/18/2011 09/25/2012 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 013 Actinic skin damage 11/18/2011 09/25/2012 Solar lentigo 11/18/2011 09/25/2012 Depression 06/09/2011 09/25/2012 Insomnia 11/24/2009 09/25/2012 HYPERGLYCEMIA 10/16/2008 09/25/2012 Abdominal pain, right upper quadrant 05/15/2008 03/24/2010 Flatulence, eructation, and gas pain 05/15/2008 10/16/2008 Special screening for malignant neoplasms, colon 05/15/2008 10/16/2008 Acute, but ill-defined, cerebrovascular disease 12/29/2006 09/20/2011 Headache(784.0) 12/29/2006 03/24/2010 Personal history of colonic polyps 08/15/2006 04/04/2018 Overview: Colonoscopy - 15 May 2008 per [facility] 08/15/2006 03/10/2022 Cough 06/07/2006 10/08/2010 Chest pain, unspecified 10/09/19 11 Overview: [facility] adm 03/17-03/18/10- Nuclear stress test no ischemia or ST changes, EF 70%. F/u with cardiology CABG 2003 @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 Active CP in office 04/2010- to [facility] ED for eval- abn EKG, t-wave inversion documented as of this encounter (statuses as of 11/05/2022) [facility]2018 History of Past illness Narrative* Problem Noted Date Resolved Date Transient cerebral ischemia 12/09/201703/18 Orthostatic dizziness 04/02/2017 09/28/2017 Irritated//Inflamed Seborrheic Keratosis 014 10/03/2014 Pigmented Lentiginous Neopla sm Uncertain Behavior(NUB): R/O Lentigo Maligna at right hinduism//cheek face 02/13/2014 04/02/2017 Solar lentigo 02/13/2014 04/02/2017 Melanocytic nevus of trunk 02/13/201404/02 Hyponatremia 09/28/2012 10/03/2014 Actinic Keratosis: Premalignant AK 11/18/2011 10/03/2014 Skin tag 11/18/2011 09/25/2012 Intradermal nevus 11/18/2011 09/25/2012 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 013 Actinic skin damage 11/18/2011 09/25/2012 Solar lentigo 11/18/2011 09/25/2012 Depression 06/09/2011 09/25/2012 Insomnia 11/24/2009 09/25/2012 HYPERGLYCEMIA 10/16/2008 09/25/2012 Abdominal pain, right upper quadrant 05/15/2008 03/24/2010 Flatulence, eructation, and gas pain 05/15/2008 10/16/2008 Special screening for malignant neoplasms, colon 05/15/2008 10/16/2008 Acute, but ill-defined, cerebrovascular disease 12/29/2006 09/20/2011 Headache(784.0) 12/29/2006 03/24/2010 Personal history of colonic polyps 08/15/2006 04/04/2018 Overview: Colonoscopy - 15 May 2008 per [facility] 08/15/2006 03/10/2022 Cough 06/07/2006 10/08/2010 Chest pain, unspecified 10/09/19 11 Overview: [facility] adm 03/17-03/18/10- Nuclear stress test no ischemia or ST changes, EF 70%. F/u with cardiology CABG 2003 @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 Active CP in office 04/2010- to [facility] ED for eval- abn EKG, t-wave inversion documented as of this encounter (statuses as of 11/12/2022) [facility]2018 History of Past illness Narrative* Problem Noted Date Resolved Date Transient cerebral ischemia 12/09/201703/18 Orthostatic dizziness 04/02/2017 09/28/2017 Irritated//Inflamed Seborrheic Keratosis 014 10/03/2014 Pigmented Lentiginous Neopla sm Uncertain Behavior(NUB): R/O Lentigo Maligna at right hinduism//cheek face 02/13/2014 04/02/2017 Solar lentigo 02/13/2014 04/02/2017 Melanocytic nevus of trunk 02/13/201404/02 Hyponatremia 09/28/2012 10/03/2014 Actinic Keratosis: Premalignant AK 11/18/2011 10/03/2014 Skin tag 11/18/2011 09/25/2012 Intradermal nevus 11/18/2011 09/25/2012 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 013 Actinic skin damage 11/18/2011 09/25/2012 Solar lentigo 11/18/2011 09/25/2012 Depression 06/09/2011 09/25/2012 Insomnia 11/24/2009 09/25/2012 HYPERGLYCEMIA 10/16/2008 09/25/2012 Abdominal pain, right upper quadrant 05/15/2008 03/24/2010 Flatulence, eructation, and gas pain 05/15/2008 10/16/2008 Special screening for malignant neoplasms, colon 05/15/2008 10/16/2008 Acute, but ill-defined, cerebrovascular disease 12/29/2006 09/20/2011 Headache(784.0) 12/29/2006 03/24/2010 Personal history of colonic polyps 08/15/2006 04/04/2018 Overview: Colonoscopy - 15 May 2008 per [facility] 08/15/2006 03/10/2022 Cough 06/07/2006 10/08/2010 Chest pain, unspecified 10/09/19 11 Overview: [facility] adm 03/17-03/18/10- Nuclear stress test no ischemia or ST changes, EF 70%. F/u with cardiology CABG 2003 @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 Active CP in office 04/2010- to [facility] ED for eval- abn EKG, t-wave inversion documented as of this encounter (statuses as of 11/22/2022) [facility]2018 History of Past illness Narrative* Problem Noted Date Resolved Date Transient cerebral ischemia 12/09/201703/18 Orthostatic dizziness 04/02/2017 09/28/2017 Irritated//Inflamed Seborrheic Keratosis 014 10/03/2014 Pigmented Lentiginous Neopla sm Uncertain Behavior(NUB): R/O Lentigo Maligna at right hinduism//cheek face 02/13/2014 04/02/2017 Solar lentigo 02/13/2014 04/02/2017 Melanocytic nevus of trunk 02/13/201404/02 Hyponatremia 09/28/2012 10/03/2014 Actinic Keratosis: Premalignant AK 11/18/2011 10/03/2014 Skin tag 11/18/2011 09/25/2012 Intradermal nevus 11/18/2011 09/25/2012 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 013 Actinic skin damage 11/18/2011 09/25/2012 Solar lentigo 11/18/2011 09/25/2012 Depression 06/09/2011 09/25/2012 Insomnia 11/24/2009 09/25/2012 HYPERGLYCEMIA 10/16/2008 09/25/2012 Abdominal pain, right upper quadrant 05/15/2008 03/24/2010 Flatulence, eructation, and gas pain 05/15/2008 10/16/2008 Special screening for malignant neoplasms, colon 05/15/2008 10/16/2008 Acute, but ill-defined, cerebrovascular disease 12/29/2006 09/20/2011 Headache(784.0) 12/29/2006 03/24/2010 Personal history of colonic polyps 08/15/2006 04/04/2018 Overview: Colonoscopy - 15 May 2008 per [facility] 08/15/2006 03/10/2022 Cough 06/07/2006 10/08/2010 Chest pain, unspecified 10/09/19 11 Overview: [facility] adm 03/17-03/18/10- Nuclear stress test no ischemia or ST changes, EF 70%. F/u with cardiology CABG 2003 @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 Active CP in office 04/2010- to [facility] ED for eval- abn EKG, t-wave inversion documented as of this encounter (statuses as of 12/31/2022) [facility] History of Past illness Narrative* Problem Noted Date Resolved Date Transient cerebral ischemia 12/09/201703/18 Orthostatic dizziness 04/02/2017 09/28/2017 Irritated//Inflamed Seborrheic Keratosis 014 10/03/2014 Pigmented Lentiginous Neopla sm Uncertain Behavior(NUB): R/O Lentigo Maligna at right hinduism//cheek face 02/13/2014 04/02/2017 Solar lentigo 02/13/2014 04/02/2017 Melanocytic nevus of trunk 02/13/201404/02 Hyponatremia 09/28/2012 10/03/2014 Actinic Keratosis: Premalignant AK 11/18/2011 10/03/2014 Skin tag 11/18/2011 09/25/2012 Intradermal nevus 11/18/2011 09/25/2012 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 013 Actinic skin damage 11/18/2011 09/25/2012 Solar lentigo 11/18/2011 09/25/2012 Depression 06/09/2011 09/25/2012 Insomnia 11/24/2009 09/25/2012 HYPERGLYCEMIA 10/16/2008 09/25/2012 Abdominal pain, right upper quadrant 05/15/2008 03/24/2010 Flatulence, eructation, and gas pain 05/15/2008 10/16/2008 Special screening for malignant neoplasms, colon 05/15/2008 10/16/2008 Acute, but ill-defined, cerebrovascular disease 12/29/2006 09/20/2011 Headache(784.0) 12/29/2006 03/24/2010 Personal history of colonic polyps 08/15/2006 04/04/2018 Overview: Colonoscopy - 15 May 2008 per [facility] 08/15/2006 03/10/2022 Cough 06/07/2006 10/08/2010 Chest pain, unspecified 10/09/19 11 Overview: [facility] adm 03/17-03/18/10- Nuclear stress test no ischemia or ST changes, EF 70%. F/u with cardiology CABG 2003 @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 Active CP in office 04/2010- to [facility] ED for eval- abn EKG, t-wave inversion documented as of this encounter (statuses as of 01/11/2023) [facility] History of Past illness Narrative* Problem Noted Date Diagnosed Date Resolved Date Transient cerebral ischemia 12/09/2017 04/04/2018 Orthostatic dizziness 04/02/20172017 Irritated//Inflamed Seborrheic Keratosis 02/13/2014 10/03/2014 Pigmented Lentiginous Neopla sm Uncertain Behavior(NUB): R/O Lentigo Maligna at right hinduism//cheek face 02/13/2014 04/02/2017 Solar lentigo 02/13/2014 04/02/2017 Melanocytic nevus of trunk 02/13/2014 0 04/02/2017 Hyponatremia 09/28/2012 10/03/2014 Actinic Keratosis: Premalignant AK 11/18/2011 10/03/2014 Skin tag 11/18/2011 09/25/2012 Intradermal nevus 11/18/2011 09/25/2012 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05/2013 Actinic skin damage 11/18/2011 09/26/19 13 Solar lentigo 11/18/2011 09/25/2012 Depression 06/09/2011 09/25/2012 Insomnia 11/24/2009 09/25/2012 HYPERGLYCEMIA 10/16/2008 09/25/2012 Abdominal pain, right upper quadrant 05/15/2008 03/24/2010 Flatulence, eructation, and gas pain 05/15/2008 10/16/2008 Special screening for malign ant neoplasms, colon 05/15/2008 10/16/2008 Acute, but ill-defined, cere brovascular disease 12/29/2006 09/20/2011 Headache(784.0) 12/29/2006 03/24/2010 Personal history of colonic polyps 08/15/2006 04/04/2018 Overview: Colonoscopy - 15 May 2008 per [facility] 08/15/2006 03/10/2022 Cough 06/07/2006 10/08/2010 Chest pain, unspecified 09/16 Overview: [facility] adm 03/17-03/18/10- Nuclear stress test no ischemia or ST changes, EF 70%. F/u with cardiology CABG 2003 @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 Active CP in office 04/2010- to [facility] ED for eval- abn EKG, t-wave inversion documented as of this encounter (statuses as of 03/08/2023) [facility] History of Past illness Narrative* Problem Noted Date Diagnosed Date Resolved Date Transient cerebral ischemia 12/09/2017 04/04/2018 Orthostatic dizziness 04/02/20172017 Irritated//Inflamed Seborrheic Keratosis 02/13/2014 10/03/2014 Pigmented Lentiginous Neopla sm Uncertain Behavior(NUB): R/O Lentigo Maligna at right hinduism//cheek face 02/13/2014 04/02/2017 Solar lentigo 02/13/2014 04/02/2017 Melanocytic nevus of trunk 02/13/2014 0 04/02/2017 Hyponatremia 09/28/2012 10/03/2014 Actinic Keratosis: Premalignant AK 11/18/2011 10/03/2014 Skin tag 11/18/2011 09/25/2012 Intradermal nevus 11/18/2011 09/25/2012 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05/2013 Actinic skin damage 11/18/2011 09/26/19 13 Solar lentigo 11/18/2011 09/25/2012 Depression 06/09/2011 09/25/2012 Insomnia 11/24/2009 09/25/2012 HYPERGLYCEMIA 10/16/2008 09/25/2012 Abdominal pain, right upper quadrant 05/15/2008 03/24/2010 Flatulence, eructation, and gas pain 05/15/2008 10/16/2008 Special screening for malign ant neoplasms, colon 05/15/2008 10/16/2008 Acute, but ill-defined, cere brovascular disease 12/29/2006 09/20/2011 Headache(784.0) 12/29/2006 03/24/2010 Personal history of colonic polyps 08/15/2006 04/04/2018 Overview: Colonoscopy - 15 May 2008 per [facility] 08/15/2006 03/10/2022 Cough 06/07/2006 10/08/2010 Chest pain, unspecified 09/16 Overview: [facility] adm 03/17-03/18/10- Nuclear stress test no ischemia or ST changes, EF 70%. F/u with cardiology CABG 2003 @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 Active CP in office 04/2010- to [facility] ED for eval- abn EKG, t-wave inversion documented as of this encounter (statuses as of 04/07/2023) [facility] History of Past illness Narrative* Problem Noted Date Diagnosed Date Resolved Date Transient cerebral ischemia 12/09/2017 04/04/2018 Orthostatic dizziness 04/02/20172017 Irritated//Inflamed Seborrheic Keratosis 02/13/2014 10/03/2014 Pigmented Lentiginous Neopla sm Uncertain Behavior(NUB): R/O Lentigo Maligna at right hinduism//cheek face 02/13/2014 04/02/2017 Solar lentigo 02/13/2014 04/02/2017 Melanocytic nevus of trunk 02/13/2014 0 04/02/2017 Hyponatremia 09/28/2012 10/03/2014 Actinic Keratosis: Premalignant AK 11/18/2011 10/03/2014 Skin tag 11/18/2011 09/25/2012 Intradermal nevus 11/18/2011 09/25/2012 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05/2013 Actinic skin damage 11/18/2011 09/26/19 13 Solar lentigo 11/18/2011 09/25/2012 Depression 06/09/2011 09/25/2012 Insomnia 11/24/2009 09/25/2012 HYPERGLYCEMIA 10/16/2008 09/25/2012 Abdominal pain, right upper quadrant 05/15/2008 03/24/2010 Flatulence, eructation, and gas pain 05/15/2008 10/16/2008 Special screening for malign ant neoplasms, colon 05/15/2008 10/16/2008 Acute, but ill-defined, cere brovascular disease 12/29/2006 09/20/2011 Headache(784.0) 12/29/2006 03/24/2010 Personal history of colonic polyps 08/15/2006 04/04/2018 Overview: Colonoscopy - 15 May 2008 per [facility]WE[facility] 08/15/2006 03/10/2022 Cough 06/07/2006 10/08/2010 Chest pain, unspecified 09/16 Overview: [facility] adm 03/17-03/18/10- Nuclear stress test no ischemia or ST changes, EF 70%. F/u with cardiology CABG 2003 @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 Active CP in office 04/2010- to [facility] ED for eval- abn EKG, t-wave inversion documented as of this encounter (statuses as of 04/12/2023) [facility] History of Past illness Narrative* Problem Noted Date Diagnosed Date Resolved Date Transient cerebral ischemia 12/09/2017 04/04/2018 Orthostatic dizziness 04/02/20172017 Irritated//Inflamed Seborrheic Keratosis 02/13/2014 10/03/2014 Pigmented Lentiginous Neopla sm Uncertain Behavior(NUB): R/O Lentigo Maligna at right hinduism//cheek face 02/13/2014 04/02/2017 Solar lentigo 02/13/2014 04/02/2017 Melanocytic nevus of trunk 02/13/2014 0 04/02/2017 Hyponatremia 09/28/2012 10/03/2014 Actinic Keratosis: Premalignant AK 11/18/2011 10/03/2014 Skin tag 11/18/2011 09/25/2012 Intradermal nevus 11/18/2011 09/25/2012 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05/2013 Actinic skin damage 11/18/2011 09/26/19 13 Solar lentigo 11/18/2011 09/25/2012 Depression 06/09/2011 09/25/2012 Insomnia 11/24/2009 09/25/2012 HYPERGLYCEMIA 10/16/2008 09/25/2012 Abdominal pain, right upper quadrant 05/15/2008 03/24/2010 Flatulence, eructation, and gas pain 05/15/2008 10/16/2008 Special screening for malign ant neoplasms, colon 05/15/2008 10/16/2008 Acute, but ill-defined, cere brovascular disease 12/29/2006 09/20/2011 Headache(784.0) 12/29/2006 03/24/2010 Personal history of colonic polyps 08/15/2006 04/04/2018 Overview: Colonoscopy - 15 May 2008 per [facility] OVERWEIGHT 08/15/2006 03/10/2022 Cough 06/07/2006 10/08/2010 Chest pain, unspecified 09/16 Overview: [facility] adm 03/17-03/18/10- Nuclear stress test no ischemia or ST changes, EF 70%. F/u with cardiology CABG 2003 @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 Active CP in office 04/2010- to [facility] ED for eval- abn EKG, t-wave inversion documented as of this encounter (statuses as of 04/15/2023) [facility] History of Past illness Narrative* Problem Noted Date Diagnosed Date Resolved Date Transient cerebral ischemia 12/09/2017 04/04/2018 Orthostatic dizziness 04/02/20172017 Irritated//Inflamed Seborrheic Keratosis 02/13/2014 10/03/2014 Pigmented Lentiginous Neopla sm Uncertain Behavior(NUB): R/O Lentigo Maligna at right hinduism//cheek face 02/13/2014 04/02/2017 Solar lentigo 02/13/2014 04/02/2017 Melanocytic nevus of trunk 02/13/2014 0 04/02/2017 Hyponatremia 09/28/2012 10/03/2014 Actinic Keratosis: Premalignant AK 11/18/2011 10/03/2014 Skin tag 11/18/2011 09/25/2012 Intradermal nevus 11/18/2011 09/25/2012 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05/2013 Actinic skin damage 11/18/2011 09/26/19 13 Solar lentigo 11/18/2011 09/25/2012 Depression 06/09/2011 09/25/2012 Insomnia 11/24/2009 09/25/2012 HYPERGLYCEMIA 10/16/2008 09/25/2012 Abdominal pain, right upper quadrant 05/15/2008 03/24/2010 Flatulence, eructation, and gas pain 05/15/2008 10/16/2008 Special screening for malign ant neoplasms, colon 05/15/2008 10/16/2008 Acute, but ill-defined, cere brovascular disease 12/29/2006 09/20/2011 Headache(784.0) 12/29/2006 03/24/2010 Personal history of colonic polyps 08/15/2006 04/04/2018 Overview: Colonoscopy - 15 May 2008 per [facility] OVERWEIGHT 08/15/2006 03/10/2022 Cough 06/07/2006 10/08/2010 Chest pain, unspecified 09/16 Overview: [facility] adm 03/17-03/18/10- Nuclear stress test no ischemia or ST changes, EF 70%. F/u with cardiology CABG 2003 @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 Active CP in office 04/2010- to [facility] ED for eval- abn EKG, t-wave inversion documented as of this encounter (statuses as of 04/16/2023) [facility] History of Past illness Narrative* Problem Noted Date Diagnosed Date Resolved Date Transient cerebral ischemia 12/09/2017 04/04/2018 Orthostatic dizziness 04/02/20172017 Irritated//Inflamed Seborrheic Keratosis 02/13/2014 10/03/2014 Pigmented Lentiginous Neopla sm Uncertain Behavior(NUB): R/O Lentigo Maligna at right hinduism//cheek face 02/13/2014 04/02/2017 Solar lentigo 02/13/2014 04/02/2017 Melanocytic nevus of trunk 02/13/2014 0 04/02/2017 Hyponatremia 09/28/2012 10/03/2014 Actinic Keratosis: Premalignant AK 11/18/2011 10/03/2014 Skin tag 11/18/2011 09/25/2012 Intradermal nevus 11/18/2011 09/25/2012 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05/2013 Actinic skin damage 11/18/2011 09/26/19 13 Solar lentigo 11/18/2011 09/25/2012 Depression 06/09/2011 09/25/2012 Insomnia 11/24/2009 09/25/2012 HYPERGLYCEMIA 10/16/2008 09/25/2012 Abdominal pain, right upper quadrant 05/15/2008 03/24/2010 Flatulence, eructation, and gas pain 05/15/2008 10/16/2008 Special screening for malign ant neoplasms, colon 05/15/2008 10/16/2008 Acute, but ill-defined, cere brovascular disease 12/29/2006 09/20/2011 Headache(784.0) 12/29/2006 03/24/2010 Personal history of colonic polyps 08/15/2006 04/04/2018 Overview: Colonoscopy - 15 May 2008 per [facility] 08/15/2006 03/10/2022 Cough 06/07/2006 10/08/2010 Chest pain, unspecified 09/16 Overview: [facility] adm 03/17-03/18/10- Nuclear stress test no ischemia or ST changes, EF 70%. F/u with cardiology CABG 2003 @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 Active CP in office 04/2010- to [facility] ED for eval- abn EKG, t-wave inversion documented as of this encounter (statuses as of 04/29/2023) [facility] History of Past illness Narrative* Problem Noted Date Diagnosed Date Resolved Date Transient cerebral ischemia 12/09/2017 04/04/2018 Orthostatic dizziness 04/02/20172017 Irritated//Inflamed Seborrheic Keratosis 02/13/2014 10/03/2014 Pigmented Lentiginous Neopla sm Uncertain Behavior(NUB): R/O Lentigo Maligna at right hinduism//cheek face 02/13/2014 04/02/2017 Solar lentigo 02/13/2014 04/02/2017 Melanocytic nevus of trunk 02/13/2014 0 04/02/2017 Hyponatremia 09/28/2012 10/03/2014 Actinic Keratosis: Premalignant AK 11/18/2011 10/03/2014 Skin tag 11/18/2011 09/25/2012 Intradermal nevus 11/18/2011 09/25/2012 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05/2013 Actinic skin damage 11/18/2011 09/26/19 13 Solar lentigo 11/18/2011 09/25/2012 Depression 06/09/2011 09/25/2012 Insomnia 11/24/2009 09/25/2012 HYPERGLYCEMIA 10/16/2008 09/25/2012 Abdominal pain, right upper quadrant 05/15/2008 03/24/2010 Flatulence, eructation, and gas pain 05/15/2008 10/16/2008 Special screening for malign ant neoplasms, colon 05/15/2008 10/16/2008 Acute, but ill-defined, cere brovascular disease 12/29/2006 09/20/2011 Headache(784.0) 12/29/2006 03/24/2010 Personal history of colonic polyps 08/15/2006 04/04/2018 Overview: Colonoscopy - 15 May 2008 per [facility] 08/15/2006 03/10/2022 Cough 06/07/2006 10/08/2010 Chest pain, unspecified 09/16 Overview: [facility] adm 03/17-03/18/10- Nuclear stress test no ischemia or ST changes, EF 70%. F/u with cardiology CABG 2003 @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 Active CP in office 04/2010- to [facility] ED for eval- abn EKG, t-wave inversion documented as of this encounter (statuses as of 05/10/2023) [facility] History of Past illness Narrative* Problem Noted Date Diagnosed Date Resolved Date Transient cerebral ischemia 12/09/2017 04/04/2018 Orthostatic dizziness 04/02/20172017 Irritated//Inflamed Seborrheic Keratosis 02/13/2014 10/03/2014 Pigmented Lentiginous Neopla sm Uncertain Behavior(NUB): R/O Lentigo Maligna at right hinduism//cheek face 02/13/2014 04/02/2017 Solar lentigo 02/13/2014 04/02/2017 Melanocytic nevus of trunk 02/13/2014 0 04/02/2017 Hyponatremia 09/28/2012 10/03/2014 Actinic Keratosis: Premalignant AK 11/18/2011 10/03/2014 Skin tag 11/18/2011 09/25/2012 Intradermal nevus 11/18/2011 09/25/2012 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05/2013 Actinic skin damage 11/18/2011 09/26/19 13 Solar lentigo 11/18/2011 09/25/2012 Depression 06/09/2011 09/25/2012 Insomnia 11/24/2009 09/25/2012 HYPERGLYCEMIA 10/16/2008 09/25/2012 Abdominal pain, right upper quadrant 05/15/2008 03/24/2010 Flatulence, eructation, and gas pain 05/15/2008 10/16/2008 Special screening for malign ant neoplasms, colon 05/15/2008 10/16/2008 Acute, but ill-defined, cere brovascular disease 12/29/2006 09/20/2011 Headache(784.0) 12/29/2006 03/24/2010 Personal history of colonic polyps 08/15/2006 04/04/2018 Overview: Colonoscopy - 15 May 2008 per [facility] 08/15/2006 03/10/2022 Cough 06/07/2006 10/08/2010 Chest pain, unspecified 09/16 Overview: [facility] adm 03/17-03/18/10- Nuclear stress test no ischemia or ST changes, EF 70%. F/u with cardiology CABG 2003 @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 Active CP in office 04/2010- to [facility] ED for eval- abn EKG, t-wave inversion documented as of this encounter (statuses as of 05/11/2023) [facility] History of Past illness Narrative* Problem Noted Date Diagnosed Date Resolved Date Transient cerebral ischemia 12/09/2017 04/04/2018 Orthostatic dizziness 04/02/20172017 Irritated//Inflamed Seborrheic Keratosis 02/13/2014 10/03/2014 Pigmented Lentiginous Neopla sm Uncertain Behavior(NUB): R/O Lentigo Maligna at right hinduism//cheek face 02/13/2014 04/02/2017 Solar lentigo 02/13/2014 04/02/2017 Melanocytic nevus of trunk 02/13/2014 0 04/02/2017 Hyponatremia 09/28/2012 10/03/2014 Actinic Keratosis: Premalignant AK 11/18/2011 10/03/2014 Skin tag 11/18/2011 09/25/2012 Intradermal nevus 11/18/2011 09/25/2012 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05/2013 Actinic skin damage 11/18/2011 09/26/19 13 Solar lentigo 11/18/2011 09/25/2012 Depression 06/09/2011 09/25/2012 Insomnia 11/24/2009 09/25/2012 HYPERGLYCEMIA 10/16/2008 09/25/2012 Abdominal pain, right upper quadrant 05/15/2008 03/24/2010 Flatulence, eructation, and gas pain 05/15/2008 10/16/2008 Special screening for malign ant neoplasms, colon 05/15/2008 10/16/2008 Acute, but ill-defined, cere brovascular disease 12/29/2006 09/20/2011 Headache(784.0) 12/29/2006 03/24/2010 Personal history of colonic polyps 08/15/2006 04/04/2018 Overview: Colonoscopy - 15 May 2008 per [facility] 08/15/2006 03/10/2022 Cough 06/07/2006 10/08/2010 Chest pain, unspecified 09/16 Overview: [facility] adm 03/17-03/18/10- Nuclear stress test no ischemia or ST changes, EF 70%. F/u with cardiology CABG 2003 @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 Active CP in office 04/2010- to [facility] ED for eval- abn EKG, t-wave inversion documented as of this encounter (statuses as of 05/17/2023) [facility] History of Past illness Narrative* Problem Noted Date Diagnosed Date Resolved Date Transient cerebral ischemia 12/09/2017 04/04/2018 Orthostatic dizziness 04/02/20172017 Irritated//Inflamed Seborrheic Keratosis 02/13/2014 10/03/2014 Pigmented Lentiginous Neopla sm Uncertain Behavior(NUB): R/O Lentigo Maligna at right hinduism//cheek face 02/13/2014 04/02/2017 Solar lentigo 02/13/2014 04/02/2017 Melanocytic nevus of trunk 02/13/2014 0 04/02/2017 Hyponatremia 09/28/2012 10/03/2014 Actinic Keratosis: Premalignant AK 11/18/2011 10/03/2014 Skin tag 11/18/2011 09/25/2012 Intradermal nevus 11/18/2011 09/25/2012 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05/2013 Actinic skin damage 11/18/2011 09/26/19 13 Solar lentigo 11/18/2011 09/25/2012 Depression 06/09/2011 09/25/2012 Insomnia 11/24/2009 09/25/2012 HYPERGLYCEMIA 10/16/2008 09/25/2012 Abdominal pain, right upper quadrant 05/15/2008 03/24/2010 Flatulence, eructation, and gas pain 05/15/2008 10/16/2008 Special screening for malign ant neoplasms, colon 05/15/2008 10/16/2008 Acute, but ill-defined, cere brovascular disease 12/29/2006 09/20/2011 Headache(784.0) 12/29/2006 03/24/2010 Personal history of colonic polyps 08/15/2006 04/04/2018 Overview: Colonoscopy - 15 May 2008 per [facility] 08/15/2006 03/10/2022 Cough 06/07/2006 10/08/2010 Chest pain, unspecified 09/16 Overview: [facility] adm 03/17-03/18/10- Nuclear stress test no ischemia or ST changes, EF 70%. F/u with cardiology CABG 2003 @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 Active CP in office 04/2010- to [facility] ED for eval- abn EKG, t-wave inversion documented as of this encounter (statuses as of 05/22/2023) [facility] History of Past illness Narrative* Problem Noted Date Diagnosed Date Resolved Date Transient cerebral ischemia 12/09/2017 04/04/2018 Orthostatic dizziness 04/02/20172017 Irritated//Inflamed Seborrheic Keratosis 02/13/2014 10/03/2014 Pigmented Lentiginous Neopla sm Uncertain Behavior(NUB): R/O Lentigo Maligna at right hinduism//cheek face 02/13/2014 04/02/2017 Solar lentigo 02/13/2014 04/02/2017 Melanocytic nevus of trunk 02/13/2014 0 04/02/2017 Hyponatremia 09/28/2012 10/03/2014 Actinic Keratosis: Premalignant AK 11/18/2011 10/03/2014 Skin tag 11/18/2011 09/25/2012 Intradermal nevus 11/18/2011 09/25/2012 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05/2013 Actinic skin damage 11/18/2011 09/26/19 13 Solar lentigo 11/18/2011 09/25/2012 Depression 06/09/2011 09/25/2012 Insomnia 11/24/2009 09/25/2012 HYPERGLYCEMIA 10/16/2008 09/25/2012 Abdominal pain, right upper quadrant 05/15/2008 03/24/2010 Flatulence, eructation, and gas pain 05/15/2008 10/16/2008 Special screening for malign ant neoplasms, colon 05/15/2008 10/16/2008 Acute, but ill-defined, cere brovascular disease 12/29/2006 09/20/2011 Headache(784.0) 12/29/2006 03/24/2010 Personal history of colonic polyps 08/15/2006 04/04/2018 Overview: Colonoscopy - 15 May 2008 per [facility] 08/15/2006 03/10/2022 Cough 06/07/2006 10/08/2010 Chest pain, unspecified 09/16 Overview: [facility] adm 03/17-03/18/10- Nuclear stress test no ischemia or ST changes, EF 70%. F/u with cardiology CABG 2003 @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 Active CP in office 04/2010- to [facility] ED for eval- abn EKG, t-wave inversion documented as of this encounter (statuses as of 05/22/2023) [facility] History of Past illness Narrative* Problem Noted Date Diagnosed Date Resolved Date Transient cerebral ischemia 12/09/2017 04/04/2018 Orthostatic dizziness 04/02/20172017 Thrombocytopenia 09/26/2014 05/25/2023 Irritated//Inflamed Seborrheic Keratosis 02/13/2014 10/03/2014 Pigmented Lentiginous Neopla sm Uncertain Behavior(NUB): R/O Lentigo Maligna at right hinduism//cheek face 02/13/2014 04/02/2017 Solar lentigo 02/13/2014 04/02/2017 Melanocytic nevus of trunk 02/13/2014 0 04/02/2017 Hyponatremia 09/28/2012 10/03/2014 Actinic Keratosis: Premalignant AK 11/18/2011 10/03/2014 Skin tag 11/18/2011 09/25/2012 Intradermal nevus 11/18/2011 09/25/2012 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05/2013 Actinic skin damage 11/18/2011 09/26/19 13 Solar lentigo 11/18/2011 09/25/2012 Depression 06/09/2011 09/25/2012 Insomnia 11/24/2009 09/25/2012 HYPERGLYCEMIA 10/16/2008 09/25/2012 Abdominal pain, right upper quadrant 05/15/2008 03/24/2010 Flatulence, eructation, and gas pain 05/15/2008 10/16/2008 Special screening for malign ant neoplasms, colon 05/15/2008 10/16/2008 Acute, but ill-defined, cere brovascular disease 12/29/2006 09/20/2011 Headache(784.0) 12/29/2006 03/24/2010 Personal history of colonic polyps 08/15/2006 04/04/2018 Overview: Colonoscopy - 15 May 2008 per [facility] 08/15/2006 03/10/2022 Cough 06/07/2006 10/08/2010 Chest pain, unspecified 09/16 Overview: [facility] adm 03/17-03/18/10- Nuclear stress test no ischemia or ST changes, EF 70%. F/u with cardiology CABG 2003 @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 Active CP in office 04/2010- to [facility] ED for eval- abn EKG, t-wave inversion documented as of this encounter (statuses as of 05/26/2023) [facility] History of Past illness Narrative* Problem Noted Date Diagnosed Date Resolved Date Transient cerebral ischemia 12/09/2017 04/04/2018 Orthostatic dizziness 04/02/20172017 Thrombocytopenia 09/26/2014 05/25/2023 Irritated//Inflamed Seborrheic Keratosis 02/13/2014 10/03/2014 Pigmented Lentiginous Neopla sm Uncertain Behavior(NUB): R/O Lentigo Maligna at right hinduism//cheek face 02/13/2014 04/02/2017 Solar lentigo 02/13/2014 04/02/2017 Melanocytic nevus of trunk 02/13/2014 0 04/02/2017 Hyponatremia 09/28/2012 10/03/2014 Actinic Keratosis: Premalignant AK 11/18/2011 10/03/2014 Skin tag 11/18/2011 09/25/2012 Intradermal nevus 11/18/2011 09/25/2012 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05/2013 Actinic skin damage 11/18/2011 09/26/19 13 Solar lentigo 11/18/2011 09/25/2012 Depression 06/09/2011 09/25/2012 Insomnia 11/24/2009 09/25/2012 HYPERGLYCEMIA 10/16/2008 09/25/2012 Abdominal pain, right upper quadrant 05/15/2008 03/24/2010 Flatulence, eructation, and gas pain 05/15/2008 10/16/2008 Special screening for malign ant neoplasms, colon 05/15/2008 10/16/2008 Acute, but ill-defined, cere brovascular disease 12/29/2006 09/20/2011 Headache(784.0) 12/29/2006 03/24/2010 Personal history of colonic polyps 08/15/2006 04/04/2018 Overview: Colonoscopy - 15 May 2008 per [facility] 08/15/2006 03/10/2022 Cough 06/07/2006 10/08/2010 Chest pain, unspecified 09/16 Overview: [facility] adm 03/17-03/18/10- Nuclear stress test no ischemia or ST changes, EF 70%. F/u with cardiology CABG 2003 @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 Active CP in office 04/2010- to [facility] ED for eval- abn EKG, t-wave inversion documented as of this encounter (statuses as of 06/01/2023) [facility] History of Past illness Narrative* Problem Noted Date Diagnosed Date Resolved Date Transient cerebral ischemia 12/09/2017 04/04/2018 Orthostatic dizziness 04/02/20172017 Thrombocytopenia 09/26/2014 05/25/2023 Irritated//Inflamed Seborrheic Keratosis 02/13/2014 10/03/2014 Pigmented Lentiginous Neopla sm Uncertain Behavior(NUB): R/O Lentigo Maligna at right hinduism//cheek face 02/13/2014 04/02/2017 Solar lentigo 02/13/2014 04/02/2017 Melanocytic nevus of trunk 02/13/2014 0 04/02/2017 Hyponatremia 09/28/2012 10/03/2014 Actinic Keratosis: Premalignant AK 11/18/2011 10/03/2014 Skin tag 11/18/2011 09/25/2012 Intradermal nevus 11/18/2011 09/25/2012 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05/2013 Actinic skin damage 11/18/2011 09/26/19 13 Solar lentigo 11/18/2011 09/25/2012 Depression 06/09/2011 09/25/2012 Insomnia 11/24/2009 09/25/2012 HYPERGLYCEMIA 10/16/2008 09/25/2012 Abdominal pain, right upper quadrant 05/15/2008 03/24/2010 Flatulence, eructation, and gas pain 05/15/2008 10/16/2008 Special screening for malign ant neoplasms, colon 05/15/2008 10/16/2008 Acute, but ill-defined, cere brovascular disease 12/29/2006 09/20/2011 Headache(784.0) 12/29/2006 03/24/2010 Personal history of colonic polyps 08/15/2006 04/04/2018 Overview: Colonoscopy - 15 May 2008 per [facility] 08/15/2006 03/10/2022 Cough 06/07/2006 10/08/2010 Chest pain, unspecified 09/16 Overview: [facility] adm 03/17-03/18/10- Nuclear stress test no ischemia or ST changes, EF 70%. F/u with cardiology CABG 2003 @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 Active CP in office 04/2010- to [facility] ED for eval- abn EKG, t-wave inversion documented as of this encounter (statuses as of 06/01/2023) [facility] History of Past illness Narrative* Problem Noted Date Diagnosed Date Resolved Date Transient cerebral ischemia 12/09/2017 04/04/2018 Orthostatic dizziness 04/02/20172017 Thrombocytopenia 09/26/2014 05/25/2023 Irritated//Inflamed Seborrheic Keratosis 02/13/2014 10/03/2014 Pigmented Lentiginous Neopla sm Uncertain Behavior(NUB): R/O Lentigo Maligna at right hinduism//cheek face 02/13/2014 04/02/2017 Solar lentigo 02/13/2014 04/02/2017 Melanocytic nevus of trunk 02/13/2014 0 04/02/2017 Hyponatremia 09/28/2012 10/03/2014 Actinic Keratosis: Premalignant AK 11/18/2011 10/03/2014 Skin tag 11/18/2011 09/25/2012 Intradermal nevus 11/18/2011 09/25/2012 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05/2013 Actinic skin damage 11/18/2011 09/26/19 13 Solar lentigo 11/18/2011 09/25/2012 Depression 06/09/2011 09/25/2012 Insomnia 11/24/2009 09/25/2012 HYPERGLYCEMIA 10/16/2008 09/25/2012 Abdominal pain, right upper quadrant 05/15/2008 03/24/2010 Flatulence, eructation, and gas pain 05/15/2008 10/16/2008 Special screening for malign ant neoplasms, colon 05/15/2008 10/16/2008 Acute, but ill-defined, cere brovascular disease 12/29/2006 09/20/2011 Headache(784.0) 12/29/2006 03/24/2010 Personal history of colonic polyps 08/15/2006 04/04/2018 Overview: Colonoscopy - 15 May 2008 per [facility] OVERWEIGHT 08/15/2006 03/10/2022 Cough 06/07/2006 10/08/2010 Chest pain, unspecified 09/16 Overview: [facility] adm 03/17-03/18/10- Nuclear stress test no ischemia or ST changes, EF 70%. F/u with cardiology CABG 2003 @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 Active CP in office 04/2010- to [facility] ED for eval- abn EKG, t-wave inversion documented as of this encounter (statuses as of 06/07/2023) [facility] History of Past illness Narrative* Problem Noted Date Diagnosed Date Resolved Date Transient cerebral ischemia 12/09/2017 04/04/2018 Orthostatic dizziness 04/02/20172017 Thrombocytopenia 09/26/2014 05/25/2023 Irritated//Inflamed Seborrheic Keratosis 02/13/2014 10/03/2014 Pigmented Lentiginous Neopla sm Uncertain Behavior(NUB): R/O Lentigo Maligna at right hinduism//cheek face 02/13/2014 04/02/2017 Solar lentigo 02/13/2014 04/02/2017 Melanocytic nevus of trunk 02/13/2014 0 04/02/2017 Hyponatremia 09/28/2012 10/03/2014 Actinic Keratosis: Premalignant AK 11/18/2011 10/03/2014 Skin tag 11/18/2011 09/25/2012 Intradermal nevus 11/18/2011 09/25/2012 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05/2013 Actinic skin damage 11/18/2011 09/26/19 13 Solar lentigo 11/18/2011 09/25/2012 Depression 06/09/2011 09/25/2012 Insomnia 11/24/2009 09/25/2012 HYPERGLYCEMIA 10/16/2008 09/25/2012 Abdominal pain, right upper quadrant 05/15/2008 03/24/2010 Flatulence, eructation, and gas pain 05/15/2008 10/16/2008 Special screening for malign ant neoplasms, colon 05/15/2008 10/16/2008 Acute, but ill-defined, cere brovascular disease 12/29/2006 09/20/2011 Headache(784.0) 12/29/2006 03/24/2010 Personal history of colonic polyps 08/15/2006 04/04/2018 Overview: Colonoscopy - 15 May 2008 per [facility] OVERWEIGHT 08/15/2006 03/10/2022 Cough 06/07/2006 10/08/2010 Chest pain, unspecified 09/16 Overview: [facility] adm 03/17-03/18/10- Nuclear stress test no ischemia or ST changes, EF 70%. F/u with cardiology CABG 2003 @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 Active CP in office 04/2010- to [facility] ED for eval- abn EKG, t-wave inversion documented as of this encounter (statuses as of 06/16/2023) [facility] Past illness Narrative* Problem Noted Date Diagnosed Date Resolved Date Transient cerebral ischemia 12/09/2017 04/04/2018 Orthostatic dizziness 04/02/20172017 Thrombocytopenia 09/26/2014 05/25/2023 Irritated//Inflamed Seborrheic Keratosis 02/13/2014 10/03/2014 Pigmented Lentiginous Neopla sm Uncertain Behavior(NUB): R/O Lentigo Maligna at right hinduism//cheek face 02/13/2014 04/02/2017 Solar lentigo 02/13/2014 04/02/2017 Melanocytic nevus of trunk 02/13/2014 0 04/02/2017 Hyponatremia 09/28/2012 10/03/2014 Actinic Keratosis: Premalignant AK 11/18/2011 10/03/2014 Skin tag 11/18/2011 09/25/2012 Intradermal nevus 11/18/2011 09/25/2012 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05/2013 Actinic skin damage 11/18/2011 09/26/19 13 Solar lentigo 11/18/2011 09/25/2012 Depression 06/09/2011 09/25/2012 Insomnia 11/24/2009 09/25/2012 HYPERGLYCEMIA 10/16/2008 09/25/2012 Abdominal pain, right upper quadrant 05/15/2008 03/24/2010 Flatulence, eructation, and gas pain 05/15/2008 10/16/2008 Special screening for malign ant neoplasms, colon 05/15/2008 10/16/2008 Acute, but ill-defined, cere brovascular disease 12/29/2006 09/20/2011 Headache(784.0) 12/29/2006 03/24/2010 Personal history of colonic polyps 08/15/2006 04/04/2018 Overview: Colonoscopy - 15 May 2008 per [facility] OVERWEIGHT 08/15/2006 03/10/2022 Cough 06/07/2006 10/08/2010 Chest pain, unspecified 09/16 Overview: [facility] adm 03/17-03/18/10- Nuclear stress test no ischemia or ST changes, EF 70%. F/u with cardiology CABG 2003 @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 Active CP in office 04/2010- to [facility] ED for eval- abn EKG, t-wave inversion documented as of this encounter (statuses as of 06/21/2023) [facility]/lower urinary tract symptoms Hypertrophy of prostate with urinary obstruction and other lower urinary tract symptoms (LUTS) documented in this encounter [facility] [facility]Evaluation [facility]* Diagnosis Pain in right foot- Primary Pain in limb Weakness Other malaise and fatigue Plantar fascial fibromatosis Difficulty walking Difficulty in walking [facility] Pain in right foot- Primary Pain in limb Weakness Other malaise and fatigue Plantar fascial fibromatosis Difficulty walking Difficulty in walking [facility] Diagnosis Pain in right foot- Primary Pain in limb Plantar fascial fibromatosis [facility] Diagnosis SOB (shortness of breath)- Primary Shortness of breath Acute cough [facility]* Diagnosis Gastrointestinal hemorrhage, unspecified gastrointestinal hemorrhage type- Primary [facility]* Diagnosis Acute upper GI bleed- Primary Hemorrhage of gastrointestinal tract, unspecified 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) Adenomatous polyp of transverse colon Atrial fibrillation, unspecified type (HCC) Generalized weakness Other malaise and fatigue [facility]* Diagnosis COPD with chronic bronchitis (HCC)- Primary Obstructive chronic bronchitis without exacerbation Chronic rhinitis Chronic bilateral pleural effusions COPD (chronic obstructive pulmonary disease) with chronic bronchitis (HCC) Obstructive chronic bronchitis without exacerbation Gastroesophageal reflux disease, unspecified whether esophagitis present Edema of both legs Edema Atrial fibrillation, unspecified type (HCC) [facility]* Diagnosis COPD with chronic bronchitis (HCC) Obstructive chronic bronchitis without exacerbation [facility]* Diagnosis Mixed hyperlipidemia- Primary Impaired fasting glucose Thrombocytopenia (HCC) Thrombocytopenia, unspecified [facility]* Diagnosis COPD with chronic bronchitis (HCC) Obstructive chronic bronchitis without exacerbation [facility]* Diagnosis Medicare annual wellness visit, subsequent- Primary Routine general medical examination at a health care facility Anemia, unspecified type Encounter for immunization Need for other specified prophylactic vaccination against single bacterial disease [facility]* Diagnosis Acute cystitis without hematuria- Primary Acute cystitis Chronic rhinitis COPD with chronic bronchitis (HCC) Obstructive chronic bronchitis without exacerbation 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 [facility]* Diagnosis COPD with chronic bronchitis Obstructive chronic bronchitis without exacerbation [facility]* Diagnosis COPD with chronic bronchitis Obstructive chronic bronchitis without exacerbation [facility]* Diagnosis Chronic cough- Primary Cough Former smoker Personal history of tobacco use, presenting hazards to health documented [facility] this [facility]* Diagnosis Urinary tract infection without hematuria, site unspecified- Primary Acute confusion Delirium due to conditions classified elsewhere Malaise Other malaise and fatigue Need for influenza vaccination Need for prophylactic vaccination and inoculation against influenza Encounter for immunization Need for other specified prophylactic vaccination against single bacterial disease [facility]* Diagnosis Acute confusion Delirium due to conditions classified elsewhere Malaise Other malaise and fatigue Weakness Other malaise and fatigue documented in this encounter [facility]* Diagnosis Chronic bilateral pleural effusions [facility] this [facility]* Diagnosis Altered mental status, unspecified altered mental status type- Primary Anemia, unspecified type Vitamin D deficiency Unspecified vitamin D deficiency TIA (transient ischemic attack) Unspecified transient cerebral ischemia Atherosclerosis of coronary artery of [place] heart with angina pectoris, unspecified vessel or lesion type (HCC) Atrial fibrillation, unspecified type (HCC) COPD (chronic obstructive pulmonary disease) with chronic bronchitis Obstructive chronic bronchitis without exacerbation BPH with obstruction/lower urinary tract symptoms Hypertrophy of prostate with urinary obstruction and other lower urinary tract symptoms (LUTS) Essential hypertension Unspecified essential hypertension [facility]* Diagnosis Claustrophobia- Primary Other isolated or specific phobias [facility] Diagnosis Altered mental status, unspecified altered mental status type TIA (transient ischemic attack) Unspecified transient cerebral ischemia [facility]* Diagnosis Excessive somnolence disorder- Primary Hypersomnia, unspecified Altered mental status, unspecified altered mental status type Dysthymia Dysthymic disorder Anemia, unspecified type BPH with obstruction/lower urinary tract symptoms Hypertrophy of prostate with urinary obstruction and other lower urinary tract symptoms (LUTS) [facility]* Diagnosis Dysthymia Dysthymic disorder documented in this encounter [facility] for referral (narrative)* Outpatient Procedure (Routine) - Authorized Specialty Diagnoses / Procedures Referred By Contyoel t Referred To [facility] Diagnoses SOB (shortness of breath) Procedures ECG COMPLETE ECG ROUTINE ECG W/LEAST 12 LDS W/I&R Rin Dixon PA-C [address] [place] [address] [facility] [address] [place] [address] Referral ID Status Reason Start Date Expiration Date Visits Requested Visits Authorized [id number] Authorized Auto-Generat ed Referral 05/24/2022 05/24/2023 1 1 [facility] Outpatient Procedure (Routine) - Authorized Specialty Diagnoses / Procedures Referred By Contac t Referred To Contact [facility] Diagnoses COPD with chronic bronchitis (HCC) Procedures LUNG DIFFUSION CAPACITY (DLCO) DIFFUSING CAPACITY Soha Akhtar APRN.SAND ANALYST [address] [place] [address] [facility] [address] [place] [id number] Referral ID Status Reason Start Date Expiration Date Visits Requested Visits Authorized [id number] Authorized Auto-Generat ed Referral 10/15/2022 11/14/2023 1 1 * Outpatient Procedure (Routine) - Authorized Specialty Diagnoses / Procedures Referred By Contac t Referred To Contact [facility] Diagnoses COPD with chronic bronchitis (HCC) Procedures SPIROMETRY BASELINE ONLY SPMTRY W/VC EXPIRATORY JOSÉ LUIS W/WO MXML VOL VNTJ Soha Akhtar APRN.DEON [address] [place] [address] [address] Referral ID Status Reason Start Date Expiration Date Visits Requested Visits Authorized [id number] Authorized Auto-Generat ed Referral 10/15/2022 11/14/2023 1 1 [facility] Summary Purpose Family History No Family History Records FoundNo Family History Records FoundNo Family History Records Found Advance Directives No Advanced Directives Records FoundDocuments on File Type Date 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 Advance Directive(s) 05/25/2018 3:46 PM Reason for Referral Specialty Diagnoses / Procedures Referred By Contac t Referred To Contact CT IMAGING Diagnoses Acute confusion Malaise Weakness Procedures CT BRAIN WO IVCON CT HEAD/BRAIN W/O CONTRAST MATERIAL Sun Gan WATER OPERATOR.SAND ANALYST [address] [place] [address] [place] [address] Referral ID Status Reason Start Date Expiration Date V isits Requested Visits Authorized [id number] Closed Auto-Generate d Referral 05/09/2023 06/07/2024 1 1 Specialty Diagnoses / Procedures Referred By Swetha luna Referred To Contact [facility] IMAGING Diagnoses Altered mental status, unspecified altered mental status type TIA (transient ischemic attack) Procedures MRI BRAIN WO IVCON MRI BRAIN BRAIN STEM W/O CONTRAST MATERIAL Malik, Sun, WATER OPERATOR.SAND ANALYST [address] [place] [address] [place] [address] Referral ID Status Reason Start Date Expiration Date Visits Requested Visits Authorized [id number] Authorized Auto-Generat ed Referral 05/25/2023 06/23/2024 1 1 Additional Source Comments (unrecognized sect ion and content) No Status Records FoundNo Status Records FoundNo Status Records Found INFORMATION SOURCE (unrecogn ized section and content) DATE CREATED AUTHOR AUTHOR'S ORGANIZ ATION 06/18/2023 [facility] DATE CREATED AUTHOR AUTHOR'S ORGANIZ ATION 09/22/2023 [facility] Source Comments (unrecognize d section and content) In the event this informatio n is protected by the Federal Confidentiality of Alcohol and Drug Abuse Patient Records regulations: The Federal rules restrict any use of the information to criminally investigate or prosecute any alcohol or drug abuse patient.[facility] the event this information is protected by the Federal Confidentiality of Alcohol and Drug Abuse Patient Records regulations: The Federal rules restrict any use of the information to criminally investigate or prosecute any alcohol or drug abuse patient.[facility] CenterIn the event this information is protected by the Federal Confidentiality of Alcohol and Drug Abuse Patient Records regulations: The Federal rules restrict any use of the information to criminally investigate or prosecute any alcohol or drug abuse patient.[facility] CenterIn the event this information is protected by the Federal Confidentiality of Alcohol and Drug Abuse Patient Records regulations: The Federal rules restrict any use of the information to criminally investigate or prosecute any alcohol or drug abuse patient.[facility] CenterIn the event this information is protected by the Federal Confidentiality of Alcohol and Drug Abuse Patient Records regulations: The Federal rules restrict any use of the information to criminally investigate or prosecute any alcohol or drug abuse patient.[facility] CenterIn the event this information is protected by the Federal Confidentiality of Alcohol and Drug Abuse Patient Records regulations: The Federal rules restrict any use of the information to criminally investigate or prosecute any alcohol or drug abuse patient.[facility] CenterIn the event this information is protected by the Federal Confidentiality of Alcohol and Drug Abuse Patient Records regulations: The Federal rules restrict any use of the information to criminally investigate or prosecute any alcohol or drug abuse patient.[facility] CenterIn the event this information is protected by the Federal Confidentiality of Alcohol and Drug Abuse Patient Records regulations: The Federal rules restrict any use of the information to criminally investigate or prosecute any alcohol or drug abuse patient.[facility] CenterIn the event this information is protected by the Federal Confidentiality of Alcohol and Drug Abuse Patient Records regulations: The Federal rules restrict any use of the information to criminally investigate or prosecute any alcohol or drug abuse patient.[facility] CenterIn the event this information is protected by the Federal Confidentiality of Alcohol and Drug Abuse Patient Records regulations: The Federal rules restrict any use of the information to criminally investigate or prosecute any alcohol or drug abuse patient.[facility] CenterIn the event this information is protected by the Federal Confidentiality of Alcohol and Drug Abuse Patient Records regulations: The Federal rules restrict any use of the information to criminally investigate or prosecute any alcohol or drug abuse patient.[facility] CenterIn the event this information is protected by the Federal Confidentiality of Alcohol and Drug Abuse Patient Records regulations: The Federal rules restrict any use of the information to criminally investigate or prosecute any alcohol or drug abuse patient.[facility] CenterIn the event this information is protected by the Federal Confidentiality of Alcohol and Drug Abuse Patient Records regulations: The Federal rules restrict any use of the information to criminally investigate or prosecute any alcohol or drug abuse patient.[facility] CenterIn the event this information is protected by the Federal Confidentiality of Alcohol and Drug Abuse Patient Records regulations: The Federal rules restrict any use of the information to criminally investigate or prosecute any alcohol or drug abuse patient.[facility] CenterIn the event this information is protected by the Federal Confidentiality of Alcohol and Drug Abuse Patient Records regulations: The Federal rules restrict any use of the information to criminally investigate or prosecute any alcohol or drug abuse patient.[facility] CenterIn the event this information is protected by the Federal Confidentiality of Alcohol and Drug Abuse Patient Records regulations: The Federal rules restrict any use of the information to criminally investigate or prosecute any alcohol or drug abuse patient.[facility] CenterIn the event this information is protected by the Federal Confidentiality of Alcohol and Drug Abuse Patient Records regulations: The Federal rules restrict any use of the information to criminally investigate or prosecute any alcohol or drug abuse patient.[facility] CenterIn the event this information is protected by the Federal Confidentiality of Alcohol and Drug Abuse Patient Records regulations: The Federal rules restrict any use of the information to criminally investigate or prosecute any alcohol or drug abuse patient.[facility] CenterIn the event this information is protected by the Federal Confidentiality of Alcohol and Drug Abuse Patient Records regulations: The Federal rules restrict any use of the information to criminally investigate or prosecute any alcohol or drug abuse patient.[facility] CenterIn the event this information is protected by the Federal Confidentiality of Alcohol and Drug Abuse Patient Records regulations: The Federal rules restrict any use of the information to criminally investigate or prosecute any alcohol or drug abuse patient.[facility] CenterIn the event this information is protected by the Federal Confidentiality of Alcohol and Drug Abuse Patient Records regulations: The Federal rules restrict any use of the information to criminally investigate or prosecute any alcohol or drug abuse patient.[facility] CenterIn the event this information is protected by the Federal Confidentiality of Alcohol and Drug Abuse Patient Records regulations: The Federal rules restrict any use of the information to criminally investigate or prosecute any alcohol or drug abuse patient.[facility] CenterIn the event this information is protected by the Federal Confidentiality of Alcohol and Drug Abuse Patient Records regulations: The Federal rules restrict any use of the information to criminally investigate or prosecute any alcohol or drug abuse patient.[facility] CenterIn the event this information is protected by the Federal Confidentiality of Alcohol and Drug Abuse Patient Records regulations: The Federal rules restrict any use of the information to criminally investigate or prosecute any alcohol or drug abuse patient.[facility] CenterIn the event this information is protected by the Federal Confidentiality of Alcohol and Drug Abuse Patient Records regulations: The Federal rules restrict any use of the information to criminally investigate or prosecute any alcohol or drug abuse patient.[facility] CenterIn the event this information is protected by the Federal Confidentiality of Alcohol and Drug Abuse Patient Records regulations: The Federal rules restrict any use of the information to criminally investigate or prosecute any alcohol or drug abuse patient.[facility] CenterIn the event this information is protected by the Federal Confidentiality of Alcohol and Drug Abuse Patient Records regulations: The Federal rules restrict any use of the information to criminally investigate or prosecute any alcohol or drug abuse patient.[facility] CenterIn the event this information is protected by the Federal Confidentiality of Alcohol and Drug Abuse Patient Records regulations: The Federal rules restrict any use of the information to criminally investigate or prosecute any alcohol or drug abuse patient.[facility] CenterIn the event this information is protected by the Federal Confidentiality of Alcohol and Drug Abuse Patient Records regulations: The Federal rules restrict any use of the information to criminally investigate or prosecute any alcohol or drug abuse patient.[facility] CenterIn the event this information is protected by the Federal Confidentiality of Alcohol and Drug Abuse Patient Records regulations: The Federal rules restrict any use of the information to criminally investigate or prosecute any alcohol or drug abuse patient.[facility] CenterIn the event this information is protected by the Federal Confidentiality of Alcohol and Drug Abuse Patient Records regulations: The Federal rules restrict any use of the information to criminally investigate or prosecute any alcohol or drug abuse patient.[facility] CenterIn the event this information is protected by the Federal Confidentiality of Alcohol and Drug Abuse Patient Records regulations: The Federal rules restrict any use of the information to criminally investigate or prosecute any alcohol or drug abuse patient.[facility] CenterIn the event this information is protected by the Federal Confidentiality of Alcohol and Drug Abuse Patient Records regulations: The Federal rules restrict any use of the information to criminally investigate or prosecute any alcohol or drug abuse patient.[facility] CenterIn the event this information is protected by the Federal Confidentiality of Alcohol and Drug Abuse Patient Records regulations: The Federal rules restrict any use of the information to criminally investigate or prosecute any alcohol or drug abuse patient.[facility] CenterIn the event this information is protected by the Federal Confidentiality of Alcohol and Drug Abuse Patient Records regulations: The Federal rules restrict any use of the information to criminally investigate or prosecute any alcohol or drug abuse patient.[facility] CenterIn the event this information is protected by the Federal Confidentiality of Alcohol and Drug Abuse Patient Records regulations: The Federal rules restrict any use of the information to criminally investigate or prosecute any alcohol or drug abuse patient.[facility] CenterIn the event this information is protected by the Federal Confidentiality of Alcohol and Drug Abuse Patient Records regulations: The Federal rules restrict any use of the information to criminally investigate or prosecute any alcohol or drug abuse patient.[facility] CenterIn the event this information is protected by the Federal Confidentiality of Alcohol and Drug Abuse Patient Records regulations: The Federal rules restrict any use of the information to criminally investigate or prosecute any alcohol or drug abuse patient.[facility] CenterIn the event this information is protected by the Federal Confidentiality of Alcohol and Drug Abuse Patient Records regulations: The Federal rules restrict any use of the information to criminally investigate or prosecute any alcohol or drug abuse patient.[facility] CenterIn the event this information is protected by the Federal Confidentiality of Alcohol and Drug Abuse Patient Records regulations: The Federal rules restrict any use of the information to criminally investigate or prosecute any alcohol or drug abuse patient.[facility] CenterIn the event this information is protected by the Federal Confidentiality of Alcohol and Drug Abuse Patient Records regulations: The Federal rules restrict any use of the information to criminally investigate or prosecute any alcohol or drug abuse patient.[facility] CenterIn the event this information is protected by the Federal Confidentiality of Alcohol and Drug Abuse Patient Records regulations: The Federal rules restrict any use of the information to criminally investigate or prosecute any alcohol or drug abuse patient.[facility] CenterIn the event this information is protected by the Federal Confidentiality of Alcohol and Drug Abuse Patient Records regulations: The Federal rules restrict any use of the information to criminally investigate or prosecute any alcohol or drug abuse patient.[facility] CenterIn the event this information is protected by the Federal Confidentiality of Alcohol and Drug Abuse Patient Records regulations: The Federal rules restrict any use of the information to criminally investigate or prosecute any alcohol or drug abuse patient.[facility]In the event this information is protected by the Federal Confidentiality of Alcohol and Drug Abuse Patient Records regulations: The Federal rules restrict any use of the information to criminally investigate or prosecute any alcohol or drug abuse patient.[facility] CenterIn the event this information is protected by the Federal Confidentiality of Alcohol and Drug Abuse Patient Records regulations: The Federal rules restrict any use of the information to criminally investigate or prosecute any alcohol or drug abuse patient.[facility] CenterIn the event this information is protected by the Federal Confidentiality of Alcohol and Drug Abuse Patient Records regulations: The Federal rules restrict any use of the information to criminally investigate or prosecute any alcohol or drug abuse patient.[facility] CenterIn the event this information is protected by the Federal Confidentiality of Alcohol and Drug Abuse Patient Records regulations: The Federal rules restrict any use of the information to criminally investigate or prosecute any alcohol or drug abuse patient.[facility] CenterIn the event this information is protected by the Federal Confidentiality of Alcohol and Drug Abuse Patient Records regulations: The Federal rules restrict any use of the information to criminally investigate or prosecute any alcohol or drug abuse patient.[facility] CenterIn the event this information is protected by the Federal Confidentiality of Alcohol and Drug Abuse Patient Records regulations: The Federal rules restrict any use of the information to criminally investigate or prosecute any alcohol or drug abuse patient.[facility] CenterIn the event this information is protected by the Federal Confidentiality of Alcohol and Drug Abuse Patient Records regulations: The Federal rules restrict any use of the information to criminally investigate or prosecute any alcohol or drug abuse patient.[facility] CenterIn the event this information is protected by the Federal Confidentiality of Alcohol and Drug Abuse Patient Records regulations: The Federal rules restrict any use of the information to criminally investigate or prosecute any alcohol or drug abuse patient.[facility] CenterIn the event this information is protected by the Federal Confidentiality of Alcohol and Drug Abuse Patient Records regulations: The Federal rules restrict any use of the information to criminally investigate or prosecute any alcohol or drug abuse patient.[facility] CenterIn the event this information is protected by the Federal Confidentiality of Alcohol and Drug Abuse Patient Records regulations: The Federal rules restrict any use of the information to criminally investigate or prosecute any alcohol or drug abuse patient.[facility] CenterIn the event this information is protected by the Federal Confidentiality of Alcohol and Drug Abuse Patient Records regulations: The Federal rules restrict any use of the information to criminally investigate or prosecute any alcohol or drug abuse patient.[facility] CenterIn the event this information is protected by the Federal Confidentiality of Alcohol and Drug Abuse Patient Records regulations: The Federal rules restrict any use of the information to criminally investigate or prosecute any alcohol or drug abuse patient.[facility] CenterIn the event this information is protected by the Federal Confidentiality of Alcohol and Drug Abuse Patient Records regulations: The Federal rules restrict any use of the information to criminally investigate or prosecute any alcohol or drug abuse patient.[facility] CenterIn the event this information is protected by the Federal Confidentiality of Alcohol and Drug Abuse Patient Records regulations: The Federal rules restrict any use of the information to criminally investigate or prosecute any alcohol or drug abuse patient.[facility] CenterIn the event this information is protected by the Federal Confidentiality of Alcohol and Drug Abuse Patient Records regulations: The Federal rules restrict any use of the information to criminally investigate or prosecute any alcohol or drug abuse patient.[facility] CenterIn the event this information is protected by the Federal Confidentiality of Alcohol and Drug Abuse Patient Records regulations: The Federal rules restrict any use of the information to criminally investigate or prosecute any alcohol or drug abuse patient.[facility] CenterIn the event this information is protected by the Federal Confidentiality of Alcohol and Drug Abuse Patient Records regulations: The Federal rules restrict any use of the information to criminally investigate or prosecute any alcohol or drug abuse patient.[facility] CenterIn the event this information is protected by the Federal Confidentiality of Alcohol and Drug Abuse Patient Records regulations: The Federal rules restrict any use of the information to criminally investigate or prosecute any alcohol or drug abuse patient.[facility] CenterIn the event this information is protected by the Federal Confidentiality of Alcohol and Drug Abuse Patient Records regulations: The Federal rules restrict any use of the information to criminally investigate or prosecute any alcohol or drug abuse patient.[facility] CenterIn the event this information is protected by the Federal Confidentiality of Alcohol and Drug Abuse Patient Records regulations: The Federal rules restrict any use of the information to criminally investigate or prosecute any alcohol or drug abuse patient.[facility] CenterIn the event this information is protected by the Federal Confidentiality of Alcohol and Drug Abuse Patient Records regulations: The Federal rules restrict any use of the information to criminally investigate or prosecute any alcohol or drug abuse patient.[facility] CenterIn the event this information is protected by the Federal Confidentiality of Alcohol and Drug Abuse Patient Records regulations: The Federal rules restrict any use of the information to criminally investigate or prosecute any alcohol or drug abuse patient.[facility] Reason for Visit (unrecogniz ed section and content) Specialty Diagnoses / Procedures Referred By Contac t Referred To Contact Physical Therapy / PHYSICAL THERAPY Diagnoses Plantar Fascial Fibromatosis Procedures NEW RS PT ORTH K Jose Ramon Sam, DO [address] [id number] Nataliia Gutierrez PT Referral ID Status Reason Start Date Expiration Date V isits Requested Visits Authorized [id number] Authorized 04/28/2022 07/17/2022 99 99 Reason Onset Date Comments Community Monitoring Outreach 10/27/2021 [place] [facility] Telephonic Outreach Reason Onset Date Comments Refill Request 10/27/2021 Reason Onset Date Comments Community Monitoring Outreach 11/11/2021 [place] [facility] Telephonic CDM Outreach Reason Comments Refill Request Breo Reason Onset Date Comments Community Monitoring Outreach 11/26/2021 [place] [facility] CDM Outreach Reason Onset Date Comments Community Monitoring Outreach 12/15/2021 [place] Telephonic CDM Outreach Reason Onset Date Comments Community Monitoring Outreach 12/30/2021 [place] [facility] Telephonic CDM Outreach Reason Onset Date Comments Community Monitoring Outreach 01/15/2022 [place] [facility] Telephonic CDM Outreach Reason Onset Date Comments Community Monitoring Outreach 02/04/2022 [place] [facility] Telephonic CDM Outreach Reason Comments Medication Question Reason Onset Date Comments Community Monitoring Outreach 02/19/2022 [place] [facility] Telephonic CDM Outreach Reason Onset Date Comments M[employer] Foam [employer]ber Chronic Care 03/08/2022 Reason Comments PT Eval Reason Onset Date Comments Community Monitoring Outreach 05/03/2022 Reason Onset Date Comments Community Monitoring Outreach 05/21/2022 Reason Comments Chest Congestion cough x last night Reason Onset Date Comments Community Monitoring Outreach 06/22/2022 Reason Comments Refill Request Reason Comments Results Reason Comments Appointment Orders Reason Comments PT plan of care Reason Onset Date Comments Community Monitoring Outreach 07/23/2022 Reason Comments change in PT plan of care Reason Comments Hospital F/U Reason Onset Date Comments Community Monitoring Outreach 08/26/2022 Reason Onset Date Comments Community Monitoring Outreach 09/17/2022 Reason Onset Date Comments Refill Request 10/01/2022 Reason Comments 6 Month Exam COPD Reason Onset Date Comments Community Monitoring Outreach 10/20/2022 Reason Comments Lab Orders Reason Onset Date Comments Community Monitoring Outreach 11/12/2022 Reason Comments Medicare Wellness Exam Reason Onset Date Comments Community Monitoring Outreach 12/29/2022 Reason Comments Urinary Frequency Reason Onset Date Comments Community Monitoring Outreach 03/07/2023 Reason Onset Date Comments Community Monitoring Outreach 04/05/2023 Reason Comments Spirometry Specialty Diagnoses / Procedures Referred By Swetha t Referred To Contact [facility] Diagnoses COPD with chronic bronchitis Procedures LUNG DIFFUSION CAPACITY (DLCO) DIFFUSING CAPACITY Soha Akhtar APRN.SAND ANALYST [address] [place] [address] [facility] [address] [place] [id number] Referral ID Status Reason Start Date Expiration Date V isits Requested Visits Authorized [id number] Closed Auto-Generate d Referral 10/15/2022 11/14/2023 1 1 Specialty Diagnoses / Procedures Referred By Contac t Referred To Contact [facility] Diagnoses COPD with chronic bronchitis Procedures SPIROMETRY BASELINE ONLY SPMTRY W/VC EXPIRATORY JOSÉ LUIS W/WO MXML VOL VNTJ Soha Akhtar, WATER OPERATOR.SAND ANALYST [address] [place] [address] [facility] [place] [address] [place] [id number] Referral ID Status Reason Start Date Expiration Date V isits Requested Visits Authorized [id number] Closed Auto-Generate d Referral 10/15/2022 11/14/2023 1 1 Reason Comments Established Patient 6 month follow up [place] [facility] Reason Onset Date Comments Community Monitoring Outreach 04/29/2023 Reason Comments Opened In Error Reason Onset Date Comments Recheck Immunizations 05/16/2023 Flu vaccination Reason Comments Radiology CT Specialty Diagnoses / Procedures Referred By Contac t Referred To Contact CT IMAGING Diagnoses Acute confusion Malaise Weakness Procedures CT BRAIN WO IVCON CT HEAD/BRAIN W/O CONTRAST MATERIAL Older, Sun, WATER OPERATOR.SAND ANALYST [address] [place] [address] Ct Imaging [id number] Referral ID Status Reason Start Date Expiration Date V isits Requested Visits Authorized [id number] Closed Auto-Generate d Referral 05/09/2023 06/07/2024 1 1 Reason Comments F/U 6 months Reason Comments Results, Lab Results Reason Onset Date Comments Community Monitoring Outreach 05/30/2023 Reason Comments Patient Question Specialty Diagnoses / Procedures Referred By Contac t Referred To Contact MR IMAGING Diagnoses Altered mental status, unspecified altered mental status type TIA (transient ischemic attack) Procedures MRI BRAIN WO IVCON MRI BRAIN BRAIN STEM W/O CONTRAST MATERIAL Older, Sun, WATER OPERATOR.SAND ANALYST [address] [place] [address] [place] [address] Referral ID Status Reason Start Date Expiration Date V isits Requested Visits Authorized [id number] Closed Auto-Generate d Referral 05/25/2023 06/23/2024 1 1 Reason Comments Fatigue Reason Onset Date Comments Community Monitoring Outreach 07/14/2023 Reason Onset Date Comments Community Monitoring Outreach 08/18/2023 Reason Onset Date Comments Refill Request 09/19/2023 Reason Onset Date Comments Community Monitoring Outreach 09/21/2023 Care Teams (unrecognized sec tion and content) Software Support Analyst Relationship Specialty Start Date End Date Jose Wolfe MD [address] [facility] [place] [address] PCP - General Internal Medicine 11/10/10 Tristian Monique, biztalk software developerMolder Foam Rubber Internal Medicine 11/24/20 Software Support Analyst Relationship Specialty Start Date End Date Jose Wolfe MD [address] [facility] [place] [place] [address] PCP - General Internal Medicine 11/10/10 Tristian Monique, biztalk software developerMolder Foam Rubber Internal Medicine 11/24/20 Software Support Analyst Relationship Specialty Start Date End Date Jose Wolfe MD [address] [facility] [place] [place] [address] PCP - General Internal Medicine 11/10/10 Tristian Monique, biztalk software developerMolder Foam Rubber Internal Medicine 11/24/20 Software Support Analyst Relationship Specialty Start Date End Date Jose Wolfe MD [address] [facility] [place] [place] [address] PCP - General Internal Medicine 11/10/10 Tristian Monique, biztalk software developerMolder Foam Rubber Internal Medicine 11/24/20 Software Support Analyst Relationship Specialty Start Date End Date Jose Wolfe MD [address] [facility] [place] [place] [address] PCP - General Internal Medicine 11/10/10 Tristian Monique, biztalk software developerMolder Foam Rubber Internal Medicine 11/24/20 Software Support Analyst Relationship Specialty Start Date End Date Jose Wolfe MD [address] [facility] [place] [address] PCP - General Internal Medicine 11/10/10 Tristian Monique, biztalk software developerMolder Foam Rubber Internal Medicine 11/24/20 Software Support Analyst Relationship Specialty Start Date End Date Jose Wolfe MD [address] [facility] [place] [place] [address] PCP - General Internal Medicine 11/10/10 Tristian Monique, biztalk software developerMolder Foam Rubber Internal Medicine 11/24/20 Software Support Analyst Relationship Specialty Start Date End Date Jose Wolfe MD [address] [facility] [place] [place] [address] PCP - General Internal Medicine 11/10/10 Tristian Monique, biztalk software developerMolder Foam Rubber Internal Medicine 11/24/20 Software Support Analyst Relationship Specialty Start Date End Date Jose Wolfe MD [address] [facility] [place] [place] [address] PCP - General Internal Medicine 11/10/10 Tristian Monique, biztalk software developerMolder Foam Rubber Internal Medicine 11/24/20 Software Support Analyst Relationship Specialty Start Date End Date oJse Wolfe MD [address] [facility] [place] [place] [address] PCP - General Internal Medicine 11/10/10 Dylon Lubin, biztalk software developerMolder Foam Rubber Internal Medicine 11/24/20 Software Support Analyst Relationship Specialty Start Date End Date Jose Wolfe MD [address] [facility] [place] [place] [address] PCP - General Internal Medicine 11/10/10 Dylon Lubin, biztalk software developerMolder Foam Rubber Internal Medicine 11/24/20 Software Support Analyst Relationship Specialty Start Date End Date Jose Wolfe MD [address] [facility] [place] [place] [address] PCP - General Internal Medicine 11/10/10 Dylon Lubin, biztalk software developerMolder Foam Rubber Internal Medicine 11/24/20 Software Support Analyst Relationship Specialty Start Date End Date Jose Wolfe MD [address] [facility] [place] [place] [address] PCP - General Internal Medicine 11/10/10 Dylon Lubin, biztalk software developerMolder Foam Rubber Internal Medicine 11/24/20 Software Support Analyst Relationship Specialty Start Date End Date Jose Wolfe MD [address] [facility] [place] [place] [address] PCP - General Internal Medicine 11/10/10 Dylon Lubin, biztalk software developerMolder Foam Rubber Internal Medicine 11/24/20 Software Support Analyst Relationship Specialty Start Date End Date Jose Wolfe MD [address] [facility] [place] [place] [address] PCP - General Internal Medicine 11/10/10 Dylon Lubin, biztalk software developerMolder Foam Rubber Internal Medicine 11/24/20 Software Support Analyst Relationship Specialty Start Date End Date Jose Wolfe MD [address] [facility] [place] [place] [address] PCP - General Internal Medicine 11/10/10 Dylon Lubin, biztalk software developerMolder Foam Rubber Internal Medicine 11/24/20 Software Support Analyst Relationship Specialty Start Date End Date Jose Wolfe MD [address] [facility] [place] [place] [address] PCP - General Internal Medicine 11/10/10 Dylon Lubin, biztalk software developerMolder Foam Rubber Internal Medicine 11/24/20 Software Support Analyst Relationship Specialty Start Date End Date Jose Wolfe MD [address] [facility] [place] [address] PCP - General Internal Medicine 11/10/10 Dylon Lubin, biztalk software developerMolder Foam Rubber Internal Medicine 11/24/20 Software Support Analyst Relationship Specialty Start Date End Date Jose Wolfe MD [address] [facility] [place] [address] PCP - General Internal Medicine 11/10/10 Dylon Lubin, biztalk software developerMolder Foam Rubber Internal Medicine 11/24/20 Software Support Analyst Relationship Specialty Start Date End Date Jose Wolfe MD [address] [facility] [place] [address] PCP - General Internal Medicine 11/10/10 Dylon Lubin, biztalk software developerMolder Foam Rubber Internal Medicine 11/24/20 Software Support Analyst Relationship Specialty Start Date End Date Jose Wolfe MD [address] [facility] [place] [address] PCP - General Internal Medicine 11/10/10 Dylon Lubin, biztalk software developerMolder Foam Rubber Internal Medicine 11/24/20 Software Support Analyst Relationship Specialty Start Date End Date Jose Wolfe MD [address] [facility] [place] [place] [address] PCP - General Internal Medicine 11/10/10 Dylon Lubin, biztalk software developerMolder Foam Rubber Internal Medicine 11/24/20 Software Support Analyst Relationship Specialty Start Date End Date Jose Wolfe MD [address] [facility] [place] [place] [address] PCP - General Internal Medicine 11/10/10 Dylon Lubin, biztalk software developerMolder Foam Rubber Internal Medicine 11/24/20 Software Support Analyst Relationship Specialty Start Date End Date Jose Wolfe MD [address] [facility] [place] [place] [address] PCP - General Internal Medicine 11/10/10 Dylon Lubin, biztalk software developerMolder Foam Rubber Internal Medicine 11/24/20 Software Support Analyst Relationship Specialty Start Date End Date Jose Wolfe MD [address] [facility] [place] [address] PCP - General Internal Medicine 11/10/10 Dylon Lubin, biztalk software developerMolder Foam Rubber Internal Medicine 11/24/20 Software Support Analyst Relationship Specialty Start Date End Date Jose Wolfe MD [address] [facility] [place] [address] PCP - General Internal Medicine 11/10/10 Dylon Lubin, biztalk software developerMolder Foam Rubber Internal Medicine 11/24/20 Software Support Analyst Relationship Specialty Start Date End Date Jose Wolfe MD [address] [facility] [place] [address] PCP - General Internal Medicine 11/10/10 Dylon Lubin, biztalk software developerMolder Foam Rubber Internal Medicine 11/24/20 Software Support Analyst Relationship Specialty Start Date End Date Jose Wolfe MD [address] [facility] [place] [place] [address] PCP - General Internal Medicine 11/10/10 Dylon Lubin, biztalk software developerMolder Foam Rubber Internal Medicine 11/24/20 Software Support Analyst Relationship Specialty Start Date End Date Jose Wolfe MD [address] [facility] [place] [place] [address] PCP - General Internal Medicine 11/10/10 Dylon Lubin, biztalk software developerMolder Foam Rubber Internal Medicine 11/24/20 Software Support Analyst Relationship Specialty Start Date End Date Jose Wolfe MD [address] [facility] [place] [address] PCP - General Internal Medicine 11/10/10 Dylon Lubin, biztalk software developerMolder Foam Rubber Internal Medicine 11/24/20 Software Support Analyst Relationship Specialty Start Date End Date Jose Wolfe MD [address] [facility] [place] [place] [address] PCP - General Internal Medicine 11/10/10 Dylon Lubin, biztalk software developerMolder Foam Rubber Internal Medicine 11/24/20 Software Support Analyst Relationship Specialty Start Date End Date Jose Wolfe MD [address] [facility] [place] [place] [address] PCP - General Internal Medicine 11/10/10 Dylon Lubin, biztalk software developerMolder Foam Rubber Internal Medicine 11/24/20 Software Support Analyst Relationship Specialty Start Date End Date Jose Wolfe MD [address] [facility] [place] [address] PCP - General Internal Medicine 11/10/10 Dylon Lubin, biztalk software developerMolder Foam Rubber Internal Medicine 11/24/20 Software Support Analyst Relationship Specialty Start Date End Date Jose Wolfe MD [address] [facility] [place] [address] PCP - General Internal Medicine 11/10/10 Dylon Lubin, biztalk software developerMolder Foam Rubber Internal Medicine 11/24/20 Software Support Analyst Relationship Specialty Start Date End Date Jose Wolfe MD [address] [facility] [place] [address] PCP - General Internal Medicine 11/10/10 Dylon Lubin, biztalk software developerMolder Foam Rubber Internal Medicine 11/24/20 Software Support Analyst Relationship Specialty Start Date End Date Jose Wolfe MD [address] [facility] [place] [address] PCP - General Internal Medicine 11/10/10 Dylon Lubin, biztalk software developerMolder Foam Rubber Internal Medicine 11/24/20 Software Support Analyst Relationship Specialty Start Date End Date Jose Wolfe MD [address] [facility] [place] [address] PCP - General Internal Medicine 11/10/10 Dylon Lubin RN Molder Foam Rubber Internal Medicine 11/24/20 Software Support Analyst Relationship Specialty Start Date End Date Jose Wolfe MD [address] [place] [address] PCP - General Internal Medicine 11/10/10 Dylon Lubin RN Molder Foam Rubber Internal Medicine 11/24/20 Software Support Analyst Relationship Specialty Start Date End Date Jose Wolfe MD [address] [place] [address] PCP - General Internal Medicine 11/10/10 Dylon Lubin RN M[employer] Internal Medicine 11/24/20 FOR RECORDS PERTAINING TO PATIENTS WHO ARE OR HAVE BEEN ENROLLED IN A CHEMICAL DEPENDENCY/SUBSTANCEABUSE PROGRAM, SOME INFORMATION MAY BE OMITTED. This clinical summary was aggregated from multiple sources. Caution should be exercised in using it in the provision of clinical care. This summary normalizes information from multiple sources, and as a consequence, information in this document may materially change the coding, format and clinical context of patient data. In addition, data may be omitted in some cases. CLINICAL DECISIONS SHOULD BE BASED ON THE PRIMARY CLINICAL RECORDS. [facility] [employer] [facility]. provides no warranty or guarantee of the accuracy or completeness of information in this document.
[2023-09-24 21:29] LABS: Lactic Acid 1.1 mmol/L (0.4-1.9)
[2023-09-24] MEDS: Ceftriaxone 1 GM/50 ML BAG IV (21:42)
--- NOTE | 2023-09-24 22:05 | HP.PCM.HOS_ITS ---
HPI - General General Date of Admission: 09/24/23 Date of Service: 09/24/23 Chief Complaint: Cough, dyspnea, fatigue, malaise, worsening. HPI Narrative The patient is an 83 y/o M w/ PMHx: Anxiety and Depression, BPH, HFpEF, HTN, HLD, Chronic anemia, PAF, COPD, Hx TIA/CVA, GERD, ROCKY, Chronic thrombocytopenia, CAD s/p CABG and PCI, Former tobacco use who presents to the [facility] ED on 09/24/23 with history of 2 weeks of progressively worsening fatigue, malaise, cough, lightheadedness and dizziness with near syncopal episode currently living with his who is also been ill however her symptoms have been not as pronounced and she is having difficulty also taking care of him prompting her to bring him to the ED for evaluation. Patient cough has been productive however the sputum has been clear of note. Workup in the ED included Tmax 99.5, heart rate 70, BP initially 193/85 with most recent repeat 138/74, respiratory rate 20 with oxygen ation initially 95% on room air decreasing down to 93% on room air, CBC with WBC 6.0, human 15.4, platelet 124 with lymphopenia, CMP with sodium 134, lactic acid 1.1, hepatic profile with T. bili 1.40, alk phos 121 otherwise unremarkable, lipase 47, troponin 11, urinalysis with specific remedy 1.015, protein 30, ketone 15, occult blood 50, nitrite positive, leukocyte Estrace 100, urine RBC and WBCs 10-25 with 2+ urine bacteria, blood culture x 2 pending per ED, urine culture pending per ED, rapid SARS COVID/influenza/RSV PCR with positive SARS COVID PCR, chest x-ray with poor inspiration with some bilateral bibasilar atelectasis, CT brain with no acute intracranial findings, EKG with sinus rhythm with no acute evidence of ischemia. In the ED patient administered Zofran 4 mg IV x 1, Solu-Medrol 60 mg IV x 1, butyryl and DuoNeb therapy, Rocephin 1 g IV x 1 as well as 1 L normal saline. [facility] Medical History (Updated 09/24/23 @ 23:[address] Khushboo Brown MD) (HFpEF) heart failure with preserved ejection fraction Actinic skin damage Acute coronary thrombosis not resulting in myocardial infarction Anemia Arthritis Atrial fibrillation BPH (benign prostatic hyperplasia) Cardiac arrest with ventricular fibrillation Cardiology follow-up encounter COPD (chronic obstructive pulmonary disease) Coronary artery disease CVA (cerebral vascular accident) (05/2018) DDD (degenerative disc disease), lumbar Esophageal reflux Essential (primary) hypertension Fatigue Fatigue Former smoker Gastric reflux High cholesterol History of atrial fibrillation History of echocardiogram History of stress test HLD (hyperlipidemia) Hypertension Insomnia Lower extremity edema Macular degeneration (senile) of retina, unspecified Mixed hyperlipidemia Paroxysmal A-fib Sleep apnea Syncope Thrombocytopenia TIA (transient ischemic attack) Wears dentures Wears glasses Wears hearing aid Home Medications tamsulosin 0.4 mg capsule 0.4 mg PO DAILY prostate 05/23/13 [History Last Taken 12/18/19] fluticasone furoate 100 mcg-vilanterol 25 mcg/dose inhalation powder (Breo Ellipta) 1 inh inhalation DAILY 12/24/21 [History Last Taken 09/02/22 07:30] pantoprazole 40 mg tablet,delayed release (Protonix) 40 mg PO DAILY #60 tabs 07/14/22 [Rx Last Taken Unknown] alprazolam 1 mg tablet 1 mg PO ONCE #1 TAB 02/01/23 [Rx Last Taken Unknown] isosorbide mononitrate 30 mg tablet,extended release 24 hr 30 mg PO DAILY #90 tabs 02/23/23 [Rx Last Taken Unknown] nitroglycerin 0.4 mg sublingual tablet 0.4 mg sublingual Q5M PRN Chest Pain #25 tabs 02/23/23 [Rx Last Taken Unknown] sotalol 120 mg tablet 120 mg PO BID heart/blood pressure #180 tabs 02/23/23 [Rx Last Taken Unknown] furosemide 40 mg tablet 40 mg PO DAILY #90 tabs 03/23/23 [Rx Last Taken Unknown] atorvastatin 80 mg tablet See Rx Instructions .Route .COMPLEX #90 tabs 05/09/23 [Rx Last Taken Unknown] apixaban 5 mg tablet (Eliquis) 5 mg PO BID #180 tabs 06/07/23 [Rx Last Taken Unknown] ferrous sulfate 325 mg (65 mg iron) tablet 325 mg PO DAILY #30 tabs 06/14/23 [Rx Last Taken Unknown] albuterol sulfate 90 mcg/actuation aerosol inhaler 1 puff inhalation Q4H PRN shortness of breath or wheezing 09/24/23 [History Last Taken Unknown] bupropion HCl 100 mg tablet,12 hr sustained-release 100 mg PO DAILY 09/24/23 [History Last Taken Unknown] Allergy/AdvReac Type Severity Reaction Status Date / Time lisinopril Allergy Severe Cough Verified 09/24/23 17:46 oxycodone [From Percocet] Allergy Severe Hallucinati Verified 09/24/23 17:46 ons pravastatin Allergy Intermediate Myalgia Verified 09/24/23 17:46 Quinolones Allergy Unknown Unknown Verified 09/24/23 17:46 pregabalin [From Lyrica] AdvReac Severe depression Verified 09/24/23 17:46 Family History Mother No problems noted. Father Cancer Sister Cancer Surgical History H/O coronary artery bypass surgery (03/27/04) History of cardiac catheterization History of cholecystectomy History of coronary artery stent placement (08/06/12) History of incisional hernia repair History of left heart catheterization (09/2016) History of tonsillectomy Hx of colonoscopy Hx of hernia repair Social History Smoking Status: Former smoker pack-years: 37 Tobacco: How many years used: 25 how long ago did patient quit smokin quit status: has quit before alcohol intake: current alcohol intake frequency: 0-2 drinks per day Alcohol type: beer and hard liquor substance use type: does not use caffeine: Yes Type: coffee Number of servings: 2 what type of physical activity do you participate in: none seatbelt use: always do you feel safe at home: Yes ROS ROS Narrative Admission Review of Systems: CONSTITUTIONAL: No weight loss, + weakness or fatigue, did have previous low- grade fevers and chills but this is improved over the last 2 weeks. HEENT: + Headache, congestion, rhinorrhea, sore throat although this is improved over the last 2 weeks. Eyes: No visual loss, blurred vision, double vision or yellow sclerae. Ears, Nose, Throat: No hearing loss, sneezing, congestion, runny nose or sore throat. SKIN: No rash or itching, lesions, wounds. CARDIOVASCULAR: + Chronic lower extremity swelling. No chest pain, chest pressure or chest discomfort, palpitations, orthopnea, syncopal events. RESPIRATORY: + Dyspnea, mildly productive cough, occasional wheezing. No hemoptysis. GASTROINTESTINAL: + anorexia, loose stools. No nausea, vomiting, abdominal pain, melena, BRBPR. GENITOURINARY: No dysuria, frequency, urgency or retention. NEUROLOGICAL: + headache. No dizziness, syncope, paralysis, ataxia, numbness or tingling in the extremities, focal weakness, change in bowel or bladder control, seizure. MUSCULOSKELETAL: + muscle, back pain, joint pain or stiffness. HEMATOLOGIC: No anemia. + Easy bleeding/bruising. LYMPHATICS: No enlarged nodes. No history of splenectomy. PSYCHIATRIC: + History of anxiety and depression. ENDOCRINOLOGIC: + reports of sweating, cold or heat intolerance. No polyuria or polydipsia. ALLERGIES: No history of asthma, hives, eczema or rhinitis. Vital Signs Vital Signs Vital Signs: 09/24/23 17:45 09/24/23 20:07 09/24/23 20:08 Temperature 95.4 F L 99.4 F H 99.4 F H Temperature Source Temporal Oral Oral Pulse Rate 70 64 72 Respiratory Rate 20 H 18 18 Respiratory Pattern Blood Pressure 193/85 H 176/95 H 176/95 H Blood Pressure Mean 121 122 122 Pulse Ox 95 93 93 Oxygen Delivery Method Room Air Room Air Room Air 09/24/23 20:13 09/24/23 20:43 09/24/23 21:45 Temperature 99.5 F H Temperature Source Pulse Rate 78 70 Respiratory Rate 26 H 22 H Respiratory Pattern Normal Tachypnea Blood Pressure 138/74 H Blood Pressure Mean 95 Pulse Ox 94 Oxygen Delivery Method Weight Weight: 171 lb 15.369 oz Body Mass Index (BMI) 27.7 Physical Exam Narrative Physical Examination: General: Awake, alert, oriented x 3 and cooperative, fatigued and ill-appearing, laying in the ED bed, no acute distress. Skin: Normal color, normal turgor, no icterus, no cyanosis except occasional staged ecchymoses, mild bilateral extremity venous stasis skin changes. HEENT: AT/NC, EOMI, PERRLA, dry MM, no carotid bruits or JVD noted. Lungs: Diminished, greater bases, occasional end expiratory wheeze, mildly increased respiratory rate but no distress, no rales or rhonchi. Heart: Regular rate and rhythm; no gallop, rub audible. Abdomen: Soft, overweight, NTTP, ND, hyperactive BS, no appreciated HSM. Extremities: No cyanosis, no clubbing, bilateral lower extremity distal edema, not markedly pitting, patient notes chronic Neurological: Patient awake, alert, oriented as noted, cognitive function suspect near baseline intact; pupils equally reactive to light and accommodati on, cranial nerves grossly normal, moving all 4 extremities, strength severely globally decreased secondary to acute presentation. Psychiatric: Affect appears flat, fatigued, ill-appearing, no acute evidence of depressive or anxiety feelings but does have underlying history. Results Lab / Micro Data 09/24/23 20:25 09/24/23 20:25 Labs: Laboratory Results - last 24 hr 09/24/23 20:25: WBC 6.0, RBC 4.59 L, Hgb 15.4, Hct 44.9, MCV 97.8 H, MCH 33.6 H, MCHC 34.3, RDW Std Deviation 47.4 H, RDW Coeff of Randall 13.2, Plt Count 124 L, MPV 10.7, Immature Gran % (Auto) 0.300, Neut % (Auto) 72.3 H, Lymph % (Auto) 13.6 L, [place] % (Auto) 13.3 H, Eos % (Auto) 0.2, Baso % (Auto) 0.3, Absolute Neuts (auto) 4.3, Absolute Lymphs (auto) 0.81 L, Nucleated RBC % 0, Sodium 134 L, Potassium 4.1, Chloride 102, Carbon Dioxide 26.0, Anion Gap 6, BUN 14, Creatinine 1.09, Estim Creat Clear Calc 50.46, Est GFR (MDRD) Af Amer 83, Est GFR (MDRD) Non-Af 69, BUN/Creatinine Ratio 12.8, Glucose 100, Calcium 8.7, Total Bilirubin 1.40 H, AST 21, ALT 26, Alkaline Phosphatase 121 H, Troponin I High Sens 11, Total Protein 6.8, Albumin 3.6, Globulin 3.2, Albumin/Globulin Ratio 1.1, Lipase 47, Urine Color Yellow, Urine Clarity Sl. Cloudy, Urine pH 6.0, Ur Specific [place] 1.015, Urine Protein 30 H, Urine Glucose (UA) Normal, Urine Ketones 15 H, Urine Occult Blood 50 H, Urine Nitrite Positive H, Urine Bilirubin Negative, Urine Urobilinogen 8 H, Ur Leukocyte Esterase 100 H, Urine RBC 10-25 SEEN, Urine WBC 10-25 SEEN, Ur Squamous Epith Cells 0 SEEN, Urine Bacteria 2+, Urine Mucus 0 SEEN 09/24/23 20:50: Lactic Acid 1.1 Micro: Microbiology 09/24/23 20:25 Mucosa - Nose SARS-CoV-2, Influenza & RSV (PCR) - Final SARS-CoV-2 (COVID 19) Imaging Radiology Impression Chest X-Ray 09/24/23 21:11 IMPRESSION: Poor inspiration with some bibasilar atelectasis. Electronically Signed: Ronnie Gonzalez MD at 21:55 EST , Assessment & Plan Assessment/Plan (1) COVID-19: (2) Acute UTI: PLAN: Plan The patient is an 83 y/o M w/ PMHx: Anxiety and Depression, BPH, HFpEF, HTN, HLD, Chronic anemia, PAF, COPD, Hx TIA/CVA, GERD, ROCKY, Chronic thrombocytopenia, CAD s/p CABG and PCI, Former tobacco use who presents to the [facility] ED on 09/24/23 with history of 2 weeks of progressively worsening fatigue, malaise, cough, lightheadedness and dizziness with near syncopal episode currently living with his who is also been ill however her symptoms have been not as pronounced and she is having difficulty also taking care of him prompting her to bring him to the ED for evaluation. #1. Adult FTT, multifactorial, secondary to Acute Hypoxia secondary to Acute Viral Syndrome, COVID-19 complicated by Acute on Chronic COPD Exacerbation and #2: Will admit to the [facility], given patient symptom timeline he no longer needs to be on any COVID precautions of note, will maintain on oxygen with wean as tolerated to room air, ATC budesonide, PRN albuterol, HOB, IS parameters, will obtain D-dimer, procalcitonin, CRP, CPK, Ferritin, LDH and BNP, continue supportive care, judicious hydration, closely monitor for worsening status for ARDS and multiorgan failure, will initiate and continue IV decadron x 10 doses given oxygenation < 94%, currently given greater than 10-day timeline patient would not be appropriate candidate for IV remdesivir even if onset of oxygen requirement. #2. Acute Complicated Urinary Tract Infection: UA upon ED evaluation remarkable, pending UCx, continue judicious IVFs, monitor I/Os, continue IV Roce phin w/ transition as able pending sensitivities and speciation. Bld cx x 2 obtained in the ED. #3. Thrombocytopenia, acute on chronic: Admission platelets 124 which has occurred previously however he was normal per labs in 2022, suspect reactive given his acute presentation, continue to trend CBC. #4. HFpEF: 03/31/2022 echocardiogram with normal LV size, LV systolic function normal, EF 60%, mild concentric LVH, will continue judicious hydration as noted, monitor for overload especially given #1, continue apixaban, statin, sotalol, not on KEITH inhibitor/ARB, continue Lasix with hold parameters as needed. #5. CAD: Status post CABG and PCI, will continue apixaban, statin, sotalol, not on ACEI/ARB. #6. PAF: We will continue patient home sotalol as well as apixaban regimen cautiously given elevated fall risk especially with his presentation currently. #7. Hypertension: Continue home regimen including Lasix, isosorbide cautiously with hold parameters as needed, PRN hydralazine. #8. Hyperlipidemia: We will continue patient on statin therapy. #9. Anxiety and depression: We will continue patient home bupropion regimen and very cautiously once clarified alprazolam to avoid any withdrawal but hold for sedation. #10. BPH: Will continue patient on Flomax regimen. #11. History of TIA/CVA: Will continue patient home apixaban, statin, hypertensive regimen as noted. #12. Former tobacco use: Encourage continued tobacco cessation. #13. GERD: Will continue patient on PPI #14. ROCKY: CPAP nightly #15. DVT prophylaxis: We will continue patient home apixaban regimen. #16. CODE status: Patient SHAAN is his and living will is currently in place. Discussed CODE status at length including difference between FULL code, DNR-CCA and DNR-CC status. Following discussions about the differences in these status, requested Full Code status. Advanced Care Planning Face to Face Time: 16 minutes. Charges/Coding Visit Charges Inpatient E&M: 78283 Init Hosp L3 Procedures Hospitalists Procedures: 95132 Advncd Care Plan 30 Min
[2023-09-24 22:35] LABS: Erythrocyte Sedimentation Rate 6 mm/hr (0-20)
[2023-09-24 22:48] LABS: D-Dimer Quantitative (DVT/PE) 0.32 FEU/ug/m (0.27-0.49)
--- OUTSIDE RECORDS SUMMARY | 2023-09-24 23:03 | XMS RPT_ITS | CCD ---
Author Name Unknown Address [id number] [place] [address] Organization [facility] Care Team Providers Care Rn Patient Care Name Role Phone Aiden MEJIA, Jose Anaya Primary Care Provider [phone] Dylon RN, Tristian Laureano Unavailable Unavailbreezy Wolfe MD, Jose Anaya Primary Care Provider [phone] Tristian RN, Dylon Laureano Unavailable Unavailbreezy Lubin [...] Anaya Primary Care Unavailable WOLFE, JOSE Anaya Primary Care Unavailable SOHA AKHTAR [...] INOPHEN] Drug Allergy 0 Mental Status Change [facility] (9 sources) Angiotensin-conve rting enzyme inhibitor agent; Translations: [KEITH INHIBITORS] Drug Intolerance 3 Cough [facility] Work Phone: (20 sources) pregabalin; Translations: [PREGABALIN] Drug Allergy 5 Mental Status Change [facility] (20 sources) Angiotensin-conve rting enzyme inhibitor agent Drug Intolerance 3 Cough [facility] Work Phone: Medications Current Medications Medication Drug [...] Drug Class(es) Dates Sig (Normalized) Sig (Original) [id number] 200 actuat albuterol 0.09 mg/actuat metered dose [...] Coronary atherosclerosis; Translations: [Atherosclerotic heart disease of tetlin coronary artery without angina pectoris] Onset: 03-25-2005 [...] aftercare (20 sources) Drug therapy finding; Translations: [FPC (current) use of anticoagulants] Onset: 6 10-15-2022 [...] 97.11 [degF] Jose Wolfe MD Work Phone: [facility] 06-28-2023 11:36-0500 Body weight 84.82 kg Jose Wolfe MD Work Phone: [facility] 06-28-2023 11:36-0500 Diastolic blood pressure 66 mm[Hg] Jose Wolfe MD Work Phone: [facility] 06-28-2023 11:36-0500 Heart rate 64 /min Jose Wolfe MD Work Phone: [facility] 06-28-2023 11:36-0500 Respiratory rate 18 /min Jose Wolfe MD Work Phone: [facility] 06-28-2023 11:36-0500 SaO2% (BldA) [Mass fraction] 97 % Jose Wolfe MD Work Phone: [facility] 06-28-2023 11:36-0500 Systolic blood pressure 126 mm[Hg] Jose Wolfe MD Work Phone: [facility] 05-25-2023 10:54-0500 Body weight 84.82 kg Sun Older [employer]ORER [employer]YING [employer].PROSTHETIC TECHNICIAN Work Phone: [facility] 05-25-2023 10:54-0500 Diastolic blood pressure 70 mm[Hg] Sun Older [employer]ER [employer].PROSTHETIC TECHNICIAN Work Phone: [facility] 05-25-2023 10:54-0500 Heart rate 60 /min Sun Older [employer].PROSTHETIC TECHNICIAN Work Phone: [facility] 05-25-2023 10:54-0500 Systolic blood pressure 124 mm[Hg] Sun Older [employer].PROSTHETIC TECHNICIAN Work Phone: [facility] 05-16-2023 12:12-0400 Body temperature 97.59 [degF] Sun Older [employer].PROSTHETIC TECHNICIAN Work Phone: [facility] 05-16-2023 12:12-0400 Body weight 86.64 kg Sun Older [employer]ER [employer].PROSTHETIC TECHNICIAN Work Phone: [facility] 05-16-2023 12:12-0400 Diastolic blood pressure 66 mm[Hg] Sun Older [employer].PROSTHETIC TECHNICIAN Work Phone: [facility] 05-16-2023 12:12-0400 Heart rate 68 /min Sun Older [employer].PROSTHETIC TECHNICIAN Work Phone: [facility] 05-16-2023 12:12-0400 Respiratory rate 16 /min Sun Older [employer].PROSTHETIC TECHNICIAN Work Phone: [facility] 05-16-2023 12:12-0400 Systolic blood pressure 124 mm[Hg] Sun Older [employer].PROSTHETIC TECHNICIAN Work Phone: [facility] 04-15-2023 10:17-0400 Diastolic blood pressure 82 mm[Hg] Suzan Villalpando MD Work Phone: [facility] 04-15-2023 10:17-0400 Systolic blood pressure 122 mm[Hg] Suzan Villalpando MD Work Phone: [facility] 04-15-2023 09:50-0400 Body height 163.8 cm Pulm Wstr Work Phone: [facility] 04-15-2023 09:50-0400 Body weight 85.28 kg Pulm Wstr Work Phone: [facility] 04-15-2023 09:50-0400 Heart rate 61 /min Pulm Wstr Work Phone: [facility] 04-15-2023 09:50-0400 Respiratory rate 12 /min Pulm Wstr Work Phone: [facility] 04-15-2023 09:50-0400 SaO2% (BldA) [Mass fraction] 99 % Pulm Wstr Work Phone: [facility] 01-10-2023 15:00-0400 Body weight 86.64 kg Jose Wolfe MD Work Phone: [facility] 01-10-2023 15:00-0400 Diastolic blood pressure 66 mm[Hg] Jose Wolfe MD Work Phone: [facility] 01-10-2023 15:00-0400 Heart rate 64 /min Jose Wolfe MD Work Phone: [facility] 01-10-2023 15:00-0400 Respiratory rate 16 /min Jose Wolfe MD Work Phone: [facility] 01-10-2023 15:00-0400 Systolic blood pressure 124 mm[Hg] Jose Wolfe MD Work Phone: [facility] 11-22-2022 11:15-0400 Body height 163.8 cm Sun Gan APRN.CNP Work Phone: [facility] 11-22-2022 11:15-0400 Body temperature 96.4 [degF] Sun Older [employer].PROSTHETIC TECHNICIAN Work Phone: [facility] 11-22-2022 11:15-0400 Body weight 87.41 kg Sun Older [employer].PROSTHETIC TECHNICIAN Work Phone: [facility] 11-22-2022 11:15-0400 Diastolic blood pressure 64 mm[Hg] Sun Older [employer]ER [employer].PROSTHETIC TECHNICIAN Work Phone: [facility] 11-22-2022 11:15-0400 Heart rate 65 /min Sun Older [employer].PROSTHETIC TECHNICIAN Work Phone: [facility] 11-22-2022 11:15-0400 Respiratory rate 16 /min Sun Older [employer].PROSTHETIC TECHNICIAN Work Phone: [facility] 11-22-2022 11:15-0400 SaO2% (BldA) [Mass fraction] 99 % Sun Older [employer].PROSTHETIC TECHNICIAN Work Phone: [facility] 11-22-2022 11:15-0400 Systolic blood pressure 122 mm[Hg] Sun Older [employer].PROSTHETIC TECHNICIAN Work Phone: [facility] 10-15-2022 10:35-0400 Body weight 88.36 kg Yamilex Jessee PA-C Work Phone: [facility] 10-15-2022 10:35-0400 Diastolic blood pressure 64 mm[Hg] Yamilex Jessee PA-C Work Phone: [facility] 10-15-2022 10:35-0400 Heart rate 58 /min Yamilex Jessee PA-C Work Phone: [facility] 10-15-2022 10:35-0400 SaO2% (BldA) [Mass fraction] 98 % Yamilex Jessee PA-C Work Phone: [facility] 10-15-2022 10:35-0400 Systolic blood pressure 106 mm[Hg] Yamilex Jessee PA-C Work Phone: [facility] 01-11-2023 11:46-0500 Body temperature 96.91 [degF] Jose Wolfe MD Work Phone: [facility] 07-28-2022 11:46-0500 Body weight 86.18 kg Jose Wolfe MD Work Phone: [facility] 07-28-2022 11:46-0500 Diastolic blood pressure 66 mm[Hg] Jose Wolfe MD Work Phone: [facility] 07-28-2022 11:46-0500 Heart rate 68 /min Jose Wolfe MD Work Phone: [facility] 07-28-2022 11:46-0500 Respiratory rate 16 /min Jose Wolfe MD Work Phone: [facility] 07-28-2022 11:46-0500 Systolic blood pressure 114 mm[Hg] Jose Wolfe MD Work Phone: [facility] 05-24-2022 10:39-0500 Body temperature 97.39 [degF] Rin Bogner PA-C Work Phone: [facility] 05-24-2022 10:39-0500 Body weight 87.54 kg Rin Bogner PA-C Work Phone: [facility] 05-24-2022 10:39-0500 Diastolic blood pressure 64 mm[Hg] Rin Bogner PA-C Work Phone: [facility] 05-24-2022 10:39-0500 Heart rate 70 /min Rin Bogner PA-C Work Phone: [facility] 05-24-2022 10:39-0500 Respiratory rate 16 /min Rin Bogner PA-C Work Phone: [facility] 05-24-2022 10:39-0500 SaO2% (BldA) [Mass fraction] 97 % Rin Bogner PA-C Work Phone: [facility] 05-24-2022 10:39-0500 Systolic blood pressure 112 mm[Hg] Rin Bogner PA-C Work Phone: [facility] Encounters Encounter Date Encounter Type Care Provider Facility Start: 09-21-2023 ambulatory Dylon Lubin RN Am bulatory Care Management Procedures Date Procedure Procedure Detail Performing Clinician Start: 05-16-2023 PFIZER-BIONTECH COVI D-19 VACCINE ( SEASON) AGE 12+ YR Sun Older [employer].PROSTHETIC TECHNICIAN Work Phone: Start: 05-16-2023 INFLUENZA VACCINE, P RSV FREE, AGE 65+ YR, HIGH DOSE, QUADRIVALENT (FLUZONE HIGH-DOSE) Sun Older [employer].PROSTHETIC TECHNICIAN Work Phone: Start: 05-10-2023 Ct head/brain w/o co ntrast material Sun Older [employer].PROSTHETIC TECHNICIAN Work Phone: Start: 04-15-2023 Co diffusing capacity A susannah Akhtar [employer].PROSTHETIC TECHNICIAN Work Phone: Start: 01-10-2023 Urnls dip stick/tabl et rgnt auto w/o microscopy Jose Wolfe MD Work Phone: Start: 11-22-2022 PFIZER-BIONTECH COVI D-19 BIVALENT VACCINE, AGE 12+ YR Sun Older [employer] Work Phone: Start: 10-15-2022 Radiologic exam ches t 2 views Soha Akhtar [employer].PROSTHETIC TECHNICIAN Work Phone: Plan of Treatment Date Care Activity Detail Author Start: 06-28-2026 Diabetes Screening Diabetes Screenin [facility] Start: 05-09-2026 Diabetes Screening Diabetes Screenin g [facility] Start: 11-15-2025 DIABETES SCREEN DIABETES SCREEN [facility] Start: 11-15-2025 Diabetes Screening Diabetes Screenin g [facility] Start: 08-05-2024 DIABETES SCREEN DIABETES SCREEN [facility] Start: 05-25-2024 RSV Vaccine (1 - 1-d ose 60+ series) RSV Vaccine (1 - 1-dose 60+ series) [facility] Immunizations Immunization Date Immunization Notes Care Provider Fa cility 05-16-2023 COVID-19 vaccine, ag e 12+ yr, season (PFIZER-BIONTECH) Sun Older [employer] Work Phone: [facility] Work Phone: 05-16-2023 influenza (HD-IIV4) vaccine, age 65+ yr, high dose, quadrivalent, PF (FLUZONE HIGH-DOSE) Sun Older [employer] Work Phone: [facility] Work Phone: 11-22-2022 COVID-19 vaccine, ag e 12+ yr, bivalent (PFIZER-BIONTECH) Sun Older [employer] Work Phone: [facility] 05-17-2022 influenza virus vacc ine, unspecified formulation Dylon Lubin RN [facility] 05-26-2021 influenza (aIIV4) vaccine, age 65+ yr, quadrivalent, PF (FLUAD QUADRIVALENT) Tristian Monique RN [facility] Work Phone: 10-13-2020 COVID-19 vaccine, fu ll dose (MODERNA) Tristian Monique [facility] Work Phone: 09-15-2020 COVID-19 vaccine, fu ll dose (MODERNA) Tristian Monique [facility] Work Phone: 04-09-2020 influenza, high dose seasonal, preservative-free Tristian Monique RN [facility] Work Phone: 04-09-2020 influenza, high-dose , quadrivalent vaccine (FLUZONE HIGH DOSE QUADRIVALENT) Tristian Monique RN [facility] Work Phone: 05-04-2019 influenza, high dose seasonal, preservative-free Tristian Monique RN [facility] Work Phone: 04-04-2018 influenza, high dose seasonal, preservative-free Tristian Monique RN [facility] Work Phone: 04-02-2017 influenza, high dose seasonal, preservative-free Tristian Monique RN [facility] 03-31-2016 influenza, high dose seasonal, preservative-free Tristian Monique RN [facility] Work Phone: 10-17-2015 pneumococcal polysaccharide vaccine, 23 valent Tristian Monique RN [facility] Work Phone: 05-21-2015 influenza, high dose seasonal, preservative-free Tristian Monique RN [facility] 10-03-2014 pneumococcal conjuga te vaccine, 13 valent Tristian Monique RN [facility] 04-22-2014 influenza, high dose seasonal, preservative-free Tristian Monique RN [facility] 06-28-2012 zoster vaccine, live Tristian Monique RN [facility] Work Phone: 04-26-2012 influenza virus vacc ine, unspecified formulation Tristian Monique RN [facility] Work Phone: 04-09-2011 tetanus and diphther ia toxoids, adsorbed, preservative free, for adult use (2 Lf of tetanus toxoid and 2 Lf of diphtheria toxoid) Tristian Monique RN [facility] 04-12-2009 influenza virus vacc ine, unspecified formulation Tristian Monique RN [facility] 05-22-2007 influenza virus vacc ine, unspecified formulation Tristian Monique RN [facility] Work Phone: 05-11-2006 influenza virus vacc ine, unspecified formulation Tristian Monique RN [facility] Work Phone: 05-18-2005 influenza virus vacc ine, unspecified formulation Tristian Monique RN [facility] Work Phone: 04-17-2004 pneumococcal polysaccharide vaccine, 23 valent Tristian Monique RN [facility] 11-19-1994 hepatitis B vaccine, pediatric or pediatric/adolescent dosage Tristian Monique RN [facility] Work Phone: 06-23-1994 hepatitis B vaccine, pediatric or pediatric/adolescent dosage Tristian Monique RN [facility] Work Phone: 05-21-1994 hepatitis B vaccine, pediatric or pediatric/adolescent dosage Tristian Monique RN [facility] Work Phone: Payers Date Payer Category Payer Unknown HOSPITAL/MEDICAL GENERIC MEDICAL GENERIC [id number] 2021-Present [phone] [address] [address] [place] [address] Indemnity [id number] 2021 Unknown [id number] 1998 Medicare MEDICARE MEDICAR E A AND B [id number] 1998-Present [phone] [place] [address] Medicare [id number] 1998 Medicare MEDICARE MEDICAR E A AND B [id number] 1998-Present [phone] [place] [address] Medicare [id number] 1998 Medicare [id number] Social History Date Type Detail Facility Start: 12-09-2020 End: 05-24-2022 Tobacco smoking status NHIS Ex-smoker [facility] Start: 1958 End: 03-11-1981 History of tobacco use Current smoker [facility] Start: 1958 End: 03-11-1981 History of tobacco use Cigarette Smoker [facility] Start: 09-17-2021 End: 10-15-2022 Alcohol intake Current drinker of alcohol (finding) [facility] Start: 09-17-2021 End: 11-22-2022 Alcohol intake [facility] Work Phone: Start: 12-09-2020 End: 05-24-2022 Tobacco Comment No household ETS. [facility] Start: 1940 Sex Assigned At Not on file C [facility] Start: 12-09-2020 End: 05-24-2022 Tobacco use and exposure Smokeless tobacco non-user [facility] Work Phone: Start: 04-18-2022 End: 05-24-2022 Exposure to SARS-CoV-2 (event) Not sure [facility] Start: 11-22-2022 End: 01-10-2023 Tobacco use panel [facility] Work Phone: Adult Depression Screening Assessment 0 [facility] Work Phone: Start: 05-25-2023 End: 08-02-2023 Alcohol intake Ex-drinker (finding) [facility] Start: 05-25-2023 Alcohol Comment 1-2 beers a day [facility] Goals Date Patient Goal Desired Activity /State Personal health goal Clinical Notes 12-09-2017 to 09-21-2023 Dylon Lubin RN - 09/21/2023 3:35 PM ESTTelephone Encounter - Henrique Pss, Thelma - 09/19/2023 3:53 PM ESTTelephone Encounter - Henrique Pss, Thelma - 09/19/2023 3:52 PM ESTPatient Instructions Note Date & Type Note Facility 09-21-2023 Note HNO ID: [id number] Author: DYLON LUBIN RN Service: ? Author Type: Registered Nurse Type: Progress Notes Filed: 09/21/2023 15:57 Note Text: CDM Telephonic Outreach Provider Action/FYI CDM: COPD Spk with spouse Ica she reported Damon is recently more tired with possible memory issues He is being evaluated by [facility], Ica noted Damon completed a CT, [...] to talk about today? Yes Based on cheese grader, the following disposition is advised: No symptoms or symptoms present, not severe. Routed to: No Action Needed ELIA Education Provided this Outreach: No Dylon Lubin RN September 21, 2023 3:36 PM [facility] 09-21-2023 History of Presen t illness Narrative CDM Telephonic Outreach Provider Action/FYI CDM: COPD Spk with spouse Ica she reported Damon is recently more tired with possible memory issues He is being evaluated by [facility], Ica noted Damon completed a CT, [...] to talk about today? Yes Based on cheese grader, the following disposition is advised: No symptoms or symptoms present, not severe. Routed to: No Action Needed ELIA Education Provided this Outreach: No Dylon Lubin RN September 21, 2023 3:36 PM documented in this encounter [facility] 09-21-2023 Note Patient Outreach (AM [facility]) DAMON SWAN ([id number]) 1940 M Date Time Provider Department 09/21/23 [place]YL[place]UB[place] [facility] [place] your visit today, we recorded the following information about you: Dylon Lubin RN 09/21/2023 3:57 PM Signed CDM Telephonic Outreach Provider Action/FYI CDM: COPD Spk with spouse Ica she reported Damon is recently more tired with possible memory issues He is being evaluated by [facility], Ica noted Damon completed a CT, [...] to talk about today? Yes Based on cheese grader, the following disposition is advised: No symptoms [...] Adenomatous polyp of (more content not included)... [facility] 09-19-2023 Miscellaneous Notes Patient's wants to know [...] you. Thelma Alex. documented in this encounter [facility] 08-19-2023 Note HNO ID: [id number] Author: DYLON LUBIN RN Service: ? Author [...] depression, denies the need to spk to [facility], will contact PCP office for changes in symptoms, concerns or needs. Contacted for: Routine Telephonic Outreach Contact made with patient: Yes Patient identified by name and date of . Discussed care with patient Are you experiencing any new or worsening symptoms you need to talk about today? Yes Based on cheese grader, the following disposition is advised: No symptoms or symptoms present, not severe. Routed to: No Action Needed ELIA Education Provided this Outreach: No Dylon Lubin RN August 19, 2023 3:34 PM [facility] 08-19-2023 History of Presen t illness Narrative [...] depression, denies the need to spk to [facility], will contact PCP office for changes in symptoms, concerns or needs. Contacted for: Routine Telephonic Outreach Contact made with patient: Yes Patient identified by name and date of . Discussed care with patient Are you experiencing any new or worsening symptoms you need to talk about today? Yes Based on cheese grader, the following disposition is advised: No symptoms [...] 2023 2:09 PM documented in this encounter [facility] 08-18-2023 Note HNO ID: [id number] Author: DYLON LUBIN RN Service: ? Author [...] Lubin RN August 18, 2023 2:09 PM [facility] 08-18-2023 Note Patient Outreach (AM [facility]) DAMON SWAN ([id number]) 1940 M Date Time Provider Department 08/18/23 DYLON LUBIN [facility] [place] your visit today, we recorded the [...] depression, denies the need to spk to [facility], will contact PCP office for changes in symptoms, concerns or needs. Contacted for: Routine Telephonic Outreach Contact made with patient: Yes Patient identified by name and date of . Discussed care with patient Are you experiencing any new or worsening symptoms you need to talk about today? Yes Based on cheese grader, the following disposition is advised: No symptoms [...] 02/13/2014 Melanocytic nev (more content not included)... [facility] 08-02-2023 Note HNO ID: [id number] Author: JOSE WOLFE MD Service: ? Author Type: Physician Type: Progress Notes Filed: 08/02/2023 18:14 Note Text: This note was created using Toplistter. Subjective Patient presents with: 5 week follow-up [...] Arteries Anticoagulated Atherosclerosis of Coronary Artery of [place] Heart With Angina Pectoris (Hcc) Current Outpatient [...] Stable. 3. 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 4. Atrial fibrillation (HCC) - ICD9: 427.31, ICD10: I48.91 Controlled. 5. Essential hypertension - ICD9: (more content not included)... [facility] 07-17-2023 Note HNO ID: [id number] Author: Dylon Lubin RN Service: ? Author [...] Lubin RN July 17, 2023 1:25 PM [facility] 07-17-2023 History of Presen t illness Narrative [...] 2023 11:03 AM documented in this encounter [facility] 07-14-2023 Note Patient Outreach (AM [facility]) DAMON SWAN ([id number]) 1940 M Date Time Provider Department 07/14/23 DYLON LUBIN [facility] [place] your visit today, we recorded the [...] bilateral carotid art*01/23/20 (more content not included)... [facility] 07-14-2023 Note HNO ID: [id number] Author: Dylon Lubin RN Service: ? Author [...] Lubin RN July 14, 2023 11:03 AM [facility] 07-01-2023 Miscellaneous Notes Pt called in and [...] to office. Please read below and advise. Courtney Thomas MA ----- Message from Jose Wolfe MD sent at 06/30/2023 5:27 PM EST ----- Test results are okay EXCEPT urinalysis abnormal. Do urine culture & sensitivity. Submit a new specimen properly collected if needed. documented in this encounter [facility] 06-28-2023 Note HNO ID: [id number] Author: Jose Wolfe MD Service: ? Author Type: Physician Type: Progress Notes Filed: 06/28/2023 10:58 PM Note Text: This note was created using Its Time Complianceriter. Subjective Damon Swan is a 83 year old male here for excessive sleepiness fatigue, confusion. Mental status varied, and this had been ongoing for 2 months. He had been followed regularly by Dr. Concepcion, [facility] due to his history of TIA, [...] Arteries Anticoagulated Atherosclerosis of Coronary Artery of [place] Heart With Angina Pectoris (Hcc) Social History [...] is cooperative. Cognit (more content not included)... [facility] 06-28-2023 History of Presen t illness Narrative This note was created using Its Time Complianceriter. Subjective Damon Swan is a 83 year old male here for excessive sleepiness fatigue, confusion. Mental status varied, and this had been ongoing for 2 months. He had been followed regularly by Dr. Concepcion, [facility] due to his history of TIA, [...] Arteries Anticoagulated Atherosclerosis of Coronary Artery of [place] Heart With Angina Pectoris (Hcc) Social History [...] Jose Wolfe MD documented in this encounter [facility] 06-21-2023 Miscellaneous Notes Patient Ica calling for MRI results, she said no one had called with them, her did not remember talking to anyone. Went over results, notes below from Sun Gan SERVER SECURITY ADMINISTRATOR with understanding. said went to Neurology appt on 06/14/2023. Patient notified of provider's message below. Pt states yes, he did see Neurology on 06/14. Pt is waiting passport application examiner from them after they review his recent Brain MRI result, as well. NIVIA Jewell APRN.CNP 06/16/2023 11:16 AM EST Please let the patient know there were not acute findings on the MRI. It did however show multiple past infarcts (ischemic strokes). Did he follow-up with his neurologist on 06/14? Sun Gan APRN.PROSTHETIC TECHNICIAN documented in this encounter [facility] 06-15-2023 Note HNO ID: [id number] Author: Derik Martinez, SAMIRA Service: Radiology Author [...] SAMIRA Akins June 15, 2023 4:14 PM [facility] 06-15-2023 History of Presen t illness Narrative [...] 2023 4:14 PM documented in this encounter [facility] 06-06-2023 Miscellaneous Notes Patient returned call and went over notes below from Sun Gan SERVER SECURITY ADMINISTRATOR with understanding. Aware rx sent to pharmacy. Left vm for patient to return call to nurse for provider message. Ativan 0.5 mg sent, take at least one hour prior to MRI appointment time. Please make sure patient is aware this can cause drowsiness and he should not drive himself for the MRI Sun Gan APRN.PROSTHETIC TECHNICIAN Patient calls and states that he has MRI scheduled on 06/15/2023. Patient asking if provider can send him prescription into [facility] for medication to help calm him while doing MRI? Please review and advise, Renée Kelly RN documented in this encounter [facility] 06-01-2023 Miscellaneous Notes Patient notified of below results, verbalized understanding. Arely Mckenna LPN Urine negative for infection. Anemia has improved. B12, Vitamin D, iron levels normal Sun aGn APRN.DEON Pt asking for lab results from 05/25/2023. Annetta Young LPN documented in this encounter [facility] 05-30-2023 Note HNO ID: [id number] Author: Dylon Lubin RN Service: ? Author [...] more often than normal? No Based on cheese grader, the following disposition is advised: No symptoms or symptoms present, not severe. Routed to: No Action Needed ELIA Education Provided this Outreach: No yDlon Lubin RN May 30, 2023 5:39 PM [facility] 05-30-2023 History of Presen t illness Narrative [...] more often than normal? No Based on cheese grader, the following disposition is advised: No symptoms or symptoms present, not severe. Routed to: No Action Needed ELIA Education Provided this Outreach: No Dylon Lubin RN May 30, 2023 5:39 PM documented in this encounter [facility] 05-30-2023 Note Patient Outreach (AM [facility]) DAMON SWAN ([id number]) 1940 M Date Time Provider Department 05/30/23 [place] [facility] [place] today, we recorded the [...] more often than normal? No Based on cheese grader, the following disposition is advised: No symptoms [...] Date Reviewed: 05/25/2023 Reviewed by: Sun Gan APRN.PROSTHETIC TECHNICIAN - Fully Assessed Reason for Visit: Community [...] legs [R60.0] 10/03 (more content not included)... [facility] 05-25-2023 Note HNO ID: [id number] Author: Sun Gan APRN.DEON Service: ? Author [...] ATHEROSCLER UNSPEC VESSEL 03/25/2005 Coronary atherosclerosis of tetlin coronary artery CVA (cerebral vascular accident) (HCC) 1999 DDD (degenerative disc disease), lumbar 07/18/2013 Dr. Gates, [facility]. Dr. Mondragon. Pain Management. Depression 06/09/2011 External hemorrhoids without mention of complication Flatulence, eructation, and gas pain Hypertrophy of prostate with urinary obstruction and other lower urinary tract symptoms (LUTS) Impaired fasting glucose 10/17/2015 Incisional hernia without mention of obstruction or gangrene 11/2007 Legal blindness, as defined in [place] Reflux esophagitis Thrombocytopenia ([facility]) 09/26/2014 Transient cerebral ischemia 12/09/2017 Unspecified constipation [...] 08/04/2012 subsequent PTCA and CHAD to RCA( [facility]) LEFT HEART CATH,PERCUTANEOUS 05/11/2006 Cardiac cath, [...] evening. apixaban (ELIQUIS) (more content not included)... [facility] 05-25-2023 History of Presen t illness Narrative [...] ATHEROSCLER UNSPEC VESSEL 03/25/2005 Coronary atherosclerosis of tetlin coronary artery CVA (cerebral vascular accident) ([facility]) 1999 DDD (degenerative disc disease), lumbar 07/18/2013 Dr. Gates, [facility]. Dr. Mondragon. Pain Management. Depression 06/09/2011 External hemorrhoids without mention of complication Flatulence, eructation, and gas pain Hypertrophy of prostate with urinary obstruction and other lower urinary tract symptoms (LUTS) Impaired fasting glucose 10/17/2015 Incisional hernia without mention of obstruction or gangrene 11/2007 Legal blindness, as defined in [place] Reflux esophagitis Thrombocytopenia ([facility]) 09/26/2014 Transient cerebral ischemia 12/09/2017 Unspecified constipation [...] 08/04/2012 subsequent PTCA and CHAD to RCA( [facility]) LEFT HEART CATH,PERCUTANEOUS 05/11/2006 Cardiac cath, [...] IVCON 5. 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, unspecified vessel or [...] Sun Gan APRN.DEON documented in this encounter [facility] 05-16-2023 Note HNO ID: [id number] Author: Sun Gan APRN.CNP Service: ? Author [...] ATHEROSCLER UNSPEC VESSEL 03/25/2005 Coronary atherosclerosis of tetlin coronary artery CVA (cerebral vascular accident) (HCC) 1999 DDD (degenerative disc disease), lumbar 07/18/2013 Dr. Gates, [facility]. Dr. Mondragon. Pain Management. Depression 06/09/2011 External hemorrhoids without mention of complication Flatulence, eructation, and gas pain Hypertrophy of prostate with urinary obstruction and other lower urinary tract symptoms (LUTS) Impaired fasting glucose 10/17/2015 Incisional hernia without mention of obstruction or gangrene 11/2007 Legal blindness, as defined in [place] Reflux esophagitis Thrombocytopenia ([facility]) 09/26/2014 Transient cerebral ischemia 12/09/2017 Unspecified constipation [...] 08/04/2012 subsequent PTCA and CHAD to RCA( [place]) LEFT HEART CATH,PERCUTANEOUS 05/11/2006 Cardiac cath, [...] (Left Tympanic) Re (more content not included)... [facility] 05-16-2023 History of Presen t illness Narrative [...] ATHEROSCLER UNSPEC VESSEL 03/25/2005 Coronary atherosclerosis of tetlin coronary artery CVA (cerebral vascular accident) ([facility]) 1999 DDD (degenerative disc disease), lumbar 07/18/2013 Dr. Gates, [facility]. Dr. Mondragon. Pain Management. [...] 08/04/2012 subsequent PTCA and CHAD to RCA( [facility]) LEFT HEART CATH,PERCUTANEOUS 05/11/2006 Cardiac cath, [...] immunization - ICD9: V03.89, ICD10: Z23 - [place] COVID-19 VACCINE ( [place]) AGE 12+ YR Prescription instructions reviewed with patient as applicable. Potential red flag symptoms discussed with the patient. Reviewed appropriate action plan to take if red flag symptoms occur. Patient agreeable to treatment plan. 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 Patient scheduled for 05/16/2023 for follow-up. Arely Mckenna LPN ----- Message from Sun Gan APRN.CNP sent at 05/11/2023 11:17 AM EDT ----- Urine culture positive, start antibiotics as soon as possible. Follow-up on Tuesday. Go to ER for any worsening symptoms Sun Gan APRN.CNP documented in this encounter [facility] 05-10-2023 Miscellaneous Notes notified of below results/recommendation, verbalized understanding. Arely Mckenna LPN ----- Message from Sun Gan APRN.PROSTHETIC TECHNICIAN sent at 05/10/2023 1:45 PM EDT ----- There were no acute findings on the CT scan of the brain to suggest stroke or other cause of symptoms. If urine testing is normal and symptoms don't improve recommend MRI of the brain Sun Gan APRN.PROSTHETIC TECHNICIAN documented in this encounter [facility] 05-10-2023 Note HNO ID: [id number] Author: Mary Moreno RT(R) Service: ? Author Type: Speech Teacher Type: Progress Notes Filed: 05/10/2023 2:14 PM [...] RT Horace(R) May 10, 2023 2:14 PM [facility] 05-10-2023 History of Presen t illness Narrative [...] 2023 2:14 PM documented in this encounter [facility] 05-10-2023 Miscellaneous Notes notified of below results, verbalized understanding. Arely Mckenna LPN ----- Message from Sun Gan APRN.CNP sent at 05/10/2023 8:08 AM EDT ----- Labs overall were stable, no acute findings. Chest x-ray was normal. 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 Author Type: Nurse Practitioner Type: [...] ATHEROSCLER UNSPEC VESSEL 03/25/2005 Coronary atherosclerosis of tetlin coronary artery CVA (cerebral vascular accident) ([facility]) 1999 DDD (degenerative disc disease), lumbar 07/18/2013 Dr. Gates, [facility]. Dr. Mondragon. Pain Management. [...] 08/04/2012 subsequent PTCA and CHAD to RCA( [facility]) LEFT HEART CATH,PERCUTANEOUS 05/11/2006 Cardiac cath, [...] Take by antony (more content not included)... [facility] 04-29-2023 Note HNO ID: [id number] Author: Dylon Lubin RN Service: ? Author [...] more often than normal? No Based on cheese grader, the following disposition is advised: No symptoms or symptoms present, not severe. Routed to: No Action Needed ELIA Education Provided this Outreach: No Dylon Lubin RN April 29, 2023 12:04 PM [facility] 04-29-2023 Note Patient Outreach (AM [facility]) DAMON SWAN ([id number]) 1940 M Date Time Provider Department 04/29/23 [place] [facility] [place] today, we recorded the [...] more often than normal? No Based on cheese grader, the following disposition is advised: No symptoms [...] Change Date Reviewed: 04/15/2023 Reviewed by: Suzan Villalpando MD - Fully Assessed Reason for Visit: [...] 10/17/2015 Obesity, Class (more content not included)... [facility] 04-29-2023 History of Presen t illness Narrative [...] more often than normal? No Based on cheese grader, the following disposition is advised: No symptoms or symptoms present, not severe. Routed to: No Action Needed ELIA Education Provided this Outreach: No Dylon Lubin, NIVIA April 29, 2023 12:04 PM documented in this encounter [facility] 04-15-2023 Note HNO ID: [id number] Author: Suzan Villalpando MD Service: ? Author Type: Physician Type: Progress Notes Filed: 04/15/2023 4:17 PM Note Text: . Respiratory [place] Note Patient name: Damon Swan PCP: Jose Wolfe MD CC: asthma COPD HPI: Damon Swan 82 year old obese male former [id number] smoker, quitting 1980 with PMH significant for [...] no major abnormalities Chest CT report from [facility] does not mention emphysema changes PAST MEDICAL HISTORY Diagnosis Date Abdominal pain, right upper quadrant Acute gastritis without mention of hemorrhage Acute, but ill-defined, cerebrovascular disease 02/2007 ASTHMA UNSPECIFIED 08/15/2006 Atrial fibrillation (HCC) 11/24/2009 Chest pain, unspecified CHRONIC AIRWAY OBSTRUCTION NEC 08/15/2006 CORONARY ATHEROSCLER UNSPEC VESSEL 03/25/2005 Coronary atherosclerosis of tetlin coronary artery CVA (cerebral vascular accident) ([facility]) 1999 DDD (degenerative disc disease), lumbar 07/18/2013 Dr. Gates, [facility]. Dr. Mondragon. Pain Management. [...] once daily. (Avril (more content not included)... [facility] 04-15-2023 Note HNO ID: [id number] Author: Ashley Russell RPFT Service: ? Author Type: Respiratory Therapist Type: Progress Notes Filed: 04/15/2023 10:17 AM Note Text: PULM FUNCTION SMARTBLOCK: Provider: Soha Akhtar APRN.PROSTHETIC TECHNICIAN Assisting Tech: Ashley Russell RPFT Spirometry: 1 DLCO: 1 [facility] 04-15-2023 History of Presen t illness Narrative Images from the original note were not included. . [facility] [place] Note Patient name: Damon Swan PCP: Jose Wolfe MD CC: asthma COPD HPI: Damon Swan 82 year old obese male former [id number] smoker, quitting 1980 with PMH significant for [...] no major abnormalities Chest CT report from [facility] does not mention emphysema changes PAST MEDICAL HISTORY Diagnosis Date Abdominal pain, right upper quadrant Acute gastritis without mention of hemorrhage Acute, but ill-defined, cerebrovascular disease 02/2007 ASTHMA UNSPECIFIED 08/15/2006 Atrial fibrillation (HCC) 11/24/2009 Chest pain, unspecified CHRONIC AIRWAY OBSTRUCTION NEC 08/15/2006 CORONARY ATHEROSCLER UNSPEC VESSEL 03/25/2005 Coronary atherosclerosis of tetlin coronary artery CVA (cerebral vascular accident) ([facility]) 1999 DDD (degenerative disc disease), lumbar 07/18/2013 Dr. Gates, [facility]. Dr. Mondragon. Pain Management. [...] 08/04/2012 subsequent PTCA and CHAD to RCA( [facility]) LEFT HEART CATH,PERCUTANEOUS 05/11/2006 Cardiac cath, [...] his Breo Ellipta Former cigarette smoker -Former 86-ssdy-rgtk smoker having quit in 1980 without sequelae of COPD -Patient does not meet criteria for lung cancer screening based on his age and duration of smoking cessation Suzan Villalpando MD [facility] [place] documented in this encounter [facility] 04-15-2023 Nurse Note Intake information documented in the prior visit with BERNA Parra today. documented in this encounter [facility] 04-15-2023 History of Presen t illness Narrative PULM FUNCTION SMARTBLOCK: Provider: Soha Akhtar APRN.PROSTHETIC TECHNICIAN Assisting Tech: Ashley Russell RPFT Spirometry: 1 DLCO: 1 documented in this encounter [facility] 04-12-2023 Miscellaneous Notes Patient given results and verbalized understanding of instructions given. Dede Marie ----- Message from Aleah Lawson APRN.PROSTHETIC TECHNICIAN sent at 04/12/2023 7:23 AM EDT ----- Please advise patient the COVID test was negative. documented in this encounter [facility] 04-11-2023 Note HNO ID: [id number] Author: Kayla Fermin RT(R) Service: Radiology Author [...] Fermin, RT(R) April 11, 2023 11:14 AM [facility] 04-11-2023 Note HNO ID: [id number] Author: Barrera Sykes MD Service: ? Author [...] ATHEROSCLER UNSPEC VESSEL 03/25/2005 Coronary atherosclerosis of tetlin coronary artery CVA (cerebral vascular accident) ([facility]) 1999 DDD (degenerative disc disease), lumbar 07/18/2013 Dr. Gates, [facility]. Dr. Mondragon. Pain Management. [...] Follow up if presists. Barrera Sykes MD [facility] 04-06-2023 Note HNO ID: [id number] Author: Dylon Lubin RN Service: ? Author [...] Instructed and encouraged Pt to schedule PCP/ PROSTHETIC TECHNICIAN Appt or Urgent Care for symptom or condition changes. Pt noted he has an 04/15/[address] Villalpando Pulmonology Contacted for: Routine Telephonic Outreach Contact made with patient: Yes Patient identified by name and date of . Discussed care with patient Are you experiencing any new or worsening symptoms you need to talk about today? Yes Based on cheese grader, the following disposition is advised: No symptoms or symptoms present, not severe. Routed to: No Action Needed ELIA Education Provided this Outreach: No Dylon Lubin RN April 06, 2023 5:24 PM [facility] 04-06-2023 History of Presen t illness Narrative [facility] Telephonic Outreach Provider Action/FYI: Routed updates to Dr. Aiden Ku with Pt, he noted has a cold, Pt reports mild Sob with exertion, intermittent productive cough with clear to colored sputum, denies wheezes, denies fever or chill or other symptoms.. Instructed and encouraged Pt to schedule PCP/ PROSTHETIC TECHNICIAN Appt or Urgent Care for symptom or condition changes. Pt noted he has an 04/15/[address] Villalpando Pulmonology Contacted for: Routine Telephonic Outreach Contact made with patient: Yes Patient identified by name and date of . Discussed care with patient Are you experiencing any new or worsening symptoms you need to talk about today? Yes Based on cheese grader, the following disposition is advised: No symptoms [...] 2023 2:09 PM documented in this encounter [facility] 04-05-2023 Note HNO ID: [id number] Author: Dylon Lubin RN Service: ? Author Type: Registered Nurse Type: Progress Notes Filed: 04/06/2023 5:43 PM Note Text: CDM Telephonic Outreach Provider Action/FYI CDM: COPD Left a message to verify symptom status, Instructed to contact PCP for condition changes and needs. Contacted for: Routine Telephonic Outreach Contact made with patient: No, left message. Dylon Lubin RN April 05, 2023 2:09 PM [facility] 04-05-2023 Note Patient Outreach (AM [facility]) DAMON SWAN ([id number]) 1940 M Date Time Provider Department 04/05/23 [facility] your visit today, we recorded the [...] Instructed and encouraged Pt to schedule PCP/ PROSTHETIC TECHNICIAN Appt or Urgent Care for symptom or condition changes. Pt noted he has an 04/15/[address] Villalpando Pulmonology Contacted for: Routine Telephonic Outreach Contact made with patient: Yes Patient identified by name and date of . Discussed care with patient Are you experiencing any new or worsening symptoms you need to talk about today? Yes Based on cheese grader, the following disposition is advised: No symptoms [...] Thrombocytopenia (HCC) [D69.6] (more content not included)... [facility] 03-07-2023 Note HNO ID: [id number] Author: Dylon Lubin RN Service: ? Author [...] more often than normal? No Based on cheese grader, the following disposition is advised: No symptoms or symptoms present, not severe. Routed to: No Action Needed ELIA Education Provided this Outreach: No Dylon Lubin RN March 07, 2023 4:33 PM [facility] 03-07-2023 History of Presen t illness Narrative [...] more often than normal? No Based on cheese grader, the following disposition is advised: No symptoms or symptoms present, not severe. Routed to: No Action Needed ELIA Education Provided this Outreach: No Dylon Lubin RN March 07, 2023 4:33 PM documented in this encounter [facility] 03-07-2023 Note Patient Outreach (AM [facility]) DAMON SWAN ([id number]) 1940 M Date Time Provider Department 03/07/23 [...] more often than normal? No Based on cheese grader, the following disposition is advised: No symptoms [...] Impaired fasting g (more content not included)... [facility] 02-03-2023 Note HNO ID: [id number] Author: Dylon Lubin RN Service: ? Author Type: Registered Nurse Type: Progress Notes Filed: 02/03/2023 2:25 PM Note Text: CDM Telephonic Outreach Provider Action/FYI CDM: COPD 2nd Call, left a message, Instructed to call PCP with any symptom or condition changes. Contacted for: Routine Telephonic Outreach Contact made with patient: No, left message. Dylon Lubin RN February 03, 2023 2:23 PM [facility] 02-01-2023 Note HNO ID: [id number] Author: Dylon Lubin RN Service: ? Author Type: Registered Nurse Type: Progress Notes Filed: 02/03/2023 2:25 PM Note Text: CDM Telephonic Outreach Provider Action/FYI CDM: COPD Left a message, Instructed to call PCP with any symptom or condition changes. Contacted for: Routine Telephonic Outreach Contact made with patient: No, left message. Dylon Lubin RN February 01, 2023 3:33 PM [facility] 02-01-2023 Note Patient Outreach (AM [facility]) DAMON SWAN ([id number]) 1940 M Date Time Provider Department 02/01/23 [place] [facility] [place] visit today, we recorded the [...] Occlusion and st (more content not included)... [facility] 01-10-2023 Note HNO ID: [id number] Author: Jose Wolfe MD Service: ? Author [...] discussed. Avoid alcohol consumption. Jose Wolfe MD [facility] 01-10-2023 History of Presen t illness Narrative This note was created using Its Time [employer]ian[employer]. Subjective Damon Swan is a 82 year [...] Jose Wolfe MD documented in this encounter [facility] 12-30-2022 Note HNO ID: [id number] Author: Dylon Lubin RN Service: ? Author [...] more often than normal? No Based on cheese grader, the following disposition is advised: No symptoms or symptoms present, not severe. Routed to: No Action Needed ELIA Education Provided this Outreach: No Dylon Lubin RN December 30, 2022 8:05 PM [facility] 12-30-2022 History of Presen t illness Narrative [...] more often than normal? No Based on cheese grader, the following disposition is advised: No symptoms [...] Lubin RN December 29, 2022 3:45 PM documented in this encounter [facility] 12-29-2022 Note HNO ID: [id number] Author: Dylon Lubin RN Service: ? Author [...] Lubin RN December 29, 2022 3:45 PM [facility] 12-29-2022 Note Patient Outreach (AM [facility]) DAMON SWAN ([id number]) 1940 M Date Time Provider Department 12/29/22 [...] Lubin RN December 29, 2022 3:45 PM Dylon [...] more often than normal? No Based on cheese grader, the following disposition is advised: No symptoms [...] Date Reviewed: 11/22/2022 Reviewed by: Sun Gan APRN.PROSTHETIC TECHNICIAN - Fully Assessed Reason for Visit: Community [...] [L81.4] 02/13/2014 04/02/2017 (more content not included)... [facility] 12-06-2022 Note HNO ID: [id number] Author: Dylon Lubin RN Service: ? Author Type: Registered Nurse Type: Progress Notes Filed: 12/06/2022 5:23 PM Note Text: CDM Telephonic Outreach Provider Action/FYI: Routed updates to Dr. Wolfe CDM: COPD Spk with Marilee she noted Damon has sciatic type nerve pain in his leg, he is seeing a Chiropractor this week, instructed to schedule with PCP/ PROSTHETIC TECHNICIAN for pain, Ica noted if the treatment does not help, he will schedule an appt with PCP . Denies other symptom concerns or needs. Contacted for: Routine Telephonic Outreach Contact made with patient: Yes Patient identified by name and date of . Discussed care with spouse Are you experiencing any new or worsening symptoms you need to talk about today? Yes Based on cheese grader, the following disposition is advised: No symptoms or symptoms present, not severe. Routed to: No Action Needed ELIA Education Provided this Outreach: No Dylon Lubin RN December 06, 2022 5:20 PM [facility] 12-03-2022 Note HNO ID: [id number] Author: Dylon Lubin RN Service: ? Author [...] Lubin RN December 03, 2022 1:51 PM [facility] 12-03-2022 Note Patient Outreach (AM [facility]) DAMON SWAN ([id number]) 1940 M Date Time Provider Department 12/03/22 [...] this week, instructed to schedule with PCP/ PROSTHETIC TECHNICIAN for pain, Ica noted if the treatment does not help, he will schedule an appt with PCP . Denies other symptom concerns or needs. Contacted for: Routine Telephonic Outreach Contact made with patient: Yes Patient identified by name and date of . Discussed care with spouse Are you experiencing any new or worsening symptoms you need to talk about today? Yes Based on cheese grader, the following disposition is advised: No symptoms [...] Date Reviewed: 11/22/2022 Reviewed by: Sun Gan APRN.PROSTHETIC TECHNICIAN - Fully Assessed Reason for Visit: Community [...] disease), lumbar [M51.36] (more content not included)... [facility] 11-22-2022 Note HNO ID: [id number] Author: Sun Gan APRN.CNP Service: ? Author Type: Nurse Practitioner Type: Progress Notes Filed: 11/22/2022 12:09 PM Note Text: Damon Swan is a 82 year old male here for a Medicare Subsequent Annual Wellness Visit Health Risk Assessment In general, health is: Good Concerns with balance:Several days Concerns with teeth or dentures:Not at all Concerns with sexual function:Not at all Adolphus anxious, stressed, angry, irritable, lonely, isolated, or [...] - General (Internal Medicine) Outside specialists seen: professor of environmental studies- Dr. Jasso Stabilizing Machine Operator- RCIHARD Ivan, towboat captain- Dr. 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 As you get older, the way [...] certain medical conditions. documented in this encounter [facility] 11-22-2022 History of Presen t illness Narrative Damon Swan is a 82 year old male here for a Medicare Subsequent Annual Wellness Visit Health Risk Assessment In general, health is: Good Concerns with balance:Several days Concerns with teeth or dentures:Not at all Concerns with sexual function:Not at all Adolphus anxious, stressed, angry, irritable, lonely, isolated, or [...] - General (Internal Medicine) Outside specialists seen: professor of environmental studies- Dr. Jasso Stabilizing Machine Operator- RICHARD Ivan, towboat captain- Dr. Lazaro Medical/Family history review Reviewed and [...] drinks per day - Patient was counseled qfke-yr-[id number] by myself (the billing provider) for the [...] Sun Gan APRN.CNP documented in this encounter [facility] 11-12-2022 Note HNO ID: [id number] Author: Dylon Lubin RN Service: ? Author [...] more often than normal? No Based on cheese grader, the following disposition is advised: N/A Routed to: No Action Needed ELIA Education Provided this Outreach: No Dylon Lubin RN November 12, 2022 1:00 PM [facility] 11-12-2022 Note Patient Outreach ([facility]) DAMON SWAN ([id number]) 1940 M Date Time Provider Department 11/12/22 [...] more often than normal? No Based on cheese grader, the following disposition is advised: N/A Routed [...] Date Reviewed: 10/15/2022 Reviewed by: Soha Akhtar APRN.PROSTHETIC TECHNICIAN - Fully Assessed Reason for Visit: Community [...] 10/03/2014 Insomnia [G4 (more content not included)... [facility] 11-12-2022 History of Presen t illness Narrative [...] more often than normal? No Based on cheese grader, the following disposition is advised: N/A Routed to: No Action Needed ELIA Education Provided this Outreach: No Dylon Lubin RN November 12, 2022 1:00 PM documented in this encounter [facility] 11-04-2022 Miscellaneous Notes patient notified and verbalized [...] diagnosis. Please advise documented in this encounter [facility] 10-20-2022 Note HNO ID: [id number] Author: Dylon Lubin RN Service: ? Author [...] like to speak with a social work executive team leader to help give you support for any [...] you up for automated weekly questionnaires through My[employer]. This is an easy way for us [...] Lubin RN October 20, 2022 3:29 PM [facility] 10-20-2022 History of Presen t illness Narrative [...] like to speak with a social work executive team leader to help give you support for any [...] you up for automated weekly questionnaires through My[employer]. This is an easy way for us [...] 2022 3:29 PM documented in this encounter [facility] 10-20-2022 Note Patient Outreach ([facility]) SIMIGULSHANDAMON ([id number]) 1940 M Date Time Provider Department 10/20/22 [...] like to speak with a social work executive team leader to help give you support for any [...] you up for automated weekly questionnaires through My[employer]. This is an easy way for us [...] Date Reviewed: 10/15/2022 Reviewed by: Soha Akhtar APRN.PROSTHETIC TECHNICIAN - Fully Assessed Reason for Visit: Community [...] Problem List As (more content not included)... [facility] documented as of this encounter (statuses as of 06/29/2023) [facility]03-31-2023 History of Past illness Narrative* Problem Noted Date Diagnosed Date Resolved Date Syncope 10/15/2022 06/28/2023 Acute upper GI bleed 07/28/2022 023 Transient cerebral ischemia 12/09/2017 04/04/2018 Orthostatic dizziness 04/02/20172017 Thrombocytopenia 09/26/2014 05/25/2023 Irritated//Inflamed Seborrheic Keratosis 02/13/2014 10/03/2014 Pigmented Lentiginous Neopla sm Uncertain Behavior(NUB): R/O Lentigo Maligna at right faith//cheek face 02/13/2014 04/02/2017 Solar lentigo 02/13/2014 04/02/2017 [...] 06/07/2006 10/08/2010 Chest pain, unspecified 09/16 Overview: [facility] adm 03/17-03/18/10- Nuclear stress test no ischemia or ST changes, EF 70%. 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 Active CP in office 04/2010- to [facility] ED for eval- abn EKG, t-wave inversion documented as of this encounter (statuses as of 07/02/2023) [facility] History of Past illness Narrative* Problem Noted Date Diagnosed Date Resolved Date Syncope 10/15/2022 06/28/2023 Acute upper GI bleed 07/28/2022 023 Transient cerebral ischemia 12/09/2017 04/04/2018 Orthostatic dizziness 04/02/20172017 Thrombocytopenia 09/26/2014 05/25/2023 Irritated//Inflamed Seborrheic Keratosis 02/13/2014 10/03/2014 Pigmented Lentiginous Neopla sm Uncertain Behavior(NUB): R/O Lentigo Maligna at right faith//cheek face 02/13/2014 04/02/2017 Solar lentigo 02/13/2014 04/02/2017 [...] 06/07/2006 10/08/2010 Chest pain, unspecified 09/16 Overview: [facility] adm 03/17-03/18/10- Nuclear stress test no ischemia or ST changes, EF 70%. 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 Active CP in office 04/2010- to [facility] ED for eval- abn EKG, t-wave inversion documented as of this encounter (statuses as of 07/17/2023) [facility] History of Past illness Narrative* Problem Noted Date Diagnosed Date Resolved Date Syncope 10/15/2022 06/28/2023 Acute upper GI bleed 07/28/2022 023 Transient cerebral ischemia 12/09/2017 04/04/2018 Orthostatic dizziness 04/02/20172017 Thrombocytopenia 09/26/2014 05/25/2023 Irritated//Inflamed Seborrheic Keratosis 02/13/2014 10/03/2014 Pigmented Lentiginous Neopla sm Uncertain Behavior(NUB): R/O Lentigo Maligna at right faith//cheek face 02/13/2014 04/02/2017 Solar lentigo 02/13/2014 04/02/2017 [...] Overview: Colonoscopy - 15 May 2008 per [place] OVERWEIGHT 08/15/2006 03/10/2022 Cough 06/07/2006 10/08/2010 Chest pain, unspecified 09/16 Overview: [facility] adm 03/17-03/18/10- Nuclear stress test no ischemia or ST changes, EF 70%. 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 Active CP in office 04/2010- to [facility] ED for eval- abn EKG, t-wave inversion documented as of this encounter (statuses as of 08/19/2023) [facility] History of Past illness Narrative* Problem Noted Date Diagnosed Date Resolved Date Syncope 10/15/2022 06/28/2023 Acute upper GI bleed 07/28/2022 023 Transient cerebral ischemia 12/09/2017 04/04/2018 Orthostatic dizziness 04/02/20172017 Thrombocytopenia 09/26/2014 05/25/2023 Irritated//Inflamed Seborrheic Keratosis 02/13/2014 10/03/2014 Pigmented Lentiginous Neopla sm Uncertain Behavior(NUB): R/O Lentigo Maligna at right faith//cheek face 02/13/2014 04/02/2017 Solar lentigo 02/13/2014 04/02/2017 [...] EF 70%. 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 Active CP in office 04/2010- to [facility] ED for eval- abn EKG, t-wave inversion documented as of this encounter (statuses as of 09/20/2023) [facility] History of Past illness Narrative* Problem Noted Date Diagnosed Date Resolved Date Syncope 10/15/2022 06/28/2023 Acute upper GI bleed 07/28/2022 023 Transient cerebral ischemia 12/09/2017 04/04/2018 Orthostatic dizziness 04/02/20172017 Thrombocytopenia 09/26/2014 05/25/2023 Irritated//Inflamed Seborrheic Keratosis 02/13/2014 10/03/2014 Pigmented Lentiginous Neopla sm Uncertain Behavior(NUB): R/O Lentigo Maligna at right faith//cheek face 02/13/2014 04/02/2017 Solar lentigo 02/13/2014 04/02/2017 [...] Overview: Colonoscopy - 15 May 2008 per [place] OVERWEIGHT 08/15/2006 03/10/2022 Cough 06/07/2006 10/08/2010 Chest pain, unspecified 09/16 Overview: [facility] adm 03/17-03/18/10- Nuclear stress test no ischemia or ST changes, EF 70%. 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 Author Type: Speech Teacher Type: Progress Notes Filed: 10/15/2022 11:35 AM [...] BY: RT Jl(R) October 15, 2022 11:26 [facility]03-31-2023 NoteHNO ID: [id number] Author: Yamilex Hsieh PA-C Service: ? Author Type: Physician Shuttle Truck Driver Type: Progress Notes Filed: 10/15/2022 12:56 PM [...] ATHEROSCLER UNSPEC VESSEL 03/25/2005 Coronary atherosclerosis of tetlin coronary artery CVA (cerebral vascular accident) (HCC) 1999 DDD (degenerative disc disease), lumbar 07/18/2013 Dr. Gates, [facility]. Dr. Mondragon. Pain Management. [...] W/O BRSH SPEC VARIC (more content not included)...[facility] 10-15-2022 Miscellaneous Notes* Result Encounter Note - Yamilex Hsieh PA-C - 10/15/2022 11:30 AM EDT Please call Damon to alert him that his CXR is normal. Pleural effusions resolved. documented in [facility] encounterC[facility] History of Present illness Narrative* Yamilex Hsieh [...] ATHEROSCLER UNSPEC VESSEL 03/25/2005 Coronary atherosclerosis of tetlin coronary artery CVA (cerebral vascular accident) ([facility]) 1999 DDD (degenerative disc disease), lumbar 07/18/2013 Dr. Gates, [facility]. Dr. Mondragon. Pain Management. [...] as defined in [place] Reflux esophagitis Thrombocytopenia ([facility]) 09/26/2014 Transient cerebral ischemia 12/09/2017 Unspecified constipation [...] 08/04/2012 subsequent PTCA and CHAD to RCA( [facility]) LEFT HEART CATH,PERCUTANEOUS 05/11/2006 Cardiac cath, [...] FEF75 (L/sec) 0.41 0.13 1.17 0.29 72 [id number] (L/sec) 1.72 0.64 3.33 1.04 60 PEF [...] - Follow up with cardiology in November [facility] in [address] Villalpando and pulmonary function testing This was a shared visit with myself and Susanna Hsieh PA-C. All questions were addressed with the patient and his . CHRIS Jaramillo PA-C documented in [facility] encounterC[facility] Instructions* Patient Instructions* Soha Akhtar APRN.PROSTHETIC TECHNICIAN - 10/15/2022 10:45 AM EDT Take a [...] taking care of you! documented in this encounterC[facility] Miscellaneous Notes* Telephone Encounter - Ingrid Prince Pss - 10/01/2022 2:22 PM EDT Spoke to patient who has been scheduled for with Yamilex Hsieh. Patient voiced understanding. * Telephone Encounter - Renée Chavira APRN.PROSTHETIC TECHNICIAN - 10/01/2022 1:09 PM EDT Patient given [...] first. CAPRICE 09/17/21. Please review and advise. Nroma Guerrero RN documented in this encounterCleveland [facility]03-[facility]-2023 NoteHNO ID: [id number] Author: Dylon Lubin, NIVIA Service: ? Author [...] like to speak with a social work executive team leader to help give you support for any [...] you up for automated weekly questionnaires through My[employer]. This is an easy way for us [...] Dylon Lubin RN September 23, 2022 6:56 [facility]03-09-2023 NotePatient Outreach ([facility]) DAMON SWAN ([id number]) 1940 Date Time Provider Department 09/23/22 [facility] LUBIN [facility] During your visit today, we recorded the [...] like to speak with a social work executive team leader to help give you support for any [...] you up for automated weekly questionnaires through My[employer]. This is an easy way for us [...] wi*08/15/2006 MIXED HYPERLIPIDEMIA [E78 (more content not included)...[facility]03-07-2023 History of Present illness Narrative* Dylon Lubin RN - 09/21/2022 4:36 PM EST [facility] TELEPHONIC OUTREACH Provider Action/FYI: CDM: COPD Left a message to verify symptom status, instructed to call PCP with any changes in condition or needs. Contact made with patient: No - Left message Charlee my name is Dylon Lubin RN your Client Services Account Manager from the [facility] I am callingtoday for your bi-weekly check [...] RN - 09/17/2022 3:04 PM EST INSIGHT [facility] TELEPHONIC OUTREACH Provider Action/FYI: CDM: COPD Left a message to verify symptom status, instructed to call PCP with any changes in condition or needs. Contact made with patient: No - Left message Charlee my name is Dylon Lubin RN your Client Services Account Manager from the [facility] I am callingtoday for your bi-weekly check in. I am sorry I missed your call. I will reach out to you again tomorrow. (if the third call I will reach out to you again next week) Enter next patient outreach date for the following business day using the Track Pt Outreach. End outreach. Dylon Lubin RN September 17, 2022 3:04 PM documented in this encounterC[facility] Miscellaneous Notes* Telephone Encounter - Arely Mkcenna LPN - 08/31/2022 3:39 PM EST Patient [...] Arely Mckenna LPN * Telephone Encounter - [facility] - 08/31/2022 3:28 PM EST Patient has been identified by name and date of : Yes Requested Prescriptions Pending Prescriptions Disp Refills pantoprazole DR (PROTONIX) 40 mg tablet 30 tablet 0 Sig: Take 1 tablet by mouth twice daily. RX INSTRUCTIONS: Patient aware RX will be sent to pharmacy. No need to notify patient. [facility] documented in this encounterC[facility] Miscellaneous Notes* Telephone Encounter - Georgina Snell [...] Anemia improving. Continue care. documented in this encounterC[facility] History of Present illness Narrative* Dylon Lubin, [...] Ablation, 08/10/22 H/H 11.3/36.[address] Pramod DUNACN Pt had an episode of dizziness, current BP 120/64, Instructed on fall prevention, and importance offollow up Appt with PCP/ PROSTHETIC TECHNICIAN for symptom/ condition changes. Pt verbalized understanding. [...] like to speak with a social work executive team leader to help give you support for any [...] you up for automated weekly questionnaires through MyShape. This is an easy way for us [...] 26, 2022 3:10 PM documented in this encounterC[facility]01-[facility]-2023 NoteHNO ID: [id number] Author: Christina Diallo PT Service: ? Author Type: Physical Therapist Type: Progress Notes Filed: 08/09/2022 3:25 PM Note Text: 08/09/2022 [facility] PHYSICAL THERAPY DISCONTINUANCE [...] or scheduled additional follow-up appointments. Christina Diallo [facility]01-11-2023 History of Present illness Narrative* Jose Wolfe MD - 07/28/2022 12:02 PM EST This note was created using NoteWriter. Subjective Damon Swan is a 82 year old male was here with spouse. He became very weak, dyspneic, with what sounded like amaurosis fugax. He was admitted 07/12-07/14 at [facility] for profound anemia from GI blood [...] 08/04/12 subsequent PTCA and CHAD to RCA( [facility]) LEFT HEART CATH,PERCUTANEOUS 05/11/2006 Cardiac cath, [...] ongoing. Jose Wolfe MD documented in this encounterC[facility]01[facility]23 Miscellaneous Notes* Telephone Encounter - Jose Wolfe MD - 07/28/2022 7:04 AM EST Noted. * Telephone Encounter - Maria L Davis LPN - 07/27/2022 2:48 PM EST Magui from [facility] Home [facility] calling with change in PT plan of care. Patient had missed 2 visits last week so adding a week, 2 visits weekly for this week and next week. documented in this encounterC[facility]01[facility] History of Present illness Narrative* Dylon Lubin RN - 07/23/2022 3:54 PM EST INSIGHT [facility] TELEPHONIC OUTREACH Provider Action/FYI: Routed updates to Dr. Aiden Ku with Pt he reports Admitted to [facility] 07/12/22 for Anemia, GI Bleed, Pt [...] like to speak with a social work executive team leader to help give you support for any [...] you up for automated weekly questionnaires through MyShape. This is an easy way for us [...] in the Track PtOutreach and End outreach. Dyoln Lubin RN July 23, 2022 3:54 PM documented in this encounterCleveland Clinic [facility]12-30-2022 Miscellaneous Notes* Telephone Encounter - Alessandra Chao RN - 07/16/2022 3:54 PM EST Magui from [facility] called and is notified of providers message. She voices understanding. Alessandra Chao RN * Telephone Encounter - Jose Wolfe MD - 07/16/2022 3:15 PM EST Okay. * Telephone Encounter - Maria L Davis LPN - 07/15/2022 1:43 PM EST Magui from [facility] calling with PT plan of care, 1 visit weekly for 1 week, then 2 visits weekly for 2 weeks working on lower extremity strengthening, endurance, functional mobility trainingand balance. documented in this encounterCleveland Clinic [facility]12-28-2022 Miscellaneous Notes* Telephone Encounter - Coreen Escoto LPN - 07/14/2022 2:41 PM EST Patient notified and voiced his understanding. * Telephone Encounter - Jose Wolfe MD - 07/14/2022 2:18 PM EST ASSESSMENT/PLAN: 1. Gastrointestinal hemorrhage, unspecified gastrointestinal hemorrhage type - ICD9: 578.9, ICD10: K92.2 - CBC next week. Jose Wolfe MD * Telephone Encounter - BRICE Hamilton - 07/14/2022 12:39 PM EST [facility] reached out to make a hospital follow up for patient, and he needs a CBC recheck for next week.Patient was in hospital from 07/12-07/14 for a GI Bleed and anemia. Please follow up with patient once order is placed for CBC. BRICE Hamilton July 14, 2022 12:40 PM documented in this encounterCleveland Clinic [facility]12-07-2022 Miscellaneous Notes* Telephone Encounter - Sunita Dunn LPN - 06/23/2022 8:53 AM EST Spoke with pt and information listed below given. Pt verbalizes understanding. Transferred to streaming media specialist to get Wellness apt booked. Sunita Dunn [...] LPN * Telephone Encounter - Jessica Bearden [facility] - 06/21/2022 3:38 PM EST Patient has been identified by name and date of : Yes Requested Prescriptions Pending Prescriptions Disp Refills pantoprazole DR (PROTONIX) 40 mg tablet 90 tablet 3 Sig: Take 1 tablet by mouth once daily. Discontinue ranitidine, omeprazole RX INSTRUCTIONS: Patient aware RX will be sent to pharmacy. No need to notify patient. Jessica Bearden [facility] Electronically signed by Jessica [facility] at 06/21/2022 3:41 PM EST documented in this encounterCleveland Clinic [facility]12-06-2022 History of Present illness Narrative* Dylon Lubin [...] like to speak with a social work executive team leader to help give you support for any [...] you up for automated weekly questionnaires through MyShape. This is an easy way for us [...] 22, 2022 1:26 PM documented in this encounterCleveland Clinic [facility]11-08-2022 Miscellaneous Notes* Telephone Encounter - Dede Marie - 05/25/2022 8:09 AM EST Patient given results and verbalized understanding of instructions given. Dede Marie * Telephone Encounter - Cara Adan APRN.CNP - 05/25/2022 7:46 AM EST Negative for flu and COVID please notify thank you documented in this encounterCleveland Clinic [facility]11-07-2022 History of Present illness Narrative* Rin Dixon [...] ATHEROSCLER UNSPEC VESSEL 03/25/2005 Coronary atherosclerosis of tetlin coronary artery CVA (cerebral vascular accident) (HCC) 1999 DDD (degenerative disc disease), lumbar 07/18/2013 Dr. Gates, [facility]. Dr. Mondragon. Pain Management. [...] anterolateral leads Reviewed with Patient's cardiology office, SERVER SECURITY ADMINISTRATOR, slight change form previous ECG- Advised that they will assume care and order stat troponins, patient to have completed today after our OV. Patient is asymptomatic other than slight cough. No chest pain, SOB, dizziness. will drive him to lab at [facility] Reviewed red flags and when to [...] plan. Rin Dixon PA-C documented in this encounterCleveland Clinic [facility]11-04-2022 History of Present illness Narrative* Tristian Monique RN - 05/21/2022 2:36 PM EDT [facility] TELEPHONIC OUTREACH Provider Action/FYI: Call to Pt left a message to verify COPD symptom status and needs. Contact made with patient: No - Left message Hello my name is Dylon Lubin RN your Client Services Account Manager from the [facility] I am callingtoday for your bi-weekly check [...] 21, 2022 2:36 PM documented in this encounterCleveland Clinic [facility]10-27-2022 History of Present illness Narrative* Christina Diallo, [...] 40 Christina Diallo PT documented in this encounterCleveland Clinic [facility]10-18-2022 History of Present illness Narrative* Nolan Carney, STREET COMMISSIONER - 05/04/2022 1:35 PM EDT Episode Visit [...] 45 Nolan Carney PTA documented in this encounterCleveland Clinic [facility]10-17-2022 History of Present illness Narrative* Tristian Monique RN - 05/03/2022 10:07 AM EDT INSIGHT [facility] TELEPHONIC OUTREACH Provider Action/FYI: Call from Pt [...] like to speak with a social work executive team leader to help give you support for any [...] you up for automated weekly questionnaires through MyShape. This is an easy way for us [...] PtOutreach and End outreach. Dylon Lubin RN May 03, 2022 10:07 AM [...] 03, 2022 9:50 AM documented in this encounterCleveland Clinic [facility]10-12-2022 History of Present illness Narrative* Yamilex Fonseca, [...] of Care: created on 04/28/22 through 06/23/22 [place] in home exercise program. Patient will increase [...] Planned: 16 Planned Treatment Interventions: Therapeutic exercise (90248);Neuromuscular re- education (22512);Manual therapy (76619);Therapeutic activities (44941);Self- mcfp management (55953);Gait Training (63883);Patient/Family/Caregiver Education;Body Mechanics Training;Orthosis / DME PLAN FOR [...] be fitted by specialty shoe store in [place] that accommodates his insoles. Recommendation for New [...] 58 Yamilex Fonseca PT documented in this encounterC[facility] History of Present illness Narrative* Tristian Monique [...] like to speak with a social work executive team leader to help give you support for any [...] you up for automated weekly questionnaires through [employer]. This is an easy way for us [...] 08, 2022 3:46 PM documented in this encounterC[facility]08-05-2022 History of Present illness Narrative* Tristian Monique [...] like to speak with a social work executive team leader to help give you support for any [...] you up for automated weekly questionnaires through [employer]. This is an easy way for us [...] 19, 2022 2:07 PM documented in this encounterCleveland [facility]07-21-2022 Miscellaneous Notes* Telephone Encounter - Arely Mckenna LPN - 02/04/2022 2:45 PM EDT Patient notified of below recommendation, verbalized understanding. 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 He can stop the tamsulosin from us [...] Please call and advise. documented in this encounterCleveland Clinic [facility]07-21-2022 History of Present illness Narrative* Tristian Monique RN - 02/04/2022 11:05 AM EDT [facility] TELEPHONIC OUTREACH Provider Action/FYI: Call to Pt left a message to verify COPD or other symptom status and needs. Contact made with patient: No - Left message Charlee my name is Dylon Lubin RN your Client Services Account Manager from the [facility] I am callingtoday for your bi-weekly check [...] 04, 2022 11:05 AM documented in this encounterC[facility]07-01-2022 History of Present illness Narrative* Tristian Monique RN - 01/15/2022 12:43 PM EDT [facility] TELEPHONIC OUTREACH Provider Action/FYI: Call to Pt left a message to verify COPD or other symptom status and needs. Contact made with patient: No - Left message Hello my name is Dylon Lubin RN your Client Services Account Manager [facility] the [facility] I am callingtoday for your bi-weekly check [...] 15, 2022 12:43 PM documented in this encounterCleveland [facility]06-16-2022 History of Present illness Narrative* Tristian Monique RN - 12/31/2021 12:22 PM EDT [facility] TELEPHONIC OUTREACH Provider Action/FYI: Spk with Pt [...] like to speak with a social work executive team leader to help give you support for any [...] you up for automated weekly questionnaires through [employer]. This is an easy way for us [...] my name is Dylon Lubin RN your Client Services Account Manager [facility] the [facility] I am callingtoday for your bi-weekly check [...] 30, 2021 2:45 PM documented in this encounterC[facility] Clinic [facility]05-31-2022 History of Present illness Narrative* Tristian Monique [...] like to speak with a social work executive team leader to help give you support for any [...] you up for automated weekly questionnaires through [employer]. This is an easy way for us [...] 15, 2021 10:54 AM documented in this encounterC[facility]05-12-2022 History of Present illness Narrative* Tristian Monique [...] 26, 2021 9:46 AM documented in this encounterCleveland Clinic [facility]05-05-2022 Miscellaneous Notes* Telephone Encounter - Krista Jett - 11/19/2021 11:54 AM EDT Pharmacy faxed requesting the following refill. Pending Prescriptions Disp Refills BREO ELLIPTA 100 MCG-25 MCG/DOSE POWDER FOR INHALATION 3 Sig: USE 1 INHALATION ORALLY ONCE DAILY INSTRUCTED WILIAM: Yes Patient last appointment: 09/17/2021 In [place] with Maryam GUTIERREZ Patient Phone numbers: [phone] (home) Request is for script(s) to be escript to pharmacy. Krista Jett documented in this encounterCleveland Clinic [facility]04-27-2022 History of Present illness Narrative* Tristian Monique [...] like to speak with a social work executive team leader to help give you support for any [...] you up for automated weekly questionnaires through [employer]. This is an easy way for us [...] 11, 2021 9:41 AM documented in this encounterCleveland Clinic [facility]04-12-2022 Miscellaneous Notes* Telephone Encounter - Arely Mckenna [...] notify patient. Celsa Alex documented in this encounterCleveland Clinic [facility]04-12-2022 History of Present illness Narrative* Tristian Monique [...] like to speak with a social work executive team leader to help give you support for any [...] you up for automated weekly questionnaires through [employer]. This is an easy way for us [...] 27, 2021 10:57 AM documented in this encounterCleveland Clinic [facility]05-25-2018 History of Past illness Narrative* Problem Noted Date Resolved Date Transient cerebral ischemia 12/09/201703/18 Orthostatic dizziness 04/02/2017 09/28/2017 Irritated//Inflamed Seborrheic Keratosis 014 10/03/2014 Pigmented Lentiginous Neopla sm Uncertain Behavior(NUB): R/O Lentigo Maligna at right faith//cheek face 02/13/2014 04/02/2017 Solar lentigo 02/13/2014 04/02/2017 [...] 10/08/2010 Chest pain, unspecified 10/09/19 11 Overview: [facility] adm 03/17-03/18/10- Nuclear stress test no ischemia or ST changes, EF 70%. 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 Active CP in office 04/2010- to [facility] ED for eval- abn EKG, t-wave inversion documented as of this encounter (statuses as of 10/27/2021) [facility] History of Past illness Narrative* Problem Noted Date Resolved Date Transient cerebral ischemia 12/09/201703/18 Orthostatic dizziness 04/02/2017 09/28/2017 Irritated//Inflamed Seborrheic Keratosis 014 10/03/2014 Pigmented Lentiginous Neopla sm Uncertain Behavior(NUB): R/O Lentigo Maligna at right faith//cheek face 02/13/2014 04/02/2017 Solar lentigo 02/13/2014 04/02/2017 [...] 10/08/2010 Chest pain, unspecified 10/09/19 11 Overview: [facility] adm 03/17-03/18/10- Nuclear stress test no ischemia or ST changes, EF 70%. 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 Active CP in office 04/2010- to [facility] ED for eval- abn EKG, t-wave inversion documented as of this encounter (statuses as of 10/28/2021) [facility] of Past illness Narrative* Problem Noted Date Resolved Date Transient cerebral ischemia 12/09/201703/18 Orthostatic dizziness 04/02/2017 09/28/2017 Irritated//Inflamed Seborrheic Keratosis 014 10/03/2014 Pigmented Lentiginous Neopla sm Uncertain Behavior(NUB): R/O Lentigo Maligna at right faith//cheek face 02/13/2014 04/02/2017 Solar lentigo 02/13/2014 04/02/2017 [...] Overview: Colonoscopy - 15 May 2008 per [place] Cough 06/07/2006 10/08/2010 Chest pain, unspecified 10/09/19 11 Overview: [facility] adm 03/17-03/18/10- Nuclear stress test no ischemia or ST changes, EF 70%. 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 Active CP in office 04/2010- to [facility] ED for eval- abn EKG, t-wave inversion documented as of this encounter (statuses as of 11/11/2021) [facility] of Past illness Narrative* Problem Noted Date Resolved Date Transient cerebral ischemia 12/09/201703/18 Orthostatic dizziness 04/02/2017 09/28/2017 Irritated//Inflamed Seborrheic Keratosis 014 10/03/2014 Pigmented Lentiginous Neopla sm Uncertain Behavior(NUB): R/O Lentigo Maligna at right faith//cheek face 02/13/2014 04/02/2017 Solar lentigo 02/13/2014 04/02/2017 [...] 10/08/2010 Chest pain, unspecified 10/09/19 11 Overview: [facility] adm 03/17-03/18/10- Nuclear stress test no ischemia or ST changes, EF 70%. 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 Active CP in office 04/2010- to [facility] ED for eval- abn EKG, t-wave inversion documented as of this encounter (statuses as of 11/19/2021) [facility] of [facility] illness Narrative* Problem Noted Date Resolved Date Transient cerebral ischemia 12/09/201703/18 Orthostatic dizziness 04/02/2017 09/28/2017 Irritated//Inflamed Seborrheic Keratosis 014 10/03/2014 Pigmented Lentiginous Neopla sm Uncertain Behavior(NUB): R/O Lentigo Maligna at right faith//cheek face 02/13/2014 04/02/2017 Solar lentigo 02/13/2014 04/02/2017 [...] 10/08/2010 Chest pain, unspecified 10/09/19 11 Overview: [facility] adm 03/17-03/18/10- Nuclear stress test no ischemia or ST changes, EF 70%. 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 Active CP in office 04/2010- to [facility] ED for eval- abn EKG, t-wave inversion documented as of this encounter (statuses as of 11/27/2021) [facility] of [facility] Narrative* Problem Noted Date Resolved Date Transient cerebral ischemia 12/09/201703/18 Orthostatic dizziness 04/02/2017 09/28/2017 Irritated//Inflamed Seborrheic Keratosis 014 10/03/2014 Pigmented Lentiginous Neopla sm Uncertain Behavior(NUB): R/O Lentigo Maligna at right faith//cheek face 02/13/2014 04/02/2017 Solar lentigo 02/13/2014 04/02/2017 [...] 10/08/2010 Chest pain, unspecified 10/09/19 11 Overview: [facility] adm 03/17-03/18/10- Nuclear stress test no ischemia or ST changes, EF 70%. 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 Active CP in office 04/2010- to [facility] ED for eval- abn EKG, t-wave inversion documented as of this encounter (statuses as of 12/15/2021) [facility] of [facility] illness Narrative* Problem Noted Date Resolved Date Transient cerebral ischemia 12/09/201703/18 Orthostatic dizziness 04/02/2017 09/28/2017 Irritated//Inflamed Seborrheic Keratosis 014 10/03/2014 Pigmented Lentiginous Ne[place]la sm Uncertain Behavior(NUB): R/O Lentigo Maligna at right faith//cheek face 02/13/2014 04/02/2017 Solar lentigo 02/13/2014 04/02/2017 [...] Overview: Colonoscopy - 15 May 2008 per [place] Cough 06/07/2006 10/08/2010 Chest pain, unspecified 10/09/19 11 Overview: [facility] adm 03/17-03/18/10- Nuclear stress test no ischemia or ST changes, EF 70%. 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 Active CP in office 04/2010- to [facility] ED for eval- abn EKG, t-wave inversion documented as of this encounter (statuses as of 12/31/2021) [facility] of [facility] illness Narrative* Problem Noted Date Resolved Date Transient cerebral ischemia 12/09/201703/18 Orthostatic dizziness 04/02/2017 09/28/2017 Irritated//Inflamed Seborrheic Keratosis 014 10/03/2014 Pigmented Lentiginous Neopla sm Uncertain Behavior(NUB): R/O Lentigo Maligna at right faith//cheek face 02/13/2014 04/02/2017 Solar lentigo 02/13/2014 04/02/2017 [...] 10/08/2010 Chest pain, unspecified 10/09/19 11 Overview: [facility] adm 03/17-03/18/10- Nuclear stress test no ischemia or ST changes, EF 70%. 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 Active CP in office 04/2010- to [facility] ED for eval- abn EKG, t-wave inversion documented as of this encounter (statuses as of 01/15/2022) [facility] Narrative* Problem Noted Date Resolved Date Transient cerebral ischemia 12/09/201703/18 Orthostatic dizziness 04/02/2017 09/28/2017 Irritated//Inflamed Seborrheic Keratosis 014 10/03/2014 Pigmented Lentiginous Neopla sm Uncertain Behavior(NUB): R/O Lentigo Maligna at right faith//cheek face 02/13/2014 04/02/2017 Solar lentigo 02/13/2014 04/02/2017 [...] Overview: Colonoscopy - 15 May 2008 per [place] Cough 06/07/2006 10/08/2010 Chest pain, unspecified 10/09/19 11 Overview: [facility] adm 03/17-03/18/10- Nuclear stress test no ischemia or ST changes, EF 70%. 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 Active CP in office 04/2010- to [facility] ED for eval- abn EKG, t-wave inversion documented as of this encounter (statuses as of 02/04/2022) [facility] Narrative* Problem Noted Date Resolved Date Transient cerebral ischemia 12/09/201703/18 Orthostatic dizziness 04/02/2017 09/28/2017 Irritated//Inflamed Seborrheic Keratosis 014 10/03/2014 Pigmented Lentiginous Neopla sm Uncertain Behavior(NUB): R/O Lentigo Maligna at right faith//cheek face 02/13/2014 04/02/2017 Solar lentigo 02/13/2014 04/02/2017 [...] Overview: Colonoscopy - 15 May 2008 per [place] Cough 06/07/2006 10/08/2010 Chest pain, unspecified 10/09/19 11 Overview: [facility] adm 03/17-03/18/10- Nuclear stress test no ischemia or ST changes, EF 70%. 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 Active CP in office 04/2010- to [facility] ED for eval- abn EKG, t-wave inversion documented as of this encounter (statuses as of 02/19/2022) [facility] Narrative* Problem Noted Date Resolved Date Transient cerebral ischemia 12/09/201703/18 Orthostatic dizziness 04/02/2017 09/28/2017 Irritated//Inflamed Seborrheic Keratosis 014 10/03/2014 Pigmented Lentiginous Neopla sm Uncertain Behavior(NUB): R/O Lentigo Maligna at right faith//cheek face 02/13/2014 04/02/2017 Solar lentigo 02/13/2014 04/02/2017 [...] Overview: Colonoscopy - 15 May 2008 per [place] Cough 06/07/2006 10/08/2010 Chest pain, unspecified 10/09/19 11 Overview: [facility] adm 03/17-03/18/10- Nuclear stress test no ischemia or ST changes, EF 70%. 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 Active CP in office 04/2010- to [facility] ED for eval- abn EKG, t-wave inversion documented as of this encounter (statuses as of 03/08/2022) [facility] Narrative* Problem Noted Date Resolved Date Transient cerebral ischemia 12/09/201703/18 Orthostatic dizziness 04/02/2017 09/28/2017 Irritated//Inflamed Seborrheic Keratosis 014 10/03/2014 Pigmented Lentiginous Neopla sm Uncertain Behavior(NUB): R/O Lentigo Maligna at right faith//cheek face 02/13/2014 04/02/2017 Solar lentigo 02/13/2014 04/02/2017 [...] Overview: Colonoscopy - 15 May 2008 per [place] OVERWEIGHT 08/15/2006 03/10/2022 Cough 06/07/2006 10/08/2010 Chest pain, unspecified 10/09/19 11 Overview: [facility] adm 03/17-03/18/10- Nuclear stress test no ischemia or ST changes, EF 70%. 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 Active CP in office 04/2010- to [facility] ED for eval- abn EKG, t-wave inversion documented as of this encounter (statuses as of 04/28/2022) [facility] Narrative* Problem Noted Date Resolved Date Transient cerebral ischemia 12/09/201703/18 Orthostatic dizziness 04/02/2017 09/28/2017 Irritated//Inflamed Seborrheic Keratosis 014 10/03/2014 Pigmented Lentiginous Neopla sm Uncertain Behavior(NUB): R/O Lentigo Maligna at right faith//cheek face 02/13/2014 04/02/2017 Solar lentigo 02/13/2014 04/02/2017 [...] Overview: Colonoscopy - 15 May 2008 per [place] OVERWEIGHT 08/15/2006 03/10/2022 Cough 06/07/2006 10/08/2010 Chest pain, unspecified 10/09/19 11 Overview: [facility] adm 03/17-03/18/10- Nuclear stress test no ischemia or ST changes, EF 70%. 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 Active CP in office 04/2010- to [facility] ED for eval- abn EKG, t-wave inversion documented as of this encounter (statuses as of 05/03/2022) [facility] Narrative* Problem Noted Date Resolved Date Transient cerebral ischemia 12/09/201703/18 Orthostatic dizziness 04/02/2017 09/28/2017 Irritated//Inflamed Seborrheic Keratosis 014 10/03/2014 Pigmented Lentiginous Neopla sm Uncertain Behavior(NUB): R/O Lentigo Maligna at right faith//cheek face 02/13/2014 04/02/2017 Solar lentigo 02/13/2014 04/02/2017 [...] Overview: Colonoscopy - 15 May 2008 per [place] OVERWEIGHT 08/15/2006 03/10/2022 Cough 06/07/2006 10/08/2010 Chest pain, unspecified 10/09/19 11 Overview: [facility] adm 03/17-03/18/10- Nuclear stress test no ischemia or ST changes, EF 70%. 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 Active CP in office 04/2010- to [facility] ED for eval- abn EKG, t-wave inversion documented as of this encounter (statuses as of 05/04/2022) [facility] Narrative* Problem Noted Date Resolved Date Transient cerebral ischemia 12/09/201703/18 Orthostatic dizziness 04/02/2017 09/28/2017 Irritated//Inflamed Seborrheic Keratosis 014 10/03/2014 Pigmented Lentiginous Neopla sm Uncertain Behavior(NUB): R/O Lentigo Maligna at right faith//cheek face 02/13/2014 04/02/2017 Solar lentigo 02/13/2014 04/02/2017 [...] Overview: Colonoscopy - 15 May 2008 per [place] OVERWEIGHT 08/15/2006 03/10/2022 Cough 06/07/2006 10/08/2010 Chest pain, unspecified 10/09/19 11 Overview: [facility] adm 03/17-03/18/10- Nuclear stress test no ischemia or ST changes, EF 70%. 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 Active CP in office 04/2010- to [facility] ED for eval- abn EKG, t-wave inversion documented as of this encounter (statuses as of 05/13/2022) [facility]arrative* Problem Noted Date Resolved Date Transient cerebral ischemia 12/09/201703/18 Orthostatic dizziness 04/02/2017 09/28/2017 Irritated//Inflamed Seborrheic Keratosis 014 10/03/2014 Pigmented Lentiginous Neopla sm Uncertain Behavior(NUB): R/O Lentigo Maligna at right faith//cheek face 02/13/2014 04/02/2017 Solar lentigo 02/13/2014 04/02/2017 [...] 10/08/2010 Chest pain, unspecified 10/09/19 11 Overview: [facility] adm 03/17-03/18/10- Nuclear stress test no ischemia or ST changes, EF 70%. 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 Active CP in office 04/2010- to [facility] ED for eval- abn EKG, t-wave inversion documented as of this encounter (statuses as of 05/21/2022) [facility]ative* Problem Noted Date Resolved Date Transient cerebral ischemia 12/09/201703/18 Orthostatic dizziness 04/02/2017 09/28/2017 Irritated//Inflamed Seborrheic Keratosis 014 10/03/2014 Pigmented Lentiginous Neopla sm Uncertain Behavior(NUB): R/O Lentigo Maligna at right faith//cheek face 02/13/2014 04/02/2017 Solar lentigo 02/13/2014 04/02/2017 [...] Overview: Colonoscopy - 15 May 2008 per [place] OVERWEIGHT 08/15/2006 03/10/2022 Cough 06/07/2006 10/08/2010 Chest pain, unspecified 10/09/19 11 Overview: [facility] adm 03/17-03/18/10- Nuclear stress test no ischemia or ST changes, EF 70%. 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 Active CP in office 04/2010- to [facility] ED for eval- abn EKG, t-wave inversion documented as of this encounter (statuses as of 05/24/2022) [facility] Narrative* Problem Noted Date Resolved Date Transient cerebral ischemia 12/09/201703/18 Orthostatic dizziness 04/02/2017 09/28/2017 Irritated//Inflamed Seborrheic Keratosis 014 10/03/2014 Pigmented Lentiginous Neopla sm Uncertain Behavior(NUB): R/O Lentigo Maligna at right faith//cheek face 02/13/2014 04/02/2017 Solar lentigo 02/13/2014 04/02/2017 [...] Overview: Colonoscopy - 15 May 2008 per [place] OVERWEIGHT 08/15/2006 03/10/2022 Cough 06/07/2006 10/08/2010 Chest pain, unspecified 10/09/19 11 Overview: [facility] adm 03/17-03/18/10- Nuclear stress test no ischemia or ST changes, EF 70%. 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 Active CP in office 04/2010- to [facility] ED for eval- abn EKG, t-wave inversion documented as of this encounter (statuses as of 06/22/2022) [facility] Narrative* Problem Noted Date Resolved Date Transient cerebral ischemia 12/09/201703/18 Orthostatic dizziness 04/02/2017 09/28/2017 Irritated//Inflamed Seborrheic Keratosis 014 10/03/2014 Pigmented Lentiginous Neopla sm Uncertain Behavior(NUB): R/O Lentigo Maligna at right faith//cheek face 02/13/2014 04/02/2017 Solar lentigo 02/13/2014 04/02/2017 [...] 10/08/2010 Chest pain, unspecified 10/09/19 11 Overview: [facility] adm 03/17-03/18/10- Nuclear stress test no ischemia or ST changes, EF 70%. 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 Active CP in office 04/2010- to [facility] ED for eval- abn EKG, t-wave inversion documented as of this encounter (statuses as of 06/23/2022) [facility] Narrative* Problem Noted Date Resolved Date Transient cerebral ischemia 12/09/201703/18 Orthostatic dizziness 04/02/2017 09/28/2017 Irritated//Inflamed Seborrheic Keratosis 014 10/03/2014 Pigmented Lentiginous Neopla sm Uncertain Behavior(NUB): R/O Lentigo Maligna at right faith//cheek face 02/13/2014 04/02/2017 Solar lentigo 02/13/2014 04/02/2017 [...] Overview: Colonoscopy - 15 May 2008 per [place] OVERWEIGHT 08/15/2006 03/10/2022 Cough 06/07/2006 10/08/2010 Chest pain, unspecified 10/09/19 11 Overview: [facility] adm 03/17-03/18/10- Nuclear stress test no ischemia or ST changes, EF 70%. 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 Active CP in office 04/2010- to [facility] ED for eval- abn EKG, t-wave inversion documented as of this encounter (statuses as of 07/11/2022) [facility]05-[facility]-2018 History of Past illness Narrative* Problem Noted Date Resolved Date Transient cerebral ischemia 12/09/201703/18 Orthostatic dizziness 04/02/2017 09/28/2017 Irritated//Inflamed Seborrheic Keratosis 014 10/03/2014 Pigmented Lentiginous Neopla sm Uncertain Behavior(NUB): R/O Lentigo Maligna at right faith//cheek face 02/13/2014 04/02/2017 Solar lentigo 02/13/2014 04/02/2017 [...] Overview: Colonoscopy - 15 May 2008 per [place] OVERWEIGHT 08/15/2006 03/10/2022 Cough 06/07/2006 10/08/2010 Chest pain, unspecified 10/09/19 11 Overview: [facility] adm 03/17-03/18/10- Nuclear stress test no ischemia or ST changes, EF 70%. 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 Active CP in office 04/2010- to [facility] ED for eval- abn EKG, t-wave inversion documented as of this encounter (statuses as of 07/20/2022) [facility]2018 History of Past illness Narrative* Problem Noted Date Resolved Date Transient cerebral ischemia 12/09/201703/18 Orthostatic dizziness 04/02/2017 09/28/2017 Irritated//Inflamed Seborrheic Keratosis 014 10/03/2014 Pigmented Lentiginous [place]opla sm Uncertain Behavior(NUB): R/O Lentigo Maligna at right faith//cheek face 02/13/2014 04/02/2017 Solar lentigo 02/13/2014 04/02/2017 [...] Overview: Colonoscopy - 15 May 2008 per [place] OVERWEIGHT 08/15/2006 03/10/2022 Cough 06/07/2006 10/08/2010 Chest pain, unspecified 10/09/19 11 Overview: [facility] adm 03/17-03/18/10- Nuclear stress test no ischemia or ST changes, EF 70%. 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 Active CP in office 04/2010- to [facility] ED for eval- abn EKG, t-wave inversion documented as of this encounter (statuses as of 07/21/2022) [facility] History of Past illness Narrative* Problem Noted Date Resolved Date Transient cerebral ischemia 12/09/201703/18 Orthostatic dizziness 04/02/2017 09/28/2017 Irritated//Inflamed Seborrheic Keratosis 014 10/03/2014 Pigmented Lentiginous [place]la sm Uncertain Behavior(NUB): R/O Lentigo Maligna at right faith//cheek face 02/13/2014 04/02/2017 Solar lentigo 02/13/2014 04/02/2017 [...] 10/08/2010 Chest pain, unspecified 10/09/19 11 Overview: [facility] adm 03/17-03/18/10- Nuclear stress test no ischemia or ST changes, EF 70%. 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 Active CP in office 04/2010- to [facility] ED for eval- abn EKG, t-wave inversion documented as of this encounter (statuses as of 07/24/2022) [facility] History of Past illness Narrative* Problem Noted Date Resolved Date Transient cerebral ischemia 12/09/201703/18 Orthostatic dizziness 04/02/2017 09/28/2017 Irritated//Inflamed Seborrheic Keratosis 014 10/03/2014 Pigmented Lentiginous Neopla sm Uncertain Behavior(NUB): R/O Lentigo Maligna at right faith//cheek face 02/13/2014 04/02/2017 Solar lentigo 02/13/2014 04/02/2017 [...] Overview: Colonoscopy - 15 May 2008 per [place] OVERWEIGHT 08/15/2006 03/10/2022 Cough 06/07/2006 10/08/2010 Chest pain, unspecified 10/09/19 11 Overview: [facility] adm 03/17-03/18/10- Nuclear stress test no ischemia or ST changes, EF 70%. 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 Active CP in office 04/2010- to [facility] ED for eval- abn EKG, t-wave inversion documented as of this encounter (statuses as of 07/28/2022) [facility] History of Past illness Narrative* Problem Noted Date Resolved Date Transient cerebral ischemia 12/09/201703/18 Orthostatic dizziness 04/02/2017 09/28/2017 Irritated//Inflamed Seborrheic Keratosis 014 10/03/2014 Pigmented Lentiginous Neopla sm Uncertain Behavior(NUB): R/O Lentigo Maligna at right faith//cheek face 02/13/2014 04/02/2017 Solar lentigo 02/13/2014 04/02/2017 [...] 10/08/2010 Chest pain, unspecified 10/09/19 11 Overview: [facility] adm 03/17-03/18/10- Nuclear stress test no ischemia or ST changes, EF 70%. 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 Active CP in office 04/2010- to [facility] ED for eval- abn EKG, t-wave inversion documented as of this encounter (statuses as of 07/28/2022) [facility] History of Past illness Narrative* Problem Noted Date Resolved Date Transient cerebral ischemia 12/09/201703/18 Orthostatic dizziness 04/02/2017 09/28/2017 Irritated//Inflamed Seborrheic Keratosis 014 10/03/2014 Pigmented Lentiginous Neopla sm Uncertain Behavior(NUB): R/O Lentigo Maligna at right faith//cheek face 02/13/2014 04/02/2017 Solar lentigo 02/13/2014 04/02/2017 [...] 10/08/2010 Chest pain, unspecified 10/09/19 11 Overview: [facility] adm 03/17-03/18/10- Nuclear stress test no ischemia or ST changes, EF 70%. 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 Active CP in office 04/2010- to [facility] ED for eval- abn EKG, t-wave inversion documented as of this encounter (statuses as of 08/26/2022) [facility] History of Past illness Narrative* Problem Noted Date Resolved Date Transient cerebral ischemia 12/09/201703/18 Orthostatic dizziness 04/02/2017 09/28/2017 Irritated//Inflamed Seborrheic Keratosis 014 10/03/2014 Pigmented Lentiginous Neopla sm Uncertain Behavior(NUB): R/O Lentigo Maligna at right faith//cheek face 02/13/2014 04/02/2017 Solar lentigo 02/13/2014 04/02/2017 [...] Overview: Colonoscopy - 15 May 2008 per [place] OVERWEIGHT 08/15/2006 03/10/2022 Cough 06/07/2006 10/08/2010 Chest pain, unspecified 10/09/19 11 Overview: [facility] adm 03/17-03/18/10- Nuclear stress test no ischemia or ST changes, EF 70%. 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 Active CP in office 04/2010- to [facility] ED for eval- abn EKG, t-wave inversion documented as of this encounter (statuses as of 08/27/2022) [facility] History of Past illness Narrative* Problem Noted Date Resolved Date Transient cerebral ischemia 12/09/201703/18 Orthostatic dizziness 04/02/2017 09/28/2017 Irritated//Inflamed Seborrheic Keratosis 014 10/03/2014 Pigmented Lentiginous Neopla sm Uncertain Behavior(NUB): R/O Lentigo Maligna at right faith//cheek face 02/13/2014 04/02/2017 Solar lentigo 02/13/2014 04/02/2017 [...] 10/08/2010 Chest pain, unspecified 10/09/19 11 Overview: [facility] adm 03/17-03/18/10- Nuclear stress test no ischemia or ST changes, EF 70%. 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 Active CP in office 04/2010- to [facility] ED for eval- abn EKG, t-wave inversion documented as of this encounter (statuses as of 09/01/2022) [facility] History of Past illness Narrative* Problem Noted Date Resolved Date Transient cerebral ischemia 12/09/201703/18 Orthostatic dizziness 04/02/2017 09/28/2017 Irritated//Inflamed Seborrheic Keratosis 014 10/03/2014 Pigmented Lentiginous Neopla sm Uncertain Behavior(NUB): R/O Lentigo Maligna at right faith//cheek face 02/13/2014 04/02/2017 Solar lentigo 02/13/2014 04/02/2017 [...] 10/08/2010 Chest pain, unspecified 10/09/19 11 Overview: [facility] adm 03/17-03/18/10- Nuclear stress test no ischemia or ST changes, EF 70%. 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 Active CP in office 04/2010- to [facility] ED for eval- abn EKG, t-wave inversion documented as of this encounter (statuses as of 09/22/2022) [facility] History of Past illness Narrative* Problem Noted Date Resolved Date Transient cerebral ischemia 12/09/201703/18 Orthostatic dizziness 04/02/2017 09/28/2017 Irritated//Inflamed Seborrheic Keratosis 014 10/03/2014 Pigmented Lentiginous [place]opla sm Uncertain Behavior(NUB): R/O Lentigo Maligna at right faith//cheek face 02/13/2014 04/02/2017 Solar lentigo 02/13/2014 04/02/2017 [...] 10/08/2010 Chest pain, unspecified 10/09/19 11 Overview: [facility] adm 03/17-03/18/10- Nuclear stress test no ischemia or ST changes, EF 70%. 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 Active CP in office 04/2010- to [facility] ED for eval- abn EKG, t-wave inversion documented as of this encounter (statuses as of 10/01/2022) [facility] History of Past illness Narrative* Problem Noted Date Resolved Date Transient cerebral ischemia 12/09/201703/18 Orthostatic dizziness 04/02/2017 09/28/2017 Irritated//Inflamed Seborrheic Keratosis 014 10/03/2014 Pigmented Lentiginous [place]opla sm Uncertain Behavior(NUB): R/O Lentigo Maligna at right faith//cheek face 02/13/2014 04/02/2017 Solar lentigo 02/13/2014 04/02/2017 [...] Overview: Colonoscopy - 15 May 2008 per [place] OVERWEIGHT 08/15/2006 03/10/2022 Cough 06/07/2006 10/08/2010 Chest pain, unspecified 10/09/19 11 Overview: [facility] adm 03/17-03/18/10- Nuclear stress test no ischemia or ST changes, EF 70%. 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 Active CP in office 04/2010- to [facility] ED for eval- abn EKG, t-wave inversion documented as of this encounter (statuses as of 10/15/2022) [facility] History of Past illness Narrative* Problem Noted Date Resolved Date Transient cerebral ischemia 12/09/201703/18 Orthostatic dizziness 04/02/2017 09/28/2017 Irritated//Inflamed Seborrheic Keratosis 014 10/03/2014 Pigmented Lentiginous [place]la sm Uncertain Behavior(NUB): R/O Lentigo Maligna at right faith//cheek face 02/13/2014 04/02/2017 Solar lentigo 02/13/2014 04/02/2017 [...] 10/08/2010 Chest pain, unspecified 10/09/19 11 Overview: [facility] adm 03/17-03/18/10- Nuclear stress test no ischemia or ST changes, EF 70%. 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 Active CP in office 04/2010- to [facility] ED for eval- abn EKG, t-wave inversion documented as of this encounter (statuses as of 10/21/2022) [facility] History of Past illness Narrative* Problem Noted Date Resolved Date Transient cerebral ischemia 12/09/201703/18 Orthostatic dizziness 04/02/2017 09/28/2017 Irritated//Inflamed Seborrheic Keratosis 014 10/03/2014 Pigmented Lentiginous [place]opla sm Uncertain Behavior(NUB): R/O Lentigo Maligna at right faith//cheek face 02/13/2014 04/02/2017 Solar lentigo 02/13/2014 04/02/2017 [...] Overview: Colonoscopy - 15 May 2008 per [place] OVERWEIGHT 08/15/2006 03/10/2022 Cough 06/07/2006 10/08/2010 Chest pain, unspecified 10/09/19 11 Overview: [facility] adm 03/17-03/18/10- Nuclear stress test no ischemia or ST changes, EF 70%. 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 Active CP in office 04/2010- to [facility] ED for eval- abn EKG, t-wave inversion documented as of this encounter (statuses as of 11/04/2022) [facility] History of Past illness Narrative* Problem Noted Date Resolved Date Transient cerebral ischemia 12/09/201703/18 Orthostatic dizziness 04/02/2017 09/28/2017 Irritated//Inflamed Seborrheic Keratosis 014 10/03/2014 Pigmented Lentiginous [place] sm Uncertain Behavior(NUB): R/O Lentigo Maligna at right faith//cheek face 02/13/2014 04/02/2017 Solar lentigo 02/13/2014 04/02/2017 [...] 10/08/2010 Chest pain, unspecified 10/09/19 11 Overview: [facility] adm 03/17-03/18/10- Nuclear stress test no ischemia or ST changes, EF 70%. 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 Active CP in office 04/2010- to [facility] ED for eval- abn EKG, t-wave inversion documented as of this encounter (statuses as of 11/05/2022) [facility] History of Past illness Narrative* Problem Noted Date Resolved Date Transient cerebral ischemia 12/09/201703/18 Orthostatic dizziness 04/02/2017 09/28/2017 Irritated//Inflamed Seborrheic Keratosis 014 10/03/2014 Pigmented Lentiginous [place]la sm Uncertain Behavior(NUB): R/O Lentigo Maligna at right faith//cheek face 02/13/2014 04/02/2017 Solar lentigo 02/13/2014 04/02/2017 [...] Overview: Colonoscopy - 15 May 2008 per [place] OVERWEIGHT 08/15/2006 03/10/2022 Cough 06/07/2006 10/08/2010 Chest pain, unspecified 10/09/19 11 Overview: [facility] adm 03/17-03/18/10- Nuclear stress test no ischemia or ST changes, EF 70%. 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 Active CP in office 04/2010- to [facility] ED for eval- abn EKG, t-wave inversion documented as of this encounter (statuses as of 11/12/2022) [facility] History of Past illness Narrative* Problem Noted Date Resolved Date Transient cerebral ischemia 12/09/201703/18 Orthostatic dizziness 04/02/2017 09/28/2017 Irritated//Inflamed Seborrheic Keratosis 014 10/03/2014 Pigmented Lentiginous Neopla sm Uncertain Behavior(NUB): R/O Lentigo Maligna at right faith//cheek face 02/13/2014 04/02/2017 Solar lentigo 02/13/2014 04/02/2017 [...] Overview: Colonoscopy - 15 May 2008 per [place] OVERWEIGHT 08/15/2006 03/10/2022 Cough 06/07/2006 10/08/2010 Chest pain, unspecified 10/09/19 11 Overview: [facility] adm 03/17-03/18/10- Nuclear stress test no ischemia or ST changes, EF 70%. 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 Active CP in office 04/2010- to [facility] ED for eval- abn EKG, t-wave inversion documented as of this encounter (statuses as of 11/22/2022) [facility] History of Past illness Narrative* Problem Noted Date Resolved Date Transient cerebral ischemia 12/09/201703/18 Orthostatic dizziness 04/02/2017 09/28/2017 Irritated//Inflamed Seborrheic Keratosis 014 10/03/2014 Pigmented Lentiginous Neopla sm Uncertain Behavior(NUB): R/O Lentigo Maligna at right faith//cheek face 02/13/2014 04/02/2017 Solar lentigo 02/13/2014 04/02/2017 [...] 10/08/2010 Chest pain, unspecified 10/09/19 11 Overview: [facility] adm 03/17-03/18/10- Nuclear stress test no ischemia or ST changes, EF 70%. 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 Active CP in office 04/2010- to [facility] ED for eval- abn EKG, t-wave inversion documented as of this encounter (statuses as of 12/31/2022) [facility] History of Past illness Narrative* Problem Noted Date Resolved Date Transient cerebral ischemia 12/09/201703/18 Orthostatic dizziness 04/02/2017 09/28/2017 Irritated//Inflamed Seborrheic Keratosis 014 10/03/2014 Pigmented Lentiginous Neopla sm Uncertain Behavior(NUB): R/O Lentigo Maligna at right faith//cheek face 02/13/2014 04/02/2017 Solar lentigo 02/13/2014 04/02/2017 [...] Overview: Colonoscopy - 15 May 2008 per [place] OVERWEIGHT 08/15/2006 03/10/2022 Cough 06/07/2006 10/08/2010 Chest pain, unspecified 10/09/19 11 Overview: [facility] adm 03/17-03/18/10- Nuclear stress test no ischemia or ST changes, EF 70%. 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.] Overview: Colonoscopy - 15 May 2008 per [place] OVERWEIGHT 08/15/2006 03/10/2022 Cough 06/07/2006 10/08/2010 Chest pain, unspecified 09/16 Overview: [facility] adm 03/17-03/18/10- Nuclear stress test no ischemia or ST changes, EF 70%. 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.] Overview: Colonoscopy - 15 May 2008 per [place] OVERWEIGHT 08/15/2006 03/10/2022 Cough 06/07/2006 10/08/2010 Chest pain, unspecified 09/16 Overview: [facility] adm 03/17-03/18/10- Nuclear stress test no ischemia or ST changes, EF 70%. 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.] 06/07/2006 10/08/2010 Chest pain, unspecified 09/16 Overview: [facility] adm 03/17-03/18/10- Nuclear stress test no ischemia or ST changes, EF 70%. 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.] 06/07/2006 10/08/2010 Chest pain, unspecified 09/16 Overview: [facility] adm 03/17-03/18/10- Nuclear stress test no ischemia or ST changes, EF 70%. 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.] Overview: Colonoscopy - 15 May 2008 per [place] OVERWEIGHT 08/15/2006 03/10/2022 Cough 06/07/2006 10/08/2010 Chest pain, unspecified 09/16 Overview: [facility] adm 03/17-03/18/10- Nuclear stress test no ischemia or ST changes, EF 70%. 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.] 06/07/2006 10/08/2010 Chest pain, unspecified 09/16 Overview: [facility] adm 03/17-03/18/10- Nuclear stress test no ischemia or ST changes, EF 70%. 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.] 06/07/2006 10/08/2010 Chest pain, unspecified 09/16 Overview: [facility] adm 03/17-03/18/10- Nuclear stress test no ischemia or ST changes, EF 70%. 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.] Overview: Colonoscopy - 15 May 2008 per [place] OVERWEIGHT 08/15/2006 03/10/2022 Cough 06/07/2006 10/08/2010 Chest pain, unspecified 09/16 Overview: [facility] adm 03/17-03/18/10- Nuclear stress test no ischemia or ST changes, EF 70%. 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.] 06/07/2006 10/08/2010 Chest pain, unspecified 09/16 Overview: [facility] adm 03/17-03/18/10- Nuclear stress test no ischemia or ST changes, EF 70%. 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.] Overview: Colonoscopy - 15 May 2008 per [place] OVERWEIGHT 08/15/2006 03/10/2022 Cough 06/07/2006 10/08/2010 Chest pain, unspecified 09/16 Overview: [facility] adm 03/17-03/18/10- Nuclear stress test no ischemia or ST changes, EF 70%. 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.] 06/07/2006 10/08/2010 Chest pain, unspecified 09/16 Overview: [facility] adm 03/17-03/18/10- Nuclear stress test no ischemia or ST changes, EF 70%. 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 Active CP in office 04/2010- to [facility] ED for eval- abn EKG, t-wave inversion documented as of this encounter (statuses as of 05/22/2023) [facility] History of Past illness Narrative* Problem Noted Date Diagnosed Date Resolved Date Transient cerebral ischemia 12/09/2017 04/04/2018 Orthostatic dizziness 04/02/20172017 Thrombocytopenia 09/26/2014 05/25/2023 Irritated//Inflamed Seborrheic Keratosis 02/13/2014 10/03/2014 Pigmented Lentiginous Neopla sm Uncertain Behavior(NUB): R/O Lentigo Maligna at right faith//cheek face 02/13/2014 04/02/2017 Solar lentigo 02/13/2014 04/02/2017 [...] 06/07/2006 10/08/2010 Chest pain, unspecified 09/16 Overview: [facility] adm 03/17-03/18/10- Nuclear stress test no ischemia or ST changes, EF 70%. 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 Active CP in office 04/2010- to [facility] ED for eval- abn EKG, t-wave inversion documented as of this encounter (statuses as of 05/26/2023) [facility] History of Past illness Narrative* Problem Noted Date Diagnosed Date Resolved Date Transient cerebral ischemia 12/09/2017 04/04/2018 Orthostatic dizziness 04/02/20172017 Thrombocytopenia 09/26/2014 05/25/2023 Irritated//Inflamed Seborrheic Keratosis 02/13/2014 10/03/2014 Pigmented Lentiginous Neopla sm Uncertain Behavior(NUB): R/O Lentigo Maligna at right faith//cheek face 02/13/2014 04/02/2017 Solar lentigo 02/13/2014 04/02/2017 [...] Overview: Colonoscopy - 15 May 2008 per [place] OVERWEIGHT 08/15/2006 03/10/2022 Cough 06/07/2006 10/08/2010 Chest pain, unspecified 09/16 Overview: [facility] adm 03/17-03/18/10- Nuclear stress test no ischemia or ST changes, EF 70%. 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 Active CP in office 04/2010- to [facility] ED for eval- abn EKG, t-wave inversion documented as of this encounter (statuses as of 06/01/2023) [facility] History of Past illness Narrative* Problem Noted Date Diagnosed Date Resolved Date Transient cerebral ischemia 12/09/2017 04/04/2018 Orthostatic dizziness 04/02/20172017 Thrombocytopenia 09/26/2014 05/25/2023 Irritated//Inflamed Seborrheic Keratosis 02/13/2014 10/03/2014 Pigmented Lentiginous Neopla sm Uncertain Behavior(NUB): R/O Lentigo Maligna at right faith//cheek face 02/13/2014 04/02/2017 Solar lentigo 02/13/2014 04/02/2017 [...] Overview: Colonoscopy - 15 May 2008 per [place] OVERWEIGHT 08/15/2006 03/10/2022 Cough 06/07/2006 10/08/2010 Chest pain, unspecified 09/16 Overview: [facility] adm 03/17-03/18/10- Nuclear stress test no ischemia or ST changes, EF 70%. 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 Active CP in office 04/2010- to [facility] ED for eval- abn EKG, t-wave inversion documented as of this encounter (statuses as of 06/01/2023) [facility] History of Past illness Narrative* Problem Noted Date Diagnosed Date Resolved Date Transient cerebral ischemia 12/09/2017 04/04/2018 Orthostatic dizziness 04/02/20172017 Thrombocytopenia 09/26/2014 05/25/2023 Irritated//Inflamed Seborrheic Keratosis 02/13/2014 10/03/2014 Pigmented Lentiginous Neopla sm Uncertain Behavior(NUB): R/O Lentigo Maligna at right faith//cheek face 02/13/2014 04/02/2017 Solar lentigo 02/13/2014 04/02/2017 [...] Overview: Colonoscopy - 15 May 2008 per [place] OVERWEIGHT 08/15/2006 03/10/2022 Cough 06/07/2006 10/08/2010 Chest pain, unspecified 09/16 Overview: [facility] adm 03/17-03/18/10- Nuclear stress test no ischemia or ST changes, EF 70%. 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 Active CP in office 04/2010- to [facility] ED for eval- abn EKG, t-wave inversion documented as of this encounter (statuses as of 06/07/2023) [facility] History of Past illness Narrative* Problem Noted Date Diagnosed Date Resolved Date Transient cerebral ischemia 12/09/2017 04/04/2018 Orthostatic dizziness 04/02/20172017 Thrombocytopenia 09/26/2014 05/25/2023 Irritated//Inflamed Seborrheic Keratosis 02/13/2014 10/03/2014 Pigmented Lentiginous Neopla sm Uncertain Behavior(NUB): R/O Lentigo Maligna at right faith//cheek face 02/13/2014 04/02/2017 Solar lentigo 02/13/2014 04/02/2017 [...] Overview: Colonoscopy - 15 May 2008 per [place] OVERWEIGHT 08/15/2006 03/10/2022 Cough 06/07/2006 10/08/2010 Chest pain, unspecified 09/16 Overview: [facility] adm 03/17-03/18/10- Nuclear stress test no ischemia or ST changes, EF 70%. 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 Active CP in office 04/2010- to [facility] ED for eval- abn EKG, t-wave inversion documented as of this encounter (statuses as of 06/16/2023) [facility] History of Past illness Narrative* Problem Noted Date Diagnosed Date Resolved Date Transient cerebral ischemia 12/09/2017 04/04/2018 Orthostatic dizziness 04/02/20172017 Thrombocytopenia 09/26/2014 05/25/2023 Irritated//Inflamed Seborrheic Keratosis 02/13/2014 10/03/2014 Pigmented Lentiginous Neopla sm Uncertain Behavior(NUB): R/O Lentigo Maligna at right faith//cheek face 02/13/2014 04/02/2017 Solar lentigo 02/13/2014 04/02/2017 [...] Overview: Colonoscopy - 15 May 2008 per [place] OVERWEIGHT 08/15/2006 03/10/2022 Cough 06/07/2006 10/08/2010 Chest pain, unspecified 09/16 Overview: [facility] adm 03/17-03/18/10- Nuclear stress test no ischemia or ST changes, EF 70%. 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 Active CP in office 04/2010- to [facility] ED for eval- abn EKG, t-wave inversion documented as of this encounter (statuses as of 06/21/2023) [facility] BPH with obstruction/lower urinary tract symptoms Hypertrophy of prostate with urinary obstruction and other lower urinary tract symptoms (LUTS) [facility] Diagnosis Pain in right foot- Primary Pain in limb Weakness Other malaise and fatigue Plantar fascial fibromatosis Difficulty walking Difficulty in walking [facility] Diagnosis Pain in right foot- Primary Pain in limb Weakness Other malaise and fatigue Plantar fascial fibromatosis Difficulty walking Difficulty in walking [facility] Diagnosis Pain in right foot- Primary Pain in limb Plantar fascial fibromatosis [facility] Diagnosis SOB (shortness of breath)- Primary Shortness of breath Acute cough [facility] Diagnosis Gastrointestinal hemorrhage, unspecified gastrointestinal hemorrhage type- Primary [facility] Diagnosis Acute upper GI bleed- Primary Hemorrhage of gastrointestinal tract, unspecified 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) Adenomatous polyp of transverse colon Atrial fibrillation, unspecified type (HCC) Generalized weakness Other malaise and fatigue [facility] Diagnosis COPD with chronic bronchitis (HCC)- Primary Obstructive chronic bronchitis without exacerbation Chronic rhinitis Chronic bilateral pleural effusions COPD (chronic obstructive pulmonary disease) with chronic bronchitis (HCC) Obstructive chronic bronchitis without exacerbation Gastroesophageal reflux disease, unspecified whether esophagitis present Edema of both legs Edema Atrial fibrillation, unspecified type (HCC) [facility] Diagnosis COPD with chronic bronchitis (HCC) Obstructive chronic bronchitis without exacerbation [facility] Diagnosis Mixed hyperlipidemia- Primary Impaired fasting glucose Thrombocytopenia (HCC) Thrombocytopenia, unspecified [facility] Diagnosis COPD with chronic bronchitis (HCC) Obstructive chronic bronchitis without exacerbation [facility] Diagnosis Medicare annual wellness visit, subsequent- Primary Routine general medical examination at a health care facility Anemia, unspecified type Encounter for immunization Need for other specified prophylactic vaccination against single bacterial disease [facility] Diagnosis Acute cystitis without hematuria- Primary Acute cystitis Chronic rhinitis COPD with chronic bronchitis (HCC) Obstructive chronic bronchitis without exacerbation 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 [facility] Diagnosis COPD with chronic bronchitis Obstructive chronic bronchitis without exacerbation [facility] Diagnosis COPD with chronic bronchitis Obstructive chronic bronchitis without exacerbation [facility] Diagnosis Chronic cough- Primary Cough Former smoker Personal history of tobacco use, presenting hazards to health [facility] Diagnosis Urinary tract infection without hematuria, site unspecified- Primary Acute confusion Delirium due to conditions classified elsewhere Malaise Other malaise and fatigue Need for influenza vaccination Need for prophylactic vaccination and inoculation against influenza Encounter for immunization Need for other specified prophylactic vaccination against single bacterial disease [facility] Diagnosis Acute confusion Delirium due to conditions classified elsewhere Malaise Other malaise and fatigue Weakness Other malaise and fatigue documented in this encounter [facility] note* Diagnosis Chronic bilateral pleural effusions [facility] Diagnosis Altered mental status, unspecified altered mental status type- Primary Anemia, unspecified type Vitamin D deficiency Unspecified vitamin D deficiency TIA (transient ischemic attack) Unspecified transient cerebral ischemia 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, unspecified vessel or lesion type (HCC) Atrial fibrillation, unspecified type (HCC) COPD (chronic obstructive pulmonary disease) with chronic bronchitis 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 Diagnosis Altered mental status, unspecified altered mental status type TIA (transient ischemic attack) Unspecified transient cerebral ischemia [facility] Diagnosis Excessive somnolence disorder- Primary Hypersomnia, unspecified Altered mental status, unspecified altered mental status type Dysthymia Dysthymic disorder Anemia, unspecified type BPH with obstruction/lower urinary tract symptoms Hypertrophy of prostate with urinary obstruction and other lower urinary tract symptoms (LUTS) [facility] Diagnosis Dysthymia Dysthymic disorder documented in this encounter [facility] for referral (narrative)* Outpatient Procedure (Routine) - Authorized Specialty Diagnoses / Procedures Referred By Contyoel t Referred To [facility] Diagnoses SOB (shortness of breath) Procedures ECG COMPLETE ECG ROUTINE ECG W/LEAST 12 LDS W/I&R Rin Dixon PA-C [address] [place] [address] [facility] [place] [address] [place] [address] Referral ID Status Reason Start Date Expiration Date Visits Requested Visits Authorized [id number] Authorized Auto-Generat ed Referral 05/24/2022 05/24/2023 1 1 [facility] Outpatient Procedure (Routine) - Authorized Specialty Diagnoses / Procedures Referred By Contac t Referred To Contact [facility] Diagnoses COPD with chronic bronchitis (HCC) Procedures LUNG DIFFUSION CAPACITY (DLCO) DIFFUSING CAPACITY Soha Akhtar APRN.PROSTHETIC TECHNICIAN [address] [place] [address] Res[facility] [place] [address] [place] [id number] Referral ID Status Reason Start Date Expiration Date Visits Requested Visits Authorized [id number] Authorized Auto-Generat ed Referral 10/15/2022 11/14/2023 1 1 * Outpatient Procedure (Routine) - Authorized Specialty Diagnoses / Procedures Referred By Contac t Referred To Contact [facility] Diagnoses COPD with chronic bronchitis (HCC) Procedures SPIROMETRY BASELINE ONLY SPMTRY W/VC EXPIRATORY JOSÉ LUIS W/WO MXML VOL VNTJ Soha Akhtar APRN.DEON [address] [place] [address] [address] Referral ID Status Reason Start Date Expiration Date Visits Requested Visits Authorized [id number] Authorized Auto-Generat ed Referral 10/15/2022 11/14/2023 1 1 [facility] Summary Purpose Family History No Family History Records FoundNo Family History Records FoundNo Family History Records Found Advance Directives No Advanced Directives Records FoundDocuments on File Type Date Recorded 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 Advance Directive(s) 05/25/2018 3:46 PM Reason for Referral Specialty Diagnoses / Procedures Referred By Contac t Referred To Contact CT IMAGING Diagnoses Acute confusion Malaise Weakness Procedures CT BRAIN WO IVCON CT HEAD/BRAIN W/O CONTRAST MATERIAL Sun Gan [employer].PROSTHETIC TECHNICIAN [address] [place] [address] [place] [address] Referral ID Status Reason Start Date Expiration Date V isits Requested Visits Authorized [id number] Closed Auto-Generate d Referral 05/09/2023 06/07/2024 1 1 Specialty Diagnoses / Procedures Referred By Swetha luna Referred To Contact [facility] IM[facility] Diagnoses Altered mental status, unspecified altered mental status type TIA (transient ischemic attack) Procedures MRI BRAIN WO IVCON MRI BRAIN BRAIN STEM W/O CONTRAST MATERIAL Malik, Sun, [employer].PROSTHETIC TECHNICIAN [address] [place] [address] [place] [address] Referral ID Status Reason Start Date Expiration Date Visits Requested Visits Authorized [id number] Authorized Auto-Generat ed Referral 05/25/2023 06/23/2024 1 1 Additional Source Comments (unrecognized sect ion and content) No Status Records FoundNo Status Records FoundNo Status Records Found INFORMATION SOURCE (unrecogn ized section and content) DATE CREATED AUTHOR AUTHOR'S ORGANIZ ATION 06/18/2023 [facility] DATE CREATED AUTHOR AUTHOR'S ORGANIZ ATION 09/22/2023 [facility] Source Comments (unrecognize d section and content) In the event this informatio n is protected by the Federal Confidentiality of Alcohol and Drug Abuse Patient Records regulations: The Federal rules restrict any use of the information to criminally investigate or prosecute any alcohol or drug abuse patient.[facility] the event this information is protected by the Federal Confidentiality of Alcohol and Drug Abuse Patient Records regulations: The Federal rules restrict any use of the information to criminally investigate or prosecute any alcohol or drug abuse patient.[facility] the event this information is protected by the Federal Confidentiality of Alcohol and Drug Abuse Patient Records regulations: The Federal rules restrict any use of the information to criminally investigate or prosecute any alcohol or drug abuse patient.[facility] the event this information is protected by the Federal Confidentiality of Alcohol and Drug Abuse Patient Records regulations: The Federal rules restrict any use of the information to criminally investigate or prosecute any alcohol or drug abuse patient.[facility] the event this information is protected by the Federal Confidentiality of Alcohol and Drug Abuse Patient Records regulations: The Federal rules restrict any use of the information to criminally investigate or prosecute any alcohol or drug abuse patient.[facility] the event this information is protected by the Federal Confidentiality of Alcohol and Drug Abuse Patient Records regulations: The Federal rules restrict any use of the information to criminally investigate or prosecute any alcohol or drug abuse patient.[facility] Hospital[facility] the event this information is protected by the Federal Confidentiality of Alcohol and Drug Abuse Patient Records regulations: The Federal rules restrict any use of the information to criminally investigate or prosecute any alcohol or drug abuse patient.[facility] Hospital[facility] the event this information is protected by the Federal Confidentiality of Alcohol and Drug Abuse Patient Records regulations: The Federal rules restrict any use of the information to criminally investigate or prosecute any alcohol or drug abuse patient.[facility] Hospital[facility] the event this information is protected by the Federal Confidentiality of Alcohol and Drug Abuse Patient Records regulations: The Federal rules restrict any use of the information to criminally investigate or prosecute any alcohol or drug abuse patient.[facility] Hospital[facility] the event this information is protected by the Federal Confidentiality of Alcohol and Drug Abuse Patient Records regulations: The Federal rules restrict any use of the information to criminally investigate or prosecute any alcohol or drug abuse patient.[facility] HospitalIn the event this information is protected by the Federal Confidentiality of Alcohol and Drug Abuse Patient Records regulations: The Federal rules restrict any use of the information to criminally investigate or prosecute any alcohol or drug abuse patient.[facility] HospitalIn the event this information is protected by the Federal Confidentiality of Alcohol and Drug Abuse Patient Records regulations: The Federal rules restrict any use of the information to criminally investigate or prosecute any alcohol or drug abuse patient.[facility] HospitalIn the event this information is protected by the Federal Confidentiality of Alcohol and Drug Abuse Patient Records regulations: The Federal rules restrict any use of the information to criminally investigate or prosecute any alcohol or drug abuse patient.[facility] HospitalIn the event this information is protected by the Federal Confidentiality of Alcohol and Drug Abuse Patient Records regulations: The Federal rules restrict any use of the information to criminally investigate or prosecute any alcohol or drug abuse patient.[facility] HospitalIn the event this information is protected by the Federal Confidentiality of Alcohol and Drug Abuse Patient Records regulations: The Federal rules restrict any use of the information to criminally investigate or prosecute any alcohol or drug abuse patient.[facility] HospitalIn the event this information is protected by the Federal Confidentiality of Alcohol and Drug Abuse Patient Records regulations: The Federal rules restrict any use of the information to criminally investigate or prosecute any alcohol or drug abuse patient.[facility] HospitalIn the event this information is protected by the Federal Confidentiality of Alcohol and Drug Abuse Patient Records regulations: The Federal rules restrict any use of the information to criminally investigate or prosecute any alcohol or drug abuse patient.[facility] HospitalIn the event this information is protected by the Federal Confidentiality of Alcohol and Drug Abuse Patient Records regulations: The Federal rules restrict any use of the information to criminally investigate or prosecute any alcohol or drug abuse patient.[facility] HospitalIn the event this information is protected by the Federal Confidentiality of Alcohol and Drug Abuse Patient Records regulations: The Federal rules restrict any use of the information to criminally investigate or prosecute any alcohol or drug abuse patient.[facility] HospitalIn the event this information is protected by the Federal Confidentiality of Alcohol and Drug Abuse Patient Records regulations: The Federal rules restrict any use of the information to criminally investigate or prosecute any alcohol or drug abuse patient.[facility] HospitalIn the event this information is protected by the Federal Confidentiality of Alcohol and Drug Abuse Patient Records regulations: The Federal rules restrict any use of the information to criminally investigate or prosecute any alcohol or drug abuse patient.[facility] HospitalIn the event this information is protected by the Federal Confidentiality of Alcohol and Drug Abuse Patient Records regulations: The Federal rules restrict any use of the information to criminally investigate or prosecute any alcohol or drug abuse patient.[facility] HospitalIn the event this information is protected by the Federal Confidentiality of Alcohol and Drug Abuse Patient Records regulations: The Federal rules restrict any use of the information to criminally investigate or prosecute any alcohol or drug abuse patient.[facility] HospitalIn the event this information is protected by the Federal Confidentiality of Alcohol and Drug Abuse Patient Records regulations: The Federal rules restrict any use of the information to criminally investigate or prosecute any alcohol or drug abuse patient.[facility] HospitalIn the event this information is protected by the Federal Confidentiality of Alcohol and Drug Abuse Patient Records regulations: The Federal rules restrict any use of the information to criminally investigate or prosecute any alcohol or drug abuse patient.[facility] HospitalIn the event this information is protected by the Federal Confidentiality of Alcohol and Drug Abuse Patient Records regulations: The Federal rules restrict any use of the information to criminally investigate or prosecute any alcohol or drug abuse patient.[facility] HospitalIn the event this information is protected by the Federal Confidentiality of Alcohol and Drug Abuse Patient Records regulations: The Federal rules restrict any use of the information to criminally investigate or prosecute any alcohol or drug abuse patient.[facility] HospitalIn the event this information is protected by the Federal Confidentiality of Alcohol and Drug Abuse Patient Records regulations: The Federal rules restrict any use of the information to criminally investigate or prosecute any alcohol or drug abuse patient.[facility] HospitalIn the event this information is protected by the Federal Confidentiality of Alcohol and Drug Abuse Patient Records regulations: The Federal rules restrict any use of the information to criminally investigate or prosecute any alcohol or drug abuse patient.[facility] HospitalIn the event this information is protected by the Federal Confidentiality of Alcohol and Drug Abuse Patient Records regulations: The Federal rules restrict any use of the information to criminally investigate or prosecute any alcohol or drug abuse patient.[facility] HospitalIn the event this information is protected by the Federal Confidentiality of Alcohol and Drug Abuse Patient Records regulations: The Federal rules restrict any use of the information to criminally investigate or prosecute any alcohol or drug abuse patient.[facility] HospitalIn the event this information is protected by the Federal Confidentiality of Alcohol and Drug Abuse Patient Records regulations: The Federal rules restrict any use of the information to criminally investigate or prosecute any alcohol or drug abuse patient.[facility] HospitalIn the event this information is protected by the Federal Confidentiality of Alcohol and Drug Abuse Patient Records regulations: The Federal rules restrict any use of the information to criminally investigate or prosecute any alcohol or drug abuse patient.[facility] HospitalIn the event this information is protected by the Federal Confidentiality of Alcohol and Drug Abuse Patient Records regulations: The Federal rules restrict any use of the information to criminally investigate or prosecute any alcohol or drug abuse patient.[facility] HospitalIn the event this information is protected by the Federal Confidentiality of Alcohol and Drug Abuse Patient Records regulations: The Federal rules restrict any use of the information to criminally investigate or prosecute any alcohol or drug abuse patient.[facility] HospitalIn the event this information is protected by the Federal Confidentiality of Alcohol and Drug Abuse Patient Records regulations: The Federal rules restrict any use of the information to criminally investigate or prosecute any alcohol or drug abuse patient.[facility] HospitalIn the event this information is protected by the Federal Confidentiality of Alcohol and Drug Abuse Patient Records regulations: The Federal rules restrict any use of the information to criminally investigate or prosecute any alcohol or drug abuse patient.[facility] HospitalIn the event this information is protected by the Federal Confidentiality of Alcohol and Drug Abuse Patient Records regulations: The Federal rules restrict any use of the information to criminally investigate or prosecute any alcohol or drug abuse patient.[facility] HospitalIn the event this information is protected by the Federal Confidentiality of Alcohol and Drug Abuse Patient Records regulations: The Federal rules restrict any use of the information to criminally investigate or prosecute any alcohol or drug abuse patient.[facility] HospitalIn the event this information is protected by the Federal Confidentiality of Alcohol and Drug Abuse Patient Records regulations: The Federal rules restrict any use of the information to criminally investigate or prosecute any alcohol or drug abuse patient.[facility] HospitalIn the event this information is protected by the Federal Confidentiality of Alcohol and Drug Abuse Patient Records regulations: The Federal rules restrict any use of the information to criminally investigate or prosecute any alcohol or drug abuse patient.[facility] HospitalIn the event this information is protected by the Federal Confidentiality of Alcohol and Drug Abuse Patient Records regulations: The Federal rules restrict any use of the information to criminally investigate or prosecute any alcohol or drug abuse patient.[facility] HospitalIn the event this information is protected by the Federal Confidentiality of Alcohol and Drug Abuse Patient Records regulations: The Federal rules restrict any use of the information to criminally investigate or prosecute any alcohol or drug abuse patient.[facility] HospitalIn the event this information is protected by [...] or prosecute any alcohol or drug abuse patient.[facility] HospitalIn the event this information is protected by the Federal Confidentiality of Alcohol and Drug Abuse Patient Records regulations: The Federal rules restrict any use of the information to criminally investigate or prosecute any alcohol or drug abuse patient.[facility] HospitalIn the event this information is protected by the Federal Confidentiality of Alcohol and Drug Abuse Patient Records regulations: The Federal rules restrict any use of the information to criminally investigate or prosecute any alcohol or drug abuse patient.[facility] HospitalIn the event this information is protected by the Federal Confidentiality of Alcohol and Drug Abuse Patient Records regulations: The Federal rules restrict any use of the information to criminally investigate or prosecute any alcohol or drug abuse patient.[facility] HospitalIn the event this information is protected by the Federal Confidentiality of Alcohol and Drug Abuse Patient Records regulations: The Federal rules restrict any use of the information to criminally investigate or prosecute any alcohol or drug abuse patient.[facility] HospitalIn the event this information is protected by the Federal Confidentiality of Alcohol and Drug Abuse Patient Records regulations: The Federal rules restrict any use of the information to criminally investigate or prosecute any alcohol or drug abuse patient.[facility] HospitalIn the event this information is protected by the Federal Confidentiality of Alcohol and Drug Abuse Patient Records regulations: The Federal rules restrict any use of the information to criminally investigate or prosecute any alcohol or drug abuse patient.[facility] HospitalIn the event this information is protected by the Federal Confidentiality of Alcohol and Drug Abuse Patient Records regulations: The Federal rules restrict any use of the information to criminally investigate or prosecute any alcohol or drug abuse patient.[facility] HospitalIn the event this information is protected by the Federal Confidentiality of Alcohol and Drug Abuse Patient Records regulations: The Federal rules restrict any use of the information to criminally investigate or prosecute any alcohol or drug abuse patient.[facility] HospitalIn the event this information is protected by the Federal Confidentiality of Alcohol and Drug Abuse Patient Records regulations: The Federal rules restrict any use of the information to criminally investigate or prosecute any alcohol or drug abuse patient.[facility] HospitalIn the event this information is protected by the Federal Confidentiality of Alcohol and Drug Abuse Patient Records regulations: The Federal rules restrict any use of the information to criminally investigate or prosecute any alcohol or drug abuse patient.[facility] HospitalIn the event this information is protected by the Federal Confidentiality of Alcohol and Drug Abuse Patient Records regulations: The Federal rules restrict any use of the information to criminally investigate or prosecute any alcohol or drug abuse patient.[facility] HospitalIn the event this information is protected by the Federal Confidentiality of Alcohol and Drug Abuse Patient Records regulations: The Federal rules restrict any use of the information to criminally investigate or prosecute any alcohol or drug abuse patient.[facility] HospitalIn the event this information is protected by the Federal Confidentiality of Alcohol and Drug Abuse Patient Records regulations: The Federal rules restrict any use of the information to criminally investigate or prosecute any alcohol or drug abuse patient.[facility] HospitalIn the event this information is protected by the Federal Confidentiality of Alcohol and Drug Abuse Patient Records regulations: The Federal rules restrict any use of the information to criminally investigate or prosecute any alcohol or drug abuse patient.[facility] HospitalIn the event this information is protected by the Federal Confidentiality of Alcohol and Drug Abuse Patient Records regulations: The Federal rules restrict any use of the information to criminally investigate or prosecute any alcohol or drug abuse patient.[facility] HospitalIn the event this information is protected by the Federal Confidentiality of Alcohol and Drug Abuse Patient Records regulations: The Federal rules restrict any use of the information to criminally investigate or prosecute any alcohol or drug abuse patient.[facility] HospitalIn the event this information is protected by the Federal Confidentiality of Alcohol and Drug Abuse Patient Records regulations: The Federal rules restrict any use of the information to criminally investigate or prosecute any alcohol or drug abuse patient.[facility] HospitalIn the event this information is protected by the Federal Confidentiality of Alcohol and Drug Abuse Patient Records regulations: The Federal rules restrict any use of the information to criminally investigate or prosecute any alcohol or drug abuse patient.[facility] HospitalIn the event this information is protected by the Federal Confidentiality of Alcohol and Drug Abuse Patient Records regulations: The Federal rules restrict any use of the information to criminally investigate or prosecute any alcohol or drug abuse patient.[facility] HospitalIn the event this information is protected by the Federal Confidentiality of Alcohol and Drug Abuse Patient Records regulations: The Federal rules restrict any use of the information to criminally investigate or prosecute any alcohol or drug abuse patient.[facility] HospitalIn the event this information is protected by the Federal Confidentiality of Alcohol and Drug Abuse Patient Records regulations: The Federal rules restrict any use of the information to criminally investigate or prosecute any alcohol or drug abuse patient.[facility] Reason for Visit (unrecogniz ed section and content) Specialty Diagnoses / Procedures Referred By Contac t Referred To Contact Physical Therapy / PHYSICAL THERAPY Diagnoses Plantar Fascial Fibromatosis Procedures NEW RS PT ORTH K Jose Ramon [place], [place] [address] [address] Nataliia Gutierrez PT Referral ID Status Reason Start Date Expiration Date V isits Requested Visits Authorized [id number] Authorized 04/28/2022 07/17/2022 99 99 Reason Onset [...] Telephonic CDM Outreach Reason Onset Date Comments Hedis Coordinator Chronic Care 03/08/2022 Reason Comments PT Eval [...] DIFFUSION CAPACITY (DLCO) DIFFUSING CAPACITY Soha Akhtar APRN.PROSTHETIC TECHNICIAN [address] [place] [address] Respiratory [place] [address] [place] [id number] Referral ID Status Reason Start Date Expiration Date V isits Requested Visits Authorized [id number] Closed Auto-Generate d Referral 10/15/2022 11/14/2023 1 1 Specialty Diagnoses / Procedures Referred By Contac t Referred To Contact [facility] Diagnoses COPD with chronic bronchitis Procedures SPIROMETRY BASELINE ONLY SPMTRY W/VC EXPIRATORY JOSÉ LUIS W/WO MXML VOL VNTJ Soha Akhtar, [employer].PROSTHETIC TECHNICIAN [address] [place] [address] Respiratory [place] [address] [place] [id number] Referral ID Status Reason Start Date Expiration Date V isits Requested Visits Authorized [id number] Closed Auto-Generate d Referral 10/15/2022 11/14/2023 1 [...] CT HEAD/BRAIN W/O CONTRAST MATERIAL Older, Sun, [employer].PROSTHETIC TECHNICIAN [address] [place] [address] Ct Imaging [id number] Referral ID Status Reason Start Date Expiration Date V isits Requested Visits Authorized [id number] Closed Auto-Generate d Referral 05/09/2023 06/07/2024 1 [...] BRAIN STEM W/O CONTRAST MATERIAL Older, Sun, [employer].PROSTHETIC TECHNICIAN [address] [place] [address] [place] [address] Referral ID Status Reason Start Date Expiration Date V isits Requested Visits Authorized [id number] Closed Auto-Generate d Referral 05/25/2023 06/23/2024 1 1 Reason Comments Fatigue Reason Onset Date Comments Community Monitoring Outreach 07/14/2023 Reason Onset Date Comments Community Monitoring Outreach 08/18/2023 Reason Onset Date Comments Refill Request 09/19/2023 Reason Onset Date Comments Community Monitoring Outreach 09/21/2023 Care Teams (unrecognized sec tion and content) Rn Patient Care Relationship Specialty Start Date End Date Jose Wolfe MD [address] [place] [address] PCP - General Internal Medicine 11/10/10 Tristian Monique, international managerHedis Coordinator Internal Medicine 11/24/20 Rn Patient Care Relationship Specialty Start Date End Date Jose Wolfe MD [address] [place] [address] PCP - General Internal Medicine 11/10/10 Tristian Monique, international managerHedis Coordinator Internal Medicine 11/24/20 Rn Patient Care Relationship Specialty Start Date End Date Jose Wolfe MD [address] [place] [address] PCP - General Internal Medicine 11/10/10 Tristian Monique, international managerHedis Coordinator Internal Medicine 11/24/20 Rn Patient Care Relationship Specialty Start Date End Date Jose Wolfe MD [address] [place] [address] PCP - General Internal Medicine 11/10/10 Tristian Monique, international managerHedis Coordinator Internal Medicine 11/24/20 Rn Patient Care Relationship Specialty Start Date End Date Jose Wolfe MD [address] [place] [address] PCP - General Internal Medicine 11/10/10 Tristian Monique, international managerHedis Coordinator Internal Medicine 11/24/20 Rn Patient Care Relationship Specialty Start Date End Date Jose Wolfe MD [address] [place] [address] PCP - General Internal Medicine 11/10/10 Tristian Monique, international managerHedis Coordinator Internal Medicine 11/24/20 Rn Patient Care Relationship Specialty Start Date End Date Jose Wolfe MD [address] [place] [address] PCP - General Internal Medicine 11/10/10 Tristian Monique, international managerHedis Coordinator Internal Medicine 11/24/20 Rn Patient Care Relationship Specialty Start Date End Date Jose Wolfe MD [address] [place] [address] PCP - General Internal Medicine 11/10/10 Tristian Monique, international managerHedis Coordinator Internal Medicine 11/24/20 Rn Patient Care Relationship Specialty Start Date End Date Jose Wolfe MD [address] [place] [address] PCP - General Internal Medicine 11/10/10 Tristian Monique, international managerHedis Coordinator Internal Medicine 11/24/20 Rn Patient Care Relationship Specialty Start Date End Date Jose Wolfe MD [address] [place] [address] PCP - General Internal Medicine 11/10/10 Dylon Lubin, international managerHedis Coordinator Internal Medicine 11/24/20 Rn Patient Care Relationship Specialty Start Date End Date Jose Wolfe MD [address] [place] [address] PCP - General Internal Medicine 11/10/10 Dylon Lubin, international managerHedis Coordinator Internal Medicine 11/24/20 Rn Patient Care Relationship Specialty Start Date End Date Jose Wolfe MD [address] [place] [address] PCP - General Internal Medicine 11/10/10 Dylon Lubin, international managerHedis Coordinator Internal Medicine 11/24/20 Rn Patient Care Relationship Specialty Start Date End Date Jose Wolfe MD [address] [place] [address] PCP - General Internal Medicine 11/10/10 Dylon Lubin, international managerHedis Coordinator Internal Medicine 11/24/20 Rn Patient Care Relationship Specialty Start Date End Date Jose Wolfe MD [address] [place] [address] PCP - General Internal Medicine 11/10/10 Dylon Lubin, international managerHedis Coordinator Internal Medicine 11/24/20 Rn Patient Care Relationship Specialty Start Date End Date Jose Wolfe MD [address] [place] [address] PCP - General Internal Medicine 11/10/10 Dylon Lubin, international managerHedis Coordinator Internal Medicine 11/24/20 Rn Patient Care Relationship Specialty Start Date End Date Jose Wolfe MD [address] [place] [address] PCP - General Internal Medicine 11/10/10 Dylon Lubin, international managerHedis Coordinator Internal Medicine 11/24/20 Rn Patient Care Relationship Specialty Start Date End Date Jose Wolfe MD [address] [place] [address] PCP - General Internal Medicine 11/10/10 Dylon Lubin, international managerHedis Coordinator Internal Medicine 11/24/20 Rn Patient Care Relationship Specialty Start Date End Date Jose Wolfe MD [address] [place] [address] PCP - General Internal Medicine 11/10/10 Dylon Lubin, international managerHedis Coordinator Internal Medicine 11/24/20 Rn Patient Care Relationship Specialty Start Date End Date Jose Wolfe MD [address] [place] [address] PCP - General Internal Medicine 11/10/10 Dylon Lubin, international managerHedis Coordinator Internal Medicine 11/24/20 Rn Patient Care Relationship Specialty Start Date End Date Jose Wolfe MD [address] [place] [address] PCP - General Internal Medicine 11/10/10 Dylon Lubin, international managerHedis Coordinator Internal Medicine 11/24/20 Rn Patient Care Relationship Specialty Start Date End Date Jose Wolfe MD [address] [place] [address] PCP - General Internal Medicine 11/10/10 Dylon Lubin, international managerHedis Coordinator Internal Medicine 11/24/20 Rn Patient Care Relationship Specialty Start Date End Date Jose Wolfe MD [address] [place] [address] PCP - General Internal Medicine 11/10/10 Dylon Lubin, international managerHedis Coordinator Internal Medicine 11/24/20 Rn Patient Care Relationship Specialty Start Date End Date Jose Wolfe MD [address] [place] [address] PCP - General Internal Medicine 11/10/10 Dylon Lubin, international managerHedis Coordinator Internal Medicine 11/24/20 Rn Patient Care Relationship Specialty Start Date End Date Jose Wolfe MD [address] [place] [address] PCP - General Internal Medicine 11/10/10 Dylon Lubin, international managerHedis Coordinator Internal Medicine 11/24/20 Rn Patient Care Relationship Specialty Start Date End Date Jose Wolfe MD [address] [place] [address] PCP - General Internal Medicine 11/10/10 Dylon Lubin, international managerHedis Coordinator Internal Medicine 11/24/20 Rn Patient Care Relationship Specialty Start Date End Date Jose Wolfe MD [address] [place] [address] PCP - General Internal Medicine 11/10/10 Dylon Lubin, international managerHedis Coordinator Internal Medicine 11/24/20 Rn Patient Care Relationship Specialty Start Date End Date Jose Wolfe MD [address] [place] [address] PCP - General Internal Medicine 11/10/10 Dylon Lubin, international managerHedis Coordinator Internal Medicine 11/24/20 Rn Patient Care Relationship Specialty Start Date End Date Jose Wolfe MD [address] [place] [address] PCP - General Internal Medicine 11/10/10 Dylon Lubin, international managerHedis Coordinator Internal Medicine 11/24/20 Rn Patient Care Relationship Specialty Start Date End Date Jose Wolfe MD [address] [place] [address] PCP - General Internal Medicine 11/10/10 Dylon Lubin, international managerHedis Coordinator Internal Medicine 11/24/20 Rn Patient Care Relationship Specialty Start Date End Date Jose Wolfe MD [address] [place] [address] PCP - General Internal Medicine 11/10/10 Dylon Lubin, international managerHedis Coordinator Internal Medicine 11/24/20 Rn Patient Care Relationship Specialty Start Date End Date Jose Wolfe MD [address] [place] [address] PCP - General Internal Medicine 11/10/10 Dylon Lubin, international managerHedis Coordinator Internal Medicine 11/24/20 Rn Patient Care Relationship Specialty Start Date End Date Jose Wolfe MD [address] [place] [address] PCP - General Internal Medicine 11/10/10 Dylon Lubin, international managerHedis Coordinator Internal Medicine 11/24/20 Rn Patient Care Relationship Specialty Start Date End Date Jose Wolfe MD [address] [place] [address] PCP - General Internal Medicine 11/10/10 Dylon Lubin, international managerHedis Coordinator Internal Medicine 11/24/20 Rn Patient Care Relationship Specialty Start Date End Date Jose Wolfe MD [address] [place] [address] PCP - General Internal Medicine 11/10/10 Dylon Lubin, international managerHedis Coordinator Internal Medicine 11/24/20 Rn Patient Care Relationship Specialty Start Date End Date Jose Wolfe MD [address] [place] [address] PCP - General Internal Medicine 11/10/10 Dylon Lubin, international managerHedis Coordinator Internal Medicine 11/24/20 Rn Patient Care Relationship Specialty Start Date End Date Jose Wolfe MD [address] [place] [address] PCP - General Internal Medicine 11/10/10 Dylon Lubin, international managerHedis Coordinator Internal Medicine 11/24/20 Rn Patient Care Relationship Specialty Start Date End Date Jose Wolfe MD [address] [place] [address] PCP - General Internal Medicine 11/10/10 Dylon Lubin RN Hedis Coordinator Internal Medicine 11/24/20 Rn Patient Care Relationship Specialty Start Date End Date Jose Wolfe MD [address] [place] [address] PCP - General Internal Medicine 11/10/10 Dylon Lubin RN Hedis Coordinator Internal Medicine 11/24/20 Rn Patient Care Relationship Specialty Start Date End Date Jose Wolfe MD [address] [place] [address] PCP - General Internal Medicine 11/10/10 Dylon Lubin RN Hedis Coordinator Internal Medicine 11/24/20 FOR RECORDS PERTAINING TO [...] BE BASED ON THE PRIMARY CLINICAL RECORDS. [facility] [employer] [facility]. provides no warranty or guarantee of the accuracy or completeness of information in this document.
[2023-09-24 23:40] LABS: CPK Total, Creatine Kinase 141 U/L (39-308); Ferritin 75 ng/mL (26-388); LDH 207 U/L (87-241); Magnesium 2.2 mg/dL (1.6-2.6)
[2023-09-25] VITALS (9 sets, daily range): BP systolic 91–153; BP diastolic 48–76; PULSE 58–72; RESP 17–18; TEMP 36.4–37.5; O2SAT 94–99; BMI 29.2
[2023-09-25 00:44] LABS: Procalcitonin 0.08 ng/mL (0.00-0.09)
[2023-09-25] MEDS: 0.9% Normal Saline (1000mL) 1,000 ML 75 ML IV (01:17)
[2023-09-25] MEDS: dexAMETHasone 4 MG/ML Vial 6 MG IV ×2 (01:17→09:48)
[2023-09-25 06:53] LABS: Absolute Lymphocyte Count 0.54 X10^3/uL (0.83-4.51); Absolute Neutrophil Count 3.1 X10^3/uL (2.0-7.7); Basophil# 0.01 X10^3/uL; Basophil% 0.3 % (0-1); Hematocrit 41.3 % (40-54); Hemoglobin 14.2 g/dL (13.0-16.5); Lymphocyte # 0.54 X10^3/ul (0.83-4.51); Lymphocyte % 14.4 % (19-41); Mean Corp Hgb Conc 34.4 g/dL (32-36); Mean Corpuscular Hgb 33.7 pg (27.0-32.0); Mean Corpuscular Volume 98.1 fL (80-94); Mean Platelet Vol. 10.4 fl (6.2-12.0); Monocyte# 0.07 X10^3/uL; Monocyte% 1.9 % (0-10); NRBC Flagged by Analyzer 0 % (0-5); Neutrophil % 82.9 % (47-70); POSITIVE DIFFERENTIAL YES; Platelet Count 109 K/mm3 (150-450); RBC Distribution Width CV 13.1 % (11.6-14.6); RBC Distribution Width SD 46.2 fl (35.1-43.9); Red Blood Count 4.21 M/mm3 (4.6-6.2); White Blood Count 3.7 K/mm3 (4.4-11.0)
[2023-09-25] MEDS: Budesonide Respules 0.5 MG/2 ML AMPUL.NEB. INHALATION (07:13)
--- NOTE | 2023-09-25 08:21 | PCM.PN.HOSP ---
Reason for Visit Reason for Visit: Diagnoses Urinary tract infection, site not specified (09/24/23) COVID-19 (09/24/23) Subjective Subjective Patient is an 83-year-old gentleman with multiple comorbidities admitted with a 2-week history of cough sore throat weakness and dizziness. Workup in the ED came back positive for COVID 19 admitted to regular nursing floor for further management Objective Data Objective Data Vital Signs: Vital Signs Temp Pulse Resp BP Pulse Ox O2 Del Method O2 Flow Rate 97.8 F 72 17 153/76 H 94 Nasal Cannula 2 09/25/23 04:52 09/25/23 07:46 09/25/23 07:46 09/25/23 04:52 09/25/23 07:45 09/25/23 07:45 09/25/23 07:45 Oxygen Flow Rate (L/min) 2 Oxygen Delivery Method Nasal Cannula Weight: 82.1 kg Body Mass Index (BMI) 29.2 Intake & Output: Intake and Output for Last 24 Hours 09/23/23 09/24/23 09/26/23 23:59 23:59 00:59 Intake Total 1050 / 1050 100 / 100 Balance 1050 / 1050 100 / 100 Lab / Micro Data 09/25/23 06:20 09/24/23 20:25 Labs: Laboratory Results - last 24 hr 09/24/23 20:25: WBC 6.0, RBC 4.59 L, Hgb 15.4, Hct 44.9, MCV 97.8 H, MCH 33.6 H, MCHC 34.3, RDW Std Deviation 47.4 H, RDW Coeff of Randall 13.2, Plt Count 124 L, MPV 10.7, Immature Gran % (Auto) 0.300, Neut % (Auto) 72.3 H, Lymph % (Auto) 13.6 L, [place] % (Auto) 13.3 H, Eos % (Auto) 0.2, Baso % (Auto) 0.3, Absolute Neuts (auto) 4.3, Absolute Lymphs (auto) 0.81 L, Nucleated RBC % 0, ESR 6, D-Dimer Quant (PE/DVT) 0.32, Sodium 134 L, Potassium 4.1, Chloride 102, Carbon Dioxide 26.0, Anion Gap 6, BUN 14, Creatinine 1.09, Estim Creat Clear Calc 50.46, Est GFR (MDRD) Af Amer 83, Est GFR (MDRD) Non-Af 69, BUN/Creatinine Ratio 12.8, Glucose 100, Calcium 8.7, Magnesium 2.2, Ferritin 75, Total Bilirubin 1.40 H, AST 21, ALT 26, Alkaline Phosphatase 121 H, Lactate Dehydrogenase 207, Total Creatine Kinase 141, Troponin I High Sens 11, C-React Prot Ext Range 11.70 H, B-Natriuretic Peptide 109.0 H, Total Protein 6.8, Albumin 3.6, Globulin 3.2, Albumin/Globulin Ratio 1.1, Lipase 47, Urine Color Yellow, Urine Clarity Sl. Cloudy, Urine pH 6.0, Ur Specific [place] 1.015, Urine Protein 30 H, Urine Glucose (UA) Normal, Urine Ketones 15 H, Urine Occult Blood 50 H, Urine Nitrite Positive H, Urine Bilirubin Negative, Urine Urobilinogen 8 H, Ur Leukocyte Esterase 100 H, Urine RBC 10-25 SEEN, Urine WBC 10-25 SEEN, Ur Squamous Epith Cells 0 SEEN, Urine Bacteria 2+, Urine Mucus 0 SEEN 09/24/23 20:50: Lactic Acid 1.1 09/24/23 23:40: Procalcitonin 0.08 09/25/23 06:20: WBC 3.7 L, RBC 4.21 L, Hgb 14.2, Hct 41.3, MCV 98.1 H, MCH 33.7 H, MCHC 34.4, RDW Std Deviation 46.2 H, RDW Coeff of Randall 13.1, Plt Count 109 L, MPV 10.4, Immature Gran % (Auto) 0.500, Neut % (Auto) 82.9 H, Lymph % (Auto) 14.4 L, [place] % (Auto) 1.9, Eos % (Auto) 0.0, Baso % (Auto) 0.3, Absolute Neuts (auto) 3.1, Absolute Lymphs (auto) 0.54 L, Nucleated RBC % 0 Micro: Microbiology 09/24/23 20:25 Mucosa - Nose SARS-CoV-2, Influenza & RSV (PCR) - Final SARS-CoV-2 (COVID 19) Radiography Diagnostic Testing: Radiology Impression Brain CT 09/24/23 20:27 IMPRESSION: No acute intracranial abnormality. Electronically Signed: Joe Chauhan DO at 22:27 EST , Chest X-Ray 09/24/23 21:11 IMPRESSION: Poor inspiration with some bibasilar atelectasis. Electronically Signed: Ronnie Gonzalez MD at 21:55 EST , Physical Exam Narrative GENERAL: cooperative HEENT: Atraumatic; normocephalic EYES; Anicteric, Normal Conjunctiva NECK; supple, normal thyroid, RESPIRATORY: Diminished to auscultation CARDIOVASCULAR: Regular S1 S2, GI: soft, normoactive bowel sounds, : No Renal angle tenderness; EXTREMITIES: No edema, no clubbing, MUSCULOSKELETAL: no muscle wasting NEURO: Awake; no lateralizing signs. SKIN: No Rash PSYCH; Flat affect Assessment & Plan Assessment/Plan (1) COVID-19: (2) Acute UTI: PLAN: Plan Patient is an 83-year-old gentleman with multiple comorbidities admitted with a 2-week history of cough sore throat weakness and dizziness. Workup in the ED came back positive for COVID 19 admitted to regular nursing floor for further management 1. Acute COVID-19 infection ? Patient admitted to regular nursing floor. Patient was started on supplemental oxygen as well asDecadron in addition to symptomatic treatment 2. Acute cystitis ? Patient started on ceftriaxone cultures sent we will follow-up on result 4. Coronary artery disease ? With previous history of CABG as well as PCI with CHAD. Patient remains on guideline directed medical therapy 5. Thrombocytopenia ? Chronic monitoring with daily CBC with differential 6. Paroxysmal A-fib ? Rate controlled on sotalol and systemic anticoagulation with apixaban continue 7. GERD ? Patient is on Protonix did continue 8. Chronic congestive heart failure with preserved ejection fraction. ? Patient remains euvolemic on furosemide: 03/31/2022 echocardiogram with normal LV size, LV systolic function normal, EF 60%, mild concentric LVH, 9. Dyslipidemia -Patient is on statin therapy, continued at home dose 10. BPH with lower urinary obstructive symptoms - Patient treated with tamsulosin 11. Mild hyponatremia ? Secondary to hypovolemic hyponatremia monitoring with daily BMPs 12. Depression ? Patient is on bupropion 13. Diarrhea ? May be related to patient COVID however did send for stool for C. difficile 14 DVT prophylaxis ? Patient is on apixaban Time spent in the patient's overall evaluation,decision-making process, review of diagnostic data, adjustment of management, discussion with other providers, nursing nursing and ancillary staff involved in patient's care documentation, 50 Minutes Charges/Coding Visit Charges Inpatient E&M: 14921 [facility] Hosp L3
[2023-09-25 08:30] LABS: AST(SGOT) 17 U/L (15-37); Alanine Aminotransfer ALT/SGPT 23 U/L (16-61); Albumin, Serum 3.1 g/dL (3.2-5.0); Alkaline Phosphatase 102 U/L (45-117); Anion Gap 4 (5-15); BUN 12 mg/dL (7-18); BUN/Creat Ratio 12.5 RATIO (10-20); Calcium,Total 8.4 mg/dL (8.5-10.1); Chloride 106 mmol/L (98-107); Creatinine, Serum 0.96 mg/dL (0.70-1.30); EST Glomerular Filtration Rate 79 mL/min (>60); Est Glom Filt Rate - Afr Amer 96 mL/min (>60); Estimated Creatinine Clearance 58.65 ml/min; Glucose 165 mg/dL (74-106); Potassium 4.5 mmol/L (3.5-5.1); Protein, Total 6.1 g/dL (6.4-8.2); Sodium Level 135 mmol/L (136-145)
[2023-09-25] MEDS: Sotalol Hydrochloride 80 MG Tablet 120 MG PO ×2 (09:46→23:15)
[2023-09-25] MEDS: Ferrous Sulfate 325 MG Tablet PO (09:46)
[2023-09-25] MEDS: Menthol/Lanolin/Calamine/Znox 113 GM Tube 1 APPLIC TOPICAL ×3 (09:47→23:16)
[2023-09-25] MEDS: APIXABAN 5 MG TABLET PO ×2 (09:50→23:15)
[2023-09-25] MEDS: Tamsulosin HCl 0.4 MG Capsule 0.400000000000000022 MG PO (09:50)
[2023-09-25] MEDS: Pantoprazole Sodium 40 MG Tablet PO (09:51)
[2023-09-25] MEDS: Furosemide 40 MG Tablet PO (09:51)
[2023-09-25] MEDS: Isosorbide Mononitrate 30 MG Tablet PO (09:51)
[2023-09-25] MEDS: buPROPion (SR) 100 MG TABLET.SA PO (09:52)
[2023-09-25] MEDS: Atorvastatin Calcium 80 MG Tablet PO (23:15)
[2023-09-25] MEDS: Ceftriaxone 1 GM/50 ML BAG IV (23:16)
[2023-09-26] VITALS (9 sets, daily range): BP systolic 110–144; BP diastolic 54–82; PULSE 52–62; RESP 14–20; TEMP 36.6–36.8; O2SAT 93–96; BMI 29.2
[2023-09-26 07:48] LABS: Absolute Lymphocyte Count 1.14 X10^3/uL (0.83-4.51); Absolute Neutrophil Count 9.5 X10^3/uL (2.0-7.7); Basophil# 0.01 X10^3/uL; Basophil% 0.1 % (0-1); Hematocrit 39.7 % (40-54); Hemoglobin 13.7 g/dL (13.0-16.5); Lymphocyte # 1.14 X10^3/ul (0.83-4.51); Lymphocyte % 9.5 % (19-41); Mean Corp Hgb Conc 34.5 g/dL (32-36); Mean Corpuscular Hgb 34.2 pg (27.0-32.0); Mean Platelet Vol. 10.7 fl (6.2-12.0); Monocyte% 10.8 % (0-10); NRBC Flagged by Analyzer 0 % (0-5); Neutrophil # 9.52 X10^3/uL (2.7-7.7); Neutrophil % 79.2 % (47-70); Platelet Count 131 K/mm3 (150-450); RBC Distribution Width CV 13.2 % (11.6-14.6); RBC Distribution Width SD 48.2 fl (35.1-43.9); Red Blood Count 4.01 M/mm3 (4.6-6.2)
[2023-09-26] MEDS: Budesonide Respules 0.5 MG/2 ML AMPUL.NEB. INHALATION (08:04)
[2023-09-26 08:13] LABS: Anion Gap 5 (5-15); BUN 21 mg/dL (7-18); BUN/Creat Ratio 20.2 RATIO (10-20); Chloride 104 mmol/L (98-107); Creatinine, Serum 1.04 mg/dL (0.70-1.30); EST Glomerular Filtration Rate 72 mL/min (>60); Est Glom Filt Rate - Afr Amer 88 mL/min (>60); Glucose 124 mg/dL (74-106); Magnesium 2.3 mg/dL (1.6-2.6); Phosphorus 3.2 mg/dL (2.5-4.9); Potassium 4.4 mmol/L (3.5-5.1); Sodium Level 134 mmol/L (136-145)
[2023-09-26] MEDS: guaiFENesin 10 ML UDC (200MG/10ML) 20 ML PO (11:42)
[2023-09-26] MEDS: Sotalol Hydrochloride 80 MG Tablet 120 MG PO (11:43)
[2023-09-26] MEDS: Pantoprazole Sodium 40 MG Tablet PO (11:44)
[2023-09-26] MEDS: Tamsulosin HCl 0.4 MG Capsule 0.400000000000000022 MG PO (11:44)
[2023-09-26] MEDS: APIXABAN 5 MG TABLET PO (11:44)
[2023-09-26] MEDS: Ferrous Sulfate 325 MG Tablet PO (11:44)
[2023-09-26] MEDS: Isosorbide Mononitrate 30 MG Tablet PO (11:44)
[2023-09-26] MEDS: Furosemide 40 MG Tablet PO (11:44)
[2023-09-26] MEDS: buPROPion (SR) 100 MG TABLET.SA PO (11:44)
[2023-09-26] MEDS: dexAMETHasone 4 MG/ML Vial 6 MG IV (11:45)
[2023-09-26] MEDS: 0.9% Saline Lock 10 ML Syringe IV (11:45)
[2023-09-26] MEDS: Albuterol 2.5 MG/3 ML VIAL.NEB. INHALATION (13:16)
--- NOTE | 2023-09-26 14:20 | CASEMGMT ---
Addendum entered by Rebecca Monreal 09/26/23 15:59: Pt does not qualify for home oxygen. Original Note: NIVIA COLE Assessment: Face to Face with pt for initial transition planning/care coordination assessment. NIVIA COLE introduced self and role at [facility], pt voices understanding and consents to assessment. Pt is A&O x4 and answers all questions appropriately at this time. Pt sitting up in chair on RA in no distress with at bedside. Care providers, pharmacy, and demographics verified/updated. Admitting Dx: COVID, UTI, Adult FTT PCP:Aiden Specialists:Romero, cardio; Jamey, neuro Preferred Pharmacy: [facility] Insurance: [employer], [employer] other Prescription Benefit: no LNOK: Marilee Ramos, ; Kristel Miller, dtr Living Arrangements: Pt lives with in a two story home with 8 steps to enter with railing. Pt reports he was I in ADL's prior to this hospitalization. Pt denies concerns at home. Transportation: Pt transports pt to medical appts. DME:cane- uses sometimes to check mail, mostly to let people know he is legally blind; walker- doesn't use HHC/SNF: Pt thinks he has had [facility] HHC in the past, denies SNF stays. Pt states no concerns with going home at time of dc. Pt denies need for any home therapy although he does talk about needing to build his strength back. Discussed HH SN and therapy, pt declines. Pt states he will build his strength on his own. Pt states no further concerns/needs. CM to follow. Advised pt to ask CM if any further question/concerns/needs arise, voices understanding. Pt Goal: Home Plan: Home Elliot GONZÁLES CM
--- NOTE | 2023-09-26 15:18 | DS.PCM_ITS ---
Providers Date of Admission: 09/24/23 Date of Discharge: 09/26/23 Primary Care Physician: Dr. Jose Wolfe MD Reason For Visit: COVID, UTI, ADULT FTT Diagnosis Discharge Diagnosis (1) COVID-19: Status: Acute Code(s): U07.1 - COVID-19 (2) Acute UTI: Status: Acute Code(s): N39.0 - Urinary tract infection, site not specified Medications at Discharge Home Medications tamsulosin 0.4 mg capsule 0.4 mg PO DAILY prostate 05/23/13 fluticasone furoate 100 mcg-vilanterol 25 mcg/dose inhalation powder (Breo Ellipta) 1 inh inhalation DAILY 12/24/21 pantoprazole 40 mg tablet,delayed release (Protonix) 40 mg PO DAILY #60 tabs 07/14/22 alprazolam 1 mg tablet 1 mg PO ONCE #1 TAB 02/01/23 isosorbide mononitrate 30 mg tablet,extended release 24 hr 30 mg PO DAILY #90 tabs 02/23/23 nitroglycerin 0.4 mg sublingual tablet 0.4 mg sublingual Q5M PRN Chest Pain #25 tabs 02/23/23 sotalol 120 mg tablet 120 mg PO BID heart/blood pressure #180 tabs 02/23/23 furosemide 40 mg tablet 40 mg PO DAILY #90 tabs 03/23/23 atorvastatin 80 mg tablet See Rx Instructions .Route .COMPLEX #90 tabs 05/09/23 apixaban 5 mg tablet (Eliquis) 5 mg PO BID #180 tabs 06/07/23 ferrous sulfate 325 mg (65 mg iron) tablet 325 mg PO DAILY #30 tabs 06/14/23 albuterol sulfate 90 mcg/actuation aerosol inhaler 1 puff inhalation Q4H PRN shortness of breath or wheezing 09/24/23 bupropion HCl 100 mg tablet,12 hr sustained-release 100 mg PO DAILY 09/24/23 cephalexin 500 mg capsule 500 mg PO BID #16 caps 09/26/23 Hospital Course Summary of Care Provided Minutes Spent on Discharge: 37 Hospital Course: Mr. Ramos is an 83-year-old white male who presented to the emergency department at [facility] on 09/24/2023 with cough, dyspnea, fatigue, malaise, and worsening weakness. He had a near syncopal event recently and he lives with his who has been ill as well. Her symptoms have not been as pronounced but she has difficulty caring for him and herself. She brought him for the emergency department for further evaluation. His cough has been productive but of clear sputum. Vital signs on presentation were overtly unremarkable. His CBC was overall unremarkable. His CMP showed mild hyponatremia the sodium of 134. His lactic acid was normal at 1.1. His total bili was mildly elevated at 1.4 but LFTs are otherwise unremarkable. His lipase was 47. Initial troponin was 11. Urinalysis was suggestive of some dehydration and infection. Blood cultures and urine cultures were sent and he was started on antibiotics. Rapid COVID, influenza, and RSV panel was also performed and was noted to be positive for COVID-19 infection. His chest x-ray showed poor inspiratory infiltrate and some bibasilar atelectasis. CT of the brain was unremarkable. EKG was unremarkable. He was given IV fluids, Solu-Medrol, IV Rocephin and Zofran in the emergency department and was admitted to the medical floor. He was placed on Decadron as initially he had some mild hypoxemia however this resolved quite quickly and maintained on ceftriaxone. PT and Occupational Therapy were consulted to evaluate the patient as well. Overall clinically he did quite well. He was on room air and an ambulatory pulse ox noted that he did not require any ongoing oxygen with rest or exertion at the time of discharge. Given this the Decadron was discontinued. His blood cultures were no growth to date and his urine culture showed coag negative staph at greater than 100,000 CFU's per high-powered field so he was maintained on antibiotics. He was transition to Keflex 500 mg p.o. twice daily to complete a total of a 10-day course at the time of discharge. Initially, therapy services thought he may need some extra therapy at discharge however he was able to ambulate without any significant difficulty on 09/26/2023. His witnessed his ambulation and thought he did quite well and felt that he was doing better than prior to coming to the emergency department. She felt that he was safe to go home and they both requested discharge. With him being clinically stable on room air and no significant lab abnormalities we felt he was stable for discharge on 09/26/2023. I have asked that he follow-up with his primary care physician within the next 1 to 2 weeks. We have asked him to wear a mask for the next 5 days when he is around people to avoid spreading any further infection. Discharge diagnoses: Acute COVID-19 infection Coag negative staph urinary tract infection Generalized weakness-resolved Mild hyponatremia Leukocytosis secondary to demargination on steroids Chronic thrombocytopenia HFpEF-chronic CAD PAF HTN HPL BPH with obstruction History of stroke/TIA [place] History of tobacco abuse Anxiety Depression Physical Exam Const alert, oriented x3, no apparent distress, no limitations and well nourished Constitutional Narrative: Elderly, overweight, white male, sitting up in a chair at the bedside, at bedside, appears comfortable and nontoxic, on room air General Appearance: cooperative, comfortable, well kempt and well developed Orientation / Consciousness: awake, oriented to person, oriented to place and oriented to time Exam Limitations: no limitations Nutritional Appearance: overweight HEENT normocephalic, head/scalp atraumatic and moist oral mucous membranes HEENT Narrative: Mild to moderate hearing loss, dentures in place, Mallampati 3, no thrush Eyes PERRL, EOMs intact bilaterally and conjunctivae normal Eyes Narrative: No scleral icterus Neck no lymphadenopathy and supple Neck Narrative: Trachea midline, no thyroid enlargement Resp normal respiratory effort, no retractions, no use of accessory muscles and clear to auscultation bilaterally Auscultation: Negative for rales, rhonchi or wheezes Cardio regular rate, regular rhythm, S1 normal heart sound, S2 normal heart sound, no murmurs, no rub, no gallops and no clicks GI normal to inspection, nondistended, normoactive bowel sounds, soft to palpation and non-tender Extremity no clubbing, cyanosis or edema Extremity Narrative: Pedal pulses and radial pulses are 2+ Skin no rashes or lesions noted, no wounds, skin turgor normal and no jaundice Neuro oriented x3, moves all extremities, no focal motor deficits and no sensory deficits noted Speech: speech normal Psych affect normal Psych Narrative: Eye contact is good, patient interacts appropriately Weight / BMI Weight Weight: 82.3 kg Body Mass Index (BMI) 29.2 ABG / Lab / Microbiology Data 09/26/23 07:22 09/26/23 07:22 Laboratory: Laboratory Results - last 24 hr 09/26/23 07:22: WBC 12.0 H, RBC 4.01 L, Hgb 13.7, Hct 39.7 L, MCV 99.0 H, MCH 34.2 H, MCHC 34.5, RDW Std Deviation 48.2 H, RDW Coeff of [place] 13.2, Plt Count 131 L, MPV 10.7, Immature Gran % (Auto) 0.400, Neut % (Auto) 79.2 H, Lymph % (Auto) 9.5 L, [place] % (Auto) 10.8 H, Eos % (Auto) 0.0, Baso % (Auto) 0.1, Absolute Neuts (auto) 9.5 H, Absolute Lymphs (auto) 1.14, Nucleated RBC % 0, Sodium 134 L, Potassium 4.4, Chloride 104, Carbon Dioxide 25.0, Anion Gap 5, BUN 21 H, Creatinine 1.04, Estim Creat Clear Calc 54.20, Est GFR (MDRD) Af Amer 88, Est GFR (MDRD) Non-Af 72, BUN/Creatinine Ratio 20.2 H, Glucose 124 H, Calcium 9.0, Phosphorus 3.2, Magnesium 2.3 Microbiology: Microbiology 09/24/23 22:00 Urine Catheter - Catheter Urine Culture - Preliminary Coag Negative Staph 09/24/23 20:25 Mucosa - Nose SARS-CoV-2, Influenza & RSV (PCR) - Final SARS-CoV-2 (COVID 19) D/C Instructions Discharge Diet: Low fat / Low cholesterol Discharge Activity: Return to Normal Activity (Please wear a mask around people for the next 5 days) Meaningful Use Info Meaningful Use Diagnoses (Choose all that apply): None applicable Discharge Plan Admission Admit Date/Time: 09/24/23 22:15 Primary Reason for Your Visit: Cough/shortness of breath/fatigue/malaise Attending Provider: Kimi London Primary Care Provider: Jose Wolfe Consulting Providers: Khushboo Brown; Mati Oneill Instructions Additional Instructions / Restrictions: 1. Please wear a mask when around people for the next 5 days. Discharge Orders/Prescriptions Prescriptions: New cephalexin 500 mg capsule 500 mg PO BID Qty: 16 0RF Continued fluticasone furoate-vilanterol [Breo Ellipta] 100-25 mcg/dose blister with device 1 inh inhalation DAILY alprazolam 1 mg tablet 1 mg PO ONCE Qty: 1 0RF Rx Instructions: Take 30 minutes prior to MRI. ferrous sulfate 325 mg (65 mg iron) tablet 325 mg PO DAILY Qty: 30 6RF tamsulosin 0.4 MG capsule 0.4 mg PO DAILY pantoprazole [Protonix] 40 mg tablet,delayed release (DR/EC) 40 mg PO DAILY Qty: 60 1RF albuterol sulfate 90 mcg/actuation HFA aerosol inhaler 1 puff inhalation Q4H PRN (Reason: shortness of breath or wheezing) bupropion HCl 100 mg tablet sustained-release 12 hr 100 mg PO DAILY isosorbide mononitrate 30 mg tablet extended release 24 hr 30 mg PO DAILY Qty: 90 4RF nitroglycerin 0.4 mg tablet, sublingual 0.4 mg SUBLINGUAL Q5M PRN (Reason: Chest Pain) Qty: 25 4RF Rx Instructions: Place one tab under tongue every 5 minutes x 3 doses as needed sotalol 120 mg tablet 120 mg PO BID Qty: 180 3RF furosemide 40 mg tablet 40 mg PO DAILY Qty: 90 3RF atorvastatin 80 mg tablet See Rx Instructions .ROUTE .COMPLEX Qty: 90 3RF Dose Instruction: TAKE 1 TABLET DAILY FOR CHOLESTEROL Rx Instructions: TAKE 1 TABLET DAILY FOR CHOLESTEROL Eliquis 5 mg tablet 5 mg PO BID Qty: 180 4RF Referrals / Follow Up: Jose Wolfe MD [Primary Care Provider] - Within 1 Week Disposition Disposition (needs filled in before D/C Order can be placed): Home, Self Care Charges/Coding Visit Charges Inpatient E&M: 18541 Disch Hosp >30min
--- NOTE | 2023-09-26 15:25 | PHA.DC.MR.R ---
Pharmacy [place] Med Reconciliation Pharmacy Service has performed discharge medication reconciliation for this patient. The patient's discharge medication list was reviewed for discrepancies and discrepancies were resolved. Medications at Discharge Home Medications tamsulosin 0.4 mg capsule 0.4 mg PO DAILY prostate 05/23/13 fluticasone furoate 100 mcg-vilanterol 25 mcg/dose inhalation powder (Breo Ellipta) 1 inh inhalation DAILY 12/24/21 pantoprazole 40 mg tablet,delayed release (Protonix) 40 mg PO DAILY #60 tabs 07/14/22 alprazolam 1 mg tablet 1 mg PO ONCE #1 TAB 02/01/23 isosorbide mononitrate 30 mg tablet,extended release 24 hr 30 mg PO DAILY #90 tabs 02/23/23 nitroglycerin 0.4 mg sublingual tablet 0.4 mg sublingual Q5M PRN Chest Pain #25 tabs 02/23/23 sotalol 120 mg tablet 120 mg PO BID heart/blood pressure #180 tabs 02/23/23 furosemide 40 mg tablet 40 mg PO DAILY #90 tabs 03/23/23 atorvastatin 80 mg tablet See Rx Instructions .Route .COMPLEX #90 tabs 05/09/23 apixaban 5 mg tablet (Eliquis) 5 mg PO BID #180 tabs 06/07/23 ferrous sulfate 325 mg (65 mg iron) tablet 325 mg PO DAILY #30 tabs 06/14/23 albuterol sulfate 90 mcg/actuation aerosol inhaler 1 puff inhalation Q4H PRN shortness of breath or wheezing 09/24/23 bupropion HCl 100 mg tablet,12 hr sustained-release 100 mg PO DAILY 09/24/23 cephalexin 500 mg capsule 500 mg PO BID #16 caps 09/26/23
== END 2023-09-26 18:16 | disposition home or self-care (01) | DRG 178 ==
LOC: ED 21:59 → MS3 09-25 07:22
PROVIDERS: Internal Medicine; Nurse Practitioner; Admitting Provider Family Medicine; Emergency Provider Emergency Medicine; PCP Internal Medicine; Visit Provider Internal Medicine
DX: U07.1 COVID-19 (principal); I50.32 Chronic diastolic (congestive) heart failure; E87.1 Hypo-osmolality and hyponatremia; N13.8 Other obstructive and reflux uropathy; N30.00 Acute cystitis without hematuria; I11.0 Hypertensive heart disease with heart failure; I48.0 Paroxysmal atrial fibrillation; E86.0 Dehydration; F32.A Depression, unspecified; E78.2 Mixed hyperlipidemia; G47.33 Obstructive sleep apnea (adult) (pediatric); K21.9 Gastro-esophageal reflux disease without esophagitis; I25.10 Atherosclerotic heart disease of native coronary artery without angina pectoris; F41.9 Anxiety disorder, unspecified; R19.7 Diarrhea, unspecified; R09.02 Hypoxemia; B95.7 Other staphylococcus as the cause of diseases classified elsewhere; N40.1 Benign prostatic hyperplasia with lower urinary tract symptoms; Z79.01 Long term (current) use of anticoagulants; Z87.891 Personal history of nicotine dependence; Z86.73 Personal history of transient ischemic attack (TIA), and cerebral infarction without residual deficits; Z95.5 Presence of coronary angioplasty implant and graft; Z95.1 Presence of aortocoronary bypass graft
CPT/HCPCS: 36415; 70450; 71045; 80048; 80053; 81001; 82550; 82728; 83605; 83615; 83690; 83735; 83880; 84100; 84145; 84484; 85025; 85379; 85652; 86140; 87040; 87077; 87086; 87088; 87186; 87631; 93005; 94640; 94668; 94762; 97162; 97165; 99252; 99285; J7030; A4216; G0463; J2405

== ENCOUNTER → 2023-10-06 | Outpatient (CLI) | payer MEDICARE, OTHER, SELFPAY | END | disposition home or self-care (01) | LOC: MTLAB 14:34 | PROVIDERS: PCP Internal Medicine; Referring Provider Psychiatry & Neurology Neurology; Visit Provider Psychiatry & Neurology Neurology | DX: R32 Unspecified urinary incontinence (principal) | CPT/HCPCS: 36415; 84153 ==

== ENCOUNTER → 2023-10-18 | Outpatient (CLI) | payer MEDICARE, OTHER, SELFPAY ==
--- NOTE | 2023-10-18 12:16 | MRI_ITS ---
STUDY: MRI LUMBAR SPINE WITHOUT CONTRAST REASON FOR EXAM: Male, 83 years old. Low back pain, gait disorder, urinary and bowel incontinence. TECHNIQUE: Standardized fat and water weighted pulse sequences were obtained in the sagittal and axial planes. COMPARISON: None FINDINGS: T11-T12: (Sagittal only). Irregularity of the vertebral endplates presumably due to vertebral endplate sclerosis. Anterior marginal spurs. Moderate disc space narrowing. Minimal ventral extradural defect is posterior bulging annulus. Prominent dorsal epidural lipomatosis. Normal central canal and bilateral intervertebral neural foramina. T12-L1: (Sagittal only). Normal endplates. Normal disc height and morphology. Normal central canal and bilateral intervertebral neural foramina. Normal lumbar lordosis. There is no substantial scoliosis. Normal conus medullaris that terminates at the T12-L1 disc space level. Fibrolipoma of the filum terminale extending from the lower L1 vertebral body level down to S1. L1-2: Normal endplates. Normal disc height, hydration and morphology. Normal bilateral facet joints. Normal central canal and bilateral lateral recesses. Normal bilateral intervertebral neural foramina. L2-3: Tiny Schmorl''s nodes in the L2 inferior endplate and a shallow Schmorl''s node in the central L3 superior endplate. Mild disc space height narrowing. Mild ventral extradural defect due to posterior bulging annulus. Normal facet joints. Prominent dorsal epidural lipomatosis. Normal central canal and bilateral lateral recesses. Normal bilateral intervertebral neural foramina. L3-4: Normal endplates. Normal disc height. Mild right ventral extradural defect is posterior bulging annulus. Normal facet joints. Prominent dorsal epidural lipomatosis. Mild central canal stenosis with an AP canal diameter of 10 mm. Normal bilateral lateral recesses. Normal left intervertebral neural foramen. Mild stenosis of the right intervertebral neural foramen due to small right-sided posterior bulging annulus at the disc space level of the intervertebral neural foramen. L4-5: Mild central compression fracture underneath the right L4 inferior endplate with moderate amount of vertebral marrow edema. Normal L5 superior endplate. Mild increase right-sided central disc space height. Moderate narrowing of the remaining disc space height. Prominent ventral extradural defect due to posterior marginal spurs, asymmetric posterior bulging annulus and mild left-sided degenerative retrolisthesis of L4 on L5. Mild asymmetric degenerative facet arthropathy, right greater than left. Prominent dorsal epidural lipomatosis. Pronounced central canal stenosis with an AP canal diameter 5 mm. Normal bilateral lateral recesses. Moderate stenosis of the bilateral intervertebral foramina. L5-S1: Modic type II degenerative vertebral marrow fat infiltration underneath the vertebral endplates. Pronounced disc space height narrowing. Mild bilateral degenerative facet arthropathy. Normal central canal and bilateral lateral recesses. Moderately pronounced stenosis of the left intervertebral neural foramen with suspicious impingement of the left L5 nerve. Normal right intervertebral neural foramen. Normal visualized sacral ala. Normal visualized paraspinous soft tissue structures. MRI/Spine Lumbar (Routine) IMPRESSION: 1. Pronounced central canal stenosis at L4-L5 disc space level with an AP canal diameter 5 mm secondary to developmentally short pedicles and prominent dorsal epidural lipomatosis. Mild recent central compression fracture underneath the right side of the L4 inferior endplate with moderate amount of vertebral marrow edema. This is feasible for kyphoplasty if patient has debilitating back pain referrable to this site. Asymmetric L4-L5 posterior bulging annulus and mild left-sided degenerative retrolisthesis of L4 on L5 and moderate stenosis of the bilateral intervertebral neural foramina. 2. Mild central canal stenosis at L3-L4 disc space level with an AP canal diameter of 10 mm secondary to prominent dorsal epidural lipomatosis and mild stenosis of the right L3-4 intervertebral neural foramen due to small right-sided posterior bulging annulus at the disc space level of the right intervertebral neural foramen. 3. Moderately pronounced stenosis of the left L5-S1 intervertebral neural foramen due to pronounced disc space height narrowing and left posterior marginal spur suspiciously impinging the left L5 nerve. 4. No MRI evidence of lumbar extruded disc fragment or disc protrusion. Electronically Signed: Yann Matthew MD at 15:54 EDT ,
== END | disposition home or self-care (01) ==
LOC: MRI 12:10
PROVIDERS: PCP Internal Medicine; Referring Provider Psychiatry & Neurology Neurology; Visit Provider Psychiatry & Neurology Neurology
DX: R32 Unspecified urinary incontinence (principal); R15.9 Full incontinence of feces; R26.9 Unspecified abnormalities of gait and mobility; M54.50 Low back pain, unspecified
CPT/HCPCS: 72148

== ENCOUNTER 2023-12-02 10:38 | Inpatient (IN) | payer MEDICARE, OTHER, SELFPAY ==
[2023-12-02] VITALS (14 sets, daily range): BP systolic 124–177; BP diastolic 66–102; PULSE 56–622; RESP 15–20; TEMP 36.4–36.8; O2SAT 95–100; BMI 29.7; BMI 30.7
--- NOTE | 2023-12-02 10:47 | EKG12_ITS ---
Test Reason : STROKE TEAM Blood Pressure : / mmHG Vent. Rate : 063 BPM Atrial Rate : 063 BPM P-R Int : 224 ms QRS Dur : 088 ms QT Int : 452 ms P-R-T Axes : -07 026 093 degrees QTc Int : 462 ms Sinus rhythm with 1st degree A-V block Nonspecific T wave abnormality Abnormal ECG Confirmed by Rufus Harry ([id number]), development editor FUNMI AMES ([id number]) on 12/05/2023 8:46:16 AM Referred By: Confirmed By:Rufus Harry
--- NOTE | 2023-12-02 10:47 | CT_ITS ---
STUDY: CTA HEAD AND NECK WITH CONTRAST REASON FOR EXAM: Male, 83 years old. Neuro deficit, acute, stroke suspected RADIATION DOSAGE (If Supplied By Facility): CTDIvol = ( 23 ) mGy, DLP = ( 747.13 ) mGycm TECHNIQUE: CT angiography was performed with a multi-detector CT scanner. Data acquisition was obtained from the skull base through the vertex following intravenous administration of IV 100mL [id number]-[id number]. MIP images were reconstructed from the axial data set. Post-processing of the angiographic images was performed, with multiplanar reformation and 3D reconstruction. Individualized dose optimization techniques were used for this CT. COMPARISON: No relevant priors. FINDINGS: Normal bilateral petrous carotid arteries. There is calcified plaque formation of the right cavernous carotid artery, without a cross-sectional luminal stenosis. There is calcified plaque formation of the left cavernous carotid artery, without a cross-sectional luminal stenosis. Normal right A1 segments of the anterior cerebral artery. Normal left A1 segments of the anterior cerebral artery. Normal intact anterior communicating artery (ACOM). Normal bilateral A2 segments of the anterior cerebral arteries. Normal right M1 and M2 segments of the middle cerebral arteries, with a normal M1 bifurcation. Normal left M1 and M2 segments of the middle cerebral arteries, with a normal M1 bifurcation. Normal right posterior communicating artery (PCOM). Normal left posterior communicating artery (PCOM). Normal bilateral vertebral arteries. Normal basilar artery with a normal basilar bifurcation. The visualized bilateral superior cerebellar (SCA) arteries are normal. Normal bilateral P1, P2 and visualized P3 segments of the posterior cerebral arteries. There is no demonstrated aneurysm of the [place]. AORTIC ARCH: There is atherosclerotic calcific plaque formation of the aortic arch and great vessels arising from the aortic arch, without a hemodynamically significant stenosis. There is a normal origin of the brachiocephalic, left common carotid, and left subclavian arteries. Calcific plaque seen at the origin of the left subclavian artery. RIGHT CAROTID ARTERIES: Normal right common carotid artery (CCA). Normal right common carotid bulb. There is mild atherosclerotic plaque formation of the origin of the right internal carotid artery with less than 50% cross sectional diameter stenosis. Normal visualized cervical portion of the right internal carotid artery. Normal origin of the right external carotid artery (ECA). LEFT CAROTID ARTERIES: Normal left common carotid artery (CCA). Normal left common carotid bulb. There is moderate atherosclerotic plaque formation of the origin of the left internal carotid artery with an estimated stenosis of 50-69% stenosis. Normal visualized cervical portion of the left internal carotid artery. Apical plaque formation along the petrous portion of the left internal carotid artery causing less than 50% narrowing. Normal origin of the left external carotid artery (ECA). VERTEBRAL ARTERIES: Normal bilateral vertebral arteries. CT/STROKE CTA Head AND Neck W/Con IMPRESSION: Plaque formation at the origin of the right internal carotid artery causing less than 50% narrowing. 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 Calcific plaques seen in the petrous portion of the left internal carotid artery. N.B. : The above Results were Read Back by Taz Evangelista MD to Duy Lazaro and understanding confirmed on 12/02/2023 11:12:07 (ET). Electronically Signed: Taz Evangelista MD at 11:13 EDT ,
--- NOTE | 2023-12-02 10:47 | CT_ITS ---
STUDY: CT HEAD STROKE PROTOCOL W/O CONTRAST INJECTION REASON FOR EXAM: Male, 83 years old. Neuro deficit, acute, stroke suspected RADIATION DOSAGE (If Supplied By Facility): CTDIvol = ( 44.99 ) mGy, DLP = ( 829.85 ) mGycm TECHNIQUE: Transaxial CT imaging of the brain was performed without administration of intravenous contrast material. Individualized dose optimization techniques were used for this CT. COMPARISON: Comparison is made with prior study dated September 24, 2023. FINDINGS: Normal soft tissue structures. Normal calvarium. There is mild cerebral atrophy with widening of the extra-axial spaces and ventricular dilatation. There are areas of decreased attenuation within the white matter tracts of the supratentorial brain, consistent with microvascular disease changes. Stable bilateral lacunar infarcts of the basal ganglia. Normal brainstem. Stable encephalomalacia in the right cerebellar hemisphere. There is no intracranial hemorrhage. There are no findings of an acute ischemic infarction. Atherosclerotic calcification of the vertebral arteries and cavernous portions of the internal carotid arteries bilaterally. Normal visualized paranasal sinuses. ASPECT score: 8 CT/STROKE Brain/Head without Cont IMPRESSION: Chronic involutional changes of the brain. N.B. : The above Results were Read Back by Taz Evangelista MD to Duy Lazaro DO, and understanding confirmed on 12/02/2023 10:56:27 (ET). Electronically Signed: Taz Evangelista MD at 10:57 EDT ,
[2023-12-02 10:59] LABS: Absolute Lymphocyte Count 1.35 X10^3/uL (0.83-4.51); Absolute Neutrophil Count 5.6 X10^3/uL (2.0-7.7); Basophil# 0.04 X10^3/uL; Basophil% 0.5 % (0-1); Eosinophils% 1.3 % (0-5); Hematocrit 45.8 % (40-54); Hemoglobin 15.9 g/dL (13.0-16.5); Lymphocyte # 1.35 X10^3/ul (0.83-4.51); Lymphocyte % 17.3 % (19-41); Mean Corp Hgb Conc 34.7 g/dL (32-36); Mean Corpuscular Hgb 35.6 pg (27.0-32.0); Mean Corpuscular Volume 102.5 fL (80-94); Mean Platelet Vol. 10.4 fl (6.2-12.0); Monocyte# 0.69 X10^3/uL; Monocyte% 8.9 % (0-10); NRBC Flagged by Analyzer 0 % (0-5); Neutrophil # 5.59 X10^3/uL (2.7-7.7); Neutrophil % 71.7 % (47-70); Platelet Count 154 K/mm3 (150-450); RBC Distribution Width CV 12.2 % (11.6-14.6); RBC Distribution Width SD 45.8 fl (35.1-43.9); Red Blood Count 4.47 M/mm3 (4.6-6.2); White Blood Count 7.8 K/mm3 (4.4-11.0)
[2023-12-02 11:10] LABS: International Normalized Ratio 1.3; Prothrombin Time (Protime)PT. 16.1 SECONDS (11.7-14.9)
[2023-12-02 11:11] LABS: Partial Thromboplast Time 36.9 Seconds (24.1-36.2)
--- NOTE | 2023-12-02 11:14 | EDS_ITS ---
HPI History of Present Illness Chief Complaint: Stroke Alert Narrative Narrative: 83-year-old male presenting with his for strokelike symptoms. Last known well was 6 PM last night. states that this morning she woke up and went to say hello to him and he had garbled speech and she could not understand what he was saying. He has history of TIA and stroke. He is on Eliquis and has history of A-fib. Patient was met in the triage room where his speech was still garbled. Other than this he had only has a slight facial droop of the left eye and the left cheek. [facility] Medical History Lower extremity edema BPH (benign prostatic hyperplasia) Fatigue Wears hearing aid Wears dentures Wears glasses Arthritis High cholesterol Gastric reflux COPD (chronic obstructive pulmonary disease) History of echocardiogram History of stress test Cardiology follow-up encounter History of atrial fibrillation Sleep apnea Anemia Former smoker Atrial fibrillation Coronary artery disease Hypertension Fatigue (HFpEF) heart failure with preserved ejection fraction Insomnia DDD (degenerative disc disease), lumbar Thrombocytopenia Actinic skin damage Esophageal reflux Macular degeneration (senile) of retina, unspecified Mixed hyperlipidemia TIA (transient ischemic attack) Syncope Cardiac arrest with ventricular fibrillation Essential (primary) hypertension HLD (hyperlipidemia) Paroxysmal A-fib CVA (cerebral vascular accident) (05/2018) Acute coronary thrombosis not resulting in myocardial infarction Home Medications ?Medication ?Instructions ?Recorded ?Last Taken ?Type fluticasone furoate 100 1 inh inhalation DAILY 12/24/21 12/01/23 History mcg-vilanterol 25 mcg/dose inhalation powder (Breo Ellipta) pantoprazole 40 mg tablet,delayed 40 mg PO DAILY #60 tabs 07/14/22 12/01/23 Rx release (Protonix) isosorbide mononitrate 30 mg 30 mg PO DAILY #90 tabs 02/23/23 12/01/23 Rx tablet,extended release 24 hr nitroglycerin 0.4 mg sublingual 0.4 mg sublingual Q5M PRN Chest 02/23/23 Unknown Rx tablet Pain #25 tabs sotalol 120 mg tablet 120 mg PO BID heart/blood pressure 02/23/23 12/01/23 Rx #180 tabs furosemide 40 mg tablet 40 mg PO DAILY #90 tabs 03/23/23 12/01/23 Rx albuterol sulfate 90 mcg/actuation 1 puff inhalation Q4H PRN 09/24/23 Unknown History aerosol inhaler shortness of breath or wheezing bupropion HCl 100 mg tablet,12 hr 100 mg PO DAILY 09/24/23 12/01/23 History sustained-release tamsulosin 0.4 mg capsule 0.4 mg PO DAILY prostate #30 caps 10/06/23 12/01/23 Rx apixaban 5 mg tablet (Eliquis) 5 mg PO BID #180 tabs 10/17/23 12/01/23 Rx atorvastatin 80 mg tablet 80 mg PO DAILY 12/02/23 12/01/23 History Allergy/AdvReac Type Severity Reaction Status Date / Time lisinopril Allergy Severe Cough Verified 10/06/23 13:25 oxycodone (From Percocet) Allergy Severe Hallucinati Verified 10/06/23 13:25 ons pravastatin Allergy Intermediate Myalgia Verified 10/06/23 13:25 Quinolones Allergy Unknown Unknown Verified 10/06/23 13:25 pregabalin (From Lyrica) AdvReac Severe depression Verified 10/06/23 13:25 Family History Mother No problems noted. Father Cancer Sister Cancer Surgical History History of cardiac catheterization Hx of hernia repair Hx of colonoscopy History of left heart catheterization (09/2016) History of incisional hernia repair History of coronary artery stent placement (08/06/12) H/O coronary artery bypass surgery (03/27/04) History of tonsillectomy History of cholecystectomy Social History Smoking Status: Former smoker pack-years: 37 Tobacco: How many years used: 25 how long ago did patient quit smokin quit status: has quit before alcohol intake: current alcohol intake frequency: 0-2 drinks per day Alcohol type: beer and hard liquor substance use type: does not use caffeine: Yes Type: coffee Number of servings: 2 what type of physical activity do you participate in: none seatbelt use: always do you feel safe at home: Yes ROS ROS ED Constitutional Constitutional ED: Denies chills, fever(s) or sweats Eyes Eyes: Denies blurry vision or change in vision ENT ENT ED: Denies ear pain or sore throat Cardiovascular Cardiovascular: Denies chest pain, palpitations or racing heartbeat Respiratory/Chest Respiratory/Chest: Denies cough, dyspnea or sputum Gastrointestinal Gastrointestinal: Denies abdominal pain, constipation, diarrhea, nausea or vomiting Genitourinary Genitourinary ED: Denies dysuria, hematuria or urinary frequency Musculoskeletal Musculoskeletal: Denies arthralgias, myalgias or neck pain Integumentary Denies abscess, Abrasions or rash Neurologic Neurologic: Denies headache(s), paresthesias or weakness Psychiatric Psychiatric: Denies anxiety, depression, suicidal ideation or suicidal thoughts Endocrine Endocrinology: Denies polydipsia or polyuria EXAM Physical Exam Const Vital Signs: 12/02/23 10:40 12/02/23 10:47 12/02/23 10:47 Temperature 97.5 F L Temperature Source Temporal Pulse Rate 69 63 Respiratory Rate 19 H 18 Blood Pressure 166/94 H 150/66 H Blood Pressure Mean 118 94 Pulse Ox 97 99 Oxygen Delivery Method Room Air Room Air Room Air 12/02/23 11:03 12/02/23 11:17 12/02/23 11:30 Temperature Temperature Source Pulse Rate 73 65 59 L Respiratory Rate 18 17 17 Blood Pressure 150/66 H 148/80 H 156/82 H Blood Pressure Mean 94 102 106 Pulse Ox 98 97 97 Oxygen Delivery Method Room Air Room Air Room Air 12/02/23 12:00 12/02/23 12:30 Temperature Temperature Source Pulse Rate 62 60 Respiratory Rate 18 19 H Blood Pressure 140/74 H 148/75 H Blood Pressure Mean 96 99 Pulse Ox 97 98 Oxygen Delivery Method Room Air Room Air Positive well nourished General Appearance ED: NAD HEENT Reports moist mucous membranes Eyes PERRL and EOMs intact bilaterally Resp normal respiratory effort and clear to auscultation bilaterally GI normal to inspection, nondistended, normoactive bowel sounds Neuro Sensorium / Orientation: alert, oriented to person, oriented to place and oriented to time Motor Exam: general weakness Psych mental status grossly normal NIHSS NIHSS Initial: 1a Level of Consciousness: 0 1b LOC Questions (Score 2 if aphasic/stupor): 1 1c LOC Commands (Only score 1st attempt): 0 2 Best Gaze (If aphasic, use reflexive mvmts.): 0 3 Visual: 0 4 Facial Palsy: 1 5 Motor Arm Right (UN = amputation/fusion): 0 5 Motor Arm Left: 0 6 Motor Leg Right: 0 6 Motor Leg Left: 0 7 Limb ataxia (Only + if out of proportion): 0 8 Sensory (Aphasia/stupor=0 or 1, coma=2): 0 9 Best Language: 1 10 Dysarthria (mute, coma=2, intubated=UN): 1 11 Extinction and Inattention (only scored if +): 0 Total Score: 4 Follow up: 1a Level of Consciousness: 0 1b LOC Questions (Score 2 if aphasic/stupor): 0 1c LOC Commands (Only score 1st attempt): 0 2 Best Gaze (If aphasic, use reflexive mvmts.): 0 3 Visual: 0 4 Facial Palsy: 1 5 Motor Arm Right (UN = amputation/fusion): 0 5 Motor Arm Left: 0 6 Motor Leg Right: 0 6 Motor Leg Left: 0 7 Limb ataxia (Only + if out of proportion): 0 8 Sensory (Aphasia/stupor=0 or 1, coma=2): 0 9 Best Language: 0 10 Dysarthria (mute, coma=2, intubated=UN): 0 11 Extinction and Inattention (only scored if +): 0 Total Score: 1 MDM MDM MDM Narrative Medical decision making narrative: Patient presenting as stroke team in triage. At this point he had garbled speech and a facial droop. NIH stroke scale score was 4. He was taken to CT and on arrival back to the room his NIH stroke score is right 1 for a slightly additional treatments. Patient's states he is speaking normally now. Discussed with neurology who stated the patient was not a tPA candidate and recommended keeping the patient 49-year-old male here with history of unless a CTA was abnormal. Radiology and neurology in agreement that there is nothing acute previously CT brain. CBC was obtained to assess white blood cell count, hemoglobin, platelets. BMP to assess renal function, electrolytes, glucose. PT, PTT, INR were obtained. High-sensitivity troponin and EKG were obtained to assess for ischemia/dysrhythmia. Final chest x-ray will also be obtained. CBC shows white blood cell count of 7.8. Hemoglobin 15.9. Hematocrit 45.8. Platelets are normal at 154. Renal function appears normal. Glucose 124. High-sensitivity troponin is 4. EKG on my interpretation shows sinus rhythm at 63 bpm with first-degree AV block. Chest x-ray my interpretation shows no acute process. CT brain and CTA were read as negative for acute findings. Patient did have another episode of garbled speech which also resolved. Impression: 1. CVA 2. Expressive aphasia Lab Data Attestation: I reviewed the patient's lab results. Labs: Laboratory Results - last 24 hr 12/02/23 10:45 WBC 7.8 RBC 4.47 L Hgb 15.9 Hct 45.8 MCV 102.5 H MCH 35.6 H MCHC 34.7 RDW Std Deviation 45.8 H RDW Coeff of Randall 12.2 Plt Count 154 MPV 10.4 Immature Gran % (Auto) 0.300 Neut % (Auto) 71.7 H Lymph % (Auto) 17.3 L Taylor % (Auto) 8.9 Eos % (Auto) 1.3 Baso % (Auto) 0.5 Absolute Neuts (auto) 5.6 Absolute Lymphs (auto) 1.35 Nucleated RBC % 0 PT 16.1 H INR 1.3 APTT 36.9 H Sodium 135 L Potassium 4.2 Chloride 102 Carbon Dioxide 29.0 Anion Gap 4 L BUN 10 Creatinine 1.02 Estim Creat Clear Calc 55.70 Est GFR (MDRD) Af Amer 90 Est GFR (MDRD) Non-Af 74 BUN/Creatinine Ratio 9.8 L Glucose 124 H Calcium 9.0 Troponin I High Sens 4 Radiography Diagnostic Testing: Clinical Impression(s) from Imaging Studies Brain CT 12/02/23 10:47 IMPRESSION: Chronic involutional changes of the brain. N.B. : The above Results were Read Back by Taz Evangelista MD to Duy Lazaro DO, and understanding confirmed on 12/02/2023 10:56:27 (ET). Electronically Signed: Taz Evangelista MD at 10:57 EDT , ADDENDUM: 12/02/23 1104 IMPRESSION: Chronic involutional changes of the brain. N.B. : The above Results were Read Back by Taz Evangelista MD to Duy Lazaro DO, and understanding confirmed on 12/02/2023 10:56:27 (ET). Electronically Signed: Taz Evangelista MD at 10:57 EDT , Head/Neck CTA 12/02/23 10:47 IMPRESSION: Plaque formation at the origin of the right internal carotid artery causing less than 50% narrowing. 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 Calcific plaques seen in the petrous portion of the left internal carotid artery. N.B. : The above Results were Read Back by Taz Evangelista MD to Duy Lazaro and understanding confirmed on 12/02/2023 11:12:07 (ET). Electronically Signed: Taz Evangelista MD at 11:13 EDT , ADDENDUM: 12/02/23 1120 IMPRESSION: Plaque formation at the origin of the right internal carotid artery causing less than 50% narrowing. 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 Calcific plaques seen in the petrous portion of the left internal carotid artery. N.B. : The above Results were Read Back by Taz Evangelista MD to Duy Lazaro and understanding confirmed on 12/02/2023 11:12:07 (ET). Electronically Signed: Taz Evangelista MD at 11:13 EDT , Chest X-Ray 12/02/23 11:18 IMPRESSION: Hyperinflation. The lungs are clear. Electronically Signed: Taz Evangelista MD at 12:17 EDT , Discharge Plan Disposition Disposition: Acute Care Hospital [facility] Discharge Date/Time: 12/02/23 13:10
--- NOTE | 2023-12-02 11:18 | RAD_ITS ---
STUDY: X-RAY CHEST REASON FOR EXAM: Male, 83 years old. Neuro deficit, acute, stroke suspected TECHNIQUE: Single AP portable view of the chest. COMPARISON: Comparison is made with prior study September 24, 2023. FINDINGS: EKG electrodes are seen. Hyperinflation. The lungs are clear and expanded. There is no demonstrated pleural abnormality. Sternal cerclage wires and vascular clips are present from a prior sternotomy and coronary artery bypass graft procedure (CABG). Normal mediastinum and britany. Normal visualized pulmonary arteries. Normal visualized aortic arch and descending thoracic aorta. Normal visualized thoracic spine. There is degenerative osteoarthritis of the bilateral shoulders. There is no demonstrated abnormality of the visualized soft tissue structures of the upper abdomen. RAD/Chest 1 View IMPRESSION: Hyperinflation. The lungs are clear. Electronically Signed: Taz Evangelista MD at 12:17 EDT ,
[2023-12-02 11:23] LABS: Anion Gap 4 (5-15); BUN 10 mg/dL (7-18); BUN/Creat Ratio 9.8 RATIO (10-20); Chloride 102 mmol/L (98-107); Creatinine, Serum 1.02 mg/dL (0.70-1.30); EST Glomerular Filtration Rate 74 mL/min (>60); Est Glom Filt Rate - Afr Amer 90 mL/min (>60); Glucose 124 mg/dL (74-106); Potassium 4.2 mmol/L (3.5-5.1); Sodium Level 135 mmol/L (136-145); Troponin-I HS 4 pg/mL (3.0-78.0)
--- NOTE | 2023-12-02 11:30 | ED.RN ---
Dr. chino updated that patients speech was gargled again. Pt. knows his name but states his birthday is a color.
--- NOTE | 2023-12-02 12:19 | PCM.HP.STD ---
HPI - General General Date of Admission: 12/02/23 Date of Service: 12/02/23 Chief Complaint: expressive aphasia HPI Narrative RO SWAN, is a 83 M with a PMH as outlined who presents via the ED on 12/02/2023 with a complaint of expressive aphasia. says his last known well was 6pm on the night before admission. went to say hello to him this morning and noted he had garbled speech. She could not understand anything he was saying. She did not notice that he had any focal weakness or bowel trip. She called the EMS and he was worried to the hospital. Denied any fever or chills, palpitations, dizziness, nausea or vomiting or any other symptoms. Review of systems otherwise negative. Vitals in the ED were blood pressure 140/74, pulse rate of 62 and respirate rate of 18. He was saturating at 97% on room air. CBC showed hemoglobin of 15.9 with WBC of 7.8 and platelets of 154. INR was 1.3. Chemistry shows sodium of 135 with bicarb of 29 and potassium of 4.2. Creatinine was 1.02. Initial troponin was 4. Chest x-ray showed hyperinflation with clear lungs. CTA of the head and neck showed plaque formation at the origin of the right internal carotid artery causing less than 50% stenosis and stenosis at the origin of the left internal carotid artery causing between 50 to 69% stenosis and calcified plaque seen in the petrous portion of the left internal carotid artery. CT of the brain showed chronic involutional changes. He has been admitted to rule out a stroke. PENDING SALE TO [facility] Medical History Lower extremity edema BPH (benign prostatic hyperplasia) Fatigue Wears hearing aid Wears dentures Wears glasses Arthritis High cholesterol Gastric reflux COPD (chronic obstructive pulmonary disease) History of echocardiogram History of stress test Cardiology follow-up encounter History of atrial fibrillation Sleep apnea Anemia Former smoker Atrial fibrillation Coronary artery disease Hypertension Fatigue (HFpEF) heart failure with preserved ejection fraction Insomnia DDD (degenerative disc disease), lumbar Thrombocytopenia Actinic skin damage Esophageal reflux Macular degeneration (senile) of retina, unspecified Mixed hyperlipidemia TIA (transient ischemic attack) Syncope Cardiac arrest with ventricular fibrillation Essential (primary) hypertension HLD (hyperlipidemia) Paroxysmal A-fib CVA (cerebral vascular accident) (05/2018) Acute coronary thrombosis not resulting in myocardial infarction Home Medications ?Medication ?Instructions ?Recorded ?Last Taken ?Type fluticasone furoate 100 1 inh inhalation DAILY 12/24/21 12/01/23 History mcg-vilanterol 25 mcg/dose inhalation powder (Breo Ellipta) pantoprazole 40 mg tablet,delayed 40 mg PO DAILY #60 tabs 07/14/22 12/01/23 Rx release (Protonix) isosorbide mononitrate 30 mg 30 mg PO DAILY #90 tabs 02/23/23 12/01/23 Rx tablet,extended release 24 hr nitroglycerin 0.4 mg sublingual 0.4 mg sublingual Q5M PRN Chest 02/23/23 Unknown Rx tablet Pain #25 tabs sotalol 120 mg tablet 120 mg PO BID heart/blood pressure 02/23/23 12/01/23 Rx #180 tabs furosemide 40 mg tablet 40 mg PO DAILY #90 tabs 03/23/23 12/01/23 Rx albuterol sulfate 90 mcg/actuation 1 puff inhalation Q4H PRN 09/24/23 Unknown History aerosol inhaler shortness of breath or wheezing bupropion HCl 100 mg tablet,12 hr 100 mg PO DAILY 09/24/23 12/01/23 History sustained-release tamsulosin 0.4 mg capsule 0.4 mg PO DAILY prostate #30 caps 10/06/23 12/01/23 Rx apixaban 5 mg tablet (Eliquis) 5 mg PO BID #180 tabs 10/17/23 12/01/23 Rx atorvastatin 80 mg tablet 80 mg PO DAILY 12/02/23 12/01/23 History Allergy/AdvReac Type Severity Reaction Status Date / Time lisinopril Allergy Severe Cough Verified 10/06/23 13:25 oxycodone (From Percocet) Allergy Severe Hallucinati Verified 10/06/23 13:25 ons pravastatin Allergy Intermediate Myalgia Verified 10/06/23 13:25 Quinolones Allergy Unknown Unknown Verified 10/06/23 13:25 pregabalin (From Lyrica) AdvReac Severe depression Verified 10/06/23 13:25 Family History Mother No problems noted. Father Cancer Sister Cancer Surgical History History of cardiac catheterization Hx of hernia repair Hx of colonoscopy History of left heart catheterization (09/2016) History of incisional hernia repair History of coronary artery stent placement (08/06/12) H/O coronary artery bypass surgery (03/27/04) History of tonsillectomy History of cholecystectomy Social History Smoking Status: Former smoker pack-years: 37 Tobacco: How many years used: 25 how long ago did patient quit smokin quit status: has quit before alcohol intake: current alcohol intake frequency: 0-2 drinks per day Alcohol type: beer and hard liquor substance use type: does not use caffeine: Yes Type: coffee Number of servings: 2 what type of physical activity do you participate in: none seatbelt use: always do you feel safe at home: Yes ROS Constitutional Constitutional: Denies anorexia, chills, fatigue, fever(s), malaise or weakness Eyes Eyes: Denies change in vision ENT HEENT: Denies dysphagia, headache(s), hearing loss, loss taste/smell, nasal congestion, sore throat or throat swelling Cardiovascular Cardiovascular: Denies chest pain, edema, orthopnea, palpitations or paroxysmal nocturnal dyspnea Respiratory/Chest Respiratory/Chest: Denies cough, shortness of breath at rest or shortness of breath with exertion Gastrointestinal Gastrointestinal: Denies abdominal pain, diarrhea, nausea or vomiting Genitourinary Genitourinary: Denies dysuria Musculoskeletal Musculoskeletal: Reports neck pain; Denies back pain or joint pain Neurologic Neurologic: Reports abnormal speech; Denies confusion, dizziness, focal weakness, headache(s), lack of coordination, numbness, seizures, sensory deficit, tingling, tremor(s) or weakness Psychiatric Psychiatric: Denies anxiety or depression Endocrine Endocrinology: Denies change in body appearance Hematologic/Lymphatic Hematologic/Lymphatic: Denies anemia Vital Signs Vital Signs Vital Signs: 12/02/23 10:40 12/02/23 10:47 12/02/23 10:47 Temperature 97.5 F L Temperature Source Temporal Pulse Rate 69 63 Respiratory Rate 19 H 18 Blood Pressure 166/94 H 150/66 H Blood Pressure Mean 118 94 Pulse Ox 97 99 Oxygen Delivery Method Room Air Room Air Room Air 12/02/23 11:03 12/02/23 11:17 12/02/23 11:30 Temperature Temperature Source Pulse Rate 73 65 59 L Respiratory Rate 18 17 17 Blood Pressure 150/66 H 148/80 H 156/82 H Blood Pressure Mean 94 102 106 Pulse Ox 98 97 97 Oxygen Delivery Method Room Air Room Air Room Air 12/02/23 12:00 Temperature Temperature Source Pulse Rate 62 Respiratory Rate 18 Blood Pressure 140/74 H Blood Pressure Mean 96 Pulse Ox 97 Oxygen Delivery Method Room Air Weight Weight: 184 lb 8.43 oz Body Mass Index (BMI) 29.7 Physical Exam Const alert, oriented x3 and no apparent distress General Appearance: cooperative and well developed HEENT normocephalic, head/scalp atraumatic, moist oral mucous membranes and oropharynx normal Eyes PERRL and EOMs intact bilaterally Neck no lymphadenopathy and supple Lymph Lymphatic: no lymphadenopathy noted and no lymphedema noted Resp normal respiratory effort, normal air movement and clear to auscultation bilaterally Cardio regular rate, regular rhythm, S1 normal heart sound, S2 normal heart sound and no murmurs GI normal to inspection, nondistended, normoactive bowel sounds, soft to palpation, non-tender and non-distended Extremity normal capillary refill, no clubbing, cyanosis or edema and no calf tenderness Skin General Skin Exam: no breakdown Neuro no focal motor deficits, no sensory deficits noted and deep tendon reflexes 2+ bilaterally Neuro Narrative: still has some expressive aphasia, no numbness or tingling Motor Exam: strength 5/5 throughout Psych thought process normal Appearance: appropriate Results Lab / Micro Data 12/02/23 10:45 12/02/23 10:45 Labs: Laboratory Results - last 24 hr 12/02/23 10:45: WBC 7.8, RBC 4.47 L, Hgb 15.9, Hct 45.8, MCV 102.5 H, MCH 35.6 H, MCHC 34.7, RDW Std Deviation 45.8 H, RDW Coeff of Randall 12.2, Plt Count 154, MPV 10.4, Immature Gran % (Auto) 0.300, Neut % (Auto) 71.7 H, Lymph % (Auto) 17.3 L, [place] % (Auto) 8.9, Eos % (Auto) 1.3, Baso % (Auto) 0.5, Absolute Neuts (auto) 5.6, Absolute Lymphs (auto) 1.35, Nucleated RBC % 0, PT 16.1 H, INR 1.3, APTT 36.9 H, Sodium 135 L, Potassium 4.2, Chloride 102, Carbon Dioxide 29.0, Anion Gap 4 L, BUN 10, Creatinine 1.02, Estim Creat Clear Calc 55.70, Est GFR (MDRD) Af Amer 90, Est GFR (MDRD) Non-Af 74, BUN/Creatinine Ratio 9.8 L, Glucose 124 H, Calcium 9.0, Troponin I High Sens 4 Imaging Radiology Impression Brain CT 12/02/23 10:47 IMPRESSION: Chronic involutional changes of the brain. N.B. : The above Results were Read Back by Taz Evangelista MD to Duy Lazaro DO, and understanding confirmed on 12/02/2023 10:56:27 (ET). Electronically Signed: Taz Evangelista MD at 10:57 EDT , ADDENDUM: 12/02/23 1104 IMPRESSION: Chronic involutional changes of the brain. N.B. : The above Results were Read Back by Taz Evangelista MD to Duy Lazaro DO, and understanding confirmed on 12/02/2023 10:56:27 (ET). Electronically Signed: Taz Evangelista MD at 10:57 EDT , Head/Neck CTA 12/02/23 10:47 IMPRESSION: Plaque formation at the origin of the right internal carotid artery causing less than 50% narrowing. 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 Calcific plaques seen in the petrous portion of the left internal carotid artery. N.B. : The above Results were Read Back by Taz Evangelista MD to Duy Lazaro and understanding confirmed on 12/02/2023 11:12:07 (ET). Electronically Signed: Taz Evangelista MD at 11:13 EDT , ADDENDUM: 12/02/23 1120 IMPRESSION: Plaque formation at the origin of the right internal carotid artery causing less than 50% narrowing. 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 Calcific plaques seen in the petrous portion of the left internal carotid artery. N.B. : The above Results were Read Back by Taz Evangelista MD to Duy Tejas and understanding confirmed on 12/02/2023 11:12:07 (ET). Electronically Signed: Taz Evangelista MD at 11:13 EDT , Chest X-Ray 12/02/23 11:18 IMPRESSION: Hyperinflation. The lungs are clear. Electronically Signed: Taz Evangelista MD at 12:17 EDT , Assessment & Plan Assessment/Plan (1) Expressive aphasia: PLAN: #Expressive aphasia to rule out a stroke admit under observation to PCU CT of the brain shows no acute intracranial pathology. His last known well was 6 PM on the night before admission and found him with expressive aphasia today. She could not understand anything he was saying. CTA head and neck showed plaque formation at the origin of the right internal carotid artery causing less than 50% stenosis and stenosis at the origin of the left internal carotid artery causing between 50 to 69% stenosis and calcified plaque seen in the petrous portion of the left internal carotid artery. He did have a carotid ultrasound from January 2023 which showed irregular calcific plaque at the proximal right internal carotid artery with less than 50% stenosis and greater than 50% stenosis of the right external carotid artery with minimal plaque at the proximal left internal carotid artery with less than 50% stenosis and less than 50% stenosis of the left external carotid artery. It does appear that the stenosis in the left internal carotid artery has worsened. get 2D echo get MRI of the brain vascular surgery consult PO aspirin and high intensity statin Monitor NIH stroke scale PT OT consult. Consult neurology #History of A-fib: On Eliquis and sotalol #CAD s/p CABG: On aspirin and Plavix as well as high intensity statin #BPH: On Flomax #Depression: On bupropion #Benign essential hypertension:hold BP meds to allow for permissive hypertension in case of a stroke. DVT prophylaxis: on eliquis Code status: full code Patient counseled extensively about different types of CODE STATUS including full code, DNR CCA and DNR CCA. Patient elects to be full code. Total [id number]-[id number] time 17 minutes. Charges/Coding Visit Charges Inpatient E&M: 33569 Init Hosp L2 Procedures Hospitalists Procedures: 74249 Advncd Care Plan 30 Min
[2023-12-02] MEDS: Aspirin 325 MG Tablet PO (12:46)
[2023-12-02 13:52] LABS: Hemoglobin A1c 5.3 % (3.8-5.6)
--- NOTE | 2023-12-02 13:59 | MRI_ITS ---
STUDY: MRI BRAIN WITHOUT CONTRAST REASON FOR EXAM: Male, 83 years old. expressive aphasia TECHNIQUE: Standardized multiplanar fat and water weighted pulse sequences were obtained. COMPARISON: HEMISPHERES, CEREBELLUM AND BRAINSTEM: Normal midline developmental anatomy. No Chiari malformation. Unremarkable sella. Cerebellar pontine angles are clear. Sequela of old bilateral basal ganglial lacunar infarcts. No diffusion restriction. No evidence of prior hemorrhage. Moderate periventricular T2 hyperintense chronic small vessel white matter ischemic change. PITUITARY: Infundibulum and pituitary have normal configuration. Midline structures appear normal. CSF SPACES: Appropriate for age. No hydrocephalus. Basal cisterns are patent. VESSELS: 1. There are normal flow voids noted in the great vessels at the skull base ORBITS AND PARANASAL SINUSES: 1. Both globes, extraocular muscles, optic nerves and retrobulbar fat appear unremarkable. 2. Mild scattered paranasal sinus mucoperiosteal thickening.. BONY ELEMENTS: Bony elements of the cranial vault, facial skeleton and skull base have normal appearance. SCALP AND SOFT TISSUES: Normal appearance of the soft tissues of the scalp and the visualized face MRI/Brain without Contrast IMPRESSION: 1. No intracranial mass, hemorrhage, or acute territorial infarct. 2. Sequela of old basal ganglia lacunar infarcts. 3. Moderate senescent changes compatible with age.. 4. Mild sinus disease Electronically Signed: Piyush Dinh MD at 17:59 EDT ,
--- NOTE | 2023-12-02 13:59 | ECHOD_ITS ---
Reason For Study: TIA/CVA Procedure This was a 2D Doppler, Color Flow transthoracic echocardiogram. Exam performed portable in patient room. Left Ventricle Normal LV size. The estimated ejection fraction is 60 %. No evidence for diastolic dysfunction. No regional wall motion abnormalities noted. Right Ventricle Normal RV size. Normal systolic function. Atria The left and right atria are normal. No doppler evidence for ASD. Mitral Valve There is no mitral valve stenosis. Trivial mitral valve insufficiency. Tricuspid Valve There is no tricuspid stenosis. Unable to estimate RV systolic pressure due to insufficient tricuspid regurgitant envelope. Trivial tricuspid valve insufficiency. Aortic Valve Trisinus/trileaflet aortic valve. There is no aortic stenosis. No aortic valve insufficiency. Pulmonic Valve There is no pulmonic valvular stenosis. Trivial pulmonic valve insufficiency. Great Vessels Normal aortic root. Pericardium/Pleural No pericardial effusion. MMode/2D Measurements & Calculations LVIDd: 4.3 cm IVSd: 1.3 cm Ao root diam: 3.5 cm LVIDs: 2.8 cm LVPWd: 1.3 cm RVDd: 3.1 cm FS: 35.5 % LAV(MOD-bp): 54.1 ml LVAd ap4: 18.5 cm2 SV(MOD-sp4): 29.6 ml LAV(MOD-bp) Indexed: 27.6 ml/m2 LVLd ap4: 6.3 cm LAV(MOD-sp2): 53.8 ml EDV(MOD-sp4): 45.1 ml LAV(MOD-sp4): 52.8 ml EDV(sp4-el): 45.9 ml LVAs ap4: 9.7 cm2 LVLs ap4: 5.6 cm ESV(MOD-sp4): 15.5 ml ESV(sp4-el): 14.3 ml EF(MOD-sp4): 65.6 % EF(sp4-el): 68.8 % SV(sp4-el): 31.6 ml LA A4 area: 19.9 cm2 LA dimension(2D): 4.2 cm RA A4 area: 12.1 cm2 TAPSE: 1.4 cm Time Measurements MV dec time: 0.23 sec Doppler Measurements & Calculations MV E max kj: 58.3 cm/sec Lat Peak E' Kj: 6.7 cm/sec Med Peak E' Kj: 4.5 cm/sec MV A max kj: 70.5 cm/sec E/E' lat: 8.7 E/E' med: 13.0 MV E/A: 0.83 Ao V2 max: 87.6 cm/sec LV V1 max: 78.1 cm/sec MV dec slope: 253.4 cm/sec2 Ao max P.1 mmHg LV V1 max P.4 mmHg Ao V2 mean: 56.6 cm/sec LV V1 mean P.3 mmHg Ao mean P.5 mmHg LV V1 mean: 51.3 cm/sec Ao V2 VTI: 19.9 cm LV V1 VTI: 19.0 cm AV (velocity ratio): 0.96 PA V2 max: 121.1 cm/sec TR max kj: 205.7 cm/sec PA V2 mean: 75.0 cm/sec TR max P.9 mmHg PA V2 VTI: 22.6 cm ECHO/Echo Complete Interpretation Summary The estimated ejection fraction is 60 %. No evidence for diastolic dysfunction. Trivial mitral valve insufficiency. Ordering Physician: Hina Quarles Referring Physician: Jose Wolfe Performed By: Adelaide Bauer, NANI, RVT
--- NOTE | 2023-12-02 14:03 | CDU_ITS ---
Reason For Study: Carotid Stenosis Rt. Velocities/BP Lt. Velocities/BP Prox CCA 79.6/10.2 cm/sec. Prox CCA 87.5/12.7 cm/sec. Mid CCA 76.0/12.1 cm/sec. Mid CCA 63.9/9.1 cm/sec. Dist CCA 85.1/13.9 cm/sec. Dist CCA 73.3/6.2 cm/sec. Prox ICA 60.8/7.9 cm/sec. Prox ICA 66.7/11.9 cm/sec. Mid ICA 86.4/13.3 cm/sec. Mid ICA 72.4/15.7 cm/sec. Dist ICA 71.8/13.3 cm/sec. Dist ICA 64.8/14.7 cm/sec. Rt. ICA/CCA = 1.1. Lt. ICA/CCA = 1.1. Prox ECA 154.0/11.5 cm/sec. Prox ECA 63.9/6.2 cm/sec. Rt. Vert. 41.2/8.1 cm/sec. Lt. Vert. 50.1/11.7 cm/sec. Right Extracranial There is homogeneous, smooth atherosclerotic plaque noted in the right common carotid artery. There is heterogeneous, irregular atherosclerotic plaque noted in the right internal carotid artery. There is heterogeneous, irregular atherosclerotic plaque noted in the right external carotid artery. Antegrade flow is noted in the right vertebral artery. Left Extracranial There is homogeneous, smooth atherosclerotic plaque noted in the left common carotid artery. There is heterogeneous, smooth atherosclerotic plaque noted in the left internal carotid artery. There is heterogeneous, irregular atherosclerotic plaque noted in the left external carotid artery. Antegrade flow is noted in the left vertebral artery. Procedure Carotid Duplex 00407. This is a Carotid Duplex examination using B-mode, color flow and specral Doppler. The study was technically difficult due to patient positioning. Exam performed portable in patient room. VL/Carotid Duplex Ultrasound Interpretation Summary Minimal irregular plaque at the proximal right internal carotid artery with les s than 50% stenosis Less than 50% stenosis right external carotid artery Smooth plaque at the proximal left internal carotid artery with less than 50% s tenosis Less than 50% stenosis left external carotid artery Patent and antegrade vertebral arteries bilaterally No advancement of disease of the previous study of February 14, 2023 Ordering Physician: Hina Quarles Referring Physician: Jose Wolfe Performed By: Geraldo Jason RVT
[2023-12-02] MEDS: LORazepam 1 MG Tablet PO (16:41)
[2023-12-02] MEDS: Ensure Plus High Protein 120 ML LIQUID PO (16:43)
--- NOTE | 2023-12-02 17:14 | PN.SURG_ITS ---
Objective Data Objective Data Vital Signs: Vital Signs Temp Pulse Resp BP Pulse Ox O2 Del Method 98.0 F 62 16 159/69 H 97 Room Air 12/02/23 14:00 12/02/23 14:00 12/02/23 14:00 12/02/23 14:00 12/02/23 16:54 12/02/23 16:54 Oxygen Delivery Method Room Air Weight: 190 lb 6.4 oz Body Mass Index (BMI) 30.7 Lab / Micro Data 12/02/23 10:45 12/02/23 10:45 Labs: Laboratory Results - last 24 hr 12/02/23 10:45: WBC 7.8, RBC 4.47 L, Hgb 15.9, Hct 45.8, MCV 102.5 H, MCH 35.6 H , MCHC 34.7, RDW Std Deviation 45.8 H, RDW Coeff of Randall 12.2, Plt Count 154, MPV 10.4, Immature Gran % (Auto) 0.300, Neut % (Auto) 71.7 H, Lymph % (Auto) 17.3 L, [place] % (Auto) 8.9, Eos % (Auto) 1.3, Baso % (Auto) 0.5, Absolute Neuts (auto) 5.6, Absolute Lymphs (auto) 1.35, Nucleated RBC % 0, PT 16.1 H, INR 1.3, APTT 36.9 H, Sodium 135 L, Potassium 4.2, Chloride 102, Carbon Dioxide 29.0, Anion Gap 4 L, BUN 10, Creatinine 1.02, Estim Creat Clear Calc 55.70, Est GFR (MDRD) Af Amer 90, Est GFR (MDRD) Non-Af 74, BUN/Creatinine Ratio 9.8 L, Glucose 124 H, Hemoglobin A1c 5.3, Calcium 9.0, Troponin I High Sens 4 Radiography Diagnostic Testing: Radiology Impression Brain CT 12/02/23 10:47 IMPRESSION: Chronic involutional changes of the brain. N.B. : The above Results were Read Back by Taz Evangelista MD to Duy Lazaro DO, and understanding confirmed on 12/02/2023 10:56:27 (ET). Electronically Signed: Taz Evangelista MD at 10:57 EDT , ADDENDUM: 12/02/23 1104 IMPRESSION: Chronic involutional changes of the brain. N.B. : The above Results were Read Back by Taz Evangelista MD to Duy Lazaro DO, and understanding confirmed on 12/02/2023 10:56:27 (ET). Electronically Signed: Taz Evangelista MD at 10:57 EDT Reading Location ID and State: [facility] / [place] , Service support , Head/Neck CTA 12/02/23 10:47 IMPRESSION: Plaque formation at the origin of the right internal carotid artery causing less than 50% narrowing. 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 Calcific plaques seen in the petrous portion of the left internal carotid artery. N.B. : The above Results were Read Back by Taz Evangelista MD to Duy Lazaro and understanding confirmed on 12/02/2023 11:12:07 (ET). Electronically Signed: Taz Evangelista MD at 11:13 EDT , ADDENDUM: 12/02/23 1120 IMPRESSION: Plaque formation at the origin of the right internal carotid artery causing less than 50% narrowing. 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 Calcific plaques seen in the petrous portion of the left internal carotid artery. N.B. : The above Results were Read Back by Taz Evangelista MD to Duy Lazaro and understanding confirmed on 12/02/2023 11:12:07 (ET). Electronically Signed: Taz Evangelista MD at 11:13 EDT , Chest X-Ray 12/02/23 11:18 IMPRESSION: Hyperinflation. The lungs are clear. Electronically Signed: Taz Evangelista MD at 12:17 EDT ,
--- NOTE | 2023-12-02 17:15 | CON.PCM.SX_ITS ---
Assessment & Plan Assessment/Plan (1) Expressive aphasia: (2) Carotid artery disease: PLAN: Plan CTA revealed <50% R ICA stenosis and 50-69% L ICA stenosis with carotid duplex showing <50% stenosis of the bilateral ICAs. Brain MRI report reviewed, no acute infarct identified. Neuro consult is still pending. No plans for vascular surgical intervention on an inpatient basis at this time. Agree with re- initiating ASA and continuing high-intensity statin. Will plan for close follow- up on an outpatient basis. HPI Consult Data Date of Consult: 12/02/23 HPI Narrative HPI Narrative: RO SWAN, is a 83 M who presented to the [facility] ER 12/02/23 as a stroke alert with garbled speech and L facial droop noted in the ER. Per ER, his noticed his speech was garbled when he woke up this morning, his last known well was 11/[address] brain was negative. He was not a TNK candidate. He was admitted for further workup. He had CTA Head and Neck which reported <50% R ICA stenosis, 50-69% L ICA stenosis. He had a carotid doppler which showed <50% stenosis bilateral ICAs. He had Brain MRI which did not show any acute infarct, only old basal ganglia lacunar infarcts. Neuro consult is pending. The patient was resting comfortably in bed when I saw him, no family was present at bedside at that time. He was alert and oriented to self. He was able to answer yes/no questions and provide short, 1-2 word responses but had notable aphasia with any longer responses. He was able to follow commands. No motor weakness or sensory deficit. No facial droop appreciated. Due to his aphasia, history is primarily from chart review. He is legally blind. 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 He follows with Dr. Concepcion. He has CAD s/p CABG and PCI, HFpEF, paroxysmal Afib (on Eliquis), HTN, HLD. It does not appear that he was on ASA at home, but he was taking atorvastatin. [facility] Medical History Lower extremity edema BPH (benign prostatic hyperplasia) Fatigue Wears hearing aid Wears dentures Wears glasses Arthritis High cholesterol Gastric reflux COPD (chronic obstructive pulmonary disease) History of echocardiogram History of stress test Cardiology follow-up encounter History of atrial fibrillation Sleep apnea Anemia Former smoker Atrial fibrillation Coronary artery disease Hypertension Fatigue (HFpEF) heart failure with preserved ejection fraction Insomnia DDD (degenerative disc disease), lumbar Thrombocytopenia Actinic skin damage Esophageal reflux Macular degeneration (senile) of retina, unspecified Mixed hyperlipidemia TIA (transient ischemic attack) Syncope Cardiac arrest with ventricular fibrillation Essential (primary) hypertension HLD (hyperlipidemia) Paroxysmal A-fib CVA (cerebral vascular accident) (05/2018) Acute coronary thrombosis not resulting in myocardial infarction Home Medications ?Medication ?Instructions ?Recorded ?Last Taken ?Type fluticasone furoate 100 1 inh inhalation DAILY 12/24/21 12/01/23 History mcg-vilanterol 25 mcg/dose inhalation powder (Breo Ellipta) pantoprazole 40 mg tablet,delayed 40 mg PO DAILY #60 tabs 07/14/22 12/01/23 Rx release (Protonix) isosorbide mononitrate 30 mg 30 mg PO DAILY #90 tabs 02/23/23 12/01/23 Rx tablet,extended release 24 hr nitroglycerin 0.4 mg sublingual 0.4 mg sublingual Q5M PRN Chest 02/23/23 Unknown Rx tablet Pain #25 tabs sotalol 120 mg tablet 120 mg PO BID heart/blood pressure 02/23/23 12/01/23 Rx #180 tabs furosemide 40 mg tablet 40 mg PO DAILY #90 tabs 03/23/23 12/01/23 Rx albuterol sulfate 90 mcg/actuation 1 puff inhalation Q4H PRN 09/24/23 Unknown History aerosol inhaler shortness of breath or wheezing bupropion HCl 100 mg tablet,12 hr 100 mg PO DAILY 09/24/23 12/01/23 History sustained-release tamsulosin 0.4 mg capsule 0.4 mg PO DAILY prostate #30 caps 10/06/23 12/01/23 Rx apixaban 5 mg tablet (Eliquis) 5 mg PO BID #180 tabs 10/17/23 12/01/23 Rx atorvastatin 80 mg tablet 80 mg PO DAILY 12/02/23 12/01/23 History Allergy/AdvReac Type Severity Reaction Status Date / Time lisinopril Allergy Severe Cough Verified 10/06/23 13:25 oxycodone (From Percocet) Allergy Severe Hallucinati Verified 10/06/23 13:25 ons pravastatin Allergy Intermediate Myalgia Verified 10/06/23 13:25 Quinolones Allergy Unknown Unknown Verified 10/06/23 13:25 pregabalin (From Lyrica) AdvReac Severe depression Verified 10/06/23 13:25 Family History Mother No problems noted. Father Cancer Sister Cancer Surgical History History of cardiac catheterization Hx of hernia repair Hx of colonoscopy History of left heart catheterization (09/2016) History of incisional hernia repair History of coronary artery stent placement (08/06/12) H/O coronary artery bypass surgery (03/27/04) History of tonsillectomy History of cholecystectomy Social History Smoking Status: Former smoker pack-years: 37 Tobacco: How many years used: 25 how long ago did patient quit smokin quit status: has quit before alcohol intake: current alcohol intake frequency: 0-2 drinks per day Alcohol type: beer and hard liquor substance use type: does not use caffeine: Yes Type: coffee Number of servings: 2 what type of physical activity do you participate in: none seatbelt use: always do you feel safe at home: Yes Physical Exam Const alert and well nourished General Appearance: cooperative; Negative for in distress Orientation / Consciousness: oriented to person HEENT normocephalic, head/scalp atraumatic, hearing grossly normal bilaterally and external ears normal Nose: external nose normal Eyes General Eye: normal appearance of both eyes Neck General: normal visual inspection and trachea midline Resp normal respiratory effort, normal air movement, no retractions and no use of accessory muscles Effort and Inspection: Negative for respiratory distress, labored, grunting or stridor Cardio regular rate and regular rhythm Extremity no clubbing, cyanosis or edema Skin no rashes or lesions noted Neuro CN's II-XII intact bilaterally, no focal motor deficits and no sensory deficits noted Neuro Narrative: Expressive aphasia, oriented to self as he is able to state his name, follows commands Psych Appearance: grossly normal Attitude: calm Activity / Motor Behavior: appropriate eye contact Lab / Micro Data 12/02/23 10:45 12/02/23 10:45 Labs: Laboratory Results - last 24 hr 12/02/23 10:45: WBC 7.8, RBC 4.47 L, Hgb 15.9, Hct 45.8, MCV 102.5 H, MCH 35.6 H , MCHC 34.7, RDW Std Deviation 45.8 H, RDW Coeff of Randall 12.2, Plt Count 154, MPV 10.4, Immature Gran % (Auto) 0.300, Neut % (Auto) 71.7 H, Lymph % (Auto) 17.3 L, Monroe % (Auto) 8.9, Eos % (Auto) 1.3, Baso % (Auto) 0.5, Absolute Neuts (auto) 5.6, Absolute Lymphs (auto) 1.35, Nucleated RBC % 0, PT 16.1 H, INR 1.3, APTT 36.9 H, Sodium 135 L, Potassium 4.2, Chloride 102, Carbon Dioxide 29.0, Anion Gap 4 L, BUN 10, Creatinine 1.02, Estim Creat Clear Calc 55.70, Est GFR (MDRD) Af Amer 90, Est GFR (MDRD) Non-Af 74, BUN/Creatinine Ratio 9.8 L, Glucose 124 H, Hemoglobin A1c 5.3, Calcium 9.0, Troponin I High Sens 4 Imaging Radiology Impression Brain CT 12/02/23 10:47 IMPRESSION: Chronic involutional changes of the brain. N.B. : The above Results were Read Back by Taz Evangelista MD to Duy Lazaro DO, and understanding confirmed on 12/02/2023 10:56:27 (ET). Electronically Signed: Taz Evangelista MD at 10:57 EDT , ADDENDUM: 12/02/23 1104 IMPRESSION: Chronic involutional changes of the brain. N.B. : The above Results were Read Back by Taz Evangelista MD to Duy Lazaro DO, and understanding confirmed on 12/02/2023 10:56:27 (ET). Electronically Signed: Taz Evangelista MD at 10:57 EDT , Head/Neck CTA 12/02/23 10:47 IMPRESSION: Plaque formation at the origin of the right internal carotid artery causing less than 50% narrowing. 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 Calcific plaques seen in the petrous portion of the left internal carotid artery. N.B. : The above Results were Read Back by Taz Evangelista MD to Duy Lazaro and understanding confirmed on 12/02/2023 11:12:07 (ET). Electronically Signed: Taz Evangelista MD at 11:13 EDT , ADDENDUM: 12/02/23 1120 IMPRESSION: Plaque formation at the origin of the right internal carotid artery causing less than 50% narrowing. 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 Calcific plaques seen in the petrous portion of the left internal carotid artery. N.B. : The above Results were Read Back by Taz Evangelista MD to Duy Lazaro and understanding confirmed on 12/02/2023 11:12:07 (ET). Electronically Signed: Taz Evangelista MD at 11:13 EDT , Chest X-Ray 12/02/23 11:18 IMPRESSION: Hyperinflation. The lungs are clear. Electronically Signed: Taz Evangelista MD at 12:17 EDT ,
--- NOTE | 2023-12-02 17:30 | NURSING ---
Patient off the floor for MRI at this time
--- NOTE | 2023-12-02 19:21 | CT_ITS ---
INDICATION: fell. hit head. Please evaluate cervical spine as well, axial bone format created. EXAMINATION: CT NECK - CT Soft Tissue Neck W/O Contrast Injection TECHNIQUE: Multiple axial images were obtained of the neck. A radiation dose optimization technique was used for this scan. IV Contrast dosage and agent: None. COMPARISON: CT head on same day. FINDINGS: Normal cervical spine alignment. No fracture or acute compression deformity. Mid cervical facet arthropathy most prominent right C5-C6. Mild mid and inferior cervical vertebral bridging osteophytes. Diffuse small posterior disc osteophyte complexes with up to moderate spinal canal stenosis at C3-C4 and C4-C5. Up to severe osseous neural foraminal stenosis at right C4-C5 and left C3-C4. Pharyngeal tonsils are symmetric, unremarkable. Parapharyngeal fat is preserved. Base of tongue is grossly symmetric. Unremarkable carotid and submandibular glands without ductal ectasia. Normal epiglottis. No prevertebral soft tissue thickening. Unremarkable thyroid. No cervical adenopathy. Unremarkable orbits. Lung apices are clear. CT/Soft Tissue Neck without Contr IMPRESSION: No evidence of acute cervical spinal injury. Senescent changes with up to moderate spinal canal stenosis and multilevel severe neural foraminal stenosis as above. Electronically Signed: Piyush Dinh MD at 21:01 EDT ,
--- NOTE | 2023-12-02 19:21 | CT_ITS ---
INDICATION: fall. hit head EXAMINATION: CT BRAIN - CT Head or Brain W/O Contrast Injection TECHNIQUE: Multiple axial images were obtained of the head without intravenous contrast. A radiation dose optimization technique was used for this scan. IV Contrast dosage and agent: None. COMPARISON: FINDINGS: BRAIN PARENCHYMA: No intra- or extra-axial hemorrhage. No evidence of acute infarct. Sequela of old bilateral basal ganglial lacunar infarcts. No intracranial mass or mass effect. Moderate periventricular and subcortical white matter hypodense chronic small vessel white matter ischemic change. There is preservation of the wakefield/white matter interface. Posterior fossa structures are unremarkable. Carotid and vertebral atherosclerosis. CSF SPACES: Cerebral volume appropriate for age. No hydrocephalus. Basal cisterns are patent. CALVARIUM, SKULL BASE, PARANASAL SINUSES AND MASTOID AIR CELLS: Posterior parietal superficial scalp hematoma. No radiodense soft tissue foreign body. No acute osseous finding. Paransasal sinuses are clear. Mastoid air cells are clear. ORBITS: Both globes, extraocular muscles, optic nerves and retrobulbar fat appear unremarkable. ASPECTS Score for Acute Strokes: 10 CT/Brain/Head without Contrast IMPRESSION: Posterior parietal occipital superficial scalp hematoma without evidence of underlying fracture No CT evidence of acute intracranial hemorrhage or injury. Moderate senescent changes with sequela of old bilateral basal ganglial lacunar infarcts. Electronically Signed: Piyush Dinh MD at 20:44 EDT ,
[2023-12-02] MEDS: Albuterol 2.5 MG/3 ML VIAL.NEB. INHALATION (19:29)
[2023-12-02] MEDS: Budesonide Respules 0.5 MG/2 ML AMPUL.NEB. INHALATION (19:29)
[2023-12-02] MEDS: Ondansetron 4 MG/2 ML Vial IV (22:59)
[2023-12-02] MEDS: Sotalol Hydrochloride 80 MG Tablet 120 MG PO (23:00)
--- NOTE | 2023-12-02 23:05 | PCM.HOSP.N ---
Hospitalist Note Patient was found. Patient apparently hit his head he had a hematoma. Patient was sent down for head CT and CT neck, both of which were unremarkable exception of the hematoma. I will put a hold on his apixaban for now.
[2023-12-03] VITALS (9 sets, daily range): BP systolic 109–155; BP diastolic 61–90; PULSE 67–88; RESP 16–20; TEMP 36.3–37.1; O2SAT 93–97; BMI 30.7
[2023-12-03] MEDS: Budesonide Respules 0.5 MG/2 ML AMPUL.NEB. INHALATION (06:57)
[2023-12-03] MEDS: Albuterol 2.5 MG/3 ML VIAL.NEB. INHALATION ×3 (06:58→19:31)
[2023-12-03] MEDS: Sotalol Hydrochloride 80 MG Tablet 120 MG PO ×2 (08:28→21:10)
[2023-12-03] MEDS: buPROPion (SR) 100 MG TABLET.SA PO (08:29)
[2023-12-03] MEDS: Isosorbide Mononitrate 30 MG Tablet PO (08:29)
[2023-12-03] MEDS: Furosemide 40 MG Tablet PO (08:30)
[2023-12-03] MEDS: Pantoprazole Sodium 40 MG Tablet PO (08:30)
[2023-12-03] MEDS: Tamsulosin HCl 0.4 MG Capsule PO (08:30)
--- NOTE | 2023-12-03 09:11 | CASEMGMT ---
Addendum entered by Miranda Wolff 12/03/23 10:15: Social Work SW did try to complete PHQ-9, however due to aphasia pt is not able to complete the PHQ-9 at this time. As per physician, pt did have a TIA. EMILY Farias Original Note: Social Work PHQ-9 not completed as pt did not have a stroke. EMILY Farias
[2023-12-03 09:23] LABS: Absolute Lymphocyte Count 1.17 X10^3/uL (0.83-4.51); Absolute Neutrophil Count 5.8 X10^3/uL (2.0-7.7); Basophil# 0.03 X10^3/uL; Basophil% 0.4 % (0-1); Eosinophil# 0.13 X10^3/uL; Eosinophils% 1.6 % (0-5); Hematocrit 43.4 % (40-54); Hemoglobin 15.5 g/dL (13.0-16.5); Lymphocyte # 1.17 X10^3/ul (0.83-4.51); Lymphocyte % 14.4 % (19-41); Mean Corp Hgb Conc 35.7 g/dL (32-36); Mean Corpuscular Hgb 36.2 pg (27.0-32.0); Mean Corpuscular Volume 101.4 fL (80-94); Mean Platelet Vol. 10.8 fl (6.2-12.0); Monocyte# 0.94 X10^3/uL; Monocyte% 11.6 % (0-10); NRBC Flagged by Analyzer 0 % (0-5); Neutrophil # 5.84 X10^3/uL (2.7-7.7); Neutrophil % 71.8 % (47-70); Platelet Count 155 K/mm3 (150-450); RBC Distribution Width CV 12.1 % (11.6-14.6); RBC Distribution Width SD 45.1 fl (35.1-43.9); Red Blood Count 4.28 M/mm3 (4.6-6.2); White Blood Count 8.1 K/mm3 (4.4-11.0)
[2023-12-03 09:55] LABS: Anion Gap 7 (5-15); BUN 9 mg/dL (7-18); BUN/Creat Ratio 9.9 RATIO (10-20); Calcium,Total 8.9 mg/dL (8.5-10.1); Chloride 98 mmol/L (98-107); Cholesterol 107 mg/dL (200); Creatinine, Serum 0.91 mg/dL (0.70-1.30); EST Glomerular Filtration Rate 84 mL/min (>60); Est Glom Filt Rate - Afr Amer 102 mL/min (>60); Estimated Creatinine Clearance 63.36 ml/min; Glucose 125 mg/dL (74-106); High Density Lipoprotein 35 mg/dL; Sodium Level 132 mmol/L (136-145); Triglycerides 148 mg/dL; Very Low Density Lipoprotein 30 mg/dL (5-40)
--- NOTE | 2023-12-03 10:54 | PN_ITS ---
Subjective Subjective Patient seen and examined. He was lethargic. He had a fall yesterday evening and sustained a scalp hematoma. Eliquis was held. He was able to answer a few questions and denied any fever, chills, chest pain or shortness of breath. Review of systems is otherwise negative. Objective Data Objective Data Vital Signs: Vital Signs Temp Pulse Resp BP Pulse Ox O2 Del Method 97.8 F 87 18 155/78 H 97 Room Air 12/03/23 10:00 12/03/23 10:00 12/03/23 10:00 12/03/23 10:00 12/03/23 10:00 12/03/23 10:00 Oxygen Delivery Method Room Air Weight: 190 lb 6.4 oz Body Mass Index (BMI) 30.7 Intake & Output: Intake and Output for Last 24 Hours 12/01/23 12/02/23 12/03/23 23:59 23:59 23:59 Intake Total 100 / 100 Output Total 500 / 500 Balance -400 / -400 Lab / Micro Data 12/03/23 08:34 12/03/23 08:34 Labs: Laboratory Results - last 24 hr 12/02/23 10:45: WBC 7.8, RBC 4.47 L, Hgb 15.9, Hct 45.8, MCV 102.5 H, MCH 35.6 H , MCHC 34.7, RDW Std Deviation 45.8 H, RDW Coeff of Randall 12.2, Plt Count 154, MPV 10.4, Immature Gran % (Auto) 0.300, Neut % (Auto) 71.7 H, Lymph % (Auto) 17.3 L, Mcleod % (Auto) 8.9, Eos % (Auto) 1.3, Baso % (Auto) 0.5, Absolute Neuts (auto) 5.6, Absolute Lymphs (auto) 1.35, Nucleated RBC % 0, PT 16.1 H, INR 1.3, APTT 36.9 H, Sodium 135 L, Potassium 4.2, Chloride 102, Carbon Dioxide 29.0, Anion Gap 4 L, BUN 10, Creatinine 1.02, Estim Creat Clear Calc 55.70, Est GFR (MDRD) Af Amer 90, Est GFR (MDRD) Non-Af 74, BUN/Creatinine Ratio 9.8 L, Glucose 124 H, Hemoglobin A1c 5.3, Calcium 9.0, Troponin I High Sens 4 12/03/23 08:34: WBC 8.1, RBC 4.28 L, Hgb 15.5, Hct 43.4, MCV 101.4 H, MCH 36.2 H , MCHC 35.7, RDW Std Deviation 45.1 H, RDW Coeff of Randall 12.1, Plt Count 155, MPV 10.8, Immature Gran % (Auto) 0.200, Neut % (Auto) 71.8 H, Lymph % (Auto) 14.4 L, Mcleod % (Auto) 11.6 H, Eos % (Auto) 1.6, Baso % (Auto) 0.4, Absolute Neuts (auto) 5.8, Absolute Lymphs (auto) 1.17, Nucleated RBC % 0, Sodium 132 L, Potassium 4.0, Chloride 98, Carbon Dioxide 27.0, Anion Gap 7, BUN 9, Creatinine 0.91, Estim Creat Clear Calc 63.36, Est GFR (MDRD) Af Amer 102, Est GFR (MDRD) Non-Af 84, BUN/Creatinine Ratio 9.9 L, Glucose 125 H, Calcium 8.9, Triglycerides 148, Cholesterol 107, LDL Cholesterol 42, VLDL Cholesterol 30, HDL Cholesterol 35 L Radiography Diagnostic Testing: Radiology Impression Brain CT 12/02/23 10:47 IMPRESSION: Chronic involutional changes of the brain. N.B. : The above Results were Read Back by Taz Evangelista MD to Duy Lazaro DO, and understanding confirmed on 12/02/2023 10:56:27 (ET). Electronically Signed: Taz Evangelista MD at 10:57 EDT , ADDENDUM: 12/02/23 1104 IMPRESSION: Chronic involutional changes of the brain. N.B. : The above Results were Read Back by Taz Evangelista MD to Duy Lazaro DO, and understanding confirmed on 12/02/2023 10:56:27 (ET). Electronically Signed: Taz Evangelista MD at 10:57 EDT , Head/Neck CTA 12/02/23 10:47 IMPRESSION: Plaque formation at the origin of the right internal carotid artery causing less than 50% narrowing. 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 Calcific plaques seen in the petrous portion of the left internal carotid artery. N.B. : The above Results were Read Back by Taz Evangelista MD to Duy Lazaro and understanding confirmed on 12/02/2023 11:12:07 (ET). Electronically Signed: Taz Evangelista MD at 11:13 EDT , ADDENDUM: 12/02/23 1120 IMPRESSION: Plaque formation at the origin of the right internal carotid artery causing less than 50% narrowing. 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 Calcific plaques seen in the petrous portion of the left internal carotid artery. N.B. : The above Results were Read Back by Taz Evangelista MD to Duy Lazaro and understanding confirmed on 12/02/2023 11:12:07 (ET). Electronically Signed: Taz Evangelista MD at 11:13 EDT , Chest X-Ray 12/02/23 11:18 IMPRESSION: Hyperinflation. The lungs are clear. Electronically Signed: Taz Evangelista MD at 12:17 EDT , Brain MRI 12/02/23 13:59 IMPRESSION: 1. No intracranial mass, hemorrhage, or acute territorial infarct. 2. Sequela of old basal ganglia lacunar infarcts. 3. Moderate senescent changes compatible with age.. 4. Mild sinus disease Electronically Signed: Piyush Dinh MD at 17:59 EDT , Brain CT 12/02/23 19:21 IMPRESSION: Posterior parietal occipital superficial scalp hematoma without evidence of underlying fracture No CT evidence of acute intracranial hemorrhage or injury. Moderate senescent changes with sequela of old bilateral basal ganglial lacunar infarcts. Electronically Signed: Piyush Dinh MD at 20:44 EDT Reading Location ID and State: [facility] / [place] Tel , Service support , Soft Tissue Neck CT 12/02/23 19:21 IMPRESSION: No evidence of acute cervical spinal injury. Senescent changes with up to moderate spinal canal stenosis and multilevel severe neural foraminal stenosis as above. Electronically Signed: Piyush Dinh MD at 21:01 EDT , Physical Exam Const alert Orientation / Consciousness: lethargic HEENT normocephalic, head/scalp atraumatic, moist oral mucous membranes and oropharynx normal HEENT Narrative: posterior scalp hematoma Eyes PERRL and EOMs intact bilaterally Neck no lymphadenopathy and supple Lymph Lymphatic: no lymphadenopathy noted and no lymphedema noted Resp normal respiratory effort, normal air movement and clear to auscultation bilaterally Cardio regular rate, regular rhythm, S1 normal heart sound, S2 normal heart sound and no murmurs GI normal to inspection, nondistended, normoactive bowel sounds, soft to palpation, non-tender and non-distended Extremity normal capillary refill, no clubbing, cyanosis or edema and no calf tenderness Skin Skin Narrative: posterior scalp hematoma Neuro no focal motor deficits, no sensory deficits noted and deep tendon reflexes 2+ bilaterally Neuro Narrative: still has some expressive aphasia, no numbness or tingling Motor Exam: general weakness Psych Psych Narrative: lethargic Assessment & Plan Assessment/Plan (1) Expressive aphasia: PLAN: #Expressive aphasia to rule out a stroke * initial CT of the brain shows no acute intracranial pathology. His last known well was 6 PM on the night before admission and found him with expressive aphasia. Was not a candidate for TNK * CTA head and neck showed plaque formation at the origin of the right internal carotid artery causing less than 50% stenosis and stenosis at the origin of the left internal carotid artery causing between 50 to 69% stenosis and calcified plaque seen in the petrous portion of the left internal carotid artery. * He did have a carotid ultrasound from January 2023 which showed irregular calcific plaque at the proximal right internal carotid artery with less than 50% stenosis and greater than 50% stenosis of the right external carotid artery with minimal plaque at the proximal left internal carotid artery with less than 50% stenosis and less than 50% stenosis of the left external carotid artery. It does appear that the stenosis in the left internal carotid artery has worsened. * 2D echo ordered and pending * MRI of the brain showed no evidence of a stroke, no intracranial mass, hemorrhage or acute territorial effect and showed sequelae of old basal ganglia lacunar infarcts. * PT.OT On board. * on aspirin and high intensity statin * neurology consulted. Await rec's * #Carotid stenosis * CT as above. * On aspirin and high intensity statin. Vascular surgery consulted. * Await recs. * * #Posterior scalp hematoma due to mechanical fall * Patient fell yesterday in the evening. CT of the brain was repeated and showed a posterior scalp hematoma. Eliquis therefore held. * PT OT on board. Fall precautions. * #History of A-fib: On Eliquis and sotalol. Eliquis on hold this morning due to mechanical fall and resultant posterior scalp hematoma. #CAD s/p CABG: On aspirin and Plavix as well as high intensity statin #BPH: On Flomax #Depression: On bupropion #Benign essential hypertension:hold BP meds to allow for permissive hypertension in case of a stroke. DVT prophylaxis: on eliquis Code status: full code * Patient counseled extensively about different types of CODE STATUS including full code, DNR CCA and DNR CCA. Patient elects to be full code. Total [id number] time 17 minutes.
--- NOTE | 2023-12-03 10:55 | CASEMGMT ---
NIVIA COLE note: RN CM to room. Pt sleeping and @ bedside. Introduced self and role. ST @ bedside and just finishing up w/ST eval--minced/moist diet recommended and MBS. PT/OT evals completed yesterday and are to work w/pt again today. made aware therapy will provide recommendations and CM to follow for any discharge needs. MOSHER form explained re: Observation status for treatment of expressive aphasia.? Explained hospitalization will be paid per?his insurance policy for Outpatient billing?and condition will continue to be evaluated for Inpt necessity. Also let know that [facility] sends paper in the billing packet with their phone number if questions arise. verbalizes understanding and does not have further questions. ?Form signed, copy made and placed in chart, and original given to . Plan: TBD, pending progress w/therapy. Ja LABOY RN CM
--- NOTE | 2023-12-03 12:45 | CON.PCM.NE_ITS ---
Assessment and Plan: Stroke Assessment/Plan RO SWAN is a 83 M with a history of CAD and COVID who presents for evaluation of expressive aphasia for a few days. brought him in day before to get him evaluated. His CTA shows carotid stenosis, vascular consulted. His MRI does not show CVA. As his sx still perists, he may need repeat MRI with contrast and LP to rule out encephalitis. Neurological examination shows expressive aphasia. Neuroimaging shows no acute CVA - Anti-platelet medication: Aspirin 81 mg daily - Occupational/ Physical therapy consults - NPO until swallow evaluation. IVF until able to take po - DVT prophylaxis with SCDs and heparin SQ - Vascular risk factor modification. The following are the recommended guidelines: LDL Goal < 70 Smoking Cessation Diabetes Management penitentiary blood pressure control should achieve <130/80 mmHg. BP management should aim to achieve long-term contorl in a reasonable amount of time, taking into consideration the individual patient's requirements and characteristics. Weight Management: Goal for BMI is 18.5 -24.9 kg/m2 Alcohol: No more than 2 drinks/day for men or 1 drink/day for non- women - Promote lifestyle modification: weight control, physical activity, moderation of alcohol intake, moderate sodium intake. Followup with PCP in 1-2 weeks, and in Neurology clinic in 6-[address] Rey HPI Consult Data Date of Consult: 12/03/23 HPI Narrative HPI Narrative: RO SWAN, is a 83 M who presents [facility] Medical History Lower extremity edema BPH (benign prostatic hyperplasia) Fatigue Wears hearing aid Wears dentures Wears glasses Arthritis High cholesterol Gastric reflux COPD (chronic obstructive pulmonary disease) History of echocardiogram History of stress test Cardiology follow-up encounter History of atrial fibrillation Sleep apnea Anemia Former smoker Atrial fibrillation Coronary artery disease Hypertension Fatigue (HFpEF) heart failure with preserved ejection fraction Insomnia DDD (degenerative disc disease), lumbar Thrombocytopenia Actinic skin damage Esophageal reflux Macular degeneration (senile) of retina, unspecified Mixed hyperlipidemia TIA (transient ischemic attack) Syncope Cardiac arrest with ventricular fibrillation Essential (primary) hypertension HLD (hyperlipidemia) Paroxysmal A-fib CVA (cerebral vascular accident) (05/2018) Acute coronary thrombosis not resulting in myocardial infarction Home Medications ?Medication ?Instructions ?Recorded ?Last Taken ?Type fluticasone furoate 100 1 inh inhalation DAILY 12/24/21 12/01/23 History mcg-vilanterol 25 mcg/dose inhalation powder (Breo Ellipta) pantoprazole 40 mg tablet,delayed 40 mg PO DAILY #60 tabs 07/14/22 12/01/23 Rx release (Protonix) isosorbide mononitrate 30 mg 30 mg PO DAILY #90 tabs 02/23/23 12/01/23 Rx tablet,extended release 24 hr nitroglycerin 0.4 mg sublingual 0.4 mg sublingual Q5M PRN Chest 02/23/23 Unknown Rx tablet Pain #25 tabs sotalol 120 mg tablet 120 mg PO BID heart/blood pressure 02/23/23 12/01/23 Rx #180 tabs furosemide 40 mg tablet 40 mg PO DAILY #90 tabs 03/23/23 12/01/23 Rx albuterol sulfate 90 mcg/actuation 1 puff inhalation Q4H PRN 09/24/23 Unknown History aerosol inhaler shortness of breath or wheezing bupropion HCl 100 mg tablet,12 hr 100 mg PO DAILY 09/24/23 12/01/23 History sustained-release tamsulosin 0.4 mg capsule 0.4 mg PO DAILY prostate #30 caps 10/06/23 12/01/23 Rx apixaban 5 mg tablet (Eliquis) 5 mg PO BID #180 tabs 10/17/23 12/01/23 Rx atorvastatin 80 mg tablet 80 mg PO DAILY 12/02/23 12/01/23 History Allergy/AdvReac Type Severity Reaction Status Date / Time lisinopril Allergy Severe Cough Verified 10/06/23 13:25 oxycodone (From Percocet) Allergy Severe Hallucinati Verified 10/06/23 13:25 ons pravastatin Allergy Intermediate Myalgia Verified 10/06/23 13:25 Quinolones Allergy Unknown Unknown Verified 10/06/23 13:25 pregabalin (From Lyrica) AdvReac Severe depression Verified 10/06/23 13:25 Family History Mother No problems noted. Father Cancer Sister Cancer Surgical History History of cardiac catheterization Hx of hernia repair Hx of colonoscopy History of left heart catheterization (09/2016) History of incisional hernia repair History of coronary artery stent placement (08/06/12) H/O coronary artery bypass surgery (03/27/04) History of tonsillectomy History of cholecystectomy Social History Smoking Status: Former smoker pack-years: 37 Tobacco: How many years used: 25 how long ago did patient quit smokin quit status: has quit before alcohol intake: current alcohol intake frequency: 0-2 drinks per day Alcohol type: beer and hard liquor substance use type: does not use caffeine: Yes Type: coffee Number of servings: 2 what type of physical activity do you participate in: none seatbelt use: always do you feel safe at home: Yes Vital Signs Vital Signs Vital Signs: 12/02/23 12:49 12/02/23 13:35 12/02/23 14:00 Temperature 98.2 F 97.8 F 98.0 F Temperature Source Oral Temporal Pulse Rate 622 H 56 L 62 Pulse Strength Respiratory Rate 15 18 16 Respiratory Effort Respiratory Depth Respiratory Pattern Blood Pressure 146/77 H 177/102 H 159/69 H Blood Pressure Mean 100 127 99 Blood Pressure Source Monitor Monitor Blood Pressure Position Semi-Fowlers Semi-Fowlers Blood Pressure Location Left Arm Left Arm Pulse Ox 97 100 96 Oxygen Delivery Method Room Air Room Air 12/02/23 16:54 12/02/23 18:15 12/02/23 19:29 Temperature Temperature Source Pulse Rate 60 80 Pulse Strength Respiratory Rate 15 20 H Respiratory Effort Respiratory Depth Respiratory Pattern Normal Blood Pressure 146/83 H Blood Pressure Mean 104 Blood Pressure Source Monitor Blood Pressure Position Semi-Fowlers Blood Pressure Location Left Arm Pulse Ox 97 97 Oxygen Delivery Method Room Air Room Air 12/02/23 19:29 12/02/23 22:00 12/02/23 22:00 Temperature Temperature Source Pulse Rate 76 Pulse Strength Normal (2+) Respiratory Rate Respiratory Effort Non-Labored Respiratory Depth Normal Respiratory Pattern Normal Blood Pressure Blood Pressure Mean Blood Pressure Source Blood Pressure Position Blood Pressure Location Pulse Ox 96 98 Oxygen Delivery Method Room Air Room Air 12/02/23 22:00 12/03/23 02:00 12/03/23 06:00 Temperature 97.9 F 98.7 F 98.3 F Temperature Source Temporal Oral Oral Pulse Rate 82 88 78 Pulse Strength Respiratory Rate 16 16 16 Respiratory Effort Respiratory Depth Respiratory Pattern Blood Pressure 124/83 H 145/90 H 140/68 H Blood Pressure Mean 96 108 92 Blood Pressure Source Monitor Monitor Monitor Blood Pressure Position Semi-Fowlers Semi-Fowlers Semi-Fowlers Blood Pressure Location Right Arm Right Arm Right Arm Pulse Ox 95 95 94 Oxygen Delivery Method Room Air Room Air Room Air 12/03/23 06:57 12/03/23 06:57 12/03/23 08:05 Temperature 97.4 F L Temperature Source Temporal Pulse Rate 85 68 Pulse Strength Respiratory Rate 20 H 16 Respiratory Effort Respiratory Depth Respiratory Pattern Normal Blood Pressure 155/73 H Blood Pressure Mean 100 Blood Pressure Source Monitor Blood Pressure Position Semi-Fowlers Blood Pressure Location Right Arm Pulse Ox 96 96 Oxygen Delivery Method Room Air Room Air 12/03/23 08:10 12/03/23 08:12 12/03/23 10:00 Temperature 97.8 F Temperature Source Temporal Pulse Rate 87 Pulse Strength Normal (2+) Respiratory Rate 18 Respiratory Effort Non-Labored Respiratory Depth Normal Respiratory Pattern Normal Blood Pressure 155/78 H Blood Pressure Mean 103 Blood Pressure Source Monitor Blood Pressure Position Semi-Fowlers Blood Pressure Location Right Arm Pulse Ox 97 Oxygen Delivery Method Room Air Room Air Weight Weight: 86.364 kg Body Mass Index (BMI) 30.7 EEG Results Procedure Details EEG Procedure Details: RO SWAN is a 83 year old M with a past medical history of , who presents for evaluation of Electroencephalogram on DATE at TIME NIHSS NIHSS Nursing Documentation NIHSS Nursing Documentation: NIHSS: Ischemic Stroke/TIA Start: 12/02/23 13:59 Text: For ICU Patients: NIH sroke scale at Status: Complete presentation and every 2 hours or with change in RN caregiver Freq: [id number] Protocol: Activity Type Activity Date Activity User E-sign Co-sign Detail Recorded Client Recorded Date Recorded By Document 12/02/23 14:00 KES desktop 12/02/23 15:30 KES 12/02/23 14:00 NIH Stroke Scale [NIHSS] A score of 0 is normal or asymptomatic . Total possible score is 42. Inpatient: RN or Physician to activate a stroke alert for onset of new stroke symptoms or with NIHSS increase >/= 3 points. Following change in neurological status, NIHSS will be performed per physician order or more frequently PRN. -1a. Level of Consciousness Alert; keenly responsive -1b. LOC Questions Answers one question correctly. -1c. LOC Commands Performs both tasks correctly . -2. Best Gaze Normal -3. Visual No visual loss -4. Facial Palsy Normal symmetrical movements -5a. Left Arm No drift; arm holds 90 (or 45 ) degrees for full 10 seconds -5b. Right Arm No drift; arm holds 90 (or 45 ) degrees for full 10 seconds -6a. Left Leg No drift; leg holds 30-degree position for full 5 seconds -6b. Right Leg No drift; leg holds 30-degree position for full 5 seconds -7. Limb Ataxia Absent -8. Sensory Mild-to- moderate sensory loss; -9. Best Language Severe aphasia; -10. Dysarthria Normal -11. Extinction and Inattention No abnormality -Total 4 Query Text:A score of 0 is normal or asymptomatic. Total possible score is 42 . ED: Notify Physician for NIHSS increase by > / = 3 points. Inpatient: RN or Physician to activate a stroke alert for NIHSS increase of > / = 3 points. Coma Scale [Assess] -Eye Opening Spontaneous -Motor Obeys Commands -Verbal Oriented [Total] -Coma Scale Total 15 NIHSS: Ischemic Stroke/TIA Start: 12/02/23 13:59 Text: For PCU Patients: NIH and Neuro Check every 4 Status: Active hours, PRN and with change in RN caregiver. Freq: [id number] Protocol: Activity Type Activity Date Activity User E-sign Co-sign Detail Recorded Client Recorded Date Recorded By Document 12/03/23 10:00 [facility] [id number] 12/03/23 10:04 [facility] 12/03/23 10:00 NIH Stroke Scale [NIHSS] A score of 0 is normal or asymptomatic . Total possible score is 42. Inpatient: RN or Physician to activate a stroke alert for onset of new stroke symptoms or with NIHSS increase >/= 3 points. Following change in neurological status, NIHSS will be performed per physician order or more frequently PRN. -1a. Level of Consciousness Not alert; -1b. LOC Questions Answers neither question correctly. -1c. LOC Commands Performs one task correctly. -2. Best Gaze Normal -3. Visual No visual loss -4. Facial Palsy Normal symmetrical movements -5a. Left Arm No drift; arm holds 90 (or 45 ) degrees for full 10 seconds -5b. Right Arm No drift; arm holds 90 (or 45 ) degrees for full 10 seconds -6a. Left Leg No drift; leg holds 30-degree position for full 5 seconds -6b. Right Leg No drift; leg holds 30-degree position for full 5 seconds -7. Limb Ataxia Absent -8. Sensory Normal; no sensory loss -9. Best Language Severe aphasia; -10. Dysarthria Mild-to- moderate dysarthria; -11. Extinction and Inattention No abnormality -Total 7 Query Text:A score of 0 is normal or asymptomatic. Total possible score is 42 . ED: Notify Physician for NIHSS increase by > / = 3 points. Inpatient: RN or Physician to activate a stroke alert for NIHSS increase of > / = 3 points. Coma Scale [Assess] -Eye Opening Spontaneous -Motor Obeys Commands -Verbal Confused [Total] -Coma Scale Total 14 Lab / Micro Data 12/03/23 08:34 12/03/23 08:34 Labs: Laboratory Results - last 24 hr 12/02/23 10:45: Hemoglobin A1c 5.3 12/03/23 08:34: WBC 8.1, RBC 4.28 L, Hgb 15.5, Hct 43.4, MCV 101.4 H, MCH 36.2 H , MCHC 35.7, RDW Std Deviation 45.1 H, RDW Coeff of Randall 12.1, Plt Count 155, MPV 10.8, Immature Gran % (Auto) 0.200, Neut % (Auto) 71.8 H, Lymph % (Auto) 14.4 L , Garland % (Auto) 11.6 H, Eos % (Auto) 1.6, Baso % (Auto) 0.4, Absolute Neuts (auto) 5.8, Absolute Lymphs (auto) 1.17, Nucleated RBC % 0, Sodium 132 L, Potassium 4.0, Chloride 98, Carbon Dioxide 27.0, Anion Gap 7, BUN 9, Creatinine 0.91, Estim Creat Clear Calc 63.36, Est GFR (MDRD) Af Amer 102, Est GFR (MDRD) Non-Af 84, BUN/Creatinine Ratio 9.9 L, Glucose 125 H, Calcium 8.9, Triglycerides 148, Cholesterol 107, LDL Cholesterol 42, VLDL Cholesterol 30, HDL Cholesterol 35 L Imaging Radiology Impression Brain MRI 12/02/23 13:59 IMPRESSION: 1. No intracranial mass, hemorrhage, or acute territorial infarct. 2. Sequela of old basal ganglia lacunar infarcts. 3. Moderate senescent changes compatible with age.. 4. Mild sinus disease Electronically Signed: Piyush Dinh MD at 17:59 EDT Reading Location ID and State: [facility] / [place] Tel , Service support , Echocardiogram 12/02/23 13:59 Interpretation Summary The estimated ejection fraction is 60 %. No evidence for diastolic dysfunction. Trivial mitral valve insufficiency. Ordering Physician: Hina Quarles Referring Physician: Jose Wolfe Performed By: Adelaide Bauer, NANI, RVT Brain CT 12/02/23 19:21 IMPRESSION: Posterior parietal occipital superficial scalp hematoma without evidence of underlying fracture No CT evidence of acute intracranial hemorrhage or injury. Moderate senescent changes with sequela of old bilateral basal ganglial lacunar infarcts. Electronically Signed: Piyush Dinh MD at 20:44 EDT Reading Location ID and State: [facility] / [place] Tel , Service support , Soft Tissue Neck CT 12/02/23 19:21 IMPRESSION: No evidence of acute cervical spinal injury. Senescent changes with up to moderate spinal canal stenosis and multilevel severe neural foraminal stenosis as above. Electronically Signed: Piyush Dinh MD at 21:01 EDT Reading Location ID and State: [facility] / [place] Tel , Service support , Active Medications Active Medications Active Medications: Current Medications Generic Name Dose Route Start Last Admin Trade Name Freq PRN Reason Stop Dose Admin Acetaminophen 650 mg 12/02/23 21:31 Acetaminophen 325 Mg Tablet PO Q4H PRN PRN Pain 1-10 or Fever Albuterol Sulfate 2.5 mg 12/02/23 14:15 Albuterol 2.5 Mg/3 Ml Vial.Neb. INHALATION Q4H PRN shortness of breath or wheezing Albuterol Sulfate 2.5 mg 12/02/23 14:45 12/03/23 12:44 Albuterol 2.5 Mg/3 Ml Vial.Neb. INHALATION 2.5 mg Q6HWA.RT AMANDA Administration Apixaban 5 mg 12/02/23 22:00 12/02/23 21:35 Apixaban 5 Mg Tablet PO Not Given BID AMANDA Atorvastatin Calcium 80 mg 12/02/23 22:00 12/02/23 23:04 Atorvastatin Calcium 80 Mg Tablet PO Not Given QHS AMANDA Budesonide 0.5 mg 12/02/23 14:45 12/03/23 06:57 Budesonide Respules 0.5 Mg/2 Ml Ampul.Neb. INHALATION 0.5 mg Q12H.RT AMANDA Administration Bupropion HCl 100 mg 12/03/23 10:00 12/03/23 08:29 Bupropion (Sr) 100 Mg Tablet.Sa PO 100 mg DAILY AMANDA Administration Furosemide 40 mg 12/03/23 10:00 12/03/23 08:30 Furosemide 40 Mg Tablet PO 40 mg DAILY AMANDA Administration Protocol Isosorbide Mononitrate 30 mg 12/03/23 10:00 12/03/23 08:29 Isosorbide Mononitrate 30 Mg Tablet PO 30 mg DAILY AMANDA Administration Protocol Nitroglycerin 0.4 mg 12/02/23 14:17 Nitroglycerin (Inpatient Use) 0.4 Mg Tab.Subl SL Q5M PRN CARDIAC/CHEST PAIN Nutritional Formula (Lactose Free) 120 ml 12/02/23 17:00 12/03/23 12:34 Ensure Plus High Protein 120 Ml Liquid PO Not Given TIDCM AMANDA Ondansetron HCl 4 mg 12/02/23 13:59 12/02/23 22:59 Ondansetron 4 Mg/2 Ml Vial IV 4 mg Q8H PRN PRN Administration NAUSEA/VOMITING Pantoprazole Sodium 40 mg 12/03/23 10:00 12/03/23 08:30 Pantoprazole Sodium 40 Mg Tablet PO 40 mg DAILY AMANDA Administration Sotalol HCl 120 mg 12/02/23 22:00 12/03/23 08:28 Sotalol Hydrochloride 80 Mg Tablet PO 120 mg BID AMANDA Administration Tamsulosin HCl 0.4 mg 12/03/23 10:00 12/03/23 08:30 Tamsulosin Hcl 0.4 Mg Capsule PO 0.4 mg DAILY AMANDA Administration
--- NOTE | 2023-12-03 16:10 | CASEMGMT ---
Social Work Pt did not do as well today with therapy. If pt does not improve with therapy and is still here Tuesday, SW/CM will follow up for appropriate discharge plan. EMILY Farias
[2023-12-03] MEDS: Atorvastatin Calcium 80 MG Tablet PO (21:10)
[2023-12-04] VITALS (8 sets, daily range): BP systolic 101–154; BP diastolic 60–82; PULSE 65–86; RESP 16–20; TEMP 35.9–36.8; O2SAT 92–97; BMI 30.7
[2023-12-04 06:23] LABS: Absolute Lymphocyte Count 1.56 X10^3/uL (0.83-4.51); Absolute Neutrophil Count 5.7 X10^3/uL (2.0-7.7); Basophil# 0.02 X10^3/uL; Basophil% 0.2 % (0-1); Eosinophil# 0.19 X10^3/uL; Eosinophils% 2.2 % (0-5); Hemoglobin 14.4 g/dL (13.0-16.5); Lymphocyte # 1.56 X10^3/ul (0.83-4.51); Lymphocyte % 18.3 % (19-41); Mean Platelet Vol. 10.6 fl (6.2-12.0); Monocyte% 12.9 % (0-10); NRBC Flagged by Analyzer 0 % (0-5); Neutrophil # 5.65 X10^3/uL (2.7-7.7); Neutrophil % 66.2 % (47-70); Platelet Count 136 K/mm3 (150-450); RBC Distribution Width CV 12.1 % (11.6-14.6); RBC Distribution Width SD 45.1 fl (35.1-43.9); White Blood Count 8.5 K/mm3 (4.4-11.0)
[2023-12-04] MEDS: Budesonide Respules 0.5 MG/2 ML AMPUL.NEB. INHALATION ×2 (07:11→21:39)
[2023-12-04] MEDS: Albuterol 2.5 MG/3 ML VIAL.NEB. INHALATION ×3 (07:11→21:39)
[2023-12-04 07:47] LABS: Anion Gap 4 (5-15); BUN 11 mg/dL (7-18); BUN/Creat Ratio 11.8 RATIO (10-20); Calcium,Total 8.7 mg/dL (8.5-10.1); Chloride 99 mmol/L (98-107); Creatinine, Serum 0.93 mg/dL (0.70-1.30); EST Glomerular Filtration Rate 82 mL/min (>60); Est Glom Filt Rate - Afr Amer 99 mL/min (>60); Estimated Creatinine Clearance 61.99 ml/min; Glucose 122 mg/dL (74-106); Potassium 3.7 mmol/L (3.5-5.1); Sodium Level 132 mmol/L (136-145)
[2023-12-04] MEDS: Isosorbide Mononitrate 30 MG Tablet PO (09:11)
[2023-12-04] MEDS: Sotalol Hydrochloride 80 MG Tablet 120 MG PO ×2 (09:11→21:23)
[2023-12-04] MEDS: Furosemide 40 MG Tablet PO (09:11)
[2023-12-04] MEDS: Pantoprazole Sodium 40 MG Tablet PO (09:11)
[2023-12-04] MEDS: buPROPion (SR) 100 MG TABLET.SA PO (09:11)
[2023-12-04] MEDS: Tamsulosin HCl 0.4 MG Capsule PO (09:11)
--- NOTE | 2023-12-04 11:23 | CON.PCM.NE_ITS ---
Assessment and Plan: Neuro Assessment/Plan Damon Swan is an 83-year-old gentleman with a past medical history of hypertension, hyperlipidemia sleep apnea, atrial fibrillation, prior stroke (2018 with no residual deficits), heart failure with preservations of ejection fraction whom teleneurology is evaluating for aphasia. Evaluated shows non fluent speech with ability for comprehension with inability to consistent repeat consistent with a broca's aphasia. If vascular or lesional etiology would localize to left MCA territory/left inferior frontal lobe. MRI brain without clear vascular or lesional insult. Other differential for acute onset aphasia would include seizure. Routine EEG was obtained, read is pending. Other differential would include [employer] infection/autoimmune encephalitis, patient does not appear confused or encephalopathic on examination. At this time seizure appears most likely. Discussed options with at bedside. Ideally we would do cEEG monitoring, which is not available at [place]. Another option would be to treat as seizure and see if he improves. certainly if routine EEG shows seizure or seizure focus then we would clearly have an answer. would prefer to treat and stay at [place]. Plan: 1. Given 1.5 grams of keppra once. Then continue 500mg BID 2. If routine EEG non-revealing, would repeat MRI brain with and without contrast 3. If does not improve with AED medication, would need transfer to [facility] I personally attended this patient and spent a total time of 63 minutes evaluating this patient including clinical assessment, review of chart, medical history imaging, and determining appropriate treatment and workup. HPI Consult Data Date of Consult: 12/04/23 HPI Narrative HPI Narrative: This is an 83-year-old gentleman with a past medical history of hypertension, hyperlipidemia sleep apnea, atrial fibrillation, prior stroke (2018 with no residual deficits), heart failure with preservations of ejection fraction whom teleneurology is evaluating for aphasia. HPI provided by in the room. She reports night 11/30 his speech/words were slightly slurred. Otherwise in normal state of health which she clarified was normal speech, no difficulty with understanding or producing words. He woke up on Friday 12/01 and got up to sit on a chair. When she got up and went to talk to him, she couldn?t understand anything he was saying and he was unable to understand her, leading to presentation to [facility]. On arrival to the ED, he was afebrile, BP was 1502-160s/ 60-90s, normal HR and RR. He underwent CT head which was nonacute and CTA brain and neck which showed bilateral carotid stenosis. He was evaluated by stroke on 12/03/2023. He underwent MRI brain, which did not show an acute infact, did show chronic white matter disease. [facility] Medical History Lower extremity edema BPH (benign prostatic hyperplasia) Fatigue Wears hearing aid Wears dentures Wears glasses Arthritis High cholesterol Gastric reflux COPD (chronic obstructive pulmonary disease) History of echocardiogram History of stress test Cardiology follow-up encounter History of atrial fibrillation Sleep apnea Anemia Former smoker Atrial fibrillation Coronary artery disease Hypertension Fatigue (HFpEF) heart failure with preserved ejection fraction Insomnia DDD (degenerative disc disease), lumbar Thrombocytopenia Actinic skin damage Esophageal reflux Macular degeneration (senile) of retina, unspecified Mixed hyperlipidemia TIA (transient ischemic attack) Syncope Cardiac arrest with ventricular fibrillation Essential (primary) hypertension HLD (hyperlipidemia) Paroxysmal A-fib CVA (cerebral vascular accident) (05/2018) Acute coronary thrombosis not resulting in myocardial infarction Home Medications ?Medication ?Instructions ?Recorded ?Last Taken ?Type fluticasone furoate 100 1 inh inhalation DAILY 12/24/21 12/01/23 History mcg-vilanterol 25 mcg/dose inhalation powder (Breo Ellipta) pantoprazole 40 mg tablet,delayed 40 mg PO DAILY #60 tabs 07/14/22 12/01/23 Rx release (Protonix) isosorbide mononitrate 30 mg 30 mg PO DAILY #90 tabs 02/23/23 12/01/23 Rx tablet,extended release 24 hr nitroglycerin 0.4 mg sublingual 0.4 mg sublingual Q5M PRN Chest 02/23/23 Unknown Rx tablet Pain #25 tabs sotalol 120 mg tablet 120 mg PO BID heart/blood pressure 02/23/23 12/01/23 Rx #180 tabs furosemide 40 mg tablet 40 mg PO DAILY #90 tabs 03/23/23 12/01/23 Rx albuterol sulfate 90 mcg/actuation 1 puff inhalation Q4H PRN 09/24/23 Unknown History aerosol inhaler shortness of breath or wheezing bupropion HCl 100 mg tablet,12 hr 100 mg PO DAILY 09/24/23 12/01/23 History sustained-release tamsulosin 0.4 mg capsule 0.4 mg PO DAILY prostate #30 caps 10/06/23 12/01/23 Rx apixaban 5 mg tablet (Eliquis) 5 mg PO BID #180 tabs 10/17/23 12/01/23 Rx atorvastatin 80 mg tablet 80 mg PO DAILY 12/02/23 12/01/23 History Allergy/AdvReac Type Severity Reaction Status Date / Time lisinopril Allergy Severe Cough Verified 10/06/23 13:25 oxycodone (From Percocet) Allergy Severe Hallucinati Verified 10/06/23 13:25 ons pravastatin Allergy Intermediate Myalgia Verified 10/06/23 13:25 Quinolones Allergy Unknown Unknown Verified 10/06/23 13:25 pregabalin (From Lyrica) AdvReac Severe depression Verified 10/06/23 13:25 Family History Mother No problems noted. Father Cancer Sister Cancer Surgical History History of cardiac catheterization Hx of hernia repair Hx of colonoscopy History of left heart catheterization (09/2016) History of incisional hernia repair History of coronary artery stent placement (08/06/12) H/O coronary artery bypass surgery (03/27/04) History of tonsillectomy History of cholecystectomy Social History Smoking Status: Former smoker pack-years: 37 Tobacco: How many years used: 25 how long ago did patient quit smokin quit status: has quit before alcohol intake: current alcohol intake frequency: 0-2 drinks per day Alcohol type: beer and hard liquor substance use type: does not use caffeine: Yes Type: coffee Number of servings: 2 what type of physical activity do you participate in: none seatbelt use: always do you feel safe at home: Yes Vital Signs Vital Signs Vital Signs: 12/03/23 12:44 12/03/23 13:36 12/03/23 19:37 Temperature 97.3 F L Temperature Source Temporal Pulse Rate 82 67 69 Pulse Strength Respiratory Rate 16 18 18 Respiratory Effort Respiratory Depth Respiratory Pattern Normal Blood Pressure 109/61 Blood Pressure Mean 77 Blood Pressure Source Monitor Blood Pressure Position Sitting Blood Pressure Location Right Arm Pulse Ox 97 Oxygen Delivery Method Room Air 12/03/23 19:37 12/03/23 21:00 12/03/23 21:07 Temperature 97.6 F L Temperature Source Temporal Pulse Rate 75 Pulse Strength Respiratory Rate 16 Respiratory Effort Normal Non-Labored Respiratory Depth Normal Respiratory Pattern Normal Blood Pressure 125/70 H Blood Pressure Mean 88 Blood Pressure Source Monitor Blood Pressure Position Semi-Fowlers Blood Pressure Location Left Arm Pulse Ox 93 95 Oxygen Delivery Method Room Air Room Air Room Air 12/04/23 03:13 12/04/23 03:13 12/04/23 07:11 Temperature 96.9 F L Temperature Source Temporal Pulse Rate 66 71 Pulse Strength Respiratory Rate 16 17 Respiratory Effort Normal Non-Labored Respiratory Depth Normal Respiratory Pattern Normal Normal Blood Pressure 141/60 H Blood Pressure Mean 87 Blood Pressure Source Monitor Blood Pressure Position Left Lateral Blood Pressure Location Right Arm Pulse Ox 97 Oxygen Delivery Method Room Air Room Air 12/04/23 07:11 12/04/23 07:40 12/04/23 07:41 Temperature Temperature Source Pulse Rate Pulse Strength Normal (2+) Respiratory Rate Respiratory Effort Normal Non-Labored Respiratory Depth Normal Respiratory Pattern Normal Blood Pressure Blood Pressure Mean Blood Pressure Source Blood Pressure Position Blood Pressure Location Pulse Ox 94 Oxygen Delivery Method Room Air Room Air 12/04/23 09:08 Temperature 97.3 F L Temperature Source Temporal Pulse Rate 74 Pulse Strength Respiratory Rate 18 Respiratory Effort Respiratory Depth Respiratory Pattern Blood Pressure 154/82 H Blood Pressure Mean 106 Blood Pressure Source Monitor Blood Pressure Position Sitting Blood Pressure Location Right Arm Pulse Ox 95 Oxygen Delivery Method Room Air Weight Weight: 86.364 kg Body Mass Index (BMI) 30.7 EEG Results Procedure Details EEG Procedure Details: DAMON SWAN is a 83 year old M with a past medical history of , who presents for evaluation of Electroencephalogram on DATE at TIME NIHSS NIHSS Nursing Documentation NIHSS Nursing Documentation: NIHSS: Ischemic Stroke/TIA Start: 12/02/23 13:59 Text: For ICU Patients: NIH sroke scale at Status: Complete presentation and every 2 hours or with change in RN caregiver Freq: [id number] Protocol: Activity Type Activity Date Activity User E-sign Co-sign Detail Recorded Client Recorded Date Recorded By Document 12/02/23 14:00 KES desktop 12/02/23 15:30 KES 12/02/23 14:00 NIH Stroke Scale [NIHSS] A score of 0 is normal or asymptomatic . Total possible score is 42. Inpatient: RN or Physician to activate a stroke alert for onset of new stroke symptoms or with NIHSS increase >/= 3 points. Following change in neurological status, NIHSS will be performed per physician order or more frequently PRN. -1a. Level of Consciousness Alert; keenly responsive -1b. LOC Questions Answers one question correctly. -1c. LOC Commands Performs both tasks correctly . -2. Best Gaze Normal -3. Visual No visual loss -4. Facial Palsy Normal symmetrical movements -5a. Left Arm No drift; arm holds 90 (or 45 ) degrees for full 10 seconds -5b. Right Arm No drift; arm holds 90 (or 45 ) degrees for full 10 seconds -6a. Left Leg No drift; leg holds 30-degree position for full 5 seconds -6b. Right Leg No drift; leg holds 30-degree position for full 5 seconds -7. Limb Ataxia Absent -8. Sensory Mild-to- moderate sensory loss; -9. Best Language Severe aphasia; -10. Dysarthria Normal -11. Extinction and Inattention No abnormality -Total 4 Query Text:A score of 0 is normal or asymptomatic. Total possible score is 42 . ED: Notify Physician for NIHSS increase by > / = 3 points. Inpatient: RN or Physician to activate a stroke alert for NIHSS increase of > / = 3 points. Coma Scale [Assess] -Eye Opening Spontaneous -Motor Obeys Commands -Verbal Oriented [Total] -Coma Scale Total 15 NIHSS: Ischemic Stroke/TIA Start: 12/02/23 13:59 Text: For PCU Patients: NIH and Neuro Check every 4 Status: Complete hours, PRN and with change in RN caregiver. Freq: [id number] Protocol: Activity Type Activity Date Activity User E-sign Co-sign Detail Recorded Client Recorded Date Recorded By Document 12/03/23 14:00 SHANA [id number] 12/03/23 15:56 ARN 12/03/23 14:00 NIH Stroke Scale [NIHSS] A score of 0 is normal or asymptomatic . Total possible score is 42. Inpatient: RN or Physician to activate a stroke alert for onset of new stroke symptoms or with NIHSS increase >/= 3 points. Following change in neurological status, NIHSS will be performed per physician order or more frequently PRN. -1a. Level of Consciousness Alert; keenly responsive -1b. LOC Questions Answers neither question correctly. -1c. LOC Commands Performs one task correctly. -2. Best Gaze Normal -3. Visual No visual loss -4. Facial Palsy Normal symmetrical movements -5a. Left Arm No drift; arm holds 90 (or 45 ) degrees for full 10 seconds -5b. Right Arm No drift; arm holds 90 (or 45 ) degrees for full 10 seconds -6a. Left Leg No drift; leg holds 30-degree position for full 5 seconds -6b. Right Leg No drift; leg holds 30-degree position for full 5 seconds -7. Limb Ataxia Absent -8. Sensory Normal; no sensory loss -9. Best Language Severe aphasia; -10. Dysarthria Mild-to- moderate dysarthria; -11. Extinction and Inattention No abnormality -Total 6 Query Text:A score of 0 is normal or asymptomatic. Total possible score is 42 . ED: Notify Physician for NIHSS increase by > / = 3 points. Inpatient: RN or Physician to activate a stroke alert for NIHSS increase of > / = 3 points. Coma Scale [Assess] -Eye Opening Spontaneous -Motor Obeys Commands -Verbal Confused [Total] -Coma Scale Total 14 Physical Exam Neuro Neuro Narrative: Mental Status: The patient was alert and sitting up in bed. He was oriented to person and month. Stated year as 2022 Language: speech is non-dysarthric but non-fluent. Repetition is difficult. Naming is intact. When asked to describe his childhood neighbor he is able to state ?[place], and [place]..[place]?. He struggles with performing simple commands such as ?show me two finger on the right (givens 2-4 fingers) Cranial Nerves: Pupils are equal and reactive to light.? EOMI, no nystagmus is appreciated, visual li full, face is symmetric at rest and with activation, hearing is intact to conversational tone, tongue protrudes midline. Facial sensation is intact to light touch, and equal bilaterally Motor: ?All extremities are antigravity. There may be slight drift of the right upper extremity, but this is not consistent. Muscle bulk appears normal. Sensation- Intact to light touch bilaterally Coordination: No dysmetria on [id number], finger follow finger or [id number]. No truncal ataxia Lab / Micro Data 12/04/23 05:35 12/04/23 05:35 Labs: Laboratory Results - last 24 hr 12/04/23 05:35: WBC 8.5, RBC 4.00 L, Hgb 14.4, Hct 40.0, MCV 100.0 H, MCH 36.0 H , MCHC 36.0, RDW Std Deviation 45.1 H, RDW Coeff of Randall 12.1, Plt Count 136 L, MPV 10.6, Immature Gran % (Auto) 0.200, Neut % (Auto) 66.2, Lymph % (Auto) 18.3 L, Liberty % (Auto) 12.9 H, Eos % (Auto) 2.2, Baso % (Auto) 0.2, Absolute Neuts (auto) 5.7, Absolute Lymphs (auto) 1.56, Nucleated RBC % 0, Sodium 132 L, Potassium 3.7, Chloride 99, Carbon Dioxide 29.0, Anion Gap 4 L, BUN 11, Creatinine 0.93, Estim Creat Clear Calc 61.99, Est GFR (MDRD) Af Amer 99, Est GFR (MDRD) Non-Af 82, BUN/Creatinine Ratio 11.8, Glucose 122 H, Calcium 8.7 Active Medications Active Medications Active Medications: Current Medications Generic Name Dose Route Start Last Admin Trade Name Freq PRN Reason Stop Dose Admin Acetaminophen 650 mg 12/02/23 21:31 Acetaminophen 325 Mg Tablet PO Q4H PRN PRN Pain 1-10 or Fever Albuterol Sulfate 2.5 mg 12/02/23 14:15 Albuterol 2.5 Mg/3 Ml Vial.Neb. INHALATION Q4H PRN shortness of breath or wheezing Albuterol Sulfate 2.5 mg 12/02/23 14:45 12/04/23 07:11 Albuterol 2.5 Mg/3 Ml Vial.Neb. INHALATION 2.5 mg Q6HWA.RT AMANDA Administration Apixaban 5 mg 12/02/23 22:00 12/02/23 21:35 Apixaban 5 Mg Tablet PO Not Given BID AMANDA Atorvastatin Calcium 80 mg 12/02/23 22:00 12/03/23 21:10 Atorvastatin Calcium 80 Mg Tablet PO 80 mg QHS AMANDA Administration Budesonide 0.5 mg 12/02/23 14:45 12/04/23 07:11 Budesonide Respules 0.5 Mg/2 Ml Ampul.Neb. INHALATION 0.5 mg Q12H.RT AMANDA Administration Bupropion HCl 100 mg 12/03/23 10:00 12/04/23 09:11 Bupropion (Sr) 100 Mg Tablet.Sa PO 100 mg DAILY AMANDA Administration Furosemide 40 mg 12/03/23 10:00 12/04/23 09:11 Furosemide 40 Mg Tablet PO 40 mg DAILY AMANDA Administration Protocol Isosorbide Mononitrate 30 mg 12/03/23 10:00 12/04/23 09:11 Isosorbide Mononitrate 30 Mg Tablet PO 30 mg DAILY AMANDA Administration Protocol Nitroglycerin 0.4 mg 12/02/23 14:17 Nitroglycerin (Inpatient Use) 0.4 Mg Tab.Subl SL Q5M PRN CARDIAC/CHEST PAIN Nutritional Formula (Lactose Free) 120 ml 12/02/23 17:00 12/04/23 07:44 Ensure Plus High Protein 120 Ml Liquid PO Not Given [facility]CM [facility] Ondansetron HCl 4 mg 12/02/23 13:59 12/02/23 22:59 Ondansetron 4 Mg/2 Ml Vial IV 4 mg Q8H PRN PRN Administration NAUSEA/VOMITING Pantoprazole Sodium 40 mg 12/03/23 10:00 12/04/23 09:11 Pantoprazole Sodium 40 Mg Tablet PO 40 mg DAILY AMANDA Administration Sotalol HCl 120 mg 12/02/23 22:00 12/04/23 09:11 Sotalol Hydrochloride 80 Mg Tablet PO 120 mg BID AMANDA Administration Tamsulosin HCl 0.4 mg 12/03/23 10:00 12/04/23 09:11 Tamsulosin Hcl 0.4 Mg Capsule PO 0.4 mg DAILY AMANDA Administration
--- NOTE | 2023-12-04 11:49 | PCM.PROGNOTE ---
Subjective Subjective Patient seen and examined. He still has expressive aphasia. Unable to do review of systems as he is confused, and still has expressive aphasia. Objective Data Objective Data Vital Signs: Vital Signs Temp Pulse Resp BP Pulse Ox O2 Del Method 97.3 F L 74 18 154/82 H 95 Room Air 12/04/23 09:08 12/04/23 09:08 12/04/23 09:08 12/04/23 09:08 12/04/23 09:08 12/04/23 09:08 Oxygen Delivery Method Room Air Weight: 190 lb 6.4 oz Body Mass Index (BMI) 30.7 Intake & Output: Intake and Output for Last 24 Hours 12/02/23 12/03/23 12/04/23 23:59 23:59 23:59 Intake Total 100 / 100 Output Total 1300 / 1300 350 / 350 Balance -1200 / -1200 -350 / -350 Lab / Micro Data 12/04/23 05:35 12/04/23 05:35 Labs: Laboratory Results - last 24 hr 12/04/23 05:35: WBC 8.5, RBC 4.00 L, Hgb 14.4, Hct 40.0, MCV 100.0 H, MCH 36.0 H, MCHC 36.0, RDW Std Deviation 45.1 H, RDW Coeff of Randall 12.1, Plt Count 136 L, MPV 10.6, Immature Gran % (Auto) 0.200, Neut % (Auto) 66.2, Lymph % (Auto) 18.3 L, Jay % (Auto) 12.9 H, Eos % (Auto) 2.2, Baso % (Auto) 0.2, Absolute Neuts (auto) 5.7, Absolute Lymphs (auto) 1.56, Nucleated RBC % 0, Sodium 132 L, Potassium 3.7, Chloride 99, Carbon Dioxide 29.0, Anion Gap 4 L, BUN 11, Creatinine 0.93, Estim Creat Clear Calc 61.99, Est GFR (MDRD) Af Amer 99, Est GFR (MDRD) Non-Af 82, BUN/Creatinine Ratio 11.8, Glucose 122 H, Calcium 8.7 Physical Exam Const alert Constitutional Narrative: flat affect, confused, expressive aphasia Orientation / Consciousness: confused HEENT normocephalic, head/scalp atraumatic, moist oral mucous membranes and oropharynx normal Eyes PERRL and EOMs intact bilaterally Neck no lymphadenopathy and supple Lymph Lymphatic: no lymphadenopathy noted and no lymphedema noted Resp normal respiratory effort, normal air movement and clear to auscultation bilaterally Cardio regular rate, regular rhythm, S1 normal heart sound, S2 normal heart sound and no murmurs GI normal to inspection, nondistended, normoactive bowel sounds, soft to palpation, non-tender and non-distended Extremity normal capillary refill, no clubbing, cyanosis or edema and no calf tenderness Skin Skin Narrative: posterior scalp hematoma General Skin Exam: no breakdown Neuro no focal motor deficits, no sensory deficits noted and deep tendon reflexes 2+ bilaterally Neuro Narrative: still has some expressive aphasia, no numbness or tingling, confused Motor Exam: general weakness Psych Psych Narrative: lethargic Assessment & Plan Assessment/Plan (1) Expressive aphasia: PLAN: #Expressive aphasia to rule out a stroke initial CT of the brain shows no acute intracranial pathology. His last known well was 6 PM on the night before admission and found him with expressive aphasia. Was not a candidate for TNK CTA head and neck showed plaque formation at the origin of the right internal carotid artery causing less than 50% stenosis and stenosis at the origin of the left internal carotid artery causing between 50 to 69% stenosis and calcified plaque seen in the petrous portion of the left internal carotid artery. He did have a carotid ultrasound from January 2023 which showed irregular calcific plaque at the proximal right internal carotid artery with less than 50% stenosis and greater than 50% stenosis of the right external carotid artery with minimal plaque at the proximal left internal carotid artery with less than 50% stenosis and less than 50% stenosis of the left external carotid artery. It does appear that the stenosis in the left internal carotid artery has worsened. 2D echo showed EF of 60% and no evidence of diastolic dysfunction as well as trivial mitral valve insufficiency MRI of the brain showed no evidence of a stroke, no intracranial mass, hemorrhage or acute territorial effect and showed sequelae of old basal ganglia lacunar infarcts. PT.OT On board. on aspirin and high intensity statin neurology consulted. neurology thinks it may be a seizure; EEG done. Per neurology, patient was offered transfer to [facility] for continuous EEG monitoring but patient's refused. Per neurology, to give Keppra 1.5gram x 1, then to continue with 500mg bid IV of keppra for now, pending EEG results. per neurology, to order repeat MRI brain with and without certificate. #Carotid stenosis CT as above. On aspirin and high intensity statin. Vascular surgery consulted. Await recs. #Posterior scalp hematoma due to mechanical fall Patient fell yesterday in the evening of the day of admission. CT of the brain was repeated and showed a posterior scalp hematoma. Eliquis therefore held. PT OT on board. Fall precautions. #History of A-fib: On Eliquis and sotalol. Eliquis on hold due to mechanical fall and resultant posterior scalp hematoma. #CAD s/p CABG: On aspirin and Plavix as well as high intensity statin #BPH: On Flomax #Depression: On bupropion #Benign essential hypertension:on sotalol for afib. BP elevated. Will start on PO amlodipine 5mg daily. IV hydralazine prn. DVT prophylaxis: SCDs. Eliquis on hold due to posterior scalp hematoma. Code status: full code Charges/Coding Visit Charges Inpatient E&M: 16165 Subs Hosp L3
[2023-12-04] MEDS: levETIRAcetam IV 1,500 MG in 0.9% Normal Saline (100mL Bag) 100 ML 460 MG IV (13:05)
[2023-12-04] MEDS: amLODIPine 5 MG Tablet PO (13:05)
[2023-12-04] MEDS: Atorvastatin Calcium 80 MG Tablet PO (21:23)
[2023-12-04] MEDS: levETIRAcetam IV 500 MG in 0.9% Normal Saline (100mL Bag) 100 ML 400 MG IV (21:24)
[2023-12-05 03:18] VITALS: BP 109/65; PULSE 84; RESP 18; TEMP 36.5; O2SAT 97
[2023-12-05 05:57] LABS: Absolute Lymphocyte Count 1.44 X10^3/uL (0.83-4.51); Absolute Neutrophil Count 5.5 X10^3/uL (2.0-7.7); Basophil# 0.03 X10^3/uL; Basophil% 0.4 % (0-1); Eosinophil# 0.21 X10^3/uL; Eosinophils% 2.6 % (0-5); Hematocrit 41.3 % (40-54); Hemoglobin 14.4 g/dL (13.0-16.5); Lymphocyte # 1.44 X10^3/ul (0.83-4.51); Lymphocyte % 17.6 % (19-41); Mean Corp Hgb Conc 34.9 g/dL (32-36); Mean Corpuscular Hgb 35.2 pg (27.0-32.0); Mean Platelet Vol. 10.6 fl (6.2-12.0); Monocyte# 0.99 X10^3/uL; Monocyte% 12.1 % (0-10); NRBC Flagged by Analyzer 0 % (0-5); Neutrophil # 5.46 X10^3/uL (2.7-7.7); Neutrophil % 66.8 % (47-70); Platelet Count 153 K/mm3 (150-450); RBC Distribution Width CV 12.2 % (11.6-14.6); RBC Distribution Width SD 45.2 fl (35.1-43.9); Red Blood Count 4.09 M/mm3 (4.6-6.2); White Blood Count 8.2 K/mm3 (4.4-11.0)
[2023-12-05 06:41] LABS: Anion Gap 7 (5-15); BUN 11 mg/dL (7-18); BUN/Creat Ratio 13.2 RATIO (10-20); Calcium,Total 8.7 mg/dL (8.5-10.1); Chloride 99 mmol/L (98-107); Creatinine, Serum 0.83 mg/dL (0.70-1.30); EST Glomerular Filtration Rate 94 mL/min (>60); Est Glom Filt Rate - Afr Amer 113 mL/min (>60); Estimated Creatinine Clearance 69.46 ml/min; Glucose 117 mg/dL (74-106); Potassium 3.6 mmol/L (3.5-5.1); Sodium Level 134 mmol/L (136-145)
[2023-12-05 06:44] VITALS: PULSE 85; RESP 18; O2SAT 92
[2023-12-05] MEDS: Budesonide Respules 0.5 MG/2 ML AMPUL.NEB. INHALATION (06:44)
[2023-12-05] MEDS: Albuterol 2.5 MG/3 ML VIAL.NEB. INHALATION (06:44)
--- NOTE | 2023-12-05 07:54 | EKG12_ITS ---
Test Reason : Blood Pressure : / mmHG Vent. Rate : 085 BPM Atrial Rate : 085 BPM P-R Int : 240 ms QRS Dur : 086 ms QT Int : 418 ms P-R-T Axes : 054 026 058 degrees QTc Int : 497 ms Sinus rhythm with marked sinus arrhythmia with 1st degree A-V block Prolonged QT Abnormal ECG When compared with ECG of 02-DEC-2023 11:01, MANUAL COMPARISON REQUIRED, DATA IS UNCONFIRMED Confirmed by Rufus Harry ([id number]), script editor FUNMI AMES [id number]) on 12/06/2023 8:16:43 AM Referred By: Confirmed By:Rufus Harry
[2023-12-05 08:45] VITALS: BP 114/68; PULSE 94; RESP 14; TEMP 36.6; O2SAT 94
--- NOTE | 2023-12-05 09:00 | MRI_ITS ---
STUDY: MRI BRAIN WITH AND WITHOUT CONTRAST REASON FOR EXAM: Male, 83 years old. expressive aphasia TECHNIQUE: Standardized multiplanar fat and water weighted pulse sequences were obtained. IV 18ml clariscan was administered for the contrast portion of the examination. COMPARISON: Head CT dated December 02, 2023. MRI of the brain dated December 02, 2023 FINDINGS: Subcutaneous/scalp hematoma overlying the midline to right side and posterior apex of the skull/parietal bone is approximately half the size it was on the head CT dated December 02, 2023. There is no evidence of acute intracranial hemorrhage or extra-axial fluid collection or midline shift. No hydrocephalus is present. 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 There is moderate cerebral atrophy with widening of the extra-axial spaces and ventricular dilatation. There are multiple white matter hyperintensities, distributed throughout the deep white matter tracts of the cerebral hemispheres, consistent with moderate chronic white matter ischemic changes. There is no evidence for recent intracranial ischemia or other cause of cytotoxic edema on diffusion weighted imaging (DWI). Normal T2* images of the brain without demonstrated susceptibility artifact. There is no demonstrated hemosiderin stain. There is no extra-axial fluid accumulation. Normal flow voids within the major intracranial circulation suggesting patency by spin echo criteria. Normal venous enhancement. There is no enhancing intra-axial or extra-axial abnormality. Normal sella turcica, pituitary gland, infundibular stalk, optic chiasm and hypothalamus. Normal tectal plate and pineal gland. Normal midbrain, jose m and medulla. Normal cerebellum. Normal basal cisterns. Normal bilateral temporal bones. Normal bilateral internal auditory canals. No demonstrated orbital abnormality, within the constraints of a routine brain study. Normal visualized paranasal sinuses. Normal calvarium and skull base. Normal visualized soft tissue structures. Normal visualized upper cervical spine. MRI/Brain W/WO Contrast IMPRESSION: 1. Subcutaneous/scalp hematoma overlying the midline to right side and posterior apex of the skull/parietal bone is approximately half the size it was on the head CT dated December 02, 2023. 2. There is no evidence of acute intracranial hemorrhage or extra-axial fluid collection or midline shift. No hydrocephalus is present. 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 3. No acute infarct. Electronically Signed: Matthias Carr MD at 10:12 EDT ,
[2023-12-05] MEDS: Ensure Plus High Protein 120 ML LIQUID PO (10:12)
[2023-12-05] MEDS: Furosemide 40 MG Tablet PO (10:13)
[2023-12-05] MEDS: Isosorbide Mononitrate 30 MG Tablet PO (10:13)
[2023-12-05] MEDS: buPROPion (SR) 100 MG TABLET.SA PO (10:13)
[2023-12-05] MEDS: Pantoprazole Sodium 40 MG Tablet PO (10:13)
[2023-12-05] MEDS: Sotalol Hydrochloride 80 MG Tablet 120 MG PO (10:13)
[2023-12-05] MEDS: Tamsulosin HCl 0.4 MG Capsule PO (10:13)
[2023-12-05] MEDS: amLODIPine 5 MG Tablet PO (10:14)
[2023-12-05] MEDS: levETIRAcetam IV 500 MG in 0.9% Normal Saline (100mL Bag) 100 ML 400 MG IV (10:43)
--- NOTE | 2023-12-05 11:00 | CASEMGMT ---
RN KELSEY Face to Face with patient for initial transition planning/care coordination assessment. RN CM introduced self and role at [facility]. Patient sitting in chair, alert and slightly confused, at bedside. Patient and willing to participate in assessment and is able to answer all questions appropriately. Care providers, pharmacy, and demographics verified. PCP: Aiden Specialists: none Preferred Pharmacy: [facility] Insurance: [facility], [facility] supplement Prescription Benefit: none Living Will/HPOA: yes, Marilee BAKER: , daughter Living Arrangements: Patient lives with in a single story home with 5 steps and railing to enter. Patient is independent at home. Transportation: DME/HHC: Patient has raised toilet, cane, walker, and grab bars. No previous HHC or SNF. Patient and would like outpatient therapy script to take to center of their choice. Patient wishes to discharge home, with outpatient therapy. Patient and state they have no further needs or concerns at this time. CM to follow for discharge planning needs that may arise. Disposition Plan: Patient to discharge home with outpatient therapy, family support, and follow-up plans in place. Nicole LABOY, RN, CM
[2023-12-05 15:30] VITALS: BMI 30.7
--- NOTE | 2023-12-05 15:48 | CASEMGMT ---
NIVIA COLE NOTE: NIVIA COLE spoke w/Nelly, ST, re: ST and MBS. She states she spoke w/pt and and plan is for pt to have MBS as an OP and she will work on getting an order for MBS from Dr Wolfe to have it done @ [facility]. made aware, if she chooses to have MBS done elsewhere, to f/u with Dr Wolfe to have order sent to location of her choice. Script for OP PT/OT and ST signed by Dr Cross. NIVIA COLE to room. given the script and made aware she can take to any location of choice. states she is pretty sure she will be able to manage getting pt in/out of a vehicle for the OP appts, but she is not sure how this will go. She was made aware, if it is too difficult for them and if she changes her mind and wants HHC instead of OP for PT/OT and ST, to f/u with Dr Wolfe re: same. She voices understanding. denies having other discharge planning needs/concners. Ja LABOY RN, CM
[2023-12-05 15:56] VITALS: BP 125/76; PULSE 66; RESP 16; TEMP 36.6; O2SAT 96
--- NOTE | 2023-12-05 16:13 | DCINST_ITS ---
Discharge Instructions Diet Discharge Diet: Low fat / Low cholesterol Activity Discharge Activity: Return to Normal Activity Dressing / Incision Call your doctor if you observe: Fever of 101 or Higher, Shortness of breath, Dizziness, Fainting spells, Swelling in the ankles, Chest pain and Increased palpitations (irregular heartbeat) Follow Up Care Test Results: Test results from this visit will be discussed in further detail at your follow- up appointment, if applicable. Discharge Plan Admission Admit Date/Time: 12/03/23 16:00 Attending Provider: Jose Ramon Cross Primary Care Provider: Jose Wolfe Consulting Providers: Jim Iglesias; Michael Hartmann; Sherie Zimmerman; Madalyn Acuña; Radha Davis; Palma Ye; Chinmay Vicente; Vicky Suárez; Axel Arteaga; Loco Schneider; Carol Coffey; Piyush Viera; Kassandra Brock; Alessio Plasencia; Renetta Lee; Wade Shields; Shantell Couch; Ashok Rey; Mayelin London; Yvonne Chamberlain; Conchita Portillo; Rashi Sorenson; Maximiliano Watters; ANTWAN KAY; Mateo Cordova; Candy Mccullough; Hina Quarles Discharge Orders/Prescriptions Prescriptions: New amlodipine 5 mg Tablet 5 mg PO DAILY 30 Days Qty: 30 0RF levetiracetam [Keppra] 500 mg tablet 500 mg PO BID Qty: 60 0RF Continued fluticasone furoate-vilanterol [Breo Ellipta] 100-25 mcg/dose blister with device 1 inh inhalation DAILY tamsulosin 0.4 mg capsule 0.4 mg PO DAILY Qty: 30 5RF pantoprazole [Protonix] 40 mg tablet,delayed release (DR/EC) 40 mg PO DAILY Qty: 60 1RF albuterol sulfate 90 mcg/actuation HFA aerosol inhaler 1 puff inhalation Q4H PRN (Reason: shortness of breath or wheezing) bupropion HCl 100 mg tablet sustained-release 12 hr 100 mg PO DAILY atorvastatin 80 mg tablet 80 mg PO DAILY isosorbide mononitrate 30 mg tablet extended release 24 hr 30 mg PO DAILY Qty: 90 4RF nitroglycerin 0.4 mg tablet, sublingual 0.4 mg SUBLINGUAL Q5M PRN (Reason: Chest Pain) Qty: 25 4RF Rx Instructions: Place one tab under tongue every 5 minutes x 3 doses as needed sotalol 120 mg tablet 120 mg PO BID Qty: 180 3RF furosemide 40 mg tablet 40 mg PO DAILY Qty: 90 3RF Eliquis 5 mg tablet 5 mg PO BID Qty: 180 4RF Referrals / Follow Up: Jose Wolfe MD [Primary Care Provider] - Within 1 Week (refer to Neurology as an outpatient) Disposition Disposition (needs filled in before D/C Order can be placed): Home, Self Care
--- NOTE | 2023-12-05 16:25 | NEURO.PNOTE ---
Assessment and Plan: Neuro Assessment/Plan RO SWAN is a 83 M, seen as a follow up by Teleneurology for expressive aphasia. Started on Keppra 500 mg BID,As per , symptoms are better but not back to baseline. On my exam, continue to have expressive aphasia. Repeat MRI Brain with no acute findings. Routine EEG negative for seizure. Recommended transfer to [facility] for cEEG but family refused twice. Recommend repeating routine EEG and continue with keppra at same dose. Diagnosis: Epxressive Aphasia Transfer to [facility] for the following reasons: recommended but patient refused. I personally attended this patient and spent a total time of 30 minutes evaluating this patient including clinical assessment, review of chart, medical history imaging, and determining appropriate treatment and workup. Kassandra Brock MD [facility] Neurology department Subject: Neurology Subjective RO SWAN is a 83 year old M, who we are seeing in consultation today for advice on the management of aphasia and related patient care. NIHSS NIHSS Nursing Documentation NIHSS Nursing Documentation: NIHSS: Ischemic Stroke/TIA Start: 12/02/23 13:59 Text: For ICU Patients: NIH sroke scale at Status: Complete presentation and every 2 hours or with change in RN caregiver Freq: [id number] Protocol: Activity Type Activity Date Activity User E-sign Co-sign Detail Recorded Client Recorded Date Recorded By Document 12/02/23 14:00 KES desktop 12/02/23 15:30 KES 12/02/23 14:00 NIH Stroke Scale [NIHSS] A score of 0 is normal or asymptomatic . Total possible score is 42. Inpatient: RN or Physician to activate a stroke alert for onset of new stroke symptoms or with NIHSS increase >/= 3 points. Following change in neurological status, NIHSS will be performed per physician order or more frequently PRN. -1a. Level of Consciousness Alert; keenly responsive -1b. LOC Questions Answers one question correctly. -1c. LOC Commands Performs both tasks correctly . -2. Best Gaze Normal -3. Visual No visual loss -4. Facial Palsy Normal symmetrical movements -5a. Left Arm No drift; arm holds 90 (or 45 ) degrees for full 10 seconds -5b. Right Arm No drift; arm holds 90 (or 45 ) degrees for full 10 seconds -6a. Left Leg No drift; leg holds 30-degree position for full 5 seconds -6b. Right Leg No drift; leg holds 30-degree position for full 5 seconds -7. Limb Ataxia Absent -8. Sensory Mild-to- moderate sensory loss; -9. Best Language Severe aphasia; -10. Dysarthria Normal -11. Extinction and Inattention No abnormality -Total 4 Query Text:A score of 0 is normal or asymptomatic. Total possible score is 42 . ED: Notify Physician for NIHSS increase by > / = 3 points. Inpatient: RN or Physician to activate a stroke alert for NIHSS increase of > / = 3 points. Coma Scale [Assess] -Eye Opening Spontaneous -Motor Obeys Commands -Verbal Oriented [Total] -Coma Scale Total 15 NIHSS: Ischemic Stroke/TIA Start: 12/02/23 13:59 Text: For PCU Patients: NIH and Neuro Check every 4 Status: Complete hours, PRN and with change in RN caregiver. Freq: [id number] Protocol: Activity Type Activity Date Activity User E-sign Co-sign Detail Recorded Client Recorded Date Recorded By Document 12/03/23 14:00 [facility] [id number] 12/03/23 15:56 [facility] 12/03/23 14:00 NIH Stroke Scale [NIHSS] A score of 0 is normal or asymptomatic . Total possible score is 42. Inpatient: RN or Physician to activate a stroke alert for onset of new stroke symptoms or with NIHSS increase >/= 3 points. Following change in neurological status, NIHSS will be performed per physician order or more frequently PRN. -1a. Level of Consciousness Alert; keenly responsive -1b. LOC Questions Answers neither question correctly. -1c. LOC Commands Performs one task correctly. -2. Best Gaze Normal -3. Visual No visual loss -4. Facial Palsy Normal symmetrical movements -5a. Left Arm No drift; arm holds 90 (or 45 ) degrees for full 10 seconds -5b. Right Arm No drift; arm holds 90 (or 45 ) degrees for full 10 seconds -6a. Left Leg No drift; leg holds 30-degree position for full 5 seconds -6b. Right Leg No drift; leg holds 30-degree position for full 5 seconds -7. Limb Ataxia Absent -8. Sensory Normal; no sensory loss -9. Best Language Severe aphasia; -10. Dysarthria Mild-to- moderate dysarthria; -11. Extinction and Inattention No abnormality -Total 6 Query Text:A score of 0 is normal or asymptomatic. Total possible score is 42 . ED: Notify Physician for NIHSS increase by > / = 3 points. Inpatient: RN or Physician to activate a stroke alert for NIHSS increase of > / = 3 points. Coma Scale [Assess] -Eye Opening Spontaneous -Motor Obeys Commands -Verbal Confused [Total] -Coma Scale Total 14 EEG Results Procedure Details EEG Procedure Details: RO SWAN is a 83 year old M with a past medical history of , who presents for evaluation of Electroencephalogram on DATE at TIME Objective Data Objective Data Vital Signs: Vital Signs Temp Pulse Resp BP Pulse Ox O2 Del Method 97.8 F 66 16 125/76 H 96 Room Air 12/05/23 15:56 12/05/23 15:56 12/05/23 15:56 12/05/23 15:56 12/05/23 15:56 12/05/23 15:56 Oxygen Delivery Method Room Air Weight: 86.364 kg Body Mass Index (BMI) 30.7 Intake & Output: Intake and Output for Last 24 Hours 12/03/23 12/04/23 12/05/23 23:59 23:59 23:59 Intake Total 100 / 100 780 / 780 525 / 525 Output Total 1300 / 1300 900 / 900 225 / 225 Balance -1200 / -1200 -120 / -120 300 / 300 Lab / Micro Data 12/05/23 05:05 12/05/23 05:05 Labs: Laboratory Results - last 24 hr 12/05/23 05:05: WBC 8.2, RBC 4.09 L, Hgb 14.4, Hct 41.3, MCV 101.0 H, MCH 35.2 H, MCHC 34.9, RDW Std Deviation 45.2 H, RDW Coeff of Randall 12.2, Plt Count 153, MPV 10.6, Immature Gran % (Auto) 0.500, Neut % (Auto) 66.8, Lymph % (Auto) 17.6 L, Erie % (Auto) 12.1 H, Eos % (Auto) 2.6, Baso % (Auto) 0.4, Absolute Neuts (auto) 5.5, Absolute Lymphs (auto) 1.44, Nucleated RBC % 0, Sodium 134 L, Potassium 3.6, Chloride 99, Carbon Dioxide 28.0, Anion Gap 7, BUN 11, Creatinine 0.83, Estim Creat Clear Calc 69.46, Est GFR (MDRD) Af Amer 113, Est GFR (MDRD) Non-Af 94, BUN/Creatinine Ratio 13.2, Glucose 117 H, Calcium 8.7 Radiography Diagnostic Testing: Radiology Impression Carotid Duplex 12/02/23 14:03 Interpretation Summary Minimal irregular plaque at the proximal right internal carotid artery with less than 50% stenosis Less than 50% stenosis right external carotid artery Smooth plaque at the proximal left internal carotid artery with less than 50% stenosis Less than 50% stenosis left external carotid artery Patent and antegrade vertebral arteries bilaterally No advancement of disease of the previous study of February 14, 2023 Ordering Physician: Hina Quarles Referring Physician: Jose Wolfe Performed By: Geraldo Jason, T Brain MRI 12/05/23 09:00 IMPRESSION: 1. Subcutaneous/scalp hematoma overlying the midline to right side and posterior apex of the skull/parietal bone is approximately half the size it was on the head CT dated December 02, 2023. 2. There is no evidence of acute intracranial hemorrhage or extra-axial fluid collection or midline shift. No hydrocephalus is present. 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 3. No acute infarct. Electronically Signed: Matthias Carr MD at 10:12 EDT Reading Location ID and State: [facility] / [place] , Service support , Physical Exam Neuro Neuro Narrative: -? General: Laying comfortably in bed; in no acute distress. -? HENT: Normal oropharynx and mucosa. Normal external appearance of ears and nose. Exophthalmos. -? Neck: Supple, no pain or tenderness -? CV:? No peripheral edema. -? Pulmonary:? Normal respiratory effort. -? Ext: No cyanosis, edema, or deformity -? Skin: No rash. Normal palpation of skin.? -? Musculoskeletal: full range of motion; no joint tenderness. Normal digits and nails by inspection. No clubbing. -? NEURO: -? Mental Status: The patient was alert with expressive aphasia. -? Language: speech is non fluent.? Naming, repetition, fluency,impaired, comprehension intact. -? Cranial Nerves: PERRL 3 mm/brisk. EOMI, visual li full, no facial asymmetry, facial sensation intact, hearing intact, tongue midline, no evidence of atrophy or fibrillations. As performed by the nurse. Sternocleidomastoid and trapezius were equally strong. Soft palate raises equally, no uvular deviations -? Motor: normal bulk, tone, and strength throughout. No pronator drift or satelliting. Upper and lower extremities equal bilaterally. 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 Detailed reflex exam as performed by the nurse/IBIS and witnessed by the physician: R L Biceps Patellar Ankle Babinski -? Tone: is normal and bulk is normal -? Sensation- Intact to light touch bilaterally -? Coordination: No dysmetria on [id number], finger follow finger or [id number]. -? Gait- Gait initiation was normal. Narrow base with good heel strike and stride length was observed during ambulation. Turns were in stride. Patient was able to walk normally in tandem. Romberg was normal.
--- NOTE | 2023-12-05 16:43 | PCM.DC.SUM ---
Providers Date of Admission: 12/03/23 Primary Care Physician: Dr. Jose Wolfe MD Consultations 12/02/23 13:59 Consult: Tele-Neurology Routine Consulting Provider: [facility] Reason for Consult: Acute Ischemic Stroke/TIA EMERGENT Consult: No Notified: Yes Date Notified: 12/02/23 Time Notified: 15:34 Method of Notification: Answering Service Nursing Unit Staff Notify [facility] of Tele-Neurology Consult: Yes 12/02/23 14:03 Consult: Vascular Surgery Routine Consulting Provider: Jim Iglesias Reason for Consult: carotid stenosis EMERGENT Consult: No Notified: Yes Date Notified: 12/02/23 Time Notified: 14:03 Method of Notification: Text Reason For Visit: EXPRESSIVE APHASIA Diagnosis Discharge Diagnosis (1) Expressive aphasia: Status: Acute Code(s): R47.01 - Aphasia Medications at Discharge Home Medications fluticasone furoate 100 mcg-vilanterol 25 mcg/dose inhalation powder (Breo Ellipta) 1 inh inhalation DAILY 12/24/21 pantoprazole 40 mg tablet,delayed release (Protonix) 40 mg PO DAILY #60 tabs 07/14/22 isosorbide mononitrate 30 mg tablet,extended release 24 hr 30 mg PO DAILY #90 tabs 02/23/23 nitroglycerin 0.4 mg sublingual tablet 0.4 mg sublingual Q5M PRN Chest Pain #25 tabs 02/23/23 sotalol 120 mg tablet 120 mg PO BID heart/blood pressure #180 tabs 02/23/23 furosemide 40 mg tablet 40 mg PO DAILY #90 tabs 03/23/23 albuterol sulfate 90 mcg/actuation aerosol inhaler 1 puff inhalation Q4H PRN shortness of breath or wheezing 09/24/23 bupropion HCl 100 mg tablet,12 hr sustained-release 100 mg PO DAILY 09/24/23 tamsulosin 0.4 mg capsule 0.4 mg PO DAILY prostate #30 caps 10/06/23 apixaban 5 mg tablet (Eliquis) 5 mg PO BID #180 tabs 10/17/23 atorvastatin 80 mg tablet 80 mg PO DAILY 12/02/23 amlodipine 5 mg tablet 5 mg PO DAILY 30 days #30 tabs 12/05/23 levetiracetam 500 mg tablet (Keppra) 500 mg PO BID #60 tabs 12/05/23 Hospital Course Operations None Procedures 2-D Echocardiogram and Electroencephalogram Summary of Care Provided Minutes Spent on Discharge: 37 Hospital Course: Per HPI: RO SWAN, is a 83 M with a PMH as outlined who presents via the ED on 12/02/2023 with a complaint of expressive aphasia. says his last known well was 6pm on the night before admission. went to say hello to him this morning and noted he had garbled speech. She could not understand anything he was saying. She did not notice that he had any focal weakness or bowel trip. She called the EMS and he was worried to the hospital. Denied any fever or chills, palpitations, dizziness, nausea or vomiting or any other symptoms. Review of systems otherwise negative. Vitals in the ED were blood pressure 140/74, pulse rate of 62 and respirate rate of 18. He was saturating at 97% on room air. CBC showed hemoglobin of 15.9 with WBC of 7.8 and platelets of 154. INR was 1.3. Chemistry shows sodium of 135 with bicarb of 29 and potassium of 4.2. Creatinine was 1.02. Initial troponin was 4. Chest x-ray showed hyperinflation with clear lungs. CTA of the head and neck showed plaque formation at the origin of the right internal carotid artery causing less than 50% stenosis and stenosis at the origin of the left internal carotid artery causing between 50 to 69% stenosis and calcified plaque seen in the petrous portion of the left internal carotid artery. CT of the brain showed chronic involutional changes. He has been admitted to rule out a stroke. Hospital Course: 1. Expressive aphasia?83-year-old male presents to the hospital with expressive aphasia. Neurology was consulted felt that this could possibly be a Broca's aphasia however 2 CT scans of the brain as well as 2 MRIs were negative for stroke. It was discussed with the family about being transferred to [facility] to perform a 24-hour EEG monitoring however family refused this twice. He was started on Keppra and according to the he has had significant improvement and is much better than he was when he came into the hospital. I discussed with the family about the possibility for discharge today versus staying another day to repeat an EEG however they elected to go home. She felt that he was doing much better and that they could follow-up with neurology as an outpatient. He did have a carotid Doppler done to evaluate for possible carotid stenosis based on the CTA of the head and neck both of which were read as less than 50% on the Doppler send no further follow-up or workup. Echocardiogram was also obtained which demonstrated an EF of 60% with no evidence of diastolic dysfunction. EEG obtained today was negative for any seizure-like activity and was fairly unremarkable. Will plan to discharge today on Keppra 500 mg p.o. twice daily and as his hematoma is improving he can restart his Eliquis tomorrow morning. 2. Atrial fibrillation, coronary artery disease status post CABG, BPH, depression, essential hypertension, hyperlipidemia are all chronic medical conditions which complicate his care. His home medications were continued where appropriate Physical Exam Narrative General: Alert, Oriented x2, Cooperative, No apparent distress HEENT: Atraumatic, PERRLA, EOMI, Normocephalic, posterior scalp hematoma stable Oral: Moist Mucosa Neck: Supple, No JVD Lungs: Diminished, Normal air movement, No rhonchi, No wheeze, No rales Cardiovascular: Regular rate, Regular Rhythm, Normal S1, Normal S2, No murmurs Abdomen: Soft, Non Tender, Non-Distended, No Hepato-splenomegaly Extremities: No edema, Capillary Refill Less than 3 Seconds Skin: No rashes, No breakdown Musculoskeletal: No Tenderness to Palpation of Joints or Extremities Neurological: Mentation is slow but responses are appropriate. Strength is intact as is sensation Psych/Mental Status: Normal Affect, Appropriate Weight / BMI Weight Weight: 190 lb 6.4 oz Body Mass Index (BMI) 30.7 ABG / Lab / Microbiology Data 12/05/23 05:05 12/05/23 05:05 Laboratory: Laboratory Results - last 24 hr 12/05/23 05:05: WBC 8.2, RBC 4.09 L, Hgb 14.4, Hct 41.3, MCV 101.0 H, MCH 35.2 H, MCHC 34.9, RDW Std Deviation 45.2 H, RDW Coeff of Randall 12.2, Plt Count 153, MPV 10.6, Immature Gran % (Auto) 0.500, Neut % (Auto) 66.8, Lymph % (Auto) 17.6 L, Hudson % (Auto) 12.1 H, Eos % (Auto) 2.6, Baso % (Auto) 0.4, Absolute Neuts (auto) 5.5, Absolute Lymphs (auto) 1.44, Nucleated RBC % 0, Sodium 134 L, Potassium 3.6, Chloride 99, Carbon Dioxide 28.0, Anion Gap 7, BUN 11, Creatinine 0.83, Estim Creat Clear Calc 69.46, Est GFR (MDRD) Af Amer 113, Est GFR (MDRD) Non-Af 94, BUN/Creatinine Ratio 13.2, Glucose 117 H, Calcium 8.7 Radiography Diagnostic Testing: Radiology Impression Carotid Duplex 12/02/23 14:03 Interpretation Summary Minimal irregular plaque at the proximal right internal carotid artery with less than 50% stenosis Less than 50% stenosis right external carotid artery Smooth plaque at the proximal left internal carotid artery with less than 50% stenosis Less than 50% stenosis left external carotid artery Patent and antegrade vertebral arteries bilaterally No advancement of disease of the previous study of February 14, 2023 Ordering Physician: Hina Quarles Referring Physician: Jose Wolfe Performed By: Geraldo Jason, T Brain MRI 12/05/23 09:00 IMPRESSION: 1. Subcutaneous/scalp hematoma overlying the midline to right side and posterior apex of the skull/parietal bone is approximately half the size it was on the head CT dated December 02, 2023. 2. There is no evidence of acute intracranial hemorrhage or extra-axial fluid collection or midline shift. No hydrocephalus is present. 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 3. No acute infarct. Electronically Signed: Matthias Carr MD at 10:12 EDT Reading Location ID and State: [facility] / [place] , Service support , D/C Instructions Discharge Diet: Low fat / Low cholesterol Call your doctor if you observe: Fever of 101 or Higher, Shortness of breath, Dizziness, Fainting spells, Swelling in the ankles, Chest pain and Increased palpitations (irregular heartbeat) Meaningful Use Info Meaningful Use Meaningful Use Diagnoses (Choose all that apply): None applicable Ischemic Stroke Statin Dosing Therapy Reference: STATIN DOSE THERAPY REFERENCE: * Patients > 75 years receive moderate or high dose statin therapy. * Patients 75 years or YOUNGER should receive HIGH intensity statin dose unless contraindicated. You will be required to document reason for non-treatment if statin daily dose does not meet guidelines. HIGH DOSE STATIN THERAPY DAILY Atorvastatin > than or = to 40 mg Rosuvastatin > than or = to 20 mg Amlodipine + Atorvastatin > than or = to 2.5/40 mg Ezetimibe + Simvastatin 10/80 mg Simvastatin 80mg Discharge Plan Admission Admit Date/Time: 12/03/23 16:00 Attending Provider: Jose Ramon Cross Primary Care Provider: Jose Wolfe Consulting Providers: Jim Iglesias; Michael Hartmann; Sherie Zimmerman; Madalyn Acuña; Radha Davis; Palma Ye; Chinmay Vicente; Vicky Suárez; Axel Arteaga; Loco Schneider; Carol Coffey; Piyush Viera; Kassandra Brock; Alessio Plasencia; Renetta Lee; Wade Shields; Shantell Couch; Ashok Rey; Mayelin London; Yvonne Chamberlain; Conchita Portillo; Rashi Sorenson; Maximiliano Watters; ANTWAN KAY; Mateo Cordova; Candy Mccullough; Hina Quarles Discharge Orders/Prescriptions Prescriptions: New amlodipine 5 mg Tablet 5 mg PO DAILY 30 Days Qty: 30 0RF levetiracetam [Keppra] 500 mg tablet 500 mg PO BID Qty: 60 0RF Continued fluticasone furoate-vilanterol [Breo Ellipta] 100-25 mcg/dose blister with device 1 inh inhalation DAILY tamsulosin 0.4 mg capsule 0.4 mg PO DAILY Qty: 30 5RF pantoprazole [Protonix] 40 mg tablet,delayed release (DR/EC) 40 mg PO DAILY Qty: 60 1RF albuterol sulfate 90 mcg/actuation HFA aerosol inhaler 1 puff inhalation Q4H PRN (Reason: shortness of breath or wheezing) bupropion HCl 100 mg tablet sustained-release 12 hr 100 mg PO DAILY atorvastatin 80 mg tablet 80 mg PO DAILY isosorbide mononitrate 30 mg tablet extended release 24 hr 30 mg PO DAILY Qty: 90 4RF nitroglycerin 0.4 mg tablet, sublingual 0.4 mg SUBLINGUAL Q5M PRN (Reason: Chest Pain) Qty: 25 4RF Rx Instructions: Place one tab under tongue every 5 minutes x 3 doses as needed sotalol 120 mg tablet 120 mg PO BID Qty: 180 3RF furosemide 40 mg tablet 40 mg PO DAILY Qty: 90 3RF Eliquis 5 mg tablet 5 mg PO BID Qty: 180 4RF Referrals / Follow Up: Jose Wolfe MD [Primary Care Provider] - 12/13/23 11:20 am (refer to Neurology as an outpatient) Disposition Disposition (needs filled in before D/C Order can be placed): Home, Self Care Charges/Coding Visit Charges Inpatient E&M: 64992 Disch Hosp >30min
[2023-12-05 17:30] VITALS: BMI 30.7
[2023-12-06 11:09] LABS: Bedside Glucose 111 mg/dL (74-106)
== END 2023-12-05 17:31 | disposition home or self-care (01) | DRG 92 ==
LOC: ED 12:33 → PCU 12:48
PROVIDERS: Admitting Provider Student in an Organized Health Care Education/Training Program; Emergency Provider Student in an Organized Health Care Education/Training Program; PCP Internal Medicine; Visit Provider Family Medicine
DX: R47.01 Aphasia (principal); I50.32 Chronic diastolic (congestive) heart failure; I11.0 Hypertensive heart disease with heart failure; E78.2 Mixed hyperlipidemia; R56.9 Unspecified convulsions; J44.9 Chronic obstructive pulmonary disease, unspecified; I48.0 Paroxysmal atrial fibrillation; I65.23 Occlusion and stenosis of bilateral carotid arteries; I25.10 Atherosclerotic heart disease of native coronary artery without angina pectoris; S00.03XA Contusion of scalp, initial encounter; W19.XXXA Unspecified fall, initial encounter; H54.8 Legal blindness, as defined in USA; Y92.239 Unspecified place in hospital as the place of occurrence of the external cause; R29.810 Facial weakness; N40.0 Benign prostatic hyperplasia without lower urinary tract symptoms; Z79.01 Long term (current) use of anticoagulants; Z79.51 Long term (current) use of inhaled steroids; Z86.73 Personal history of transient ischemic attack (TIA), and cerebral infarction without residual deficits; Z87.891 Personal history of nicotine dependence; Z95.1 Presence of aortocoronary bypass graft; Z95.5 Presence of coronary angioplasty implant and graft
CPT/HCPCS: 36415; 70450; 70490; 70496; 70498; 70551; 70553; 71045; 80048; 80061; 82962; 83036; 84484; 85025; 85610; 85730; 92526; 92610; 93005; 93306; 93880; 94640; 94762; 95819; 97110; 97116; 97162; 97166; 97530; 97535; 97802; 99285; A9575; J7040; Q9967; A4216; J2405

== ENCOUNTER → 2024-01-13 | Outpatient (CLI) | payer MEDICARE, OTHER, SELFPAY ==
--- NOTE | 2024-01-13 13:10 | ST.MBS ---
Modified Barium Swallow Patient Information Study Date: 01/13/24 Study Time: 13:00 Direct Billable Minutes: 108 Total Minutes procedure & reportin Diagnosis: CAD I77.9; Hx of CVA w/ residual deficit I69.30 Referring Physician: Jose Wolfe Reason for Referral: Objectively assess swallow function, assess risk for aspiration, and determine recommendations for least restrictive diet textures and compensatory strategies to improve safety of swallow. Medical History: PMH: Lower extremity edema , BPH, Fatigue, Wears hearing aid and dentures and glasses, Arthritis, High cholesterol, GERD, COPD, Hx of atrial fibrillation, Sleep apnea, Anemia, Former smoker, CAD, HTN, HFpEF, Insomnia, DDD lumbar, Thrombocytopeni a, Macular degeneration (senile) of retina, Mixed hyperlipidemia, TIA, Syncope, Cardiac arrest with ventricular fibrillation, CVA (05/2018), Acute coronary thrombosis not resulting in myocardial infarction. The patient presented to [facility] ED 12/02/23 with expressive aphasia. He was admitted for CVA work up. Brain MRI revealed 1. Subcutaneous/scalp hematoma overlying the midline to right side and posterior apex of the skull/parietal bone is approximately half the size it was on the head CT dated December 02, 2023. 2. There is no evidence of acute intracranial hemorrhage or extra-axial fluid collection or midline shift. No hydrocephalus is present. Re-demonstration of multiple old lacunar infarcts and chronic ischemic changes of bilateral basal ganglia and thalamic lobes. 3. No acute infarct.. He was evaluated for dysphagia during acute stay and recommended Minced and moist textures / Thin liquids with advancement to Easy to chew textures / Thin liquids at time of discharge on 12/05/23. He was recommended OP MBSS to further assess risk for aspiration. Since acute stay at [facility], he has followed with OP ST, PT, and OT at a facility in [place]. He participated in ST to address aphasia, but has had no dysphagia therapy. He has been tolerating solids well; however, he is coughing with liquids daily. Current Diet Ordered: Regular textures / Thin liquids Mental Status: WNL (Able to follow commands to complete evaluation without difficulty) Respiratory Status: Oxygenating on Room Air Penetration-Aspiration Scale Penetration-Aspiration Scale: OBJECTIVE ASSESSMENT OF SWALLOW FUNCTION (QUANTITATIVE ? PER TRIAL): PENETRATION / ASPIRATION SCALE (SIMMONS): 1 = does not enter airway 2 = enters airway/above vocal folds/ejected 3 = enters airway/above vocal folds/not ejected 4 = enters airway/contacts vocal folds/ejected 5 = enters airway/contacts vocal folds/not ejected 6 = enters airway/below vocal folds/ejected 7 = enters airway/below vocal folds/not ejected despite effort 8 = enters airway/below vocal folds/no effort VIDEOFLOROSCOPIC SCALE SCORE (SIMMONS): Grade I = aspiration of material that has penetrated into the laryngeal vestibule, intact cough reflex Grade II = aspiration < 10 % of the bolus, intact cough reflex Grade III = aspiration of < 10 % of the bolus, reduced cough reflex or aspiration of > 10 % of the bolus, intact cough reflex Grade IV = aspiration of > 10 % of the bolus, reduced cough reflex Penetration-Aspiration Scale Score Thin Liquid via teaspoon: Result: 1= does not enter airway Thin Liquid via teaspoon Trial 2: Result: 1= does not enter airway Thin Liquid via large single sip: cup: Result: 1= does not enter airway [place] Thick Liquid via large single sip: cup: Result: 1= does not enter airway Pudding via teaspoon: Result: 1= does not enter airway Comment: Barium contrast in the trachea observed as the patient completes his first swallow of pudding - SAND CUTTER suspects SILENT post prandial aspiration of residues from previous trial (mildly/nectar thick liquids). He did begin coughing and somewhat clear the aspirated contrast after the first swallow of pudding. Esophageal screen - retention in lower esophagus with min retrograde flow. 1/2 Cookie: Result: 1= does not enter airway Thin Liquid via single sip: straw: Result: 1= does not enter airway Thin Liquid via sequential sips:straw: Result: 1= does not enter airway Oral Phase Labial Seal: Escape progressing to mid-chin (SAND CUTTER feeding pt thin by tsp) Tongue Control During Bolus Hold: Posterior escape of less than half of bolus Bolus Preparation/Mastication: Disorganized chewing/mashing with solid pieces of bolus unchewed (small piece of cookie un-chewed) Bolus Transport/Lingual Motion: Repetitive/disorganized tongue motion (lingual pumping) Oral Residue: Majority of bolus remaining (piecemeal deglutition of pudding) Pharyngeal Phase Initiation of Pharyngeal Swallow: Bolus head at posterior laryngeal surgace of epiglottis Soft Palate Elevation: No bolus between soft palate and pharyngeal wall Laryngeal Elevation: Comp. Superior move thyroid cart w/comp. apprx arytenoid cart-epig pet Anterior Hyoid Excursion: Partial anterior movement Epiglottic Movement: Complete inversion Laryngeal Vestibule Closure at Height of Swallow: Complete; no air/contrast in laryngeal vestibule Pharyngoesophageal Segment Opening: Complete distension and complete duration; no obstruction of flow Tongue Base Retraction: Narrow column of contrast between tongue base & post. pharyngeal wall Pharyngeal Residue: Trace residue within or on pharyngeal structures Esophageal Phase Esophageal Clearance: Esophageal retention w/ retrograde flow below pharyngoesophageal seg. Diagnosis/Impression Diagnosis: Mild-moderate oropharyngeal dysphagia R13.12 Impression: The oral phase is primarily marked by... -Lingual pumping for A-P transport. -Piecemeal deglutition, especially with pudding and cookie. Mild-moderate oral residue after the swallow, which mostly cleared with use of multiple swallows. -Prolonged mastication with small piece of cookie appearing un-chewed. The pharyngeal phase is primarily marked by... -Trace pharyngeal residue; however, collection of oral residues were observed to spill posteriorly to the pharynx after the swallow, increasing risk for post prandial aspiration. -Barium appeared in trachea as pt initiated the first swallow of pudding. SAND CUTTER suspects SILENT post prandial aspiration of residues from previous trial (mildly/nectar thick liquids). He did begin coughing during pudding trial and somewhat clear the aspirated contrast. Cannot definitively rule out aspiration for all the above trials due to patient's body habitus; however, there did not appear to be any laryngeal penetration or aspiration during the swallow throughout the evaluation. The esophageal phase is primarily marked by... -Esophageal retention of pudding in lower esophagus with min retrograde flow. Recommendations Diet: Regular Textures (Easy to Chew textures - IDDSI Level 7) and Thin Liquids Comment: Oral care before and after meals Compensatory Strategies: Small Bites (Chew thoroughly), Small Sips, Slow Rate, Multiple Swallows (Intermittent double swallow), Sitting upright, Remain sitting upright for 30 minutes after PO intake and Assist with verbal cues to use recommended strategies ( is always present during meals) Recommend Repeat Modified Barium Swallow: TBD Need for Skilled Speech Therapy Services: Yes Comment: -Train the patient in use of strategies to decrease risk for aspiration. -Ongoing assessment of diet tolerance of recommended textures. -Train the patient in oropharyngeal exercise program (lingual resistance and coordination, Effortful, Cesario Romero). Education Completed: 1. Described result of evaluation., 2. Pt understands evaluation & agrees with goals and treatment plan., 4. Family/caregivers understand evaluation & agree w/ goals & tx plan. and 7. Pt requires further education on strategies & risks. Comment: No immediate GI consult recommended; however, if the patient experiences s/s of reflux, increased s/s of aspiration towards the end or after meals, or sensation of retention with meals, please consider GI consult. Status Active ST Patient: Active Contact Information [facility] Speech Therapy:: Nelly Hernandez M.A. CCC-SAND CUTTER? Speech-Language Pathologist?? [facility] [address] [place] [address]? [email or web address]?? [phone]
== END | disposition home or self-care (01) ==
PROVIDERS: PCP Internal Medicine; Referring Provider Internal Medicine; Visit Provider Internal Medicine
DX: I69.30 Unspecified sequelae of cerebral infarction (principal); I77.9 Disorder of arteries and arterioles, unspecified
CPT/HCPCS: 74230; 92611

== ENCOUNTER → 2024-02-02 | Outpatient (CLI) | payer MEDICARE, OTHER, SELFPAY ==
[2024-02-02 18:04] LABS: Hematocrit 43.6 % (40-54); Hemoglobin 14.8 g/dL (13.0-16.5); Mean Corp Hgb Conc 33.9 g/dL (32-36); Mean Corpuscular Hgb 35.4 pg (27.0-32.0); Mean Corpuscular Volume 104.3 fL (80-94); Mean Platelet Vol. 11.5 fl (6.2-12.0); Platelet Count 161 K/mm3 (150-450); RBC Distribution Width CV 11.9 % (11.6-14.6); RBC Distribution Width SD 45.9 fl (35.1-43.9); Red Blood Count 4.18 M/mm3 (4.6-6.2); White Blood Count 6.6 K/mm3 (4.4-11.0)
[2024-02-02 18:50] LABS: ALB/GLOB Ratio 1.2 RATIO (0.9-2.4); AST(SGOT) 19 U/L (15-37); Alanine Aminotransfer ALT/SGPT 26 U/L (16-61); Albumin, Serum 3.6 g/dL (3.2-5.0); Alkaline Phosphatase 104 U/L (45-117); Anion Gap 7 (5-15); BUN 10 mg/dL (7-18); BUN/Creat Ratio 10.4 RATIO (10-20); Calcium,Total 9.3 mg/dL (8.5-10.1); Chloride 103 mmol/L (98-107); Creatinine, Serum 0.96 mg/dL (0.70-1.30); EST Glomerular Filtration Rate 79 mL/min (>60); Est Glom Filt Rate - Afr Amer 96 mL/min (>60); Glucose 89 mg/dL (74-106); Potassium 4.5 mmol/L (3.5-5.1); Protein, Total 6.6 g/dL (6.4-8.2); Sodium Level 137 mmol/L (136-145); Thyroid Stim Hormone (TSH) 2.87 uIU/mL (0.358-3.74)
[2024-02-02 19:05] LABS: Vitamin B12 464 pg/mL (211-911)
[2024-02-08 13:08] LABS: Vitamin B1, Thiamine 125.8 nmol/L (66.5-200.0)
== END | disposition home or self-care (01) ==
PROVIDERS: PCP Internal Medicine; Referring Provider Psychiatry & Neurology Neurology; Visit Provider Psychiatry & Neurology Neurology
DX: R47.01 Aphasia (principal); R56.9 Unspecified convulsions; I10 Essential (primary) hypertension
CPT/HCPCS: 36415; 80053; 82607; 82746; 84425; 84443; 85027

== ENCOUNTER → 2024-10-02 | Outpatient (CLI) | payer MEDICARE, OTHER, SELFPAY | END | disposition home or self-care (01) | LOC: SL 20:02 | PROVIDERS: PCP Internal Medicine; Referring Provider Psychiatry & Neurology Neurology; Visit Provider Psychiatry & Neurology Neurology | DX: G47.10 Hypersomnia, unspecified (principal) | CPT/HCPCS: 95810 ==

== ENCOUNTER → 2024-10-22 | Outpatient (CLI) | payer MEDICARE, OTHER, SELFPAY ==
--- NOTE | 2024-10-22 13:17 | MRI_ITS ---
EXAM: Noncontrast MRI of the lumbar spine. CLINICAL HISTORY: Low back pain. Evaluate for lumbar compression fracture. COMPARISON: None available TECHNIQUE: Multiplanar, multisequence MRI images of the lumbar spine were obtained without IV contrast. FINDINGS: The study assumes a presence of 5 lumbar type, [id number] vertebral bodies. Included portions of the sacrum and SI joints are intact. The included retroperitoneal and paraspinal soft tissues show no significant abnormality. The conus terminates at T12-L1. The included lower spinal cord and lower thoracic intervertebral disc spaces show no significant abnormality. There is a small but well-formed S1-2 disc space. Mild reactive endplate changes at L4- 5. There appears to be a fatty filum which extends from just above the L1-2 disc space to the S2 segment. L1-2: No focal disc herniation, significant central spinal canal, or neural foraminal narrowing. Mild degenerative facet changes. L2-3: Mild diffuse disc bulge, flattens the ventral thecal sac, without focal disc herniation or significant central spinal canal narrowing. Moderate bilateral neural foraminal narrowing, greatest on the right. Moderate degenerative facet changes. L3-4: Asymmetric right diffuse disc bulge flattens the ventral thecal sac and causes mild central spinal canal narrowing. No focal disc herniation. [id number] bilateral neural foraminal narrowing and moderate degenerative facet changes. L4-5: An asymmetric left disc bulge causes severe left central spinal canal narrowing (image 11 of the axial T2 data set). No focal disc herniation. Moderate right and severe left neural foraminal narrowing. Moderate degenerative facet changes. L5-S1: Diffuse disc bulge slightly indents the ventral thecal sac, without focal disc herniation or significant central spinal canal narrowing. [id number] right and severe left neural foraminal narrowing. Mild degenerative facet changes. MRI/Spine Lumbar (Routine) IMPRESSION: No acute bony abnormality of the lumbar spine. Moderate multilevel degenerative disc and facet disease in the lumbar spine as described level by level above. Mild reactive endplate changes at the L4-5 level. An asymmetric left posterior disc osteophyte complex along with ligamentum flav um and facet hypertrophy at the L4-5 level, results in severe left central spinal canal narrowing. Multilevel neural foraminal narrowing as described level by level above, to a s evere degree on the left at L5-S1. Reading [facility]
== END | disposition home or self-care (01) ==
PROVIDERS: PCP Internal Medicine; Referring Provider Psychiatry & Neurology Neurology; Visit Provider Psychiatry & Neurology Neurology
DX: S32.000A Wedge compression fracture of unspecified lumbar vertebra, initial encounter for closed fracture (principal); M54.50 Low back pain, unspecified; X58.XXXA Exposure to other specified factors, initial encounter
CPT/HCPCS: 72148

== ENCOUNTER → 2024-11-08 | Outpatient (CLI) | payer MEDICARE, OTHER, SELFPAY ==
[2024-11-08 12:20] LABS: Hematocrit 40.6 % (40-54); Hemoglobin 14.3 g/dL (13.0-16.5); Mean Corp Hgb Conc 35.2 g/dL (32-36); Mean Corpuscular Hgb 36.2 pg (27.0-32.0); Mean Corpuscular Volume 102.8 fL (80-94); Mean Platelet Vol. 10.9 fl (6.2-12.0); Platelet Count 146 K/mm3 (150-450); RBC Distribution Width CV 11.4 % (11.6-14.6); RBC Distribution Width SD 43.3 fl (35.1-43.9); Red Blood Count 3.95 M/mm3 (4.6-6.2); White Blood Count 7.9 K/mm3 (4.4-11.0)
[2024-11-08 13:04] LABS: Ammonia 19.8 umol/L (16-60)
[2024-11-08 13:14] LABS: ALB/GLOB Ratio 1.6 RATIO (0.9-2.4); AST(SGOT) 21 U/L (<=37); Alanine Aminotransfer ALT/SGPT 28 U/L (<=46); Albumin, Serum 3.6 g/dL (3.4-4.8); Alkaline Phosphatase 110 U/L (40-129); Anion Gap 9 (5-15); BUN 7 mg/dL (4-19); BUN/Creat Ratio 7.8 RATIO (10-20); Calcium,Total 8.7 mg/dL (7.6-11.0); Carbon Dioxide 26.1 mmol/L (21.0-32.0); Chloride 105 mmol/L (98-108); Creatinine, Serum 0.91 mg/dL (0.70-1.20); EST Glomerular Filtration Rate 83 (>60); Globulin 2.3 g/dL (2.2-4.2); Glucose 100 mg/dL (70-99); Magnesium 2.1 mg/dL (1.5-2.2); Potassium 4.1 mmol/L (3.3-5.1); Protein, Total 5.9 g/dL (5.9-8.4); Sodium Level 140 mmol/L (133-145); Total Bilirubin 0.88 mg/dL (0.00-1.30)
[2024-11-10 12:08] LABS: KEPPRA (LEVETIRACETAM) 28.6 ug/mL (10.0-40.0)
[2024-11-12 11:08] LABS: Vitamin D 1,25-Dihydroxy 29.1 pg/mL (24.8-81.5)
== END | disposition home or self-care (01) ==
LOC: LAB 11:32
PROVIDERS: PCP Internal Medicine; Referring Provider Psychiatry & Neurology Neurology; Visit Provider Psychiatry & Neurology Neurology
DX: I10 Essential (primary) hypertension (principal); G40.909 Epilepsy, unspecified, not intractable, without status epilepticus; G47.10 Hypersomnia, unspecified
CPT/HCPCS: 36415; 80053; 80177; 82140; 82652; 83735; 84443; 85027

== ENCOUNTER → 2025-01-07 | Outpatient (CLI) | payer MEDICARE, OTHER, SELFPAY | END | disposition home or self-care (01) | LOC: LABSPEC 15:36 | PROVIDERS: PCP Internal Medicine; Referring Provider Urology; Visit Provider Urology | DX: N39.0 Urinary tract infection, site not specified (principal) | CPT/HCPCS: 87077; 87086; 87088; 87186 ==

== ENCOUNTER 2025-02-15 15:00 | Observation (INO) | payer MEDICARE, OTHER, SELFPAY ==
--- NOTE | 2025-02-14 13:10 | EKG12_ITS ---
Test Reason : PRE OP Blood Pressure : */* mmHG Vent. Rate : 64 BPM Atrial Rate : 64 BPM P-R Int : 236 ms QRS Dur : 82 ms QT Int : 500 ms P-R-T Axes : 73 23 65 degrees QTcB Int : 515 ms Sinus rhythm with sinus arrhythmia with 1st degree A-V block Low voltage QRS Prolonged QT Abnormal ECG Confirmed by TERRY MEJIA, STEFFI ([id number]), editor map HUYEN LI ([id number]) on 02/15/2025 5:57:52 AM Referred By: Del Matthews Confirmed By: STEFFI STEWART MD
--- NOTE | 2025-02-14 13:10 | EKG12_ITS ---
Test Reason : PRE OP Blood Pressure : */* mmHG Vent. Rate : 64 BPM Atrial Rate : 64 BPM P-R Int : 236 ms QRS Dur : 82 ms QT Int : 500 ms P-R-T Axes : 73 23 65 degrees QTcB Int : 515 ms Sinus rhythm with sinus arrhythmia with 1st degree A-V block Low voltage QRS Prolonged QT Abnormal ECG Confirmed by TERRY MEJIA, STEFFI ([id number]), marketing editor HUYEN LI ([id number]) on 02/15/2025 5:57:52 AM Referred By: Del Matthews Confirmed By: STEFFI STEWART MD
[2025-02-14 15:24] LABS: Hematocrit 39.2 % (40-54); Hemoglobin 13.8 g/dL (13.0-16.5); Mean Corp Hgb Conc 35.2 g/dL (32-36); Mean Corpuscular Volume 103.4 fL (80-94); Mean Platelet Vol. 11.5 fl (6.2-12.0); Platelet Count 124 K/mm3 (150-450); RBC Distribution Width CV 12.1 % (11.6-14.6); RBC Distribution Width SD 45.4 fl (35.1-43.9); Red Blood Count 3.79 M/mm3 (4.6-6.2); White Blood Count 7.7 K/mm3 (4.4-11.0)
--- NOTE | 2025-02-14 16:25 | PAT.ANE_ITS ---
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 When Was Last Pacemaker Check QUESTION #4 FULL TEXT: You/Your Family Experience fever (hyperthermia) with Anesthesia Last Oral Intake Last Oral intake: Last Oral Intake NPO since Meds taken in AM with sips of water? 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 Has anyone observed you stop No 02/14/25 09:17 breathing during sleep? STOP Results Negative 02/14/25 09:17 QUESTION #5 FULL TEXT : Do you snore loudly (louder than talking or can be heard through closed doors)? 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 Specify any problems Hx of Preganancy in last 3 N/A 02/14/25 09:17 Months Nurse Filling Out Transfusion NBUCHER 02/14/25 09:17 & Questions: Date: 02/14/25 02/14/25 09:17 Time: 09:18 02/14/25 09:17 Patient unable to answer at this time (ie. 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: /Reproductive Hx- brine tank separator operator Hx Now No 02/14/25 09:17 Gestational Age (in weeks): EDC: Hx Hx Para Hx Section SAB No 02/14/25 09:17 Active Medications Active Medications: Current Medications Generic Name Dose Route Start Last Admin Trade Name Freq PRN Reason Stop Dose Admin Cefazolin Sodium 2 gm/ Sodium 110 mls @ 200 mls/hr 02/15/25 14:05 Chloride IV 02/15/25 14:37 INTRAOP ONE [facility] Medical History (Updated 02/14/25 @ 09:31 by Aureila Choi) Loss of hearing History of Clostridium difficile infection Prostate disease Restless legs Seizures Shortness of breath on exertion Chronic cough History of edema Chest pain Lower extremity edema BPH (benign prostatic hyperplasia) Fatigue Wears hearing aid Wears dentures Wears glasses Arthritis High cholesterol Gastric reflux COPD (chronic obstructive pulmonary disease) History of echocardiogram History of stress test Cardiology follow-up encounter History of atrial fibrillation Sleep apnea Anemia Former smoker Atrial fibrillation Coronary artery disease Hypertension Fatigue (HFpEF) heart failure with preserved ejection fraction Insomnia DDD (degenerative disc disease), lumbar Thrombocytopenia Actinic skin damage Esophageal reflux Macular degeneration (senile) of retina, unspecified Mixed hyperlipidemia TIA (transient ischemic attack) Syncope Cardiac arrest with ventricular fibrillation Essential (primary) hypertension HLD (hyperlipidemia) Paroxysmal A-fib CVA (cerebral vascular accident) (05/2018) Acute coronary thrombosis not resulting in myocardial infarction Home Medications ?Medication ?Instructions ?Recorded ?Last Taken ?Type pantoprazole 40 mg tablet,delayed 40 mg PO DAILY #60 t abs 07/14/22 12/01/23 Rx release (Protonix) furosemide 40 mg tablet 40 mg PO DAILY #90 tabs 09/01/0712/01/23 Rx apixaban 5 mg tablet (Eliquis) 5 mg PO BID #180 tabs 1 08/27/23 Unknown Rx atorvastatin 80 mg tablet 80 mg PO DAILY for cholester ol #90 07/06/24 Unknown Rx TABLETS benzonatate 100 mg capsule 100 mg PO BID PRN cough #18 0 caps 11/19/24 Unknown Rx cholecalciferol (vitamin D3) 1,250 1,250 mcg PO QWEEK #12 caps 11/19/24 Unknown Rx mcg (50,000 unit) capsule memantine 28 mg capsule 28 mg PO DAILY #90 ea Unknown Rx sprinkle,extended release 24hr ropinirole 0.5 mg tablet 0.5 mg PO QHS #90 tabs 11/19 Unknown Rx sotalol 120 mg tablet 120 mg PO BID for blood pres sure 01/02/25 Unknown Rx #180 TABLETS nitroglycerin 0.4 mg sublingual 0.4 mg sublingual Q5M PRN Chest 02/05/25 Unknown Rx tablet Pain #25 tabs Allergy/AdvReac Type Severity Reaction Status Date / Time lisinopril Allergy Severe Cough Verified 02/14/25 09:09 oxycodone (From Percocet) Allergy Severe Hallucinati Verified 02/14/25 09:09 ons pravastatin Allergy Intermediate Myalgia Verified 02/14/25 09:09 Quinolones Allergy Unknown Unknown Verified 02/14/25 09:09 pregabalin (From Lyrica) AdvReac Severe depression Verified 02/14/25 09:09 Family History Mother No problems noted. Father Cancer Sister Cancer Surgical History History of esophagogastroduodenoscopy (EGD) History of cardiac catheterization Hx of hernia repair Hx of colonoscopy History of left heart catheterization (09/2016) History of incisional hernia repair History of coronary artery stent placement (08/06/12) H/O coronary artery bypass surgery (03/27/04) History of tonsillectomy History of cholecystectomy Social History (Updated 11/16/24 @ 14:40 by Sandy Ellsworth PROFESSIONAL MODEL, PROFESSIONAL MODEL-C) Smoking Status: Former smoker pack-years: 37 Tobacco: How many years used: 25 how long ago did patient quit smokin alcohol intake: current alcohol intake frequency: 0-2 drinks per day Alcohol type: beer and hard liquor substance use type: does not use caffeine: Yes Type: coffee Number of servings: 2 what type of physical activity do you participate in: none seatbelt use: always do you feel safe at home: Yes Audit: Pertinent Findings Pertinent Findings EKG Perinent findings: EKG 12/05/2023 sinus rhythm with marked sinus arrhythmia with first-degree AV block prolonged QT Echo (EF%) pertinent findings: Echo 12/02/2023. EF 60%. No evidence of diastolic dysfunction. No regional wall motion abnormalities noted. Consult pertinent findings: Cardiology visit 04/26/2024. 84-year-old male with history of CAD s/p coronary bypass in 2003. He did have stenting of his right coronary artery in 2012. His cardiac cath in October 11 demonstrated ACOSTA to LAD which was atretic, patent saphenous vein graft to the posterior descending artery, saphenous vein graft to diagonal vessel, and patent stent in the right coronary artery. He has a history of paroxysmal A-fib, previous TIA, hypertension and hyperlipidemia. Stress test in 05/2022 was negative for ischemia. He will continue sotalol for rate and rhythm control. He will continue Eliquis for CVA protection. Recommendation Anesthesia Recommendation Anesthesia recommendation: OPTIMIZED for anesthesia
--- NOTE | 2025-02-14 16:25 | PAT.ANE_ITS ---
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 When Was Last Pacemaker Check QUESTION #4 FULL TEXT: You/Your Family Experience fever (hyperthermia) with Anesthesia Last Oral Intake Last Oral intake: Last Oral Intake NPO since Meds taken in AM with sips of water? 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: PONV - instructor psychiatric aide Female No 02/14/25 09:17 HX of Motion Sickness No 02/14/25 09:17 HX of N/V After Surgery No 02/14/25 09:17 Non-Smoker Yes 02/14/25 09:17 Duration of Surgery greater Yes 02/14/25 09:17 than 60 minutes Number of Risk Factors 2 02/14/25 09:17 PONV Score Moderate Risk 02/14/25 09:17 Height & Weight Height & Weight: Anesthesia: Height & Weight Height 5 ft 6 in 12/31/24 11:36 Respiratory Assessment Respiratory Assessment - instructor psychiatric aide: Respiratory Tract Infection Hx - instructor psychiatric aide Hx Respiratory Tract Infection No 02/14/25 09:17 STOP Sleep Apnea STOP Sleep Apnea - instructor psychiatric aide: STOP Sleep Apnea - instructor psychiatric aide Hx Hypertension Yes: controlled with med 02/14/25 09:17 Hx Sleep Apnea No 02/14/25 09:17 CPAP No 08/30/22 14:35 BIPAP Do you snore loudly (louder No 02/14/25 09:17 than talking or can be heard Do you often feel tired/ No 02/14/25 09:17 fatigued/ sleepy during daytime? Has anyone observed you stop No 02/14/25 09:17 breathing during sleep? STOP Results Negative 02/14/25 09:17 QUESTION #5 FULL TEXT : Do you snore loudly (louder than talking or can be heard through closed doors)? 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 Specify any problems Hx of Preganancy in last 3 N/A 02/14/25 09:17 Months Nurse Filling Out Transfusion [facility] 02/14/25 09:17 & Questions: Date: 02/14/25 02/14/25 09:17 Time: 09:18 02/14/25 09:17 Patient unable to answer at this time (ie. confused, unrespo /Reproduction History /Reproductive History - instructor psychiatric aide: /Reproductive Hx- instructor psychiatric aide Hx Now No 02/14/25 09:17 Gestational Age (in weeks): EDC: Hx Hx Para Hx Section SAB No 02/14/25 09:17 Active Medications Active Medications: Current Medications Generic Name Dose Route Start Last Admin Trade Name Freq PRN Reason Stop Dose Admin Cefazolin Sodium 2 gm/ Sodium 110 mls @ 200 mls/hr 02/15/25 14:05 Chloride IV 02/15/25 14:37 INTRAOP ONE [facility] Medical History (Updated 02/14/25 @ 09:31 by Aurelia Choi) Loss of hearing History of Clostridium difficile infection Prostate disease Restless legs Seizures Shortness of breath on exertion Chronic cough History of edema Chest pain Lower extremity edema BPH (benign prostatic hyperplasia) Fatigue Wears hearing aid Wears dentures Wears glasses Arthritis High cholesterol Gastric reflux COPD (chronic obstructive pulmonary disease) History of echocardiogram History of stress test Cardiology follow-up encounter History of atrial fibrillation Sleep apnea Anemia Former smoker Atrial fibrillation Coronary artery disease Hypertension Fatigue (HFpEF) heart failure with preserved ejection fraction Insomnia DDD (degenerative disc disease), lumbar Thrombocytopenia Actinic skin damage Esophageal reflux Macular degeneration (senile) of retina, unspecified Mixed hyperlipidemia TIA (transient ischemic attack) Syncope Cardiac arrest with ventricular fibrillation Essential (primary) hypertension HLD (hyperlipidemia) Paroxysmal A-fib CVA (cerebral vascular accident) (05/2018) Acute coronary thrombosis not resulting in myocardial infarction Home Medications ?Medication ?Instructions ?Recorded ?Last Taken ?Type pantoprazole 40 mg tablet,delayed 40 mg PO DAILY #60 t abs 07/14/22 12/01/23 Rx release (Protonix) furosemide 40 mg tablet 40 mg PO DAILY #90 tabs 09/01/0712/01/23 Rx apixaban 5 mg tablet (Eliquis) 5 mg PO BID #180 tabs 1 08/27/23 Unknown Rx atorvastatin 80 mg tablet 80 mg PO DAILY for cholester ol #90 07/06/24 Unknown Rx TABLETS benzonatate 100 mg capsule 100 mg PO BID PRN cough #18 0 caps 11/19/24 Unknown Rx cholecalciferol (vitamin D3) 1,250 1,250 mcg PO QWEEK #12 caps 11/19/24 Unknown Rx mcg (50,000 unit) capsule memantine 28 mg capsule 28 mg PO DAILY #90 ea Unknown Rx sprinkle,extended release 24hr ropinirole 0.5 mg tablet 0.5 mg PO QHS #90 tabs 11/19 Unknown Rx sotalol 120 mg tablet 120 mg PO BID for blood pres sure 01/02/25 Unknown Rx #180 TABLETS nitroglycerin 0.4 mg sublingual 0.4 mg sublingual Q5M PRN Chest 02/05/25 Unknown Rx tablet Pain #25 tabs Allergy/AdvReac Type Severity Reaction Status Date / Time lisinopril Allergy Severe Cough Verified 02/14/25 09:09 oxycodone (From Percocet) Allergy Severe Hallucinati Verified 02/14/25 09:09 ons pravastatin Allergy Intermediate Myalgia Verified 02/14/25 09:09 Quinolones Allergy Unknown Unknown Verified 02/14/25 09:09 pregabalin (From Lyrica) AdvReac Severe depression Verified 02/14/25 09:09 Family History (Reviewed 11/16/24 @ 14:39 by Sandy Ellsworth KEYPUNCH OPERATORS SUPERVISOR, KEYPUNCH OPERATORS SUPERVISOR-C) Mother No problems noted. Father Cancer Sister Cancer Surgical History History of esophagogastroduodenoscopy (EGD) History of cardiac catheterization Hx of hernia repair Hx of colonoscopy History of left heart catheterization (09/2016) History of incisional hernia repair History of coronary artery stent placement (08/06/12) H/O coronary artery bypass surgery (03/27/04) History of tonsillectomy History of cholecystectomy Social History (Updated 11/16/24 @ 14:40 by Sandy Ellsworth KEYPUNCH OPERATORS SUPERVISOR, KEYPUNCH OPERATORS SUPERVISOR-C) Smoking Status: Former smoker pack-years: 37 Tobacco: How many years used: 25 how long ago did patient quit smokin alcohol intake: current alcohol intake frequency: 0-2 drinks per day Alcohol type: beer and hard liquor substance use type: does not use caffeine: Yes Type: coffee Number of servings: 2 what type of physical activity do you participate in: none seatbelt use: always do you feel safe at home: Yes Audit: Pertinent Findings Pertinent Findings EKG Perinent findings: EKG 12/05/2023 sinus rhythm with marked sinus arrhythmia with first-degree AV block prolonged QT Echo (EF%) pertinent findings: Echo 12/02/2023. EF 60%. No evidence of diastolic dysfunction. No regional wall motion abnormalities noted. Consult pertinent findings: Cardiology visit 04/26/2024. 84-year-old male with history of CAD s/p coronary bypass in 2003. He did have stenting of his right coronary artery in 2012. His cardiac cath in October 11 demonstrated ACOSTA to LAD which was atretic, patent saphenous vein graft to the posterior descending artery, saphenous vein graft to diagonal vessel, and patent stent in the right coronary artery. He has a history of paroxysmal A-fib, previous TIA, hypertension and hyperlipidemia. Stress test in 05/2022 was negative for ischemia. He will continue sotalol for rate and rhythm control. He will continue Eliquis for CVA protection. Recommendation Anesthesia Recommendation Anesthesia recommendation: OPTIMIZED for anesthesia
[2025-02-14 17:31] LABS: Anion Gap 11 (5-15); BUN 10 mg/dL (4-19); BUN/Creat Ratio 10.5 RATIO (10-20); Calcium,Total 8.9 mg/dL (7.6-11.0); Carbon Dioxide 24.6 mmol/L (21.0-32.0); Chloride 102 mmol/L (98-108); Glucose 89 mg/dL (70-99); Potassium 4.2 mmol/L (3.3-5.1)
[2025-02-15] VITALS (15 sets, daily range): BP systolic 124–183; BP diastolic 60–84; PULSE 51–71; RESP 16–18; TEMP 36.2–36.9; O2SAT 93–99; BMI 30.7
--- NOTE | 2025-02-15 07:00 | HP.PCM_ITS ---
HPI - General General Date of Service: 02/15/25 Chief Complaint: BPH with obstruction HPI Narrative RO SWAN, is a 84 M who presents for a transurethral resection of the prostate he has a large obstructing prostate and would not proceed with resection of the prostate [facility] Medical History (Updated 02/14/25 @ 09:31 by Aurelia Choi) Loss of hearing History of Clostridium difficile infection Prostate disease Restless legs Seizures Shortness of breath on exertion Chronic cough History of edema Chest pain Lower extremity edema BPH (benign prostatic hyperplasia) Fatigue Wears hearing aid Wears dentures Wears glasses Arthritis High cholesterol Gastric reflux COPD (chronic obstructive pulmonary disease) History of echocardiogram History of stress test Cardiology follow-up encounter History of atrial fibrillation Sleep apnea Anemia Former smoker Atrial fibrillation Coronary artery disease Hypertension Fatigue (HFpEF) heart failure with preserved ejection fraction Insomnia DDD (degenerative disc disease), lumbar Thrombocytopenia Actinic skin damage Esophageal reflux Macular degeneration (senile) of retina, unspecified Mixed hyperlipidemia TIA (transient ischemic attack) Syncope Cardiac arrest with ventricular fibrillation Essential (primary) hypertension HLD (hyperlipidemia) Paroxysmal A-fib CVA (cerebral vascular accident) (05/2018) Acute coronary thrombosis not resulting in myocardial infarction Home Medications ?Medication ?Instructions ?Recorded ?Last Taken ?Type pantoprazole 40 mg tablet,delayed 40 mg PO DAILY #60 t abs 07/14/22 12/01/23 Rx release (Protonix) furosemide 40 mg tablet 40 mg PO DAILY #90 tabs 0901/0712/01/23 Rx apixaban 5 mg tablet (Eliquis) 5 mg PO BID #180 tabs 1 08/27/23 Unknown Rx atorvastatin 80 mg tablet 80 mg PO DAILY for cholester ol #90 07/06/24 Unknown Rx TABLETS benzonatate 100 mg capsule 100 mg PO BID PRN cough #18 0 caps 11/19/24 Unknown Rx cholecalciferol (vitamin D3) 1,250 1,250 mcg PO QWEEK #12 caps 11/19/24 Unknown Rx mcg (50,000 unit) capsule memantine 28 mg capsule 28 mg PO DAILY #90 ea Unknown Rx sprinkle,extended release 24hr ropinirole 0.5 mg tablet 0.5 mg PO QHS #90 tabs 11/19 Unknown Rx sotalol 120 mg tablet 120 mg PO BID for blood pres sure 06/18/25 Unknown Rx #180 TABLETS nitroglycerin 0.4 mg sublingual 0.4 mg sublingual Q5M PRN Chest 02/05/25 Unknown Rx tablet Pain #25 tabs Allergy/AdvReac Type Severity Reaction Status Date / Time lisinopril Allergy Severe Cough Verified 02/14/25 09:09 oxycodone (From Percocet) Allergy Severe Hallucinati Verified 02/14/25 09:09 ons pravastatin Allergy Intermediate Myalgia Verified 02/14/25 09:09 Quinolones Allergy Unknown Unknown Verified 02/14/25 09:09 pregabalin (From Lyrica) AdvReac Severe depression Verified 02/14/25 09:09 Family History (Reviewed 11/16/24 @ 14:39 by Sandy Ellsworth RADIOTELEGRAPH OPERATOR SERVICER, RADIOTELEGRAPH OPERATOR SERVICER-C) Mother No problems noted. Father Cancer Sister Cancer Surgical History History of esophagogastroduodenoscopy (EGD) History of cardiac catheterization Hx of hernia repair Hx of colonoscopy History of left heart catheterization (09/2016) History of incisional hernia repair History of coronary artery stent placement (08/06/12) H/O coronary artery bypass surgery (03/27/04) History of tonsillectomy History of cholecystectomy Social History (Updated 11/16/24 @ 14:40 by Sandy Ellsworth RADIOTELEGRAPH OPERATOR SERVICER, RADIOTELEGRAPH OPERATOR SERVICER-C) Smoking Status: Former smoker pack-years: 37 Tobacco: How many years used: 25 how long ago did patient quit smokin alcohol intake: current alcohol intake frequency: 0-2 drinks per day Alcohol type: beer and hard liquor substance use type: does not use caffeine: Yes Type: coffee Number of servings: 2 what type of physical activity do you participate in: none seatbelt use: always do you feel safe at home: Yes Results Lab / Micro Data 02/14/25 13:00 02/14/25 13:00 Labs: Laboratory Results - last 24 hr 02/14/25 13:00: WBC 7.7, RBC 3.79 L, Hgb 13.8, Hct 39.2 L, MCV 103.4 H, MCH 36.4 H, MCHC 35.2, RDW Std Deviation 45.4 H, RDW Coeff of Randall 12.1, Plt Count 124 L, MPV 11.5, Sodium 138, Potassium 4.2, Chloride 102, Carbon Dioxide 24.6, Anion Gap 11, BUN 10, Creatinine 0.95, Est GFR (MDRD) Non-Af 79, BUN/Creatinine Ratio 10.5, Glucose 89, Calcium 8.9
--- NOTE | 2025-02-15 07:00 | HP.PCM_ITS ---
HPI - General General Date of Service: 02/15/25 Chief Complaint: BPH with obstruction HPI Narrative RO SWAN, is a 84 M who presents for a transurethral resection of the prostate he has a large obstructing prostate and would not proceed with resection of the prostate [facility] Medical History (Updated 02/14/25 @ 09:31 by Aurelia Choi) Loss of hearing History of Clostridium difficile infection Prostate disease Restless legs Seizures Shortness of breath on exertion Chronic cough History of edema Chest pain Lower extremity edema BPH (benign prostatic hyperplasia) Fatigue Wears hearing aid Wears dentures Wears glasses Arthritis High cholesterol Gastric reflux COPD (chronic obstructive pulmonary disease) History of echocardiogram History of stress test Cardiology follow-up encounter History of atrial fibrillation Sleep apnea Anemia Former smoker Atrial fibrillation Coronary artery disease Hypertension Fatigue (HFpEF) heart failure with preserved ejection fraction Insomnia DDD (degenerative disc disease), lumbar Thrombocytopenia Actinic skin damage Esophageal reflux Macular degeneration (senile) of retina, unspecified Mixed hyperlipidemia TIA (transient ischemic attack) Syncope Cardiac arrest with ventricular fibrillation Essential (primary) hypertension HLD (hyperlipidemia) Paroxysmal A-fib CVA (cerebral vascular accident) (05/2018) Acute coronary thrombosis not resulting in myocardial infarction Home Medications ?Medication ?Instructions ?Recorded ?Last Taken ?Type pantoprazole 40 mg tablet,delayed 40 mg PO DAILY #60 t abs 07/14/22 12/01/23 Rx release (Protonix) furosemide 40 mg tablet 40 mg PO DAILY #90 tabs 0901/0712/01/23 Rx apixaban 5 mg tablet (Eliquis) 5 mg PO BID #180 tabs 1 08/27/23 Unknown Rx atorvastatin 80 mg tablet 80 mg PO DAILY for cholester ol #90 07/06/24 Unknown Rx TABLETS benzonatate 100 mg capsule 100 mg PO BID PRN cough #18 0 caps 11/19/24 Unknown Rx cholecalciferol (vitamin D3) 1,250 1,250 mcg PO QWEEK #12 caps 11/19/24 Unknown Rx mcg (50,000 unit) capsule memantine 28 mg capsule 28 mg PO DAILY #90 ea Unknown Rx sprinkle,extended release 24hr ropinirole 0.5 mg tablet 0.5 mg PO QHS #90 tabs 11/19 Unknown Rx sotalol 120 mg tablet 120 mg PO BID for blood pres sure 06/18/25 Unknown Rx #180 TABLETS nitroglycerin 0.4 mg sublingual 0.4 mg sublingual Q5M PRN Chest 02/05/25 Unknown Rx tablet Pain #25 tabs Allergy/AdvReac Type Severity Reaction Status Date / Time lisinopril Allergy Severe Cough Verified 02/14/25 09:09 oxycodone (From Percocet) Allergy Severe Hallucinati Verified 02/14/25 09:09 ons pravastatin Allergy Intermediate Myalgia Verified 02/14/25 09:09 Quinolones Allergy Unknown Unknown Verified 02/14/25 09:09 pregabalin (From Lyrica) AdvReac Severe depression Verified 02/14/25 09:09 Family History (Reviewed 11/16/24 @ 14:39 by Sandy Ellsworth SANDING MACHINE OPERATOR, SANDING MACHINE OPERATOR-C) Mother No problems noted. Father Cancer Sister Cancer Surgical History History of esophagogastroduodenoscopy (EGD) History of cardiac catheterization Hx of hernia repair Hx of colonoscopy History of left heart catheterization (09/2016) History of incisional hernia repair History of coronary artery stent placement (08/06/12) H/O coronary artery bypass surgery (03/27/04) History of tonsillectomy History of cholecystectomy Social History (Updated 11/16/24 @ 14:40 by Sandy Ellsworth SANDING MACHINE OPERATOR, SANDING MACHINE OPERATOR-C) Smoking Status: Former smoker pack-years: 37 Tobacco: How many years used: 25 how long ago did patient quit smokin alcohol intake: current alcohol intake frequency: 0-2 drinks per day Alcohol type: beer and hard liquor substance use type: does not use caffeine: Yes Type: coffee Number of servings: 2 what type of physical activity do you participate in: none seatbelt use: always do you feel safe at home: Yes Results Lab / Micro Data 02/14/25 13:00 02/14/25 13:00 Labs: Laboratory Results - last 24 hr 02/14/25 13:00: WBC 7.7, RBC 3.79 L, Hgb 13.8, Hct 39.2 L, MCV 103.4 H, MCH 36.4 H, MCHC 35.2, RDW Std Deviation 45.4 H, RDW Coeff of Randall 12.1, Plt Count 124 L, MPV 11.5, Sodium 138, Potassium 4.2, Chloride 102, Carbon Dioxide 24.6, Anion Gap 11, BUN 10, Creatinine 0.95, Est GFR (MDRD) Non-Af 79, BUN/Creatinine Ratio 10.5, Glucose 89, Calcium 8.9
[2025-02-15] MEDS: Lactated Ringers 1,000 ML 15 ML IV (13:05)
--- NOTE | 2025-02-15 13:38 | PRE.ANES_ITS ---
ASA Classification* ASA Classification ASA Classification: 3 Assessment & Plan Anesthesia* Anesthesia Assessment Anesthesia Assessment: Discussed sedation and/or anesthesia options, risks, benefits, and alternatives with patient/parents/legal guardian/POA. Questions invited. The patient/parents/legal guardian/POA seems to understand and agrees to proceed with anesthesia plan. Reviewed the physical assessment, medical history, allergy history and patient home medications list prior to surgery/procedure/anesthetic and documented any changes. Performed airway and anesthesia risk assessments. Anesthesia Type Anesthesia Type: General History Source History Obtained from:: Patient and Chart Anesthesia Focused Assessment* Temperature: 97.3 F Pulse Rate: 71 Blood Pressure: 153/83 Respiratory Rate: 16 Pulse Ox: 99 Oxygen Delivery Method: Room Air Airway Assessment Mouth opens: >3 cm Mallampati Score: I Teeth Condition: Dentures (Patient has full upper and lower dentures. They will come out.) Neck Range of motion (ROM): Limited ROM (Slight Decrease) Labs Anesthesia Preop lab: CBC WBC 7.7 K/mm3 (4.4-11.0) 02/14/25 13:00 02/14/25 RBC 3.79 M/mm3 (4.6-6.2) L 02/14/25 13:00 02/14/25 Hgb 13.8 g/dL (13.0-16.5) 02/14/25 13:00 02/14/25 Hct 39.2 % (40-54) L 02/14/25 13:00 02/14/25 Plt Count 124 K/mm3 (150-450) L 02/14/25 13:00 02/14/25 CHEMISTRY Potassium 4.2 mmol/L (3.3-5.1) 02/14/25 13:00 02/14/25 Sodium 138 mmol/L (133-145) 02/14/25 13:00 02/14/25 Magnesium 2.1 mg/dL (1.5-2.2) 11/08/24 11:48 11/08/24 Phosphorus 3.2 mg/dL (2.5-4.9) 09/26/23 07:22 09/26/23 BUN 10 mg/dL (4-19) 02/14/25 13:00 02/14/25 Creatinine 0.95 mg/dL (0.70-1.20) 02/14/25 13:00 02/14/25 Glucose 89 mg/dL (70-99) 02/14/25 13:00 02/14/25 POC Glucose 111 mg/dL (74-106) H 12/02/23 10:43 12/02/23 TSH 3.440 uIU/mL (0.300-4.200) 11/08/24 11:48 10/17 11/09 COAG PT 16.1 SECONDS (11.7-14.9) H 12/02/23 10:45 11/15 02/07 Pre-Assessment Diagnosis/Proposed Procedure Planned Operative Procedure(s): turp Anesthesia History 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 When Was Last Pacemaker Check QUESTION #4 FULL TEXT: You/Your Family Experience fever (hyperthermia) with Anesthesia Last Oral Intake Last Oral intake: Last Oral Intake NPO since 14:00 02/15/25 12:23 Meds taken in AM with sips of water? Meds patient instructed to take am of surgery Any additional information?: Yes NPO since: 00:00 Meds taken in AM with sips of water?: Yes PONV PONV - stacker driver: PONV - stacker driver Female No 02/14/25 09:17 HX of Motion Sickness No 02/14/25 09:17 HX of N/V After Surgery No 02/14/25 09:17 Non-Smoker Yes 02/14/25 09:17 Duration of Surgery greater Yes 02/14/25 09:17 than 60 minutes Number of Risk Factors 2 02/14/25 09:17 PONV Score Moderate Risk 02/14/25 09:17 Height & Weight Height & Weight: Anesthesia: Height & Weight Height 5 ft 6 in 02/15/25 12:23 Weight: 86.5 kg 02/15/25 12:23 Body Mass Index (BMI) 30.7 02/15/25 12:23 Respiratory Assessment Respiratory Assessment - stacker driver: Respiratory Tract Infection Hx - stacker driver Hx Respiratory Tract Infection No 02/14/25 09:17 STOP Sleep Apnea STOP Sleep Apnea - stacker driver: STOP Sleep Apnea - stacker driver Hx Hypertension Yes: controlled with med 02/14/25 09:17 Hx Sleep Apnea No 02/14/25 09:17 CPAP No 08/30/22 14:35 BIPAP Do you snore loudly (louder No 02/14/25 09:17 than talking or can be heard Do you often feel tired/ No 02/14/25 09:17 fatigued/ sleepy during daytime? Has anyone observed you stop No 02/14/25 09:17 breathing during sleep? STOP Results Negative 02/14/25 09:17 QUESTION #5 FULL TEXT : Do you snore loudly (louder than talking or can be heard through closed doors)? 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 Specify any problems Hx of Preganancy in last 3 N/A 02/14/25 09:17 Months Nurse Filling Out Transfusion NBUCHER 02/14/25 09:17 & Questions: Date: 02/14/25 02/14/25 09:17 Time: 09:18 02/14/25 09:17 Patient unable to answer at this time (ie. confused, unrespo /Reproduction History /Reproductive History - stacker driver: /Reproductive Hx- stacker driver Hx Now No 02/14/25 09:17 Gestational Age (in weeks): EDC: Hx Hx Para Hx Section SAB No 02/14/25 09:17 Active Medications Active Medications: Current Medications Generic Name Dose Route Start Last Admin Trade Name Freq PRN Reason Stop Dose Admin Cefazolin Sodium 2 gm/ Sodium 110 mls @ 200 mls/hr 02/15/25 14:05 Chloride IV 02/15/25 14:37 INTRAOP ONE Lactated Ringer's 1,000 mls @ 15 mls/hr 02/15/25 12:00 02/15/25 13:05 IV 15 mls/hr .Q48H AMANDA Administration PFSH Medical History (Updated 02/14/25 @ 09:31 by Aurelia Choi) Loss of hearing History of Clostridium difficile infection Prostate disease Restless legs Seizures Shortness of breath on exertion Chronic cough History of edema Chest pain Lower extremity edema BPH (benign prostatic hyperplasia) Fatigue Wears hearing aid Wears dentures Wears glasses Arthritis High cholesterol Gastric reflux COPD (chronic obstructive pulmonary disease) History of echocardiogram History of stress test Cardiology follow-up encounter History of atrial fibrillation Sleep apnea Anemia Former smoker Atrial fibrillation Coronary artery disease Hypertension Fatigue (HFpEF) heart failure with preserved ejection fraction Insomnia DDD (degenerative disc disease), lumbar Thrombocytopenia Actinic skin damage Esophageal reflux Macular degeneration (senile) of retina, unspecified Mixed hyperlipidemia TIA (transient ischemic attack) Syncope Cardiac arrest with ventricular fibrillation Essential (primary) hypertension HLD (hyperlipidemia) Paroxysmal A-fib CVA (cerebral vascular accident) (05/2018) Acute coronary thrombosis not resulting in myocardial infarction Home Medications ?Medication ?Instructions ?Recorded ?Last Taken ?Type pantoprazole 40 mg tablet,delayed 40 mg PO DAILY #60 t abs 07/14/22 02/15/25 08: 00 Rx release (Protonix) furosemide 40 mg tablet 40 mg PO DAILY #90 tabs 01/0712/01/23 Rx apixaban 5 mg tablet (Eliquis) 5 mg PO BID #180 tabs 1 08/27/23 02/12/25 Rx atorvastatin 80 mg tablet 80 mg PO DAILY for cholester ol #90 07/06/24 02/14/25 Rx TABLETS benzonatate 100 mg capsule 100 mg PO BID PRN cough #18 0 caps 11/19/24 Unknown Rx cholecalciferol (vitamin D3) 1,250 1,250 mcg PO QWEEK #12 caps 11/19/24 02/10/25 Rx mcg (50,000 unit) capsule memantine 28 mg capsule 28 mg PO DAILY #90 ea Unknown Rx sprinkle,extended release 24hr ropinirole 0.5 mg tablet 0.5 mg PO QHS #90 tabs 11/1902/14/25 Rx sotalol 120 mg tablet 120 mg PO BID for blood pres sure 01/02/25 02/15/25 08:00 Rx #180 TABLETS nitroglycerin 0.4 mg sublingual 0.4 mg sublingual Q5M PRN Chest 02/05/25 Unknown Rx tablet Pain #25 tabs Allergy/AdvReac Type Severity Reaction Status Date / Time lisinopril Allergy Severe Cough Verified 02/15/25 12:20 oxycodone (From Percocet) Allergy Severe Hallucinati Verified 02/15/25 12:20 ons pravastatin Allergy Intermediate Myalgia Verified 02/15/25 12:20 Quinolones Allergy Unknown Unknown Verified 02/15/25 12:20 pregabalin (From Lyrica) AdvReac Severe depression Verified 02/15/25 12:20 Family History (Reviewed 11/16/24 @ 14:39 by Sandy Ellsworth SUPPORT SERVICES SPECIALIST, SUPPORT SERVICES SPECIALIST-C) Mother No problems noted. Father Cancer Sister Cancer Surgical History History of esophagogastroduodenoscopy (EGD) History of cardiac catheterization Hx of hernia repair Hx of colonoscopy History of left heart catheterization (09/2016) History of incisional hernia repair History of coronary artery stent placement (08/06/12) H/O coronary artery bypass surgery (03/27/04) History of tonsillectomy History of cholecystectomy Social History (Updated 11/16/24 @ 14:40 by Sandy Ellsworth SUPPORT SERVICES SPECIALIST, SUPPORT SERVICES SPECIALIST-C) Smoking Status: Former smoker pack-years: 37 Tobacco: How many years used: 25 how long ago did patient quit smokin alcohol intake: current alcohol intake frequency: 0-2 drinks per day Alcohol type: beer and hard liquor substance use type: does not use caffeine: Yes Type: coffee Number of servings: 2 what type of physical activity do you participate in: none seatbelt use: always do you feel safe at home: Yes Review of Systems (Anesthesia) ROS Narrative System reviewed and no additional complaints, except as documented.
--- NOTE | 2025-02-15 13:38 | PRE.ANES_ITS ---
ASA Classification* ASA Classification ASA Classification: 3 Assessment & Plan Anesthesia* Anesthesia Assessment Anesthesia Assessment: Discussed sedation and/or anesthesia options, risks, benefits, and alternatives with patient/parents/legal guardian/POA. Questions invited. The patient/parents/legal guardian/POA seems to understand and agrees to proceed with anesthesia plan. Reviewed the physical assessment, medical history, allergy history and patient home medications list prior to surgery/procedure/anesthetic and documented any changes. Performed airway and anesthesia risk assessments. Anesthesia Type Anesthesia Type: General History Source History Obtained from:: Patient and Chart Anesthesia Focused Assessment* Temperature: 97.3 F Pulse Rate: 71 Blood Pressure: 153/83 Respiratory Rate: 16 Pulse Ox: 99 Oxygen Delivery Method: Room Air Airway Assessment Mouth opens: >3 cm Mallampati Score: I Teeth Condition: Dentures (Patient has full upper and lower dentures. They will come out.) Neck Range of motion (ROM): Limited ROM (Slight Decrease) Labs Anesthesia Preop lab: CBC WBC 7.7 K/mm3 (4.4-11.0) 02/14/25 13:00 02/14/25 RBC 3.79 M/mm3 (4.6-6.2) L 02/14/25 13:00 02/14/25 Hgb 13.8 g/dL (13.0-16.5) 02/14/25 13:00 02/14/25 Hct 39.2 % (40-54) L 02/14/25 13:00 02/14/25 Plt Count 124 K/mm3 (150-450) L 02/14/25 13:00 02/14/25 CHEMISTRY Potassium 4.2 mmol/L (3.3-5.1) 02/14/25 13:00 02/14/25 Sodium 138 mmol/L (133-145) 02/14/25 13:00 02/14/25 Magnesium 2.1 mg/dL (1.5-2.2) 11/08/24 11:48 11/08/24 Phosphorus 3.2 mg/dL (2.5-4.9) 09/26/23 07:22 09/26/23 BUN 10 mg/dL (4-19) 02/14/25 13:00 02/14/25 Creatinine 0.95 mg/dL (0.70-1.20) 02/14/25 13:00 02/14/25 Glucose 89 mg/dL (70-99) 02/14/25 13:00 02/14/25 POC Glucose 111 mg/dL (74-106) H 12/02/23 10:43 12/02/23 TSH 3.440 uIU/mL (0.300-4.200) 11/08/24 11:48 10/17 11/09 COAG PT 16.1 SECONDS (11.7-14.9) H 12/02/23 10:45 11/15 02/07 Pre-Assessment Diagnosis/Proposed Procedure Planned Operative Procedure(s): turp Anesthesia History 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 When Was Last Pacemaker Check QUESTION #4 FULL TEXT: You/Your Family Experience fever (hyperthermia) with Anesthesia Last Oral Intake Last Oral intake: Last Oral Intake NPO since 14:00 02/15/25 12:23 Meds taken in AM with sips of water? 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 Female No 02/14/25 09:17 HX of Motion Sickness No 02/14/25 09:17 HX of N/V After Surgery No 02/14/25 09:17 Non-Smoker Yes 02/14/25 09:17 Duration of Surgery greater Yes 02/14/25 09:17 than 60 minutes Number of Risk Factors 2 02/14/25 09:17 PONV Score Moderate Risk 02/14/25 09:17 Height & Weight Height & Weight: Anesthesia: Height & Weight Height 5 ft 6 in 02/15/25 12:23 Weight: 86.5 kg 02/15/25 12:23 Body Mass Index (BMI) 30.7 02/15/25 12:23 Respiratory Assessment Respiratory Assessment - lay out carpenter: Respiratory Tract Infection Hx - lay out carpenter Hx Respiratory Tract Infection No 02/14/25 09:17 STOP Sleep Apnea STOP Sleep Apnea - lay out carpenter: STOP Sleep Apnea - lay out carpenter Hx Hypertension Yes: controlled with med 02/14/25 09:17 Hx Sleep Apnea No 02/14/25 09:17 CPAP No 08/30/22 14:35 BIPAP Do you snore loudly (louder No 02/14/25 09:17 than talking or can be heard Do you often feel tired/ No 02/14/25 09:17 fatigued/ sleepy during daytime? Has anyone observed you stop No 02/14/25 09:17 breathing during sleep? STOP Results Negative 02/14/25 09:17 QUESTION #5 FULL TEXT : Do you snore loudly (louder than talking or can be heard through closed doors)? 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 Specify any problems Hx of Preganancy in last 3 N/A 02/14/25 09:17 Months Nurse Filling Out Transfusion NBUCHER 02/14/25 09:17 & Questions: Date: 02/14/25 02/14/25 09:17 Time: 09:18 02/14/25 09:17 Patient unable to answer at this time (ie. confused, unrespo /Reproduction History /Reproductive History - lay out carpenter: /Reproductive Hx- lay out carpenter Hx Now No 02/14/25 09:17 Gestational Age (in weeks): EDC: Hx Hx Para Hx Section SAB No 02/14/25 09:17 Active Medications Active Medications: Current Medications Generic Name Dose Route Start Last Admin Trade Name Freq PRN Reason Stop Dose Admin Cefazolin Sodium 2 gm/ Sodium 110 mls @ 200 mls/hr 02/15/25 14:05 Chloride IV 02/15/25 14:37 INTRAOP ONE Lactated Ringer's 1,000 mls @ 15 mls/hr 02/15/25 12:00 02/15/25 13:05 IV 15 mls/hr .Q48H AMANDA Administration PFSH Medical History (Updated 02/14/25 @ 09:31 by Aurelia Choi) Loss of hearing History of Clostridium difficile infection Prostate disease Restless legs Seizures Shortness of breath on exertion Chronic cough History of edema Chest pain Lower extremity edema BPH (benign prostatic hyperplasia) Fatigue Wears hearing aid Wears dentures Wears glasses Arthritis High cholesterol Gastric reflux COPD (chronic obstructive pulmonary disease) History of echocardiogram History of stress test Cardiology follow-up encounter History of atrial fibrillation Sleep apnea Anemia Former smoker Atrial fibrillation Coronary artery disease Hypertension Fatigue (HFpEF) heart failure with preserved ejection fraction Insomnia DDD (degenerative disc disease), lumbar Thrombocytopenia Actinic skin damage Esophageal reflux Macular degeneration (senile) of retina, unspecified Mixed hyperlipidemia TIA (transient ischemic attack) Syncope Cardiac arrest with ventricular fibrillation Essential (primary) hypertension HLD (hyperlipidemia) Paroxysmal A-fib CVA (cerebral vascular accident) (05/2018) Acute coronary thrombosis not resulting in myocardial infarction Home Medications ?Medication ?Instructions ?Recorded ?Last Taken ?Type pantoprazole 40 mg tablet,delayed 40 mg PO DAILY #60 t abs 07/14/22 02/15/25 08: 00 Rx release (Protonix) furosemide 40 mg tablet 40 mg PO DAILY #90 tabs 01/0712/01/23 Rx apixaban 5 mg tablet (Eliquis) 5 mg PO BID #180 tabs 1 08/27/23 02/12/25 Rx atorvastatin 80 mg tablet 80 mg PO DAILY for cholester ol #90 07/06/24 02/14/25 Rx TABLETS benzonatate 100 mg capsule 100 mg PO BID PRN cough #18 0 caps 11/19/24 Unknown Rx cholecalciferol (vitamin D3) 1,250 1,250 mcg PO QWEEK #12 caps 11/19/24 02/10/25 Rx mcg (50,000 unit) capsule memantine 28 mg capsule 28 mg PO DAILY #90 ea Unknown Rx sprinkle,extended release 24hr ropinirole 0.5 mg tablet 0.5 mg PO QHS #90 tabs 11/1902/14/25 Rx sotalol 120 mg tablet 120 mg PO BID for blood pres sure 01/02/25 02/15/25 08:00 Rx #180 TABLETS nitroglycerin 0.4 mg sublingual 0.4 mg sublingual Q5M PRN Chest 02/05/25 Unknown Rx tablet Pain #25 tabs Allergy/AdvReac Type Severity Reaction Status Date / Time lisinopril Allergy Severe Cough Verified 02/15/25 12:20 oxycodone (From Percocet) Allergy Severe Hallucinati Verified 02/15/25 12:20 ons pravastatin Allergy Intermediate Myalgia Verified 02/15/25 12:20 Quinolones Allergy Unknown Unknown Verified 02/15/25 12:20 pregabalin (From Lyrica) AdvReac Severe depression Verified 02/15/25 12:20 Family History (Reviewed 11/16/24 @ 14:39 by Sandy Ellsworth SENIOR INFORMATION SECURITY ANALYST, SENIOR INFORMATION SECURITY ANALYST-C) Mother No problems noted. Father Cancer Sister Cancer Surgical History History of esophagogastroduodenoscopy (EGD) History of cardiac catheterization Hx of hernia repair Hx of colonoscopy History of left heart catheterization (09/2016) History of incisional hernia repair History of coronary artery stent placement (08/06/12) H/O coronary artery bypass surgery (03/27/04) History of tonsillectomy History of cholecystectomy Social History (Updated 11/16/24 @ 14:40 by Sandy Ellsworth SENIOR INFORMATION SECURITY ANALYST, SENIOR INFORMATION SECURITY ANALYST-C) Smoking Status: Former smoker pack-years: 37 Tobacco: How many years used: 25 how long ago did patient quit smokin alcohol intake: current alcohol intake frequency: 0-2 drinks per day Alcohol type: beer and hard liquor substance use type: does not use caffeine: Yes Type: coffee Number of servings: 2 what type of physical activity do you participate in: none seatbelt use: always do you feel safe at home: Yes Review of Systems (Anesthesia) ROS Narrative System reviewed and no additional complaints, except as documented.
--- NOTE | 2025-02-15 14:05 | PROS_PTH ---
PATIENT: RO SWAN LOC: MS3 U#:[id number] AGE/SX: 84/M ROOM: [facility] [place] RE02/15/[address]: Dr. Del Matthews MD : 1940 BED: 1 DIS: 02/16/2025 SPEC #: [id number] RECD: 02/15/25 16:37 STATUS: RAMY CAMPOVERDE #: [id number] BRY: 02/15/25 14:[address]: Del Matthews DEPT: SURGICAL PATHOLOGY RECD BY: Vamsi Guzman ENTERED: 02/18/25 12:12 SP TYPE: TURP OTHR DR: MD Dr. Jose Krishnamurthy MD Tissues: A - Prostate, NOS Procedures: Immunohistochemical Stains Surgery Specimen Level IV IHC Stain ADDITIONAL HEADER OPERATION: Cysto, transurethral resection, prostate PRE-OP DIAGNOSIS: Benign prostatic hyperplasia TISSUE SUBMITTED: A- Prostate tissue MICROSCOPIC DIAGNOSIS A. Prostate, transurethral resection: - Benign prostate tissue with focal sclerosing adenosis. - SMA, S100, and PIN4 IHCs support the histologic impression. MICROSCOPIC DESCRIPTION Slides are reviewed. All matched controls reacted appropriately. These tests were developed and their performance characteristics determined by [facility]. They may not have been cleared or approved by the U.S. Food and Drug Administration. The FDA has determined that such clearance or approval is not necessary.? The above immunohistochemical?markers are reviewed by the Pathologist. GROSS DESCRIPTION A. Received in formalin labeled with the patient's name and date of . Designated as prostate tissue is a 3.3 g, 3.9 x 3.7 x 0.9 cm aggregate of irregular, veliz, rubbery and cauterized tissue fragments. Entirely submitted in 3 cassettes. NC 02/18/2025 CPT:42896,[id number]
--- NOTE | 2025-02-15 14:05 | PROS_PTH ---
PATIENT: RO SWAN LOC: MS3 U#:[id number] AGE/SX: 84/M [place] [facility] [place]02/15/[address]: Dr. Del Matthews MD : 1940 BED: 1 DIS: 02/16/2025 SPEC #: [id number] RECD: 02/15/25 16:37 STATUS: RAMY CAMPOVERDE #: [id number] BRY: 02/15/25 14:[address]: Del Matthews DEPT: SURGICAL PATHOLOGY RECD BY: Vamsi Guzman ENTERED: 02/18/25 12:12 SP TYPE: TURP OTHR DR: MD Dr. Jose Krishnamurthy MD Tissues: A - Prostate, NOS Procedures: Immunohistochemical Stains Surgery Specimen Level IV IHC Stain ADDITIONAL HEADER OPERATION: Cysto, transurethral resection, prostate PRE-OP DIAGNOSIS: Benign prostatic hyperplasia TISSUE SUBMITTED: A- Prostate tissue MICROSCOPIC DIAGNOSIS A. Prostate, transurethral resection: - Benign prostate tissue with focal sclerosing adenosis. - SMA, S100, and PIN4 IHCs support the histologic impression. MICROSCOPIC DESCRIPTION Slides are reviewed. All matched controls reacted appropriately. These tests were developed and their performance characteristics determined by [facility]. They may not have been cleared or approved by the U.S. Food and Drug Administration. The FDA has determined that such clearance or approval is not necessary.? The above immunohistochemical?markers are reviewed by the Pathologist. GROSS DESCRIPTION A. Received in formalin labeled with the patient's name and date of . Designated as prostate tissue is a 3.3 g, 3.9 x 3.7 x 0.9 cm aggregate of irregular, veliz, rubbery and cauterized tissue fragments. Entirely submitted in 3 cassettes. OR 02/18/2025 CPT:[id number]
--- NOTE | 2025-02-15 15:02 | PCM.POST.ANE ---
Anesthesia: Postop Eval I Current Vital Signs Temperature: 98.2 F Pulse Rate: 61 Blood Pressure: 125/71 Respiratory Rate: 16 Pulse Ox: 94 Oxygen Delivery Method: Room Air Assessment Airway patent: Yes Spontaneous unlabored respirations: Yes Mental status: Asleep nausea: No Vomiting: No Anesthesia Complication: No Fluid Hydration Crystalloid volume administer (ml): 300 Total IV fluid infused: 300 Progress Note Anesthesia document: Postop Eval 1 completed: Yes
--- NOTE | 2025-02-15 15:18 | DCINST_ITS ---
Discharge Instructions DC O2, CPAP, BIPAP needs Home O2 Discharge instructions: No Dressing / Incision Discharge Activity: Return to Normal Activity and May Not Drive (while taking narcotic pain medications.) Dressing / Incision Call your doctor if you observe: Fever of 101 or Higher Follow Up Care Please Follow Up With: Del Matthews MD When: Call [phone] for an appointment Test Results: Test results from this visit will be discussed in further detail at your follow- up appointment, if applicable. Discharge Plan Admission Primary Reason for Your Visit: turp Attending Provider: Del Matthews Primary Care Provider: Jose Wolfe Consulting Providers: Vincenzo Corral Instructions Print Language: Montserratian Discharge Orders/Prescriptions Prescriptions: New cephalexin 500 mg capsule 500 mg PO BID Qty: 6 0RF Continued ropinirole 0.5 mg tablet 0.5 mg PO QHS Qty: 90 1RF cholecalciferol (vitamin D3) 1,250 mcg (50,000 unit) capsule 1,250 mcg PO QWEEK Qty: 12 1RF memantine 28 mg capsule,sprinkle,ER 24hr 28 mg PO DAILY Qty: 90 1RF benzonatate 100 mg capsule 100 mg PO BID PRN (Reason: cough) Qty: 180 1RF pantoprazole [Protonix] 40 mg tablet,delayed release (DR/EC) 40 mg PO DAILY Qty: 60 1RF furosemide 40 mg tablet 40 mg PO DAILY Qty: 90 3RF atorvastatin 80 mg tablet 80 mg PO DAILY Qty: 90 3RF sotalol 120 mg tablet 120 mg PO BID Qty: 180 3RF nitroglycerin 0.4 mg tablet, sublingual 0.4 mg SUBLINGUAL Q5M PRN (Reason: Chest Pain) Qty: 25 4RF Rx Instructions: Place one tab under tongue every 5 minutes x 3 doses as needed Held Eliquis 5 mg tablet 5 mg PO BID Qty: 180 4RF Hold Instructions: Resume on 02/22/25. Other Ambulatory Orders: 12 Lead EKG (Routine) Location: None Selected Ordered By: Dr. Vincenzo Corral Referrals / Follow Up: Del Matthews MD [Med Staff - Active Staff] - Jose Wolfe MD [Primary Care Provider] - Disposition Disposition (needs filled in before D/C Order can be placed): Home, Self Care
--- NOTE | 2025-02-15 15:18 | OP.PCM_ITS ---
Operative Report (Standard) Operative Information Date of Procedure: 02/15/25 Pre-Operative Diagnosis: BPH with obstruction Post-Operative Diagnosis: Same Surgery/Procedure Performed: Transurethral section of prostate hospital pharmacy director: No Type of Anesthesia: General RN Documented Start/Stop Times: Operation Date: 02/15/25 14:05 Case Time Into Pre-Op 02/15/25 11:57 Anesthesia Start 02/15/25 14:19 Into Room 02/15/25 14:19 Procedure Start 02/15/25 14:33 Procedure End 02/15/25 14:49 Anesthesia End 02/15/25 14:57 Out of Room 02/15/25 14:57 Into Recovery 02/15/25 15:00 Procedure Start Time: 14:33 Procedure Stop Time: 14:57 Select all DRAINS/GRAFTS/IMPLANTS that apply: Drains Drain details: 22 [place]ian three-way Trimble Estimated Blood Loss: Minimal Specimen collected: Yes Description of specimen(s) removed: Prostate tissue Description of surgery: In the preoperative setting I discussed with the patient how the surgery would be done with expect afterwards. We discussed how a prostate resection is done and we discussed the risk of the surgery including, bleeding, infection, retrograde ejaculation, changes with ejaculation or intercourse,. We discussed the possibility that the resection of the prostate may not alleviate his urinary symptoms. We discussed the small risk of developing scar tissue along the urethral channel and strictures. We also discussed the chance of the prostate could grow back and he may need further surgery or treatment in the future for prostate problems. Patient was taken back to the operating room, timeout procedure was performed, he was identified and marked and placed on the operating room table. He underwent general anesthesia. He was placed in dorsolithotomy position. Penis and testicles were prepped and draped in usual sterile fashion. Went into the bladder using the visual obturator with a resectoscope. Once inside the bladder identified the right and left ureteral orifice. I then identified the prostate and the anatomy of the prostate. I marked out the area of the sphincter and the verumontanum was identified. I then proceeded with the prostate resection first resected the median lobe. And then resected the right lobe of the prostate. Then to resect the left lobe of the prostate. I then resected the apical tissue of the prostate. This was a complete resection of all obstructive tissue to improve voiding and relieve obstruction. I then made sure that there was no injury to the sphincter or the verumontanum was still intact. At the end of the resection all the chips were Ellik out of the bladder. I then identified the left and right ureteral orifice and these were confirmed to be in good position and effluxing and not injured. The resectoscope was removed, a 22 Namibian catheter was placed into the bladder on continuous irrigation. And the urine was fairly light pink color and draining normally. He was taken back to the PACU in good condition. Surgical Findings: Stretched out bladder obstructive but short prostate channel Complications Complications: No Admit VTE Documentation VTE Present on Admission: No VTE Mechan Device Prophylaxis: SCD's VTE Pharm Prophylaxis ordered?: No
[2025-02-15] MEDS: 0.9% Normal Saline (1000mL) 1,000 ML 125 ML IV (18:28)
--- NOTE | 2025-02-15 20:04 | POSTOPAN2_ITS ---
Anesthesia Postop Eval I Sum Postop Eval Completion status Anesthesia document: Postop Eval 1 completed: Yes Anesthesia Postop Eval I Summary Anesthesia Postop Eval I Summary: Anesthesia Postop Eval I: Assessment Summary Airway patent Yes 02/15/25 15:03 HOSPITAL UNIT COORDINATOR.JDEF Spontaneous unlabored Yes 02/15/25 15:03 HOSPITAL UNIT COORDINATOR.JDEF respirations Mental status Asleep 02/15/25 15:03 HOSPITAL UNIT COORDINATOR.JDEF nausea No 02/15/25 15:03 HOSPITAL UNIT COORDINATOR.JDEF Vomiting No 02/15/25 15:03 HOSPITAL UNIT COORDINATOR.JDEF Anesthesia Postop Eval I: Fluid Summary Crystalloid volume administer 300 02/15/25 15:03 HOSPITAL UNIT COORDINATOR.JDEF (ml) Colloids volume administered ( ml) Blood Product volume administered (ml) Total IV fluid infused 300 02/15/25 15:03 HOSPITAL UNIT COORDINATOR.JDEF Anesthesia Postop Eval I: Summary Notes Anesthesia Complication No 02/15/25 15:03 HOSPITAL UNIT COORDINATOR.JDEF Anesthesia Complication Comment: Post-operative progress note Anesthesia: Postop Eval II Evaluation Mental status: Awake and Calm Pain Level: 2 nausea: No Vomiting: No Complications Anesthesia Complication: No
--- NOTE | 2025-02-15 20:04 | POSTOPAN2_ITS ---
Anesthesia Postop Eval I Sum Postop Eval Completion status Anesthesia document: Postop Eval 1 completed: Yes Anesthesia Postop Eval I Summary Anesthesia Postop Eval I Summary: Anesthesia Postop Eval I: Assessment Summary Airway patent Yes 02/15/25 15:03 GLOBAL SUPPLY CHAIN VICE PRESIDENT.JDEF Spontaneous unlabored Yes 02/15/25 15:03 GLOBAL SUPPLY CHAIN VICE PRESIDENT.JDEF respirations Mental status Asleep 02/15/25 15:03 GLOBAL SUPPLY CHAIN VICE PRESIDENT.JDEF nausea No 02/15/25 15:03 GLOBAL SUPPLY CHAIN VICE PRESIDENT.JDEF Vomiting No 02/15/25 15:03 GLOBAL SUPPLY CHAIN VICE PRESIDENT.JDEF Anesthesia Postop Eval I: Fluid Summary Crystalloid volume administer 300 02/15/25 15:03 GLOBAL SUPPLY CHAIN VICE PRESIDENT.JDEF (ml) Colloids volume administered ( ml) Blood Product volume administered (ml) Total IV fluid infused 300 02/15/25 15:03 GLOBAL SUPPLY CHAIN VICE PRESIDENT.JDEF Anesthesia Postop Eval I: Summary Notes Anesthesia Complication No 02/15/25 15:03 GLOBAL SUPPLY CHAIN VICE PRESIDENT.JDEF Anesthesia Complication Comment: Post-operative progress note Anesthesia: Postop Eval II Evaluation Mental status: Awake and Calm Pain Level: 2 nausea: No Vomiting: No Complications Anesthesia Complication: No
--- NOTE | 2025-02-15 20:04 | PCM.POSTANE2 ---
Anesthesia Postop Eval I Sum Postop Eval Completion status Anesthesia document: Postop Eval 1 completed: Yes Anesthesia Postop Eval I Summary Anesthesia Postop Eval I Summary: Anesthesia Postop Eval I: Assessment Summary Airway patent Yes 02/15/25 15:03 HEALTHCARE CORPORATE ACCOUNT DIRECTOR.JDEF Spontaneous unlabored Yes 02/15/25 15:03 HEALTHCARE CORPORATE ACCOUNT DIRECTOR.JDEF respirations Mental status Asleep 02/15/25 15:03 HEALTHCARE CORPORATE ACCOUNT DIRECTOR.JDEF nausea No 02/15/25 15:03 HEALTHCARE CORPORATE ACCOUNT DIRECTOR.JDEF Vomiting No 02/15/25 15:03 HEALTHCARE CORPORATE ACCOUNT DIRECTOR.JDEF Anesthesia Postop Eval I: Fluid Summary Crystalloid volume administer 300 02/15/25 15:03 HEALTHCARE CORPORATE ACCOUNT DIRECTOR.JDEF (ml) Colloids volume administered ( ml) Blood Product volume administered (ml) Total IV fluid infused 300 02/15/25 15:03 HEALTHCARE CORPORATE ACCOUNT DIRECTOR.JDEF Anesthesia Postop Eval I: Summary Notes Anesthesia Complication No 02/15/25 15:03 HEALTHCARE CORPORATE ACCOUNT DIRECTOR.JDEF Anesthesia Complication Comment: Post-operative progress note Anesthesia: Postop Eval II Evaluation Mental status: Awake and Calm Pain Level: 2 nausea: No Vomiting: No Complications Anesthesia Complication: No
--- NOTE | 2025-02-15 20:04 | PCM.POSTANE2 ---
Anesthesia Postop Eval I Sum Postop Eval Completion status Anesthesia document: Postop Eval 1 completed: Yes Anesthesia Postop Eval I Summary Anesthesia Postop Eval I Summary: Anesthesia Postop Eval I: Assessment Summary Airway patent Yes 02/15/25 15:03 UNLOADER.JDEF Spontaneous unlabored Yes 02/15/25 15:03 UNLOADER.JDEF respirations Mental status Asleep 02/15/25 15:03 UNLOADER.JDEF nausea No 02/15/25 15:03 UNLOADER.JDEF Vomiting No 02/15/25 15:03 UNLOADER.JDEF Anesthesia Postop Eval I: Fluid Summary Crystalloid volume administer 300 02/15/25 15:03 UNLOADER.JDEF (ml) Colloids volume administered ( ml) Blood Product volume administered (ml) Total IV fluid infused 300 02/15/25 15:03 UNLOADER.JDEF Anesthesia Postop Eval I: Summary Notes Anesthesia Complication No 02/15/25 15:03 UNLOADER.JDEF Anesthesia Complication Comment: Post-operative progress note Anesthesia: Postop Eval II Evaluation Mental status: Awake and Calm Pain Level: 2 nausea: No Vomiting: No Complications Anesthesia Complication: No
[2025-02-15] MEDS: Cefazolin 1 GM/50 ML BAG IV (21:38)
[2025-02-15] MEDS: Sotalol Hydrochloride 80 MG Tablet 120 MG PO (21:38)
[2025-02-16 01:45] VITALS: BP 140/73; PULSE 80; RESP 16; TEMP 37.2; O2SAT 95
[2025-02-16] MEDS: 0.9% Normal Saline (1000mL) 1,000 ML 125 ML IV (02:30)
[2025-02-16 06:06] VITALS: BP 125/70; PULSE 82; RESP 16; TEMP 36.7; O2SAT 96
[2025-02-16] MEDS: Cefazolin 1 GM/50 ML BAG IV (06:12)
[2025-02-16 08:41] VITALS: BP 151/91; PULSE 86; RESP 17; TEMP 36.8; O2SAT 96
[2025-02-16] MEDS: Sotalol Hydrochloride 80 MG Tablet 120 MG PO (08:47)
[2025-02-16] MEDS: Memantine Hydrochloride 10 MG Tablet PO (08:47)
[2025-02-16] MEDS: 0.9% Saline Lock 10 ML Syringe IV (08:48)
--- NOTE | 2025-02-16 09:33 | PCM.DC.SUM ---
Providers Date of Admission: 02/15/25 Date of Discharge: 02/16/25 Primary Care Physician: Dr. Jose Wolfe MD Reason For Visit: Cysto,Transurethral Resection Prostate Medications at Discharge Home Medications pantoprazole 40 mg tablet,delayed release (Protonix) 40 mg PO DAILY #60 tabs 07/14/22 furosemide 40 mg tablet 40 mg PO DAILY #90 tabs 03/23/23 apixaban 5 mg tablet (Eliquis) 5 mg PO BID #180 tabs 06/26/24 Held on 02/15/25. Instructions: Resume on 02/22/25. atorvastatin 80 mg tablet 80 mg PO DAILY for cholesterol #90 TABLETS 07/06/24 benzonatate 100 mg capsule 100 mg PO BID PRN cough #180 caps 11/19/24 cholecalciferol (vitamin D3) 1,250 mcg (50,000 unit) capsule 1,250 mcg PO QWEEK #12 caps 11/19/24 memantine 28 mg capsule sprinkle,extended release 24hr 28 mg PO DAILY #90 ea 11/19/24 ropinirole 0.5 mg tablet 0.5 mg PO QHS #90 tabs 11/19/24 sotalol 120 mg tablet 120 mg PO BID for blood pressure #180 TABLETS 01/02/25 nitroglycerin 0.4 mg sublingual tablet 0.4 mg sublingual Q5M PRN Chest Pain #25 tabs 02/05/25 cephalexin 500 mg capsule 500 mg PO BID #6 caps 02/15/25 Hospital Course Operations TURP Weight / BMI Weight Weight: 86.5 kg Body Mass Index (BMI) 30.7 ABG / Lab / Microbiology Data 02/14/25 13:00 02/14/25 13:00 D/C Instructions Call your doctor if you observe: Fever of 101 or Higher DC O2, CPAP, BIPAP Needs Home O2 Discharge instructions: No Please Follow Up With: Del Matthews MD When: Call [phone] for an appointment Meaningful Use Info Meaningful Use Meaningful Use Diagnoses (Choose all that apply): None applicable Discharge Plan Admission Admit Date/Time: 02/15/25 15:00 Primary Reason for Your Visit: turp Attending Provider: Del Matthews Primary Care Provider: Jose Wolfe Consulting Providers: Vincenzo Corral Discharge Orders/Prescriptions Prescriptions: New cephalexin 500 mg capsule 500 mg PO BID Qty: 6 0RF Continued ropinirole 0.5 mg tablet 0.5 mg PO QHS Qty: 90 1RF cholecalciferol (vitamin D3) 1,250 mcg (50,000 unit) capsule 1,250 mcg PO QWEEK Qty: 12 1RF memantine 28 mg capsule,sprinkle,ER 24hr 28 mg PO DAILY Qty: 90 1RF benzonatate 100 mg capsule 100 mg PO BID PRN (Reason: cough) Qty: 180 1RF pantoprazole [Protonix] 40 mg tablet,delayed release (DR/EC) 40 mg PO DAILY Qty: 60 1RF furosemide 40 mg tablet 40 mg PO DAILY Qty: 90 3RF atorvastatin 80 mg tablet 80 mg PO DAILY Qty: 90 3RF sotalol 120 mg tablet 120 mg PO BID Qty: 180 3RF nitroglycerin 0.4 mg tablet, sublingual 0.4 mg SUBLINGUAL Q5M PRN (Reason: Chest Pain) Qty: 25 4RF Rx Instructions: Place one tab under tongue every 5 minutes x 3 doses as needed Held Eliquis 5 mg tablet 5 mg PO BID Qty: 180 4RF Hold Instructions: Resume on 02/22/25. Other Ambulatory Orders: 12 Lead EKG (Routine) Location: None Selected Ordered By: Dr. Vincenzo Corral Referrals / Follow Up: Del Matthews MD [Med Staff - Active Staff] - Jose Wolfe MD [Primary Care Provider] - Disposition Discharge Orders: Discharge Patient (Routine); Ordered 02/16/25 Ordered By: Dr. Del Matthews
[2025-02-16 14:50] VITALS: BP 131/73; PULSE 67; RESP 17; TEMP 36.4; O2SAT 100
== END 2025-02-16 16:19 | disposition home or self-care (01) ==
LOC: SDC 17:21 → MS3 17:21
PROVIDERS: Anesthesiology; Admitting Provider Urology; PCP Internal Medicine; Referring Provider Urology; Visit Provider Urology
PROC: 0VT08ZZ Resection of Prostate, Via Natural or Artificial Opening Endoscopic (ICD-10-PCS; CPT 52601; principal; 2025-02-15 13:55)
DX: N40.1 Benign prostatic hyperplasia with lower urinary tract symptoms (principal); I11.0 Hypertensive heart disease with heart failure; I50.32 Chronic diastolic (congestive) heart failure; I48.0 Paroxysmal atrial fibrillation; Z87.891 Personal history of nicotine dependence; N13.8 Other obstructive and reflux uropathy; R35.0 Frequency of micturition; R35.1 Nocturia; E78.2 Mixed hyperlipidemia; Z79.899 Other long term (current) drug therapy; Z79.01 Long term (current) use of anticoagulants
CPT/HCPCS: 52601; 00914; 36415; 80048; 85027; 88305; 88341; 88342; 93005; 96361; 96365; 96366; 96372; 99221; A4216; G0378; J2405

== ENCOUNTER → 2025-02-28 | Outpatient (CLI) | payer MEDICARE, OTHER, SELFPAY ==
[2025-02-28 13:53] LABS: Hematocrit 40.9 % (40-54); Hemoglobin 14.3 g/dL (13.0-16.5); Mean Corp Hgb Conc 35.0 g/dL (32-36); Mean Corpuscular Volume 102.0 fL (80-94); Mean Platelet Vol. 10.3 fl (6.2-12.0); Platelet Count 156 K/mm3 (150-450); RBC Distribution Width CV 11.9 % (11.6-14.6); RBC Distribution Width SD 44.4 fl (35.1-43.9); Red Blood Count 4.01 M/mm3 (4.6-6.2); White Blood Count 8.1 K/mm3 (4.4-11.0)
[2025-02-28 15:02] LABS: Anion Gap 11 (5-15); BUN 11 mg/dL (4-19); BUN/Creat Ratio 11.8 RATIO (10-20); Calcium,Total 9.3 mg/dL (7.6-11.0); Carbon Dioxide 24.6 mmol/L (21.0-32.0); Chloride 104 mmol/L (98-108); Glucose 116 mg/dL (70-99); Potassium 4.3 mmol/L (3.3-5.1)
== END | disposition home or self-care (01) ==
LOC: LAB 13:34
PROVIDERS: PCP Internal Medicine; Referring Provider Internal Medicine Cardiovascular Disease; Visit Provider Internal Medicine Cardiovascular Disease
DX: D64.9 Anemia, unspecified (principal); I48.0 Paroxysmal atrial fibrillation
CPT/HCPCS: 36415; 80048; 85027